=== PATIENT | female | born 1995 | race Caucasian/White ===

== ENCOUNTER 2017-07-06 14:40 | Emergency (ER) | payer MEDICAID, SELFPAY ==
[2017-07-06 14:41] VITALS: BP 144/93; PULSE 108; RESP 18; TEMP 37; O2SAT 97; BMI 33.6
[2017-07-06 15:57] VITALS: PULSE 92; RESP 18
[2017-07-06] MEDS: Ipratropium/Albuterol Sulfate 3 ML AMPUL.NEB INHALATION (15:57)
--- NOTE | 2017-07-06 16:24 | ED.DCSUM_ITS ---
- ER Visit Summary Date of Service: 07/06/17 Chief Complaint: [] Runny nose harsh cough for about a week asthma History of Present Illness: The patient is a 21 F [] those symptoms for about 1 week she has been seen by urgent care she is on prednisone taper she reports the cough is still very harsh generally dry nonproductive her nose is running. She was not tested for the flu but she was tested for strep throat negative. She has her inhalers at home when she reports her asthma is generally stable she is doing fine with it is just the coughing Physical Examination: [] Here her nose is congested her throat is clear her lungs sound clear heart tones are normal abdomen soft nontender upper lower extremities unremarkable she is resting comfortably bed she has no major cough now Test Results: [] Emergency Department Course and Treatment: [] Explained to patient we could do a chest x-ray she declined that her main issue is the cough, I will treat her with Kenalog IM, Tylenol No. 3 as a cough suppressant, Flonase to help with the rhinorrhea she has all of her other asthma meds at home she is would benefit from one day off work and she will follow with her doctors the next few days return for change in symptoms Treatment Plan: [] Disposition: [] Home stable Impression: [] URI with harsh cough exacerbation of asthma This note was generated with [employer] dictation software. It may contain incorrect words, spelling, and punctuation that were not noted in review of the chart prior to signing ED Disposition - Plan for ED Patient: Chief Complaint: Cold Sx Referrals: Rena Gamino MD [Primary Care Provider] -
--- NOTE | 2017-07-06 16:24 | ED.DEP ---
ED Disposition - Plan for ED Patient: Chief Complaint: Cold Sx Instructions: ED Upper Resp Infec No Abx Tx, ED Flu Prescriptions: Acetaminophen/Codeine #3 [Tylenol #3 Tablet] 1 tab PO QHS #10 tab Fluticasone 0.05% [Flonase Nasal [place]] 1 spray NASAL BID #1 nasal.sry Referrals: Rena Gamino MD [Primary Care Provider] -
[2017-07-06] MEDS: Triamcinolone Acetonide 40 MG/ML Vial IM (16:45)
[2017-07-06 17:14] VITALS: BP 126/67; PULSE 103; RESP 16
== END 2017-07-06 17:17 | disposition home or self-care (01) ==
LOC: ED 15:52
PROVIDERS: Emergency Provider Emergency Medicine; Family Provider Family Medicine; PCP Family Medicine
DX: J06.9 Acute upper respiratory infection, unspecified (principal); J45.901 Unspecified asthma with (acute) exacerbation
CPT/HCPCS: 94640; 99282

== ENCOUNTER 2017-07-09 23:06 | Emergency (ER) | payer MEDICAID, SELFPAY ==
[2017-07-09 23:07] VITALS: BP 156/80; PULSE 95; RESP 16; TEMP 36.7; O2SAT 96; BMI 34.1
--- NOTE | 2017-07-09 23:30 | ED.DCSUM_ITS ---
- ER Visit Summary Date of Service: 07/09/17 Chief Complaint: [Sore throat] History of Present Illness: The patient is a 21 F [presents to the emergency department chief complaint of a sore throat for the last 3-4 days. Patient states that about 5 or 6 days ago she developed a cough and body aches and was seen at an urgent care diagnosed with an upper respiratory infection. The following day the patient was seen in the emergency department and diagnosed with upper respiratory infection and possible influenza. Patient states the cough is improved but now the throat is causing her more discomfort. She denies any fevers. Patient denies sick contacts.] Physical Examination: [HEENT-PERRLA, EOMI. Cranial nerves II through XII grossly intact. TMs clear. Mucous membranes moist. Mild anterior cervical lymphadenopathy slightly tender on the left adenopathy. Mild pharyngeal erythema. No exudates noted. Uvula in the midline. No trismus. Cardiovascular-regular rate and rhythm without murmur or ectopy Lungs-clear to auscultation, chest wall stable without crepitus or subcu emphysema Abdomen-normoactive bowel sounds, soft, nontender, no rebound or rigidity, no peritoneal signs. Extremities-intact ?4, normal range of motion, normal pulses, atraumatic] Test Results: [Rapid strep screen performed] was negative Emergency Department Course and Treatment: [] Treatment Plan: [Patient advised to use Motrin or Tylenol for discomfort and try saltwater gargles] Disposition: [Discharged home in stable condition. Patient advised to return if difficulty swallowing own secretions high fevers, or condition should worsen in any way.] Impression: [Viral pharyngitis] This note was generated with [employer] dictation software. It may contain incorrect words, spelling, and punctuation that were not noted in review of the chart prior to signing ED Disposition - Plan for ED Patient: Chief Complaint: Sore Throat Referrals: Rena Gamino MD [Primary Care Provider] -
--- NOTE | 2017-07-09 23:45 | ED.DEP ---
ED Disposition - Plan for ED Patient: Chief Complaint: Sore Throat Instructions: ED Pharyngitis Viral Referrals: Rena Gamino MD [Primary Care Provider] - 5-7 Days
[2017-07-09 23:48] VITALS: BP 137/77; PULSE 95; O2SAT 99
== END 2017-07-09 23:53 | disposition home or self-care (01) ==
LOC: ED 23:42
PROVIDERS: Emergency Provider Emergency Medicine; Family Provider Family Medicine; PCP Family Medicine
DX: J02.9 Acute pharyngitis, unspecified (principal); J45.909 Unspecified asthma, uncomplicated
CPT/HCPCS: 87880; 99282

== ENCOUNTER → 2017-11-18 17:47 | Outpatient (CLI) | payer OTHER, SELFPAY ==
[2017-11-18 18:17] LABS: Absolute Lymphocyte Count 2.28 X10^3/ul (0.83-4.51); Absolute Neutrophil Count 5.9 X10^3/uL (2.0-7.7); Basophil# 0.02 X10^3/uL; Basophil% 0.2 % (0-1); Eosinophil# 0.13 X10^3/uL; Eosinophils% 1.5 % (0-5); Hematocrit 36.5 % (37-47); Hemoglobin 12.4 g/dl (12.0-15.0); Lymphocyte # 2.28 X10^3/ul (4.0); Lymphocyte % 25.6 % (19-41); Mean Corpuscular Hgb 27.7 pg (27.0-32.0); Mean Corpuscular Volume 81.5 fL (81-99); Monocyte# 0.58 X10^3/uL; Monocyte% 6.5 % (0-10); Neutrophil # 5.86 X10^3/uL (2.7-7.7); Neutrophil % 65.9 % (47-70); POSITIVE COUNT NO; POSITIVE DIFFERENTIAL NO; POSITIVE MORPHOLOGY NO; Platelet Count 272 K/mm3 (150-450); RBC Distribution Width CV 12.9 % (11.6-14.6); RBC Distribution Width SD 38.2 fl (35.1-43.9); Red Blood Count 4.48 M/mm3 (4.2-5.4); White Blood Count 8.9 K/mm3 (4.4-11.0)
[2017-11-18 19:58] LABS: Glucose Challenge Gest 1H 50g 107 mg/dL (70-140)
[2017-11-18 21:10] LABS: Chlamydia Trachomatis by PCR Negative (Negative); Neisserai gonorrhoeae by PCR Negative (Negative); Probe Check PASS; Sample Adequacy Control PASS; Specimen Processing Control PASS
[2017-11-19 10:43] LABS: HIV - WCH Non-Reactive (Nonreactive); Rubella IgG 12.8 IU/mL
[2017-11-21 03:47] LABS: Rapid Plasmin Reagin (RPR) NONREACTIVE (NONREACTIVE)
[2017-11-21 07:08] LABS: HEPATITIS B SURFACE AG Negative (Negative)
[2017-11-27 13:06] LABS: HPV APTIMA, High Risk Positive (Negative); HPV Reflexed? YES, CHARGE PATIENT
== END ==
PROVIDERS: Family Provider Family Medicine; PCP Family Medicine; Visit Provider Obstetrics & Gynecology
DX: Z34.90 Encounter for supervision of normal pregnancy, unspecified, unspecified trimester (principal); Z12.4 Encounter for screening for malignant neoplasm of cervix
CPT/HCPCS: 36415; 82950; 85025; 86592; 86703; 86762; 86850; 86900; 87086; 87088; 87340; 87491; 87591; 87624; 88175; G0145

== ENCOUNTER → 2017-11-27 14:47 | Outpatient (CLI) | payer OTHER, SELFPAY ==
--- NOTE | 2017-11-27 14:49 | US_ITS ---
STUDY: FIRST TRIMESTER OBSTETRICAL ULTRASOUND REASON FOR EXAM: Female, 22 years old. Dating. LMP: 09/22/2017 TECHNIQUE: Transabdominal and Transvaginal PRIOR ULTRASOUND: None. FINDINGS: There is visualization of a single gestational sac in a normal intrauterine position. The mean sac diameter (MSD) measures 2.1 cm, indicating an estimated gestational age (EGA) of 7 weeks, 1 days. The gestational sac shape is within normal limits. There is a visualized yolk sac. The yolk sac measures 5 mm. The placenta is non-visualized. There is visualization of a live embryo. The crown-rump length (CRL) measures 1.2 cm, indicating an estimated gestational age (EGA) of 7 weeks, 3 days. There is demonstrated cardiac activity with a heart rate of 141 bpm. The estimated gestation age (EGA) by LMP is 9 weeks, 3 days. The estimated date of delivery (LORETTA) by LMP is 06/29/2018. The estimated gestation age (EGA) by US is 7 weeks, 2 days. The estimated date of delivery (LORETTA) by US is 07/14/2018. The uterus measures 8.9 x 6.7 x 5.0 cm. There is no demonstrated uterine fibroid. The cervix is closed. The right ovary measures 4.4 x 2.2 x 1.8 cm. There is no right ovarian cyst. There is no visualized right adnexal mass or complex lesion. The left ovary measures 3.9 x 2.7 x 2.3 cm. There is a 2 cm cyst. There is no visualized left adnexal mass or complex lesion. There is no fluid in the cul de sac. US/Init OB < 14Wks US IMPRESSION: Single live intrauterine gestation with ultrasound EGA of 7 weeks 2 days. Electronically Signed: Otis Kumar MD at 16:20 EDT , Service support ,
== END ==
LOC: OPUS 14:48
PROVIDERS: Family Provider Family Medicine; PCP Family Medicine; Visit Provider Obstetrics & Gynecology
DX: N92.6 Irregular menstruation, unspecified (principal)
CPT/HCPCS: 76801

== ENCOUNTER → 2018-02-02 12:25 | Outpatient (CLI) | payer OTHER, MEDICAID, SELFPAY | PROVIDERS: Family Provider Family Medicine; PCP Family Medicine; Visit Provider Obstetrics & Gynecology | DX: Z36.9 Encounter for antenatal screening, unspecified (principal) | CPT/HCPCS: 76805 ==

== ENCOUNTER → 2018-02-27 16:01 | Outpatient (CLI) | payer OTHER, SELFPAY ==
--- NOTE | 2018-02-27 16:03 | US_ITS ---
STUDY: SECOND AND THIRD TRIMESTER OBSTETRICAL ULTRASOUND REASON FOR EXAM: Female, 22 years old. For anatomy. Follow-up. LMP: 10/07/2017 TECHNIQUE: Transabdominal PRIOR ULTRASOUND: 02/02/2018 FINDINGS: There is a single intrauterine fetus. The fetus is in a breech presentation. There is demonstrated cardiac activity with a heart rate of 150 bpm. There is a normal amniotic fluid volume. The placenta is anterior in location and is not low lying. The cervix measures 4.4 cm in length. The adnexal regions are not visualized. BIOMETRY: BPD: 5.0 cm: 21 weeks, 2 days HC: 18.8 cm: 21 weeks, 1 days AC: 16.1 cm: 21 weeks, 2 days FL: 3.5 cm: 21 weeks, 1 days FL/BPD: 69% FL/AC: 22% HC/AC: 1.16 age by current US: 21 weeks, 2 days. LORETTA by current US: 07/08/2018. Estimated weight: 401 grams, +/- 59 grams, 82 %. age by prior US: 21 weeks, 3 days. LORETTA by prior US: 07/07/2018. Age by LMP: 20 weeks, 3 days. LORETTA by LMP: 07/14/2018. ANATOMY: Visualized. Gender: Male Face, nose and lips. Diaphragm. Spine: cervical spine. thoracic spine. lumbar spine. sacrum. US/OB Limited (No Biometrics) IMPRESSION: 1. Single alive intrauterine uterine is seen in a breech position. 2. Estimated gestational age by current ultrasound: 21 weeks 2 days and LORETTA: 07/08/2018. Based on LMP gestational age: 20 weeks 3 days and LORETTA: 07/14/2018. Based on prior ultrasound gestational age: 21 weeks 3 days and LORETTA: 07/07/2018. 3. Unremarkable visualized anatomy, as described. Electronically Signed: Alan Lambert MD at 21:16 EDT Tel , Service support ,
== END ==
PROVIDERS: Visit Provider Obstetrics & Gynecology
DX: Z34.90 Encounter for supervision of normal pregnancy, unspecified, unspecified trimester (principal)
CPT/HCPCS: 76815

== ENCOUNTER → 2018-03-09 16:55 | Outpatient (CLI) | payer MEDICAID, SELFPAY | PROVIDERS: Referring Provider Obstetrics & Gynecology; Visit Provider Obstetrics & Gynecology | DX: Z34.90 Encounter for supervision of normal pregnancy, unspecified, unspecified trimester (principal) | CPT/HCPCS: 36415 ==

== ENCOUNTER → 2018-04-16 12:55 | Outpatient (CLI) | payer MEDICAID, SELFPAY ==
[2018-04-16 13:18] LABS: Absolute Lymphocyte Count 1.93 X10^3/ul (0.83-4.51); Absolute Neutrophil Count 7.4 X10^3/uL (2.0-7.7); Basophil# 0.01 X10^3/uL; Basophil% 0.1 % (0-1); Hematocrit 33.1 % (37-47); Hemoglobin 11.1 g/dl (12.0-15.0); Lymphocyte # 1.93 X10^3/ul (4.0); Lymphocyte % 19.1 % (19-41); Mean Corp Hgb Conc 33.5 g/gl (32-36); Mean Corpuscular Hgb 27.7 pg (27.0-32.0); Mean Corpuscular Volume 82.5 fL (81-99); Mean Platelet Vol. 9.7 fl (6.2-12.0); Monocyte# 0.59 X10^3/uL; Monocyte% 5.8 % (0-10); Neutrophil % 73.1 % (47-70); Platelet Count 265 K/mm3 (150-450); RBC Distribution Width CV 13.4 % (11.6-14.6); Red Blood Count 4.01 M/mm3 (4.2-5.4); White Blood Count 10.1 K/mm3 (4.4-11.0)
[2018-04-16 13:19] LABS: POSITIVE COUNT NO; POSITIVE DIFFERENTIAL NO; POSITIVE MORPHOLOGY NO
[2018-04-16 13:35] LABS: Glucose Challenge Gest 1H 50g 112 mg/dL (70-140)
== END ==
PROVIDERS: Referring Provider Obstetrics & Gynecology; Visit Provider Obstetrics & Gynecology
DX: Z34.90 Encounter for supervision of normal pregnancy, unspecified, unspecified trimester (principal)
CPT/HCPCS: 36415; 82950; 85025

== ENCOUNTER 2018-06-22 11:40 | Outpatient (CLI) | payer MEDICAID, SELFPAY ==
[2018-06-22 10:53] VITALS: BMI 37.3
[2018-06-22 11:48] VITALS: BMI 39.2
[2018-06-22 12:31] LABS: Hematocrit 35.2 % (37-47); Hemoglobin 11.7 g/dl (12.0-15.0); Mean Corp Hgb Conc 33.2 g/gl (32-36); Mean Corpuscular Hgb 26.7 pg (27.0-32.0); Mean Corpuscular Volume 80.4 fL (81-99); Mean Platelet Vol. 10.1 fl (6.2-12.0); Platelet Count 242 K/mm3 (150-450); RBC Distribution Width CV 14.6 % (11.6-14.6); RBC Distribution Width SD 41.6 fl (35.1-43.9); Red Blood Count 4.38 M/mm3 (4.2-5.4); White Blood Count 9.3 K/mm3 (4.4-11.0)
[2018-06-22 12:32] LABS: Scan Indicated on CBC? Y/N NO
[2018-06-22 12:40] LABS: Protein:Creat Ratio 143 mg/g CRE (0-200)
[2018-06-22 12:43] LABS: AST(SGOT) 10 U/L (15-37); Alanine Aminotransfer ALT/SGPT 12 U/L (13-56); Creatinine, Serum 0.58 mg/dL (0.55-1.02); EST Glomerular Filtration Rate 139 mL/min (>60); Est Glom Filt Rate - Afr Amer 169 mL/min (>60); Estimated Creatinine Clearance 154.78 ml/min; Uric Acid 3.5 mg/dL (2.6-6.0)
[2018-06-22 12:50] LABS: Prothrombin Time (Protime)PT. 13.5 SECONDS (11.7-14.9)
[2018-06-22 12:51] LABS: Partial Thromboplast Time 24.3 Seconds (24.1-36.2)
--- NOTE | 2018-06-23 02:15 | OB.TRI.NOTE ---
- Problem List (1) Elevated blood pressure affecting in third trimester, antepartum Status: Acute History of Present Illness Date of Service: 06/22/18 Was patient seen by the physician?: Yes Reason For Visit: R/O PRE E History of Present Illness: elevated bp in office Allergies shellfish derived Allergy (Verified 06/22/18 11:58) Anaphylaxis - Pertinent Past Medical History Medical History: Past Medical History (Last Reviewed 06/22/18 @ 10:52 by Jammie Cuenca) Asthma (Chronic) no inhaler needed PCOS (polycystic ovarian syndrome) (Inactive) Laboratory Studies: Laboratory Tests 06/22/18 06/22/18 06/22/18 Range/Units 12:00 12:00 12:00 WBC 9.3 (4.4-11.0) K/mm3 RBC 4.38 (4.2-5.4) M/mm3 Hgb 11.7 L (12.0-15.0) g/dl Hct 35.2 L (37-47) % MCV 80.4 L (81-99) fL MCH 26.7 L (27.0-32.0) pg MCHC 33.2 (32-36) g/gl RDW 14.6 (11.6-14.6) % RDW Differential 41.6 (35.1-43.9) fl Plt Count 242 (150-450) K/mm3 MPV 10.1 (6.2-12.0) fl PT 13.5 (11.7-14.9) SECONDS INR 1.0 APTT 24.3 (24.1-36.2) Seconds Creatinine 0.58 (0.55-1.02) mg/dL Estim Creat Clear Calc 154.78 ml/min Est GFR (MDRD) Af Amer 169 (>60) mL/min Est GFR (MDRD) Non-Af 139 (>60) mL/min Uric Acid 3.5 (2.6-6.0) mg/dL AST 10 L (15-37) U/L ALT 12 L (13-56) U/L U Random Total Protein (<11.9) mg/dL Urine Creatinine (NO RANGE EST.) mg/dL Protein/Creatinin Ratio (0-200) mg/g CRE 06/22/18 Range/Units 11:50 WBC (4.4-11.0) K/mm3 RBC (4.2-5.4) M/mm3 Hgb (12.0-15.0) g/dl Hct (37-47) % MCV (81-99) fL MCH (27.0-32.0) pg MCHC (32-36) g/gl RDW (11.6-14.6) % RDW Differential (35.1-43.9) fl Plt Count (150-450) K/mm3 MPV (6.2-12.0) fl PT (11.7-14.9) SECONDS INR APTT (24.1-36.2) Seconds Creatinine (0.55-1.02) mg/dL Estim Creat Clear Calc ml/min Est GFR (MDRD) Af Amer (>60) mL/min Est GFR (MDRD) Non-Af (>60) mL/min Uric Acid (2.6-6.0) mg/dL AST (15-37) U/L ALT (13-56) U/L U Random Total Protein 13.0 H (<11.9) mg/dL Urine Creatinine 90.80 (NO RANGE EST.) mg/dL Protein/Creatinin Ratio 143 (0-200) mg/g CRE NST - FHR Rate Baby A Baseline: 140 Variability:: Moderate Accelerations:: 15 x 15 Decelerations:: None NST Reactive:: Yes FHR Category:: Category I Uterine Activity:: no regular Impression/Plan elevated bps- in triage all bps WNL and normal labs, reassuring NST and testing, dc home preeclampsia precautions.
== END 2018-06-22 13:10 | disposition home or self-care (01) ==
LOC: WPOUT 11:42 → WP 11:43
PROVIDERS: Referring Provider Obstetrics & Gynecology; Visit Provider Obstetrics & Gynecology
DX: O26.893 Other specified pregnancy related conditions, third trimester (principal); R03.0 Elevated blood-pressure reading, without diagnosis of hypertension; Z3A.00 Weeks of gestation of pregnancy not specified
CPT/HCPCS: 36415; 59025; 59050; 82565; 82570; 84156; 84450; 84460; 84550; 85027; 85610; 85730; 87653; 99218; G0378

== ENCOUNTER → 2018-06-22 13:45 | Outpatient (CLI) | payer MEDICAID, SELFPAY ==
[2018-06-22 11:48] VITALS: BMI 39.2
[2018-06-22 15:50] LABS: Group B Strep DNA By PCR POSITIVE (Negative); Probe Check PASS
== END ==
PROVIDERS: Referring Provider Obstetrics & Gynecology; Visit Provider Obstetrics & Gynecology
DX: Z34.90 Encounter for supervision of normal pregnancy, unspecified, unspecified trimester (principal)
CPT/HCPCS: 87653

== ENCOUNTER 2018-06-26 11:25 | Outpatient (CLI) | payer MEDICAID, SELFPAY ==
[2018-06-26 11:56] VITALS: BMI 39.2
[2018-06-26 12:35] LABS: ROM Internal Control Test YES-OK TO RESULT pt. (Internal QC); ROM Patient Test Negative (Negative)
[2018-06-26 12:53] LABS: Bacteria 0 SEEN /hpf (None Seen); Mucous, Urine 0 SEEN /hpf (<or=2+); Red Blood Cells-Urine 0 SEEN /hpf (0-5); White Blood Cells 0 SEEN /hpf (0-5)
[2018-06-26 12:57] LABS: Color, Urine Straw (Yellow); Glucose, Dipstick Normal (Normal); Ketone-Dipstick Negative (Negative); Leukocyte Esterase-Dipstick 100 /ul (Negative); Nitrite-Dipstick Negative (Negative); Occult Blood-Urine Negative /ul (Negative); Protein-Dipstick Negative (Negative); Urine Bilirubin Dipstick Negative (Negative); Urine Clarity Sl. Cloudy (Clear); Urine Urobilinogen Normal (Normal)
[2018-06-26 13:04] LABS: Squamous Epithelial Cells - UA 10-25 SEEN /hpf (5-10)
--- NOTE | 2018-07-15 00:31 | OB.TRI.HP_ITS ---
- Problem List (1) Elevated blood pressure affecting in third trimester, antepartum Status: Acute History of Present Illness Date of Service: 06/26/18 Reason For Visit: R/O LABOR History of Present Illness: elevated blood pressure Allergies shellfish derived Allergy (Verified 07/13/18 16:19) Anaphylaxis - Pertinent Past Medical History Medical History: Past Medical History (Last Reviewed 07/13/18 @ 16:20 by Jammie Cuenca) Asthma (Chronic) no inhaler needed PCOS (polycystic ovarian syndrome) (Inactive) Laboratory Studies: Laboratory Tests 06/26/18 06/26/18 Range/Units 12:45 12:05 Urine Color Straw (Yellow) Urine Clarity Sl. Cloudy (Clear) Urine pH 7.0 (5.0 - 8.0) Ur Specific [place] 1.010 (1.002-1.030) Urine Protein Negative (Negative) mg/dl Urine Glucose (UA) Normal (Normal) mg/dl Urine Ketones Negative (Negative) mg/dl Urine Occult Blood Negative (Negative) /ul Urine Nitrite Negative (Negative) Urine Bilirubin Negative (Negative) mg/dL Urine Urobilinogen Normal (Normal) mg/dl Ur Leukocyte Esterase 100 H (Negative) /ul Urine RBC 0 SEEN (0-5) /hpf Urine WBC 0 SEEN (0-5) /hpf Ur Squamous Epith Cells 10-25 SEEN (5-10) /hpf Urine Bacteria 0 SEEN (None Seen) /hpf Urine Mucus 0 SEEN (<or=2+) /hpf Vag Amniotic Fld Detect Negative (Negative) NST - FHR Rate Baby A Baseline: 135 Variability:: Moderate Accelerations:: 15 x 15 Decelerations:: None NST Reactive:: Yes FHR Category:: Category I Uterine Activity:: no regular Impression/Plan elevated blood pressures- repeats WNL and normal labs, dc home preeclampsia precautions
--- OUTSIDE RECORDS SUMMARY | 2018-08-30 23:19 | XMS RPT_ITS ---
:1995 Author Organization OHIP Support Name Relationship Address Phone OCTAVIO KOEHLER Unavailable [address] + [place] [address] [facility] Unavailable [address] + [place] [address] OCTAVIO KOEHLER Unavailable [address] + [place] [address] [facility] Unavailable [address] + [place] [address] OCTAVIO KOEHLER Unavailable [address] + [place] [address] [facility] Unavailable [address] + [place] [address] OCTAVIO KOEHLER Unavailable [address] + [place] [address] [facility] Unavailable [address] + [place] [address] OCTAVIO KOEHLER Unavailable [address] + [place] [address] [facility] Unavailable [address] + [place] [address] OCTAVIO KOEHLER Unavailable [address] + [place] [address] [facility] Unavailable [address] + [place] [address] OCTAVIO KOEHLER Unavailable [address] + [place] [address] [facility] Unavailable [address] + [place] [address] OCTAVIO KOEHLER Unavailable [address] + [place] [address] [facility] Unavailable [address] + [place] [address] OCTAVIO KOEHLER Unavailable [address] + [place] [address] [facility] Unavailable [address] + [place] [address] OCTAVIO KOEHLER Unavailable [address] + [place] [address] [facility] Unavailable [address] + [place] [address] OCTAVIO KOEHLER Unavailable [address] + [place] [address] [facility] Unavailable [address] + [place] [address] OCTAVIO KOEHLER Unavailable [address] + [place] [address] [facility] Unavailable [address] + [place] [address] OCTAVIO KOEHLER Unavailable [address] + [place] [address] [facility] Unavailable [address] + [place] [address] OCTAVIO KOEHLER Unavailable [address] + [place] [address] [facility] Unavailable [address] + [place] [address] OCTAVIO KOEHLER Unavailable [address] + [place] [address] [facility] Unavailable [address] + [place] [address] OCTAVIO KOEHLER Unavailable [address] + [place] [address] [facility] Unavailable [address] + [place] [address] OCTAVIO KOEHLER Unavailable [address] + [place] [address] [facility] Unavailable [address] + [place] [address] OCTAVIO KOEHLER Unavailable [address] + [place] [address] [facility] Unavailable [address] + [place] [address] SYDNEYER OCTAVIO Unavailable [address] + [place] [address] [facility] Unavailable [address] + [place] [address] HECRICARDAER OCTAVIO Unavailable [address] + [place] [address] [facility] Unavailable [address] + [place] [address] SYDNEYER OCTAVIO Unavailable [address] + [place] [address] [facility] Unavailable [address] + [place] [address] SYDNEYER, OCTAVIO Unavailable [address] + [place] [address] [facility] Unavailable [address] + [place] [address] RODO OCTAVIO Unavailable [address] + [place] [address] [facility] Unavailable [address] + [place] [address] SYDNEYER OCTAVIO Unavailable [address] + [place] [address] [facility] Unavailable [address] + [place] [address] SYDNEYER OCTAVIO Unavailable [address] + [place] [address] [facility] Unavailable Unavailable Unavailable CURTIS, ALICIA Unavailable [address] + [place] [address] BRIGHT, ALICIA Unavailable [address] + [place] [address] BRIGHT, ALICIA Unavailable [address] + [place] [address] BRIGHT, ALICIA Unavailable [address] + [place] [address] [place] [facility] Un[address] +. [place] [address] CURTIS ALICIA Unavailable [address] + [place] [address] [facility] Unavailable [address] +[place] [address] Care Team Providers Name Role Phone SUSANA WOLFF MD Attending Unavailable HANNY, RENA Primary Care Unavailable Marcanthony, Gricel Attending Unavailable Hanny, Rena Referring Unavailable Marcanthony, Gricel Attending Unavailable Hanny, Rena Referring Unavailable Marcanthony, Gricel Attending Unavailable Hanny, Rena Referring Unavailable Marcanthony, Gricel Attending Unavailable Hanny, Rena Referring Unavailable Marcanthony, Gricel Attending Unavailable Hanny, Rena Referring Unavailable Marcanthony, Gricel Attending Unavailable Marcanthony, Gricel Referring Unavailable Marcanthony, Gricel Attending Unavailable Marcanthony, Gricel Referring Unavailable Marcanthony, Gricel Attending Unavailable Marcanthony, Gricel Referring Unavailable Marcanthony, Gricel Consulting Unavailable Marcanthony, Gricel Attending Unavailable Marcanthony, Gricel Referring Unavailable Marcanthony, Gricel Attending Unavailable Hanny, Rena Referring Unavailable JwayyePenny mancilla Attending Unavailable Hanny, Rena Primary Care Unavailable Hanny, Rena Primary Care Unavailable Last Castillo Attending Unavailable Marcanthony, Gricel Attending Unavailable Marcanthony, Gricel Referring Unavailable Hanny, Rena Primary Care Unavailable Marcanthony, Gricel Attending Unavailable Hanny, Rena Referring Unavailable Hanny, Rena Primary Care Unavailable Marcanthony, Gricel Attending Unavailable Hanny, Rena Primary Care Unavailable Marcanthony, Gricel Attending Unavailable Hanny, Rena Referring Unavailable Hanny, Rena Primary Care Unavailable Marcanthony, Gricel Attending Unavailable Hanny, Rena Referring Unavailable Hanny, Rena Primary Care Unavailable Marcanthony, Gricel Attending Unavailable Hanny, Rena Primary Care Unavailable Marcanthony, Gricel Attending Unavailable Hanny, Rena Referring Unavailable Marcanthony, Gricel Attending Unavailable Hanny, Rena Referring Unavailable Hanny, Rena Primary Care Unavailable Marcanthony, Gricel Attending Unavailable Marcanthony, Gricel Referring Unavailable Primay Care Physicia, No Primary Care Unavailable Marcanthony, Gricel Attending Unavailable Hanny, Rena Referring Unavailable Marcanthony, Gricel Attending Unavailable Marcanthony, Gricel Referring Unavailable Primay Care Physicia, No Primary Care Unavailable Marcanthony, Gricel Attending Unavailable Hanny, Rena Referring Unavailable Marcanthony, Gricel Attending Unavailable Hanny, Rena Referring Unavailable Marcanthony, Gricel Attending Unavailable Marcanthony, Gricel Referring Unavailable Primay Care Physicia, No Primary Care Unavailable Pratima Ulloa Attending Unavailable Hanny, Rena Referring Unavailable PROBLEMS PROBLEMS DATE TYPE CONDITION / CODE ATTENDING STATUS SOURCE 06/30/2018 Unknown R87.610 - Atypical Marcanthony, Active [place] squamous cells of [facility] undetermined Hospital significance on Repository cytologic smear of cervix (ASC-US) / R87.610(ICD-10) 06/30/2018 Unknown Z34.03 - Encounter Marcanthony, Active [place] for supervision of [facility] normal first Hospital , third Repository trimester / Z34.03(ICD-10) 06/30/2018 Unknown J45.20 - Mild Marcanthony, Active [place] intermittent [facility] asthma, Hospital uncomplicated / Repository J45.20(ICD-10) 06/30/2018 Unknown O26.86 - Pruritic Marcanthony, Active [place] urticarial papules [facility] and plaques of Hospital (PUPPP) / Repository O26.86(ICD-10) 06/30/2018 Unknown Z3A.38 - 38 weeks Marcanthony, Active [place] gestation of [facility] / Hospital Z3A.38(ICD-10) Repository 06/30/2018 Unknown A49.1 - Marcanthony, Active [place] Streptococcal [facility] infection, Hospital unspecified site / Repository A49.1(ICD-10) 06/22/2018 Unknown Z34.90 - Encounter Marcanthony, Active [place] for supervision of [facility] normal , Hospital unspecified, Repository unspecified trimester / Z34.90(ICD-10) 06/22/2018 Unknown Z3A.34 - 34 weeks Marcanthony, Active [place] gestation of [facility] / Hospital Z3A.34(ICD-10) Repository 06/22/2018 Unknown O16.3 - Unspecified Marcanthony, Active [place] maternal [facility] hypertension, third Hospital trimester / Repository O16.3(ICD-10) 05/25/2018 Unknown Z3A.33 - 33 weeks Marcanthony, Active [place] gestation of [facility] / Hospital Z3A.33(ICD-10) Repository 05/18/2018 Unknown Z3A.31 - 31 weeks Marcanthony, Active [place] gestation of [facility] / Hospital Z3A.31(ICD-10) Repository 06/12/2018 Unknown Z34.02 - Encounter Marcanthony, Active [place] for supervision of [facility] normal [facility] Hospital , second Repository trimester / Z34.02(ICD-10) 06/12/2018 Unknown Z3A.25 - 25 weeks Marcanthony, Active [place] gestation of [facility] / Hospital Z3A.25(ICD-10) Repository 06/12/2018 Unknown Z23 - Encounter for Marcanthony, Active [place] immunization / [facility] Z23(ICD-10) Hospital Repository 06/12/2018 Unknown Z36.9 - Encounter Marcanthony, Active [place] for [facility] screening, Hospital unspecified / Repository Z36.9(ICD-10) 06/12/2018 Unknown Z34.01 - Encounter Marcanthony, Active [place] for supervision of [facility] normal [facility] Hospital , first Repository trimester / Z34.01(ICD-10) 06/12/2018 Unknown E28.2 - Polycystic Marcanthony, Active [place] ovarian syndrome / [facility] E28.2(ICD-10) Hospital Repository 06/12/2018 Unknown N92.6 - Irregular Marcanthony, Active [place] menstruation, [facility] unspecified / Hospital N92.6(ICD-10) Repository PROCEDURES PROCEDURES No Procedure Records FoundRESULTS RESULTS HISTOLOGIC AIDE OFFICE VISIT Observed: 06/30/2018 Status: F Source: [facility] REPORT 4:30 PM [facility] REPOSITORY [facility] [address] [place] [address]. [address] [place] [address] OFFICE VISIT Date of Service: 06/30/18 MR#: [id number] Acct: [id number] Name: SHAKIRA RAMOS Rosemary Rep #: [id number] : 1995 Provider: Gricel Modi MD Age/Sex: 22/F Location: [facility] Status: Signed Intake Vital Signs06/30/18 Body Mass Index (BMI) 39.2 06/30/18 Height 5 ft 8 in 06/30/18 Weight: 260 lb 06/30/18 Body Mass Index (BMI) 39.5 06/30/18 Blood Pressure 120/82 H Intake Visit Reasons: 38 WK OB Chief Complaint: est ob Utility Pipe Layer Required: No Is patient in pain?: No Allergies shellfish derived Allergy (Verified 06/30/18 15:55) Anaphylaxis Medications NK 06/30/18 [History Confirmed 06/30/18] Last Menstral Period: 09/22/17 Zika: Zika virus screening: Negative : No PFSH PFSH Medical History Asthma (Chronic) PCOS (polycystic ovarian syndrome) (Inactive) Social History Smoking Status: Former smoker alcohol intake: never substance use type: does not use caffeine: Yes what type of physical activity do you participate in: none seatbelt use: always do you feel safe at home: Yes 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: Kctfnjdys-Vdpsgph-Gkjtfmh 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 OB Visit LORETTA Calculator Estimated Delivery Date 07/14/18 Based on Ultrasound Date 11/27/17 Current WG 38w 0d Number 1 Expected Delivery Route/Plan Specific Issue/Plans flu vaccine: given tdap vaccine: given rhogam: NA LARC form signed: perlita labor support person: Octavio pain management: epidural cut cord/dad catch: yes : yes PP control planned: considering IUD special requests: [] Initial Weight: 241 lb Date Weight BP Urine PrFHR FuHt Pres MoCTX DilationFetal StVisit NoProviderComments E ot v te GA G Effac lucose ed Visit Notes Visit Date: 06/30/18 no vb lof good f mn oregular ctx Gricel Modi MD on 06/30/18 Visit Date: 06/22/18 eelvated bp- recommend triage evaluation, nst, and blood work Gricel Modi MD on 06/22/18 no vb lof decr fm irregular ctx. Gricel Modi MD on 06/22/18 Visit Date: 06/08/18 no vb lof good fm n oregular ctx Gricel Modi MD on 06/08/18 Visit Date: 06/04/18 no vb lof good fm no regular ctx Gricel Modi MD on 06/04/18 Visit Date: 05/25/18 no vb lof good fm oregular ctx. has PUPPS rash Gricel Modi MD on 05/25/18 Visit Date: 05/18/18 no vb lof good fm no regualr ctx Gricel Modi MD on 05/18/18 Visit Date: 05/04/18 NO VB, LOF, Doing well LEON Ambrose on 05/04/18 Visit Date: 04/16/18 no vb lof good fm no regular ctx Gricel Modi MD on 04/16/18 Visit Date: 04/06/18 no vb lof good fm no regular ctx. Gricel Modi MD on 04/06/18 Visit Date: 03/09/18 no vb lof some fm. normal anatomy scan Gricel Modi MD on 03/14/18 Visit Date: 02/16/18 no vb cramping reschedule anatomy scan Gricel Modi MD on 02/16/18 Visit Date: 01/12/18 no vb crmaping less nausea doing well Gricel Modi MD on 01/14/18 Visit Date: 12/15/17 no vb cramping. has had decreased appetite.. Gricel Modi MD on 12/15/17 Visit Date: 11/18/17 No visit notes to display ACOG First Trimester First Trimester: Desire for , Alcohol, Tobacco Cessation, Illicit/Recreational Drug/Substance Use, Intimate Partner Violence, Barriers to care, Unstable Housing, Communication Barriers, Environmental/Work Hazards, Anticipated Course of Care, Toxoplasmosis Precations, Use of Any medications, Sexual activity, Exercise, Dental Care, Sauna/Hot tub use, Seat Belt use, Childbirth classes/Hospital facilities, , Travel, Indications for US and Screening for Aneuploidy Diagnostics Diagnostics Labs Hct 35.2 % (37-47) L 06/22/18 Hgb 11.7 g/dl (12.0-15.0) L 06/22/18 Glucose 1 Hr 50 gm 112 mg/dL (70-140) 04/16/18 Group B Strep DNA POSITIVE (Negative) H 06/22/18 Miscellaneous Test 03/09/18 Details: HIV: Urine Culture: Sequential Screen: NIPT Screen: Results [id number] Office Urine Glucose Negative Last Edit by Jammie Cuenca on 06/30/18 16:01 Office Urine Protein Negative Last Edit by Jammie Cuenca on 06/30/18 16:01 Assessment AND Plan Problems 1. Mild intermittent asthma without complication J45.20 no inhaler needed 2. ASCUS of cervix with negative high risk HPV R87.610 pap due 11/2018 3. 38 weeks gestation of Z3A.38 genetic, carrier, screening declined. anatomy scan WNL.Negative AFP screening 4. PUPP (pruritic urticarial papules and plaques of ) O26.86 supportive care 5. Encounter for supervision of normal first in third trimester Z34.03 PRR LORETTA 07/14/18 boy August boyfriend Octavio 6. GBS (group B streptococcus) infection A49.1 PCN in labor Plan movement and labor precautions reviewed. ACOG trimester education reviewed and updated. see problem list details for updated plan management information and see below for orders placed at this visit. GA appropriate handout given. Orders Orders: Coding Level of Care Code Off vis,est,level 3 Diagnoses Mild intermittent asthma without complication J45.20 Asthma severity: mild Asthma persistence: intermittent Asthma complication type: uncomplicated ASCUS of cervix with negative high risk HPV R87.610 38 weeks gestation of Z3A.38 Weeks of gestation: 38 weeks PUPP (pruritic urticarial papules and plaques of ) O26.86 Encounter for supervision of normal first in third trimester Z34.03 Normal : normal first Trimester: third trimester GBS (group B streptococcus) infection A49.1 06/30/18 1630 <Electronically signed by Gricel Modi MD> Date Gricel Modi MD Cosigner Signature: Date (if applicable) CC: PROGRESS Observed: 06/28/2018 Status: COMPLETED Source: [facility] 12:26 PM [facility] HNO ID: [id number] Author: Courtney Santos) Service: (none) Author Type: Nurse Practitioner Type: Progress Notes Filed: 06/28/2018 12:29 PM Note Text: Subjective HPI HPI Shakira Ramos is a 22 year old female who presents today for CC of left eye redness, drainage. This started 2 days ago. Has tried nothing for relief. Symptoms are worsened by nothing. 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 .Patient presents with: Conjunctivitis No past medical history on file. No past surgical history on file. ALLERGIES Patient has no known allergies. MEDICATIONS erythromycin ophthalmic ointment Use 1 application in both eyes three times daily for 7 days. albuterol HFA (PROAIR HFA) 90 mcg/actuation inhaler Inhale 2 Puffs as instructed every 4 hours as needed. Norethindrone Acet-Ethinyl Est (JUNE,) 1.5-30 mg-mcg tab Take by mouth. No family history on file. Social History Substance Use Topics - Smoking status: Never Smoker - Smokeless tobacco: Never Used - Alcohol use Not on file Review of Systems Constitutional: Negative for chills and fever. HENT: Positive for congestion. Negative for ear discharge, ear pain and sore throat. Eyes: Positive for discharge and redness. Negative for blurred vision, double vision, photophobia and pain. Neurological: Negative for headaches. Objective Blood pressure 118/78, pulse 84, temperature 36.7 ?C (98.1 ?F), temperature source Tympanic, resp. rate 14, weight 115.8 kg (255 lb 6.4 oz). Physical Exam Constitutional: She is oriented to person, place, and time and well-developed, well-nourished, and in no distress. Vital signs are normal. Non-toxic appearance. She does not have a sickly appearance. No distress. HENT: Right Ear: Hearing, tympanic membrane and external ear normal. Left Ear: Hearing, tympanic membrane, external ear and ear canal normal. Nose: No mucosal edema or sinus tenderness. Mouth/Throat: Uvula is midline, oropharynx is clear and moist and mucous membranes are normal. Eyes: Right eye exhibits discharge. Left eye exhibits discharge (left > right). Right conjunctiva is injected. Left conjunctiva is injected. Lymphadenopathy: Right cervical: No superficial cervical adenopathy present. Left cervical: No superficial cervical adenopathy present. No cervical lymphadenopathy bilaterally Neurological: She is oriented to person, place, and time. ASSESSMENT/PLAN: 1. Bacterial conjunctivitis - ICD9: 372.39, 041.9, ICD10: H10.9 Bacterial - see medication orders - course and contagiousness issues discussed, including hand washing. - Instructed to call if high fever, development of periorbital redness or swelling, eye pain, visual changes, concerns or if symptoms persist. - ERYTHROMYCIN 5 MG/GRAM (0.5 %) EYE OINTMENT Prescription instructions reviewed with patient as applicable. Patient advised if symptoms do not improve or if symptoms worsen sooner, to contact the office for further evaluation by their primary care physician. Potential red flag symptoms discussed with the patient. Reviewed appropriate action plan to take if red flag symptoms occur. Patient agreeable to treatment plan. Courtney Carvajal APRN.CNP CNOV Observed: 06/28/2018 Status: COMPLETED Source: [place] [place] 12:15 PM [facility] REPOSITORY Office Visit ([facility]) SHAKIRA RAMOS ([id number]) 1995 F Date Time Provider Department 06/28/18 12:15 PM [facility] During your visit today, we recorded the following information about you: Temperature Pulse Respiration Blood pressure 98.1 degrees 84/minute 14/minute 118/78 Weight 115.8 kg Courtney Carvajal APRN.CNP 06/28/2018 12:11 PM Signed [facility] PATIENT INFO CONJUNCTIVITIS OVERVIEW Conjunctivitis, also called pinkeye, is defined as an inflammation of the conjunctiva. The conjunctiva is the thin membrane that lines the inner surface of the eyelids and the whites of the eyes (called the sclera). Conjunctivitis can affect children and adults. The most common symptoms of conjunctivitis include a red eye and discharge. There are many potential causes of conjunctivitis, including bacterial or viral infections, allergies, or a non-specific condition (eg, a foreign body in the eye). All types of conjunctivitis cause a red eye, although not everyone with a red eye has conjunctivitis. TYPES OF CONJUNCTIVITIS There are four main types of conjunctivitis: bacterial, viral, allergic, and non-specific. Most cases of infectious conjunctivitis are viral in adults and children; however, bacterial conjunctivitis is more common in children than in adults. Viral conjunctivitis ? Viral conjunctivitis is typically caused by a virus that can also cause the common cold. A person may have symptoms of conjunctivitis alone, or as part of a general cold syndrome, with swollen lymph nodes (glands), fever, a sore throat, and runny nose. Viral conjunctivitis is highly contagious. It is spread by contact, usually with objects which have come into contact with the infected person's eye secretions. As examples, the virus can be transmitted when an infected person touches their eye and then touches another surface (eg, door handle) or shares an object that has touched their eye (eg, a towel or pillow case). The most common symptoms of viral conjunctivitis include redness, watery or mucus discharge, and a burning, radha, or gritty feeling in one eye. Some people have morning crusting followed by watery discharge, perhaps with some scant mucus discharge throughout the day. The second eye usually becomes infected within 24 to 48 hours. There is no cure for viral conjunctivitis. Recovery can begin within days, although the symptoms frequently get worse for the first three to five days, with gradual improvement over the following one to two weeks for a total course of two to three weeks. Some people experience morning crusting that continues for up to two weeks after the initial symptoms, although the daytime redness, irritation, and tearing should be much improved. Bacterial conjunctivitis ? Bacterial conjunctivitis is highly contagious, often affecting multiple family members or children within a classroom. Bacterial conjunctivitis is spread by contact, usually with objects which have come into contact with the infected person's eye secretions. As examples, the virus can be transmitted when an infected person touches their eye and then touches another surface (eg, door handle) or shares an object that has touched their eye (eg, a towel or pillow case). The most common symptoms of bacterial conjunctivitis include redness and thick discharge from one eye, although both eyes can become infected. The discharge may be yellow, white, or green, and it usually continues to drain throughout the day. The affected eye often is stuck shut in the morning. Most types of bacterial conjunctivitis resolve quickly and cause no permanent damage when treated with antibiotic eye drops or ointment Non-specific conjunctivitis ? It is possible to develop a red eye and discharge that is not caused by an infection or allergy. The most common causes include one of the following. ? People with a dry eye may have chronic or intermittent redness or discharge. A person whose eyes are irrigated after a chemical splash may have redness and discharge. ? A person with a foreign body (eg, dust, eyelash) in the eye may have redness and discharge for 12 to 24 hours after the object is removed. All of these problems generally improve spontaneously within 24 hours. CONJUNCTIVITIS TREATMENT The treatment of conjunctivitis depends upon the cause. For this reason, it is important to have the correct diagnosis before treatment begins. Viral conjunctivitis treatment ? A topical antihistamine/decongestant eye drop may help to relieve the itching and irritation of viral conjunctivitis. These drops are available without a prescription in most pharmacies. However, particular care must be taken to avoid spreading viral infections from one eye to the other ? apply drops only to affected eye and wash hands thoroughly after application. Similar to cold medicines, this treatment may reduce the symptoms but does not shorten the course of the infection. Another option is to use warm or cool compresses, as needed. The irritation and discharge may get worse for three to five days before getting better, and symptoms can persist for two to three weeks. Bacterial conjunctivitis treatment ? Bacterial conjunctivitis is usually treated with an antibiotic eye drop or ointment. When started early, treatment helps to shorten the duration of symptoms, although most cases do resolve spontaneously if no treatment is used. Adults ? Adults are usually treated with an antibiotic eye drop or ointment for five to seven days. Redness, irritation, and eye discharge should begin to improve within 24 to 48 hours. If there is no improvement or if the condition worsens within this time, the person should be evaluated by an farmworker fur. Contact lens wearers ? People who wear contact lenses should be evaluated by a healthcare provider before treatment begins; this is to confirm the diagnosis of conjunctivitis and to be sure that another, more serious condition related to contact lens use (an infection of the cornea), is not present. People who wear contact lenses should avoid wearing the lenses during the first 24 hours of treatment, or until the eye is no longer red. The contact case should be thrown away and the contacts disinfected overnight or replaced (if disposable). Return to work/school ? The safest approach to avoid spreading viral and bacterial conjunctivitis to others is to stay home until there is no longer any discharge from the eye(s). However, this is not practical for most students and for those who work outside the home. Most daycare centers and schools require that students receive 24 hours of eye drops or ointment before returning to school. This treatment helps to prevent the spread of bacterial conjunctivitis, but is not necessary or helpful for children with viral conjunctivitis. Viral conjunctivitis is similar to a cold because it spreads easily between people. Younger children, who may not remember to wash their hands or avoid touching their eyes, should probably not attend school until the discharge has resolved. Older students or adults may choose to attend school/work, although they should limit close contact with others. In addition, adults who have contact with the very old, the very young, and people with a weakened immune system should limit contact with these susceptible individuals. Non-specific conjunctivitis treatment ? The conjunctiva heals quickly after it is injured, and non-specific conjunctivitis usually resolves within a few days without any treatment. However, the eye may feel better faster when it is treated with a lubricant, such as drops or ointments. These products are available without a prescription in most pharmacies. Preservative-free preparations are more expensive and are necessary only for people with a severe case of dry eye and those who are allergic to preservatives. Lubricant drops can be used as often as hourly with no side effects. The ointment provides longer lasting relief but blurs vision temporarily. For this reason, some people use ointment only at bedtime. It may be worthwhile to switch brands if one brand of drop or ointment is irritating, since each preparation contains different active and inactive ingredients and preservatives. Antibiotic or steroid eye drops/ointments are not recommended unless there is a specific reason they are needed (eg, a bacterial infection or inflammatory condition). Using these treatments when they are not needed can lead to serious complications. If the symptoms of conjunctivitis do not improve within two weeks, an examination with an farmworker fur may be recommended. CONJUNCTIVITIS PREVENTION Bacterial and viral conjunctivitis are both highly contagious and spread by direct contact with secretions or contact with contaminated objects. Simple hygiene measures can help minimize transmission to others. ? Adults or children with bacterial or viral conjunctivitis should not share handkerchiefs, tissues, towels, cosmetics, or bed sheets/pillows with uninfected family or friends. ? Hand washing is an essential and highly effective way to prevent the spread of infection. Hands should be wet with water and plain soap, and rubbed together for 15 to 30 seconds. It is not necessary to use antibacterial hand soap. Teach children to wash their hands before and after eating and after touching the eyes, coughing, or sneezing. ? Alcohol-based hand rubs are a good alternative for disinfecting hands if a sink is not available. Hand rubs should be spread over the entire surface of hands, fingers, and wrists until dry, and may be used several times. These rubs can be used repeatedly without skin irritation or loss of effectiveness. Courtney Carvajal APRN.WORT EXTRACTOR 06/28/2018 12:29 PM Signed Subjective HPI HPI Shakira Ramos is a 22 year old female who presents today for CC of left eye redness, drainage. This started 2 days ago. Has tried nothing for relief. Symptoms are worsened by nothing. 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 .Patient presents with: Conjunctivitis No past medical history on file. No past surgical history on file. ALLERGIES Patient has no known allergies. MEDICATIONS erythromycin ophthalmic ointment Use 1 application in both eyes three times daily for 7 days. albuterol HFA (PROAIR HFA) 90 mcg/actuation inhaler Inhale 2 Puffs as instructed every 4 hours as needed. Norethindrone Acet-Ethinyl Est (JUNE,) 1.5-30 mg-mcg tab Take by mouth. No family history on file. Social History Substance Use Topics - Smoking status: Never Smoker - Smokeless tobacco: Never Used - Alcohol use Not on file Review of Systems Constitutional: Negative for chills and fever. HENT: Positive for congestion. Negative for ear discharge, ear pain and sore throat. Eyes: Positive for discharge and redness. Negative for blurred vision, double vision, photophobia and pain. Neurological: Negative for headaches. Objective Blood pressure 118/78, pulse 84, temperature 36.7 ?C (98.1 ?F), temperature source Tympanic, resp. rate 14, weight 115.8 kg (255 lb 6.4 oz). Physical Exam Constitutional: She is oriented to person, place, and time and well-developed, well-nourished, and in no distress. Vital signs are normal. Non-toxic appearance. She does not have a sickly appearance. No distress. HENT: Right Ear: Hearing, tympanic membrane and external ear normal. Left Ear: Hearing, tympanic membrane, external ear and ear canal normal. Nose: No mucosal edema or sinus tenderness. Mouth/Throat: Uvula is midline, oropharynx is clear and moist and mucous membranes are normal. Eyes: Right eye exhibits discharge. Left eye exhibits discharge (left > right). Right conjunctiva is injected. Left conjunctiva is injected. Lymphadenopathy: Right cervical: No superficial cervical adenopathy present. Left cervical: No superficial cervical adenopathy present. No cervical lymphadenopathy bilaterally Neurological: She is oriented to person, place, and time. ASSESSMENT/PLAN: 1. Bacterial conjunctivitis - ICD9: 372.39, 041.9, ICD10: H10.9 Bacterial - see medication orders - course and contagiousness issues discussed, including hand washing. - Instructed to call if high fever, development of periorbital redness or swelling, eye pain, visual changes, concerns or if symptoms persist. - ERYTHROMYCIN 5 MG/GRAM (0.5 %) EYE OINTMENT Prescription instructions reviewed with patient as applicable. Patient advised if symptoms do not improve or if symptoms worsen sooner, to contact the office for further evaluation by their primary care physician. Potential red flag symptoms discussed with the patient. Reviewed appropriate action plan to take if red flag symptoms occur. Patient agreeable to treatment plan. Courtney Carvajal APRN.TAMIKO Referring Provider: SELF [[id number]] Allergies As of Date: 06/28/2018 (No Known Allergies) Date Reviewed: 06/28/2018 Reviewed by: Courtney (Tamiko) - Fully Assessed Reason for Visit: Conjunctivitis [24] Primary Visit Diagnosis:Bacterial conjunctivitis [H10.9] Order(s):erythromycin ophthalmic ointmentUse 1 application in both eyes three times daily for 7 days.Disp: 1 TubeRfl: 0 Prescriptions as of 06/28/2018 Sig: ERYTHROMYCIN 5 MG/GRAM (0.5 %* Use 1 application in both eye* ALBUTEROL SULFATE HFA 90 MCG/* Inhale 2 Puffs as instructed * NORETHINDRONE ACETATE-ETHINYL* Take by mouth. Problem List As Of Date: 06/28/2018 (None) Other instructions from your clinician: [facility] PATIENT INFO CONJUNCTIVITIS OVERVIEW Conjunctivitis, also called pinkeye, is defined as an inflammation of the conjunctiva. The conjunctiva is the thin membrane that lines the inner surface of the eyelids and the whites of the eyes (called the sclera). Conjunctivitis can affect children and adults. The most common symptoms of conjunctivitis include a red eye and discharge. There are many potential causes of conjunctivitis, including bacterial or viral infections, allergies, or a non-specific condition (eg, a foreign body in the eye). All types of conjunctivitis cause a red eye, although not everyone with a red eye has conjunctivitis. TYPES OF CONJUNCTIVITIS There are four main types of conjunctivitis: bacterial, viral, allergic, and non-specific. Most cases of infectious conjunctivitis are viral in adults and children; however, bacterial conjunctivitis is more common in children than in adults. Viral conjunctivitis ? Viral conjunctivitis is typically caused by a virus that can also cause the common cold. A person may have symptoms of conjunctivitis alone, or as part of a general cold syndrome, with swollen lymph nodes (glands), fever, a sore throat, and runny nose. Viral conjunctivitis is highly contagious. It is spread by contact, usually with objects which have come into contact with the infected person's eye secretions. As examples, the virus can be transmitted when an infected person touches their eye and then touches another surface (eg, door handle) or shares an object that has touched their eye (eg, a towel or pillow case). The most common symptoms of viral conjunctivitis include redness, watery or mucus discharge, and a burning, radha, or gritty feeling in one eye. Some people have morning crusting followed by watery discharge, perhaps with some scant mucus discharge throughout the day. The second eye usually becomes infected within 24 to 48 hours. There is no cure for viral conjunctivitis. Recovery can begin within days, although the symptoms frequently get worse for the first three to five days, with gradual improvement over the following one to two weeks for a total course of two to three weeks. Some people experience morning crusting that continues for up to two weeks after the initial symptoms, although the daytime redness, irritation, and tearing should be much improved. Bacterial conjunctivitis ? Bacterial conjunctivitis is highly contagious, often affecting multiple family members or children within a classroom. Bacterial conjunctivitis is spread by contact, usually with objects which have come into contact with the infected person's eye secretions. As examples, the virus can be transmitted when an infected person touches their eye and then touches another surface (eg, door handle) or shares an object that has touched their eye (eg, a towel or pillow case). The most common symptoms of bacterial conjunctivitis include redness and thick discharge from one eye, although both eyes can become infected. The discharge may be yellow, white, or green, and it usually continues to drain throughout the day. The affected eye often is stuck shut in the morning. Most types of bacterial conjunctivitis resolve quickly and cause no permanent damage when treated with antibiotic eye drops or ointment Non-specific conjunctivitis ? It is possible to develop a red eye and discharge that is not caused by an infection or allergy. The most common causes include one of the following. ? People with a dry eye may have chronic or intermittent redness or discharge. A person whose eyes are irrigated after a chemical splash may have redness and discharge. ? A person with a foreign body (eg, dust, eyelash) in the eye may have redness and discharge for 12 to 24 hours after the object is removed. All of these problems generally improve spontaneously within 24 hours. CONJUNCTIVITIS TREATMENT The treatment of conjunctivitis depends upon the cause. For this reason, it is important to have the correct diagnosis before treatment begins. Viral conjunctivitis treatment ? A topical antihistamine/decongestant eye drop may help to relieve the itching and irritation of viral conjunctivitis. These drops are available without a prescription in most pharmacies. However, particular care must be taken to avoid spreading viral infections from one eye to the other ? apply drops only to affected eye and wash hands thoroughly after application. Similar to cold medicines, this treatment may reduce the symptoms but does not shorten the course of the infection. Another option is to use warm or cool compresses, as needed. The irritation and discharge may get worse for three to five days before getting better, and symptoms can persist for two to three weeks. Bacterial conjunctivitis treatment ? Bacterial conjunctivitis is usually treated with an antibiotic eye drop or ointment. When started early, treatment helps to shorten the duration of symptoms, although most cases do resolve spontaneously if no treatment is used. Adults ? Adults are usually treated with an antibiotic eye drop or ointment for five to seven days. Redness, irritation, and eye discharge should begin to improve within 24 to 48 hours. If there is no improvement or if the condition worsens within this time, the person should be evaluated by an farmworker fur. Contact lens wearers ? People who wear contact lenses should be evaluated by a healthcare provider before treatment begins; this is to confirm the diagnosis of conjunctivitis and to be sure that another, more serious condition related to contact lens use (an infection of the cornea), is not present. People who wear contact lenses should avoid wearing the lenses during the first 24 hours of treatment, or until the eye is no longer red. The contact case should be thrown away and the contacts disinfected overnight or replaced (if disposable). Return to work/school ? The safest approach to avoid spreading viral and bacterial conjunctivitis to others is to stay home until there is no longer any discharge from the eye(s). However, this is not practical for most students and for those who work outside the home. Most daycare centers and schools require that students receive 24 hours of eye drops or ointment before returning to school. This treatment helps to prevent the spread of bacterial conjunctivitis, but is not necessary or helpful for children with viral conjunctivitis. Viral conjunctivitis is similar to a cold because it spreads easily between people. Younger children, who may not remember to wash their hands or avoid touching their eyes, should probably not attend school until the discharge has resolved. Older students or adults may choose to attend school/work, although they should limit close contact with others. In addition, adults who have contact with the very old, the very young, and people with a weakened immune system should limit contact with these susceptible individuals. Non-specific conjunctivitis treatment ? The conjunctiva heals quickly after it is injured, and non-specific conjunctivitis usually resolves within a few days without any treatment. However, the eye may feel better faster when it is treated with a lubricant, such as drops or ointments. These products are available without a prescription in most pharmacies. Preservative-free preparations are more expensive and are necessary only for people with a severe case of dry eye and those who are allergic to preservatives. Lubricant drops can be used as often as hourly with no side effects. The ointment provides longer lasting relief but blurs vision temporarily. For this reason, some people use ointment only at bedtime. It may be worthwhile to switch brands if one brand of drop or ointment is irritating, since each preparation contains different active and inactive ingredients and preservatives. Antibiotic or steroid eye drops/ointments are not recommended unless there is a specific reason they are needed (eg, a bacterial infection or inflammatory condition). Using these treatments when they are not needed can lead to serious complications. If the symptoms of conjunctivitis do not improve within two weeks, an examination with an farmworker fur may be recommended. CONJUNCTIVITIS PREVENTION Bacterial and viral conjunctivitis are both highly contagious and spread by direct contact with secretions or contact with contaminated objects. Simple hygiene measures can help minimize transmission to others. ? Adults or children with bacterial or viral conjunctivitis should not share handkerchiefs, tissues, towels, cosmetics, or bed sheets/pillows with uninfected family or friends. ? Hand washing is an essential and highly effective way to prevent the spread of infection. Hands should be wet with water and plain soap, and rubbed together for 15 to 30 seconds. It is not necessary to use antibacterial hand soap. Teach children to wash their hands before and after eating and after touching the eyes, coughing, or sneezing. ? Alcohol-based hand rubs are a good alternative for disinfecting hands if a sink is not available. Hand rubs should be spread over the entire surface of hands, fingers, and wrists until dry, and may be used several times. These rubs can be used repeatedly without skin irritation or loss of effectiveness. Prescriptions ordered this encounter Disp Refills Start End ERYTHROMYCIN 5 MG/GRAM (0.5 %) EYE O* 1 Tu* 0 06/28/2018 06/28/2018 Route: BOTH EYES Sig: Use 1 application in both eyes three times daily for 7 days. ERYTHROMYCIN 5 MG/GRAM (0.5 %) EYE O* 1 Tu* 0 06/28/2018 07/05/2018 Route: BOTH EYES Sig: Use 1 application in both eyes three times daily for 7 days. Medications Discontinued During This Encounter erythromycin ophthalmic ointment 1 Tu* 0 06/28/2018 06/28/2018 Route: BOTH EYES Sig: Use 1 application in both eyes three times daily for 7 days. Disc: Reason for discontinue is not on file. Letter Text [place] [facility] Courtney Carvajal CNP [address], [place] [address] 06/28/2018 Shakira Ramos [facility]# [id number] [facility] [id number] TO WHOM IT MAY CONCERN: This is to confirm that Shakira Ramos had an appointment and was seen at the [facility] in the Department of Urgent Care by Courtney Carvajal CNP on 06/28/2018. May return to work 24 hours after starting medication. Sincerely yours, Courtney Carvajal CNP Encounter Status:Closed by COURTNEY CARVAJAL CNP on 06/28/18 URINALYSIS, COMPLETE Collected: 06/26/2018 Status: F Source: [place]OM 12:45 PM [facility] REPOSITORY Order Comment: How was Urine Obtained? PLASTER WHITTLER TO SPECIFY TYPE CODE TESTS RESULT OUT OF RANGE REFERENCE UNITS LAB L400.3000 Yellow COLOR Normal Straw LAB L400.3050 Clear Normal CLARITY Sl. Cloudy LAB L400.3200 Normal mg/dl Normal GLUCOSE, UR Normal LAB L400.3300 Negative mg/dL Normal BILIRUBIN URINE Negative LAB L400.3400 Negative mg/dl Normal KETONE UR Negative LAB L400.3465 1.002-1.030 Normal SP.GR. DIPSTX 1.010 LAB L400.3550 5.0 - 8.0 pH UR Normal 7.0 LAB L400.3600 Negative mg/dl PROT Normal DIPSTX Negative LAB L400.3700 Normal mg/dl Normal UROBILI Normal LAB L400.3750 Negative Normal NITRITE UR Negative LAB L400.3780 Negative /ul Normal OCCULT BLOOD-UR Negative LAB L400.3800 Negative /ul High LEUK ESTERASE 100 LAB L400.4050 0-5 /hpf WBC 0 Normal SEEN LAB L400.4100 0-5 /hpf 0 Normal RBC-UA SEEN LAB L400.4150 5-10 /hpf SQUAM Normal EPI 10-25 SEEN LAB L400.4300 None Seen /hpf 0 Normal BACTERIA SEEN LAB L400.4350 <or=2+ /hpf 0 Normal MUCUS, URINE SEEN Performed By: #### L400.0001 #### [facility] [address] [place], [place], [address] Observed: 06/26/2018 Status: F Source: DAVID CULTURE, URINE 12:45 PM [facility] REPOSITORY Urine Culture Below infection level. ORGANISM 1: Mixed Gram Positive Organisms Campus Count 1000-10,000 Performed By: #### M100.0650 #### [facility] [address] [facility] [place], [place], [address] (ROM) RUPTURE OF Collected: 06/26/2018 Status: F Source: DAVID MEMBRANES 12:05 PM [facility] REPOSITORY TYPE CODE TESTS RESULT OUT OF RANGE REFERENCE UNITS LAB L205.1310 Negative Normal ROM Negative Result Comment: Amniotic fluid not present indicates No Rupture of Membranes at time of specimen collection. Performed By: #### L205.1000 #### [facility] [facility]. [place], [place], [address] GROUP B STREP DNA Collected: 06/22/2018 Status: F Source: DAVID BY PCR 2:28 PM [facility] REPOSITORY Order Comment: Source: Vaginal-Rectal TYPE CODE TESTS RESULT OUT OF REFERENCE UNITS RANGE LAB L8200.0100 Negative High GBS TEST POSITIVE RESULT Result Comment: Penicillin is the recommended antibiotic for the treatment of Group B Streptococcal disease. In case of penicillin allergy, susceptibility testing for Clindamycin and Erythromycin is suggested by request. Performed By: #### L8200.0000 #### [facility] [address] [facility] [place], [place], [address] CBC-COMPLETE BLOOD CNT Collected: 06/22/2018 Status: F Source: DAVID NO DIFF 12:00 PM [facility] REPOSITORY TYPE CODE TESTS RESULT OUT OF RANGE REFERENCE UNITS LAB L100.1000 4.4-11.0 K/mm3 Normal WBC 9.3 LAB L100.1200 4.2-5.4 M/mm3 Normal RBC 4.38 LAB L100.1300 12.0-15.0 g/dl Low HGB 11.7 LAB L100.1400 37-47 % Low HCT 35.2 LAB L100.1500 81-99 fL Low MCV 80.4 LAB L100.1600 27.0-32.0 pg Low MCH 26.7 LAB L100.1700 32-36 g/gl Normal MCHC 33.2 LAB L100.1810 11.6-14.6 % Normal RDW CV 14.6 LAB L100.1820 35.1-43.9 fl Normal RDW SD 41.6 LAB L100.1900 150-450 K/mm3 Normal PLT 242 LAB L100.2000 6.2-12.0 fl Normal MPV 10.1 Performed By: #### L100.0500 #### [facility] [address] [place], [place], [id number] SERUM CREATININE AND Collected: 06/22/2018 Status: F Source: [place] GFR 12:00 PM [facility] REPOSITORY TYPE CODE TESTS RESULT OUT OF RANGE REFERENCE UNITS LAB L501.1100 0.55-1.02 mg/dL Normal 0.58 CREAT,SERUM Result Comment: The validity of the calculated GFR AND GFRAA in patients over 70 years has not been determined. Clinical correlation is essential. LAB L501.1110 >60 mL/min Normal EST GFR 139 Result Comment: Non- GFR Calc LAB L501.1115 >60 mL/min Normal EST GFR - AA 169 Result Comment: GFR Calc LAB L501.1255 ml/min Normal Estimated CRCL 154.78 Performed By: #### L501.1105, L501.1400, L501.4100, L501.4405, L300.3900, L300.4310 #### [facility] [address] [place], [address] URIC ACID Collected: 06/22/2018 Status: F Source: [place] 12:00 PM [facility] REPOSITORY TYPE CODE TESTS RESULT OUT OF RANGE REFERENCE UNITS LAB L501.1400 2.6-6.0 mg/dL Normal URIC 3.5 Result Comment: The drugs N-Acetylcysteine and Metamizole may falsely depress this assay. Performed By: #### L501.1105, L501.1400, L501.4100, L501.4405, L300.3900, L300.4310 #### [facility] [address] [place], [address] AST(SGOT) Collected: 06/22/2018 Status: F Source: [place] 12:00 PM [facility] REPOSITORY TYPE CODE TESTS RESULT OUT OF RANGE REFERENCE UNITS LAB L501.4100 15-37 U/L Low AST 10 Performed By: #### L501.1105, L501.1400, L501.4100, L501.4405, L300.3900, L300.4310 #### [facility] [address] [facility] [place], [place], [id number] ALANINE AMINOTRANSFERAS Collected: 06/22/2018 Status: F Source: [place] (SGPT) 12:00 PM [facility] REPOSITORY TYPE CODE TESTS RESULT OUT OF RANGE REFERENCE UNITS LAB L501.4405 13-56 U/L Low ALT 12 Performed By: #### L501.1105, L501.1400, L501.4100, L501.4405, L300.3900, L300.4310 #### [facility] [address] [facility] [place], [place], [id number] PROTHROMBIN TIME W/INR Collected: 06/22/2018 Status: F Source: [place] 12:00 PM [facility] REPOSITORY TYPE CODE TESTS RESULT OUT OF RANGE REFERENCE UNITS LAB L300.4150 11.7-14.9 SECONDS Normal PROTIME 13.5 LAB L300.4200 Normal INR 1.0 Performed By: #### L501.1105, L501.1400, L501.4100, L501.4405, L300.3900, L300.4310 #### [facility] [address] [facility] [place], [place], [id number] PARTIAL THROMBOPLAST Collected: 06/22/2018 Status: F Source: [place] TIME 12:00 PM [facility] REPOSITORY TYPE CODE TESTS RESULT OUT OF RANGE REFERENCE UNITS LAB L300.4310 24.1-36.2 Seconds Normal PTT 24.3 Performed By: #### L501.1105, L501.1400, L501.4100, L501.4405, L300.3900, L300.4310 #### [facility] [address] [place], [address] PROTEIN+CREATININE Collected: Status: F Source: DAVID RATIO,URINE 06/22/2018 11:50 AM [facility] REPOSITORY TYPE CODE TESTS RESULT OUT OF RANGE REFERENCE UNITS LAB L501.1200 NO RANGE EST. mg/dL Normal UR CREAT 90.80 LAB L501.1930 <11.9 mg/dL High 13.0 PROTEIN,UR.R AN. LAB L501.1940 0-200 mg/g CRE Normal PROT:CRE 143 RATIO Performed By: #### L501.0900 #### [facility] [address] [place], [address] HISTOLOGIC AIDE OFFICE VISIT Observed: 06/22/2018 Status: F Source: DAVID REPORT 11:33 AM [facility] REPOSITORY [facility] [place] [address] [place] [address] OFFICE VISIT Date of Service: 06/22/18 MR#: [id number] Acct: [id number] Name: SHAKIRA RAMOS Rep #: [id number] : 1995 Provider: Gricel Modi MD Age/Sex: 22/F Location: 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 Required: No Is patient in pain?: No Allergies No Known Allergies Allergy (Verified 06/22/18 10:52) Medications vitamin,calcium,dfelrhha-uijl-tctbh acid tablet 1 tab PO DAILY 02/16/18 [History Confirmed 06/22/18] Last Menstral Period: 09/22/17 Zika: Zika virus screening: Negative : No PFSH PFSH Medical History Asthma (Chronic) PCOS (polycystic ovarian syndrome) (Inactive) Social History Smoking Status: Former smoker alcohol intake: never substance use type: does not use caffeine: Yes what type of physical activity do you participate in: none seatbelt use: always do you feel safe at home: Yes 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: Nqbxkriki-Rapawgy-Neavwba 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 unable to give urine specimen for 2 dip OB Visit LORETTA Calculator Estimated Delivery Date 07/14/18 Based on Ultrasound Date 11/27/17 Current WG 36w 6d Number 1 Expected Delivery Route/Plan Specific Issue/Plans flu vaccine: given tdap vaccine: given rhogam: NA LARC form signed: declines labor support person: Octavio pain management: epidural cut cord/dad catch: yes : yes PP control planned: considering IUD special requests: [] Initial Weight: 241 lb Date Weight BP Urine PrFHR FuHt Pres MoCTX DilationFetal StVisit NoProviderComments E ot v te GA G Effac lucose ed Visit Notes Visit Date: 06/22/18 eelvated bp- recommend triage evaluation, nst, and blood work Gricel Modi MD on 06/22/18 no vb lof decr fm irregular ctx. Gricel Modi MD on 06/22/18 Visit Date: 06/08/18 no vb lof good fm n oregular ctx Gricel Modi MD on 06/08/18 Visit Date: 06/04/18 no vb lof good fm no regular ctx Gricel Modi MD on 06/04/18 Visit Date: 05/25/18 no vb lof good fm oregular ctx. has PUPPS rash Gricel Modi MD on 05/25/18 Visit Date: 05/18/18 no vb lof good fm no regualr ctx Gricel Modi MD on 05/18/18 Visit Date: 05/04/18 NO VB, LOF, Doing well LEON Ambrose on 05/04/18 Visit Date: 04/16/18 no vb lof good fm no regular ctx Gricel Modi MD on 04/16/18 Visit Date: 04/06/18 no vb lof good fm no regular ctx. Gricel Modi MD on 04/06/18 Visit Date: 03/09/18 no vb lof some fm. normal anatomy scan Gricel Modi MD on 03/14/18 Visit Date: 02/16/18 no vb cramping reschedule anatomy scan Gricel Modi MD on 02/16/18 Visit Date: 01/12/18 no vb crmaping less nausea doing well Gricel Modi MD on 01/14/18 Visit Date: 12/15/17 no vb cramping. has had decreased appetite.. Gricel Modi MD on 12/15/17 Visit Date: 11/18/17 No visit notes to display ACOG First Trimester First Trimester: Desire for , Alcohol, Tobacco Cessation, Illicit/Recreational Drug/Substance Use, Intimate Partner Violence, Barriers to care, Unstable Housing, Communication Barriers, Environmental/Work Hazards, Anticipated Course of Care, Toxoplasmosis Precations, Use of Any medications, Sexual activity, Exercise, Dental Care, Sauna/Hot tub use, Seat Belt use, Childbirth classes/Hospital facilities, , Travel, Indications for US and Screening for Aneuploidy Diagnostics Diagnostics Labs Hct 33.1 % (37-47) L 04/16/18 Hgb 11.1 g/dl (12.0-15.0) L 04/16/18 Obstetrics Ultrasound 02/27/18 Glucose 1 Hr 50 gm 112 mg/dL (70-140) 04/16/18 Miscellaneous Test 03/09/18 Details: HIV: Urine Culture: Sequential Screen: NIPT Screen: ROS Const Denies fever(s) GI Denies abdominal pain, Reports as per HPI Denies vaginal discharge, Denies abnormal vaginal bleeding, Reports as per HPI Exam Const General: healthy appearing, comfortable, no acute distress GI Inspection: normal to inspection Palpation: soft, nontender Assessment AND Plan Problems 1. Mild intermittent asthma without complication J45.20 no inhaler needed 2. ASCUS of cervix with negative high risk HPV R87.610 pap due 11/2018 3. 34 weeks gestation of Z3A.34 genetic, carrier, screening declined. anatomy scan WNL.Negative AFP screening 4. PUPP (pruritic urticarial papules and plaques of ) O26.86 supportive care 5. Encounter for supervision of normal first in third trimester Z34.03 PRR LORETTA 07/14/18 boy August boyfriend Octavio 6. Elevated blood pressure affecting in third trimester, antepartum O16.3 Plan movement and labor precautions reviewed. ACOG trimester education reviewed and updated. see problem list details for updated plan management information and see below for orders placed at this visit. [place] appropriate handout given. Orders Orders: Coding Level of Care Code Off vis,est,level 3 Diagnoses Mild intermittent asthma without complication J45.20 Asthma severity: mild Asthma persistence: intermittent Asthma complication type: uncomplicated ASCUS of cervix with negative high risk HPV R87.610 34 weeks gestation of Z3A.34 Weeks of gestation: 34 weeks PUPP (pruritic urticarial papules and plaques of ) O26.86 Encounter for supervision of normal first in third trimester Z34.03 Normal : normal first Trimester: third trimester Elevated blood pressure affecting in third trimester, antepartum O16.3 06/22/18 1133 <Electronically signed by Gricel Modi MD> Date Gricel Modi MD Cosigner Signature: Date (if applicable) CC: HISTOLOGIC AIDE OFFICE VISIT Observed: 06/08/2018 Status: F Source: DAVID REPORT 1:19 PM [facility] REPOSITORY [facility] [address] [place], [place] [address]mar[address]. [address] [place] [address] OFFICE VISIT Date of Service: 06/08/18 MR#: [id number] Acct: [id number] Name: SHAKIRA RAMOS Rosemary Rep #: [id number] : 1995 Provider: Gricel Modi MD Age/Sex: 22/F Location: [facility] Status: Signed Intake Vital Signs06/08/18 Body Mass Index (BMI) 37.3 06/08/18 Height 5 ft 8 in 06/08/18 Weight: 254 lb 8 oz 06/08/18 Body Mass Index (BMI) 38.7 06/08/18 Blood Pressure 112/76 Intake Visit Reasons: 39 WEEK OB Chief Complaint: Est OB Accompanied by: Significant Other Is patient in pain?: No Allergies No Known Allergies Allergy (Verified 06/08/18 12:56) Medications vitamin,calcium,qvuzsfwj-imyr-wwlwb acid tablet 1 tab PO DAILY 02/16/18 [History Confirmed 06/08/18] Last Menstral Period: 09/22/17 Zika: Zika virus screening: Negative : No PFSH PFSH Medical History Asthma (Chronic) PCOS (polycystic ovarian syndrome) (Inactive) Social History Smoking Status: Former smoker alcohol intake: never substance use type: does not use caffeine: Yes what type of physical activity do you participate in: none seatbelt use: always do you feel safe at home: Yes 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: Xppdpuzeb-Akhuftn-Lhrwaeb 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 OB Visit LORETTA Calculator Estimated Delivery Date 07/14/18 Based on Ultrasound Date 11/27/17 Current WG 34w 6d Number 1 Expected Delivery Route/Plan Specific Issue/Plans flu vaccine: given tdap vaccine: given rhogam: NA LARC form signed: declines labor support person: Octavio pain management: epidural cut cord/dad catch: yes : yes PP control planned: considering IUD special requests: [] Initial Weight: 241 lb Date Weight BP Urine PrFHR FuHt Pres MoCTX DilationFetal StVisit NoProviderComments E ot v te GA G Effac lucose ed Visit Notes Visit Date: 06/08/18 no vb lof good fm n oregular ctx Gricel Modi MD on 06/08/18 Visit Date: 06/04/18 no vb lof good fm no regular ctx Gricel Modi MD on 06/04/18 Visit Date: 05/25/18 no vb lof good fm oregular ctx. has PUPPS rash Gricel Modi MD on 05/25/18 Visit Date: 05/18/18 no vb lof good fm no regualr ctx Gricel Modi MD on 05/18/18 Visit Date: 05/04/18 NO VB, LOF, Doing well LEON Ambrose on 05/04/18 Visit Date: 04/16/18 no vb lof good fm no regular ctx Gricel Modi MD on 04/16/18 Visit Date: 04/06/18 no vb lof good fm no regular ctx. Gricel Modi MD on 04/06/18 Visit Date: 03/09/18 no vb lof some fm. normal anatomy scan Gricel Modi MD on 03/14/18 Visit Date: 02/16/18 no vb cramping reschedule anatomy scan Gricel Modi MD on 02/16/18 Visit Date: 01/12/18 no vb crmaping less nausea doing well Gricel Modi MD on 01/14/18 Visit Date: 12/15/17 no vb cramping. has had decreased appetite.. Gricel Modi MD on 12/15/17 Visit Date: 11/18/17 No visit notes to display ACOG First Trimester First Trimester: Desire for , Alcohol, Tobacco Cessation, Illicit/Recreational Drug/Substance Use, Intimate Partner Violence, Barriers to care, Unstable Housing, Communication Barriers, Environmental/Work Hazards, Anticipated Course of Care, Toxoplasmosis Precations, Use of Any medications, Sexual activity, Exercise, Dental Care, Sauna/Hot tub use, Seat Belt use, Childbirth classes/Hospital facilities, , Travel, Indications for US and Screening for Aneuploidy Diagnostics Diagnostics Labs Hct 33.1 % (37-47) L 04/16/18 Hgb 11.1 g/dl (12.0-15.0) L 04/16/18 Obstetrics Ultrasound 02/27/18 Glucose 1 Hr 50 gm 112 mg/dL (70-140) 04/16/18 Miscellaneous Test 03/09/18 Details: HIV: Urine Culture: Sequential Screen: NIPT Screen: ROS Const Denies fever(s) GI Denies abdominal pain, Reports as per HPI Denies vaginal discharge, Denies abnormal vaginal bleeding, Reports as per HPI Exam Const General: healthy appearing, comfortable, no acute distress GI Inspection: normal to inspection Palpation: soft, nontender Results [id number] Office Urine Glucose Negative Last Edit by Valeria Pagan on 06/08/18 13:00 Office Urine Protein Negative Last Edit by Valeria Pagan on 06/08/18 13:00 Assessment AND Plan Problems 1. Mild intermittent asthma without complication J45.20 no inhaler needed 2. ASCUS of cervix with negative high risk HPV R87.610 pap due 11/2018 3. 34 weeks gestation of Z3A.34 genetic, carrier, screening declined. anatomy scan WNL.Negative AFP screening 4. PUPP (pruritic urticarial papules and plaques of ) O26.86 supportive care 5. Encounter for supervision of normal first in third trimester Z34.03 PRR LORETTA 07/14/18 boy August boyfrienlaurent Cunningham Plan movement and labor precautions reviewed. ACOG trimester education reviewed and updated. see problem list details for updated plan management information and see below for orders placed at this visit. [place] appropriate handout given. Orders Orders: Coding Level of Care Code Off vis,est,level 3 Diagnoses Mild intermittent asthma without complication J45.20 Asthma severity: mild Asthma persistence: intermittent Asthma complication type: uncomplicated ASCUS of cervix with negative high risk HPV R87.610 34 weeks gestation of Z3A.34 Weeks of gestation: 34 weeks PUPP (pruritic urticarial papules and plaques of ) O26.86 Encounter for supervision of normal first in third trimester Z34.03 Normal : normal first Trimester: third trimester 06/08/18 1319 <Electronically signed by Gricel Modi MD> Date Gricel Modi MD Cosigner Signature: Date (if applicable) CC: HISTOLOGIC AIDE OFFICE VISIT Observed: 06/04/2018 Status: F Source: DAVID REPORT 4:35 PM [facility] REPOSITORY [facility] [address] [place] [address] OFFICE VISIT Date of Service: 06/04/18 MR#: [id number] Acct: [id number] Name: SHAKIRA RAMOS Rep #: [id number] : 1995 Provider: Gricel Modi MD Age/Sex: 22/F Location: [facility] [place] Status: Signed Intake Vital Signs06/04/18 Body Mass Index (BMI) 37.3 06/04/18 Height 5 ft 8 in 06/04/18 Weight: 253 lb 4 oz 06/04/18 Body Mass Index (BMI) 38.5 06/04/18 Blood Pressure 120/80 Intake Visit Reasons: 38 WEEK OB Utility Pipe Layer Required: No Is patient in pain?: No Allergies No Known Allergies Allergy (Verified 06/04/18 16:17) Medications vitamin,calcium,kiyzrhjj-htgt-jlpbd acid tablet 1 tab PO DAILY 02/16/18 [History Confirmed 06/04/18] Last Menstral Period: 09/22/17 Zika: Zika virus screening: Negative : No PFSH PFSH Medical History Asthma (Chronic) PCOS (polycystic ovarian syndrome) (Inactive) Social History Smoking Status: Former smoker alcohol intake: never substance use type: does not use caffeine: Yes what type of physical activity do you participate in: none seatbelt use: always do you feel safe at home: Yes 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: Fmretcvwd-Bpvshbr-Orzqvla 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 OB Visit LORETTA Calculator Estimated Delivery Date 07/14/18 Based on Ultrasound Date 11/27/17 Current WG 34w 2d Number 1 Expected Delivery Route/Plan Specific Issue/Plans flu vaccine: given tdap vaccine: given rhogam: NA LARC form signed: declines labor support person: Octavio pain management: epidural cut cord/dad catch: yes : yes PP control planned: considering IUD special requests: [] Initial Weight: 241 lb Date Weight BP Urine PFHR FuHt Pres MCTX DilatioFetal SVisit NProvideComment rot ov n t ote r s EGA Ef Gluco faced se 11/18/1240 lb 134/78 8 (+0 oz) 6w 0d Visit Notes Visit Date: 06/04/18 no vb lof good fm no regular ctx Gricel Modi MD on 06/04/18 Visit Date: 05/25/18 no vb lof good fm oregular ctx. has PUPPS rash Gricel Modi MD on 05/25/18 Visit Date: 05/18/18 no vb lof good fm no regualr ctx Gricel Modi MD on 05/18/18 Visit Date: 05/04/18 NO VB, LOF, Doing well Pratima Ulloa NP-Vanesa on 05/04/18 Visit Date: 04/16/18 no vb lof good fm no regular ctx Gricel Modi MD on 04/16/18 Visit Date: 04/06/18 no vb lof good fm no regular ctx. Gricel Modi MD on 04/06/18 Visit Date: 03/09/18 no vb lof some fm. normal anatomy scan Gricel Modi MD on 03/14/18 Visit Date: 02/16/18 no vb cramping reschedule anatomy scan Gricel Modi MD on 02/16/18 Visit Date: 01/12/18 no vb crmaping less nausea doing well Gricel Modi MD on 01/14/18 Visit Date: 12/15/17 no vb cramping. has had decreased appetite.. Gricel Modi MD on 12/15/17 Visit Date: 11/18/17 No visit notes to display ACOG First Trimester First Trimester: Desire for , Alcohol, Tobacco Cessation, Illicit/Recreational Drug/Substance Use, Intimate Partner Violence, Barriers to care, Unstable Housing, Communication Barriers, Environmental/Work Hazards, Anticipated Course of Care, Toxoplasmosis Precations, Use of Any medications, Sexual activity, Exercise, Dental Care, Sauna/Hot tub use, Seat Belt use, Childbirth classes/Hospital facilities, , Travel, Indications for US and Screening for Aneuploidy Diagnostics Diagnostics Labs Hct 33.1 % (37-47) L 04/16/18 Hgb 11.1 g/dl (12.0-15.0) L 04/16/18 Obstetrics Ultrasound 02/27/18 Glucose 1 Hr 50 gm 112 mg/dL (70-140) 04/16/18 Miscellaneous Test 03/09/18 Details: HIV: Urine Culture: Sequential Screen: NIPT Screen: ROS Const Denies fever(s) GI Denies abdominal pain, Reports as per HPI Denies vaginal discharge, Denies abnormal vaginal bleeding, Reports as per HPI Exam Const General: healthy appearing, comfortable, no acute distress GI Inspection: normal to inspection Palpation: soft, nontender Results [id number] Office Urine Glucose Negative Last Edit by Jessica Pettit on 06/04/18 16:13 Office Urine Protein Negative Last Edit by Jessica Pettit on 06/04/18 16:13 Assessment AND Plan Problems 1. PUPP (pruritic urticarial papules and plaques of ) O26.86 supportive care 2. 34 weeks gestation of Z3A.34 genetic, carrier, screening declined. anatomy scan WNL.Negative AFP screening 3. ASCUS of cervix with negative high risk HPV R87.610 pap due 11/2018 4. Encounter for supervision of normal first in third trimester Z34.03 PRR LORETTA 07/14/18 boy August boyfriend Octavio 5. Mild intermittent asthma without complication J45.20 no inhaler needed Plan ACOG trimester education reviewed and updated. see problem list details for updated plan management information and see below for orders placed at this visit. [place] appropriate handout given. Orders Orders: Coding Level of Care Code Off vis,est,level 3 Diagnoses PUPP (pruritic urticarial papules and plaques of ) O26.86 34 weeks gestation of Z3A.34 Weeks of gestation: 34 weeks ASCUS of cervix with negative high risk HPV R87.610 Encounter for supervision of normal first in third trimester Z34.03 Normal : normal first Trimester: third trimester Mild intermittent asthma without complication J45.20 Asthma severity: mild Asthma persistence: intermittent Asthma complication type: uncomplicated 06/04/18 0883 <Electronically signed by Gricel Modi MD> Date Gricel Modi MD Cosign Signature: Date (if applicable) CC: HISTOLOGIC AIDE OFFICE VISIT Observed: 05/25/2018 Status: F Source: [place] [facility]OM REPORT 4:38 PM [facility] REPOSITORY [facility] [address] [place] [address]. [address] [place] [address] OFFICE VISIT Date of Service: 05/25/18 MR#: [id number] Acct: [id number] Name: SHAKIRA RAMOS Rep #: [id number] : 1995 Provider: Gricel Modi MD Age/Sex: 22/F Location: [facility] [place] Status: Signed Intake Vital Signs05/25/18 Body Mass Index (BMI) 37.3 05/25/18 Height 5 ft 8 in 05/25/18 Weight: 255 lb 05/25/18 Body Mass Index (BMI) 38.7 05/25/18 Blood Pressure 126/66 H Intake Visit Reasons: 37 WEEK OB Chief Complaint: est ob Utility Pipe Layer Required: No Is patient in pain?: No Allergies No Known Allergies Allergy (Verified 05/25/18 16:06) Medications vitamin,calcium,fjvoqjam-zatj-vpzcz acid tablet 1 tab PO DAILY 02/16/18 [History Confirmed 05/25/18] Last Menstral Period: 09/22/17 Zika: Zika virus screening: Negative : No PFSH PFSH Medical History Asthma (Chronic) PCOS (polycystic ovarian syndrome) (Inactive) Social History Smoking Status: Former smoker alcohol intake: never substance use type: does not use caffeine: Yes what type of physical activity do you participate in: none seatbelt use: always do you feel safe at home: Yes 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: Jabypetoc-Fupvfhm-Uuqegxl 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 OB Visit LORETTA Calculator Estimated Delivery Date 07/14/18 Based on Ultrasound Date 11/27/17 Current WG 32w 6d Number 1 Expected Delivery Route/Plan Specific Issue/Plans flu vaccine: given tdap vaccine: given rhogam: NA LARC form signed: declines labor support person: Octavio pain management: epidural cut cord/dad catch: yes : yes PP control planned: considering IUD special requests: [] Initial Weight: 241 lb Date Weight BP Urine PrFHR FuHt Pres MoCTX DilationFetal StVisit NoProviderComments E ot v te GA G Effac lucose ed Visit Notes Visit Date: 05/25/18 no vb lof good fm oregular ctx. has PUPPS rash Gricel Modi MD on 05/25/18 Visit Date: 05/18/18 no vb lof good fm no regualr ctx Gricel Modi MD on 05/18/18 Visit Date: 05/04/18 NO VB, LOF, Doing well LEON Ambrose on 05/04/18 Visit Date: 04/16/18 no vb lof good fm no regular ctx Gricel Modi MD on 04/16/18 Visit Date: 04/06/18 no vb lof good fm no regular ctx. Gricel Modi MD on 04/06/18 Visit Date: 03/09/18 no vb lof some fm. normal anatomy scan Gricel Modi MD on 03/14/18 Visit Date: 02/16/18 no vb cramping reschedule anatomy scan Gricel Modi MD on 02/16/18 Visit Date: 01/12/18 no vb crmaping less nausea doing well Gricel Modi MD on 01/14/18 Visit Date: 12/15/17 no vb cramping. has had decreased appetite.. Gricel Modi MD on 12/15/17 Visit Date: 11/18/17 No visit notes to display ACOG First Trimester First Trimester: Desire for , Alcohol, Tobacco Cessation, Illicit/Recreational Drug/Substance Use, Intimate Partner Violence, Barriers to care, Unstable Housing, Communication Barriers, Environmental/Work Hazards, Anticipated Course of Care, Toxoplasmosis Precations, Use of Any medications, Sexual activity, Exercise, Dental Care, Sauna/Hot tub use, Seat Belt use, Childbirth classes/Hospital facilities, , Travel, Indications for US and Screening for Aneuploidy Diagnostics Diagnostics Labs Blood Type A POSITIVE 11/18/17 Antibody Screen NEGATIVE 11/18/17 Hct 33.1 % (37-47) L 04/16/18 Hgb 11.1 g/dl (12.0-15.0) L 04/16/18 Obstetrics Ultrasound 02/27/18 Rubella IgG Antibody 12.8 IU/mL 11/18/17 RPR NONREACTIVE (NONREACTIVE) 11/18/17 Hep Bs Antigen Negative (Negative) 11/18/17 Chlam trachomat DNA PCR Negative (Negative) 11/18/17 N.gonorrhoeae DNA (PCR) Negative (Negative) 11/18/17 Glucose 1 Hr 50 gm 112 mg/dL (70-140) 04/16/18 Miscellaneous Test 03/09/18 Details: HIV: Urine Culture: Sequential Screen: NIPT Screen: ROS Const Denies fever(s) GI Denies abdominal pain, Reports as per HPI Denies vaginal discharge, Denies abnormal vaginal bleeding, Reports as per HPI Exam Const General: healthy appearing, comfortable, no acute distress GI Inspection: normal to inspection Palpation: soft, nontender Results [id number] Office Urine Glucose Negative Last Edit by Jammie Cuenca on 05/25/18 16:09 Office Urine Protein Negative Last Edit by Jammie Cuenca on 05/25/18 16:09 Assessment AND Plan Problems 1. Mild intermittent asthma without complication J45.20 no inhaler needed 2. ASCUS of cervix with negative high risk HPV R87.610 pap due 11/2018 3. 33 weeks gestation of Z3A.33 genetic, carrier, screening declined. anatomy scan WNL.Negative AFP screening 4. Encounter for supervision of normal first in third trimester Z34.03 PRR LORETTA 07/14/18 boy August boyfriend Octavio 5. PUPP (pruritic urticarial papules and plaques of ) O26.86 supportive care Plan movement and labor precautions reviewed. ACOG trimester education reviewed and updated. see problem list details for updated plan management information and see below for orders placed at this visit. [place] appropriate handout given. Orders Orders: Coding Level of Care Code OB Routine Diagnoses Mild intermittent asthma without complication J45.20 Asthma severity: mild Asthma persistence: intermittent Asthma complication type: uncomplicated ASCUS of cervix with negative high risk HPV R87.610 33 weeks gestation of Z3A.33 Weeks of gestation: 33 weeks Encounter for supervision of normal first in third trimester Z34.03 Normal : normal first Trimester: third trimester PUPP (pruritic urticarial papules and plaques of ) O26.86 05/25/18 1638 <Electronically signed by Gricel Modi MD> Date Gricel Modi MD Cosigner Signature: Date (if applicable) CC: HISTOLOGIC AIDE OFFICE VISIT Observed: 05/18/2018 Status: F Source: [facility] [facility]OM REPORT 4:40 PM [facility] REPOSITORY [facility] [address] [place] [address] OFFICE VISIT Date of Service: 05/18/18 MR#: [id number] Acct: [id number] Name: SHAKIRA RAMOS Rep #: [id number] : 1995 Provider: Gricel Modi MD Age/Sex: 22/F Location: [facility] Status: Signed Intake Vital Signs05/18/18 Body Mass Index (BMI) 37.3 05/18/18 Height 5 ft 8 in 05/18/18 Weight: 253 lb 4 oz 05/18/18 Body Mass Index (BMI) 38.5 05/18/18 Blood Pressure 118/78 Intake Visit Reasons: ob routine 36 weeks Utility Pipe Layer Required: No Is patient in pain?: No Allergies No Known Allergies Allergy (Verified 05/18/18 16:22) Medications vitamin,calcium,qsmzvkvz-qgwo-zlmdk acid tablet 1 tab PO DAILY 02/16/18 [History Confirmed 05/18/18] Last Menstral Period: 09/22/17 Zika: Zika virus screening: Negative : No PFSH PFSH Medical History Asthma (Chronic) PCOS (polycystic ovarian syndrome) (Inactive) Social History Smoking Status: Former smoker alcohol intake: never substance use type: does not use caffeine: Yes what type of physical activity do you participate in: none seatbelt use: always do you feel safe at home: Yes 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: Iyhailoot-Shqokzg-Imseupr 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 OB Visit LORETTA Calculator Estimated Delivery Date 07/14/18 Based on Ultrasound Date 11/27/17 Current WG 31w 6d Number 1 Expected Delivery Route/Plan Specific Issue/Plans flu vaccine: given tdap vaccine: given rhogam: NA LARC form signed: declines labor support person: Octavio pain management: epidural cut cord/dad catch: yes : yes PP control planned: considering IUD special requests: [] Initial Weight: 241 lb Date Weight BP Urine PrFHR FuHt Pres MoCTX DilationFetal StVisit NoProviderComments E ot v te GA G Effac lucose ed Visit Notes Visit Date: 05/18/18 no vb lof good fm no regualr ctx Gricel Modi MD on 05/18/18 Visit Date: 05/04/18 NO VB, LOF, Doing well LEON Ambrose on 05/04/18 Visit Date: 04/16/18 no vb lof good fm no regular ctx Gricel Modi MD on 04/16/18 Visit Date: 04/06/18 no vb lof good fm no regular ctx. Gricel Modi MD on 04/06/18 Visit Date: 03/09/18 no vb lof some fm. normal anatomy scan Gricel Modi MD on 03/14/18 Visit Date: 02/16/18 no vb cramping reschedule anatomy scan Gricel Modi MD on 02/16/18 Visit Date: 01/12/18 no vb crmaping less nausea doing well Gricel Modi MD on 01/14/18 Visit Date: 12/15/17 no vb cramping. has had decreased appetite.. Gricel Modi MD on 12/15/17 Visit Date: 11/18/17 No visit notes to display ACOG First Trimester First Trimester: Desire for , Alcohol, Tobacco Cessation, Illicit/Recreational Drug/Substance Use, Intimate Partner Violence, Barriers to care, Unstable Housing, Communication Barriers, Environmental/Work Hazards, Anticipated Course of Care, Toxoplasmosis Precations, Use of Any medications, Sexual activity, Exercise, Dental Care, Sauna/Hot tub use, Seat Belt use, Childbirth classes/Hospital facilities, , Travel, Indications for US and Screening for Aneuploidy Diagnostics Diagnostics Labs Blood Type A POSITIVE 11/18/17 Antibody Screen NEGATIVE 11/18/17 Hct 33.1 % (37-47) L 04/16/18 Hgb 11.1 g/dl (12.0-15.0) L 04/16/18 Obstetrics Ultrasound 02/27/18 Rubella IgG Antibody 12.8 IU/mL 11/18/17 RPR NONREACTIVE (NONREACTIVE) 11/18/17 Hep Bs Antigen Negative (Negative) 11/18/17 Chlam trachomat DNA PCR Negative (Negative) 11/18/17 N.gonorrhoeae DNA (PCR) Negative (Negative) 11/18/17 Glucose 1 Hr 50 gm 112 mg/dL (70-140) 04/16/18 Miscellaneous Test 03/09/18 Details: HIV: Urine Culture: Sequential Screen: NIPT Screen: ROS Const Denies fever(s) GI Denies abdominal pain, Reports as per HPI Denies vaginal discharge, Denies abnormal vaginal bleeding, Reports as per HPI Exam Const General: healthy appearing, comfortable, no acute distress GI Inspection: normal to inspection Palpation: soft, nontender Assessment AND Plan Problems 1. 31 weeks gestation of Z3A.31 genetic, carrier, screening declined. anatomy scan WNL.Negative AFP screening 2. ASCUS of cervix with negative high risk HPV R87.610 pap due 11/2018 3. Encounter for supervision of normal first in third trimester Z34.03 PRR LORETTA 07/14/18 boy August boyfriend Octavio 4. Mild intermittent asthma without complication J45.20 no inhaler needed Plan movement and labor precautions reviewed. ACOG trimester education reviewed and updated. see problem list details for updated plan management information and see below for orders placed at this visit. GA appropriate handout given. Orders Orders: Coding Level of Care Code Off vis,est,level 3 Diagnoses 31 weeks gestation of Z3A.31 Weeks of gestation: 31 weeks ASCUS of cervix with negative high risk HPV R87.610 Encounter for supervision of normal first in third trimester Z34.03 Normal : normal first Trimester: third trimester Mild intermittent asthma without complication J45.20 Asthma severity: mild Asthma persistence: intermittent Asthma complication type: uncomplicated 05/18/18 1640 <Electronically signed by Gricel Modi MD> Date Gricel Modi MD Cosigner Signature: Date (if applicable) CC: HISTOLOGIC AIDE OFFICE VISIT Observed: 05/04/2018 Status: F Source: [place] REPORT 4:[address] [facility] [address] [place] [address] OFFICE VISIT Date of Service: 05/04/18 MR#: [id number] Acct: [id number] Name: SHAKIRA RAMOS Rep #: [id number] : 1995 Provider: JUNIOR Ulloa Age/Sex: 22/F Location: [facility] Status: Signed Intake Vital Signs05/04/18 Body Mass Index (BMI) 37.3 05/04/18 Height 5 ft 8 in 05/04/18 Weight: 247 lb 05/04/18 Body Mass Index (BMI) 37.5 05/04/18 Blood Pressure 124/80 H Intake Visit Reasons: ob routine 34 weeks Utility Pipe Layer Required: No Is patient in pain?: No Allergies No Known Allergies Allergy (Verified 05/04/18 16:06) Medications vitamin,calcium,bxsysxlr-jpmc-ouijv acid tablet 1 tab PO DAILY 02/16/18 [History Confirmed 05/04/18] Last Menstral Period: 09/22/17 Zika: Zika virus screening: Negative : No PFSH PFSH Medical History Asthma (Chronic) PCOS (polycystic ovarian syndrome) (Inactive) Social History Smoking Status: Former smoker alcohol intake: never substance use type: does not use caffeine: Yes what type of physical activity do you participate in: none seatbelt use: always do you feel safe at home: Yes 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: Vlbnebjre-Lskmyce-Ylsjywb 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 OB Visit LORETTA Calculator Estimated Delivery Date 07/14/18 Based on Ultrasound Date 11/27/17 Current WG 29w 6d Number 1 Expected Delivery Route/Plan Specific Issue/Plans flu vaccine: given tdap vaccine: given rhogam: NA LARC form signed: declines labor support person: Octavio pain management: epidural cut cord/dad catch: yes : yes PP control planned: considering IUD special requests: [] Initial Weight: 241 lb Date Weight BP Urine PrFHR FuHt Pres MoCTX DilationFetal StVisit NoProviderComments E ot v te GA G Effac lucose ed Visit Notes Visit Date: 05/04/18 NO VB, LOF, Doing well LEON Ambrose on 05/04/18 Visit Date: 04/16/18 no vb lof good fm no regular ctx Gricel Modi MD on 04/16/18 Visit Date: 04/06/18 no vb lof good fm no regular ctx. Gricel Modi MD on 04/06/18 Visit Date: 03/09/18 no vb lof some fm. normal anatomy scan Gricel Modi MD on 03/14/18 Visit Date: 02/16/18 no vb cramping reschedule anatomy scan Gricel Modi MD on 02/16/18 Visit Date: 01/12/18 no vb crmaping less nausea doing well Gricel Modi MD on 01/14/18 Visit Date: 12/15/17 no vb cramping. has had decreased appetite.. Gricel Modi MD on 12/15/17 Visit Date: 11/18/17 No visit notes to display ACOG First Trimester First Trimester: Desire for , Alcohol, Tobacco Cessation, Illicit/Recreational Drug/Substance Use, Intimate Partner Violence, Barriers to care, Unstable Housing, Communication Barriers, Environmental/Work Hazards, Anticipated Course of Care, Toxoplasmosis Precations, Use of Any medications, Sexual activity, Exercise, Dental Care, Sauna/Hot tub use, Seat Belt use, Childbirth classes/Hospital facilities, , Travel, Indications for US and Screening for Aneuploidy Diagnostics Diagnostics Labs Blood Type A POSITIVE 11/18/17 Antibody Screen NEGATIVE 11/18/17 Hct 33.1 % (37-47) L 04/16/18 Hgb 11.1 g/dl (12.0-15.0) L 04/16/18 Obstetrics Ultrasound 02/27/18 Rubella IgG Antibody 12.8 IU/mL 11/18/17 RPR NONREACTIVE (NONREACTIVE) 11/18/17 Hep Bs Antigen Negative (Negative) 11/18/17 Chlam trachomat DNA PCR Negative (Negative) 11/18/17 N.gonorrhoeae DNA (PCR) Negative (Negative) 11/18/17 Glucose 1 Hr 50 gm 112 mg/dL (70-140) 04/16/18 Miscellaneous Test 03/09/18 Details: HIV: Urine Culture: Sequential Screen: NIPT Screen: ROS Const Reports system reviewed and no additional complaints, except as docu GI Denies nausea, Denies vomiting, Denies abdominal pain Exam Const General: cooperative Nutritional Appearance: well nourished GI Palpation: soft, nontender, other (gravid) Results [id number] Office Urine Glucose Negative Last Edit by Jessica Pettit on 05/04/18 16:04 Office Urine Protein Negative Last Edit by Jessica Pettit on 05/04/18 16:04 Assessment AND Plan Problems 1. Encounter for supervision of normal first in second trimester Z34.02 PRR LORETTA 07/14/18 boy August boyfriend Octavio 2. 29 weeks gestation of Z3A.29 genetic, carrier, screening declined. anatomy scan WNL.Negative AFP screening Plan Orders placed: none Reviewed of labor precautions, movement/kick counts ACOG trimester education reviewed and updated See problem list details for updated plan of care Gestational age appropriate handout given RTO: 2 weeks Orders Orders: Coding Level of Care Code Off vis,est,level 3 Diagnoses Encounter for supervision of normal first in second trimester Z34.02 Normal : normal first Trimester: second trimester 29 weeks gestation of Z3A.29 Weeks of gestation: 29 weeks 05/04/18 1623 <Electronically signed by Pratima QUINTERO> Date Pratima QUINTERO Cosigner Signature: Date (if applicable) CC: PROGRESS Observed: 04/23/2018 Status: COMPLETED Source: [place] 10:56 AM [facility] [place] REPOSITORY HNO ID: [id number] Author: Sina Pineda (Silvano Aponte Service: (none) Author Type: Nurse Practitioner Type: Progress Notes Filed: 04/23/2018 11:18 AM Note Text: Subjective HPI Patient presents with: Cough: x1 wk Nasal Congestion: x1 wk 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 Claritin otc with minimal relief. Review of Systems Constitutional: Negative for chills, fever and malaise/fatigue. HENT: Positive for congestion. Negative for ear pain and sore throat. Eyes: Negative for discharge and redness. Respiratory: Positive for cough (worse at night and am). Negative for hemoptysis, sputum production, shortness of breath and wheezing. Gastrointestinal: Negative for abdominal pain, diarrhea, nausea and vomiting. Skin: Negative for rash. Neurological: Negative for headaches. No past medical history on file. No past surgical history on file. ALLERGIES Patient has no known allergies. MEDICATIONS Hiqbwdhcmovivao-Uhjwlivuc-RY (BROMFED DM) 2-30-10 mg/5 mL syrup Take 10 mL by mouth four times daily as needed. Norethindrone Acet-Ethinyl Est (, ,) 1.5-30 mg-mcg tab Take by mouth. No family history on file. Social History Substance Use Topics - Smoking status: Never Smoker - Smokeless tobacco: Never Used - Alcohol use Not on file Objective Physical Exam Constitutional: She is well-developed, well-nourished, and in no distress. HENT: Head: Normocephalic. Right Ear: Tympanic membrane, external ear and ear canal normal. Left Ear: Tympanic membrane, external ear and ear canal normal. Nose: Rhinorrhea present. Right sinus exhibits no maxillary sinus tenderness and no frontal sinus tenderness. Left sinus exhibits no maxillary sinus tenderness and no frontal sinus tenderness. Mouth/Throat: Posterior oropharyngeal erythema (PND) present. Eyes: Conjunctivae are normal. Neck: Normal range of motion. Neck supple. Cardiovascular: Normal rate, regular rhythm and normal heart sounds. Pulmonary/Chest: Effort normal and breath sounds normal. No respiratory distress. She has no wheezes. Abdominal: Soft. She exhibits no distension. There is no tenderness. Lymphadenopathy: She has no cervical adenopathy. Skin: Skin is warm and dry. No rash noted. Nursing note and vitals reviewed. ASSESSMENT/PLAN: 1. Sinobronchitis - ICD9: 473.9, 490, ICD10: J32.9, J40 - Amoxil given, but with instructions to wait til >10 days and worsening symptoms. - Pt verbalized understanding. - The patient should also be given OTC decongestants prn, OTC cough and cold meds as needed, warm salt water gargles, throat lozenges and/or OTC throat spray as needed and nasal saline gtts and suction prn for the first 5-7 days of treatment. - Supportive care with plenty of fluids, rest, and analgesia prn. - Follow up in 3-5 days if symptoms persist or worsen. Prescription instructions reviewed with patient as applicable. Patient advised if symptoms do not improve or if symptoms worsen sooner, to contact their primary care physician. Potential red flag symptoms discussed with the patient. Reviewed appropriate action plan to take if red flag symptoms occur. Patient agreeable to treatment plan. Sina Aponte APRN.WORT EXTRACTOR CNOV Observed: 04/23/2018 Status: COMPLETED Source: [place] 10:45 AM [facility] RE[facility] SHAKIRA RAMOS ([id number]) 1995 F Date Time Provider Department 04/23/18 10:45 AM SINA APONTE (TELEVISION NEWS PRODUCER) 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 Review of Systems Constitutional: Negative for chills, fever and malaise/fatigue. HENT: Positive for congestion. Negative for ear pain and sore throat. Eyes: Negative for discharge and redness. Respiratory: Positive for cough (worse at night and am). Negative for hemoptysis, sputum production, shortness of breath and wheezing. Gastrointestinal: Negative for abdominal pain, diarrhea, nausea and vomiting. Skin: Negative for rash. Neurological: Negative for headaches. No past medical history on file. No past surgical history on file. ALLERGIES Patient has no known allergies. MEDICATIONS Biebpoupbuegura-Ouckfgnfr-VI (BROMFED DM) 2-30-10 mg/5 mL syrup Take 10 mL by mouth four times daily as needed. Norethindrone Acet-Ethinyl Est (,) 1.5-30 mg-mcg tab Take by mouth. No family history on file. Social History Substance Use Topics - Smoking status: Never Smoker - Smokeless tobacco: Never Used - Alcohol use Not on file Objective Physical Exam Constitutional: She is well-developed, well-nourished, and in no distress. HENT: Head: Normocephalic. Right Ear: Tympanic membrane, external ear and ear canal normal. Left Ear: Tympanic membrane, external ear and ear canal normal. Nose: Rhinorrhea present. Right sinus exhibits no maxillary sinus tenderness and no frontal sinus tenderness. Left sinus exhibits no maxillary sinus tenderness and no frontal sinus tenderness. Mouth/Throat: Posterior oropharyngeal erythema (PND) present. Eyes: Conjunctivae are normal. Neck: Normal range of motion. Neck supple. Cardiovascular: Normal rate, regular rhythm and normal heart sounds. Pulmonary/Chest: Effort normal and breath sounds normal. No respiratory distress. She has no wheezes. Abdominal: Soft. She exhibits no distension. There is no tenderness. Lymphadenopathy: She has no cervical adenopathy. Skin: Skin is warm and dry. No rash noted. Nursing note and vitals reviewed. ASSESSMENT/PLAN: 1. Sinobronchitis - ICD9: 473.9, 490, ICD10: J32.9, J40 - Amoxil given, but with instructions to wait til >10 days and worsening symptoms. - Pt verbalized understanding. - The patient should also be given OTC decongestants prn, OTC cough and cold meds as needed, warm salt water gargles, throat lozenges and/or OTC throat spray as needed and nasal saline gtts and suction prn for the first 5-7 days of treatment. - Supportive care with plenty of fluids, rest, and analgesia prn. - Follow up in 3-5 days if symptoms persist or worsen. Prescription instructions reviewed with patient as applicable. Patient advised if symptoms do not improve or if symptoms worsen sooner, to contact their primary care physician. Potential red flag symptoms discussed with the patient. Reviewed appropriate action plan to take if red flag symptoms occur. Patient agreeable to treatment plan. Sina Aponte APRN.WORT EXTRACTOR Referring Provider: SELF [200] Allergies As of Date: 04/23/2018 (No Known Allergies) Date Reviewed: 04/23/2018 Reviewed by: Margaret Jack Ma - Fully Assessed Reason for Visit: Cough [28] Cmt: x1 wk Nasal Congestion [235] Cmt: x1 wk Primary Visit Diagnosis:Sinobronchitis [J32.9, J40] Order(s):Sthvnccwgqmntrz-Wgyslintm-UV (BROMFED DM) 2-30-10 mg/5 mL syrupTake 10 mL by mouth four times daily as needed for up to 7 days.Disp: 240 mLRfl: 0 albuterol HFA (PROAIR HFA) 90 mcg/actuation inhalerInhale 2 Puffs as instructed every 4 hours as needed.Disp: 1 InhalerRfl: 0 amoxicillin (AMOXIL) 875 mg tabletTake 1 tablet by mouth twice daily for 10 days.Disp: 20 tabletRfl: 0 Prescriptions as of 04/23/2018 Sig: BROMPHENIRAMINE-PSEUDOEPHEDRI* Take 10 mL by mouth four time* ALBUTEROL SULFATE HFA 90 MCG/* Inhale 2 Puffs as instructed * AMOXICILLIN 875 MG TABLET Take 1 tablet by mouth twice * NORETHINDRONE ACETATE-ETHINYL* Take by mouth. Problem List As Of Date: 04/23/2018 (None) Prescriptions ordered this encounter Disp Refills Start End XVRZTDPANUUDTTY-DNYOLRHDLNJTFTG-PL 2* 240 * 0 04/23/2018 04/30/2018 Route: ORAL Sig: Take 10 mL by mouth four times daily as needed for up to 7 days. ALBUTEROL SULFATE HFA 90 MCG/ACTUATI* 1 In* 0 04/23/2018 Route: INHALATION Sig: Inhale 2 Puffs as instructed every 4 hours as needed. AMOXICILLIN 875 MG TABLET 20 t* 0 04/23/2018 05/03/2018 Route: ORAL Sig: Take 1 tablet by mouth twice daily for 10 days. Medications Discontinued During This Encounter Gvodnfsfeyxpqrj-Ppaylobpx-QB (BROMFE* 120 * 0 07/04/2017 04/23/2018 Route: ORAL Sig: Take 10 mL by mouth four times daily as needed. Patient not taking: Reported on 04/14/2018 Disc: Reason for discontinue is not on file. Disposition: Return if symptoms worsen or fail to improve. Follow-up and Disposition History Recorded Letter Text Sina Aponte APRN.CNP Urgent Care [address] [facility] [address] Dept: [phone] 04/23/2018 Shakira Ramos [address] [facility] [address] To Whom it May Concern: This is to certify that Shakira Ramos was seen at our office for medical care. Shakira may return to school on 04/24/2018. If you have any questions please feel free to call. Sincerely: Sina Aponte APRN.CNP Encounter Status:Closed by SINA APONTE on 04/23/18 CBC W/DIFF, AUTOMATED Collected: 04/16/2018 Status: F Source: [place] 1:02 PM [facility] REPOSITORY TYPE CODE TESTS RESULT OUT OF RANGE REFERENCE UNITS LAB L100.1000 4.4-11.0 K/mm3 Normal WBC 10.1 LAB L100.1200 4.2-5.4 M/mm3 Low RBC 4.01 LAB L100.1300 12.0-15.0 g/dl Low HGB 11.1 LAB L100.1400 37-47 % Low HCT 33.1 LAB L100.1500 81-99 fL Normal MCV 82.5 LAB L100.1600 27.0-32.0 pg Normal MCH 27.7 LAB L100.1700 32-36 g/gl Normal MCHC 33.5 LAB L100.1810 11.6-14.6 % Normal RDW CV 13.4 LAB L100.1820 35.1-43.9 fl Normal RDW SD 39.0 LAB L100.1900 150-450 K/mm3 Normal PLT 265 LAB L100.2000 6.2-12.0 fl Normal MPV 9.7 LAB L100.2100 47-70 % High NEUT% 73.1 LAB L100.2200 19-41 % Normal LY% 19.1 LAB L100.2300 0-10 % Normal MONO% 5.8 LAB L100.2400 0-5 % Normal EO% 1.0 LAB L100.2500 0-1 % Normal BASO% 0.1 LAB L100.2550 0.0-0.9 % Normal IM GRAN % 0.900 Result Comment: IG% - Immature Granulocytes (promyelocytes, myelocytes and metamyelocytes) > 1% indicates that a LEFT SHIFT is Present. LAB L100.2620 2.0-7.7 X10 3/uL Normal Absolute Neut 7.4 LAB L100.2720 0.83-4.51 X10 3/ul Normal Absolute Lymph 1.93 Performed By: #### L100.0100 #### [facility] [address] [place], [address] GLUCOSE CHALLENGE GEST Collected: 04/16/2018 Status: F Source: [place] 1H 50G 1:02 PM [facility] REPOSITORY TYPE CODE TESTS RESULT OUT OF RANGE REFERENCE UNITS LAB L501.0250 70-140 mg/dL Normal GLU GEST 112 50g 1H Performed By: #### L501.0250 #### [facility] [address] [place], [address] HISTOLOGIC AIDE OFFICE VISIT Observed: 04/16/2018 Status: F Source: [place] REPORT 12:31 PM [facility] REPOSITORY [facility] [address] [place] [address] OFFICE VISIT Date of Service: 04/16/18 MR#: [id number] Acct: [id number] Name: SHAKIRA RAMOS Rep #: [id number] : 1995 Provider: Gricel Modi MD Age/Sex: 22/F Location: [facility] Status: Signed Intake Vital Signs04/16/18 Height 5 ft 8 in 04/16/18 Weight: 245 lb 4 oz 04/16/18 Body Mass Index (BMI) 37.3 04/16/18 Blood Pressure 124/84 H Intake Visit Reasons: OB - 32 WEEKS Utility Pipe Layer Required: No Is patient in pain?: No Allergies No Known Allergies Allergy (Verified 04/16/18 12:01) Medications vitamin,calcium,wddezxmd-wnnw-vaoeb acid tablet 1 tab PO DAILY 02/16/18 [History Confirmed 04/16/18] Last Menstral Period: 09/22/17 Zika: Zika virus screening: Negative : No PFSH PFSH Medical History Asthma (Chronic) PCOS (polycystic ovarian syndrome) (Inactive) Social History Smoking Status: Former smoker alcohol intake: never substance use type: does not use caffeine: Yes what type of physical activity do you participate in: none seatbelt use: always do you feel safe at home: Yes 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: Gzhsjezkk-Dpchgpo-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 OB Visit LORETTA Calculator Estimated Delivery Date 07/14/18 Based on Ultrasound Date 11/27/17 Current WG 27w 2d Number 1 Expected Delivery Route/Plan Specific Issue/Plans flu vaccine: plan to give at next visit tdap vaccine: [] rhogam: [] LARC form signed: [] labor support person: [] pain management: [] cut cord/dad catch: [] : [] PP control planned: [] special requests: [] Initial Weight: 241 lb Date Weight BP Urine PrFHR FuHt Pres MoCTX DilationFetal StVisit NoProviderComments E ot v te GA G Effac lucose ed Visit Notes Visit Date: 04/16/18 no vb lof good fm no regular ctx Gricel Modi MD on 04/16/18 Visit Date: 04/06/18 no vb lof good fm no regular ctx. Gricel Modi MD on 04/06/18 Visit Date: 03/09/18 no vb lof some fm. normal anatomy scan Gricel Modi MD on 03/14/18 Visit Date: 02/16/18 no vb cramping reschedule anatomy scan Gricel Modi MD on 02/16/18 Visit Date: 01/12/18 no vb crmaping less nausea doing well Gricel Modi MD on 01/14/18 Visit Date: 12/15/17 no vb cramping. has had decreased appetite.. Gricel Modi MD on 12/15/17 Visit Date: 11/18/17 No visit notes to display ACOG First Trimester First Trimester: Desire for , Alcohol, Tobacco Cessation, Illicit/Recreational Drug/Substance Use, Intimate Partner Violence, Barriers to care, Unstable Housing, Communication Barriers, Environmental/Work Hazards, Anticipated Course of Care, Toxoplasmosis Precations, Use of Any medications, Sexual activity, Exercise, Dental Care, Sauna/Hot tub use, Seat Belt use, Childbirth classes/Hospital facilities, , Travel, Indications for US and Screening for Aneuploidy Diagnostics Diagnostics Labs Blood Type A POSITIVE 11/18/17 Antibody Screen NEGATIVE 11/18/17 Hct 36.5 % (37-47) L 11/18/17 Hgb 12.4 g/dl (12.0-15.0) 11/18/17 Obstetrics Ultrasound 02/27/18 Rubella IgG Antibody 12.8 IU/mL 11/18/17 RPR NONREACTIVE (NONREACTIVE) 11/18/17 Hep Bs Antigen Negative (Negative) 11/18/17 Chlam trachomat DNA PCR Negative (Negative) 11/18/17 N.gonorrhoeae DNA (PCR) Negative (Negative) 11/18/17 Glucose 1 Hr 50 gm 107 mg/dL (70-140) 11/18/17 Miscellaneous Test 03/09/18 Details: HIV: Urine Culture: Sequential Screen: NIPT Screen: ROS Const Denies fever(s) GI Denies abdominal pain, Reports as per HPI Denies vaginal discharge, Denies abnormal vaginal bleeding, Reports as per HPI Exam Const General: healthy appearing, comfortable, no acute distress GI Inspection: normal to inspection Palpation: soft, nontender Office Meds Flucelvax Quad [id number] (PF) Performing Provider: Gricel Modi MD Administered by: Jessica Pettit on 04/16/18 12:14 Dose Route Admin Location Lot Number Expiration Date [facility] Director Of Pharmacy [address] [facility] [id number] 12/06/18 16305-648-50 SEQIRUS Results [id number] Office Urine Glucose Negative Last Edit by Jessica Pettit on 04/16/18 12:08 Office Urine Protein Negative Last Edit by Jessica Pettit on 04/16/18 12:08 Immunizations Boostrix Tdap Performing Provider: Gricel Modi MD Administered by: Jessica Pettit on 04/16/18 12:09 Dose Route Admin Location Lot Number Expiration Date [place] Director Of Pharmacy 0.5 mL IM Left Arm (SQ) [id number] 05/02/19 81491-198-96 [employer] VIS Given Date VIS Publication Date 04/16/18 08/02/14 Eligibility Eligibility Date Assessment AND Plan Problems 1. Mild intermittent asthma without complication J45.20 no inhaler needed 2. ASCUS of cervix with negative high risk HPV R87.610 pap due 11/2018 3. 25 weeks gestation of Z3A.25 genetic, carrier, screening declined. anatomy scan WNL.Negative AFP screening 4. Encounter for supervision of normal first in second trimester Z34.02 PRR [place] 07/14/18 boy August boyfriend Octavio Plan movement and labor precautions reviewed. ACOG trimester education reviewed and updated. see problem list details for updated plan management information and see below for orders placed at this visit. [place] appropriate handout given. Orders Orders: Medications Discontinued: Boostrix Tdap (diphth,pertus(acell),tetanus) Disco0.5 mL IM ONCE #1 0RF NS Z23, Z34.90 ntinued Reason: Office Medication has been Documente d as given Coding Level of Care Code Off vis,est,level 3 Diagnoses Mild intermittent asthma without complication J45.20 Asthma severity: mild Asthma persistence: intermittent Asthma complication type: uncomplicated ASCUS of cervix with negative high risk HPV R87.610 25 weeks gestation of Z3A.25 Weeks of gestation: 25 weeks Encounter for supervision of normal first in second trimester Z34.02 Normal : normal first Trimester: second trimester 04/16/18 1231 <Electronically signed by Gricel Modi MD> Date Gricel Modi MD Cosigner Signature: Date (if applicable) CC: PROGRESS Observed: 04/14/2018 Status: COMPLETED Source: [place] 10:11 AM [facility] RE[facility] HNO ID: [id number] Author: Aviva Carter Service: (none) Author Type: Nurse Practitioner Type: Progress Notes Filed: 04/14/2018 10:14 AM Note Text: Subjective HPI HPI Shakira Ramos is a 22 year old female who presents today for CC of itchy watery eyes, 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 No family history on file. Social History Marital status: Single Spouse name: Years of education: Number of children: Social History Main Topics Smoking status: Never Smoker Smokeless tobacco: Never Used No past medical history on file. Review of Systems Constitutional: Negative for chills, fever, malaise/fatigue and weight loss. HENT: Negative for congestion, ear discharge, ear pain and sore throat. Eyes: Positive for discharge and redness (itching). Respiratory: Negative for cough. Gastrointestinal: Negative for abdominal pain, diarrhea, nausea and vomiting. Musculoskeletal: Negative for myalgias. Neurological: Negative for headaches. Objective Physical Exam Constitutional: She is oriented to person, place, and time and well-developed, well-nourished, and in no distress. HENT: Head: Normocephalic and atraumatic. Right Ear: Tympanic membrane, external ear and ear canal normal. Tympanic membrane is not injected, not erythematous, not retracted and not bulging. No middle ear effusion. Left Ear: Tympanic membrane and ear canal normal. There is drainage (cerumen impaction). Tympanic membrane is not injected, not erythematous, not retracted and not bulging. No middle ear effusion. Nose: Nose normal. Right sinus exhibits no maxillary sinus tenderness and no frontal sinus tenderness. Left sinus exhibits no maxillary sinus tenderness and no frontal sinus tenderness. Mouth/Throat: Uvula is midline, oropharynx is clear and moist and mucous membranes are normal. No oropharyngeal exudate, posterior oropharyngeal edema, posterior oropharyngeal erythema or tonsillar abscesses. Aviva Carter APRN.WORT EXTRACTOR removed impacted cerumen using a plastic curette using standard procedure without complication. Lavage done of left ear by Rubio Tubbs MA, patient tolerated well, able to see TM - see exam Eyes: Pupils are equal, round, and reactive to light. Conjunctivae and EOM are normal. Right eye exhibits no discharge. Left eye exhibits no discharge. Right conjunctiva is not injected. Left conjunctiva is not injected. Fundoscopic exam: The right eye shows red reflex. The left eye shows red reflex. Neck: Normal range of motion. Neck supple. Pulmonary/Chest: Effort normal. Lymphadenopathy: Head (right side): No submental, no submandibular, no tonsillar, no preauricular and no posterior auricular adenopathy present. Head (left side): No submental, no submandibular, no tonsillar, no preauricular and no posterior auricular adenopathy present. She has no cervical adenopathy. Right: No supraclavicular adenopathy present. Left: No supraclavicular adenopathy present. Neurological: She is alert and oriented to person, place, and time. Skin: Skin is warm and dry. Psychiatric: Affect normal. Nursing note and vitals reviewed. ASSESSMENT/PLAN: 1. Acute conjunctivitis of both eyes, unspecified acute conjunctivitis type - ICD9: 372.00, ICD10: H10.33 - Appears to be allergic - OTC - Zaditor as directed on the package - Instructed to call if high fever, development of periorbital redness or swelling, eye pain, visual changes, concerns or if symptoms persist. Cool compresses as needed for comfort 2. Impacted cerumen of left ear - ICD9: 380.4, ICD10: H61.22 Use may use OTC Debrox or Cerumenex once a month for maintenance. Avoid inserting Q-tips into your ears. Follow up with your PCP as needed. Diagnosis and treatment plan were discussed and questions were answered to the patient's satisfaction. Pt acknowledged understanding of concepts and follow up plan. Specific signs and symptoms that would indicate the need for higher level of care were discussed in detail warranting prompt ER evaluation. Aviva Carter APRN.CNP CNOV Observed: 04/14/2018 Status: COMPLETED Source: [place] 9:15 AM [facility] REPOSITORY Office Visit ([facility]) SHAKIRA RAMOS ([id number]) 1995 F Date Time Provider Department 04/14/18 9:15 AM [facility] During your visit today, we recorded the following information about you: Temperature Pulse Respiration Blood pressure 97.8 degrees 92/minute 16/minute 124/72 Weight 109.8 kg Aviva Carter APRN.CNP 04/14/2018 10:06 AM Addendum ASSESSMENT/PLAN: 1. Acute conjunctivitis of both eyes, unspecified acute conjunctivitis type - ICD9: 372.00, ICD10: H10.33 - Appears to be allergic - OTC - Zaditor as directed on the package - Instructed to call if high fever, development of periorbital redness or swelling, eye pain, visual changes, concerns or if symptoms persist. Cool compresses as needed for comfort 2. Impacted cerumen of left ear - ICD9: 380.4, ICD10: H61.22 Use may use OTC Debrox or Cerumenex once a month for maintenance. Avoid inserting Q-tips into your ears. Follow up with your PCP as needed. 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 No family history on file. Social History Marital status: Single Spouse name: Years of education: Number of children: Social History Main Topics Smoking status: Never Smoker Smokeless tobacco: Never Used No past medical history on file. Review of Systems Constitutional: Negative for chills, fever, malaise/fatigue and weight loss. HENT: Negative for congestion, ear discharge, ear pain and sore throat. Eyes: Positive for discharge and redness (itching). Respiratory: Negative for cough. Gastrointestinal: Negative for abdominal pain, diarrhea, nausea and vomiting. Musculoskeletal: Negative for myalgias. Neurological: Negative for headaches. Objective Physical Exam Constitutional: She is oriented to person, place, and time and well-developed, well-nourished, and in no distress. HENT: Head: Normocephalic and atraumatic. Right Ear: Tympanic membrane, external ear and ear canal normal. Tympanic membrane is not injected, not erythematous, not retracted and not bulging. No middle ear effusion. Left Ear: Tympanic membrane and ear canal normal. There is drainage (cerumen impaction). Tympanic membrane is not injected, not erythematous, not retracted and not bulging. No middle ear effusion. Nose: Nose normal. Right sinus exhibits no maxillary sinus tenderness and no frontal sinus tenderness. Left sinus exhibits no maxillary sinus tenderness and no frontal sinus tenderness. Mouth/Throat: Uvula is midline, oropharynx is clear and moist and mucous membranes are normal. No oropharyngeal exudate, posterior oropharyngeal edema, posterior oropharyngeal erythema or tonsillar abscesses. Aviva Carter APRN.WORT EXTRACTOR removed impacted cerumen using a plastic curette using standard procedure without complication. Lavage done of left ear by Rubio Tubbs MA, patient tolerated well, able to see TM - see exam Eyes: Pupils are equal, round, and reactive to light. Conjunctivae and EOM are normal. Right eye exhibits no discharge. Left eye exhibits no discharge. Right conjunctiva is not injected. Left conjunctiva is not injected. Fundoscopic exam: The right eye shows red reflex. The left eye shows red reflex. Neck: Normal range of motion. Neck supple. Pulmonary/Chest: Effort normal. Lymphadenopathy: Head (right side): No submental, no submandibular, no tonsillar, no preauricular and no posterior auricular adenopathy present. Head (left side): No submental, no submandibular, no tonsillar, no preauricular and no posterior auricular adenopathy present. She has no cervical adenopathy. Right: No supraclavicular adenopathy present. Left: No supraclavicular adenopathy present. Neurological: She is alert and oriented to person, place, and time. Skin: Skin is warm and dry. Psychiatric: Affect normal. Nursing note and vitals reviewed. ASSESSMENT/PLAN: 1. Acute conjunctivitis of both eyes, unspecified acute conjunctivitis type - ICD9: 372.00, ICD10: H10.33 - Appears to be allergic - OTC - Zaditor as directed on the package - Instructed to call if high fever, development of periorbital redness or swelling, eye pain, visual changes, concerns or if symptoms persist. Cool compresses as needed for comfort 2. Impacted cerumen of left ear - ICD9: 380.4, ICD10: H61.22 Use may use OTC Debrox or Cerumenex once a month for maintenance. Avoid inserting Q-tips into your ears. Follow up with your PCP as needed. Diagnosis and treatment plan were discussed and questions were answered to the patient's satisfaction. Pt acknowledged understanding of concepts and follow up plan. Specific signs and symptoms that would indicate the need for higher level of care were discussed in detail warranting prompt ER evaluation. Aviva Carter APRN.TAMIKO Referring Provider: SELF [[id number]] Allergies As of Date: 04/14/2018 (No Known Allergies) Date Reviewed: 04/14/2018 Reviewed by: Aviva (Tamiko) Emma - Fully Assessed Reason for Visit: bilateral red eyes [Other] Cmt: 2-3 days Primary Visit Diagnosis:Acute conjunctivitis of both eyes, unspecified acute conjunctivitis type [H10.33] Other Visit Diagnosis:Impacted cerumen of left ear [H61.22] Prescriptions as of 04/14/2018 Sig: BROMPHENIRAMINE-PSEUDOEPHEDRI* Take 10 mL by mouth four time* Patient not taking: Reported on 04/14/2018 NORETHINDRONE ACETATE-ETHINYL* Take by mouth. Problem List As Of Date: 04/14/2018 (None) Other instructions from your clinician: ASSESSMENT/PLAN: 1. Acute conjunctivitis of both eyes, unspecified acute conjunctivitis type - ICD9: 372.00, ICD10: H10.33 - Appears to be allergic - OTC - Zaditor as directed on the package - Instructed to call if high fever, development of periorbital redness or swelling, eye pain, visual changes, concerns or if symptoms persist. Cool compresses as needed for comfort 2. Impacted cerumen of left ear - ICD9: 380.4, ICD10: H61.22 Use may use OTC Debrox or Cerumenex once a month for maintenance. Avoid inserting Q-tips into your ears. Follow up with your PCP as needed. Letter Text Aviva Carter APRN.WORT EXTRACTOR [facility] [address] [facility] [address] Dept: [phone] 04/14/2018 Shakira Ramos [address] [facility] [address] To Whom it May Concern: This is to certify that Shakira Ramos was seen at our office for medical care. Shakira may return to work on 04.15.2018. If you have any questions please feel free to call. Sincerely: Aviva Carter APRN.CNP Encounter Status:Closed by AVIVA CARTER CNP on 04/14/18 HISTOLOGIC AIDE OFFICE VISIT Observed: 04/06/2018 Status: F Source: [place] REPORT 4:[address] [facility] [address] [place] [address] OFFICE VISIT Date of Service: 04/06/18 MR#: [id number] Acct: [id number] Name: SHAKIRA RAMOS Rep #: [id number] : 1995 Provider: Gricel Modi MD Age/Sex: 22/F Location: [facility] Status: Signed Intake Vital Signs04/06/18 Height 5 ft 8 in 04/06/18 Weight: 244 lb 04/06/18 Body Mass Index (BMI) 37.0 04/06/18 Blood Pressure 116/74 Intake Visit Reasons: est ob 30 weeks Chief Complaint: est ob Utility Pipe Layer Required: No Is patient in pain?: No Allergies No Known Allergies Allergy (Verified 04/06/18 16:04) Medications vitamin,calcium,uexdlsfm-gzds-kwtqj acid tablet 1 tab PO DAILY 02/16/18 [History Confirmed 04/06/18] Last Menstral Period: 09/22/17 Zika: Zika virus screening: Negative : No PFSH PFSH Medical History Asthma (Chronic) PCOS (polycystic ovarian syndrome) (Inactive) Social History Smoking Status: Former smoker alcohol intake: never substance use type: does not use caffeine: Yes what type of physical activity do you participate in: none seatbelt use: always do you feel safe at home: Yes 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: Ofpyciyqv-Iewzvyd-Odkjuvz 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 OB Visit [place] Calculator Estimated Delivery Date 07/14/18 Based on Ultrasound Date 11/27/17 Current WG 25w 6d Number 1 Expected Delivery Route/Plan Specific Issue/Plans flu vaccine: plan to give at next visit tdap vaccine: [] rhogam: [] LARC form signed: [] labor support person: [] pain management: [] cut cord/dad catch: [] : [] PP control planned: [] special requests: [] Initial Weight: 241 lb Date Weight BP Urine PFHR FuHt Pres MCTX DilatioFetal SVisit NProvideComment rot ov n t ote r s EGA Ef Gluco faced se 11/18/1240 lb 134/78 8 (+0 oz) 6w 0d Visit Notes Visit Date: 04/06/18 no vb lof good fm no regular ctx. Gricel Modi MD on 04/06/18 Visit Date: 03/09/18 no vb lof some fm. normal anatomy scan Gricel Modi MD on 03/14/18 Visit Date: 02/16/18 no vb cramping reschedule anatomy scan Gricel Modi MD on 02/16/18 Visit Date: 01/12/18 no vb crmaping less nausea doing well Gricel Modi MD on 01/14/18 Visit Date: 12/15/17 no vb cramping. has had decreased appetite.. Gricel Modi MD on 12/15/17 Visit Date: 11/18/17 No visit notes to display ACOG First Trimester First Trimester: Desire for , Alcohol, Tobacco Cessation, Illicit/Recreational Drug/Substance Use, Intimate Partner Violence, Barriers to care, Unstable Housing, Communication Barriers, Environmental/Work Hazards, Anticipated Course of Care, Toxoplasmosis Precations, Use of Any medications, Sexual activity, Exercise, Dental Care, Sauna/Hot tub use, Seat Belt use, Childbirth classes/Hospital facilities, , Travel, Indications for US and Screening for Aneuploidy Diagnostics Diagnostics Labs Blood Type A POSITIVE 11/18/17 Antibody Screen NEGATIVE 11/18/17 Hct 36.5 % (37-47) L 11/18/17 Hgb 12.4 g/dl (12.0-15.0) 11/18/17 Obstetrics Ultrasound 02/27/18 Rubella IgG Antibody 12.8 IU/mL 11/18/17 RPR NONREACTIVE (NONREACTIVE) 11/18/17 Hep Bs Antigen Negative (Negative) 11/18/17 Chlam trachomat DNA PCR Negative (Negative) 11/18/17 N.gonorrhoeae DNA (PCR) Negative (Negative) 11/18/17 Glucose 1 Hr 50 gm 107 mg/dL (70-140) 11/18/17 Miscellaneous Test 03/09/18 Details: HIV: Urine Culture: Sequential Screen: NIPT Screen: ROS Const Denies fever(s) GI Denies abdominal pain, Reports as per HPI Denies vaginal discharge, Denies abnormal vaginal bleeding, Reports as per HPI Exam Const General: healthy appearing, comfortable, no acute distress GI Inspection: normal to inspection Palpation: soft, nontender Results [id number] Office Urine Glucose Negative Last Edit by Jammie Cuenca on 04/06/18 16:08 Office Urine Protein Negative Last Edit by Jammie Cuenca on 04/06/18 16:08 Assessment AND Plan Problems 1. Mild intermittent asthma without complication J45.20 no inhaler needed 2. ASCUS of cervix with negative high risk HPV R87.610 pap due 11/2018 3. 25 weeks gestation of Z3A.25 genetic, carrier, and ntd screening declined. anatomy scan WNL.Negative AFP screening 4. Encounter for supervision of normal first in second trimester Z34.02 PRR [place] 07/14/18 boy August boyfriend Octavio Plan ACOG trimester education reviewed and updated. see problem list details for updated plan management information and see below for orders placed at this visit. [place] appropriate handout given. Orders Orders: Coding Level of Care Code Off vis,est,level 3 Diagnoses Mild intermittent asthma without complication J45.20 Asthma severity: mild Asthma persistence: intermittent Asthma complication type: uncomplicated ASCUS of cervix with negative high risk HPV R87.610 25 weeks gestation of Z3A.25 Weeks of gestation: 25 weeks Encounter for supervision of normal first in second trimester Z34.02 Normal : normal first Trimester: second trimester 04/06/18 1627 <Electronically signed by Gricel Modi MD> Date Gricel Modi MD Cosigner Signature: Date (if applicable) CC: HISTOLOGIC AIDE OFFICE VISIT Observed: 03/14/2018 Status: F Source: [place] REPORT 6:02 AM [facility] REPOSITORY [facility] [address] [place] [address] OFFICE VISIT Date of Service: 03/09/18 MR#: [id number] Acct: [id number] Name: SHAKIRA RAMOS Rep #: [id number] : 1995 Provider: Gricel Modi MD Age/Sex: 22/F Location: [facility] Status: Signed Intake Vital Signs03/09/18 Height 5 ft 8 in 03/09/18 Weight: 237 lb 03/09/18 Body Mass Index (BMI) 36.0 03/09/18 Blood Pressure 124/78 H Intake Visit Reasons: est ob 26 weeks Utility Pipe Layer Required: No Is patient in pain?: No Allergies No Known Allergies Allergy (Verified 03/09/18 16:41) Medications vitamin,calcium,rgoslhuz-ahai-grgff acid tablet 1 tab PO DAILY 02/16/18 [History Confirmed 03/09/18] Last Menstral Period: 09/22/17 Zika: Zika virus screening: Negative : No PFSH PFSH Medical History Asthma (Chronic) PCOS (polycystic ovarian syndrome) (Inactive) Social History Smoking Status: Former smoker alcohol intake: never substance use type: does not use caffeine: Yes what type of physical activity do you participate in: none seatbelt use: always do you feel safe at home: Yes 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: Fbyhybnpi-Jwcqhcl-Bsgquqm 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 OB Visit [place] Calculator Estimated Delivery Date 07/14/18 Based on Ultrasound Date 11/27/17 Current WG 22w 4d Number 1 Expected Delivery Route/Plan Specific Issue/Plans flu vaccine: [] minichart given: [] tdap vaccine: [] rhogam: [] LARC form signed: [] labor support person: [] pain management: [] cut cord/dad catch: [] : [] PP control planned: [] special requests: [] Initial Weight: 241 lb Date Weight BP Urine PrFHR FuHt Pres MoCTX DilationFetal StVisit NoProviderComments E ot v te GA G Effac lucose ed Visit Notes Visit Date: 03/09/18 no vb lof some fm. normal anatomy scan Gricel Modi MD on 03/14/18 Visit Date: 02/16/18 no vb cramping reschedule anatomy scan Gricel Modi MD on 02/16/18 Visit Date: 01/12/18 no vb crmaping less nausea doing well Gricel Modi MD on 01/14/18 Visit Date: 12/15/17 no vb cramping. has had decreased appetite.. Gricel Modi MD on 12/15/17 Visit Date: 11/18/17 No visit notes to display ACOG First Trimester First Trimester: Desire for , Alcohol, Tobacco Cessation, Illicit/Recreational Drug/Substance Use, Intimate Partner Violence, Barriers to care, Unstable Housing, Communication Barriers, Environmental/Work Hazards, Anticipated Course of Care, Toxoplasmosis Precations, Use of Any medications, Sexual activity, Exercise, Dental Care, Sauna/Hot tub use, Seat Belt use, Childbirth classes/Hospital facilities, , Travel, Indications for US and Screening for Aneuploidy Diagnostics Diagnostics Labs Blood Type A POSITIVE 11/18/17 Antibody Screen NEGATIVE 11/18/17 Hct 36.5 % (37-47) L 11/18/17 Hgb 12.4 g/dl (12.0-15.0) 11/18/17 Obstetrics Ultrasound 02/27/18 Rubella IgG Antibody 12.8 IU/mL 11/18/17 RPR NONREACTIVE (NONREACTIVE) 11/18/17 Hep Bs Antigen Negative (Negative) 11/18/17 Chlam trachomat DNA PCR Negative (Negative) 11/18/17 N.gonorrhoeae DNA (PCR) Negative (Negative) 11/18/17 Glucose 1 Hr 50 gm 107 mg/dL (70-140) 11/18/17 Miscellaneous Test Pending 03/09/18 Details: HIV: Urine Culture: Sequential Screen: NIPT Screen: Assessment AND Plan Problems 1. 21 weeks gestation of Z3A.21 genetic, carrier, and ntd screening declined. anatomy scan WNL. 2. ASCUS of cervix with negative high risk HPV R87.610 pap due 11/2018 3. Encounter for supervision of normal first in second trimester Z34.02 PRR [place] 07/14/18 boy boyfriend Octavio 4. Mild intermittent asthma without complication J45.20 no inhaler needed Plan ACOG trimester education reviewed and updated. see problem list details for updated plan management information and see below for orders placed at this visit. [place] appropriate handout given. Coding Level of Care Code OB Routine Diagnoses 21 weeks gestation of Z3A.21 Weeks of gestation: 21 weeks ASCUS of cervix with negative high risk HPV R87.610 Encounter for supervision of normal first in second trimester Z34.02 Normal : normal first Trimester: second trimester Mild intermittent asthma without complication J45.20 Asthma severity: mild Asthma persistence: intermittent Asthma complication type: uncomplicated 03/14/18 0602 <Electronically signed by Gricel Modi MD> Date Gricel Modi MD Cosigner Signature: Date (if applicable) CC: MISCELLANEOUS LAB Collected: 03/09/2018 Status: F Source: [place] PROCEDURE 4:57 PM [facility] REPOSITORY Order Comment: Test(s) Ordered: [id number] MSAFP SER RT TYPE CODE TESTS RESULT OUT OF RANGE REFERENCE UNITS LAB L801.1541 Normal [facility] TEST Result Comment: TEST RESULT LIMITS AFP, Serum, Open Spina Bifida Results Report Test Results: *Screen Negative* Gest. Age on Collection Date 21.9 weeks Gestat. Age Based On Ultrasound 21.9 on 03/09/2018 Recalculations are not recommended when gestational dating by LMP and ultrasound are within 10 days. M[age] [place] [age] yr Race Weight 237 lbs Insulin Dep Diabetes No Multiple Gestation No AFP Value 44.2 ng/mL AFP MoM 0.80 OSBR Risk 1 [place] [id number] Interpretation Interpretation: Screen Negative This result is screen negative for OSB. The AFP MoM calculated is based on the gestational age provided. MS-AFP can identify up to 80% of open neural tube defects. Closed neural tube defects and some open defects may not be detected by this test. This test does not screen for Down Syndrome or Trisomy 18. If screening for Down Syndrome or Trisomy 18 is desired, contact Genetic Customer Services to discuss available options. The [employer] recommends amniocentesis be offered to women age 35 and older. Comment: 01 Nasreen No, Ph.D., [facility] Principal Genetics Director Of Leadership Development References: Available Upon Request. Multiples Of Median Cutoffs For AFP Elevations Chavez 2.5 Black 2.8 IDD 2.0 Twins 4.5 Abbreviation Definitions IDD - Insulin Dep Diabetes OSBR - Open Spina Bifida Risk For further inquiries contact [facility] Services at [phone]. TESTING PERFORMED AT [facility]. ORIGINAL REPORT ON FILE IN LAB CONTAINS ADDITIONAL TEST SITE INFORMATION. Performed By: #### [id number] #### [facility] [address] [place], [address] OB LIMITED (NO Observed: 02/27/2018 Status: F Source: [facility] [employer]) 4:03 PM [facility] REPOSITORY [facility] Imaging Services [address] [place] [address] OB Limited (No Biometrics) MR#: [id number] Acct: [id number] Name: SHAKIRA RAMOS Rosemary Rep #: [id number] : 1995 F 22 From: Roger Bhandarian PCP: Care Physician, No Primary Status: REG CLI Study: OB Limited (No Biometrics) Date of Exam: 02/27/18 Exam# [id number] Ordering Dr: Gricel Modi MD STUDY: SECOND AND THIRD TRIMESTER OBSTETRICAL ULTRASOUND REASON FOR EXAM: Female, 22 years old. For anatomy. Follow-up. LMP: 10/07/2017 TECHNIQUE: Transabdominal PRIOR ULTRASOUND: 02/02/2018 FINDINGS: There is a single intrauterine fetus. The fetus is in a breech presentation. There is demonstrated cardiac activity with a heart rate of 150 bpm. There is a normal amniotic fluid volume. The placenta is anterior in location and is not low lying. The cervix measures 4.4 cm in length. The adnexal regions are not visualized. BIOMETRY: BPD: 5.0 cm: 21 weeks, 2 days HC: 18.8 cm: 21 weeks, 1 days AC: 16.1 cm: 21 weeks, 2 days FL: 3.5 cm: 21 weeks, 1 days FL/BPD: 69% FL/AC: 22% HC/AC: 1.16 age by current US: 21 weeks, 2 days. LORETTA by current US: 07/08/2018. Estimated weight: 401 grams, +/- 59 grams, 82 %. age by prior US: 21 weeks, 3 days. LORETTA by prior US: 07/07/2018. Age by LMP: 20 weeks, 3 days. LORETTA by LMP: 07/14/2018. ANATOMY: Visualized. Gender: Male Face, nose and lips. Diaphragm. Spine: cervical spine. thoracic spine. lumbar spine. sacrum. US/OB Limited (No Biometrics) IMPRESSION: 1. Single alive intrauterine uterine is seen in a breech position. 2. Estimated gestational age by current ultrasound: 21 weeks 2 days and LORETTA: 07/08/2018. Based on LMP gestational age: 20 weeks 3 days and LORETTA: 07/14/2018. Based on prior ultrasound gestational age: 21 weeks 3 days and LORETTA: 07/07/2018. 3. Unremarkable visualized anatomy, as described. Electronically Signed: Alan Lambert MD at 21:16 EDT Tel , Service support , CC: No Primary Care Physician; Gricel Modi MD Marketing Ambassador: Signed HISTOLOGIC AIDE OFFICE VISIT Observed: 02/16/2018 Status: F Source: [facility] REPORT 3:50 PM [facility]'s [address] [place] [address] OFFICE VISIT Date of Service: 02/16/18 MR#: [id number] Acct: [id number] Name: SHAKIRA RAMOS Rep #: [id number] : 1995 Provider: Gricel Modi MD Age/Sex: 22/F Location: [facility] Status: Signed Intake Vital Signs02/16/18 Height 5 ft 8 in 02/16/18 Weight: 234 lb 8 oz 02/16/18 Body Mass Index (BMI) 35.6 02/16/18 Blood Pressure 112/62 Intake Visit Reasons: est ob 18 weeks Chief Complaint: est ob Utility Pipe Layer Required: No Is patient in pain?: No Allergies No Known Allergies Allergy (Verified 02/16/18 15:24) Medications vitamin,calcium,ywinseaa-kyvf-hkstg acid tablet 1 tab PO DAILY 02/16/18 [History Confirmed 02/16/18] Last Menstral Period: 09/22/17 Zika: Zika virus screening: Negative : No PFSH PFSH Medical History Asthma (Chronic) PCOS (polycystic ovarian syndrome) (Inactive) Social History Smoking Status: Former smoker alcohol intake: never substance use type: does not use caffeine: Yes what type of physical activity do you participate in: none seatbelt use: always do you feel safe at home: Yes 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: Ktkmsjpdu-Mtwzzqv-Jyrojdn 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 OB Visit LORETTA Calculator Estimated Delivery Date 07/14/18 Based on Ultrasound Date 11/27/17 Current WG 18w 6d Number 1 Expected Delivery Route/Plan Specific Issue/Plans flu vaccine: [] minichart given: [] tdap vaccine: [] rhogam: [] LARC form signed: [] labor support person: [] pain management: [] cut cord/dad catch: [] : [] PP control planned: [] special requests: [] Initial Weight: 241 lb Date Weight BP Urine PrFHR FuHt Pres MoCTX DilationFetal StVisit NoProviderComments E ot v te GA G Effac lucose ed Visit Notes Visit Date: 02/16/18 no vb cramping reschedule anatomy scan Gricel Modi MD on 02/16/18 Visit Date: 01/12/18 no vb crmaping less nausea doing well Gricel Modi MD on 01/14/18 Visit Date: 12/15/17 no vb cramping. has had decreased appetite.. Gricel Modi MD on 12/15/17 Visit Date: 11/18/17 No visit notes to display ACOG First Trimester First Trimester: Desire for , Alcohol, Tobacco Cessation, Illicit/Recreational Drug/Substance Use, Intimate Partner Violence, Barriers to care, Unstable Housing, Communication Barriers, Environmental/Work Hazards, Anticipated Course of Care, Toxoplasmosis Precations, Use of Any medications, Sexual activity, Exercise, Dental Care, Sauna/Hot tub use, Seat Belt use, Childbirth classes/Hospital facilities, , Travel, Indications for US and Screening for Aneuploidy Diagnostics Diagnostics Labs Blood Type A POSITIVE 11/18/17 Antibody Screen NEGATIVE 11/18/17 Hct 36.5 % (37-47) L 11/18/17 Hgb 12.4 g/dl (12.0-15.0) 11/18/17 Obstetrics Ultrasound 02/02/18 Rubella IgG Antibody 12.8 IU/mL 11/18/17 RPR NONREACTIVE (NONREACTIVE) 11/18/17 Hep Bs Antigen Negative (Negative) 11/18/17 Chlam trachomat DNA PCR Negative (Negative) 11/18/17 N.gonorrhoeae DNA (PCR) Negative (Negative) 11/18/17 Glucose 1 Hr 50 gm 107 mg/dL (70-140) 11/18/17 Details: HIV: Urine Culture: Sequential Screen: NIPT Screen: Results [id number] Office Urine Glucose Negative Last Edit by Jammie Cuenca on 02/16/18 15:25 Office Urine Protein Negative Last Edit by Jammie Cuenca on 02/16/18 15:25 Assessment AND Plan Problems 1. Encounter for supervision of normal first in second trimester Z34.02 PRR LORETTA 07/14/18 boyfriend Octavio 2. ASCUS of cervix with negative high risk HPV R87.610 pap due 11/2018 Plan ACOG trimester education reviewed and updated. see problem list details for updated plan management information and see below for orders placed at this visit. [place] appropriate handout given. Orders Orders: Coding Level of Care Code Off vis,est,level 3 Diagnoses Encounter for supervision of normal first in second trimester Z34.02 Normal : normal first Trimester: second trimester ASCUS of cervix with negative high risk HPV R87.610 02/16/18 1550 <Electronically signed by Gricel Modi MD> Date Gricel Modi MD Cosigner Signature: Date (if applicable) CC: OB ANATOMY SCAN Observed: 02/02/2018 Status: F Source: [facility] 12:26 PM [facility] REPOSITORY [facility] Imaging Services [place] [place] [address] OB Anatomy Scan MR#: [id number] Acct: [id number] Name: SHAKIRA RAMOS Rep #: [id number] : 1995 F 22 From: Vasquez Garcia MD PCP: Rena Gamino MD Status: REG CLI Study: OB Anatomy Scan Date of Exam: 02/02/18 Exam# [id number] Ordering Dr: Gricel Modi MD STUDY: SECOND AND THIRD TRIMESTER OBSTETRICAL ULTRASOUND REASON FOR EXAM: Female, 22 years old. Anatomy survey. Complete 2nd trimester OB ultrasound. LMP: 09/22/2017 TECHNIQUE: Transabdominal complete OB ultrasound with complete anatomy survey and biometrics. PRIOR ULTRASOUND: 11/27/2017. FINDINGS: There is a single live intrauterine gestation, cardiac rate 150 bpm, cephalic presentation. The cervical os is closed. The cervix measures 3.2 cm in length. The placental tip lies approximately 4.4 cm from the cervical os. The placenta lies anterior, not low-lying, grade 0. The right ovary is not clearly seen. There is no acute abnormality in the right adnexa. Left ovary appears normal. BIOMETRY: Measurement in centimeters. BPD: 4.0 to: 18 weeks, 2 days HC: 14.72: 18 weeks, 0 days AC: 11.97: 17 weeks, 5 days FL: 2.34: 17 weeks, 1 days CI: 83% FL/BPD: 50% FL/AC: 20% HC/AC: 1.23 age by current US: 17 weeks, 6 days. LORETTA by current US: 07/07/2018. Estimated weight: 195 grams, +/- 29 grams, 2nd %. age by prior US: 16 weeks, 6 days. LORETTA by prior US: 07/14/2018. Age by LMP: 19 weeks, 0 days. LORETTA by LMP: 06/29/2018. ANATOMY: The anatomy scan is partially limited by gestational age less than 18 weeks. Gender: Male Cranium: Normal lateral ventricles. Normal choroid plexus. Normal cerebellum. Normal cisterna magna. Facial features are incompletely characterized. Sagittal midline phase demonstrates normal appearance of the nasal bone, hard palate and mandible. Frontal orbits appear normal. Views of the nose and lips are limited. Chest: Normal 4-chamber heart. Abdomen/Pelvis: The entirety of the diaphragm is not clearly visualized. Normal stomach. Normal abdominal wall. Normal cord insertion. Normal 3 vessel cord. Normal kidneys. Normal bladder. Spine: Incomplete imaging of the spine. Extremities: Grossly normal appearance of 2 upper and 2 lower extremities. US/OB Anatomy Scan IMPRESSION: Single live intrauterine gestation with measurements on today's study are concordant with 17 weeks 6 day gestation with LORETTA 07/07/2017. Complete 2nd trimester OB ultrasound should typically be completed between 18 and 22 weeks gestation. The study is partially limited as noted above and callback is necessary for completion of the views of the face and spine. No acute or maternal abnormality is otherwise evident. Electronically Signed: Vasquez Garcia, at 15:37 EDT Tel , Service support , CC: Rena Gamino MD; Gricel Modi MD Marketing Ambassador: Signed HISTOLOGIC AIDE OFFICE VISIT Observed: 01/14/2018 Status: F Source: [facility] REPORT 3:[address] [facility] [address] [place] [address] OFFICE VISIT Date of Service: 01/12/18 MR#: [id number] Acct: [id number] Name: SHAKIRA RAMOS Rep #: [id number] : 1995 Provider: Gricel Modi MD Age/Sex: 22/F Location: [facility] Status: Signed Intake Vital Signs01/12/18 Height 5 ft 7 in 01/12/18 Weight: 235 lb 2 oz 01/12/18 Body Mass Index (BMI) 36.8 01/12/18 Blood Pressure 127/75 Intake Visit Reasons: est ob 14 weeks Utility Pipe Layer Required: No Accompanied by: mother Is patient in pain?: No Allergies No Known Allergies Allergy (Verified 01/12/18 15:57) Medications NK [NK] 11/18/17 [History Confirmed 01/12/18] Last Menstral Period: 09/22/17 Zika: Zika virus screening: Negative : No PFSH PFSH Medical History PCOS (polycystic ovarian syndrome) (Chronic) Asthma (Chronic) Social History Smoking Status: Former smoker alcohol intake: never substance use type: does not use caffeine: Yes what type of physical activity do you participate in: none seatbelt use: always do you feel safe at home: Yes 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: Izkfjipyd-Pujgolg-Zjylvcp 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 OB Visit LORETTA Calculator Estimated Delivery Date 06/29/18 Based on LMP (certain) 09/22/17 Current WG 16w 2d Number 1 Expected Delivery Route/Plan Specific Issue/Plans flu vaccine: [] minichart given: [] tdap vaccine: [] rhogam: [] LARC form signed: [] labor support person: [] pain management: [] cut cord/dad catch: [] : [] PP control planned: [] special requests: [] Initial Weight: 241 lb Date Weight BP Urine PrFHR FuHt Pres MoCTX DilationFetal StVisit NoProviderComments E ot v te GA G Effac lucose ed Visit Notes Visit Date: 01/12/18 no vb crmaping less nausea doing well Gricel Modi MD on 01/14/18 Visit Date: 12/15/17 no vb cramping. has had decreased appetite.. Gricel Modi MD on 12/15/17 Visit Date: 11/18/17 No visit notes to display ACOG First Trimester First Trimester: Desire for , Alcohol, Tobacco Cessation, Illicit/Recreational Drug/Substance Use, Intimate Partner Violence, Barriers to care, Unstable Housing, Communication Barriers, Environmental/Work Hazards, Anticipated Course of Care, Toxoplasmosis Precations, Use of Any medications, Sexual activity, Exercise, Dental Care, Sauna/Hot tub use, Seat Belt use, Childbirth classes/Hospital facilities, , Travel, Indications for US and Screening for Aneuploidy Diagnostics Diagnostics Labs Blood Type A POSITIVE 11/18/17 Antibody Screen NEGATIVE 11/18/17 Hct 36.5 % (37-47) L 11/18/17 Hgb 12.4 g/dl (12.0-15.0) 11/18/17 Obstetrics Ultrasound 11/27/17 Rubella IgG Antibody 12.8 IU/mL 11/18/17 RPR NONREACTIVE (NONREACTIVE) 11/18/17 Hep Bs Antigen Negative (Negative) 11/18/17 Chlam trachomat DNA PCR Negative (Negative) 11/18/17 N.gonorrhoeae DNA (PCR) Negative (Negative) 11/18/17 Glucose 1 Hr 50 gm 107 mg/dL (70-140) 11/18/17 Details: HIV: Urine Culture: Sequential Screen: NIPT Screen: Results [id number] Office Urine Glucose Negative Last Edit by Marnie Dyer on 01/12/18 16:02 Office Urine Protein Negative Last Edit by Marnie Dyer on 01/12/18 16:02 Assessment AND Plan Problems 1. ASCUS of cervix with negative high risk HPV R87.610 pap due 11/2018 2. Encounter for supervision of normal first in second trimester Z34.02 PRR LORETTA 07/14/18 boyfriend Octavio 3. Mild intermittent asthma without complication J45.20 Plan ACOG trimester education reviewed and updated. see problem list details for updated plan management information and see below for orders placed at this visit. [place] appropriate handout given. Orders Orders: Coding Level of Care Code OB Routine Diagnoses ASCUS of cervix with negative high risk HPV R87.610 Encounter for supervision of normal first in second trimester Z34.02 Normal : normal first Trimester: second trimester Mild intermittent asthma without complication J45.20 Asthma severity: mild Asthma persistence: intermittent Asthma complication type: uncomplicated 01/14/18 0302 <Electronically signed by Gricel Modi MD> Date Gricel Modi MD Cosigner Signature: Date (if applicable) CC: HISTOLOGIC AIDE OFFICE VISIT Observed: 12/15/2017 Status: F Source: [facility] REPORT 4:08 PM [facility] [address] [place] [address] OFFICE VISIT Date of Service: 12/15/17 MR#: [id number] Acct: [id number] Name: SHAKIRA RAMOS Rep #: [id number] : 1995 Provider: Gricel Modi MD Age/Sex: 22/F Location[facility] Status: Signed Intake Vital Signs12/15/17 Height 5 ft 7 in 12/15/17 Weight: 236 lb 12/15/17 Body Mass Index (BMI) 36.9 12/15/17 Blood Pressure 126/71 Intake Visit Reasons: est ob 10 weeks Chief Complaint: est ob Utility Pipe Layer Required: No Is patient in pain?: No Allergies No Known Allergies Allergy (Verified 12/15/17 15:49) Medications NK [NK] 11/18/17 [History Confirmed 12/15/17] Last Menstral Period: 09/22/17 Zika: Zika virus screening: Negative : No PFSH PFSH Medical History PCOS (polycystic ovarian syndrome) (Chronic) Asthma (Chronic) Social History Smoking Status: Former smoker alcohol intake: never substance use type: does not use caffeine: Yes what type of physical activity do you participate in: none seatbelt use: always do you feel safe at home: Yes 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: Bromqbjtt-Icjfseb-Sjjlvij 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 OB Visit LORETTA Calculator Estimated Delivery Date 06/29/18 Based on LMP (certain) 09/22/17 Current WG 12w 0d Number 1 Expected Delivery Route/Plan Specific Issue/Plans flu vaccine: [] minichart given: [] tdap vaccine: [] rhogam: [] LARC form signed: [] labor support person: [] pain management: [] cut cord/dad catch: [] : [] PP control planned: [] special requests: [] Initial Weight: 241 lb Date Weight BP Urine PFHR FuHt Pres MCTX DilatioFetal SVisit NProvideComment rot ov n t ote r s EGA Ef Gluco faced se 11/18/1240 lb 134/78 8 (+0 oz) 8w 1d Visit Notes Visit Date: 12/15/17 no vb cramping. has had decreased appetite.. Gricel Modi MD on 12/15/17 Visit Date: 11/18/17 No visit notes to display ACOG First Trimester First Trimester: Desire for , Alcohol, Tobacco Cessation, Illicit/Recreational Drug/Substance Use, Intimate Partner Violence, Barriers to care, Unstable Housing, Communication Barriers, Environmental/Work Hazards, Anticipated Course of Care, Toxoplasmosis Precations, Use of Any medications, Sexual activity, Exercise, Dental Care, Sauna/Hot tub use, Seat Belt use, Childbirth classes/Hospital facilities, , Travel, Indications for US and Screening for Aneuploidy Diagnostics Diagnostics Labs Blood Type A POSITIVE 11/18/17 Antibody Screen NEGATIVE 11/18/17 Hct 36.5 % (37-47) L 11/18/17 Hgb 12.4 g/dl (12.0-15.0) 11/18/17 Obstetrics Ultrasound 11/27/17 Rubella IgG Antibody 12.8 IU/mL 11/18/17 RPR NONREACTIVE (NONREACTIVE) 11/18/17 Hep Bs Antigen Negative (Negative) 11/18/17 Chlam trachomat DNA PCR Negative (Negative) 11/18/17 N.gonorrhoeae DNA (PCR) Negative (Negative) 11/18/17 Glucose 1 Hr 50 gm 107 mg/dL (70-140) 11/18/17 Details: HIV: Urine Culture: Sequential Screen: NIPT Screen: ROS Const Denies fever(s) GI Denies abdominal pain, Reports as per HPI Denies vaginal discharge, Denies abnormal vaginal bleeding, Reports as per HPI Exam Const General: healthy appearing, comfortable, no acute distress GI Inspection: normal to inspection Palpation: soft, nontender Assessment AND Plan Problems 1. Encounter for supervision of normal first in first trimester Z34.01 PRR LORETTA 07/14/18 boyfriend Octavio 2. PCOS (polycystic ovarian syndrome) E28.2 3. Mild intermittent asthma without complication J45.20 4. Irregular menses N92.6 dating us ordered- likely due first week of july 5. ASCUS of cervix with negative high risk HPV R87.610 pap due 11/2018 Plan Orders placed: mfm consult nt screening ACOG trimester education reviewed and updated. see problem list details for updated plan management information. [place] appropriate handout given. Orders Orders: Coding Level of Care Code Off vis,est,level 3 Diagnoses Encounter for supervision of normal first in first trimester Z34.01 Normal : normal first Trimester: first trimester PCOS (polycystic ovarian syndrome) E28.2 Mild intermittent asthma without complication J45.20 Asthma severity: mild Asthma persistence: intermittent Asthma complication type: uncomplicated Irregular menses N92.6 ASCUS of cervix with negative high risk HPV R87.610 12/15/17 1608 <Electronically signed by Gricel Modi MD> Date Gricel Modi MD Cosigner Signature: Date (if applicable) CC: INIT OB < 14WKS US Observed: 11/27/2017 Status: F Source: [facility] 2:49 PM [facility] REPOSITORY [facility] Imaging Services [address] [place] [address] Init OB < 14Wks US MR#: [id number] Acct: [id number] Name: SHAKIRA RAMOS Rep #: [id number] : 1995 F 22 From: Otis Kumar MD PCP: Rena Gamino MD Status: REG CLI Study: Init OB < 14Wks US Date of Exam: 11/27/17 Exam# [id number] Ordering Dr: Gricel Modi MD STUDY: FIRST TRIMESTER OBSTETRICAL ULTRASOUND REASON FOR EXAM: Female, 22 years old. Dating. LMP: 09/22/2017 TECHNIQUE: Transabdominal and Transvaginal PRIOR ULTRASOUND: None. FINDINGS: There is visualization of a single gestational sac in a normal intrauterine position. The mean sac diameter (MSD) measures 2.1 cm, indicating an estimated gestational age (EGA) of 7 weeks, 1 days. The gestational sac shape is within normal limits. There is a visualized yolk sac. The yolk sac measures 5 mm. The placenta is non-visualized. There is visualization of a live embryo. The crown-rump length (CRL) measures 1.2 cm, indicating an estimated gestational age (EGA) of 7 weeks, 3 days. There is demonstrated cardiac activity with a heart rate of 141 bpm. The estimated gestation age (EGA) by LMP is 9 weeks, 3 days. The estimated date of delivery (LORETTA) by LMP is 06/29/2018. The estimated gestation age (EGA) by US is 7 weeks, 2 days. The estimated date of delivery (LORETTA) by US is 07/14/2018. The uterus measures 8.9 x 6.7 x 5.0 cm. There is no demonstrated uterine fibroid. The cervix is closed. The right ovary measures 4.4 x 2.2 x 1.8 cm. There is no right ovarian cyst. There is no visualized right adnexal mass or complex lesion. The left ovary measures 3.9 x 2.7 x 2.3 cm. There is a 2 cm cyst. There is no visualized left adnexal mass or complex lesion. There is no fluid in the cul de sac. US/Init OB < 14Wks US IMPRESSION: Single live intrauterine gestation with ultrasound EGA of 7 weeks 2 days. Electronically Signed: Otis Kumar MD at 16:20 EDT , Service support , CC: Rena Gamino MD; Gricel Modi MD Marketing Ambassador: Signed HISTOLOGIC AIDE OFFICE VISIT Observed: 11/22/2017 Status: F Source: DAVID REPORT 3:[address] [facility] [address] [place] [address] OFFICE VISIT Date of Service: 11/18/17 MR#: [id number] Acct: [id number] Name: SHAKIRA RAMOS Rep #: [id number] : 1995 Provider: Gricel Modi MD Age/Sex: 22/F Location[place] [facility] Status: Signed Intake Vital Signs11/18/17 Height 5 ft 7 in 11/18/17 Weight: 241 lb 11/18/17 Body Mass Index (BMI) 37.7 11/18/17 Blood Pressure 134/78 Intake Visit Reasons: NOB - LMP 09/22 Utility Pipe Layer Required: No Accompanied by: boyfriend Is patient in pain?: No Allergies No Known Allergies Allergy (Verified 11/18/17 16:50) Medications NK [NK] 11/18/17 [History Confirmed 11/18/17] Last Menstral Period: 09/22/17 Zika: Zika virus screening: Negative : No PFSH PFSH Medical History PCOS (polycystic ovarian syndrome) (Chronic) Asthma (Chronic) Social History Smoking Status: Former smoker alcohol intake: never substance use type: does not use caffeine: Yes what type of physical activity do you participate in: none seatbelt use: always do you feel safe at home: Yes 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: Xzgcompsz-Xckpyoq-Rxclesp 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 OB Visit LORETTA Calculator Estimated Delivery Date 06/29/18 Based on LMP (certain) 09/22/17 Current WG 8w 5d Number 1 Comments: unable to measure- recommend viability us in 7-10 days Expected Delivery Route/Plan Specific Issue/Plans flu vaccine: [] minichart given: [] tdap vaccine: [] rhogam: [] LARC form signed: [] labor support person: [] pain management: [] cut cord/dad catch: [] : [] PP control planned: [] special requests: [] Initial Weight: 241 lb Date Weight BP Urine PrFHR FuHt Pres MoCTX DilationFetal StVisit NoProviderComments E ot v te GA G Effac lucose ed Menstrual History Last Menstral Period: 09/22/17 Reported LMP: definite Normal amount/duration: Yes On hormonal BC at conception: No Antepartum Record Genetic Screening: Congenital Heart Defect: Other, Neural Tube Defect: Other, Hemoglobinopathy Or Carrier: Other, Cystic Fibrosis: Other, Chromosome Abnormality: Other, Elkin-Sachs: Other, Hemophilia: Other, Intellectual Disability/Autism: Other, Recurrent Loss/Stillbirth: Other, Other Structural Defect: Other, Other Genetic Disease: Other, Maternal Metabolic Disorder: Other Infection History: Live with someone with TB or Exposed to TB: No, Patient or Partner has history of Genital Herpes: No, Rash or Viral illness since last mentrual period: No, Prior GBS-Infected child: No, History of STD: No, HIV Infection: No, History of Hepatitis: No, Recent travel outside of [place]: No, Concern for Hep exposure: No, Varicella immune: Yes Medical History Medical History: Positive: Pulmonary (e.g.,TB,Asthma), Negative: Diabetes, Hypertension, Heart disease, Auto-immune disorder, Kidney disease/UTI, Neurologic/epilepsy, Psychiatric, Depression/ depression, Hepatitis/liver disease, Varicosities/phlebitis, Thyroid dysfunction, Trauma/domestic violence, History of blood transfusions, D (Rh) Sensitized, Seasonal allergies, Drug/latex allergies/reactions, Breast, [employer] surgery, Operations/hospitalizations, Anesthetic complications, History of abnormal pap, Uterine anomaly/yonny, Infertility, Anti-retroviral treatment, Relevant family history, Other ACOG First Trimester First Trimester: Desire for , Alcohol, Tobacco Cessation, Illicit/Recreational Drug/Substance Use, Intimate Partner Violence, Barriers to care, Unstable Housing, Communication Barriers, Environmental/Work Hazards, Anticipated Course of Care, Nurtrition and weight gain, Toxoplasmosis Precations, Use of Any medications, Sexual activity, Exercise, Dental Care, Sauna/Hot tub use, Seat Belt use, Childbirth classes/Hospital facilities, , Travel, Indications for [place] and Screening for Aneuploidy ROS Const Denies fever(s), Reports system reviewed and no additional complaints, except as docu, Reports fatigue Eyes Reports system reviewed and no additional complaints, except as docu ENT Reports system reviewed and no additional complaints, except as docu Card Denies chest pain, Denies shortness of breath Resp Reports system reviewed and no additional complaints, except as docu, Denies shortness of breath, Denies cough GI Reports nausea, Denies abdominal pain Reports system reviewed and no additional complaints, except as docu Musc Reports system reviewed and no additional complaints, except as docu Skin/Breast Reports system reviewed and no additional complaints, except as docu Neuro Yes system reviewed and no additional complaints, except as docu Psych Reports system reviewed and no additional complaints, except as docu Endo Reports fatigue, Reports system reviewed and no additional complaints, except as docu Exam Const General: healthy appearing, comfortable, no acute distress Orientation: alert [facility] Head: normal to inspection, atraumatic, normocephalic Ears: external ears normal, hearing grossly normal bilaterally Nose: nares normal, external nose normal Mouth: oral mucosae normal Teeth and gingiva: dentition normal Eyes General: appearance normal, both eyes and all related structures Neck Neck: no lymphadenopathy, supple, normal visual inspection Thyroid: thyroid normal Chest Chest palpation AND inspection: normal inspection of the chest Breast inspection: normal inspection of the breasts, normal inspection of the axillae Breast palpation: normal palpation of the breasts, normal palpation of the axillae Resp Effort AND Inspection: normal respiratory effort GI Inspection: normal to inspection Palpation: soft, no hepatosplenomegaly General: bladder normal to palpation External Female Exam: normal external appearance, normal appearance of the urethra Urethra: normal appearance of the urethra Speculum Exam - Vagina: normal appearance of the vagina, normal vaginal discharge Speculum Exam - Cervix: normal appearance of the cervix Bimanual Exam- Vagina AND Uterus: bladder normal to palpation, normal bimanual exam, uterus non-tender, other Bimanual Exam- Adnexa, other: adnexae non-tender Skin General: no rashes or lesions noted Neuro Motor: muscle tone normal throughout, no movement abnormalities noted Extrem General: normal to inspection, full ROM Assessment AND Plan Problems 1. PCOS (polycystic ovarian syndrome) E28.2 2. Irregular menses N92.6 dating us ordered- likely due first week of july 3. Encounter for supervision of normal first in first trimester Z34.01 LORETTA boyfriend Octavio 4. Mild intermittent asthma without complication J45.20 Plan Patient oriented to practice and discussed care expectations and screenings. ACOG book offered to patient. labs and 19-20 week anatomy ultrasound ordered. see problem list details for plan information. Genetic screening offered to patient and patient chose: deciding recommend viability dating us next week Orders Orders: Supplemental Info ACOG book given and patient encouraged to read about nutrition, exercise, weight gain, and food avoidance in . Coding Level of Care Code Off vis,new,level 4 Diagnoses PCOS (polycystic ovarian syndrome) E28.2 Irregular menses N92.6 Encounter for supervision of normal first in first trimester Z34.01 Normal : normal first Trimester: first trimester Mild intermittent asthma without complication J45.20 Asthma severity: mild Asthma persistence: intermittent Asthma complication type: uncomplicated 11/22/17 0358 <Electronically signed by Gricel Modi MD> Date Gricel Modi MD Cosigner Signature: Date (if applicable) CC: CBC W/DIFF, AUTOMATED Collected: 11/18/2017 Status: F Source: DAVID 6:01 PM [facility] REPOSITORY TYPE CODE TESTS RESULT OUT OF RANGE REFERENCE UNITS LAB L100.1000 4.4-11.0 K/mm3 Normal WBC 8.9 LAB L100.1200 4.2-5.4 M/mm3 Normal RBC 4.48 LAB L100.1300 12.0-15.0 g/dl Normal HGB 12.4 LAB L100.1400 37-47 % Low HCT 36.5 LAB L100.1500 81-99 fL Normal MCV 81.5 LAB L100.1600 27.0-32.0 pg Normal MCH 27.7 LAB L100.1700 32-36 g/gl Normal MCHC 34.0 LAB L100.1810 11.6-14.6 % Normal RDW CV 12.9 LAB L100.1820 35.1-43.9 fl Normal RDW SD 38.2 LAB L100.1900 150-450 K/mm3 Normal PLT 272 LAB L100.2000 6.2-12.0 fl Normal MPV 9.0 LAB L100.2100 47-70 % Normal NEUT% 65.9 LAB L100.2200 19-41 % Normal LY% 25.6 LAB L100.2300 0-10 % Normal MONO% 6.5 LAB L100.2400 0-5 % Normal EO% 1.5 LAB L100.2500 0-1 % Normal BASO% 0.2 LAB L100.2550 0.0-0.9 % Normal IM GRAN % 0.300 Result Comment: IG% - Immature Granulocytes (promyelocytes, myelocytes and metamyelocytes) > 1% indicates that a LEFT SHIFT is Present. LAB L100.2620 2.0-7.7 X10 3/uL Normal Absolute Neut 5.9 LAB L100.2720 0.83-4.51 X10 3/ul Normal Absolute Lymph 2.28 Performed By: #### L100.0100, B101.7450 #### [facility] [address] [place], [address] #### L3100.0390 #### [facility] (refer to report for specific site) refer to report for address and phone number TYPE AND SCREEN Collected: 11/18/2017 Status: F Source: [place] 6:01 PM [facility] REPOSITORY Order Comment: Reason for Type AND Screen/Red Cells: TYPE CODE TESTS RESULT OUT OF RANGE REFERENCE UNITS LAB B10.0800 A Normal BLOOD TYPE GEL POSITIVE LAB B100.4000 Normal Antibody NEGATIVE Screen Performed By: #### L100.0100, B101.7450 #### [facility] [address] [facility] [place], [address] #### L3100.0390 #### [facility] (refer to report for specific site) refer to report for address and phone number HEPATITIS B SURFACE Collected: 11/18/2017 Status: F Source: [place] AG 6:01 PM [facility] REPOSITORY TYPE CODE TESTS RESULT OUT OF RANGE REFERENCE UNITS LAB L3100.0400 Negative Normal HB Negative SURF AG Result Comment: Performed at: - [facility] [address] [place] [id number] Wastewater Supervisor: Froilan Collier PhD, Phone: [phone] Performed By: #### L100.0100, B101.7450 #### [facility] [address] [place], [address] #### L3100.0390 #### [facility] (refer to report for specific site) refer to report for address and phone number GLUCOSE CHALLENGE GEST Collected: 11/18/2017 Status: F Source: [place] 1H 50G 6:01 PM [facility] REPOSITORY TYPE CODE TESTS RESULT OUT OF RANGE REFERENCE UNITS LAB L501.0250 70-140 mg/dL Normal GLU GEST 107 50g 1H Performed By: #### L501.0250, L8200.1999 #### [facility] [address] [place], [place], [id number] CT/NG WCH BY PCR Collected: 11/18/2017 Status: F Source: [place] 6:01 [facility] REPOSITORY TYPE CODE TESTS RESULT OUT OF RANGE REFERENCE UNITS LAB L8200.2100 Negative Normal Chlam Negative Trac PCR LAB L8200.2200 Negative Normal NG by Negative PCR Performed By: #### L501.0250, L8200.1999 #### [facility] [address] [place], [address] RUBELLA IGG Collected: 11/18/2017 Status: F Source: [place] 6:01 PM [facility] REPOSITORY TYPE CODE TESTS RESULT OUT OF RANGE REFERENCE UNITS LAB L509.4000 IU/mL Normal Rubella IgG 12.8 Result Comment: Antibody results Interpretation of Immune Status < 5 IU/ml Presumed Non-immune 5 - < 10 IU/ml Equivocal > or = 10 IU/ml Presumed Immune Performed By: #### L509.4000, L3890.6005, M100.0650, L700.5000 #### [facility] [address] [place], [place], [id number] HIV - W[facility] Collected: 11/18/2017 Status: F Source: [place] 6:01 PM [facility] REPOSITORY TYPE CODE TESTS RESULT OUT OF RANGE REFERENCE UNITS LAB L3890.6005 Nonreactive Normal HIV - [facility] Non-Reactive Performed By: #### L509.4000, L3890.6005, M100.0650, L700.5000 #### [facility] [address] [place], [address] Observed: 11/18/2017 Status: F Source: DAVID CULTURE, URINE 6:01 PM [facility] REPOSITORY Urine Culture ORGANISM 1: Mixed Gram Positive Organisms Campus Count >100,000 MIX CULTURE Mixed contaminants. Submit a new specimen if indicated. Performed By: #### L509.4000, L3890.6005, M100.0650, L700.5000 #### [facility] [address] [place], [address] RAPID PLASMIN REAGIN Collected: 11/18/2017 Status: F Source: DAVID (RPR) 6:01 PM [facility] REPOSITORY TYPE CODE TESTS RESULT OUT OF REFERENCE UNITS RANGE LAB L700.5000 NONREACTIVE NONREACTIVE Normal RPR Performed By: #### L509.4000, L3890.6005, M100.0650, L700.5000 #### [facility] [address] [place], [address] PAP I-G W/RFX Collected: 11/18/2017 Status: F Source: DAVID HRHPV-APTIMA 6:01 PM [facility] REPOSITORY Order Comment: CYTOLOGY INFORMATION: - CLINICAL INFORMATION: HYSTERECTOMY - DATE LMP/MENOPAUSE: LMP - COLLECTION VIAL: Thin Prep Vial - JOCKEY ROOM CUSTODIAN SOURCE: CERVICAL - COLLECTION TECHNIQUE: CX BROOM ONLY Specimen Comment: [id number] Specimen Comment: No. of containers..01 ThinPrep Vial TYPE CODE TESTS RESULT OUT OF REFERENCE UNITS RANGE LAB L7400.0800 . High DIAGN Comment Result Comment: EPITHELIAL CELL ABNORMALITY. ATYPICAL SQUAMOUS CELLS OF UNDETERMINED SIGNIFICANCE. LAB L7400.0900 . Normal ADEQ Comment Result Comment: Satisfactory for evaluation. Endocervical and/or squamous metaplastic cells (endocervical component) are present. LAB L7400.1300 . High RECOMM Comment Result Comment: Suggest follow up as clinically appropriate. LAB L7400.1400 . Normal PERFORM Comment Result Comment: Anamika [employer] (ASCP) LAB L7400.1700 . Normal SIGN Comment Result Comment: Suzanne Mota MD, Pathologist LAB L7400.1720 . Normal Path prov. Comment ICD9 Result Comment: R87.610 LAB L7400.2575 . Normal TEST METHOD Comment Result Comment: This liquid based ThinPrep(R) pap test was screened with the use of an image guided system. LAB L7400.2600 . Normal . COMM LAB L7400.2700 . Normal PAPSMR Comment Result Comment: The Pap smear is a screening test designed to aid in the detection of premalignant and malignant conditions of the uterine cervix. It is not a diagnostic procedure and should not be used as the sole means of detecting cervical cancer. Both false-positive and false-negative reports do occur. LAB L7400.2760 Negative High HPV APTIMA, HR Positive Result Comment: This test detects fourteen high-risk HPV types (16/18/31/33/35/39/45/ 51/52/56/58/59/66/68) without differentiation. Performed at: - [facility] [id number] Wastewater Supervisor: Nai Bui MD, Phone: [phone] Performed at: =G - [facility] [address] [id number] Wastewater Supervisor: Nai Bui MD, Phone: [phone] LAB L7400.0458 . Normal HPV RFLX Comment Result Comment: See below for HPV testing results. Performed By: #### L7400.0353 #### [facility] (refer to report for specific site) refer to report for address and phone number EMERGENCY DEPARTMENT Observed: 07/09/2017 Status: F Source: [place] SUMMARY 11:47 PM [facility] REPOSITORY [facility] Medical Records Department [address] [place] [address] Emergency Department Summary 07/09/17 2329 MR#: [id number] Acct: [id number] Name: SHAKIRA RAMOS Rep #: [id number] : 1995 21 From: Last Castillo DO PCP: Hanny GRANT,Rena Status: REG ER - ER Visit Summary Date of Service: 07/09/17 Chief Complaint: [Sore throat] History of Present Illness: The patient is a 21 F [presents to the emergency department chief complaint of a sore throat for the last 3-4 days. Patient states that about 5 or 6 days ago she developed a cough and body aches and was seen at an urgent care diagnosed with an upper respiratory infection. The following day the patient was seen in the emergency department and diagnosed with upper respiratory infection and possible influenza. Patient states the cough is improved but now the throat is causing her more discomfort. She denies any fevers. Patient denies sick contacts.] Physical Examination: [HEENT-PERRLA, EOMI. Cranial nerves II through XII grossly intact. TMs clear. Mucous membranes moist. Mild anterior cervical lymphadenopathy slightly tender on the left adenopathy. Mild pharyngeal erythema. No exudates noted. Uvula in the midline. No trismus. Cardiovascular-regular rate and rhythm without murmur or ectopy Lungs-clear to auscultation, chest wall stable without crepitus or subcu emphysema Abdomen-normoactive bowel sounds, soft, nontender, no rebound or rigidity, no peritoneal signs. Extremities-intact 4, normal range of motion, normal pulses, atraumatic] Test Results: [Rapid strep screen performed] was negative Emergency Department Course and Treatment: [] Treatment Plan: [Patient advised to use Motrin or Tylenol for discomfort and try saltwater gargles] Disposition: [Discharged home in stable condition. Patient advised to return if difficulty swallowing own secretions high fevers, or condition should worsen in any way.] Impression: [Viral pharyngitis] This note was generated with [employer] dictation software. It may contain incorrect words, spelling, and punctuation that were not noted in review of the chart prior to signing ED Disposition - Plan for ED Patient: Chief Complaint: Sore Throat Referrals: Rena Gamino MD [Primary Care Provider] - What to do if you have Problems For any increased pain, shortness of breath, bleeding, nausea or vomiting, chest pain, or any unexpected problems, contact your Primary Care Provider. Call [facility] ([phone]) or report to the closest Emergency Room. Call 911 if necessary. 07/09/17 4343 <Electronically signed by Last Castillo DO> Date Last Castillo DO Cosigner Signature (If Indicated): Date CC: Rena Gamino MD DISCHARGE INSTRUCTION Observed: 07/09/2017 Status: F Source: DAVID 11:46 PM [facility] REPOSITORY [facility] Medical Records Department [address] [place] [address] Discharge Instruction 07/09/172344 MR#: [id number] Acct: [id number] Name: SHAKIRA RAMOS Rep #: [id number] : 1995 21 From: Last Castillo DO PCP: Rena Gamino MD Status: REG ER ED Disposition - Plan for ED Patient: Chief Complaint: Sore Throat Instructions: ED Pharyngitis Viral Referrals: Rena Gamino MD [Primary Care Provider] - 5-7 Days What to do if you have Problems For any increased pain, shortness of breath, bleeding, nausea or vomiting, chest pain, or any unexpected problems, contact your Primary Care Provider. Call [facility] ([phone]) or report to the closest Emergency Room. Call 911 if necessary. 07/09/172345 <Electronically signed by Last Castillo DO> Date Last Castillo DO Cosigner Signature (If Indicated): Date CC: Rena Gamino MD Observed: 07/09/2017 Status: F Source: DAVID STREP A (THROAT 11:16 PM [facility] RAPID JAVED) REPOSITORY Order Date: 07/09/17 Has pt arrived? Y Strep A Rapid Rapid Strep A Screen NEGATIVE A Disk (Conf. Cult) Negative for Strep Group A : All NEGATIVE screens will be confirmed with a culture. Performed By: #### M100.676 #### [facility] [address] [place], [address] EMERGENCY DEPARTMENT Observed: 07/06/2017 Status: F Source: [place] SUMMARY 5:04 PM [facility] REPOSITORY [facility] Medical Records Department [address] [place] [address] Emergency Department Summary 07/06/17 1622 MR#: [id number] Acct: [id number] Name: SHAKIRA RAMOS Rep #: [id number] : 1995 21 From: Penny Rodriguez MD PCP: Rena Gamino MD Status: REG ER - ER Visit Summary Date of Service: 07/06/17 Chief Complaint: [] Runny nose harsh cough for about a week asthma History of Present Illness: The patient is a 21 F [] those symptoms for about 1 week she has been seen by urgent care she is on prednisone taper she reports the cough is still very harsh generally dry nonproductive her nose is running. She was not tested for the flu but she was tested for strep throat negative. She has her inhalers at home when she reports her asthma is generally stable she is doing fine with it is just the coughing Physical Examination: [] Here her nose is congested her throat is clear her lungs sound clear heart tones are normal abdomen soft nontender upper lower extremities unremarkable she is resting comfortably bed she has no major cough now Test Results: [] Emergency Department Course and Treatment: [] Explained to patient we could do a chest x-ray she declined that her main issue is the cough, I will treat her with Kenalog IM, Tylenol No. 3 as a cough suppressant, Flonase to help with the rhinorrhea she has all of her other asthma meds at home she is would benefit from one day off work and she will follow with her doctors the next few days return for change in symptoms Treatment Plan: [] Disposition: [] Home stable Impression: [] URI with harsh cough exacerbation of asthma This note was generated with [employer] software. It may contain incorrect words, spelling, and punctuation that were not noted in review of the chart prior to signing ED Disposition - Plan for ED Patient: Chief Complaint: Cold Sx Referrals: Rena Gamino MD [Primary Care Provider] - What to do if you have Problems For any increased pain, shortness of breath, bleeding, nausea or vomiting, chest pain, or any unexpected problems, contact your Primary Care Provider. Call [facility] ([phone]) or report to the closest Emergency Room. Call 911 if necessary. 07/06/17 1704 <Electronically signed by Penny Rodriguez MD> Date Penny Rodriguez MD Cosigner Signature (If Indicated): Date CC: Rena Gamino MD DISCHARGE INSTRUCTION Observed: 07/06/2017 Status: F Source: [place] 4:27 PM [facility] REPOSITORY [facility] Medical Records Department [address] [place] [address] Discharge Instruction 07/06/17 1624 MR#: [id number] Acct: [id number] Name: SHAKIRA RAMOS Rep #: [id number] : 1995 21 From: Penny Rodriguez MD PCP: Rena Gamino MD Status: REG ER ED Disposition - Plan for ED Patient: Chief Complaint: Cold Sx Instructions: ED Upper Resp Infec No Abx Tx, ED Flu Prescriptions: Acetaminophen/Codeine #3 [Tylenol #3 Tablet] 1 tab PO QHS #10 tab Fluticasone 0.05% [Flonase Nasal [place]] 1 spray NASAL BID #1 nasal.sry Referrals: Rena Gamino MD [Primary Care Provider] - What to do if you have Problems For any increased pain, shortness of breath, bleeding, nausea or vomiting, chest pain, or any unexpected problems, contact your Primary Care Provider. Call [facility] ([phone]) or report to the closest Emergency Room. Call 911 if necessary. 07/06/17 1627 <Electronically signed by Penny Rodriguez MD> Date Penny Rodriguez MD Cosigner Signature (If Indicated): Date CC: Rena Gamino MD ALLERGIES ALLERGIES DATE TYPE / CODE NAME / CODE REACTION SEVERITY SOURCE 06/30/2018 Drug shellfish Anaphylaxis Unknown [place] Allergy/416 derived/[id number] [facility] 810445[facility] Repository 06/22/2018 Drug No Known Unknown [place] Allergy/416 Allergies/J75438 [facility] 910815(SN 0388([facility] Repository Drug NO KNOWN [facility] Class/02850 ALLERGIES [facility] [place] 1003(SNOMED Repository CT) ENCOUNTERS ENCOUNTERS ADMIT/DISCHARGE ACCOUNT NUMBER ADMITTING ENCOUNTER LOCATION SOURCE CLASS 06/30/2018/06/30/19 [id number] Ambulatory BMSBuilding: [place] 19 BMS[facility] Repository 06/28/2018/06/29/19 [id number] Ambulatory [address] [place] Repository 06/26/2018/06/26/19 [id number] Ambulatory [address] ding:WPOUTRo Repository om: [id number] 06/23/2018 [id number] Ambulatory BMSBuilding: [place] BMS.[facility] Repository 06/22/2018 [id number] Ambulatory [facility] ding:LABSPEC Repository 06/22/2018/06/22/19 [id number] Ambulatory [address] ding:WPOUTRo Repository om: [id number] 06/22/2018/06/22/19 [id number] Ambulatory BMSBuilding: [place] 19 BMS[facility] Repository 06/08/2018/06/08/20 [id number] Ambulatory BMSBuilding: [place] 18 BMS[facility] Repository 06/04/2018/06/04/20 [id number] Ambulatory BMSBuilding: [place] 18 BMS[facility] Repository 05/25/2018/05/25/20 [id number] Ambulatory BMSBuilding: [place] 18 BMS[facility] Repository 05/18/2018/05/18/20 [id number] Ambulatory BMSBuilding: [place] 18 BMS[facility] Repository 05/04/2018/05/04/20 [id number] Ambulatory BMSBuilding: [place] 18 BMS[facility] Repository 04/23/2018/04/23/20 [id number] Ambulatory [address] Repository 04/16/2018 [id number] Ambulatory [facility] ding:LAB Repository 04/16/2018/04/16/20 [id number] Ambulatory BMSBuilding: [place] 18 BMS[facility] Repository 04/16/2018 [id number] Ambulatory BMSBuilding: [place] BMS[facility] Repository 04/14/2018/04/15/20 [id number] Ambulatory [address] Repository 04/06/2018/04/06/20 [id number] Ambulatory BMSBuilding: [place] 18 BMS[facility] Repository 03/09/2018 [id number] Ambulatory [facility] ding:LAB Repository 03/09/2018/03/09/20 [id number] Ambulatory BMSBuilding: [place] 18 BMS[facility] Repository 02/27/2018 [id number] Ambulatory [facility] ding:US Repository 02/16/2018/02/17/20 [id number] Ambulatory BMSBuilding: [place] 18 BMS[facility] Repository 02/02/2018 [id number] Ambulatory [facility] ding:OPUS Repository 01/12/2018/01/13/20 [id number] Ambulatory BMSBuilding: [place] 18 BMS[facility] Repository 12/15/2017/12/16/19 [id number] Ambulatory BMSBuilding: [place] 18 BMS[facility] Repository 11/27/2017 [id number] Ambulatory [facility] ding:OPUS Repository 11/18/2017 [id number] Ambulatory [facility] ding:LAB Repository 11/18/2017/11/19/19 [id number] Ambulatory BMSBuilding: David [facility] Repository 07/14/2017/07/14/19 [id number] Emergency BBuilding:ER [address] Repository 07/09/2017/07/09/19 [id number] Emergency [address] ding:ED Repository 07/06/2017/07/06/19 [id number] Emergency [address] ding:ED Repository PAYERS PAYERS ENCOUNTER GUARANTOR PAYER SUBSCRIBER SOURCE 06/30/2018 SHAKIRA N Primary SHAKIRA N David [id number] E Insurance:[facility]: [facility] [id number] [address]Pff: PLANPolicy Number: Repository [id number] () Date:9207-24-67WK [address] [address]CR: 06/30/2018 Secondary NOT GIVENUNK David Insurance:SELF PAY [facility] Number: Effective Repository Date:2018-06-30 06/26/2018 SHAKIRA N Primary SHAKIRA N [place] [id number] E Insurance:[facility]: [facility] [id number] Hospital [address]Iyl: PLANPolicy Number: Repository [id number] (HP) Date:7497-68-61WZ [address] [place] [address] 73273FM: 06/26/2018 Secondary NOT GIVENUNK [place] Insurance:SELF PAY [facility] Number: Effective Repository Date:2018-06-26 06/23/2018 SHAKIRA N Primary NOT GIVENUNK David [id number] E Insurance:SELF PAY [facility] [address]Ydi: Number: Effective Repository Date:2018-06-23 () 06/22/2018 SHAKIRA N Primary SHAKIRA N David [id number] E Insurance:BUCKEYE BRIGHTB: [facility] [id number] [place] [address]Dfa: PLANPolicy Number: Repository [id number] (HP) Date:0810-80-67OL [address] [place] [address] 16663NL: 06/22/2018 Secondary NOT GIVENUNK David Insurance:SELF PAY [facility] Number: Effective Repository Date:2018-06-22 06/22/2018 SHAKIRA N Primary SHAKIRA N [place] [id number] E Insurance:[facility]: [facility] [id number] [place] [address]Zzo: PLANPolicy Number: Repository [id number] (HP) Date:5208-83-90ZI [address] [place] [address] 07563ST: 06/22/2018 Secondary NOT GIVENUNK David Insurance:SELF PAY [facility] Number: Effective Repository Date:2018-06-22 06/22/2018 SHAKIRA N Primary SHAKIRA N David [id number] E Insurance:[facility]: [facility] [id number] [place] [address]Tyl: PLANPolicy Number: Repository [id number] (HP) Date:2017-26-34YP [address] [place] [address] 69392XC: 06/22/2018 Secondary NOT GIVENUNK David Insurance:SELF PAY [facility] Number: Effective Repository Date:2018-06-22 06/08/2018 SHAKIRA N Primary SHAKIRA N [place] [id number] E Insurance:[facility]IGHT[facility]: [facility] [id number] [place] [address]Qom: PLANPolicy Number: Repository [id number] (HP) Date:5654-62-34TE [address] [place] [address] 02342AI: 06/08/2018 Secondary NOT GIVENUNK David Insurance:SELF PAY [facility] Number: Effective Repository Date:2018-06-08 06/04/2018 SHAKIRA N Primary SHAKIRA N David [id number] E Insurance:BUCKEYE CURTISDOB: [facility] [id number] [place] [address]Isb: PLANPolicy Number: Repository [id number] (HP) Date:3341-94-21MT [address] [place] [address] 94388KX: 06/04/2018 Secondary NOT GIVENUNK [place] Insurance:SELF PAY [facility] Number: Effective Repository Date:2018-06-04 05/25/2018 SHAKIRA N Primary SHAKIRA N David [id number] E Insurance:BUCKEYE CURTISDOB: [facility] [id number] [place] [address]Ido: PLANPolicy Number: Repository [id number] (HP) Date:1016-40-35DF [address] [place] [address] 35817EX: 05/25/2018 Secondary NOT GIVENUNK David Insurance:SELF PAY [facility] Number: Effective Repository Date:2018-05-25 05/18/2018 SHAKIRA N Primary SHAKIRA N David [id number] E Insurance:BUCKEYE CURTISDOB: [facility] [id number] [place] [address]Oek: PLANPolicy Number: Repository [id number] (HP) Date:2589-35-44TT [address] [place] [address] 09602EF: 05/18/2018 Secondary NOT GIVENUNK David Insurance:SELF PAY [facility] Number: Effective Repository Date:2018-05-14 05/04/2018 SHAKIRA N Primary SHAKIRA N [place] [id number] E Insurance:DAMASOEYE CURTISDOB: [facility] [id number] Hospital [address]Lpz: PLANPolicy Number: Repository [id number] (HP) Date:7396-39-13UY [address] [place] [address] 20196VA: 05/04/2018 Secondary NOT GIVENUNK David Insurance:SELF PAY [facility] Number: Effective Repository Date:2018-05-01 04/16/2018 SHAKIRA N Primary SHAKIRA N David [id number] E Insurance:WALLACEE MATTHIASB: [facility] [id number] Hospital [address]Wvt: PLANPolicy Number: Repository [id number] (HP) Date:2378-75-28XO [address] [place] [address] 80177GN: 04/16/2018 Secondary NOT GIVENUNK [place] Insurance:SELF PAY [facility] Number: Effective Repository Date:2018-04-16 04/16/2018 SHAKIRA N Primary SHAKIRA N [place] [id number] E Insurance:CARESOURCE AMTTHIASB: [facility] [id number] [place] [address]Oyd: Number: Repository [id number] (HP) Date:1071-47-78DM [address] [place] [address]ZU: 04/16/2018 Secondary SHAKIRA N [place] Insurance:DAMASOEYE [facility]: [facility] [id number] Hospital PLANPolicy Number: Repository [id number] Date:4364-97-71GU [address] [place] [address] 41006CQ: 04/16/2018 Tertiary NOT GIVENUNK David Insurance:SELF PAY [facility] Number: Effective Repository Date:2018-04-16 04/16/2018 SHAKIRA N Primary SHAKIRA N David [id number] E Insurance:CARESOURCE MATTHIASB: [facility] [id number] Hospital [address]Kfr: Number: Repository [id number] (HP) Date:1254-10-45WU [facility] [address] [place] [address]JN: 04/16/2018 Secondary NOT GIVENUNK [place] Insurance:SELF PAY [facility] Number: Effective Repository Date:2017-11-18 04/06/2018 SHAKIRA N Primary SHAKIRA N [place] [id number] E Insurance:[facility]E [facility]ISMA[facility]: [facility] [id number] [place] [address]Xjq: PLANPolicy Number: Repository [id number] (HP) Date:1445-07-39DR [address] [address]RW: 04/06/2018 Secondary NOT GIVENUNK David Insurance:SELF PAY [facility] Number: Effective Repository Date:2018-03-18 03/09/2018 SHAKIRA N Primary SHAKIRA N David [id number] E Insurance:[facility]E CUR[facility]ISMA[facility]: [facility] [id number] [place] [address]Shx: PLANPolicy Number: Repository [id number] (HP) Date:0380-96-72AV [address] [address]VS: 03/09/2018 Secondary NOT GIVENUNK David Insurance:SELF PAY [facility] Number: Effective Repository Date:2018-03-09 03/09/2018 SHAKIRA N Primary SHAKIRA N [place] [id number] E Insurance:BUCKEYE BRIGHTDO: [facility] [id number] [place] [address]Yfz: PLANPolicy Number: Repository [id number] (HP) Date:5770-47-80ZR [address] [address]JK: 03/09/2018 Secondary NOT GIVENUNK [place] Insurance:SELF PAY [facility] Number: Effective Repository Date:2018-02-23 02/27/2018 SHAKIRA N Primary SHAKIRA N David [id number] E Insurance:CARESOURCE BRIGHTDOB: [facility] [id number] [place] [address]Qya: Number: Repository [id number] (HP) Date:2082-73-50PG [address] [address]CF: 02/27/2018 Secondary NOT GIVENUNK [place] Insurance:SELF PAY [facility] Number: Effective Repository Date:2018-02-16 02/16/2018 SHAKIRA N Primary SHAKIRA N David [id number] E Insurance:CARESOURCE BRIGHTDOB: [facility] [id number] [place] [address]Zck: Number: Repository [id number] (HP) Date:4729-26-64RG [address] [address]LL: 02/16/2018 Secondary SHAKIRA N David Insurance:[place] BRIGHTDOB: [facility] [id number] [facility] Number: Repository [id number] Date:0439-98-06RV [address] [address]MF: 02/16/2018 Tertiary NOT GIVENUNK [place] Insurance:SELF PAY [facility] Number: Effective Repository Date:2018-02-10 02/02/2018 SHAKIRA N Primary SHAKIRA N David [id number] E Insurance:CARESOURCE BRIGHTDOB: [facility] [id number] Hospital [address]Opr: Number: Repository [id number] (HP) Date:8705-30-62CX [address] [place] [address]QK: 02/02/2018 Secondary SHAKIRA N David Insurance:ASH RIZZOB: [facility] [id number] Hospital [facility]Pol[facility] Number: Repository [id number] Date:0503-26-22MH [address] [place] [address] 715[address]TT: 02/02/2018 Tertiary NOT GIVENUNK [place] Insurance:SELF PAY [facility] Number: Effective Repository Date:2018-01-12 01/12/2018 SHAKIRA N Primary SHAKIRA N David [id number] E Insurance:CARESOURCE BRIGHTDOB: [facility] [id number] [place] [address]Jge: Number: Repository [id number] (HP) Date:3281-29-32UU [address] [address]XO: 01/12/2018 Secondary SHAKIRA N [place] Insurance:ASH RIZZOB: [facility] [id number] [facility] Number: Repository [id number] Date:3728-85-43WB [address] [place] [address]UO: 01/12/2018 Tertiary NOT GIVENUNK [place] Insurance:SELF PAY [facility] Number: Effective Repository Date:2018-01-12 12/15/2017 SHAKIRA N Primary SHAKIRA N David [id number] E Insurance:CARESOURCE BRIGHTDOB: [facility] [id number] [place] [address]Rnc: Number: Repository [id number] (HP) Date:5854-63-54DS [facility] [address] [place] [address]XA: 12/15/2017 Secondary SHAKIRA N [place] Insurance:BUCKEYE BRIGHTDOB: [facility] [id number] [facility] Number: Repository [id number] Date:9669-24-85QZ [address] [place] [address] 46754JO: 12/15/2017 Tertiary NOT GIVENUNK David Insurance:SELF PAY [facility] Number: Effective Repository Date:2017-12-15 11/27/2017 SHAKIRA N Primary SHAKIRA N [place] [id number] E Insurance:CARESOURCE BRIGHTDOB: [facility] [id number] Hospital [address]Vop: Number: Repository [id number] (HP) Date:1464-32-79TP [address] [address]JS: 11/27/2017 Secondary NOT GIVENUNK [place] Insurance:SELF PAY [facility] Number: Effective Repository Date:2017-11-19 11/18/2017 SHAKIRA N Primary SHAKIRA N David [id number] E Insurance:CARESOURCE BRIGHTDOB: [facility] [id number] Hospital [address]Fvl: Number: Repository [id number] (HP) Date:5182-22-56RB [address] [address]IL: 11/18/2017 Secondary NOT GIVENUNK [place] Insurance:SELF PAY [facility] Number: Effective Repository Date:2017-11-18 11/18/2017 SHAKIRA [id number] Primary SHAKIRA [place] Insurance:CARESOURCE BRIGHTDOB: [facility] [id number] Hospital [address]Psp: (330) Number: Repository [phone] () [id number] Date:1962-13-58OP [address] [address]WO: 11/18/2017 Secondary NOT GIVENUNK [place] Insurance:SELF PAY [facility] Number: Effective Repository Date:2017-11-18 07/14/2017 SHAKIRA N Primary SHAKIRA N [facility] BRIGHTDOB: Insurance:ASH RAMOSDOB: [facility] HEALTH PLANPolic [id number] Repository GAVIN Number: [place], [place] [id number] [address]~AUBREE@ZO Date:2017-07-14 705[address]Qhu: (330) OMINTERNET.Brian 4327-03-41Orat [phone] l: (330) Name:X[address] Box (HP) [address] [place] [address] [place] 000-0000 (WP) (HP)Tel: [phone]) [phone]: (wp) [phone] 07/09/2017 SHAKIRA [id number] Primary SHAKIRA [place] GAVIN Insurance[facility] RAMOSDOB: [facility] [id number] Hospital [address]Caw: (330) PLANPolicy Number: Repository [phone] () [id number] Date:9478-65-28VO [address] [place] [address]YX: 07/09/2017 Secondary NOT GIVENUNK David Insurance:SELF PAY [facility] Number: Effective Repository Date:2017-07-09 07/06/2017 SHAKIRA [id number] Primary SHAKIRA David GAVIN Insurance:ASH RAMOSDOB: [facility] [id number] Hospital [address]Znx: (330) PLANPolicy Number: Repository [phone] () [id number] Date:8589-76-43EY [address] [place] [address] 533[address]IP: 07/06/2017 Secondary NOT GIVENUNK [place] Insurance:SELF PAY [facility] Number: Effective Repository Date:2017-07-06
== END 2018-06-26 14:00 | disposition home or self-care (01) ==
LOC: WPOUT 11:34 → WP 11:35
PROVIDERS: Referring Provider Obstetrics & Gynecology; Visit Provider Obstetrics & Gynecology
DX: O26.893 Other specified pregnancy related conditions, third trimester (principal); R03.0 Elevated blood-pressure reading, without diagnosis of hypertension; Z3A.00 Weeks of gestation of pregnancy not specified
CPT/HCPCS: 59025; 59050; 81001; 84112; 87086; 87088; 99218; G0378

== ENCOUNTER 2018-07-13 17:30 | Outpatient (CLI) | payer MEDICAID, SELFPAY ==
[2018-07-13 17:02] VITALS: BMI 39.2
[2018-07-13 17:49] VITALS: BMI 39.6
[2018-07-13 18:43] LABS: Protein, Urine (Random) 21.7 mg/dL (<11.9); Protein:Creat Ratio 108 mg/g CRE (0-200)
[2018-07-13 18:47] LABS: Hematocrit 35.7 % (37-47); Hemoglobin 11.6 g/dl (12.0-15.0); Mean Corp Hgb Conc 32.5 g/gl (32-36); Mean Corpuscular Hgb 26.2 pg (27.0-32.0); Mean Corpuscular Volume 80.8 fL (81-99); Mean Platelet Vol. 10.3 fl (6.2-12.0); Platelet Count 237 K/mm3 (150-450); RBC Distribution Width CV 14.8 % (11.6-14.6); RBC Distribution Width SD 43.2 fl (35.1-43.9); Red Blood Count 4.42 M/mm3 (4.2-5.4); White Blood Count 8.9 K/mm3 (4.4-11.0)
[2018-07-13 18:48] LABS: Scan Indicated on CBC? Y/N NO
[2018-07-13 18:55] LABS: Prothrombin Time (Protime)PT. 12.7 SECONDS (11.7-14.9)
[2018-07-13 18:56] LABS: Partial Thromboplast Time 24.7 Seconds (24.1-36.2)
[2018-07-13 18:59] LABS: AST(SGOT) 12 U/L (15-37); Alanine Aminotransfer ALT/SGPT 12 U/L (13-56); Creatinine, Serum 0.69 mg/dL (0.55-1.02); EST Glomerular Filtration Rate 113 mL/min (>60); Est Glom Filt Rate - Afr Amer 137 mL/min (>60); Estimated Creatinine Clearance 129.01 ml/min; Uric Acid 4.3 mg/dL (2.6-6.0)
--- NOTE | 2018-07-15 00:50 | OB.TRI.NOTE ---
- Problem List (1) Elevated blood pressure affecting in third trimester, antepartum Status: Acute History of Present Illness Date of Service: 07/13/18 Was patient seen by the physician?: Yes Reason For Visit: R/O PIH History of Present Illness: elevated blood pressures Allergies shellfish derived Allergy (Verified 07/13/18 16:19) Anaphylaxis - Pertinent Past Medical History Medical History: Past Medical History (Last Reviewed 07/13/18 @ 16:20 by Jammie Cuenca) Asthma (Chronic) no inhaler needed PCOS (polycystic ovarian syndrome) (Inactive) Laboratory Studies: Laboratory Tests 07/13/18 07/13/18 07/13/18 Range/Units 18:10 18:10 18:10 WBC (4.4-11.0) K/mm3 RBC (4.2-5.4) M/mm3 Hgb (12.0-15.0) g/dl Hct (37-47) % MCV (81-99) fL MCH (27.0-32.0) pg MCHC (32-36) g/gl RDW (11.6-14.6) % RDW Differential (35.1-43.9) fl Plt Count (150-450) K/mm3 MPV (6.2-12.0) fl PT 12.7 (11.7-14.9) SECONDS INR 1.0 APTT 24.7 (24.1-36.2) Seconds Creatinine 0.69 (0.55-1.02) mg/dL Estim Creat Clear Calc 129.01 ml/min Est GFR (MDRD) Af Amer 137 (>60) mL/min Est GFR (MDRD) Non-Af 113 (>60) mL/min Uric Acid 4.3 (2.6-6.0) mg/dL AST 12 L (15-37) U/L ALT 12 L (13-56) U/L U Random Total Protein 21.7 H (<11.9) mg/dL Urine Creatinine 201.00 (NO RANGE EST.) mg/dL Protein/Creatinin Ratio 108 (0-200) mg/g CRE 07/13/18 Range/Units 18:10 WBC 8.9 (4.4-11.0) K/mm3 RBC 4.42 (4.2-5.4) M/mm3 Hgb 11.6 L (12.0-15.0) g/dl Hct 35.7 L (37-47) % MCV 80.8 L (81-99) fL MCH 26.2 L (27.0-32.0) pg MCHC 32.5 (32-36) g/gl RDW 14.8 H (11.6-14.6) % RDW Differential 43.2 (35.1-43.9) fl Plt Count 237 (150-450) K/mm3 MPV 10.3 (6.2-12.0) fl PT (11.7-14.9) SECONDS INR APTT (24.1-36.2) Seconds Creatinine (0.55-1.02) mg/dL Estim Creat Clear Calc ml/min Est GFR (MDRD) Af Amer (>60) mL/min Est GFR (MDRD) Non-Af (>60) mL/min Uric Acid (2.6-6.0) mg/dL AST (15-37) U/L ALT (13-56) U/L U Random Total Protein (<11.9) mg/dL Urine Creatinine (NO RANGE EST.) mg/dL Protein/Creatinin Ratio (0-200) mg/g CRE NST - FHR Rate Baby A Baseline: 135 Variability:: Moderate Accelerations:: 15 x 15 Decelerations:: None NST Reactive:: Yes FHR Category:: Category I Uterine Activity:: no regular Impression/Plan elevated blood pressures- repeat WNL and labs normal, reassuring dc home preeclampsia precautions
== END 2018-07-13 19:20 | disposition home or self-care (01) ==
LOC: WPOUT 17:42 → WP 17:43
PROVIDERS: Family Provider Family Medicine; PCP Family Medicine; Visit Provider Obstetrics & Gynecology
DX: O26.893 Other specified pregnancy related conditions, third trimester (principal); R03.0 Elevated blood-pressure reading, without diagnosis of hypertension; Z3A.00 Weeks of gestation of pregnancy not specified
CPT/HCPCS: 36415; 59025; 59050; 82565; 82570; 84156; 84450; 84460; 84550; 85027; 85610; 85730; 99218; G0378

== ENCOUNTER 2018-07-19 16:55 | Outpatient (CLI) | payer MEDICAID, SELFPAY ==
[2018-07-16 14:57] VITALS: BMI 39.9
[2018-07-19 18:35] VITALS: BMI 39.9
--- NOTE | 2018-07-20 18:27 | OB.TRI.NOTE ---
- Problem List (1) GBS (group B streptococcus) infection Status: Acute Comment: PCN in labor (2) PUPP (pruritic urticarial papules and plaques of ) Status: Acute Comment: supportive care (3) Status: Acute Qualifiers: Comment: genetic, carrier, screening declined. anatomy scan WNL.Negative AFP screening (4) ASCUS of cervix with negative high risk HPV Status: Acute Comment: pap due 11/2018 (5) Supervision of normal Status: Acute Qualifiers: Comment: PRR LORETTA 07/14/18 boy August boyfriend Octavio (6) Asthma Status: Chronic Qualifiers: Comment: no inhaler needed History of Present Illness Date of Service: 07/19/18 Was patient seen by the physician?: No Reason For Visit: R.O LABOR History of Present Illness: co ctx Allergies shellfish derived Allergy (Verified 07/20/18 09:40) Anaphylaxis - Pertinent Past Medical History Medical History: Past Medical History (Last Reviewed 07/20/18 @ 09:40 by Jammie Cuenca) Asthma (Chronic) no inhaler needed PCOS (polycystic ovarian syndrome) (Inactive) NST - FHR Rate Baby A Baseline: 120 Variability:: Moderate Accelerations:: 15 x 15 Decelerations:: None NST Reactive:: Yes FHR Category:: Category I Uterine Activity:: irregular Impression/Plan false labor reactive nst dc home reassuring fu in office tomorrow
== END 2018-07-19 20:50 | disposition home or self-care (01) ==
LOC: WPOUT 17:12 → WP 07-20 14:21
PROVIDERS: Family Provider Family Medicine; PCP Family Medicine; Visit Provider Obstetrics & Gynecology
DX: O47.9 False labor, unspecified (principal); O26.86 Pruritic urticarial papules and plaques of pregnancy (PUPPP); Z3A.00 Weeks of gestation of pregnancy not specified
CPT/HCPCS: 59025; 59050; 99218; G0378

== ENCOUNTER 2018-07-21 04:53 | Inpatient (IN) | payer MEDICAID, SELFPAY ==
[2018-07-20 09:40] VITALS: BMI 40.1
[2018-07-21] MEDS: Lactated Ringers 1,000 ML 50 ML IV ×4 (05:15→16:30)
[2018-07-21 05:45] LABS: Hematocrit 36.7 % (37-47); Hemoglobin 12.1 g/dl (12.0-15.0); Mean Corpuscular Hgb 26.5 pg (27.0-32.0); Mean Corpuscular Volume 80.5 fL (81-99); Mean Platelet Vol. 10.6 fl (6.2-12.0); Platelet Count 254 K/mm3 (150-450); RBC Distribution Width CV 14.9 % (11.6-14.6); Red Blood Count 4.56 M/mm3 (4.2-5.4)
[2018-07-21 05:50] LABS: Scan Indicated on CBC? Y/N NO
[2018-07-21 06:01] VITALS: BMI 40.2
[2018-07-21] MEDS: fentaNYL-bupivacaine (epidural) 100 ML BAG EPIDURAL ×3 (06:43→16:17)
--- NOTE | 2018-07-21 08:30 | PCM.HP.OB ---
- Problem List (1) GBS (group B streptococcus) infection Status: Acute Comment: PCN in labor (2) PUPP (pruritic urticarial papules and plaques of ) Status: Acute Comment: supportive care (3) Status: Acute Qualifiers: Weeks of gestation: 40 weeks Qualified Code(s): Z3A.40 - 40 weeks gestation of Comment: genetic, carrier, screening declined. anatomy scan WNL.Negative AFP screening (4) ASCUS of cervix with negative high risk HPV Status: Acute Comment: pap due 11/2018 (5) Supervision of normal Status: Acute Qualifiers: Normal : normal first Trimester: third trimester Qualified Code(s): Z34.03 - Encounter for supervision of normal first , third trimester Comment: PRR LORETTA 07/14/18 boy August boyfrienlaurent Cunningham (6) Asthma Status: Chronic Qualifiers: Asthma severity: mild Asthma persistence: intermittent Asthma complication type: uncomplicated Qualified Code(s): J45.20 - Mild intermittent asthma, uncomplicated Comment: no inhaler needed History Date of Admission: 07/21/18 Final LORETTA: 07/14/18 Gestational age: 41 Weeks and 1 Days History of this : This is a 23 year-old, , at 41 weeks gestational age presents IAL 4 cm dilated. she denies any vb admits good fm and has been having regular ctx. Medical History: Medical History (Last Reviewed 07/20/18 @ 09:40 by Jammie Cuenca) Asthma (Chronic) J45.909 no inhaler needed PCOS (polycystic ovarian syndrome) (Inactive) E28.2 Allergies shellfish derived Allergy (Verified 07/21/18 06:02) Anaphylaxis Home Medications: Home Medications Pnv No.95/Ferrous Fum/Folic AC [ Caplet] 1 ea PO DAILY 07/13/18 Smoking Status: Former smoker Alcohol: None Number of Fetus(es): 1 Heart Tracin moderate variability reactive no decelerations category I tracing Cantu Addition: regular History Past Pregnancies: Past Pregnancies Delivery Date Name GA/Weeks Outcome Route Weight Infant Gender Labor Length Anesthesia Delivery Location Provider FOB Labs: Mom's Labs & Results 07/21/18 07/21/18 05:15 05:15 WBC 10.0 RBC 4.56 Hgb 12.1 Hct 36.7 L MCV 80.5 L MCH 26.5 L MCHC 33.0 RDW 14.9 H RDW Differential 43.0 Plt Count 254 MPV 10.6 Blood Type A POSITIVE Antibody Screen NEGATIVE Course Did the patient receive Yes care? Labs Blood Type: A RH: POSITIVE RPR/VDRL/Syphilis Nonreactive Rubella status Immune HbSAg Negative Date Done: 11/18/17 Chlamydia Negative Gonorrhea Negative HIV/AIDS Non-Reactive Group B Strep: Positive Current Obstetrical History Gestational Diabetes No Incompetent Cervix No Infertility No IUGR No Macrosomia No Hypertension/Pre-eclampsia Yes: pt declines medications Placenta Previa/Abruption No PTL/PROM No Uterine anomaly No Oligohydramnios No Polyhydramnios No Multiple gestation No Past Medical History Asthma Yes: childhood asthma, no medications Diabetes No Hypertension No Heart disease No Mitral valve prolapse No Neurologic/Seizure disorder/ No Migraines Kidney disease No Liver disease No Varicosities No Clotting disorders/Hx of DVT No Thyroid Dysfunction No Other medical diseases No Psychiatric disorders No Major trauma No Abnormal PAP smear No Sleep apnea No Mammogram in the last 2 years No Social History Marital Status: SINGLE Alleged father Octavio Hx Smoking Yes Smoking Status Former smoker Expected Delivery Method: Spontaneous Vaginal Review of Systems Constitutional: Reports: Chills. Denies: Fever, Malaise Eyes: Denies: Blurred vision, Vision Change HEENT: Denies: Head Aches, Visual Changes Cardiovascular: Denies: Chest Pain, Palpitations Respiratory: Denies: Cough, Shortness of Breath, Wheezing Gastrointestinal: Reports: Abdominal Pain. Denies: Diarrhea, Nausea, Vomiting Genitourinary: Denies: Dysuria, Hematuria Musculoskeletal: Denies: Joint Pain, Muscle pain Skin: Denies: Lesions, Rash Neurological: Denies: Blurred vision, Focal weakness, Headaches Psychiatric: Denies: Anxiety, Depression Endocrine: Denies: Heat/ Cold Intolerance Hematologic/ Lymphatic: Denies: Easy Bruising, Easy Bleeding Physical Exam General: Alert, Cooperative, No apparent distress HEENT: Atraumatic, Normocephalic. Negative for: Thyromegaly, Lymphadenopathy Cardiovascular: Regular rate Lungs: Normal air movement Abdomen: Soft, Non Tender, Gravid Neurological: Deep Tendon Reflexes 2+/4 and Symmetrical, Neuro grossly intact. Negative for: Clonus BUILDING SURVEYOR: Normal external genitalia. Negative for: Vulvar lesions Estimated gestational size: Appropriate for gestational size Presentation: Cephalic Cervix Dilation (cm): 4 Assessment/Plan All Active Problems (Last Reviewed 07/20/18 @ 09:40 by Jammie Cuenca) Elevated blood pressure affecting in third trimester, antepartum (Acute) GBS (group B streptococcus) infection (Acute) PUPP (pruritic urticarial papules and plaques of ) (Acute) (Acute) ASCUS of cervix with negative high risk HPV (Acute) Supervision of normal (Acute) Elevated blood pressure affecting in third trimester, antepartum (Resolved) Irregular menses (Resolved) This is a 23 year-old, at 41 weeks gestational age presents IAL Patient presents IAL, plan expectant management for arom clear fluid, pit prn. Pain management: plans epidural. GBS positive plan IV PCN. Management of any complications: none I have reviewed the [facility] and made any clinically relevant updates.
--- NOTE | 2018-07-21 19:09 | PLAC_PTH ---
PATIENT: SHAKIRA THOMPSON LOC: [facility] U#:[id number] AGE/SX: 23/F ROOM: WP018 RE07/21/[address]: Dr. Gricel Modi MD : 1995 BED: 1 DIS: 07/23/2018 SPEC #: [id number] RECD: 07/21/18 23:31 STATUS: KENYA REHailey #: [id number] AIRAM: 07/21/18 19:[address]: Gricel Modi DEPT: SURGICAL PATHOLOGY RECD BY: Malcolm eGiger ENTERED: 07/22/18 08:13 SP TYPE: PLACENTA OTHR DR: Dr. Rena Gamino MD Tissues: Placenta, NOS Procedures: Surgery Specimen Level V HEADER OPERATION: Vaginal delivery PRE-OP DIAGNOSIS: Maternal fever TISSUE SUBMITTED: Placenta MICROSCOPIC DIAGNOSIS Placenta: Placental disc - third trimester placenta (593 gm). Membranes - mild acute chorioamnionitis. Umbilical cord - three blood vessels and no pathologic diagnosis. GISSELL:paulino 07/24/18 MICROSCOPIC DESCRIPTION Slides are reviewed. GROSS DESCRIPTION SPECIMEN: PLACENTA / CLINICAL INFORMATION: A. Weight: 4.61 kg B. Gestational Age: 41 weeks C. Sex: Male PLACENTAL WEIGHT (POST FIXATION): 593 gm PLACENTAL DIMENSIONS: 19 x 18 x 3 cm PLACENTAL SHAPE: Usual ovoid PLACENTAL WEIGHT FOR GESTATIONAL AGE: Within 10-99th percentile MEMBRANES - Present A. Insertion: Marginal B. Site of rupture from edge: At edge of placental disc C. Color of membrane: [place] D. Abnormalities: None UMBILICAL CORD - Present A. Color: [place] B. Insertion: Paracentral C. Length: 35 cm D. Diameter: 1 to 2 cm E. Number of vessels: Three F. Abnormalities: None PLACENTAL DISC - Present A. Color of surface: [place] B. surface abnormalities: None C. Maternal cotyledons: Intact with minimal tears D. Attached retro placental clot: No clot E. Cut surface: Dark red and spongy F. Lesions: None G. Separate clot: Absent SECTIONS SUBMITTED: 1. Membrane roll 2. Cord, maternal end, most dilated portion of umbilical cord inked black 3. Cord, end 4. Placental disc, and maternal surfaces 5. Placental disc, and maternal surfaces 6. Placental disc, and maternal surfaces SJ:paulino 07/23/18 TC:2 CPT: 07879
[2018-07-21] MEDS: Oxytocin 30 units/NS 500 ml 30 UNITS/500 ML IV.SOLN 334 UNITS IV (19:13)
[2018-07-21] MEDS: Oxytocin 30 units/NS 500 ml 30 UNITS/500 ML IV.SOLN 167 UNITS IV (19:43)
--- NOTE | 2018-07-21 19:48 | PCM.OB.VAG ---
- Problem List (1) GBS (group B streptococcus) infection Status: Acute Comment: PCN in labor (2) PUPP (pruritic urticarial papules and plaques of ) Status: Acute Comment: supportive care (3) Status: Acute Qualifiers: Weeks of gestation: 40 weeks Qualified Code(s): Z3A.40 - 40 weeks gestation of Comment: genetic, carrier, screening declined. anatomy scan WNL.Negative AFP screening (4) ASCUS of cervix with negative high risk HPV Status: Acute Comment: pap due 11/2018 (5) Supervision of normal Status: Acute Qualifiers: Normal : normal first Trimester: third trimester Qualified Code(s): Z34.03 - Encounter for supervision of normal first , third trimester Comment: PRR LORETTA 07/14/18 peggy Koch boyfrienlaurent Cunningham (6) Asthma Status: Chronic Qualifiers: Asthma severity: mild Asthma persistence: intermittent Asthma complication type: uncomplicated Qualified Code(s): J45.20 - Mild intermittent asthma, uncomplicated Comment: no inhaler needed Vaginal Delivery Maternal Presentation: Active Labor 23 yo @ 41 weeks presnts IAL Amniotic Membrane Rupture Type: Artificial Amniotic Fluid Description: Clear Final LORETTA: 07/14/18 Gestational age: 41 Weeks and 1 Days Surgery/ Procedure Performed: Spontaneous Vaginal Delivery Type of Anesthesia: Epidural Description of Procedure: Patient began pushing and delivered the head in the ARI presentation. The head was delivered atraumatically and a loose nuchal cord ?1 was identified and easily reduced over the 's head. The anterior and posterior shoulders delivered without complication followed by the rest of the infant and the was placed on the maternal abdomen. Delayed cord clamping was employed for approximately 60 seconds. Cord was clamped and cut and gentle traction was applied to the cord and the placenta delivered spontaneously immediately following it was noted to be intact with three-vessel cord. The perineum and vagina were inspected and noted to have a third degree laceration. the laceration was repaired in the usual fashion with 2-0 and 3-0 vicryl and 2-0 PDS to reapproximate the sphincter muscles EBL was 400 cc. Patient and tolerated delivery well.
[2018-07-21] MEDS: Lactated Ringers 1,000 ML 15 ML IV (20:43)
[2018-07-21] MEDS: Ketorolac 10 MG Tablet PO (23:06)
[2018-07-21] MEDS: Docusate Sodium 100 MG Capsule PO (23:06)
[2018-07-21 23:45] VITALS: BP 158/74; PULSE 107; RESP 18; TEMP 37.5; O2SAT 98
[2018-07-22 03:50] VITALS: BP 150/82; PULSE 94; RESP 16; TEMP 36.5; O2SAT 98
[2018-07-22 06:00] VITALS: BP 134/78
--- NOTE | 2018-07-22 08:44 | PCM.PN.OB ---
Subjective: Doing well. No CP, SOB - Physical Exam General: Alert, Oriented x3 Abdomen: Soft, Non Tender, - - FF below U Vital Signs Temp Pulse Resp BP Pulse Ox 97.7 F L 94 16 134/78 H 98 07/22/18 03:50 07/22/18 03:50 07/22/18 03:50 07/22/18 06:00 07/22/18 03:50 Oxygen Delivery Method Room Air Weight: 264 lb 8.875 oz Body Mass Index (BMI) 40.2 Intake and Output for Last 24 Hours 07/20/18 07/21/18 07/22/18 23:59 23:59 23:59 Intake Total 2500 / 2500 Output Total 800 / 800 800 / 800 Balance 1700 / 1700 -800 / -800 Medical Necessity - Tobacco Use Smoking Status: Former smoker Assessment/Plan All Active Problems (Last Reviewed 07/20/18 @ 09:40 by Jammie Cuenca) Elevated blood pressure affecting in third trimester, antepartum (Acute) GBS (group B streptococcus) infection (Acute) PUPP (pruritic urticarial papules and plaques of ) (Acute) (Acute) ASCUS of cervix with negative high risk HPV (Acute) Supervision of normal (Acute) Elevated blood pressure affecting in third trimester, antepartum (Resolved) Irregular menses (Resolved) POD #1: Routine care. . No concerns.
[2018-07-22 08:55] VITALS: BP 135/71; PULSE 99; RESP 20; TEMP 36.9; O2SAT 98
[2018-07-22] MEDS: Ketorolac 10 MG Tablet PO ×3 (10:00→21:11)
[2018-07-22] MEDS: Docusate Sodium 100 MG Capsule PO ×2 (10:00→21:12)
[2018-07-22 12:00] VITALS: BP 133/66; PULSE 105; RESP 18; TEMP 36.2; O2SAT 98
[2018-07-22 15:56] VITALS: BP 142/70; PULSE 99; RESP 18; TEMP 36.8; O2SAT 99
[2018-07-22 20:00] VITALS: BP 135/79; PULSE 106; RESP 18; TEMP 36.6
[2018-07-23 02:00] VITALS: BP 138/78; PULSE 90; RESP 17; TEMP 36.4
[2018-07-23] MEDS: Ketorolac 10 MG Tablet PO ×2 (03:12→09:42)
[2018-07-23 07:55] VITALS: BP 134/83; PULSE 80; RESP 16; TEMP 36.3
--- NOTE | 2018-07-23 08:01 | PCM.PN.OB ---
Subjective: Doing well NO CP, SOB. Plans home today. - Physical Exam General: Alert, Oriented x3 Abdomen: Soft, Non Tender, - - FF below U Vital Signs Temp Pulse Resp BP Pulse Ox 97.5 F L 90 17 138/78 H 99 07/23/18 02:00 07/23/18 02:00 07/23/18 02:00 07/23/18 02:00 07/22/18 15:56 Oxygen Delivery Method Room Air Weight: 264 lb 8.875 oz Body Mass Index (BMI) 40.2 Intake and Output for Last 24 Hours 07/21/18 07/22/18 07/23/18 23:59 23:59 23:59 Intake Total 2500 / 2500 Output Total 800 / 800 800 / 800 Balance 1700 / 1700 -800 / -800 Medical Necessity - Tobacco Use Smoking Status: Former smoker Assessment/Plan All Active Problems (Last Reviewed 07/20/18 @ 09:40 by Jammie Cuenca) Elevated blood pressure affecting in third trimester, antepartum (Acute) GBS (group B streptococcus) infection (Acute) PUPP (pruritic urticarial papules and plaques of ) (Acute) (Acute) ASCUS of cervix with negative high risk HPV (Acute) Supervision of normal (Acute) Elevated blood pressure affecting in third trimester, antepartum (Resolved) Irregular menses (Resolved) PPD#2: Routine care. . Home today
--- NOTE | 2018-07-23 08:02 | PCM.DCVAG ---
Additional Instructions: If you experience any of the following, contact your healthcare provider. Bleeding that soaks a pad every hour for 2 hours Fever 100.4 or higher Unrelieved incision or abdominal pain Swelling, redness, discharge or bleeding from your incision or episiotomy site Your incision begins to separate Problems urinating (including inability to urinate or burning while urinating). Visual changes Severe headache Flu-like symptoms Pain or redness in one of both of your breasts Pain, warmth, tenderness or swelling in your legs, especially the calf area Frequent nausea and vomiting Symptoms of depression or anxiety If you experience any of the following, call 911 or go to the nearest Emergency Room. Chest pain Problems breathing Seizure activity Partial or complete paralysis of a body part, slurred speech, weakness or drooping of the face, or a sudden inability to walk or hold your balance Allergies/Adverse Reactions: Allergies shellfish derived Allergy (Verified 07/21/18 06:02) Anaphylaxis Medications to take at Discharge Pnv No.95/Ferrous Fum/Folic AC [ Caplet] 1 ea PO DAILY 07/13/18 Primary Care Physician: Rena Gamino MD [Primary Care Provider] - Test Results: Test results from this visit will be discussed in further detail at your follow-up appointment, if applicable.
--- NOTE | 2018-07-23 08:03 | DCINST_ITS ---
Additional Instructions: If you experience any of the following, contact your healthcare provider. * Bleeding that soaks a pad every hour for 2 hours * Fever 100.4 or higher * Unrelieved incision or abdominal pain * Swelling, redness, discharge or bleeding from your incision or episiotomy site * Your incision begins to separate * Problems urinating (including inability to urinate or burning while urinating). * Visual changes * Severe headache * Flu-like symptoms * Pain or redness in one of both of your breasts * Pain, warmth, tenderness or swelling in your legs, especially the calf area * Frequent nausea and vomiting * Symptoms of depression or anxiety If you experience any of the following, call 911 or go to the nearest Emergency Room. * Chest pain * Problems breathing * Seizure activity * Partial or complete paralysis of a body part, slurred speech, weakness or drooping of the face, or a sudden inability to walk or hold your balance Allergies/Adverse Reactions: Allergies shellfish derived Allergy (Verified 07/21/18 06:02) Anaphylaxis Medications to take at Discharge Pnv No.95/Ferrous Fum/Folic AC [ Caplet] 1 ea PO DAILY 07/13/18 Primary Care Physician: Rena Gamino MD [Primary Care Provider] - Test Results: Test results from this visit will be discussed in further detail at your follow- up appointment, if applicable.
[2018-07-23] MEDS: Docusate Sodium 100 MG Capsule PO (09:42)
[2018-07-23 14:04] VITALS: BP 135/76; PULSE 97; RESP 14; TEMP 36.6
[2018-07-24 14:07] LABS: Pathology Specimen OB SEE PATHOLOGY REPORT
== END 2018-07-23 14:15 | disposition home or self-care (01) | DRG 542 ==
PROVIDERS: Admitting Provider Obstetrics & Gynecology; Family Provider Family Medicine; PCP Family Medicine; Referring Provider Obstetrics & Gynecology; Visit Provider Obstetrics & Gynecology
DX: O98.82 Other maternal infectious and parasitic diseases complicating childbirth (principal); B95.1 Streptococcus, group B, as the cause of diseases classified elsewhere; O70.20 Third degree perineal laceration during delivery, unspecified; O26.86 Pruritic urticarial papules and plaques of pregnancy (PUPPP); O69.81X0 Labor and delivery complicated by cord around neck, without compression, not applicable or unspecified; J45.20 Mild intermittent asthma, uncomplicated; R03.0 Elevated blood-pressure reading, without diagnosis of hypertension; Z87.891 Personal history of nicotine dependence; Z3A.41 41 weeks gestation of pregnancy; Z37.0 Single live birth
CPT/HCPCS: 59025; 59050; 85027; 86850; 86900; 88307; 99218; J7120; G0378

== ENCOUNTER 2019-05-06 13:04 | Emergency (ER) | payer MEDICAID, SELFPAY ==
[2018-09-02 15:08] VITALS: BMI 40.2
[2019-05-06 13:05] VITALS: BP 133/72; PULSE 83; RESP 16; TEMP 36.6; O2SAT 97; BMI 39.6
--- NOTE | 2019-05-06 13:15 | ED.VIS.GEN ---
History of Present Illness Chief Complaint: Laceration Informant: Patient Onset: Today Context: Gradual Onset Timing: Continuous Current Severity: Moderate Maximum Severity: Moderate Narrative: The patient is an otherwise healthy 23-year-old female that is right-hand dominant presents to the emergency department laceration to her right thumb. Patient states she was using a cheese grater this morning. She suffered a laceration over the IP joint on the dorsum of the thumb. She states she is used bandaged, but it was still bleeding around the area. Her tetanus is up-to-date. She denies other injury. She is otherwise been in her normal state of health. Prior similar symptoms: No Recent Illness/Hospitalization: No Past Medical History - Allergies and Home Meds Allergies/Adverse Reactions: Allergies No Known Allergies Allergy (Verified 05/06/19 13:08) Primary Care Physician: Rena Gamino MD [Primary Care Provider] - Prior records reviewed: Yes Past Medical History: None Surgical History: no surgical history Smoking Status: Former smoker Review of Systems General: Denies: Chills, Fever, Sweats Eyes: Denies: Visual changes - bilaterally, Diplopia ENT: Denies: Rhinorrhea, Sore throat Cardiovascular: Denies: Chest pain, Palpitations Respiratory: Denies: Dyspnea, Cough, Dyspnea on exertion Gastrointestinal: Denies: Abdominal pain, Nausea, Vomiting, Diarrhea, Melena, Hematochezia Genitourinary: Denies: Dysuria, Hematuria, Frequency Musculoskeletal: Denies: Back pain, Extremity Pain Skin: Denies: Rash, Wounds Neurological: Denies: Headache, Weakness, Numbness Physical Exam Vital Signs/Narrative: Vital Signs Temp Pulse Resp BP Pulse Ox 05/06/19 13:05 97.9 F 83 16 133/72 H 97 Inital Vital Signs reviewed: Yes General: Well nourished, Well developed, No Acute Distress Head: Normocephalic, Atraumatic Eyes: Perrl, EOMI ENT: Moist mucous membranes, No rhinorrhea Neck: Supple, Nontender Cardiovascular: Regular rate, Regular rhythm, No murmurs Respiratory: No distress, CTA bilaterally, Chest nontender Abdomen: Soft, Nontender, Nondistended, Normal bowel sounds Back: Nontender, Normal Inspection Extremities: No edema, Tenderness - 0.5 cm L-shaped laceration over the IP joint on the dorsum of the right thumb. No active bleeding. Two-point discrimination preserved. Cap refill less than 2 seconds. Skin: Normal color, No rash Neurological: Alert, Oriented x3, Cranial nerves II-XII grossly intact, Normal Strength, Normal Sensation Psychological: Normal affect, Normal Mood Diagnostic/Tx/Re-eval - Medical Decision Making The patient presents with a 0.5 cm laceration to the thumb. Every time she bends, the laceration does gap. Let was applied topically. The wound was anesthetized with 1 cc of lidocaine without epinephrine. It was irrigated with 200 cc of saline. The wound was explored. It was sutured with 2 simple 6-0 interrupted suture. The patient tolerated this without issue. She was counseled on local wound care. She will be discharged home. Impression 1. 0.5 cm right thumb laceration with repair ED Disposition - Plan for ED Patient: Instructions: LACERATION, Hand Referrals: Rena Gamino MD [Primary Care Provider] - 10 Day for suture removal
[2019-05-06] MEDS: Lidocaine/Epi/Tetracaine 50 ML 1 APPLIC TOPICAL (13:25)
== END 2019-05-06 13:53 | disposition home or self-care (01) ==
LOC: ED 13:19
PROVIDERS: Emergency Provider Emergency Medicine; Family Provider Family Medicine; PCP Family Medicine
DX: S61.011A Laceration without foreign body of right thumb without damage to nail, initial encounter (principal); W27.8XXA Contact with other nonpowered hand tool, initial encounter; Y93.9 Activity, unspecified; Y92.89 Other specified places as the place of occurrence of the external cause; Y99.9 Unspecified external cause status; Z87.891 Personal history of nicotine dependence
CPT/HCPCS: 12001; 99283

== ENCOUNTER → 2019-11-03 11:22 | Outpatient (CLI) | payer MEDICAID, SELFPAY ==
[2019-11-02 08:32] VITALS: BMI 39.6
[2019-11-04 15:30] LABS: HPV Reflexed? NOT INDICATED
== END ==
PROVIDERS: PCP Family Medicine; Referring Provider Nurse Practitioner Women's Health; Visit Provider Nurse Practitioner Women's Health
DX: Z12.4 Encounter for screening for malignant neoplasm of cervix (principal)
CPT/HCPCS: 88175; G0145

== ENCOUNTER 2020-03-20 07:48 | Emergency (ER) | payer MEDICAID, SELFPAY ==
[2019-11-02 08:32] VITALS: BMI 39.6
[2020-03-20 07:49] VITALS: BP 136/91; PULSE 89; RESP 16; TEMP 36.3; O2SAT 100; BMI 35.7
--- NOTE | 2020-03-20 08:03 | ED.VIS.GEN ---
History of Present Illness Chief Complaint: Vag Bleeding Informant: Patient Narrative: 24-year-old female with no significant past medical history presents with concern for vaginal bleeding. States that it began yesterday. States that she had a small amount of spotting yesterday but woke up with a significant amount of vaginal bleeding this morning. States that she has had pelvic cramping intermittently over the past 3 days. Patient did have some concern for . Last menstrual period was approximately 3 weeks ago. Denies any fever or chills. Denies any urinary symptoms. Patient is G1, P0. Is any concern for STDs. Patient also has pain in her left foot. States it is been intermittent over the past 2 weeks. Worse with ambulation. Describes it as aching and on the left top of her foot. Denies any trauma. Denies any numbness or tingling. Past Medical History - Allergies and Home Meds Allergies/Adverse Reactions: Allergies No Known Allergies Allergy (Verified 03/20/20 07:48) Primary Care Physician: Rena Gamino MD [Primary Care Provider] - Past Medical History: None Surgical History: no surgical history Lives: With Family Smoking Status: Former smoker Alcohol: None Drugs: None Review of Systems General: Denies: Chills, Fever, Sweats Eyes: Denies: Visual changes - bilaterally, Diplopia ENT: Denies: Rhinorrhea, Sore throat Cardiovascular: Denies: Chest pain, Palpitations Respiratory: Denies: Dyspnea, Cough, Dyspnea on exertion Gastrointestinal: Denies: Abdominal pain, Nausea, Vomiting, Diarrhea, Melena, Hematochezia Genitourinary: Reports: - - vaginal bleeding. Denies: Dysuria, Hematuria, Frequency Musculoskeletal: Denies: Back pain, Extremity Pain Skin: Denies: Rash, Wounds Neurological: Denies: Headache, Weakness, Numbness Physical Exam Vital Signs/Narrative: Vital Signs Temp Pulse Resp BP Pulse Ox 03/20/20 07:49 97.3 F L 89 16 136/91 H 100 Inital Vital Signs reviewed: Yes General: Well nourished, Well developed, No Acute Distress Head: Normocephalic, Atraumatic Eyes: Perrl, EOMI ENT: Moist mucous membranes, No rhinorrhea Neck: Supple, Nontender Cardiovascular: Regular rate, Regular rhythm, No murmurs Respiratory: No distress, CTA bilaterally, Chest nontender Abdomen: Soft, Nondistended, Normal bowel sounds, - - TTP in the midline pelvis. Bilateral mild lower abdominal tenderness. No rebound or rigidity. Back: Nontender, Normal Inspection Extremities: Nontender, No edema Skin: Normal color, No rash Neurological: Alert, Oriented x3, Cranial nerves II-XII grossly intact, Normal Strength, Normal Sensation Psychological: Normal affect, Normal Mood Diagnostic/Tx/Re-eval Clinical Impression(s) from Imaging Studies Foot X-Ray 03/20/20 08:20 IMPRESSION: Small plantar spur Electronically Signed: Wing Rankin, at 8:36 EDT , Service support , Transvaginal US 03/20/20 10:04 IMPRESSION: Bilateral ovarian cysts. Electronically Signed: Wing Rankin, at 10:58 EDT , Service support , Laboratory Data 03/20/20 03/20/20 03/20/20 08:13 08:13 08:13 WBC RBC Hgb Hct MCV MCH MCHC RDW Std Deviation RDW Coeff of Zandra Plt Count MPV Immature Gran % (Auto) Neut % (Auto) Lymph % (Auto) Vermilion % (Auto) Eos % (Auto) Baso % (Auto) Absolute Neuts (auto) Absolute Lymphs (auto) Nucleated RBC % Urine Color Yellow Urine Clarity Sl. Cloudy Urine pH 6.0 Ur Specific [place] 1.020 Urine Protein 15 H Urine Glucose (UA) Normal Urine Ketones Negative Urine Occult Blood 250 H Urine Nitrite Negative Urine Bilirubin Negative Urine Urobilinogen Normal Ur Leukocyte Esterase 25 H Urine RBC 50-100 SEEN Urine WBC 0-5 SEEN Ur Squamous Epith Cells 10-25 SEEN Urine Bacteria 0 SEEN Urine Mucus 0 SEEN Urine Test Negative Chlam trachomat DNA PCR Cancelled N.gonorrhoeae DNA (PCR) Cancelled 03/20/20 09:13 WBC 5.2 RBC 4.38 Hgb 12.2 Hct 36.8 L MCV 84.0 MCH 27.9 MCHC 33.2 RDW Std Deviation 40.4 RDW Coeff of Zandra 13.2 Plt Count 248 MPV 9.1 Immature Gran % (Auto) 0.200 Neut % (Auto) 55.6 Lymph % (Auto) 34.4 Vermilion % (Auto) 6.7 Eos % (Auto) 2.7 Baso % (Auto) 0.4 Absolute Neuts (auto) 2.9 Absolute Lymphs (auto) 1.79 Nucleated RBC % 0 Urine Color Urine Clarity Urine pH Ur Specific [place] Urine Protein Urine Glucose (UA) Urine Ketones Urine Occult Blood Urine Nitrite Urine Bilirubin Urine Urobilinogen Ur Leukocyte Esterase Urine RBC Urine WBC Ur Squamous Epith Cells Urine Bacteria Urine Mucus Urine Test Chlam trachomat DNA PCR N.gonorrhoeae DNA (PCR) - Medical Decision Making Appears well nontoxic. Vital signs within normal limits. Pelvic exam shows scant amount of blood coming from the office. No cervical motion tenderness. Urine shows no evidence of infection. Hemoglobin stable. Spoke with patient's ARCHIVAL RECORDS CLERK who recommended ultrasound and if negative she can follow-up in the outpatient setting in the next 2 weeks. Ultrasound was negative. Patient will follow-up with her ARCHIVAL RECORDS CLERK. Foot x-ray negative. Advised on rest, ice, compression, elevation. Patient will try Motrin for the next 1 week. Asked return for any new or worsening symptoms. Patient agreeable and discharged home in stable condition. Impression: 1. Vaginal bleeding 2. Left foot pain 3. Bilateral ovarian cysts ED Disposition - Plan for ED Patient: Disposition: Home or Assisted Living Instructions: ED Bleed Irregular Vaginal, Foot and Ankle Exercises: Ankle Circles Referrals: Rena Gamino MD [Primary Care Provider] - 2 Days Gricel Modi MD [STAFF PHYSICIAN] - 1 Week
[2020-03-20 08:20] LABS: Bacteria 0 SEEN /hpf (None Seen); Mucous, Urine 0 SEEN /hpf (<or=2+)
--- NOTE | 2020-03-20 08:20 | RAD_ITS ---
STUDY: X-RAY - LEFT FOOT CLINICAL: Female, 24 years old. PAIN, NKI TECHNIQUE: 3 view(s) of the foot. COMPARISON: None. FINDINGS: There is a plantar calcaneal spur. Normal visualized subtalar, talonavicular, calcaneocuboid, tarsal and tarsometatarsal articulations. Normal metatarsi. Normal metatarsophalangeal joint of the great toe. Normal tibial and fibular sesamoid bones. Normal interphalangeal joint of the great toe. Normal phalanges of the great toe. Normal second through fifth metatarsophalangeal joints. Normal interphalangeal joints and phalanges of the lesser toes. The soft tissue structures are unremarkable. RAD/Foot min 3 Views IMPRESSION: Small plantar spur Electronically Signed: Wing Rankin, at 8:36 EDT , Service support ,
[2020-03-20 08:29] LABS: Internal QC Validated? YES +Cl - CLEAR BKGD; Pregnancy, Urine Negative Negative
[2020-03-20 08:32] LABS: Color, Urine Yellow (Yellow); Glucose, Dipstick Normal (Normal); Ketone-Dipstick Negative (Negative); Leukocyte Esterase-Dipstick 25 /ul (Negative); Nitrite-Dipstick Negative (Negative); Occult Blood-Urine 250 /ul (Negative); Protein-Dipstick 15 mg/dl (Negative); Red Blood Cells-Urine 50-100 SEEN /hpf (0-5); Squamous Epithelial Cells - UA 10-25 SEEN /hpf (5-10); Urine Bilirubin Dipstick Negative (Negative); Urine Clarity Sl. Cloudy (Clear); Urine Urobilinogen Normal (Normal); White Blood Cells 0-5 SEEN /hpf (0-5)
[2020-03-20 09:32] LABS: Absolute Lymphocyte Count 1.79 X10^3/uL (0.83-4.51); Absolute Neutrophil Count 2.9 X10^3/uL (2.0-7.7); Basophil# 0.02 X10^3/uL; Basophil% 0.4 % (0-1); Eosinophil# 0.14 X10^3/uL; Eosinophils% 2.7 % (0-5); Hematocrit 36.8 % (37-47); Hemoglobin 12.2 g/dL (12.0-15.0); Lymphocyte # 1.79 X10^3/ul (4.0); Lymphocyte % 34.4 % (19-41); Mean Corp Hgb Conc 33.2 g/dL (32-36); Mean Corpuscular Hgb 27.9 pg (27.0-32.0); Mean Platelet Vol. 9.1 fl (6.2-12.0); Monocyte# 0.35 X10^3/uL; Monocyte% 6.7 % (0-10); NRBC Flagged by Analyzer 0 % (0-5); Neutrophil % 55.6 % (47-70); Platelet Count 248 K/mm3 (150-450); RBC Distribution Width CV 13.2 % (11.6-14.6); RBC Distribution Width SD 40.4 fl (35.1-43.9); Red Blood Count 4.38 M/mm3 (4.2-5.4); White Blood Count 5.2 K/mm3 (4.4-11.0)
--- NOTE | 2020-03-20 10:04 | US_ITS ---
STUDY: ULTRASOUND OF THE FEMALE PELVIS - COMPLETE REASON FOR EXAM: Female, 24 years old. VAG BLEEDING WITH PAIN LMP: 03/06/2020. TECHNIQUE: Transvaginal TECHNICAL QUALITY: Adequate. COMPARISON: None. FINDINGS: The uterus is anteverted and is in a midline position. The uterus measures 8.3 cm x 5.3 cm x 4.3 cm. There is a Nabothian cyst of the cervix. The endometrium measures 4 mm in thickness, and is hyperechoic. There is no demonstrated endometrial mass. There is no demonstrated myometrial mass. I.U.D. - The patient does not have an I.U.D. The right ovary is visualized. The right ovary measures 3.9 cm x 3.9 cm x 2.7 cm. There is a 3 cm x 2.8 cm x 1.6 cm cyst. There is no visualized right adnexal mass or complex lesion. There is normal arterial and normal venous vascularity. The left ovary is visualized. The left ovary measures 3.9 cm x 3.7 cm x 2.7 cm. There is a 2.9 cm x 2.4 cm x 1.9 cm cyst. There is no visualized left adnexal mass or complex lesion. There is normal arterial and normal venous vascularity. There is no fluid in the cul-de-sac. US/Transvaginal Non- IMPRESSION: Bilateral ovarian cysts. Electronically Signed: Wing Rankin, at 10:58 EDT , Service support ,
[2020-03-20 11:35] VITALS: BP 131/69; PULSE 72; RESP 15; O2SAT 98
== END 2020-03-20 11:36 | disposition home or self-care (01) ==
PROVIDERS: Emergency Provider Emergency Medicine; PCP Family Medicine
DX: N93.9 Abnormal uterine and vaginal bleeding, unspecified (principal); N83.201 Unspecified ovarian cyst, right side; N83.202 Unspecified ovarian cyst, left side; M79.672 Pain in left foot; Z87.891 Personal history of nicotine dependence
CPT/HCPCS: 36415; 73630; 76830; 81001; 81025; 85025; 93976; 99282; 99285

== ENCOUNTER → 2020-05-12 14:26 | Outpatient (CLI) | payer MEDICAID, SELFPAY ==
[2020-04-17 13:42] VITALS: BMI 36.1
--- NOTE | 2020-05-12 14:29 | US_ITS ---
STUDY: FIRST TRIMESTER OBSTETRICAL ULTRASOUND REASON FOR EXAM: Female, 24 years old ovarian cyst with LMP: 03/21/2020 TECHNIQUE: Transvaginal TECHNICAL QUALITY: Adequate. PRIOR ULTRASOUND: None. FINDINGS: There is visualization of a single gestational sac in a normal intrauterine position. The mean sac diameter (MSD) measures 14 mm, indicating an estimated gestational age (EGA) of 6 weeks, 1 days. The gestational sac shape is within normal limits. There is a visualized yolk sac. The yolk sac measures 4 mm. The placenta is non-visualized. There is visualization of a live embryo. The crown-rump length (CRL) measures 6 mm, indicating an estimated gestational age (EGA) of 6 weeks, 3 days. There is demonstrated cardiac activity with a heart rate of 71 bpm. The estimated gestation age (EGA) by LMP is 7 weeks, 3 days. The estimated date of delivery (LORET[place]) by LMP is 12/26/2020. The estimated gestation age (EGA) by US is 6 weeks, 2 days. The estimated date of delivery (LORET[place]) by US is 01/03/2021. The uterus measures 9.7 x 6.9 x 5.0 cm. There is no demonstrated uterine fibroid. The cervix is closed. The right ovary measures 3.3 x 2.6 x 2.6 cm. There is no right ovarian cyst. There is no visualized right adnexal mass or complex lesion. The left ovary measures 5.9 x 3.2 x 3.3 cm. 2 cm theca lutein cyst of the left ovary. There is no visualized left adnexal mass or complex lesion. There is no fluid in the cul de sac. US/Transvaginal w/Preg US IMPRESSION: Living intrauterine of 6 weeks 2 days as described above. Electronically Signed: Vasquez Marroquin MD at 11:52 EST Tel , Service support ,
== END ==
PROVIDERS: Referring Provider Obstetrics & Gynecology; Visit Provider Obstetrics & Gynecology
DX: N83.209 Unspecified ovarian cyst, unspecified side (principal)
CPT/HCPCS: 76817

== ENCOUNTER 2020-05-18 12:06 | Day surgery (SDC) | payer MEDICAID, SELFPAY ==
[2020-05-17 15:25] VITALS: BMI 35.7
[2020-05-18] VITALS (7 sets, daily range): BP systolic 123–145; BP diastolic 64–90; PULSE 85–102; RESP 16; TEMP 36.2–37; O2SAT 97–100; BMI 35.4
--- NOTE | 2020-05-18 11:56 | HP.PCM_ITS ---
- Problem List (1) Missed Status: Acute History and Physical Date of Admission: 05/18/20 Intake Vital Signs 05/17/20 Height 5 ft 8 in 05/17/20 Weight: 235 lb 2 oz 05/17/20 BP 128/72 H Intake Visit Reasons: ? SAB Critical Care Physician Assistant Required: No Is patient in pain?: Yes Allergies No Known Allergies Allergy (Verified 05/17/20 15:25) Medications multivitamin no.47-iron fum 27 mg-folate no.1 1 mg-dha 300 mg capsule cap PO 05/16/20 [History Confirmed 05/17/20] Post menopausal: No Patient : Yes : No [facility] Medical History Asthma (Chronic) PCOS (polycystic ovarian syndrome) (Inactive) Social History (Updated 05/17/20 @ 15:[address] 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 SAB: Details: SHAKIRA ACEVEDO is a 24 year old who presents for bleeding. She is 6 weeks . She was seen yesterday for bleeding and was found to have a live IUP with a HR in the 70s. Reports bleeding has slightly increased and she is now having more cramping. Pregancy History 2 Elective abortions Hx Para 1 Spontaneous abortions Hx # Term Pregnancies Ectopic pregnancies Hx # Pregnancies Multiple births # of living children Past Pregnancies Del. Date Name GA/Weeks Outcome Route Bth Weight Gen Labor Lgth Anesthesia Del Locatn Provider FOB Unknown 2019 August 41 live - full term 10lbs 3oz Male 1 9.5 hours epidural [facility] Octavio BROWN ROS Const Reports system reviewed and no additional complaints, except as documented Card Reports system reviewed and no additional complaints, except as documented Resp Reports system reviewed and no additional complaints, except as documented GI Reports system reviewed and no additional complaints, except as documented, Reports nausea Reports system reviewed and no additional complaints, except as documented, pelvic cramping, vaginal bleeding Musc Reports system reviewed and no additional complaints, except as documented all other systems reviewed and negative Exam Const General: cooperative, healthy appearing, comfortable, well developed, well groomed Orientation: alert, awake, oriented x3 Neck Neck: normal visual inspection, full ROM Resp Effort & Inspection: normal respiratory effort, able to speak in complete sentences, symmetric chest movement Cardio Rate: regular rate Skin General: no rashes or lesions noted, elasticity normal, turgor normal Lesions: no lesions Rashes: no rashes Neuro General: alert, awake, oriented x3 Cranial Nerves: CN's II-XI intact bilaterally, PERRL, EOM intact bilaterally Cognition: normal cognition Speech: speech normal Gait: normal gait Extrem General: normal to inspection, full ROM, no pedal edema Psych Appearance: grossly normal Mental Status: mental status grossly normal Mood: congruent mood Affect: normal affect Speech and Movement: speech and movement normal Attitude: cooperative Thought Process: normal Thought Content: normal Assessment & Plan 1. Missed O02.1 Plan Patient presents for vaginal bleeding and cramping Ultrasound in office yesterday showed HR in 70s - US in office today shows no evidence of cardiac activity. Blood type Rh positive. Reassurance provided that this was not a preventable occurrence and that there is nothing that could have been done to prevent this. Discussed with patient that ultrasound is consistent with miscarriage. Discussed management options including expectant management, medical management, and surgical management. Risks and benefits discussed for each approach. Did review the risks associated with surgery including bleeding, infection, and visceral or vascular injury. All questions answered. Patient decided on suction D&C. UPDATE- I have seen the patient and performed any clinically relevant updates to the history and physical exam. Luann Flower MD
[2020-05-18] MEDS: Doxycycline 100 MG CAPSULE 200 MG PO (12:30)
[2020-05-18] MEDS: Lactated Ringers 1,000 ML 125 ML IV (13:05)
--- NOTE | 2020-05-18 13:11 | PCM.DC.D&C ---
Discharge Diet: No Restrictions Discharge Activity: Return to Normal Activity, May Shower, May Take a Tub Bath - in 2 weeks. May resume sexual activity in: 1-2 weeks Call your doctor if your incision/area has: Continuous Slow Oozing, Sudden Increased Bleeding, Foul Smelling Discharge Call your doctor if you observe: Fever of 101 or Higher, Inability to urinate, Using more than one pad per hour, Shortness of breath, Dizziness, Fainting spells Allergies/Adverse Reactions: Allergies No Known Allergies Allergy (Verified 05/18/20 12:20) Medications to take at Discharge multivitamin no.47-iron fum 27 mg-folate no.1 1 mg-dha 300 mg capsule cap PO DAILY 05/16/20 Ibuprofen [Motrin] 800 mg PO TID PRN PRN #60 tab 05/18/20 The following prescriptions were given: Ibuprofen [Motrin] 800 mg PO TID PRN PRN #60 tab PRN Reason: Pain 1-10 Or Fever Transmission Status: Pending to [facility] Primary Care Physician: Care Physician,No Primary [Primary Care Provider] - Test Results: Test results from this visit will be discussed in further detail at your follow-up appointment, if applicable.
--- NOTE | 2020-05-18 13:12 | PCM.OPRPT ---
Problem List (1) Missed Status: Acute Report of Operation Date of Procedure: 05/18/20 Pre-Operative Diagnosis: Missed Post-Operative Diagnosis: Same Surgery/Procedure Performed:: Suction dilation and curettage Description of Surgical Findings:: Normal appearing cervix. Type of Anesthesia:: MAC Special Medications: Doxycycline pre-op Specimen's removed: Products of conception Estimated Blood Loss (mL): 50 ml Fluids Replaced: 700 ml Description of Procedure: The patient was taken to the operating room where anesthesia was obtained without difficulty. She was prepped and draped in the dorsal lithotomy position with yellofin stirrups. A weighted speculum was placed in the posterior aspect of the vagina and the anterior lip of the cervix was grasped with a ring forcep. The cervix was sequentially dilated to accommodate a #7 curved curette. The suction was activated and the products of conception were removed in an outward rotating movement. A gentle sharp curettage was then performed followed by an additional pass with the suction. The procedure was deemed complete. All instruments were removed from the vagina. The patient was awakened from anesthesia and taken to the recovery room in stable condition. - Complications None - Admit VTE Documentation VTE Present on Admission: No VTE Mechan Device Prophylaxis: SCD's VTE Pharm Prophylaxis ordered?: No Multi Select Codes - Urinary/Genital Urinary/Genital CPT Codes: 33500 Surg Trtmt missed Ab 1TM
[2020-05-18 13:24] LABS: Hematocrit 34.9 % (37-47); Hemoglobin 11.9 g/dL (12.0-15.0); Mean Corp Hgb Conc 34.1 g/dL (32-36); Mean Corpuscular Hgb 28.4 pg (27.0-32.0); Mean Corpuscular Volume 83.3 fL (81-99); Mean Platelet Vol. 9.5 fl (6.2-12.0); Platelet Count 278 K/mm3 (150-450); RBC Distribution Width CV 13.2 % (11.6-14.6); RBC Distribution Width SD 39.6 fl (35.1-43.9); Red Blood Count 4.19 M/mm3 (4.2-5.4); White Blood Count 6.2 K/mm3 (4.4-11.0)
--- NOTE | 2020-05-18 14:15 | POC_PTH ---
PATIENT: SHAKIRA THOMPSON LOC: [facility] [place] U#:[id number] AGE/SX: 24/F ROOM: RE05/18/[address]: Dr. Luann Flower MD : 1995 BED: DIS: 05/18/2020 SPEC #: [id number] RECD: 05/18/20 15:37 STATUS: KENYA REHailey #: [id number] AIRAM: 05/18/20 14:[address]: Luann Flower DEPT: SURGICAL PATHOLOGY RECD BY: Alyce Lee ENTERED: 05/19/20 08:16 SP TYPE: PROD CONC OTHR DR: No Primary Care Phys Tissues: Product of conception, NOS Procedures: Surgery Specimen Level IV HEADER OPERATION: Suction dilation and curettage PRE-OP DIAGNOSIS: Missed AB TISSUE SUBMITTED: Products of conception MICROSCOPIC DIAGNOSIS Products of conception: Decidua, gestational endometrium and a few immature chorionic villi (products of conception). SJ:paulino 05/22/20 MICROSCOPIC DESCRIPTION Slides are reviewed. GROSS DESCRIPTION Received in fixative is one container labeled with the patient's name and designated products of conception. The specimen consists of multiple irregular fragments of light mckeon soft tissue that in aggregate measure 7 x 7 x 1 cm. No tissue is identified. Air Brake Operator sections are submitted in two cassettes. / SJ:paulino 05/19/20 TC:5 CPT: 00330
== END 2020-05-18 17:41 | disposition home or self-care (01) ==
LOC: SDC 12:08 → AC 12:08
PROVIDERS: Referring Provider Obstetrics & Gynecology; Visit Provider Obstetrics & Gynecology
PROC: (CPT 59820; principal; 2020-05-18 14:00)
DX: O03.4 Incomplete spontaneous abortion without complication (principal); Z3A.01 Less than 8 weeks gestation of pregnancy; Z87.891 Personal history of nicotine dependence; J45.909 Unspecified asthma, uncomplicated
CPT/HCPCS: 01965; 59820; 85027; 86850; 86900; 86901; 87426; 88305; J7120

== ENCOUNTER → 2020-08-09 13:48 | Outpatient (CLI) | payer MEDICAID, SELFPAY ==
[2020-08-09 13:33] VITALS: BMI 36.5
[2020-08-09 15:09] LABS: hCG Titer Quant., Serum 169 mIU/mL (1-3)
== END ==
PROVIDERS: Referring Provider Obstetrics & Gynecology; Visit Provider Obstetrics & Gynecology
DX: Z34.90 Encounter for supervision of normal pregnancy, unspecified, unspecified trimester (principal)
CPT/HCPCS: 36415; 84702

== ENCOUNTER → 2020-08-11 15:35 | Outpatient (CLI) | payer MEDICAID, SELFPAY ==
[2020-08-09 13:33] VITALS: BMI 36.5
[2020-08-11 16:59] LABS: hCG Titer Quant., Serum 72 mIU/mL (1-3)
== END ==
PROVIDERS: Referring Provider Obstetrics & Gynecology; Visit Provider Obstetrics & Gynecology
DX: Z34.90 Encounter for supervision of normal pregnancy, unspecified, unspecified trimester (principal)
CPT/HCPCS: 36415; 84702

== ENCOUNTER → 2020-08-18 13:33 | Outpatient (CLI) | payer MEDICAID, SELFPAY ==
[2020-08-09 13:33] VITALS: BMI 36.5
[2020-08-18 16:01] LABS: hCG Titer Quant., Serum < 1 mIU/mL (1-3)
== END ==
PROVIDERS: Visit Provider Obstetrics & Gynecology
DX: O03.9 Complete or unspecified spontaneous abortion without complication (principal)
CPT/HCPCS: 36415; 84702

== ENCOUNTER → 2020-08-22 09:36 | Outpatient (CLI) | payer MEDICAID, SELFPAY ==
[2020-08-22 09:20] VITALS: BMI 36.7
[2020-08-22 10:49] LABS: Thyroid Stim Hormone (TSH) 1.28 uIU/mL (0.358-3.74)
[2020-08-24 03:07] LABS: Dilute Prothrombin Time (dPT) 37.3 sec (0.0-55.0); Dilute Russell Viper Venom 35.2 sec (0.0-47.0); PTT-LA 30.8 sec (0.0-51.9); Thrombin Time 16.9 sec (0.0-23.0); dPT Confirm Ratio 1.02 Ratio (0.00-1.40)
[2020-08-24 07:29] LABS: Anti-Cardiolipin Ab, IgA, Qn < 9 APL U/mL (0-11); Anti-Cardiolipin Ab, IgG, Qn < 9 GPL U/mL (0-14); Anti-Cardiolipin Ab, IgM, Qn 11 MPL U/mL (0-12); Beta-2-Glycoprotein I IgA <9 (0-25); Beta-2-Glycoprotein I IgG <9 (0-20); Beta-2-Glycoprotein I IgM <9 (0-32); Interpretation Comment: (.)
== END ==
PROVIDERS: Visit Provider Obstetrics & Gynecology
DX: N96 Recurrent pregnancy loss (principal)
CPT/HCPCS: 36415; 84443; 86146; 86147

== ENCOUNTER 2020-10-01 18:24 | Emergency (ER) | payer MEDICAID, SELFPAY ==
[2020-10-01 18:25] VITALS: BP 154/79; PULSE 84; RESP 18; TEMP 36.5; O2SAT 100; BMI 38.6
--- NOTE | 2020-10-01 18:31 | ED.DCSUM_ITS ---
History of Present Illness Chief Complaint: Lower Extremity Injury Informant: Patient Narrative: 25-year-old female with past medical history of PCOS presents with concern for left foot pain. States that she twisted her ankle in an inversion injury approximately 6 weeks ago at work. States she has intermittent pain in the outer aspect of her left foot. States it is aching and worse with movement. Denies any numbness or tingling. Past Medical History - Allergies and Home Meds Allergies/Adverse Reactions: Allergies No Known Allergies Allergy (Verified 10/01/20 18:26) Primary Care Physician: Care Physician,No Primary [Primary Care Provider] - Prior records reviewed: Yes Past Medical History: - - PCOS Surgical History: no surgical history Lives: Spouse/ Significant Other Smoking Status: Former smoker Alcohol: None Drugs: None Review of Systems General: Denies: Chills, Fever, Sweats Eyes: Denies: Visual changes - bilaterally, Diplopia ENT: Denies: Rhinorrhea, Sore throat Cardiovascular: Denies: Chest pain, Palpitations Respiratory: Denies: Dyspnea, Cough, Dyspnea on exertion Gastrointestinal: Denies: Abdominal pain, Nausea, Vomiting, Diarrhea, Melena, Hematochezia Genitourinary: Denies: Dysuria, Hematuria, Frequency Musculoskeletal: Reports: Arthralgias. Denies: Back pain, Extremity Pain Skin: Denies: Rash, Wounds Neurological: Denies: Headache, Weakness, Numbness Physical Exam Vital Signs/Narrative: Vital Signs Temp Pulse Resp BP Pulse Ox 10/01/20 18:25 97.7 F L 84 18 154/79 H 100 Inital Vital Signs reviewed: Yes General: Well nourished, Well developed, No Acute Distress Head: Normocephalic, Atraumatic Eyes: Perrl, EOMI ENT: Moist mucous membranes, No rhinorrhea Neck: Supple, Nontender Cardiovascular: Regular rate, Regular rhythm, No murmurs Respiratory: No distress, CTA bilaterally, Chest nontender Abdomen: Soft, Nontender, Nondistended, Normal bowel sounds Back: Nontender, Normal Inspection Extremities: No edema, - - TTP along the lateral aspect of the foot. No overlying skin changes. Skin: Normal color, No rash Neurological: Alert, Oriented x3, Cranial nerves II-XII grossly intact, Normal Strength, Normal Sensation Psychological: Normal affect, Normal Mood Diagnostic/Tx/Re-eval Clinical Impression(s) from Imaging Studies Foot X-Ray 10/01/20 18:40 IMPRESSION: No acute fracture or dislocation in the left foot. Calcaneal plantar spur. No radiopaque foreign body. Electronically Signed: Domingo Obregon MD at 19:15 EDT Tel , Service support , - Medical Decision Making Patient appears well and nontoxic. No evidence of acute fracture on x-ray of the ankle or foot. Interpreted by myself. Radiology concurs. Patient be placed in Fredo wrap. Advised on rice therapy. Patient be given podiatry follow- up. Stable at time of discharge. Impression: 1. Left foot sprain ED Disposition - Plan for ED Patient: Disposition: Home or Assisted Living Instructions: R.I.C.E., Treating?Strains and Sprains Referrals: Ayo Arambula DPM [STAFF PHYSICIAN] - 5-7 Days
--- NOTE | 2020-10-01 18:36 | RAD_ITS ---
STUDY: X-RAY - LEFT ANKLE REASON FOR EXAM: Female, 25 years old. Ankle pain TECHNIQUE: 3 view(s) of the ankle. COMPARISON: None. FINDINGS: Normal visualized distal tibia and fibula. Normal medial and lateral malleoli. Normal tibiotalar articulation and ankle mortise. Normal visualized talus and calcaneus. There is mild plantar fascial attachment ossific enthesopathy. The visualized subtalar, talonavicular, calcaneocuboid and tarsal articulations are normal. The soft tissue structures are unremarkable. RAD/Ankle min 3 Views IMPRESSION: Normal x-ray examination of the ankle. Electronically Signed: Benitez Sanz MD at 19:55 EDT Tel , Service support ,
--- NOTE | 2020-10-01 18:40 | RAD_ITS ---
STUDY: X-RAY - LEFT FOOT CLINICAL: Female, 25 years old. foot pain after injury TECHNIQUE: 3 view(s) of the foot. COMPARISON: None. FINDINGS: Please see the impression. RAD/Foot min 3 Views IMPRESSION: No acute fracture or dislocation in the left foot. Calcaneal plantar spur. No radiopaque foreign body. Electronically Signed: Domingo Obregon MD at 19:15 EDT Tel , Service support ,
== END 2020-10-01 19:41 | disposition home or self-care (01) ==
PROVIDERS: Emergency Provider Emergency Medicine
DX: S93.602A Unspecified sprain of left foot, initial encounter (principal); X50.1XXA Overexertion from prolonged static or awkward postures, initial encounter; Y93.9 Activity, unspecified; Y92.89 Other specified places as the place of occurrence of the external cause; Y99.0 Civilian activity done for income or pay; E28.2 Polycystic ovarian syndrome; Z87.891 Personal history of nicotine dependence
CPT/HCPCS: 73610; 73630; 99282

== ENCOUNTER 2022-06-03 21:32 | Emergency (ER) | payer MEDICAID, SELFPAY ==
[2022-06-03 21:32] VITALS: BP 135/83; PULSE 75; RESP 15; TEMP 36.3; O2SAT 96; BMI 39.1
--- NOTE | 2022-06-03 22:47 | EDS_ITS ---
HPI History of Present Illness Chief Complaint: Dental Detail of Chief Complaint: Left lower jaw dental pain. Informant: patient Onset/Context/Timing Onset: Days Context: Gradual Onset Timing: Continuous Current Severity: Mild Maximum Severity: Mild Relieved by: NSAIDs Associated Symptoms Assocated Symptom - Dental: Negative for fever, jaw swelling, face swelling, cold sensitivity or hot sensitivity Narrative Narrative: 26-year-old female no sniffing past medical or surgical history. States that she has had left lower jaw dental pain. The last 4 days. No falls, injury or trauma. No swelling. No fever. No facial swelling. No recent dental work. Prior similar symptoms: No Recent Illness/Hospitalization: No PFSH PFSH Medical History Asthma Contraceptive management PCOS (polycystic ovarian syndrome) Home Medications escitalopram oxalate 10 mg tablet (Lexapro) 10 mg PO DAILY 04/23/22 [History Last Taken Unknown] Allergy/AdvReac Type Severity Reaction Status Date / Time No Known Allergies Allergy Verified 06/03/22 21:36 Surgical History H/O dilation and curettage (~05/18/20) Social History household members: significant other housing: house number of children: 1 current occupational status: employed pets and animals: No Smoking Status: Never smoker second hand exposure: No alcohol intake: never substance use type: does not use caffeine: Yes what type of physical activity do you participate in: none seatbelt use: always do you feel safe at home: Yes 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 Review of Systems ROS Unobtainable: Denies due to encephalopathy Constitutional Constitutional ED: Denies chills or fever(s) Eyes Eyes: Denies blurry vision ENT ENT ED: Denies ear pain, rhinorrhea or sore throat Cardiovascular Cardiovascular: Denies chest pain or palpitations Respiratory/Chest Respiratory/Chest: Denies cough or dyspnea Gastrointestinal Gastrointestinal: Denies abdominal pain Genitourinary Genitourinary ED: Denies dysuria or hematuria Musculoskeletal Musculoskeletal: Denies arthralgias Integumentary Denies abscess Neurologic Neurologic: Denies headache(s) Psychiatric Psychiatric: Denies anxiety or depression Endocrine Endocrinology: Denies cold intolerance Hematologic/Lymphatic Hematologic/Lymphatic: Denies easy bleeding Allergic/Immunologic Allergic/Immunologic ED: Denies mouth swelling or tongue swelling EXAM Physical Exam Narrative Exam Narrative: 26-year-old female no acute distress vital signs stable afebrile. H EENT exam few small cavities. The left lower molars and premolars are nontender. There is no gingival swelling or abscess. She has no trouble opening closing her mouth. The sublingual region is soft and nontender. Posterior pharynx is normal. The jaw is nontender nonswollen. There is no cervical lymphadenopathy or tenderness. Both TMs are unremarkable. Lungs clear to auscultation. Heart regular rhythm no murmur. Abdomen soft nontender. Otherwise exam unremarkable. Const Vital Signs: 06/03/22 21:32 Temperature 97.3 F L Temperature Source Temporal Pulse Rate 75 Respiratory Rate 15 Blood Pressure 135/83 H Blood Pressure Mean 100 Pulse Ox 96 Oxygen Delivery Method Room Air Positive well nourished and well developed; Negative for cachectic, contractures or unkempt General Appearance ED: well developed and NAD; Negative for unkempt, cachectic, contractures or pallor Nutritional Appearance: Negative for cachectic HEENT Reports TM's clear; Denies other Negative for trauma, tenderness or other Face and Sinus: Negative for sinuses nontender Tympanic Membrane ED: Yes TM's clear Mouth ED: Yes oral and palatal mucosa normal, Yes lips normal, Yes tongue normal, Yes salivary gland normal, No mouth trauma, No oral and palatal mucosa abnormal and No salivary gland abnormal Mouth: oral and palatal mucosa normal, lips normal, tongue normal, salivary gland normal, No mouth trauma, No oral and palatal mucosa abnormal and No salivary gland abnormal Teeth and Gingiva: Negative for abnormal tooth and associated gingiva Throat: posterior oropharynx normal Eyes PERRL and EOMs intact bilaterally General Eye ED: Negative for pale conjunctiva or scleral icterus Neck no lymphadenopathy, supple and no JVD General: normal visual inspection; Negative for anterior neck swelling, tenderness or submandibular swelling Lymph Lymphatic: no lymphadenopathy noted; Negative for lymphadenopathy or other Chest Wall inspection of chest normal and palpation of chest normal Resp normal respiratory effort, no retractions and clear to auscultation bilaterally Cardio regular rate, regular rhythm, S1 normal heart sound, S2 normal heart sound and no murmurs Rate: Negative for bradycardia or tachycardic GI normal to inspection, nondistended, normoactive bowel sounds, non-tender, non- distended and no masses Inspection: Negative for other Palpation: Negative for soft Bladder / Kidney Exam: No other Back/Spine no CVA tenderness General Back: Negative for CVA tenderness Cervical Spine: Negative for other Thoracic Spine / Upper Back: Negative for thoracic spinal tenderness Extremity normal to inspection General Extremety ED: Negative for edema or other findings General Extremity: Negative for edema or other findings Neuro oriented x3, moves all extremities and no focal motor deficits Sensorium / Orientation: alert, oriented to person, oriented to place and oriented to time; Negative for orientation impaired Motor Exam: strength 5/5 throughout Psych mental status grossly normal Appearance: Negative for unkempt Attitude: No agitated Mood & Affect: Negative for depressed, anxious or tearful Skin no rashes or lesions noted and no wounds General Skin Exam: Negative for pallor MDM MDM MDM Narrative Medical decision making narrative: 26-year-old female left lower jaw dental pain. Few cavities on her teeth but none that specific area. No dental fracture. No gingival swelling or abscess. No trismus. No facial swelling or lymphadenopathy. Exam benign. She will be instructed follow-up with a dentist. Ice to the area. Motrin and Tylenol for pain. She does not need any antibiotics at this time. Discharge Plan Triage Chief Complaint: Dental ED Provider: Amador Og Dx/Rx/DC Orders Clinical Impression: Pain, dental Instructions: ED Dental Pain Prescriptions: No Action escitalopram oxalate [Lexapro] 10 mg tablet 10 mg PO DAILY Primary Care Provider: Yusuf Gan Referrals: Yusuf Gan DO [Primary Care Provider] - Activity Restrictions/Additional Instructions: Tylenol Motrin for pain. Ice to your left lower jaw. Call your insurance and follow-up with a dentist as soon as possible. Disposition Disposition: Home, Self Care
== END 2022-06-03 23:03 | disposition home or self-care (01) ==
PROVIDERS: Emergency Provider Emergency Medicine; PCP Family Medicine; Visit Provider Emergency Medicine
DX: K08.89 Other specified disorders of teeth and supporting structures (principal); K02.9 Dental caries, unspecified; R68.84 Jaw pain
CPT/HCPCS: 99282

== ENCOUNTER 2022-06-17 08:37 | Emergency (ER) | payer MEDICAID, SELFPAY ==
[2022-06-17 08:37] VITALS: BP 124/77; PULSE 75; RESP 16; TEMP 36; O2SAT 97; BMI 39.1
--- NOTE | 2022-06-17 08:54 | EX.ED.UPPERE ---
HPI History of Present Illness Chief Complaint: Laceration Detail of Chief Complaint: Laceration volar surface right thumb, fat pad Informant: patient Occured/Mechanism Mechanism/Context: Yes other see comment below Comment: Patient states she was putting the cover back on a knife. She sustained laceration to her right thumb. Onset/Context/Timing Onset: Hours Context: Sudden Onset Timing: Intermittent Quality of Pain: - (Presently has no pain) Location: Fat pad right thumb Current Severity: Gone Maximum Severity: Moderate Worsened by: Initial injury Relieved by: Applicable Associated Symptoms Associated Symptoms: Negative for Parasthesia, Weakness or Loss of Funtion Narrative Narrative: Patient is a 26-year-old [id number] woman who presents with laceration volar surface of the right thumb. The laceration is 2.7 cm in length. She denies paresthesia, anesthesia motors. She states she has not had a tetanus shot since [employer] high. 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 She has no other complaints. Review of prior records indicates that patient does not have history of rheumatic fever, SBE or is on immunosuppressive meds. Tetanus Immunization: >10 years Prior similar symptoms: No Recent Illness/Hospitalization: No PFSH PFSH Medical History Asthma Contraceptive management PCOS (polycystic ovarian syndrome) Home Medications escitalopram oxalate 10 mg tablet (Lexapro) 10 mg PO DAILY 04/23/22 [History Last Taken Unknown] Allergy/AdvReac Type Severity Reaction Status Date / Time No Known Allergies Allergy Verified 06/17/22 08:40 Surgical History H/O dilation and curettage (~05/18/20) Social History household members: significant other housing: house number of children: 1 current occupational status: employed pets and animals: No Smoking Status: Never smoker second hand exposure: No alcohol intake: never substance use type: does not use caffeine: Yes what type of physical activity do you participate in: none seatbelt use: always do you feel safe at home: Yes 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: 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 ROS ED Constitutional Constitutional ED: Denies chills or fever(s) Integumentary Reports other Details: Laceration that is linear fat pad right thumb ; Denies Abrasions or rash Neurologic Neurologic: Denies paresthesias or weakness Hematologic/Lymphatic Hematologic/Lymphatic: Denies easy bleeding, easy bruising or lymphadenopathy EXAM Physical Exam Const Vital Signs: 06/17/22 08:37 Temperature 96.8 F L Temperature Source Temporal Pulse Rate 75 Respiratory Rate 16 Blood Pressure 124/77 H Blood Pressure Mean 92 Pulse Ox 97 Oxygen Delivery Method Room Air Positive well nourished, well developed and obese General Appearance ED: well developed and NAD; Negative for cyanotic or diaphoretic Nutritional Appearance: obese HEENT Reports moist mucous membranes normocephalic and atraumatic Eyes PERRL and EOMs intact bilaterally Neck full ROM Resp normal respiratory effort Cardio regular rate and regular rhythm Extremity Negative for normal to inspection Extremity Narrative: Linear lacerations 2.7 cm in length fat pad of the right thumb. There is no neurovascular findings. Median, radial and ulnar function intact. Neuro oriented x3, CN's II-XII intact bilaterally, moves all extremities, no focal motor deficits and no sensory deficits noted Sensorium / Orientation: alert Psych mental status grossly normal Skin Skin Narrative: Laceration 2.7 cm that is a linear laceration. Lesions: No no lesions Rashes: No no rashes MDM MDM MDM Narrative Medical decision making narrative: Patient has a wound that can be closed with Dermabond. She has no contraindication. Tetanus was updated. Procedures Other Procedures Procedure(s): Patient has a 2.7 cm laceration volar surface right thumb. There is no evidence of infection. Wound was cleansed. The laceration was repaired using Dermabond. Patient tolerated procedure well. Tetanus was updated. Discharge Plan Triage Chief Complaint: Laceration ED Provider: Fam Preciado Dx/Rx/DC Orders Clinical Impression: Laceration of right thumb without complication, PCOS (polycystic ovarian syndrome) Instructions: ED Laceration, Extremity: Skin Glue Prescriptions: No Action escitalopram oxalate [Lexapro] 10 mg tablet 10 mg PO DAILY Primary Care Provider: Yusuf Gan Referrals: Yusuf Gan DO [Primary Care Provider] - As Needed Disposition Disposition: Home, Self Care
[2022-06-17] MEDS: Diphth,Pertuss(Acell),Tet Vac 0.5 ML Vial IM (09:03)
== END 2022-06-17 09:09 | disposition home or self-care (01) ==
PROVIDERS: Emergency Provider Emergency Medicine; PCP Family Medicine; Visit Provider Emergency Medicine
DX: S61.011A Laceration without foreign body of right thumb without damage to nail, initial encounter (principal); W26.0XXA Contact with knife, initial encounter; Z23 Encounter for immunization; E28.2 Polycystic ovarian syndrome; E66.9 Obesity, unspecified; Z79.899 Other long term (current) drug therapy
CPT/HCPCS: 12002; 90715; 99283

== ENCOUNTER 2022-06-18 15:30 | Emergency (ER) | payer MEDICAID, SELFPAY ==
[2022-06-18 15:30] VITALS: BP 120/70; PULSE 100; RESP 16; TEMP 36.6; O2SAT 99; BMI 39.1
--- NOTE | 2022-06-18 16:07 | EX.ED.UPPERE ---
HPI History of Present Illness HPI Narrative: Patient presents with laceration to her right thumb that occurred yesterday. Patient was seen here yesterday and had Dermabond applied. Patient states that the Dermabond has cracked and opened up. Patient states the wound margins are starting to open up. Patient denies any bleeding. Patient denies any paresthesias or weakness. Patient denies any new injuries. Patient states she has some mild dull pain in her right thumb. Patient states it is worse with movement. Patient states her last tetanus was yesterday. Chief Complaint: Laceration Onset/Context/Timing Onset: Yesterday Context: Sudden Onset Timing: Continuous Quality of Pain: Dull Location: Right thumb Associated Symptoms Associated Symptoms: Negative for Parasthesia, Weakness or Loss of Funtion Narrative Tetanus Immunization: <5 years [facility] Medical History Asthma Contraceptive management PCOS (polycystic ovarian syndrome) Home Medications escitalopram oxalate 10 mg tablet (Lexapro) 10 mg PO DAILY 04/23/22 [History Last Taken Unknown] Allergy/AdvReac Type Severity Reaction Status Date / Time No Known Allergies Allergy Verified 06/18/22 15:32 Surgical History H/O dilation and curettage (~05/18/20) Social History household members: significant other housing: house number of children: 1 current occupational status: employed pets and animals: No Smoking Status: Never smoker second hand exposure: No alcohol intake: never substance use type: does not use caffeine: Yes what type of physical activity do you participate in: none seatbelt use: always do you feel safe at home: Yes 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: 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 ROS ED Constitutional Constitutional ED: Denies chills or fever(s) Eyes Eyes: Denies blurry vision or change in vision ENT ENT ED: Denies rhinorrhea or sore throat Cardiovascular Cardiovascular: Denies chest pain or palpitations Respiratory/Chest Respiratory/Chest: Denies cough or dyspnea Gastrointestinal Gastrointestinal: Denies nausea or vomiting Genitourinary Genitourinary ED: Denies dysuria or hematuria Musculoskeletal Musculoskeletal: Denies back pain or neck pain Integumentary Denies abscess or rash Neurologic Neurologic: Denies headache(s) or weakness Allergic/Immunologic Allergic/Immunologic ED: Denies mouth swelling or urticaria EXAM Physical Exam Const Vital Signs: 06/18/22 15:30 Temperature 97.8 F Temperature Source Temporal Pulse Rate 100 Respiratory Rate 16 Blood Pressure 120/70 Blood Pressure Mean 86 Pulse Ox 99 Oxygen Delivery Method Room Air Positive well nourished, well developed and obese General Appearance ED: well developed and NAD Nutritional Appearance: obese HEENT Reports moist mucous membranes Neck full ROM and supple Extremity Extremity Narrative: There is a 2.7 cm superficial linear laceration over the pad of the right thumb. There is no active bleeding. There is minimal gapping of the wound margins. There are no foreign bodies noted. There is Dermabond in place on the skin. Capillary refill was less than 2 seconds in all digits. Sensation was intact to light touch in all digits. Strength is 5/5 in flexion and extension of the IP and MP joints of the right thumb. Neuro oriented x3, CN's II-XII intact bilaterally, moves all extremities, no focal motor deficits and no sensory deficits noted Sensorium / Orientation: alert Motor Exam: strength 5/5 throughout MDM MDM MDM Narrative Medical decision making narrative: The wound was cleaned. Steri-Strips were applied. Patient was instructed to keep the area clean and dry. Patient was instructed to follow-up with her primary care physician in 5 to 7 days. Patient understood and was agreeable with plan. All questions were answered. Discharge Plan Triage Chief Complaint: Laceration ED Provider: Jared Camara Dx/Rx/DC Orders Clinical Impression: Laceration of right thumb without complication, PCOS (polycystic ovarian syndrome) Instructions: ED Laceration Small or ... Prescriptions: No Action escitalopram oxalate [Lexapro] 10 mg tablet 10 mg PO DAILY Primary Care Provider: Yusuf Gan Referrals: Yusuf Gan DO [Primary Care Provider] - 5-7 Days Disposition Disposition: Home, Self Care
== END 2022-06-18 16:29 | disposition home or self-care (01) ==
LOC: ED 16:25
PROVIDERS: Emergency Provider Emergency Medicine; PCP Family Medicine; Visit Provider Emergency Medicine
DX: S61.011D Laceration without foreign body of right thumb without damage to nail, subsequent encounter (principal); E28.2 Polycystic ovarian syndrome; X58.XXXD Exposure to other specified factors, subsequent encounter
CPT/HCPCS: 99283

== ENCOUNTER → 2022-07-01 | Outpatient (CLI) | payer MEDICAID, SELFPAY ==
[2022-07-05 16:13] LABS: HPV Reflexed? NOT INDICATED
== END | disposition home or self-care (01) ==
LOC: LABSPEC 16:05
PROVIDERS: PCP Family Medicine; Referring Provider Nurse Practitioner Women's Health; Visit Provider Nurse Practitioner Women's Health
DX: Z12.4 Encounter for screening for malignant neoplasm of cervix (principal)
CPT/HCPCS: 88175; G0145

== ENCOUNTER 2022-07-23 17:12 | Emergency (ER) | payer MEDICAID, SELFPAY ==
[2022-07-23 17:12] VITALS: BP 134/78; PULSE 78; RESP 16; TEMP 36.6; O2SAT 99; BMI 37.2
--- NOTE | 2022-07-23 19:05 | ED.VIS.GI ---
HPI HPI - GI History of Present Illness Chief Complaint: Abd Pain Informant: patient Abdominal Pain/Flank Pain Onset: Hours (2) Context: Sudden Onset Timing: Continuous Quality: Aching, Cramping and Sharp Location: RUQ Worsened by: - (Nausea) Relieved by: - (Pushing on her right upper abdomen and bending forward) Nausea/Vomiting/Emesis GI Symptom: Positive for Nausea; Negative for Vomiting Diarrhea/Melena/Hematochezia GI Symptom: Negative for Diarrhea, Melena or Hematochezia Associated Symptoms Associated Symptoms: Negative for Dysuria, Frequency or Hematuria LMP: Yesterday Narrative Narrative: Patient presents with right upper quadrant abdominal pain that began approximately 2 hours prior to arrival. Patient states the pain is localized to the right upper quadrant. Patient states she last ate approximately 4 hours prior to arrival. Patient states the pain began rather suddenly. Patient admits to some nausea but denies any vomiting. Patient denies any diarrhea, melena, or hematochezia. Patient states her pain gets worse when her nausea comes on. Patient states it is better whenever she is able to push in the right upper quadrant and bend forward. Patient denies any urinary complaints. Patient denies any abnormal vaginal bleeding or discharge. Patient admits to some subjective chills. [facility] Medical History Asthma PCOS (polycystic ovarian syndrome) Home Medications escitalopram oxalate 10 mg tablet (Lexapro) 10 mg PO DAILY 04/23/22 [History Last Taken Unknown] omeprazole 20 mg capsule,delayed release 20 mg PO DAILY #30 CAPSULES 07/23/22 [Rx Last Taken Unknown] ondansetron 4 mg disintegrating tablet 4 mg PO Q8H PRN PRN Nausea #10 tabs 07/23/22 [Rx Last Taken Unknown] Allergy/AdvReac Type Severity Reaction Status Date / Time No Known Allergies Allergy Verified 07/23/22 17:12 Surgical History H/O dilation and curettage (~05/18/20) Social History household members: significant other housing: house number of children: 1 current occupational status: employed pets and animals: No Smoking Status: Never smoker second hand exposure: No alcohol intake: never substance use type: does not use caffeine: Yes what type of physical activity do you participate in: none seatbelt use: always do you feel safe at home: Yes 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: 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 Constitutional Constitutional ED: Reports chills and subjective; Denies fever(s) Eyes Eyes: Denies blurry vision or change in vision ENT ENT ED: Denies rhinorrhea or sore throat Cardiovascular Cardiovascular: Denies chest pain or palpitations Respiratory/Chest Respiratory/Chest: Reports dyspnea; Denies cough Gastrointestinal Gastrointestinal: Reports abdominal pain and nausea; Denies vomiting Genitourinary Genitourinary ED: Denies dysuria or hematuria Musculoskeletal Musculoskeletal: Denies back pain or neck pain Integumentary Denies abscess or rash Neurologic Neurologic: Denies headache(s) or weakness Allergic/Immunologic Allergic/Immunologic ED: Denies mouth swelling or urticaria EXAM Physical Exam Const Vital Signs: 07/23/22 17:12 Temperature 97.8 F Temperature Source Temporal Pulse Rate 78 Respiratory Rate 16 Blood Pressure 134/78 H Blood Pressure Mean 96 Pulse Ox 99 Oxygen Delivery Method Room Air Positive well nourished, well developed and obese General Appearance ED: well developed and NAD Nutritional Appearance: obese HEENT Reports moist mucous membranes Neck supple and no JVD Resp normal respiratory effort and clear to auscultation bilaterally Cardio regular rate, regular rhythm and no murmurs GI normal to inspection, nondistended, normoactive bowel sounds Palpation: soft and tender epigastric, RLQ, RUQ and Mcmillan's sign; Negative for guarding or rebound tenderness present Extremity normal to inspection General Extremety ED: Negative for edema or tenderness General Extremity: Negative for edema Neuro oriented x3, CN's II-XII intact bilaterally and no sensory deficits noted Sensorium / Orientation: alert Motor Exam: strength 5/5 throughout Psych mental status grossly normal Skin no rashes or lesions noted MDM MDM MDM Narrative Medical decision making narrative: Differential diagnosis includes gastric ulcer, cholelithiasis/cholecystitis, gastritis, pancreatitis, hepatitis, bowel obstruction, and bowel perforation. CBC will be obtained to assess for leukocytosis and anemia. Comprehensive metabolic profile will be obtained to assess for electrolyte abnormality, renal function, and hepatic function. Lipase will be obtained to assess for pancreatitis. Right upper quadrant ultrasound will be obtained to assess for cholecystitis and cholelithiasis. Serum hCG will be obtained to assess for . Lab Data Lab results narrative: CBC was reviewed and was within normal limits. Comprehensive metabolic profile was reviewed and was essentially within normal limits. Lipase was reviewed and was normal. Serum hCG was reviewed and was negative. Labs: Laboratory Results - last 24 hr 07/23/22 07/23/22 07/23/22 19:10 19:10 19:10 WBC 7.1 RBC 4.51 Hgb 12.5 Hct 37.8 MCV 83.8 MCH 27.7 MCHC 33.1 RDW Std Deviation 38.1 RDW Coeff of Zandra 12.6 Plt Count 281 MPV 9.6 Immature Gran % (Auto) 0.400 Neut % (Auto) 50.4 Lymph % (Auto) 38.8 [place] % (Auto) 7.8 Eos % (Auto) 2.3 Baso % (Auto) 0.3 Absolute Neuts (auto) 3.6 Absolute Lymphs (auto) 2.74 Nucleated RBC % 0 Sodium 141 Potassium 3.7 Chloride 108 H Carbon Dioxide 26.0 Anion Gap 7 BUN 12 Creatinine 0.72 Estim Creat Clear Calc 119.44 Est GFR (MDRD) Af Amer 126 Est GFR (MDRD) Non-Af 104 BUN/Creatinine Ratio 16.7 Glucose 96 Calcium 8.5 Total Bilirubin 0.50 AST 11 L ALT 22 Alkaline Phosphatase 53 Total Protein 6.9 Albumin 3.6 Globulin 3.3 Albumin/Globulin Ratio 1.1 Lipase 145 Serum , Qual NEGATIVE Radiography Diagnostic Testing: Clinical Impression(s) from Imaging Studies Gallbladder Ultrasound 07/23/22 19:09 IMPRESSION: Fatty infiltration of the liver. No other abnormalities are identified. Electronically Signed: Uriah Colorado MD at 20:41 EST , Right upper quadrant ultrasound was reviewed. There is fatty infiltration of the liver. There is no evidence of cholelithiasis or cholecystitis. There is negative sonographic Mcmillan sign. This was interpreted by the radiologist and was also independently interpreted by myself. Treatment and Re-Evaluation Narrative: Patient was given IV fluids, morphine, and Zofran. Patient is feeling better on reevaluation. Patient was advised of her findings. Patient was advised this still could be related to gallbladder function. Patient was also advised that this could be gastritis or early peptic ulcer disease. Patient was given prescriptions for Zofran and omeprazole. Patient was instructed to eat a bland diet. Patient was instructed to avoid fried foods, fatty foods, greasy foods. Patient was instructed to follow-up with her primary care physician in 3 to 5 days for reevaluation. Patient understood and was agreeable with the plan. All questions were answered. Discharge Plan Triage Chief Complaint: Abd Pain ED Provider: Jared Camara Dx/Rx/DC Orders Clinical Impression: Right upper quadrant abdominal pain, Obesity (BMI 30-39.9) Instructions: ED Abdominal Pain Unkn Cause Fem Prescriptions: New omeprazole [omeprazole] 20 mg capsule,delayed release(DR/EC) 20 mg PO DAILY Qty: 30 0RF ondansetron [ondansetron] 4 mg tablet,disintegrating 4 mg PO Q8H PRN PRN (Reason: Nausea) Qty: 10 0RF No Action escitalopram oxalate [Lexapro] 10 mg tablet 10 mg PO DAILY Primary Care Provider: Yusuf Gna Referrals: Yusuf Gan DO [Primary Care Provider] - 3-5 Days Disposition Disposition: Home, Self Care
--- NOTE | 2022-07-23 19:09 | US_ITS ---
EXAM: US ABDOMEN LIMITED, RIGHT UPPER QUADRANT CLINICAL INDICATION: PAIN TECHNIQUE: Real-time ultrasound of the right upper quadrant with image documentation. This report was created using [email or web address] report generation technology. COMPARISON: None. FINDINGS: LIVER: The liver measures 17.2 cm in length. Next line the liver is increased in echogenicity. No intrahepatic biliary ductal dilation. GALLBLADDER: Gallbladder wall measures 1 mm. No shadowing gallstone. No pericholecystic fluid. Negative sonographic Mcmillan''s sign. COMMON BILE DUCT: Common bile duct measures 2 mm. The proximal common bile duct is within normal limits for the patient''s age. PANCREAS: Unremarkable as visualized. No focal abnormality is demonstrated in the pancreas. No pancreatic ductal dilatation. RIGHT KIDNEY: The right kidney measures 10.5 x 4.7 x 6.5 cm. There is no hydronephrosis. No shadowing calculus. No focal lesion or perinephric collection is demonstrated. US/Gallbladder IMPRESSION: Fatty infiltration of the liver. No other abnormalities are identified. Electronically Signed: Uriah Colorado MD at 20:41 EST ,
[2022-07-23] MEDS: Ondansetron 4 MG/2 ML Vial IV (19:19)
[2022-07-23] MEDS: Morphine 4 MG/ML Syringe IV (19:19)
[2022-07-23] MEDS: 0.9% Normal Saline 1,000 ML 1000 ML IV (19:20)
[2022-07-23 19:44] LABS: Absolute Lymphocyte Count 2.74 X10^3/uL (0.83-4.51); Absolute Neutrophil Count 3.6 X10^3/uL (2.0-7.7); Basophil# 0.02 X10^3/uL; Basophil% 0.3 % (0-1); Eosinophil# 0.16 X10^3/uL; Eosinophils% 2.3 % (0-5); Hematocrit 37.8 % (37-47); Hemoglobin 12.5 g/dL (12.0-15.0); Lymphocyte # 2.74 X10^3/ul (0.83-4.51); Lymphocyte % 38.8 % (19-41); Mean Corp Hgb Conc 33.1 g/dL (32-36); Mean Corpuscular Hgb 27.7 pg (27.0-32.0); Mean Corpuscular Volume 83.8 fL (81-99); Mean Platelet Vol. 9.6 fl (6.2-12.0); Monocyte# 0.55 X10^3/uL; Monocyte% 7.8 % (0-10); NRBC Flagged by Analyzer 0 % (0-5); Neutrophil # 3.57 X10^3/uL (2.7-7.7); Neutrophil % 50.4 % (47-70); Platelet Count 281 K/mm3 (150-450); RBC Distribution Width CV 12.6 % (11.6-14.6); RBC Distribution Width SD 38.1 fl (35.1-43.9); Red Blood Count 4.51 M/mm3 (4.2-5.4); White Blood Count 7.1 K/mm3 (4.4-11.0)
[2022-07-23 19:56] LABS: Internal QC Validated? YES +Cl - CLEAR BKGD; Pregnancy, Serum, hCG Quali. NEGATIVE Negative
[2022-07-23 20:02] LABS: ALB/GLOB Ratio 1.1 RATIO (0.9-2.4); AST(SGOT) 11 U/L (15-37); Alanine Aminotransfer ALT/SGPT 22 U/L (13-56); Albumin, Serum 3.6 g/dL (3.2-5.0); Alkaline Phosphatase 53 U/L (45-117); Anion Gap 7 (5-15); BUN 12 mg/dL (7-18); BUN/Creat Ratio 16.7 RATIO (10-20); Calcium,Total 8.5 mg/dL (8.5-10.1); Chloride 108 mmol/L (98-107); Creatinine, Serum 0.72 mg/dL (0.55-1.02); EST Glomerular Filtration Rate 104 mL/min (>60); Est Glom Filt Rate - Afr Amer 126 mL/min (>60); Estimated Creatinine Clearance 119.44 ml/min; Globulin 3.3 g/dL (2.2-4.2); Glucose 96 mg/dL (74-106); Lipase 145 U/L (73-393); Potassium 3.7 mmol/L (3.5-5.1); Protein, Total 6.9 g/dL (6.4-8.2); Sodium Level 141 mmol/L (136-145)
[2022-07-23 21:15] VITALS: BP 136/78; PULSE 69; RESP 18; O2SAT 100
== END 2022-07-23 21:17 | disposition home or self-care (01) ==
PROVIDERS: Emergency Provider Emergency Medicine; PCP Family Medicine; Visit Provider Emergency Medicine
DX: R10.11 Right upper quadrant pain (principal); R11.0 Nausea; E66.9 Obesity, unspecified
CPT/HCPCS: 76705; 80053; 83690; 84703; 85025; 96361; 96374; 96375; 99283; J7030; A4216; J2405

== ENCOUNTER 2022-09-01 18:07 | Emergency (ER) | payer MEDICAID, SELFPAY ==
[2022-09-01 18:08] VITALS: BP 146/79; PULSE 85; RESP 18; TEMP 35.9; O2SAT 98; BMI 38.1
[2022-09-01 18:31] LABS: Mucous, Urine 0 SEEN /hpf (<or=2+)
--- NOTE | 2022-09-01 18:32 | EDS_ITS ---
HPI HPI - Female History of Present Illness Chief Complaint: Abd Pain Narrative Narrative: 27-year-old female presenting with lower abdominal cramping. She reports she had diarrhea for the last 3 days. She states she is now feeling a little lightheaded and nauseous. She has been able to eat and drink okay. She not had a fever. No urinary complaints. She does not have a cough or shortness of breath. Patient does also state that she had a IUD placed by her lung splitter. She states that she still has small amount of spotting since this was placed. This is mostly after sexual intercourse. Patient just had her 6 weeks checkup and her lung splitter that this is looking very well. [facility] Medical History Asthma PCOS (polycystic ovarian syndrome) Physical exam, pre-employment Home Medications escitalopram oxalate 10 mg tablet (Lexapro) 10 mg PO DAILY 04/23/22 [History Last Taken Unknown] omeprazole 20 mg capsule,delayed release 20 mg PO DAILY #30 CAPSULES 07/23/22 [Rx Last Taken Unknown] ondansetron 4 mg disintegrating tablet 4 mg PO Q8H PRN PRN Nausea #10 tabs 07/23/22 [Rx Last Taken Unknown] Allergy/AdvReac Type Severity Reaction Status Date / Time No Known Allergies Allergy Verified 09/01/22 18:09 Surgical History H/O dilation and curettage (~05/18/20) Social History household members: significant other housing: house number of children: 1 current occupational status: employed pets and animals: No Smoking Status: Never smoker second hand exposure: No alcohol intake: never substance use type: does not use caffeine: Yes what type of physical activity do you participate in: none seatbelt use: always do you feel safe at home: Yes 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: 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 ED Constitutional Constitutional ED: Denies chills or fever(s) Eyes Eyes: Denies change in vision or diplopia ENT ENT ED: Denies rhinorrhea or sore throat Cardiovascular Cardiovascular: Denies chest pain or palpitations Respiratory/Chest Respiratory/Chest: Denies cough or dyspnea Gastrointestinal Gastrointestinal: Reports abdominal pain, diarrhea and nausea; Denies vomiting Genitourinary Genitourinary ED: Denies dysuria or hematuria Musculoskeletal Musculoskeletal: Denies arthralgias Integumentary Denies abscess Neurologic Neurologic: Denies headache(s) or paresthesias Psychiatric Psychiatric: Denies anxiety or depression EXAM Physical Exam Const Vital Signs: 09/01/22 18:08 Temperature 96.7 F L Temperature Source Temporal Pulse Rate 85 Respiratory Rate 18 Blood Pressure 146/79 H Blood Pressure Mean 101 Pulse Ox 98 Oxygen Delivery Method Room Air Positive well nourished and obese Nutritional Appearance: obese HEENT Reports TM's clear and moist mucous membranes Tympanic Membrane ED: Yes TM's clear Eyes PERRL and EOMs intact bilaterally Resp normal respiratory effort Cardio regular rate and regular rhythm GI soft to palpation, non-distended and no masses Palpation: Negative for guarding, rigid or hepatomegaly Neuro oriented x3 and CN's II-XII intact bilaterally Sensorium / Orientation: alert Psych mental status grossly normal Skin no rashes or lesions noted MDM MDM MDM Narrative Medical decision making narrative: Patient presenting with nausea, diarrhea, lightheadedness. Abdominal exam is benign. She is a history of PCOS but is describing cramping and diarrhea. I think this is most likely something viral. I will check a urinalysis and some basic lab work. Patient was given a liter of normal saline, Zofran. CBC and BMP will be obtained to assess white blood cell count, hemoglobin, platelets, renal function, electrolytes. Urinalysis and hCG will be obtained as well. CBC within normal limits. BMP shows normal renal function electrolytes however there are some prerenal azotemia. Patient was given a liter normal saline. Urinalysis negative for infection. test negative. I do not believe the patient needs any imaging. She is feeling better with Zofran. I recommend she follow-up with her lung splitter for the spotting due to her IUD. Patient minimal to this. She is discharged home in stable condition. Impression: 1. Abdominal cramping 2. Nausea 3. Lightheadedness Lab Data Labs: Laboratory Results - last 24 hr 09/01/22 09/01/22 09/01/22 18:25 18:45 18:45 WBC 10.1 RBC 4.83 Hgb 13.6 Hct 40.1 MCV 83.0 MCH 28.2 MCHC 33.9 RDW Std Deviation 38.0 RDW Coeff of Zandra 12.6 Plt Count 341 MPV 9.2 Immature Gran % (Auto) 0.500 Neut % (Auto) 57.0 Lymph % (Auto) 34.1 [place] % (Auto) 5.7 Eos % (Auto) 2.2 Baso % (Auto) 0.5 Absolute Neuts (auto) 5.8 Absolute Lymphs (auto) 3.44 Nucleated RBC % 0 Sodium 136 Potassium 3.7 Chloride 108 H Carbon Dioxide 21.0 Anion Gap 7 BUN 15 Creatinine 0.70 Estim Creat Clear Calc 122.86 Est GFR (MDRD) Af Amer 129 Est GFR (MDRD) Non-Af 107 BUN/Creatinine Ratio 21.3 H Glucose 95 Calcium 8.8 Urine Color Yellow Urine Clarity Sl Cloudy Urine pH 5.0 Ur Specific [place] 1.025 Urine Protein 15 H Urine Glucose (UA) Normal Urine Ketones Negative Urine Occult Blood 250 H Urine Nitrite Negative Urine Bilirubin Negative Urine Urobilinogen Normal Ur Leukocyte Esterase 100 H Urine RBC 5-10 SEEN Urine WBC 5-10 SEEN Ur Squamous Epith Cells 0-5 SEEN Urine Bacteria 1+ Urine Mucus 0 SEEN Urine Test Negative Discharge Plan Triage Chief Complaint: Abd Pain Other Complaint: Female C/O ED Provider: Matti Benson Dx/Rx/DC Orders Prescriptions: No Action escitalopram oxalate [Lexapro] 10 mg tablet 10 mg PO DAILY omeprazole [omeprazole] 20 mg capsule,delayed release(DR/EC) 20 mg PO DAILY Qty: 30 0RF ondansetron [ondansetron] 4 mg tablet,disintegrating 4 mg PO Q8H PRN PRN (Reason: Nausea) Qty: 10 0RF Primary Care Provider: Yusuf Gan Referrals: Yusuf Gan DO [Primary Care Provider] - Disposition Disposition: Home, Self Care
[2022-09-01 18:53] LABS: Absolute Lymphocyte Count 3.44 X10^3/uL (0.83-4.51); Absolute Neutrophil Count 5.8 X10^3/uL (2.0-7.7); Basophil# 0.05 X10^3/uL; Basophil% 0.5 % (0-1); Eosinophil# 0.22 X10^3/uL; Eosinophils% 2.2 % (0-5); Hematocrit 40.1 % (37-47); Hemoglobin 13.6 g/dL (12.0-15.0); Lymphocyte # 3.44 X10^3/ul (0.83-4.51); Lymphocyte % 34.1 % (19-41); Mean Corp Hgb Conc 33.9 g/dL (32-36); Mean Corpuscular Hgb 28.2 pg (27.0-32.0); Mean Platelet Vol. 9.2 fl (6.2-12.0); Monocyte# 0.57 X10^3/uL; Monocyte% 5.7 % (0-10); NRBC Flagged by Analyzer 0 % (0-5); Neutrophil # 5.75 X10^3/uL (2.7-7.7); Platelet Count 341 K/mm3 (150-450); RBC Distribution Width CV 12.6 % (11.6-14.6); Red Blood Count 4.83 M/mm3 (4.2-5.4); White Blood Count 10.1 K/mm3 (4.4-11.0)
[2022-09-01] MEDS: Ondansetron 4 MG/2 ML Vial IV (18:57)
[2022-09-01] MEDS: 0.9% Normal Saline 1,000 ML 1000 ML IV (18:57)
[2022-09-01 19:02] LABS: Glucose, Dipstick Normal (Normal); Ketone-Dipstick Negative (Negative); Leukocyte Esterase-Dipstick 100 /ul (Negative); Nitrite-Dipstick Negative (Negative); Occult Blood-Urine 250 /ul (Negative); Protein-Dipstick 15 mg/dl (Negative); Specific Gravity, Urine 1.025 (1.002-1.030); Urine Bilirubin Dipstick Negative (Negative); Urine Urobilinogen Normal (Normal)
[2022-09-01 19:04] LABS: Internal QC Validated? YES +Cl - CLEAR BKGD
[2022-09-01 19:05] LABS: Pregnancy, Urine Negative Negative
[2022-09-01 19:12] LABS: Color, Urine Yellow (Yellow); Red Blood Cells-Urine 5-10 SEEN /hpf (0-5); Urine Clarity Sl Cloudy (Clear); White Blood Cells 5-10 SEEN /hpf (0-5)
[2022-09-01 19:13] LABS: Bacteria 1+ /hpf (None Seen); Squamous Epithelial Cells - UA 0-5 SEEN /hpf (5-10)
[2022-09-01 19:16] LABS: Anion Gap 7 (5-15); BUN 15 mg/dL (7-18); BUN/Creat Ratio 21.3 RATIO (10-20); Calcium,Total 8.8 mg/dL (8.5-10.1); Chloride 108 mmol/L (98-107); EST Glomerular Filtration Rate 107 mL/min (>60); Est Glom Filt Rate - Afr Amer 129 mL/min (>60); Estimated Creatinine Clearance 122.86 ml/min; Glucose 95 mg/dL (74-106); Potassium 3.7 mmol/L (3.5-5.1); Sodium Level 136 mmol/L (136-145)
== END 2022-09-01 22:16 | disposition home or self-care (01) ==
PROVIDERS: Emergency Provider Student in an Organized Health Care Education/Training Program; PCP Family Medicine; Visit Provider Student in an Organized Health Care Education/Training Program
DX: R10.9 Unspecified abdominal pain (principal); R42 Dizziness and giddiness; R11.0 Nausea; R19.7 Diarrhea, unspecified; J45.909 Unspecified asthma, uncomplicated; E66.9 Obesity, unspecified
CPT/HCPCS: 80048; 81001; 81025; 85025; 96361; 96374; 96375; 99282; J7030; A4216; J2405

== ENCOUNTER 2022-10-29 21:09 | Emergency (ER) | payer MEDICAID, SELFPAY ==
[2022-10-29 21:10] VITALS: BP 128/77; PULSE 96; RESP 15; TEMP 36.5; O2SAT 98; BMI 40.1
--- NOTE | 2022-10-29 23:03 | EDS_ITS ---
HPI History of Present Illness Chief Complaint: Eye Problem Narrative Narrative: Patient presents with right eye irritation. She is on her second day of some irritation and itching and redness of the right eye. No visual loss or change. She states she put drops in tonight and it burned when she put them in. That is what prompted her to come in. The burning is now gone. Both her child and both have pinkeye and are both being treated. Other than the right eye she feels fine. She has no known allergies. [facility] Medical History Anxiety Asthma PCOS (polycystic ovarian syndrome) Physical exam, pre-employment Home Medications escitalopram oxalate 10 mg tablet (Lexapro) 20 mg PO DAILY 10/17/22 [History Last Taken Unknown] Allergy/AdvReac Type Severity Reaction Status Date / Time No Known Allergies Allergy Verified 10/29/22 21:13 Surgical History H/O dilation and curettage (~05/18/20) Social History household members: significant other housing: house number of children: 1 current occupational status: employed pets and animals: No Smoking Status: Never smoker second hand exposure: No alcohol intake: never substance use type: does not use caffeine: Yes what type of physical activity do you participate in: none seatbelt use: always do you feel safe at home: Yes 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: 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 HEENT shows no facial rash. No erythema. No swelling. No sinus tenderness. Nasal passages are clear. Oropharynx is normal. No tenderness along the tragus. No temporal artery tenderness. Overall normal exam. Eyes: Left eye is normal. Right does show diffuse conjunctival injection. But there is no discharge at this time. Cornea is clear. Pupil is normal. No photophobia. No APD. No lid swelling. No indication of a stye with eversion. Neck shows no lymphadenopathy Lungs are clear bilaterally and saturations normal at 98% on room air. Heart is regular. Extremities show no rashes. Const Vital Signs: 10/29/22 21:10 Temperature 97.7 F L Temperature Source Temporal Pulse Rate 96 Respiratory Rate 15 Blood Pressure 128/77 H Blood Pressure Mean 94 Pulse Ox 98 Oxygen Delivery Method Room Air MDM MDM MDM Narrative Medical decision making narrative: Patient is placed ofloxacin drops in the eye. When she did this it burned. I explained that she likely has a viral pinkeye. The majority of these are viral. She has no significant discharge that would point more toward bacterial. In fact at this time there is no discharge at all. She has pinkeye that started after both her and her child got pinkeye. I do not think she needs an tibiotic drops for this. I think she can use [id number] moisturizing drops. If she has visual loss, pain, headaches, vomiting, swelling of eyelids or any rashes externally she should return. Discharge Plan Triage Chief Complaint: Eye Problem ED Provider: Vinh Story Dx/Rx/DC Orders Clinical Impression: [place] eye disease of right eye Instructions: ED Conjunctivitis, Viral Prescriptions: No Action escitalopram oxalate [Lexapro] 10 mg tablet 20 mg PO DAILY Primary Care Provider: Yusuf Gan Referrals: Yusuf Gan DO [Primary Care Provider] - Rock De La Rosa MD [Med Staff - Active Staff] - 3-5 Days if not improving Disposition Disposition: Home, Self Care
[2022-10-29 23:14] VITALS: BP 122/71; PULSE 78; RESP 16; O2SAT 97
== END 2022-10-29 23:15 | disposition home or self-care (01) ==
PROVIDERS: Emergency Provider Emergency Medicine; PCP Family Medicine; Visit Provider Emergency Medicine
DX: H10.021 Other mucopurulent conjunctivitis, right eye (principal); J45.909 Unspecified asthma, uncomplicated
CPT/HCPCS: 99282

== ENCOUNTER 2022-11-02 06:20 | Emergency (ER) | payer MEDICAID, SELFPAY ==
[2022-11-02 06:20] VITALS: BP 141/72; PULSE 70; RESP 18; TEMP 36.6; O2SAT 99; BMI 40.3
--- NOTE | 2022-11-02 06:36 | EX.ED.VIS.EY ---
HPI History of Present Illness Chief Complaint: Eye Problem Informant: patient Narrative Narrative: Patient is a 27-year-old female with past medical history of PCOS. She was seen in the ER on 523 secondary to right eye irritation and pain and had currently been on ofloxacin eyedrops. At home it was felt that she could possibly have an allergic reaction to the ofloxacin or that this was a viral conjunctivitis and therefore she was instructed on just [id number] symptomatic care. Patient states the right eye has not completely resolved but has improved but now she has redness swelling and discharge to the left eye. She denies any trauma or change in vision and she denies any use of contact lenses. However with concern for an infection she presents for evaluation. [facility] Medical History Anxiety Asthma PCOS (polycystic ovarian syndrome) Physical exam, pre-employment Home Medications escitalopram oxalate 10 mg tablet (Lexapro) 20 mg PO DAILY 10/17/22 [History Last Taken Unknown] [id number]-[id number]-[id number] 3.5 mg/mL-10,000 unit/mL-0.1% eye drops (Maxitrol) 2 drp EACH EYE 4X/DAY 7 days #5 mL 11/02/22 [Rx Last Taken Unknown] Allergy/AdvReac Type Severity Reaction Status Date / Time No Known Allergies Allergy Verified 10/29/22 21:13 Surgical History H/O dilation and curettage (~05/18/20) Social History household members: significant other housing: house number of children: 1 current occupational status: employed pets and animals: No Smoking Status: Never smoker second hand exposure: No alcohol intake: never substance use type: does not use caffeine: Yes what type of physical activity do you participate in: none seatbelt use: always do you feel safe at home: Yes 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: 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 Constitutional Constitutional ED: Denies chills or fever(s) Eyes Eyes: Reports other Details: Positive left eye redness discharge and itching ; Denies blurry vision or change in vision ENT ENT ED: Denies sore throat Cardiovascular Cardiovascular: Denies chest pain Respiratory/Chest Respiratory/Chest: Denies cough or dyspnea Gastrointestinal Gastrointestinal: Denies abdominal pain, diarrhea, nausea or vomiting Genitourinary Genitourinary ED: Denies dysuria Musculoskeletal Musculoskeletal: Denies myalgias or neck pain Integumentary Denies rash Neurologic Neurologic: Denies headache(s) Hematologic/Lymphatic Hematologic/Lymphatic: Denies easy bleeding or easy bruising EXAM Physical Exam Const Vital Signs: 11/02/22 06:20 Temperature 97.8 F Temperature Source Oral Pulse Rate 70 Respiratory Rate 18 Blood Pressure 141/72 H Blood Pressure Mean 95 Pulse Ox 99 Oxygen Delivery Method Room Air Positive well nourished, well developed and obese General Appearance ED: well developed Nutritional Appearance: obese HEENT Reports moist mucous membranes Eyes PERRL and EOMs intact bilaterally Eyes Narrative: Left eye has positive scleral injection with purulent discharge and a beefy red and inflamed conjunctiva. The right eye has mild scleral injection with inflamed conjunctiva but no active discharge. Pupils are equal and reactive to light and accommodation. Extraocular muscles are intact. Upper lid was everted there is no foreign body. No obvious abrasion noted Neck supple Neck Narrative: No nuchal rigidity or meningeal signs Resp normal respiratory effort and clear to auscultation bilaterally Cardio regular rate and regular rhythm Extremity normal to inspection Neuro oriented x3 and CN's II-XII intact bilaterally Sensorium / Orientation: alert Psych mental status grossly normal Skin no rashes or lesions noted MDM MDM MDM Narrative Medical decision making narrative: Patient arrived to the ER with stable vitals. Exam shows scleral injection with purulent discharge in the thickened conjunctiva consistent with acute conjunctivitis. The patient denies any recent trauma or contact lens use. There is no change in vision. Differential diagnosis includes viral versus bacterial enteritis versus corneal abrasion versus corneal ulcer or UV keratitis. As patient does not have light sensitivity pain or change in vision this history and exam is most consistent with viral versus bacterial conjunctivitis. At this time with the purulent discharge I do have concern that patient has a bacterial infection and therefore to be placed on Maxitrol ophthalmic eyedrops to prevent infection and reduce inflammation but as she has no signs of systemic infection or globe injury is otherwise safe for discharge. History & Record Review Discussion w/independent historian: Patient Discharge Plan Triage Chief Complaint: Eye Problem ED Provider: Chapo Arroyo Dx/Rx/DC Orders Clinical Impression: Conjunctivitis, PCOS (polycystic ovarian syndrome) Instructions: ED Conjunctivitis, Nonspecific Prescriptions: New neomycin-polymyxin B-dexameth [Maxitrol] 3.5mg/mL-10,000 unit/mL-0.1 % drops,suspension 2 drp EACH EYE 4X/DAY 7 Days Qty: 5 1RF No Action escitalopram oxalate [Lexapro] 10 mg tablet 20 mg PO DAILY Primary Care Provider: Yusuf Gan Referrals: Yusuf Gan DO [Primary Care Provider] - Activity Restrictions/Additional Instructions: Your exam indicate you have a infection of the eye causing redness swelling and discharge. Use the eyedrop as directed to resolve infection and inflammation and it will typically take 2 to 3 days for this to improve. If you do not have any improvement of your symptoms or you have any further concerns please return for repeat evaluation Disposition Disposition: Home, Self Care Discharge Date/Time: 11/02/22 06:50
== END 2022-11-02 06:50 | disposition home or self-care (01) ==
LOC: ED 06:45
PROVIDERS: Emergency Provider Emergency Medicine; PCP Family Medicine; Visit Provider Emergency Medicine
DX: H10.9 Unspecified conjunctivitis (principal); E28.2 Polycystic ovarian syndrome; J45.909 Unspecified asthma, uncomplicated; F41.9 Anxiety disorder, unspecified; E66.9 Obesity, unspecified
CPT/HCPCS: 99282

== ENCOUNTER 2022-11-08 18:48 | Emergency (ER) | payer MEDICAID, SELFPAY ==
[2022-11-08 18:50] VITALS: BP 127/84; PULSE 103; RESP 19; TEMP 36.8; O2SAT 100; BMI 39.9
--- NOTE | 2022-11-08 18:55 | RAD_ITS ---
STUDY: X-RAY - LEFT FOOT CLINICAL: Female, 27 years old. SHELF fell on to left foot while playing with her children. Pain and bruising in the region of the first metatarsophalangeal joint. TECHNIQUE: 3 view(s) of the foot. COMPARISON: None. FINDINGS: There is a plantar calcaneal spur. Normal talus and tarsal bones. Normal visualized subtalar, talonavicular, calcaneocuboid, tarsal and tarsometatarsal articulations. Normal metatarsi. Normal metatarsophalangeal joint of the great toe. Normal tibial and fibular sesamoid bones. Normal interphalangeal joint of the great toe. Normal phalanges of the great toe. Normal second through fifth metatarsophalangeal joints. Normal interphalangeal joints and phalanges of the lesser toes. The soft tissue structures are unremarkable. RAD/Foot min 3 Views IMPRESSION: Plantar spur. There is no acute fracture or dislocation of the left foot. Electronically Signed: Marcin Arnold DO at 19:13 EDT ,
--- NOTE | 2022-11-08 20:03 | EX.ED.DYSGE1 ---
HPI <KARINA Rider - Last Filed: 11/08/22 20:07> History of Present Illness Chief Complaint: Lower Extremity Injury Narrative Narrative: Patient presenting today with pain to the dorsal aspect of her left foot that she has had since this evening. She reports that she was playing with her kids and a bookshelf was knocked over and fell on top of her left foot. She is able to bear weight and ambulate but does have an area of ecchymosis to the top of her foot and wanted to be sure that she did not have a fracture. She denies any other injury. PFSH <KARINA Rider - Last Filed: 11/08/22 20:07> [facility], [facility] Medical History Anxiety Asthma PCOS (polycystic ovarian syndrome) Physical exam, pre-employment Home Medications escitalopram oxalate 10 mg tablet (Lexapro) 20 mg PO DAILY 10/17/22 [History Last Taken Unknown] [id number]-sqiivoubf-iygtoqki 3.5 mg/mL-10,000 unit/mL-0.1% eye drops (Maxitrol) 2 drp EACH EYE 4X/DAY 7 days #5 mL 11/02/22 [Rx Last Taken Unknown] Allergy/AdvReac Type Severity Reaction Status Date / Time No Known Allergies Allergy Verified 11/08/22 18:51 Surgical History H/O dilation and curettage (~05/18/20) Social History household members: significant other housing: house number of children: 1 current occupational status: employed pets and animals: No Smoking Status: Never smoker second hand exposure: No alcohol intake: never substance use type: does not use caffeine: Yes what type of physical activity do you participate in: none seatbelt use: always do you feel safe at home: Yes 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: 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 <KARINA Rider - Last Filed: 11/08/22 20:07> ROS ED Constitutional Constitutional ED: Denies chills or fever(s) Cardiovascular Cardiovascular: Denies chest pain Respiratory/Chest Respiratory/Chest: Denies cough or dyspnea Gastrointestinal Gastrointestinal: Denies abdominal pain, nausea or vomiting Musculoskeletal Musculoskeletal: Reports arthralgias; Denies back pain, myalgias or neck pain Integumentary Denies abscess or Abrasions Neurologic Neurologic: Denies paresthesias or weakness EXAM <KARINA Rider - Last Filed: 11/08/22 20:07> Physical Exam Const Vital Signs: 11/08/22 18:50 Temperature 98.2 F Temperature Source Temporal Pulse Rate 103 H Respiratory Rate 19 H Blood Pressure 127/84 H Blood Pressure Mean 98 Pulse Ox 100 Oxygen Delivery Method Room Air Positive well nourished, well developed and no apparent distress General Appearance ED: well developed HEENT Reports normocephalic and head/scalp atraumatic Mouth ED: Yes moist mucous membranes normal Eyes PERRL and EOMs intact bilaterally Neck full ROM and supple Chest Wall inspection of chest normal Resp normal respiratory effort and clear to auscultation bilaterally Cardio regular rate and regular rhythm GI soft to palpation, non-tender, non-distended and no masses Back/Spine normal ROM and normal to inspection Extremity normal to inspection and full ROM Extremity Narrative: small area of ecchymosis to the dorsal aspect of the L foot. Pulses 2+ and equal bilaterally, good capillary refill, sensation intact. Neuro oriented x3, CN's II-XII intact bilaterally, moves all extremities, no focal motor deficits and no sensory deficits noted Sensorium / Orientation: awake and alert Psych mental status grossly normal and thought process normal Skin no rashes or lesions noted and no wounds <Dr. Martin Crook DO - Last Filed: 11/08/22 22:44> Physical Exam Const Vital Signs: 11/08/22 18:50 Temperature 98.2 F Temperature Source Temporal Pulse Rate 103 H Respiratory Rate 19 H Blood Pressure 127/84 H Blood Pressure Mean 98 Pulse Ox 100 Oxygen Delivery Method Room Air MDM <KARINA Rider - Last Filed: 11/08/22 20:07> [facility] Narrative Medical decision making narrative: Patient presenting after a bookshelf fell on top of her left foot. She is able to ambulate and bear weight, she does have a small area of ecchymosis to the dorsal aspect of her left foot. X-ray obtained to rule out fracture or dislocation and is negative for any acute findings. She has been given RICE instructions and supportive care measures for her foot contusion. She will be discharged home in stable condition and is comfortable with plan. Radiography Diagnostic Testing: Clinical Impression(s) from Imaging Studies Foot X-Ray 11/08/22 18:55 IMPRESSION: Plantar spur. There is no acute fracture or dislocation of the left foot. Electronically Signed: Marcin Arnold DO at 19:13 EDT Reading Location ID and State: [id number] / [place] Tel [phone], Service support , <Dr. Martin Crook, DO - Last Filed: 11/08/22 22:44> [facility] Radiography Diagnostic Testing: Clinical Impression(s) from Imaging Studies Foot X-Ray 11/08/22 18:55 IMPRESSION: Plantar spur. There is no acute fracture or dislocation of the left foot. Electronically Signed: Marcin Arnold DO at 19:13 EDT Reading Location ID and State: [place] / [place] Tel [phone], Service support , Personally reviewed the patient's x-ray. X-ray left foot shows no evidence of fracture dislocation Treatment and Re-Evaluation :: ED attending note: I evaluated the patient in conjunction with the LISA. I agree with his/her statements and above findings. I have personally performed a face to face assessment of the patient and have reviewed the LISA Note. I performed a substantive portion of the visit including all aspects of the following. I personally saw the patient performed chart review, physical exam, reviewed labs, imaging (if obtained), and formulated a treatment and management plan. Exam: Nursing triage notes reviewed, Vital signs reviewed Constitutional: please see mdm Extremities: No edema, compartments are soft Neuro: Intact sensation L1-S1 dermatomal distributions. Intact 5/5 strength in hip flexion (T12-L3). Knee extension (L2-L4). Ankle dorsiflexion (L4-L5). Ankle plantar flexion (S1). Great toe extension (L5). 2+ patellar and Achilles DTRs. Skin: No rash or lesions noted, no evidence of open fracture MDM/plan: Chief Complaint: Left foot pain External records reviewed: X-ray of the left foot from 2020 shows no acute fracture dislocation I considered the following differential diagnosis: Foot fracture, dislocation, contusion X-ray showed no evidence of fracture dislocation. Patient is likely suffering from a bone contusion. RICE instructions were given. Patient expressed understanding. Factors affecting care: History of PCOS Social determinants of health:Never smoker History obtained from others: None Shared decision making: I will have a discussion with the patient and or visitors regarding risk/benefits of further testing or admission. They will be made aware of of the risk/benefits inherent in this decision they will be given the opportunity to voice understanding. Consults: None Discharge Plan Triage Chief Complaint: Lower Extremity Injury ED Midlevel Provider: Frances Houser ED Provider: Martin Crook Dx/Rx/DC Orders Clinical Impression: Contusion of foot Instructions: ED Contusion, Lower Extremity Prescriptions: No Action escitalopram oxalate [Lexapro] 10 mg tablet 20 mg PO DAILY neomycin-polymyxin B-dexameth [Maxitrol] 3.5mg/mL-10,000 unit/mL-0.1 % drops,suspension 2 drp EACH EYE 4X/DAY 7 Days Qty: 5 1RF Primary Care Provider: Yusuf Gan Referrals: Yusuf Gan DO [Primary Care Provider] - 5-7 Days Activity Restrictions/Additional Instructions: Rest your foot, avoid tight fitting shoes, ice your foot several times a day for the next few days, keep it elevated to help with swelling. Disposition Disposition: Home, Self Care Discharge Date/Time: 11/08/22 20:15
== END 2022-11-08 20:15 | disposition home or self-care (01) ==
PROVIDERS: Emergency Provider Emergency Medicine; PCP Family Medicine; Visit Provider Emergency Medicine
DX: S90.32XA Contusion of left foot, initial encounter (principal); J45.909 Unspecified asthma, uncomplicated; W23.1XXA Caught, crushed, jammed, or pinched between stationary objects, initial encounter
CPT/HCPCS: 99281 ×2; 73630; 99282

== ENCOUNTER → 2022-11-13 | Outpatient (CLI) | payer MEDICAID, SELFPAY ==
[2022-11-13 17:38] LABS: hCG Titer Quant., Serum < 1 mIU/mL (1-3)
== END | disposition home or self-care (01) ==
LOC: LAB 15:48
PROVIDERS: PCP Family Medicine; Referring Provider Obstetrics & Gynecology; Visit Provider Obstetrics & Gynecology
DX: N91.2 Amenorrhea, unspecified (principal)
CPT/HCPCS: 36415; 84702

== ENCOUNTER 2022-11-25 20:08 | Emergency (ER) | payer MEDICAID, SELFPAY ==
[2022-11-25 20:09] VITALS: BP 146/83; PULSE 91; RESP 16; TEMP 36.3; O2SAT 99; BMI 40.8
[2022-11-25 20:38] LABS: Absolute Lymphocyte Count 3.41 X10^3/uL (0.83-4.51); Absolute Neutrophil Count 5.3 X10^3/uL (2.0-7.7); Basophil# 0.04 X10^3/uL; Basophil% 0.4 % (0-1); Eosinophil# 0.15 X10^3/uL; Eosinophils% 1.6 % (0-5); Hematocrit 36.2 % (37-47); Hemoglobin 12.5 g/dL (12.0-15.0); Lymphocyte # 3.41 X10^3/ul (0.83-4.51); Mean Corp Hgb Conc 34.5 g/dL (32-36); Mean Corpuscular Hgb 27.7 pg (27.0-32.0); Mean Corpuscular Volume 80.3 fL (81-99); Mean Platelet Vol. 9.2 fl (6.2-12.0); Monocyte# 0.47 X10^3/uL; NRBC Flagged by Analyzer 0 % (0-5); Neutrophil # 5.32 X10^3/uL (2.7-7.7); Neutrophil % 56.3 % (47-70); Platelet Count 315 K/mm3 (150-450); RBC Distribution Width CV 13.1 % (11.6-14.6); RBC Distribution Width SD 37.2 fl (35.1-43.9); Red Blood Count 4.51 M/mm3 (4.2-5.4); White Blood Count 9.5 K/mm3 (4.4-11.0)
--- NOTE | 2022-11-25 20:40 | RAD_ITS ---
EXAM: XR CHEST, 1 VIEW CLINICAL INDICATION: chest pain TECHNIQUE: Frontal view of the chest. COMPARISON: No relevant prior studies available. FINDINGS: LUNGS AND PLEURAL SPACES: Unremarkable. No consolidation or edema. No pneumothorax. No effusion. HEART: Unremarkable. Cardiac silhouette not enlarged. MEDIASTINUM: Central airways and mediastinal contour are unremarkable. BONES/JOINTS: Unremarkable. SOFT TISSUES: Unremarkable. RAD/Chest 1 View (Portable) IMPRESSION: No radiographic evidence of acute cardiopulmonary disease. Electronically Signed: Sandoval Vann MD at 21:08 EDT ,
[2022-11-25 20:49] LABS: Anion Gap 6 (5-15); BUN 14 mg/dL (7-18); BUN/Creat Ratio 20.8 RATIO (10-20); Calcium,Total 9.2 mg/dL (8.5-10.1); Chloride 107 mmol/L (98-107); Creatinine, Serum 0.67 mg/dL (0.55-1.02); EST Glomerular Filtration Rate 112 mL/min (>60); Est Glom Filt Rate - Afr Amer 136 mL/min (>60); Estimated Creatinine Clearance 123.74 ml/min; Glucose 111 mg/dL (74-106); Potassium 3.7 mmol/L (3.5-5.1); Sodium Level 137 mmol/L (136-145); Troponin-I HS (w/2H Reflex) 3 pg/mL (3.0-54.0)
--- NOTE | 2022-11-25 21:05 | EDS_ITS ---
HPI History of Present Illness Chief Complaint: Chest Pain Informant: patient Onset/Context/Timing Onset: Yesterday Quality: Positive for Sharp Location: Right Parasternal Current Severity: Mild Maximum Severity: Moderate Worsened By: Palpation and Breathing Narrative Narrative: Patient presents with focal along the right border of the sternum. Symptoms started yesterday. She reports tenderness to palpation as well as with deep breathing. She does not really feel short of breath just has increased pain when she takes a deep breath. She is currently 7 weeks . No personal or family history of cardiac disease. No history of DVT or PE. [facility] Medical History Anxiety Asthma PCOS (polycystic ovarian syndrome) Physical exam, pre-employment Home Medications escitalopram oxalate 10 mg tablet (Lexapro) 20 mg PO DAILY 10/17/22 [History Last Taken Unknown] olkcvfmr-[id number]-[id number] 3.5 mg/mL-10,000 unit/mL-0.1% eye drops (Maxitrol) 2 drp EACH EYE 4X/DAY 7 days #5 mL 11/02/22 [Rx Last Taken Unknown] prednisone 20 mg tablet 40 mg PO DAILY #8 tabs 11/25/22 [Rx Last Taken Unknown] Allergy/AdvReac Type Severity Reaction Status Date / Time No Known Allergies Allergy Verified 11/18/22 13:45 Surgical History H/O dilation and curettage (~05/18/20) Social History household members: significant other housing: house number of children: 1 current occupational status: employed pets and animals: No Smoking Status: Never smoker second hand exposure: No alcohol intake: never substance use type: does not use caffeine: Yes what type of physical activity do you participate in: none seatbelt use: always do you feel safe at home: Yes 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: 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 [facility] ED Constitutional Constitutional ED: Denies chills or fever(s) Eyes Eyes: Denies change in vision or discharge from eye(s) ENT ENT ED: Denies discharge from eye(s), rhinorrhea or sore throat Cardiovascular Cardiovascular: Reports chest pain; Denies palpitations Respiratory/Chest Respiratory/Chest: Denies cough or dyspnea Gastrointestinal Gastrointestinal: Denies abdominal pain, nausea or vomiting Genitourinary Genitourinary ED: Denies dysuria Musculoskeletal Musculoskeletal: Denies back pain or extremity pain Integumentary Denies Abrasions or rash Neurologic Neurologic: Denies headache(s) or weakness Psychiatric Psychiatric: Denies anxiety or depression Allergic/Immunologic Allergic/Immunologic ED: Denies lip swelling or urticaria EXAM Physical Exam Const Vital Signs: 11/25/22 20:09 11/25/22 20:28 11/25/22 21:12 Temperature 97.4 F L Temperature Source Temporal Pulse Rate 91 94 Respiratory Rate 16 18 Respiratory Effort Normal Non-Labored Blood Pressure 146/83 H 136/76 H Blood Pressure Mean 104 Pulse Ox 99 98 Positive well nourished and well developed General Appearance ED: well developed HEENT Reports normocephalic and head/scalp atraumatic Eyes PERRL and EOMs intact bilaterally Neck supple Chest Wall inspection of chest normal Chest Narrative: Reproducible chest wall pain along the right sternal border. Resp normal respiratory effort and clear to auscultation bilaterally Cardio regular rate and regular rhythm GI normal to inspection, nondistended, normoactive bowel sounds Palpation: soft Extremity normal to inspection Neuro oriented x3 and no sensory deficits noted Sensorium / Orientation: alert Motor Exam: strength 5/5 throughout Psych mental status grossly normal Skin no rashes or lesions noted Heart Score History: Slightly/Non-Suspicious ECG: Normal Age: </= 45 years Risk Factors: No Risk Factors Troponin: </= Normal Limit Score: 0 MDM MDM MDM Narrative Medical decision making narrative: Lab work initiated per nursing protocol. Labwork obtained to evaluate for leukocytosis, anemia, and electrolyte derangement. EKG obtained to evaluate for cardiac arrhythmia/ischemia. Chest x-ray obtained to evaluate for acute lung pathology, cardiac size, or mediastinal abnormality. Lab Data Attestation: I reviewed the patient's lab results. Labs: Laboratory Results - last 24 hr 11/25/22 11/25/22 20:23 20:23 WBC 9.5 RBC 4.51 Hgb 12.5 Hct 36.2 L MCV 80.3 L MCH 27.7 MCHC 34.5 RDW Std Deviation 37.2 RDW Coeff of Zandra 13.1 Plt Count 315 MPV 9.2 Immature Gran % (Auto) 0.700 Neut % (Auto) 56.3 Lymph % (Auto) 36.0 [place] % (Auto) 5.0 Eos % (Auto) 1.6 Baso % (Auto) 0.4 Absolute Neuts (auto) 5.3 Absolute Lymphs (auto) 3.41 Nucleated RBC % 0 Sodium 137 Potassium 3.7 Chloride 107 Carbon Dioxide 24.0 Anion Gap 6 BUN 14 Creatinine 0.67 Estim Creat Clear Calc 123.74 Est GFR (MDRD) Af Amer 136 Est GFR (MDRD) Non-Af 112 BUN/Creatinine Ratio 20.8 H Glucose 111 H Calcium 9.2 Troponin I High Sens 3 Radiography Chest X-Ray - ED: 1 View, Read by ED Physician, Normal, Heart, Lungs and Mediastinum Diagnostic Testing: Clinical Impression(s) from Imaging Studies Chest X-Ray 11/25/22 20:40 IMPRESSION: No radiographic evidence of acute cardiopulmonary disease. Electronically Signed: Sandoval Vann MD at 21:08 EDT Reading Location ID and State: [facility] / [place] , Service support , EKG Initial EKG: Attestation: I personally reviewed and interpreted this EKG as follows: Interpretation: Sinus Rhythm (Sinus 80 with no acute ischemia.) Differential Diagnosis Chest pain/SOB: pulmonary embolism Reason(s) PE less likely: Positive for not tachycardic and not hypoxic and ACS ACS: Positive for no evidence of ACS based on cardiac biomarkers and EKG without ischemia Treatment and Re-Evaluation :: CBC and chemistry studies are unremarkable. Troponin is normal at 3. EKG is sinus rhythm with no acute ischemia. Patient does have reproducible chest wall pain. We discussed the possibility of obtaining a D-dimer to rule out PE, however we discussed that her D-dimer may well be elevated given the fact that she is and has reproducible chest wall pain/costochondritis. She is not tachycardic or hypoxic. I do not believe she has a pulmonary embolism and I do not feel that obtaining a D-dimer and potential CTA of her chest when she is in early would be in her best interest. She will be given prednisone for her costochondritis. She was given strict return instructions. She voices understanding and agreement with the plan. Discharge Plan Triage Chief Complaint: Chest Pain ED Provider: Bernice Kelly Dx/Rx/DC Orders Clinical Impression: Costochondritis Instructions: ED Chest Wall Pain, Costochondritis Prescriptions: New prednisone 20 mg tablet 40 mg PO DAILY Qty: 8 0RF No Action escitalopram oxalate [Lexapro] 10 mg tablet 20 mg PO DAILY neomycin-polymyxin B-dexameth [Maxitrol] 3.5mg/mL-10,000 unit/mL-0.1 % drops,suspension 2 drp EACH EYE 4X/DAY 7 Days Qty: 5 1RF Primary Care Provider: Yusuf Gan Referrals: Yusuf Gan DO [Primary Care Provider] - 1 Week if not improving Disposition Disposition: Home, Self Care Discharge Date/Time: 11/25/22 21:18
[2022-11-25 21:12] VITALS: BP 136/76; PULSE 94; RESP 18; O2SAT 98
[2022-11-25] MEDS: predniSONE 20 MG Tablet 40 MG PO (21:15)
[2022-11-25 22:27] LABS: Reflex Troponin-HS? (from REC) Y
== END 2022-11-25 21:18 | disposition home or self-care (01) ==
PROVIDERS: Emergency Provider Emergency Medicine; PCP Family Medicine; Visit Provider Emergency Medicine
DX: O99.891 Other specified diseases and conditions complicating pregnancy (principal); M94.0 Chondrocostal junction syndrome [Tietze]; Z3A.01 Less than 8 weeks gestation of pregnancy
CPT/HCPCS: 71045; 80048; 84484; 85025; 93005; 99284

== ENCOUNTER 2022-12-01 11:57 | Emergency (ER) | payer MEDICAID, SELFPAY ==
[2022-12-01 11:59] VITALS: BP 117/69; PULSE 118; RESP 17; TEMP 36.2; O2SAT 100; BMI 41.4
--- NOTE | 2022-12-01 12:09 | EX.ED.DYSGE1 ---
HPI <KARINA Ruiz - Last Filed: 12/01/22 15:00> History of Present Illness Chief Complaint: Shortness of Breath Narrative Narrative: 27-year-old female is approximately 8 weeks presents with lightheadedness and shortness of breath with activity. The symptoms started a week ago along with pain on the right side of her sternum. She was evaluated in our ED and prescribed steroids for costochondritis. After taking the steroids for 3 days the chest pain resolved but she still feeling short of breath with walking and lightheaded all the time. Denies syncope. Denies fever, chills, nausea, vomiting, or bladder or bowel changes. She has no abdominal pain or bleeding. She is scheduled to see OBGYN Dr. Rupert Power in 1 month. The only medication she takes is a vitamin. PFSH <KARINA Ruiz - Last Filed: 12/01/22 15:00> PFSH Medical History Anxiety Asthma PCOS (polycystic ovarian syndrome) Physical exam, pre-employment Home Medications cephalexin 500 mg capsule 500 mg PO Q6 #28 CAPSULES 12/01/22 [Rx Last Taken Unknown] Allergy/AdvReac Type Severity Reaction Status Date / Time No Known Allergies Allergy Verified 12/01/22 12:00 Surgical History H/O dilation and curettage (~05/18/20) Social History household members: significant other housing: house number of children: 1 current occupational status: employed pets and animals: No Smoking Status: Never smoker second hand exposure: No alcohol intake: never substance use type: does not use caffeine: Yes what type of physical activity do you participate in: none seatbelt use: always do you feel safe at home: Yes 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: 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 CVS: Negative for palpitations, chest pain, syncope. Respiratory: Positive for shortness of breath on exertion. Negative for cough, orthopnea. GI: Negative for abdominal pain, nausea, vomiting, diarrhea, constipation, melena, hematochezia. : Negative for dysuria, hematuria or frequency. Neuro: Negative for headache, motor/sensory dysfunction. EXAM <KARINA Ruiz - Last Filed: 12/01/22 15:00> Physical Exam Narrative Exam Narrative: CONST: Patient sitting in no acute distress. EYES: Normal inspection. ENT: Normal inspection, moist mucous membranes. NECK: Normal inspection. RESP: No respiratory distress, CTAB. CVS: Regular rate and rhythm, no murmur, no gallop. ABD: Soft and nontender, no guarding or rebound, nondistended. SKIN: Color normal, no rash, warm, dry, intact. EXTREMITIES: Normal appearance, no pedal edema. NEURO: Oriented x4. PSYCH: Normal affect. Const Vital Signs: 12/01/22 11:59 12/01/22 12:19 12/01/22 12:21 Temperature 97.2 F L Temperature Source Temporal Pulse Rate 118 H Respiratory Rate 17 Respiratory Effort Normal Non-Labored Short of Breath Normal Non-Labored Short of Breath Respiratory Depth Normal Respiratory Pattern Normal Normal Blood Pressure 117/69 Blood Pressure Mean 85 Pulse Ox 100 Oxygen Delivery Method Room Air Room Air 12/01/22 14:05 12/01/22 15:10 Temperature Temperature Source Pulse Rate 109 H 119 H Respiratory Rate 25 H 25 H Respiratory Effort Respiratory Depth Respiratory Pattern Blood Pressure 121/65 H 126/61 H Blood Pressure Mean 83 Pulse Ox 98 97 Oxygen Delivery Method Room Air <Dr. Matti Benson DO - Last Filed: 12/01/22 15:39> Physical Exam Const Vital Signs: 12/01/22 11:59 12/01/22 12:19 12/01/22 12:21 Temperature 97.2 F L Temperature Source Temporal Pulse Rate 118 H Respiratory Rate 17 Respiratory Effort Normal Non-Labored Short of Breath Normal Non-Labored Short of Breath Respiratory Depth Normal Respiratory Pattern Normal Normal Blood Pressure 117/69 Blood Pressure Mean 85 Pulse Ox 100 Oxygen Delivery Method Room Air Room Air 12/01/22 14:05 12/01/22 15:10 Temperature Temperature Source Pulse Rate 109 H 119 H Respiratory Rate 25 H 25 H Respiratory Effort Respiratory Depth Respiratory Pattern Blood Pressure 121/65 H 126/61 H Blood Pressure Mean 83 Pulse Ox 98 97 Oxygen Delivery Method Room Air [facility] <KARINA Ruiz - Last Filed: 12/01/22 15:00> [facility] Narrative Medical decision making narrative: Patient is 8 weeks was evaluated for exertional shortness of breath and lightheadedness. She appears well and nontoxic. Heart rate is 118 with otherwise normal vital signs. Other than tachycardia her exam is benign. Lungs clear. No lower extremity edema. EKG is sinus rhythm with no ectopy or ischemic changes and troponin is negative. CBC shows leukocytosis of 17.8 with normal procalcitonin and lactate. D-dimer negative and CXR shows no acute process. UA shows possible UTI and with a leukocytosis I will treat with Keflex. Her heart rate has improved and the entire time she is maintained 98 to 100% sats on room air so I feel she can follow-up with her AUTHOR'S AGENT regarding shortness of breath. It may just be secondary to and diaphragmatic pressure. She was agreeable with this plan and discharged in stable condition. Lab Data Attestation: I reviewed the patient's lab results. Labs: Laboratory Results - last 24 hr 12/01/22 12/01/22 12/01/22 12:12 12:12 12:12 WBC 17.8 H RBC 4.75 Hgb 13.1 Hct 39.6 MCV 83.4 MCH 27.6 MCHC 33.1 RDW Std Deviation 39.6 RDW Coeff of Zandra 13.2 Plt Count 280 MPV 9.1 Immature Gran % (Auto) 0.800 Neut % (Auto) 85.0 H Lymph % (Auto) 8.2 L [place] % (Auto) 5.3 Eos % (Auto) 0.4 Baso % (Auto) 0.3 Absolute Neuts (auto) 15.1 H Absolute Lymphs (auto) 1.47 Nucleated RBC % 0 D-Dimer Quant (PE/DVT) Cancelled Sodium 134 L Potassium 4.0 Chloride 102 Carbon Dioxide 25.0 Anion Gap 7 BUN 9 Creatinine 0.71 Estim Creat Clear Calc 116.77 Est GFR (MDRD) Af Amer 128 Est GFR (MDRD) Non-Af 106 BUN/Creatinine Ratio 12.7 Glucose 106 Lactic Acid Calcium 9.0 Troponin I High Sens < 3 L Procalcitonin Urine Color Urine Clarity Urine pH Ur Specific [place] Urine Protein Urine Glucose (UA) Urine Ketones Urine Occult Blood Urine Nitrite Urine Bilirubin Urine Urobilinogen Ur Leukocyte Esterase Urine RBC Urine WBC Ur Squamous Epith Cells Urine Bacteria Urine Mucus 12/01/22 12/01/22 12/01/22 12:12 12:35 12:49 WBC RBC Hgb Hct MCV MCH MCHC RDW Std Deviation RDW Coeff of Zandra Plt Count MPV Immature Gran % (Auto) Neut % (Auto) Lymph % (Auto) [place] % (Auto) Eos % (Auto) Baso % (Auto) Absolute Neuts (auto) Absolute Lymphs (auto) Nucleated RBC % D-Dimer Quant (PE/DVT) Sodium Potassium Chloride Carbon Dioxide Anion Gap BUN Creatinine Estim Creat Clear Calc Est GFR (MDRD) Af Amer Est GFR (MDRD) Non-Af BUN/Creatinine Ratio Glucose Lactic Acid 0.6 Calcium Troponin I High Sens Procalcitonin 0.05 Urine Color Yellow Urine Clarity Sl. Cloudy Urine pH 6.5 Ur Specific [place] 1.010 Urine Protein Negative Urine Glucose (UA) Normal Urine Ketones Negative Urine Occult Blood 10 H Urine Nitrite Negative Urine Bilirubin Negative Urine Urobilinogen Normal Ur Leukocyte Esterase 500 H Urine RBC 0-5 SEEN Urine WBC 50-100 SEEN Ur Squamous Epith Cells 5-10 SEEN Urine Bacteria 2+ Urine Mucus 0 SEEN 12/01/22 13:13 WBC RBC Hgb Hct MCV MCH MCHC RDW Std Deviation RDW Coeff of Zandra Plt Count MPV Immature Gran % (Auto) Neut % (Auto) Lymph % (Auto) [place] % (Auto) Eos % (Auto) Baso % (Auto) Absolute Neuts (auto) Absolute Lymphs (auto) Nucleated RBC % D-Dimer Quant (PE/DVT) 0.31 Sodium Potassium Chloride Carbon Dioxide Anion Gap BUN Creatinine Estim Creat Clear Calc Est GFR (MDRD) Af Amer Est GFR (MDRD) Non-Af BUN/Creatinine Ratio Glucose Lactic Acid Calcium Troponin I High Sens Procalcitonin Urine Color Urine Clarity Urine pH Ur Specific [place] Urine Protein Urine Glucose (UA) Urine Ketones Urine Occult Blood Urine Nitrite Urine Bilirubin Urine Urobilinogen Ur Leukocyte Esterase Urine RBC Urine WBC Ur Squamous Epith Cells Urine Bacteria Urine Mucus Radiography Diagnostic Testing: Clinical Impression(s) from Imaging Studies Chest X-Ray 12/01/22 13:35 IMPRESSION: No radiographic evidence of acute cardiopulmonary disease. Electronically Signed: Sandoval Vann MD at 14:19 EDT Reading Location ID and State: [facility] / [place] , Service support , ED attending interpretation of 2 view chest x-ray shows normal heart size, no acute infiltrate, edema, or effusion. EKG Initial EKG: Attestation: I personally reviewed and interpreted this EKG as follows: Comments: Sinus tachycardia at 114 bpm, no ectopy or ischemic changes <Dr. Matti Benson, DO - Last Filed: 12/01/22 15:39> MDM MDM Narrative Medical decision making narrative: Patient is 8 weeks was evaluated for exertional shortness of breath and lightheadedness. She appears well and nontoxic. Heart rate is 118 with otherwise normal vital signs. Other than tachycardia her exam is benign. Lungs clear. No lower extremity edema. EKG is sinus rhythm with no ectopy or ischemic changes and troponin is negative. CBC shows leukocytosis of 17.8 with normal procalcitonin and lactate. D-dimer negative and CXR shows no acute process. UA shows possible UTI and with a leukocytosis I will treat with Keflex. Her heart rate has improved and the entire time she is maintained 98 to 100% sats on room air so I feel she can follow-up with her AUTHOR'S AGENT regarding shortness of breath. It may just be secondary to and diaphragmatic pressure. She was agreeable with this plan and discharged in stable condition. This patient was seen with a PA/RECORDS MANAGEMENT ASSISTANT Individually assessed they patient including history and physical. I have reviewed everything on the chart that is available and agree with the documentation provided by the PA/RECORDS MANAGEMENT ASSISTANT including discussion about the assessment, treatment plan, discussion, and return precautions. patient with dyspnea but a normal work-up including negative D-dimer and chest x-ray. Lab work indicates leukocytosis. Urine suspicious for infection. This will be treated. Cardiac work-up negative. Septic work-up negative as well. Lab Data Labs: Laboratory Results - last 24 hr 12/01/22 12/01/22 12/01/22 12:12 12:12 12:12 WBC 17.8 H RBC 4.75 Hgb 13.1 Hct 39.6 MCV 83.4 MCH 27.6 MCHC 33.1 RDW Std Deviation 39.6 RDW Coeff of Zandra 13.2 Plt Count 280 MPV 9.1 Immature Gran % (Auto) 0.800 Neut % (Auto) 85.0 H Lymph % (Auto) 8.2 L [place] % (Auto) 5.3 Eos % (Auto) 0.4 Baso % (Auto) 0.3 Absolute Neuts (auto) 15.1 H Absolute Lymphs (auto) 1.47 Nucleated RBC % 0 D-Dimer Quant (PE/DVT) Cancelled Sodium 134 L Potassium 4.0 Chloride 102 Carbon Dioxide 25.0 Anion Gap 7 BUN 9 Creatinine 0.71 Estim Creat Clear Calc 116.77 Est GFR (MDRD) Af Amer 128 Est GFR (MDRD) Non-Af 106 BUN/Creatinine Ratio 12.7 Glucose 106 Lactic Acid Calcium 9.0 Troponin I High Sens < 3 L Procalcitonin Urine Color Urine Clarity Urine pH Ur Specific [place] Urine Protein Urine Glucose (UA) Urine Ketones Urine Occult Blood Urine Nitrite Urine Bilirubin Urine Urobilinogen Ur Leukocyte Esterase Urine RBC Urine WBC Ur Squamous Epith Cells Urine Bacteria Urine Mucus 12/01/22 12/01/22 12/01/22 12:12 12:35 12:49 WBC RBC Hgb Hct MCV MCH MCHC RDW Std Deviation RDW Coeff of Zandra Plt Count MPV Immature Gran % (Auto) Neut % (Auto) Lymph % (Auto) [place] % (Auto) Eos % (Auto) Baso % (Auto) Absolute Neuts (auto) Absolute Lymphs (auto) Nucleated RBC % D-Dimer Quant (PE/DVT) Sodium Potassium Chloride Carbon Dioxide Anion Gap BUN Creatinine Estim Creat Clear Calc Est GFR (MDRD) Af Amer Est GFR (MDRD) Non-Af BUN/Creatinine Ratio Glucose Lactic Acid 0.6 Calcium Troponin I High Sens Procalcitonin 0.05 Urine Color Yellow Urine Clarity Sl. Cloudy Urine pH 6.5 Ur Specific [place] 1.010 Urine Protein Negative Urine Glucose (UA) Normal Urine Ketones Negative Urine Occult Blood 10 H Urine Nitrite Negative Urine Bilirubin Negative Urine Urobilinogen Normal Ur Leukocyte Esterase 500 H Urine RBC 0-5 SEEN Urine WBC 50-100 SEEN Ur Squamous Epith Cells 5-10 SEEN Urine Bacteria 2+ Urine Mucus 0 SEEN 12/01/22 13:13 WBC RBC Hgb Hct MCV MCH MCHC RDW Std Deviation RDW Coeff of Zandra Plt Count MPV Immature Gran % (Auto) Neut % (Auto) Lymph % (Auto) [place] % (Auto) Eos % (Auto) Baso % (Auto) Absolute Neuts (auto) Absolute Lymphs (auto) Nucleated RBC % D-Dimer Quant (PE/DVT) 0.31 Sodium Potassium Chloride Carbon Dioxide Anion Gap BUN Creatinine Estim Creat Clear Calc Est GFR (MDRD) Af Amer Est GFR (MDRD) Non-Af BUN/Creatinine Ratio Glucose Lactic Acid Calcium Troponin I High Sens Procalcitonin Urine Color Urine Clarity Urine pH Ur Specific [place] Urine Protein Urine Glucose (UA) Urine Ketones Urine Occult Blood Urine Nitrite Urine Bilirubin Urine Urobilinogen Ur Leukocyte Esterase Urine RBC Urine WBC Ur Squamous Epith Cells Urine Bacteria Urine Mucus Radiography Diagnostic Testing: Clinical Impression(s) from Imaging Studies Chest X-Ray 12/01/22 13:35 IMPRESSION: No radiographic evidence of acute cardiopulmonary disease. Electronically Signed: Sandoval Vann MD at 14:19 EDT Reading Location ID and State: [facility] / [place] , Service support , Discharge Plan Triage Chief Complaint: Shortness of Breath ED Midlevel Provider: Jayla Banks ED Provider: Matti Benson Dx/Rx/DC Orders Clinical Impression: Exertional shortness of breath, UTI (urinary tract infection) Instructions: Urinary Tract Infections in Women Prescriptions: New cephalexin 500 mg capsule 500 mg PO Q6 Qty: 28 0RF Primary Care Provider: Yusuf Gan Referrals: Yusuf Gan DO [Primary Care Provider] - Activity Restrictions/Additional Instructions: Today your testing was normal other than a urinary tract infection so I prescribed antibiotics for this. Please follow-up with your AUTHOR'S AGENT regarding your shortness of breath. Disposition Disposition: Home, Self Care Discharge Date/Time: 12/01/22 15:11
--- NOTE | 2022-12-01 12:12 | EKG12_ITS ---
Test Reason : SOB Blood Pressure : / mmHG Vent. Rate : 114 BPM Atrial Rate : 114 BPM P-R Int : 150 ms QRS Dur : 078 ms QT Int : 314 ms P-R-T Axes : 037 028 027 degrees QTc Int : 432 ms Sinus tachycardia Otherwise normal ECG Confirmed by SHYANN GRANT, AL ([id number]), graphic editor SRINIVASAN ODELL ([id number]) on 12/03/2022 9:10:10 AM Referred By: Confirmed By:AL BOOTHE MD
[2022-12-01 12:21] VITALS: O2SAT 98
[2022-12-01 12:22] LABS: Absolute Lymphocyte Count 1.47 X10^3/uL (0.83-4.51); Absolute Neutrophil Count 15.1 X10^3/uL (2.0-7.7); Basophil# 0.05 X10^3/uL; Basophil% 0.3 % (0-1); Eosinophil# 0.08 X10^3/uL; Eosinophils% 0.4 % (0-5); Hematocrit 39.6 % (37-47); Hemoglobin 13.1 g/dL (12.0-15.0); Lymphocyte # 1.47 X10^3/ul (0.83-4.51); Lymphocyte % 8.2 % (19-41); Mean Corp Hgb Conc 33.1 g/dL (32-36); Mean Corpuscular Hgb 27.6 pg (27.0-32.0); Mean Corpuscular Volume 83.4 fL (81-99); Mean Platelet Vol. 9.1 fl (6.2-12.0); Monocyte# 0.95 X10^3/uL; Monocyte% 5.3 % (0-10); NRBC Flagged by Analyzer 0 % (0-5); Neutrophil # 15.14 X10^3/uL (2.7-7.7); Platelet Count 280 K/mm3 (150-450); RBC Distribution Width CV 13.2 % (11.6-14.6); RBC Distribution Width SD 39.6 fl (35.1-43.9); Red Blood Count 4.75 M/mm3 (4.2-5.4); White Blood Count 17.8 K/mm3 (4.4-11.0)
[2022-12-01 12:37] LABS: Anion Gap 7 (5-15); BUN 9 mg/dL (7-18); BUN/Creat Ratio 12.7 RATIO (10-20); Chloride 102 mmol/L (98-107); Creatinine, Serum 0.71 mg/dL (0.55-1.02); EST Glomerular Filtration Rate 106 mL/min (>60); Est Glom Filt Rate - Afr Amer 128 mL/min (>60); Estimated Creatinine Clearance 116.77 ml/min; Glucose 106 mg/dL (74-106); Sodium Level 134 mmol/L (136-145); Troponin-I HS < 3 pg/mL (3.0-54.0)
[2022-12-01 12:58] LABS: Mucous, Urine 0 SEEN /hpf (<or=2+)
[2022-12-01 13:01] LABS: Procalcitonin 0.05 ng/mL (0.00-0.09)
[2022-12-01 13:07] LABS: Color, Urine Yellow (Yellow); Glucose, Dipstick Normal (Normal); Ketone-Dipstick Negative (Negative); Leukocyte Esterase-Dipstick 500 /ul (Negative); Nitrite-Dipstick Negative (Negative); Occult Blood-Urine 10 /ul (Negative); Protein-Dipstick Negative (Negative); Urine Bilirubin Dipstick Negative (Negative); Urine Clarity Sl. Cloudy (Clear); Urine Urobilinogen Normal (Normal); Urine pH 6.5 (5.0 - 8.0)
[2022-12-01 13:10] LABS: Lactic Acid 0.6 mmol/L (0.4-1.9)
[2022-12-01 13:29] LABS: D-Dimer Quantitative (DVT/PE) 0.31 FEU/ug/m (0.27-0.49)
[2022-12-01 13:33] LABS: Bacteria 2+ /hpf (None Seen); Red Blood Cells-Urine 0-5 SEEN /hpf (0-5); Squamous Epithelial Cells - UA 5-10 SEEN /hpf (5-10); White Blood Cells 50-100 SEEN /hpf (0-5)
--- NOTE | 2022-12-01 13:35 | RAD_ITS ---
EXAM: XR CHEST, 2 VIEWS CLINICAL INDICATION: dyspnea TECHNIQUE: Frontal and lateral views of the chest. COMPARISON: 11.25.22 FINDINGS: LUNGS AND PLEURAL SPACES: Unremarkable. No consolidation or edema. No pneumothorax. No effusion. HEART: Unremarkable. Cardiac silhouette not enlarged. MEDIASTINUM: Central airways and mediastinal contour are unremarkable. BONES/JOINTS: Unremarkable. SOFT TISSUES: Unremarkable. RAD/Chest PA and Lateral IMPRESSION: No radiographic evidence of acute cardiopulmonary disease. Electronically Signed: Sandoval Vann MD at 14:19 EDT ,
[2022-12-01 14:05] VITALS: BP 121/65; PULSE 109; RESP 25; O2SAT 98
[2022-12-01] MEDS: Cephalexin 250 MG Capsule 500 MG PO (15:03)
[2022-12-01 15:10] VITALS: BP 126/61; PULSE 119; RESP 25; O2SAT 97
== END 2022-12-01 15:11 | disposition home or self-care (01) ==
PROVIDERS: Physician Assistant; Emergency Provider Student in an Organized Health Care Education/Training Program; PCP Family Medicine; Visit Provider Student in an Organized Health Care Education/Training Program
DX: O99.511 Diseases of the respiratory system complicating pregnancy, first trimester (principal); R06.02 Shortness of breath; O23.41 Unspecified infection of urinary tract in pregnancy, first trimester; Z3A.08 8 weeks gestation of pregnancy; R42 Dizziness and giddiness; J45.909 Unspecified asthma, uncomplicated
CPT/HCPCS: 36415; 71046; 80048; 81001; 83605; 84145; 84484; 85025; 85379; 87040; 87086; 87088; 93005; 99283; A4216

== ENCOUNTER → 2022-12-23 | Outpatient (CLI) | payer MEDICAID, SELFPAY ==
[2022-12-26 05:07] LABS: Chlamydia By Nucleic Acid AMP Negative (Negative); Gonococcus By Nucleic Acid AMP Negative (Negative)
== END | disposition home or self-care (01) ==
LOC: LABSPEC 13:58
PROVIDERS: PCP Family Medicine; Referring Provider Registered Nurse; Visit Provider Registered Nurse
DX: O09.91 Supervision of high risk pregnancy, unspecified, first trimester (principal); Z3A.00 Weeks of gestation of pregnancy not specified
CPT/HCPCS: 87491; 87591

== ENCOUNTER → 2022-12-25 | Outpatient (CLI) | payer MEDICAID, SELFPAY ==
--- NOTE | 2022-12-25 12:13 | US_ITS ---
INDICATION: dating- unsure of lmp EXAMINATION: Ultrasound US OB Less Than 14 Weeks TECHNIQUE: Transvaginal (for optimal evaluation of the adnexa) pelvic ultrasound was performed. Grayscale, spectral waveform, and color flow Doppler evaluation of the adnexa. COMPARISON: No relevant prior comparison study available FINDINGS: UTERUS: 11.4 x 8.1 x 7.3 cm. RIGHT OVARY: 3.3 x 2.7 x 3.2 cm. Normal. LEFT OVARY: 3.8 x 2.9 x 3.1 cm. Normal. FREE FLUID: None. INTRAUTERINE GESTATIONAL SAC: Single. YOLK SAC: Identified POLE: Identified CRL 2.59 cm. ESTIMATED GESTATION AGE: 9 weeks and 1 day. ESTIMATED DUE DATE: July 29, 2023 HEART MOTION: 164 bpm. PLACENTA: Not visualized due to age. SUBCHORIONIC HEMORRHAGE: None. AMNIOTIC FLUID: Qualitatively normal. US/Init OB < 14Wks US IMPRESSION: Single live intrauterine . Estimated gestational age is 9 weeks and 1 day. Electronically Signed: Lillian Coelho MD at 13:15 EDT ,
== END | disposition home or self-care (01) ==
LOC: OPUS 12:13
PROVIDERS: PCP Family Medicine; Referring Provider Registered Nurse; Visit Provider Registered Nurse
DX: Z34.90 Encounter for supervision of normal pregnancy, unspecified, unspecified trimester (principal); Z36.87 Encounter for antenatal screening for uncertain dates
CPT/HCPCS: 76801

== ENCOUNTER → 2023-01-10 | Outpatient (CLI) | payer MEDICAID, SELFPAY ==
[2023-01-10 11:19] LABS: Absolute Lymphocyte Count 1.96 X10^3/uL (0.83-4.51); Absolute Neutrophil Count 5.4 X10^3/uL (2.0-7.7); Basophil# 0.01 X10^3/uL; Basophil% 0.1 % (0-1); Eosinophil# 0.08 X10^3/uL; Hematocrit 34.7 % (37-47); Lymphocyte # 1.96 X10^3/ul (0.83-4.51); Mean Corp Hgb Conc 34.6 g/dL (32-36); Mean Corpuscular Hgb 28.1 pg (27.0-32.0); Mean Corpuscular Volume 81.3 fL (81-99); Mean Platelet Vol. 9.1 fl (6.2-12.0); Monocyte# 0.35 X10^3/uL; Monocyte% 4.5 % (0-10); NRBC Flagged by Analyzer 0 % (0-5); Neutrophil # 5.41 X10^3/uL (2.7-7.7); Platelet Count 255 K/mm3 (150-450); RBC Distribution Width CV 13.3 % (11.6-14.6); Red Blood Count 4.27 M/mm3 (4.2-5.4); White Blood Count 7.8 K/mm3 (4.4-11.0)
[2023-01-10 11:49] LABS: Glucose Challenge Gest 1H 50g 115 mg/dL (70-140)
[2023-01-10 12:10] LABS: NATERA MAILED SPECIMEN
[2023-01-10 12:51] LABS: HIV - WCH Non-Reactive (Nonreactive); Hepatitis B Surface Antigen Non-Reactive (Nonreactive); Hepatitis C Antibody Non-Reactive (Nonreactive); Rubella IgG Equiv (Nonreactive); Syphilis Antibodies Non-reactive
== END | disposition home or self-care (01) ==
PROVIDERS: PCP Family Medicine; Referring Provider Registered Nurse; Visit Provider Registered Nurse
DX: O09.91 Supervision of high risk pregnancy, unspecified, first trimester (principal); Z3A.00 Weeks of gestation of pregnancy not specified; O99.210 Obesity complicating pregnancy, unspecified trimester
CPT/HCPCS: 36415; 82950; 85025; 86703; 86762; 86780; 86803; 86850; 86900; 86901; 87340

== ENCOUNTER 2023-02-25 18:24 | Emergency (ER) | payer MEDICAID, SELFPAY ==
[2023-02-25 18:27] VITALS: BP 126/75; PULSE 86; RESP 18; TEMP 36.2; O2SAT 100; BMI 39.7
[2023-02-25 19:05] VITALS: O2SAT 98
[2023-02-25 19:10] VITALS: BP 135/79; RESP 22; O2SAT 98
--- NOTE | 2023-02-25 19:11 | ED.VIS.DYS ---
HPI History of Present Illness Chief Complaint: Shortness of Breath Narrative Narrative: 27-year-old female at approximately 18 weeks gestation, past medical history of asthma, complains of increasing shortness of breath over the last few weeks. She has been using her albuterol inhaler without relief. She denies any fevers but states she feels chilled at times. Occasional cough with sputum production. She denies any problems with the , but states that she is feeling increasingly more short of breath, worse today. PFSH PFS Medical History Anxiety Asthma Encounter for IUD removal PCOS (polycystic ovarian syndrome) Home Medications albuterol sulfate 90 mcg/actuation aerosol inhaler 1 puff inhalation ONCE #8.5 grams 02/20/23 [Rx Last Taken Unknown] vitamins no.163-iron bis-gly 20 mg-folate no.10 1 mg tablet (PNV Tabs 20-1) tab PO 02/20/23 [History Last Taken Unknown] magnesium 250 mg tablet 250 mg PO DAILY 02/25/23 [History Last Taken Unknown] prednisone 20 mg tablet 40 mg (2 x 20 mg) PO DAILY #14 tabs 02/25/23 [Rx Last Taken Unknown] Allergy/AdvReac Type Severity Reaction Status Date / Time No Known Allergies Allergy Verified 02/25/23 18:27 Social History household members: spouse and children housing: house number of children: 2 pets and animals: No Smoking Status: Never smoker second hand exposure: No alcohol intake: never substance use type: does not use caffeine: Yes what type of physical activity do you participate in: none seatbelt use: always do you feel safe at home: Yes 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 HEENT: No sore throat. No neck pain. No loss of vision. No rhinorrhea. Cardiovascular: No chest pain. No palpitations. No pedal edema. Respiratory: Positive cough, positive shortness of breath, worsening over the last few weeks, bad today. Abdominal: No abdominal pain. No nausea. No vomiting. Genitourinary: No dysuria. No hematuria. No vaginal bleeding. Musculoskeletal: No myalgias. No arthralgias. Neurologic: No headaches. No dizziness. No lightheadedness. Skin: No rash. No change in color. Psychiatric: No depression. No anxiety. EXAM Physical Exam Narrative Exam Narrative: Afebrile. Vital signs noted. HEENT: Normocephalic. Atraumatic. PERRL, EOMI. Neck soft and supple. No point tenderness or step off. Cardiovascular: Regular rate and rhythm. No murmurs, rubs, or gallops appreciated. Respiratory: No tachypnea. Lungs clear to auscultation bilaterally. Moving a good amount of air. Gastrointestinal: Abdomen soft, nontender, with normoactive bowel sounds. No rebound or guarding. Neurological: Awake. Alert. Nonfocal, nonlateralizing. Skin: No rash. Normal color. No pallor. Musculoskeletal: No pedal edema. Full range of motion extremities. Const Vital Signs: 02/25/23 18:27 02/25/23 19:05 02/25/23 19:08 Temperature 97.2 F L Temperature Source Temporal Pulse Rate 86 Respiratory Rate 18 Respiratory Effort Short of Breath Respiratory Depth Normal Respiratory Pattern Tachypnea Normal Blood Pressure 126/75 H Blood Pressure Mean 92 Pulse Ox 100 Oxygen Delivery Method Room Air Room Air 02/25/23 19:10 02/25/23 19:14 Temperature Temperature Source Pulse Rate 89 Respiratory Rate 22 H 16 Respiratory Effort Respiratory Depth Respiratory Pattern Blood Pressure 135/79 H Blood Pressure Mean 97 Pulse Ox 98 Oxygen Delivery Method Room Air MDM MDM MDM Narrative Medical decision making narrative: Concern is for asthma exacerbation, I have low concern for pulmonary embolism as she is not tachycardic and her pulse ox is 100% on room air. I do not feel laboratory work is indicated. Additionally, I do not really feel that a chest x-ray is indicated as she has a normal pulse ox and is afebrile here. I discussed radiation risk to the patient and her fetus. Hence, radiological imaging was deferred. I do feel she would benefit from an albuterol aerosolized treatment and prednisone 40 mg here in the emergency department with a prescription written for a burst for the next week. Examination at approximately 1950 shows her to be moving a good amount of air and she feels improved. She states that her inhaler is new. She will continue to use this every 4-6 hours as needed for shortness of breath. I do feel she would benefit from a steroid burst as stated above. I do not feel she requires observation or admission at this time. Return instructions to the emergency department were reviewed. Disposition is discharged home in stable condition. History & Record Review Discussion w/independent historian: Patient Additional record(s) reviewed:: Prior ED visit Discharge Plan Triage Chief Complaint: Shortness of Breath ED Provider: Anurag Oneil Dx/Rx/DC Orders Clinical Impression: Asthma exacerbation, Instructions: Asthma and , ED Asthma, Acute (Adult) Prescriptions: New prednisone 20 mg tablet 40 mg PO DAILY Qty: 14 0RF No Action PNV Tabs 20-1 20 mg iron- 1 mg tablet PO albuterol sulfate 90 mcg/actuation HFA aerosol inhaler 1 puff inhalation ONCE Qty: 8.5 0RF magnesium 250 mg tablet 250 mg PO DAILY Primary Care Provider: Yusuf Gan Referrals: Yusuf Gan, [Primary Care Provider] - 3-5 Days if not improving Disposition Disposition: Home, Self Care
[2023-02-25] MEDS: Albuterol 2.5 MG/3 ML VIAL.NEB. INHALATION (19:13)
[2023-02-25 19:14] VITALS: PULSE 89; RESP 16
[2023-02-25] MEDS: predniSONE 20 MG Tablet 40 MG PO (19:16)
== END 2023-02-25 20:01 | disposition home or self-care (01) ==
PROVIDERS: Emergency Provider Emergency Medicine; PCP Family Medicine; Visit Provider Emergency Medicine
DX: O99.512 Diseases of the respiratory system complicating pregnancy, second trimester (principal); J45.901 Unspecified asthma with (acute) exacerbation; Z3A.18 18 weeks gestation of pregnancy
CPT/HCPCS: 94640; 99285

== ENCOUNTER 2023-04-11 18:23 | Outpatient (CLI) | payer MEDICAID, SELFPAY ==
[2023-04-11 18:33] VITALS: BMI 39.5
[2023-04-11 18:43] VITALS: BP 129/70; PULSE 85; TEMP 37.1; O2SAT 99
--- NOTE | 2023-04-11 19:11 | US_ITS ---
STUDY: RENAL ULTRASOUND - COMPLETE REASON FOR EXAM: Female, 27 years old. flank pain -- bilateral ultrasound TECHNIQUE: Ultrasound evaluation of the kidneys was performed with real-time and static romo-scale imaging. COMPARISON: None. FINDINGS: RIGHT KIDNEY: Normal location of the right kidney, which is normal in size. The right kidney measures 11.6 cm. There is a normal cortex of the right kidney. The renal cortex measures 1.2 cm. There is no right renal mass or cyst. There are no right renal calculi. There is no right hydronephrosis. DISTAL RIGHT URETER: There is non-visualization of the distal right ureter. There is no demonstrated right ureterovesical junction calculus. There is a visualized right ureteral jet. LEFT KIDNEY: Normal location of the left kidney, which is normal in size. The left kidney measures 13.0 cm. There is a normal cortex of the left kidney. The renal cortex measures 1.3 cm. There is no left renal mass or cyst. There are no left renal calculi. There is no left hydronephrosis. DISTAL LEFT URETER: There is non-visualization of the distal left ureter. There is no demonstrated left ureterovesical junction calculus. There is a visualized left ureteral jet. BLADDER: The distended urinary bladder has a volume of 90 ml. The empty urinary bladder has a volume of ml. There is a normal wall thickness of the distended urinary bladder. There is no demonstrated mass within the urinary bladder. There are no demonstrated bladder calculi. US/Kidney and Bladder IMPRESSION: Normal ultrasound of the kidneys and urinary bladder. Electronically Signed: Vasquez Marroquin MD at 21:05 EDT ,
[2023-04-11 20:03] LABS: Mucous, Urine 0 SEEN /hpf (<or=2+); Red Blood Cells-Urine 0 SEEN /hpf (0-5)
[2023-04-11 20:04] LABS: Color, Urine Yellow (Yellow); Glucose, Dipstick Normal (Normal); Ketone-Dipstick Negative (Negative); Leukocyte Esterase-Dipstick 500 /ul (Negative); Nitrite-Dipstick Negative (Negative); Occult Blood-Urine Negative /ul (Negative); Protein-Dipstick Negative (Negative); Urine Bilirubin Dipstick Negative (Negative); Urine Clarity Cloudy (Clear); Urine Urobilinogen Normal (Normal)
[2023-04-11 20:28] LABS: Bacteria RARE /hpf (None Seen); Squamous Epithelial Cells - UA 5-10 SEEN /hpf (5-10); White Blood Cells 5-10 SEEN /hpf (0-5)
--- NOTE | 2023-04-11 20:32 | OB.TRI.PN ---
Progress Notes Date of Service: 04/11/23 Progress Note: Patient presents for triage evaluation secondary to right sided flank pain and decreased movement FHT: 135 Appropriate for gestational age [place]: no Contractions Assessment and plan: appropriate NST, atb for UTI, reassuring maternal and status patient discharged to home to follow-up at next appt. See problem list details for additional plan information. Laboratory Studies: Laboratory Tests 04/11/23 Range/Units 17:15 Urine Color Yellow (Yellow) Urine Clarity Cloudy (Clear) Urine pH 6.0 (5.0 - 8.0) Ur Specific [place] 1.010 (1.002-1.030) Urine Protein Negative (Negative) mg/dl Urine Glucose (UA) Normal (Normal) mg/dl Urine Ketones Negative (Negative) mg/dl Urine Occult Blood Negative (Negative) /ul Urine Nitrite Negative (Negative) Urine Bilirubin Negative (Negative) mg/dL Urine Urobilinogen Normal (Normal) mg/dl Ur Leukocyte Esterase 500 H (Negative) /ul Urine RBC 0 SEEN (0-5) /hpf Urine WBC 5-10 SEEN (0-5) /hpf Ur Squamous Epith Cells 5-10 SEEN (5-10) /hpf Urine Bacteria RARE (None Seen) /hpf Urine Mucus 0 SEEN (<or=2+) /hpf Charges/Coding Multi Select Codes Urinary/Genital Urinary/Genital CPT Codes: 69179-17 non-stress test Interp Assessment & Plan (1) UTI (urinary tract infection) during : PLAN: keflex renal US for flank pain d/c home
== END 2023-04-11 21:10 | disposition home or self-care (01) ==
LOC: WPOUT 18:31 → WP 18:32
PROVIDERS: PCP Family Medicine; Visit Provider Advanced Practice Midwife
DX: O36.8190 Decreased fetal movements, unspecified trimester, not applicable or unspecified (principal); O23.40 Unspecified infection of urinary tract in pregnancy, unspecified trimester; Z3A.00 Weeks of gestation of pregnancy not specified
CPT/HCPCS: 59025; 59050; 76770; 81001; 87086; 87088; 99221; G0378

== ENCOUNTER → 2023-05-07 | Outpatient (CLI) | payer MEDICAID, SELFPAY ==
[2023-05-07 10:09] LABS: Absolute Lymphocyte Count 1.76 X10^3/uL (0.83-4.51); Absolute Neutrophil Count 5.6 X10^3/uL (2.0-7.7); Basophil# 0.02 X10^3/uL; Basophil% 0.3 % (0-1); Eosinophils% 1.3 % (0-5); Hemoglobin 10.7 g/dL (12.0-15.0); Lymphocyte # 1.76 X10^3/ul (0.83-4.51); Lymphocyte % 22.1 % (19-41); Mean Corp Hgb Conc 31.5 g/dL (32-36); Mean Corpuscular Hgb 25.8 pg (27.0-32.0); Mean Corpuscular Volume 82.1 fL (81-99); Mean Platelet Vol. 9.7 fl (6.2-12.0); Monocyte# 0.42 X10^3/uL; Monocyte% 5.3 % (0-10); NRBC Flagged by Analyzer 0 % (0-5); Neutrophil # 5.61 X10^3/uL (2.7-7.7); Neutrophil % 70.2 % (47-70); Platelet Count 239 K/mm3 (150-450); RBC Distribution Width CV 14.6 % (11.6-14.6); RBC Distribution Width SD 42.6 fl (35.1-43.9); Red Blood Count 4.14 M/mm3 (4.2-5.4)
[2023-05-07 10:25] LABS: Glucose Challenge Gest 1H 50g 131 mg/dL (70-140)
[2023-05-07 11:00] LABS: HIV - WCH Non-Reactive (Nonreactive); Syphilis Antibodies Non-reactive
== END | disposition home or self-care (01) ==
PROVIDERS: PCP Family Medicine; Referring Provider Registered Nurse; Visit Provider Registered Nurse
DX: O09.91 Supervision of high risk pregnancy, unspecified, first trimester (principal); Z3A.00 Weeks of gestation of pregnancy not specified
CPT/HCPCS: 36415; 82950; 85025; 86703; 86780

== ENCOUNTER → 2023-05-20 | Outpatient (CLI) | payer MEDICAID, SELFPAY ==
--- NOTE | 2023-05-20 12:31 | US_ITS ---
STUDY: SECOND AND THIRD TRIMESTER OBSTETRICAL ULTRASOUND - LIMITED REASON FOR EXAM: Female, 27 years old, evaluate growth LMP: 10/06/2022 PRIOR ULTRASOUND: Prior study dated: 12/25/2022 TECHNIQUE: Transabdominal TECHNICAL QUALITY: Adequate. FINDINGS: There is a single intrauterine fetus. The fetus is in a cephalic presentation. There is demonstrated cardiac activity with a heart rate of 140 bpm. There is a normal amniotic fluid volume. The largest amniotic fluid pocket measures 6.7 cm. The amniotic fluid index (YUNIOR) is 15.9 cm. The placenta is fundal in location. There are Grade 1 placental changes. The cervix measures 3.3 cm in length. BIOMETRY: BPD: 8.2 cm: 33 weeks, 1 days HC: 29.8 cm: 33 weeks, 0 days AC: 28.7 cm: 32 weeks, 5 days FL: 6.1 cm: 31 weeks, 4 days Age by LMP: 32 weeks, 3 days. [place]ORET[place] by LMP: 07/14/2023. age by prior US: 9 weeks, 1 days. [place]ET[place] by prior US: 07/29/2023. age by current US: 32 weeks, 3 days. [place] by current US: 07/12/2023. Estimated weight: 1997 grams, +/- 299 grams, 98 percentile. US/OB Limited With Biometrics IMPRESSION: Single live intrauterine fetus in cephalic presentation with an estimated gestational age of 32 weeks and 3 days. The LORETTA is to 07/12/2023 Electronically Signed: Juventino Ojeda MD at 15:49 EST ,
== END | disposition home or self-care (01) ==
LOC: OPUS 12:30
PROVIDERS: PCP Family Medicine; Referring Provider Nurse Practitioner Women's Health; Visit Provider Nurse Practitioner Women's Health
DX: O09.299 Supervision of pregnancy with other poor reproductive or obstetric history, unspecified trimester (principal); Z3A.00 Weeks of gestation of pregnancy not specified
CPT/HCPCS: 76816

== ENCOUNTER 2023-05-23 13:10 | Outpatient (CLI) | payer MEDICAID, SELFPAY ==
[2023-05-23 13:33] VITALS: BP 129/66; PULSE 90
[2023-05-23 13:59] LABS: Color, Urine Yellow (Yellow); Glucose, Dipstick Normal (Normal); Ketone-Dipstick Negative (Negative); Leukocyte Esterase-Dipstick 500 /ul (Negative); Nitrite-Dipstick Negative (Negative); Occult Blood-Urine Negative /ul (Negative); Protein-Dipstick Negative (Negative); Urine Bilirubin Dipstick Negative (Negative); Urine Clarity Sl. Cloudy (Clear); Urine Urobilinogen Normal (Normal)
[2023-05-23 14:03] VITALS: TEMP 36.8
[2023-05-23 14:10] VITALS: BP 131/58; PULSE 91
[2023-05-23 14:23] VITALS: BMI 41.5
[2023-05-23] MEDS: Acetaminophen 500 MG Tablet 1000 MG PO (15:47)
--- NOTE | 2023-05-23 16:48 | OB.TRI.PN_ITS ---
Progress Notes Date of Service: 05/23/23 Progress Note: Patient presents for triage evaluation secondary to left lower pelvic pain readiating into low back FHT: 140 Moderate variability reactive no decelerations category I tracing [place]: no regular Contractions Assessment and plan: UTI on UA, culture sent. tylenol given, reveiwed possible kidney stone precautions recommend keflex Reactive NST, reassuring maternal and status patient discharged to home to follow-up as scheduled. See problem list details for additional plan information. Laboratory Studies: Laboratory Tests 05/23/23 Range/Units 13:49 Urine Color Yellow (Yellow) Urine Clarity Sl. Cloudy (Clear) Urine pH 7.0 (5.0 - 8.0) Ur Specific [place] 1.010 (1.002-1.030) Urine Protein Negative (Negative) mg/dl Urine Glucose (UA) Normal (Normal) mg/dl Urine Ketones Negative (Negative) mg/dl Urine Occult Blood Negative (Negative) /ul Urine Nitrite Negative (Negative) Urine Bilirubin Negative (Negative) mg/dL Urine Urobilinogen Normal (Normal) mg/dl Ur Leukocyte Esterase 500 H (Negative) /ul Charges/Coding Procedures Urinary/Genital [id number]: 23025-14 non-stress test Interp Assessment & Plan (1) UTI (urinary tract infection) during : COMMENT: has had multiple infections, recommend daily keflex for remainder of .
== END 2023-05-23 17:00 | disposition home or self-care (01) ==
LOC: WPOUT 13:12 → WP 13:12
PROVIDERS: PCP Family Medicine; Referring Provider Obstetrics & Gynecology; Visit Provider Obstetrics & Gynecology
DX: O23.40 Unspecified infection of urinary tract in pregnancy, unspecified trimester (principal)
CPT/HCPCS: 59025; 59050; 81002; 87086; 87088; 99221; G0378

== ENCOUNTER → 2023-06-16 | Outpatient (CLI) | payer MEDICAID, SELFPAY ==
--- OUTSIDE RECORDS SUMMARY | 2023-06-16 09:53 | XMS RPT_ITS | CCD ---
Author Name Unknown Address [address] [place] [address] Organization [facility] Care Team Providers Care Puppy Trainer Name Role Phone ULI ALVAREZ MD Primary Care Physician [phone] MEI Attending Unavaila ULI Douglas Primary Care Unavailable Yusuf Gan Primary Care Provider [phone] YUSUF GAN Primary Care Unavailable Yusuf Gan DO Primary Care Provider YUSUF GAN Attending Unavailable YUSUF GAN Primary Care Unavailable RISA PRIMARY CAREMD Primary Care Unavailable YOAN BASILIO Referring UnavailTEZ Delgado Attending Unavailable Medications Current Medications Medication Drug Class(es) Dates Sig (Normalized) Sig (Original) amoxicillin 500 mg oral capsule (1 source) Penicillin-class Antibacterial Start: 10-07-2022 End: 10-17-2022 take 1 capsule by mouth three times daily amoxicillin (Amoxil) 500 MG capsule Take 1 capsule (500 mg) by mouth 3 times daily for 10 days. 30 capsule 0 10/07/2022 10/17/2022 Active escitalopram 20 mg oral tablet (3 sources) Serotonin Reuptake Inhibitor Start: 10-07-2022 End: 11-06-2022 take 1 tablet by mouth once daily escitalopram (Lexapro) 20 MG tablet Take 1 tablet (20 mg) by mouth daily for 30 doses. 30 tablet 5 10/07/2022 11/06/2022 Active Completed/Discontinued Medications Medication Drug Class(es) Dates Sig (Normalized) Sig (Original) [id number] 200 actuat albuterol 0.09 mg/actuat metered dose inhaler (3 sources) beta2-Adrenergic Agonist Start: 05-03-2020 take 2 puff(s) by inhalation every six hours as needed albuterol HFA (PROAIR HFA) 90 mcg/actuation inhaler Inhale 2 Puffs as instructed every 6 hours as needed. 8 g 0 05/03/2020 Active Problems Active Problems Problem Classification Problem Date Documented Da te Episodic/Chronic Asthma (2 sources) Asthma; Translations: [Mild intermittent asthma] Onset: 12-22-2020 08-28-2014 Chronic Mood disorders (4 sources) Recurrent major depressive episodes, mild ; Translations: [Major depressive disorder, recurrent, mild] Onset: 08-17-2021 Chronic Other upper respiratory infections (5 sources) Sore throat symptom; Translations: [Acute pharyngitis, unspecified] Onset: 10-07-2022 Episodic Spondylosis; intervertebral disc disorders; other back problems (1 source) Backache; Translations: [Dorsalgia, unspecified] Onset: 04-02-2022 Episodic Past or Other Problems Problem Classification Problem Date Documented Date Episodic/Chronic Contraceptive and procreative management (1 source) Oral contraception; Translations: [Encounter for surveillance of contraceptive pills] Onset: 12-22-2020 03-21-2022 Episodic Results Test Name Value Interpretation Reference Range Facil ity Vital Signs Date Time Vital Sign Value Performing Clinician Facility 10-07-2022 16:06-0400 Body height 170.2 cm Yusuf Gan [facility] Work Phone: [email or web address] 10-07-2022 16:06-0400 Body mass index (BMI) [Ratio] 40.1 kg/m2 Yusuf Bettencourtezequielyunier [employer] Work Phone: [email or web address] 10-07-2022 16:06-0400 Body temperature 97.11 [degF] Yusuf Bettencourtezequielyunier [employer] Work Phone: [email or web address] 10-07-2022 16:06-0400 Body weight 116.12 kg Yusuf Bettencourtremberto [employer] Work Phone: [email or web address] 10-07-2022 16:06-0400 Diastolic blood pressure 69 mm[Hg] Yusuf Bettencourtremberto [employer] Work Phone: [email or web address] 10-07-2022 16:06-0400 Heart rate 72 /min Yusuf Gan DO Work Phone: [facility] 10-07-2022 16:06-0400 SaO2% (BldA) [Mass fraction] 99 % Yusuf Gan DO Work Phone: [facility] 10-07-2022 16:06-0400 Systolic blood pressure 108 mm[Hg] Yusuf Gan DO Work Phone: [facility] 08-16-2022 07:41-0500 Body temperature 98.1 [degF] Krislyn Aberegg PA Work Phone: [facility] 08-16-2022 07:41-0500 Body weight 112.58 kg Krislyn Aberegg PA Work Phone: [facility] 08-16-2022 07:41-0500 Diastolic blood pressure 76 mm[Hg] Krislyn Aberegg PA Work Phone: [facility] 08-16-2022 07:41-0500 Heart rate 111 /min Krislyn Aberegg PA Work Phone: [facility] 08-16-2022 07:41-0500 Respiratory rate 18 /min Krislyn Aberegg PA Work Phone: [facility] 08-16-2022 07:41-0500 SaO2% (BldA) [Mass fraction] 99 % Krislyn Aberegg PA Work Phone: [facility] 08-16-2022 07:41-0500 Systolic blood pressure 132 mm[Hg] Krislyn Aberegg PA Work Phone: [facility] 04-02-2022 21:02-0400 Body height 170.[address] HAMIDA GASTON MD [facility] 04-02-2022 21:02-0400 Body temperature 98.78 [degF] DR HAMIDA GASTON MD [facility] 04-02-2022 21:02-0400 Body weight 113.[address] HAMIDA GASTON MD [facility] 04-02-2022 21:02-0400 Diastolic blood pressure 84 mm[Hg] DR HAMIDA GASTON MD [facility] 04-02-2022 21:02-0400 Heart rate 82 /min DR HAMIDA GASTON MD [facility] 04-02-2022 21:02-0400 Respiratory rate 18 /min DR HAMIDA GASTON MD [facility] 04-02-2022 21:02-0400 Systolic blood pressure 131 mm[Hg] DR HAMIDA GASTON MD [facility] Encounters Encounter Date Encounter Type Care Provider Facility Start: 03-10-2023 End: 03-10-2023 ambulatory PRIMARY CARE [facility] Start: 10-07-2022 End: 10-07-2022 ambulatory YUSUF GAN [facility] Start: 10-07-2022 End: 10-07-2022 Office outpatient visit 15 minutes Yusuf Gan DO Work Phone: [facility] Medical [facility] Family Medicine Procedures Date Procedure Procedure Detail Performing Clinician Start: 08-16-2022 STREP A MOLECULAR (POC) Estevan Medina PA Work Phone: None (qualifier value) DR ROSALIO GASTON MD Plan of Treatment Date Care Activity Detail Author Start: 2046 Zoster Vaccines (1 of 2) Zoste r Vaccines (1 of 2) [facility] Start: 06-17-2032 DTaP/Tdap/Td Vaccine s (9 - Td or Tdap) DTaP/Tdap/Td Vaccines (9 - Td or Tdap) [facility] Start: 04-09-2023 End: 04-09-2023 Patient encounter procedure 04/09/2023 Office Visit Family Medicine Yusuf Gan DO [address] [place] [id number] [facility] Start: 02-07-2023 Influenza vaccination Influenz a Vaccine (Season Ended) [facility] Start: 06-09-2022 DEPRESSION ASSESSMENT DEPRESSION ASS ESSMENT [facility] Start: 02-07-2022 Influenza vaccination INFLUENZA (#1) [facility] Start: 2017 PAP TESTING PAP TESTING [facility] Start: 2017 Screening for malign ant neoplasm of cervix Pap Smear [facility] Start: 2015 Urine microalbumin profile DTAP,TDAP,TD (1 - Tdap) [facility] Start: 2014 HEPATITIS C SCREENING HEPATITIS C [facility] Start: 2014 Hepatitis C screening Hepatitis C [facility] Start: 2014 HIV SCREENING [facility] Start: 2010 PEDS TO ADULT TRANSI TION ANNUAL ASSESSMENT PEDS TO ADULT TRANSITION ANNUAL ASSESSMENT [facility] Start: 2008 PEDS TO ADULT TRANSI TION INITIAL DISCUSSION PEDS TO ADULT TRANSITION INITIAL DISCUSSION [facility] Start: 2007 HPV VACCINE (1 - 2-d ose series) HPV VACCINE (1 - 2-dose series) [facility] Start: 02-16-2002 Varicella vaccination Varicell a Vaccines (1 of 2 - 2-dose childhood series) [facility] Start: 01-10-1997 COVID-19 VACCINE (#1) COVID-19 VACCI NE (#1) [facility] Start: 1996 HEPATITIS B (1 of 3 - 3-dose series) HEPATITIS B (1 of 3 - 3-dose series) [facility] Start: 1996 HIV screening HIV Screening [facility] Immunizations Immunization Date Immunization Notes Care Provider Fa cility 06-17-2022 tetanus toxoid, redu tiffanie diphtheria toxoid, and acellular pertussis vaccine, adsorbed Yusuf Gan DO Work Phone: [facility] 04-16-2018 tetanus toxoid, redu tiffanie diphtheria toxoid, and acellular pertussis vaccine, adsorbed Yusuf Gan DO Work Phone: [facility] 07-30-2013 human papilloma viru s vaccine, quadrivalent Yusuf Gan DO Work Phone: [facility] 03-29-2013 human papilloma viru s vaccine, quadrivalent Yusuf Gan DO Work Phone: [facility] 01-20-2013 HPV, unspecified formulation Yusuf Gan DO Work Phone: [facility] 01-20-2013 meningococcal polysaccharide (groups A, C, Y and W-135) diphtheria toxoid conjugate vaccine (MCV4P) Yusuf Gan DO Work Phone: [facility] 01-20-2013 tetanus toxoid, redu tiffanie diphtheria toxoid, and acellular pertussis vaccine, adsorbed Yusuf Gan DO Work Phone: [facility] 01-19-2002 diphtheria, tetanus toxoids and acellular pertussis vaccine, unspecified formulation Yusuf Gan DO Work Phone: [facility] 01-19-2002 measles, mumps and r ubella virus vaccine Yusuf Gan DO Work Phone: [facility] 01-19-2002 poliovirus vaccine, inactivated Yusuf Gan DO Work Phone: [facility] 11-08-1997 diphtheria, tetanus toxoids and acellular pertussis vaccine, unspecified formulation Yusuf Gan DO Work Phone: [facility] 11-08-1997 haemophilus influenz ae type b vaccine, PRP-T conjugate Yusuf Gan DO Work Phone: [facility] 11-08-1997 measles, mumps and r ubella virus vaccine Yusuf Gan DO Work Phone: [facility] 04-04-1997 hepatitis B vaccine, pediatric or pediatric/adolescent dosage Yusuf Gan DO Work Phone: [facility] 04-04-1997 trivalent poliovirus vaccine, live, oral Yusuf Gan DO Work Phone: [facility] 01-10-1997 diphtheria, tetanus toxoids and pertussis vaccine Yusuf Gan DO Work Phone: [facility] 01-10-1997 haemophilus influenz ae type b vaccine, PRP-T conjugate Yusuf Gan DO Work Phone: [facility] 1996 diphtheria, tetanus toxoids and pertussis vaccine Yusuf Rutlla DO Work Phone: [facility] 1996 haemophilus influenz ae type b vaccine, PRP-T conjugate Yusuf Gan DO Work Phone: [facility] 1996 trivalent poliovirus vaccine, live, oral Yusuf Jimeneza DO Work Phone: [facility] 1996 diphtheria, tetanus toxoids and pertussis vaccine Yusuf Bettencourtlla DO Work Phone: [facility] 1996 haemophilus influenz ae type b vaccine, PRP-T conjugate Yusuf Gan DO Work Phone: [facility] 1996 hepatitis B vaccine, pediatric or pediatric/adolescent dosage Yusuf Gan DO Work Phone: [facility] 1996 trivalent poliovirus vaccine, live, oral Yusuf Gan DO Work Phone: [facility] 1996 hepatitis B vaccine, pediatric or pediatric/adolescent dosage Yusuf Bettencourtlla DO Work Phone: [facility] Payers Date Payer Category Payer Medicaid [id number] 2022 Unknown [id number] 1996 Unknown [id number] 1996 Unknown [id number] Social History Date Type Detail Facility Start: 08-16-2022 Tobacco smoking status Never s moked tobacco (finding) [facility] Start: 1996 Sex Assigned At Female [facility] Start: 08-16-2022 Tobacco use and exposure Smokeless tobacco non-user [facility] Start: 1996 Sex Assigned At Not on file [facility] Tobacco smoking stat us SDIS Ex-smoker [facility] End: 06-13-2020 History of tobacco use Current smoker [facility] End: 06-13-2020 History of tobacco use Cigarette Smoker [facility] Start: 10-07-2022 Alcohol intake Current drinke r of alcohol (finding) [facility] Start: 09-27-2022 End: 10-07-2022 Exposure to SARS-CoV-2 (event) Not sure [facility] Functional Status Date Assessment Result Facility 04-02-2022 Functional Status Independent [facility] Mental Status Date Assessment Result Facility 04-02-2022 Mental Status Orientation Oriented x 4 [facility] Clinical Notes 04-02-2022 to 10-07-2022 Yusuf Gan DO - 10/07/2022 4:00 PM EDTPatient KARINA Flores - 08/16/2022 7:49 AM EST Note Date & Type Note Facility 10-07-2022 History of Present illness Narrative Images from the original note were not included. [facility] [address] [place] [id number] Visit type: Established Patient Reason for Visit: Follow-up (Med check) and Sinus Problem Assessment / Plan: Shakira was seen today for follow-up and sinus problem. Diagnoses and all orders for this visit: Mild episode of recurrent major depressive disorder (HCC) (Primary) Comments: Improved, continue Lexapro Acute non-recurrent frontal sinusitis Comments: New onset, amoxicillin Other orders - escitalopram (Lexapro) 20 MG tablet; Take 1 tablet (20 mg) by mouth daily for 30 doses. - amoxicillin (Amoxil) 500 MG capsule; Take 1 capsule (500 mg) by mouth 3 times daily for 10 days. Subjective: Patient ID: Shakira Izquierdo is a 27 y.o. female. HPI patient presents for refill on Lexapro. She feels it helps a lot. Has helped generalized anxiety and her depression. She does note she got last February. Her is very supportive. She has a 4-year-old son Kenneth who is healthy but does have nonverbal autism. Her is very supportive. Of note they also have custody of a1-year-old infant boy who was the son of her 's cousin who is in incarcerated for substance abuse. It might be adopting that child. Review of Systems she feels well overall except for recent sinus infection . Heavy nasal drainage with some color. Some facial pain. No fever or headache. No cough or wheezing or shortness of breath. No vomiting or diarrhea. She does feel the Lexapro is helpful. 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 ondansetron ODT (Zofran-ODT) 4 MG disintegrating tablet dissolve 1 tablet ON TONGUE every 8 hours if needed for nausea [DISCONTINUED] escitalopram (Lexapro) 10 MG tablet Take 1 tablet (10 mg) by mouth daily. 30 tablet 0 [DISCONTINUED] levonorgestrel-ethinyl estradiol (Aviane, Alesse, Lessina) 0.1-20 MG-MCG tablet [DISCONTINUED] norethindrone ac-eth estradio (Loestrin) 1.5-30 MG-MCG tablet tablet Take by mouth. No current facility-administered medications on file prior to visit. Patient Active Problem List Diagnosis Uses oral contraception Mild intermittent asthma without complication Episode of recurrent major depressive disorder (HCC) Social History Tobacco Use Smoking status: Former Packs/day: 0.25 Types: Cigarettes Quit date: 06/13/2020 Years since quittin.3 Smokeless tobacco: Never Substance Use Topics Alcohol use: Yes Past Surgical History: Procedure Laterality Date DILATION AND CURETTAGE OF UTERUS 05/2020 Family History Problem Relation Name Age of Onset Stroke Mother Fracisco Jimenez No Known Problems Father Riky Bipolar disorder Sister 1/2 sis No Known Problems Brother 5 06/10 bro Objective: BP 108/69 Pulse 72 Temp 36.2 C (97.1 F) (Temporal) Ht 5' 7 (1.702 m) Wt 256 lb (116 kg) SpO2 99% BMI 40.10 kg/m Physical Exam doe postnasal drip. Normal eardrums and adenopathy. No neck masses or thyroid lesions. Heart is regular. Lungs are clear. Abdomen obese nontender without pain hepatosplenomegaly or masses. She is well-groomed has good insight and eye contact. She is jovial and upbeat today. documented in this encounter [facility] 08-16-2022 Note HNO ID: [id number] Author: KARINA Lim Service: ? Author Type: Physician House Worker General Type: Progress Notes Filed: 08/16/2022 8:10 AM Note Text: This note was created using [employer]. Subjective Shakira Izquierdo is a 27 year old female. HPI 27-year-old female presents for sore throat and congestion. Patient has had a sore throat for the past 2 to 3 days. She has had congestion and postnasal drainage. 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 She has no vomiting or diarrhea. No fevers. No chest pain or shortness of breath. No cough No past medical history on file. No past surgical history on file. ALLERGIES Patient has no known allergies. MEDICATIONS levonorgestrel (MIRENA INTRAUTERINE) by INTRAUTERINE route. escitalopram oxalate (LEXAPRO) 10 mg tablet Take 10 mg by mouth once daily. albuterol HFA (PROAIR HFA) 90 mcg/actuation inhaler Inhale 2 Puffs as instructed every 6 hours as needed. albuterol HFA (PROAIR HFA) 90 mcg/actuation inhaler Inhale 2 Puffs as instructed every 4 hours as needed. (Patient not taking: Reported on 07/29/2019 ) Norethindrone Acet-Ethinyl Est 1.5-30 mg-mcg Take by mouth. (Patient not taking: Reported on 08/16/2022) No family history on file. Social History Tobacco Use Smoking status: Never Smokeless tobacco: Never Vaping Use Vaping Use: Never used Review of Systems Constitutional: Negative for chills and fever. HENT: Positive for congestion and sore throat. Negative for ear pain. Respiratory: Negative for cough and shortness of breath. Cardiovascular: Negative for chest pain. Gastrointestinal: Negative for diarrhea and vomiting. Objective BP 132/76 Pulse 111 Temp 36.7 ?C (98.1 ?F) (Tympanic) Resp 18 Wt 112.6 kg (248 lb 3.2 oz) LMP 07/01/2019 (Exact Date) SpO2 99% Physical Exam Vitals and nursing note reviewed. Constitutional: General: She is not in acute distress. Appearance: Normal appearance. She is not toxic-appearing. HENT: Right Ear: Tympanic membrane and ear canal normal. Left Ear: Tympanic membrane and ear canal normal. Nose: Nose normal. Mouth/Throat: Mouth: Mucous membranes are moist. Pharynx: Uvula midline. Posterior oropharyngeal erythema present. No oropharyngeal exudate. Tonsils: No tonsillar exudate or tonsillar abscesses. 1+ on the right. 1+ on the left. Eyes: Conjunctiva/sclera: Conjunctivae normal. Cardiovascular: Rate and Rhythm: Normal rate and regular rhythm. Pulmonary: Effort: Pulmonary effort is normal. Breath sounds: Normal breath sounds. Neurological: Mental Status: She is alert. Assessment and Plan ASSESSMENT/PLAN: 1. Sore throat - ICD9: 462, ICD10: J02.9 (primary diagnosis) - suspect viral - Alere Strep Test negative, no culture pending - Discussed supportive care treatment with fluids, rest and analgesia. - STREP A MOLECULAR (POC) 2. URI, acute - ICD9: 465.9, ICD10: J06.9 - Discussed viral etiology and rationale for treatment. - Symptomatic treatment with prn analgesia - Supportive care with fluids and rest -Declines COVID/flu swab Diagnosis and treatment plan were discussed and questions were answered to the patient's satisfaction. Pt acknowledged understanding of concepts and follow up plan. Specific signs and symptoms that would indicate the need for higher level of care were discussed in detail warranting prompt ER evaluation. KARINA Lim [facility] 08-16-2022 Instructions KARINA Lim - 08/16/2022 8:04 AM EST PHARYNGITIS PATIENT INSTRUCTIONS DESCRIPTION: Inflammation and infection of the pharynx that can be caused by a variety of germs. SIGNS AND SYMPTOMS: -Sore throat. -Swallowing difficulty. -Tickle or lump in the throat. -Fever. -Swollen glands in the neck (sometimes). -Throat may be red or covered with a grayish membrane (sometimes). -Generalized aching. CAUSES: Infection from bacteria, viruses or fungi. PREVENTIVE MEASURES: -Avoid close contact with anyone with a sore throat. -Keep immunizations, including diphtheria, up to date. TREATMENT: -Laboratory throat culture and blood count may be done to determine type of infection. -Home care is usually sufficient. -Use gargles to relieve throat pain. Prepare double strength tea, hot or cold, or a salt-water solution (1 teaspoon salt in 8 oz. warm water). Use to gargle as often as you wish. -Use a cool-mist ultrasonic humidifier to increase air moisture. This will relieve the dry, tight feeling in the throat. Clean humidifier daily. -If the glands are large and tender, apply moist, warm soaks at least 4 times a day for 30 to 60 minutes. The compresses will be more effective if they are kept warm. Be careful not to burn the skin. -Replace your toothbrush. It may be harboring germs. -Until infection is gone, don't share washcloths; or food. MEDICATIONS: -For minor discomfort you may use non-prescription drugs such as acetaminophen. Don't give aspirin to a child for any viral illness. -Non-prescription throat lozenges may help ease discomfort. -Antibiotics or antifungal agents to fight bacterial or fungal infections. Be sure to finish entire course of prescribed antibiotics to avoid complications. ACTIVITY: Limited activity is necessary until symptoms disappear. DIET: Extra fluids are necessary. Drink at least 8 glasses of fluid daily, more for high fevers. If swallowing solid food is painful, try a liquid or soft diet for a few days. NOTIFY OFFICE: -The following occur during treatment: Breathing or swallowing difficulty. Fever; severe headache. Thick mucus drainage from the nose. Productive cough that is discolored. Skin rash. Dark urine. Chest pain. documented in this encounter [facility] 08-16-2022 History of Present illness Narrative This note was created using [employer]. Subjective Shakira Izquierdo is a 27 year old female. HPI 27-year-old female presents for sore throat and congestion. Patient has had a sore throat for the past 2 to 3 days. She has had congestion and postnasal drainage. 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 She has no vomiting or diarrhea. No fevers. No chest pain or shortness of breath. No cough No past medical history on file. No past surgical history on file. ALLERGIES Patient has no known allergies. MEDICATIONS levonorgestrel (MIRENA INTRAUTERINE) by INTRAUTERINE route. escitalopram oxalate (LEXAPRO) 10 mg tablet Take 10 mg by mouth once daily. albuterol HFA (PROAIR HFA) 90 mcg/actuation inhaler Inhale 2 Puffs as instructed every 6 hours as needed. albuterol HFA (PROAIR HFA) 90 mcg/actuation inhaler Inhale 2 Puffs as instructed every 4 hours as needed. (Patient not taking: Reported on 07/29/2019 ) Norethindrone Acet-Ethinyl Est 1.5-30 mg-mcg Take by mouth. (Patient not taking: Reported on 08/16/2022) No family history on file. Social History Tobacco Use Smoking status: Never Smokeless tobacco: Never Vaping Use Vaping Use: Never used Review of Systems Constitutional: Negative for chills and fever. HENT: Positive for congestion and sore throat. Negative for ear pain. Respiratory: Negative for cough and shortness of breath. Cardiovascular: Negative for chest pain. Gastrointestinal: Negative for diarrhea and vomiting. Objective BP 132/76 Pulse 111 Temp 36.7 C (98.1 F) (Tympanic) Resp 18 Wt 112.6 kg (248 lb 3.2 oz) LMP 07/01/2019 (Exact Date) SpO2 99% Physical Exam Vitals and nursing note reviewed. Constitutional: General: She is not in acute distress. Appearance: Normal appearance. She is not toxic-appearing. HENT: Right Ear: Tympanic membrane and ear canal normal. Left Ear: Tympanic membrane and ear canal normal. Nose: Nose normal. Mouth/Throat: Mouth: Mucous membranes are moist. Pharynx: Uvula midline. Posterior oropharyngeal erythema present. No oropharyngeal exudate. Tonsils: No tonsillar exudate or tonsillar abscesses. 1+ on the right. 1+ on the left. Eyes: Conjunctiva/sclera: Conjunctivae normal. Cardiovascular: Rate and Rhythm: Normal rate and regular rhythm. Pulmonary: Effort: Pulmonary effort is normal. Breath sounds: Normal breath sounds. Neurological: Mental Status: She is alert. Assessment and Plan ASSESSMENT/PLAN: 1. Sore throat - ICD9: 462, ICD10: J02.9 (primary diagnosis) - suspect viral - Alere Strep Test negative, no culture pending - Discussed supportive care treatment with fluids, rest and analgesia. - STREP A MOLECULAR (POC) 2. URI, acute - ICD9: 465.9, ICD10: J06.9 - Discussed viral etiology and rationale for treatment. - Symptomatic treatment with prn analgesia - Supportive care with fluids and rest -Declines COVID/flu swab Diagnosis and treatment plan were discussed and questions were answered to the patient's satisfaction. Pt acknowledged understanding of concepts and follow up plan. Specific signs and symptoms that would indicate the need for higher level of care were discussed in detail warranting prompt ER evaluation. KARINA Lim documented in this encounter [facility] 04-04-2022 Note . MICRO - Microbiology PROCEDURE: Urine Culture [*1] SOURCE: Urine BODY SITE: COLLECTED DATE/TIME: 04/02/2022 21:01 EDT RECEIVED DATE/TIME: 04/03/2022 14:26 EDT START DATE/TIME: 04/03/2022 14:26 EDT FREE TEXT SOURCE: FINAL REPORTS Final Report [] Verified Date/Time/Personnel: 04/04/2022 14:22 EDT 10,000 - 50,000 cfu/ml Mixed growth consistent with normal urogenital cherie. Performing Locations *1: This test was performed at: [facility], [address] [place] [address], [id number] , [facility] ([place]) 04-02-2022 Hospital Discharge instructions Patient Education 04/02/2022 21:38:00 Back Exercises, Lumbar Exercises to Strengthen Your Lower Back Strong lower back and abdominal muscles work together to support your spine. The exercises below will help strengthen the lower back. It is important that you begin exercising slowly and increase levels gradually. Always begin any exercise program with stretching. If you feel pain while doing any of these exercises, stop and talk to your doctor about a more specific exercise program that better suits your condition. Low back stretch The point of stretching is to make you more flexible and increase your range of motion. Stretch only as much as you are able. Stretch slowly. Do not push your stretch to the limit. If at any point you feel pain while stretching, this is your (temporary) limit. Lie on your back with your knees bent and both feet on the ground. Slowly raise your left knee to your chest as you flatten your lower back against the floor. Hold for 5 seconds. Relax and repeat the exercise with your right knee. Do 10 of these exercises for each leg. Repeat hugging both knees to your chest at the same time. Building lower back strength Start your exercise routine with 10 to 30 minutes a day, 1 to 3 times a day. Initial exercises Lying on your back: 1. Ankle pumps: Move your foot up and down, towards your head, and then away. Repeat 10 times with each foot. 2. Heel slides: Slowly bend your knee, drawing the heel of your foot towards you. Then slide your heel/foot from you, straightening your knee. Do not lift your foot off the floor (this is not a leg lift). 3. Abdominal contraction: Bend your knees and put your hands on your stomach. Tighten your stomach muscles. Hold for 5 seconds, then relax. Repeat 10 times. 4. Straight leg raise: Bend one leg at the knee and keep the other leg straight. Tighten your stomach muscles. Slowly lift your straight leg 6 to 12 inches off the floor and hold for up to 5 seconds. Repeat 10 times on each side. Standin. Wall squats: Stand with your back against the wall. Move your feet about 12 inches away from the wall. Tighten your stomach muscles, and slowly bend your knees until they are at about a 45 degree angle. Do not go down too far. Hold about 5 seconds. Then slowly return to your starting position. Repeat 10 times. 2. Heel raises: Stand facing the wall. Slowly raise the heels of your feet up and down, while keeping your toes on the floor. If you have trouble balancing, you can touch the wall with your hands. Repeat 10 times. More advanced exercises When you feel comfortable enough, try these exercises. 1. Kneeling lumbar extension: Begin on your hands and knees. At the same time, raise and straighten your right arm and left leg until they are parallel to the ground. Hold for 2 seconds and come back slowly to a starting position. Repeat with left arm and right leg, alternating 10 times. 2. Prone lumbar extension: Lie face down, arms extended overhead, palms on the floor. At the same time, raise your right arm and left leg as high as comfortably possible. Hold for 10 seconds and slowly return to start. Repeat with left arm and right leg, alternating 10 times. Gradually build up to 20 times. (Advanced: Repeat this exercise raising both arms and both legs a few inches off the floor at the same time. Hold for 5 seconds and release.) 3. Pelvic tilt: Lie on the floor on your back with your knees bent at 90 degrees. Your feet should be flat on the floor. Inhale, exhale, then slowly contract your abdominal muscles bringing your navel toward your spine. Let your pelvis rock back until your lower back is flat on the floor. Hold for 10 seconds while breathing smoothly. 4. Abdominal crunch: Perform a pelvic tilt (above) flattening your lower back against the floor. Holding the tension in your abdominal muscles, take another breath and raise your shoulder blades off the ground (this is not a full sit-up). Keep your head in line with your body (don t bend your neck forward). Hold for 2 seconds, then slowly lower. [id number] [employer]. [address] [place] [address]. All rights reserved. This information is not intended as a substitute for professional medical care. Always follow your healthcare professional's instructions. 04/02/2022 21:37:59 Back Spasm, No Trauma Back Spasm (No Trauma) Spasm of the back muscles can occur after a sudden forceful twisting or bending such as in a car accident. A spasm can also happen after a simple awkward movement, or after lifting something heavy with poor body positioning. In any case, muscle spasm adds to the pain. Sleeping in an awkward position or on a poor quality mattress can also cause this. Some people respond to emotional stress by tensing the muscles of their back. Pain that continues may need further assessment or other types of treatment such as physical therapy. You don't always need X-rays for the first assessment of back pain, unless you had a physical injury such as from a car accident or fall. If your pain continues and doesn't respond to medical treatment, X-rays and other tests may then be done. Home care As soon as possible, start sitting or walking again. This will help prevent problems from a long bed rest. These problems include muscle weakness, worsening back stiffness and pain, and blood clots in the legs. When in bed, try to find a position of comfort. A firm mattress is best. Try lying flat on your back with pillows under your knees. You can also try lying on your side with your knees bent up toward your chest and a pillow between your knees. Don't sit for long periods. Also limit car rides and travel. This puts more stress on the lower back than standing or walking. During the first 24 to 72 hours after an injury or flare-up, put an ice pack on the painful area for 20 minutes, then remove it for 20 minutes. Do this over a period of 60 to 90 minutes, or several times a day. This will reduce swelling and pain. Always wrap ice packs in a thin towel. You can start with ice, then switch to heat. Heat from a hot shower, hot bath, or heating pad reduces pain and works well for muscle spasms. Put heat on the painful area for 20 minutes, then remove it for 20 minutes. Do this over a period of 60 to 90 minutes, or several times a day. Don't sleep on a heating pad. It can burn or damage skin. Alternate using ice and heat. Be aware of safe lifting methods. don't lift anything over 15 pounds until all the pain is gone. Gentle stretching will help your back heal faster. Do this simple routine 2 to 3 times a day until your back is feeling better. Lie on your back with your knees bent and both feet on the ground. Slowly raise your left knee to your chest as you flatten your lower back against the floor. Hold for 20 to 30 seconds. Relax and repeat the exercise with your right knee. Do 2 to 3 of these exercises for each leg. Repeat, hugging both knees to your chest at the same time. Don't bounce, but use a gentle pull. Medicines Talk with your doctor before using medicine, especially if you have other medical problems or are taking other medicines. You may use oema-fbt-dlxscvn medicines such as acetaminophen, ibuprofen, or naprosyn to control pain, unless your healthcare provider prescribed another pain medicine. Talk with your healthcare provider if you have a chronic condition such as diabetes, liver or kidney disease, stomach ulcer, or digestive bleeding, or are taking blood thinners. Be careful if you are given prescription pain medicine, opioids, or medicine for muscle spasm. They can cause drowsiness, and affect your coordination, reflexes, and judgment. Don't drive or operate heavy machinery when taking these medicines. Take pain medicine only as prescribed by your healthcare provider. Follow-up care Follow up with your doctor, or as advised. You may need physical therapy or more tests. If X-rays were taken, they may be reviewed by a radiologist. You will be told of any new findings that may affect your care. Call Call if any of these occur: Trouble breathing Confusion Drowsiness or trouble awakening Fainting or loss of consciousness Rapid or very slow heart rate Loss of bowel or bladder control When to seek medical advice Call your healthcare provider right away if any of these occur: Pain becomes worse or spreads to your legs Weakness or numbness in one or both legs Numbness in the groin or genital area Fever of 100.4 F (38 C) or higher , or as directed by your healthcare provider Chills Burning or pain when passing urine [id number] [employer] [address] [place] [address]. All rights reserved. This information is not intended as a substitute for professional medical care. Always follow your healthcare professional's instructions. Follow Up Care 04/02/2022 20:49:18 With:ULI ALVAREZ MD Address: [facility] [address] [place] [id number]- When:2-4 days Comments:If no improvement [facility] 04-02-2022 Note Discharge Instructions Thank you for allowing [facility] to assist you with your healthcare needs. The following is important discharge information regarding your hospital visit. Diagnosis from Today's Visit Back pain Flank pain What to Do Next Instructions from Your Care Team Hi Shakira, you likely have strain of your back muscles. You were given a dose of Toradol while here and will be given script for muscle relaxant and ibuprofen. Continue to do streching exercises, heat or ice. If there is no improvement or worsening of your symptoms please seek evaluation. No qualifying data available. Post Acute Orders No qualifying data available. You Need to Schedule the Following Appointments Follow Up with ULI ALVAREZ MD When Within 2-4 days Why: If no improvement Where: [facility] [id number] [place] [address]- Allergies NKA Medications Please ask your primary doctor or pharmacist before taking any other medication not listed, including over the counter drugs, herbal medications, vitamins and or supplements as they may interact with your home medications. What How Much When Instructions Last Dose New tiZANidine (tiZANidine 2 mg oral capsule) 1 cap by mouth Every 8 hours as needed for as needed for muscle spasm Duration: 7 Days Printed Prescription Changed ibuprofen (ibuprofen 600 mg oral tablet) 1 tab(s) by mouth Every 6 hours as needed for for pain Duration: 7 Days Take with food or milk. Printed Prescription Changed ibuprofen (Motrin) by mouth Please take this list to your next doctor s visit. Bring all medications you take, including over the counter medications, herbals and other supplements with you to your doctor s visit. Patients and families are reminded to discard old lists and to update any records with all medication providers or retail pharmacies. Medication Leaflets tizanidine (glenn carr) Gris What is the most important information I should know about tizanidine? You should not take tizanidine if you are also taking fluvoxamine or ciprofloxacin. Do not use tizanidine at a time when you need muscle tone for safe balance and movement during certain activities. What is tizanidine? Tizanidine is a muscle relaxer that is used to treat spasticity by temporarily relaxing muscle tone. Tizanidine may also be used for purposes not listed in this medication guide. What should I discuss with my healthcare provider before taking tizanidine? You should not use tizanidine if you are allergic to it, or if: you also take the antidepressant fluvoxamine (Luvox); or you also take the antibiotic ciprofloxacin (Cipro). Tell your doctor if you have ever had: liver disease; kidney disease; or low blood pressure. It is not known whether this medicine will harm an unborn baby. Tell your doctor if you are or plan to become . It may not be safe to breastfeed while using this medicine. Ask your doctor about any risk. How should I take tizanidine? Follow all directions on your prescription label and read all medication guides or instruction sheets. Your doctor may occasionally change your dose. Use the medicine exactly as directed. Tizanidine is usually taken up to 3 times in one day. Allow 6 to 8 hours to pass between doses. Do not take more than three doses (36 mg) in a 24-hour period. Too much of this medicine can damage your liver. You may take tizanidine with or without food, but take it the same way each time. Switching between taking tizanidine with food and taking it without food can make the medicine less effective or cause increased side effects. Switching between tizanidine tablets and capsules may cause changes in side effects or how well the medicine works. Taking the tablets with food can increase your blood levels of tizanidine. Taking the capsules with food can decrease your blood levels of tizanidine. If you make any changes in how you take tizanidine, tell your doctor if you notice any change in side effects or in how well the medicine works. Tizanidine is a short-acting medication, and its effects will be most noticeable between 1 and 3 hours after you take it. You should take tizanidine only for daily activities that require relief from muscle spasms. You will need frequent medical tests. If you stop using tizanidine suddenly after long-term use, you may have withdrawal symptoms such as dizziness, fast heartbeats, tremors, and anxiety. Ask your doctor how to safely stop using this medicine. Store at room temperature away from moisture and heat. What happens if I miss a dose? Take the medicine as soon as you can, but skip the missed dose if it is almost time for your next dose. Do not take two doses at one time. What happens if I overdose? Seek emergency medical attention or call the Poison Help line at . Overdose symptoms may include weakness, drowsiness, confusion, slow heart rate, shallow breathing, feeling light-headed, or fainting. What should I avoid while taking tizanidine? Do not use tizanidine at a time when you need muscle tone for safe balance and movement during certain activities. In some situations, it may be dangerous for you to have reduced muscle tone. Drinking alcohol with this medicine can cause side effects. Avoid driving or hazardous activity until you know how this medicine will affect you. Your reactions could be impaired. Avoid getting up too fast from a sitting or lying position, or you may feel dizzy. What are the possible side effects of tizanidine? Get emergency medical help if you have signs of an allergic reaction: hives; difficult breathing; swelling of your face, lips, tongue, or throat. Call your doctor at once if you have: a light-headed feeling, like you might pass out; weak or shallow breathing; confusion, hallucinations; or pain or burning when you urinate. Common side effects may include: drowsiness, dizziness, weakness; feeling nervous; blurred vision; flu-like symptoms; dry mouth, trouble speaking; abnormal liver function tests; runny nose, sore throat; urination problems, painful urination; vomiting, constipation; or uncontrolled muscle movements. This is not a complete list of side effects and others may occur. Call your doctor for medical advice about side effects. You may report side effects to FDA at 1-685-RQN-0344. What other drugs will affect tizanidine? Taking tizanidine with other drugs that make you sleepy or slow your breathing can cause dangerous side effects or . Ask your doctor before using opioid medication, a sleeping pill, a muscle relaxer, or medicine for anxiety or seizures. Tell your doctor about all your other medicines, especially: acyclovir; ticlopidine; zileuton; control pills; an antibiotic--ciprofloxacin, levofloxacin, moxifloxacin, or ofloxacin; blood pressure medicine--clonidine, guanfacine, methyldopa; heart rhythm medicine--amiodarone, mexiletine, propafenone, verapamil; or stomach acid medicine--cimetidine, famotidine. This list is not complete. Other drugs may affect tizanidine, including prescription and gnow-lcz-jynsejo medicines, vitamins, and herbal products. Not all possible drug interactions are listed here. Where can I get more information? Your pharmacist can provide more information about tizanidine. Remember, keep this and all other medicines out of the reach of children, never share your medicines with others, and use this medication only for the indication prescribed. Every effort has been made to ensure that the information provided by [employer]') is accurate, up-to-date, and complete, but no guarantee is made to that effect. Drug information contained herein may be time sensitive. [employer] information has been compiled for use by healthcare practitioners and consumers in the [place] and therefore [employer] does not warrant that uses outside of the [place] are appropriate, unless specifically indicated otherwise. [employer] drug information does not endorse drugs, diagnose patients or recommend therapy. [employer] drug information is an informational resource designed to assist licensed healthcare practitioners in caring for their patients and/or to serve consumers viewing this service as a supplement to, and not a substitute for, the expertise, skill, knowledge and judgment of healthcare practitioners. The absence of a warning for a given drug or drug combination in no way should be construed to indicate that the drug or drug combination is safe, effective or appropriate for any given patient. [employer] does not assume any responsibility for any aspect of healthcare administered with the aid of information [employer] provides. The information contained herein is not intended to cover all possible uses, directions, precautions, warnings, drug interactions, allergic reactions, or adverse effects. If you have questions about the drugs you are taking, check with your doctor, nurse or pharmacist. Copyright 7962-7644 [employer] Version: 4.01. Revision Date: 08/14/2020. ibuprofen (EYE bue PROE fen) Advil, Genpril, IBU, Midol IB, Motrin IB, Proprinal, Smart Sense Children's Ibuprofen What is the most important information I should know about ibuprofen? Ibuprofen can increase your risk of fatal heart attack or stroke. Do not use this medicine just before or after heart bypass surgery (coronary artery bypass graft, or CABG). Ibuprofen may also cause stomach or intestinal bleeding, which can be fatal. What is ibuprofen? Ibuprofen is a nonsteroidal anti-inflammatory drug (NSAID). Ibuprofen is used to reduce fever and treat pain or inflammation caused by many conditions such as headache, toothache, back pain, arthritis, menstrual cramps, or minor injury. This medicine is used in adults and children who are at least 6 months old. Ibuprofen may also be used for purposes not listed in this medication guide. What should I discuss with my healthcare provider before taking ibuprofen? Ibuprofen can increase your risk of fatal heart attack or stroke, even if you don't have any risk factors. Do not use this medicine just before or after heart bypass surgery (coronary artery bypass graft, or CABG). Ibuprofen may also cause stomach or intestinal bleeding, which can be fatal. These conditions can occur without warning while you are using ibuprofen, especially in older adults. You should not use ibuprofen if you are allergic to it, or if you have ever had an asthma attack or severe allergic reaction after taking aspirin or an NSAID. Ask a doctor or pharmacist if this medicine is safe to use if you have ever had: heart disease, high blood pressure, high cholesterol, diabetes, or if you smoke; a heart attack, stroke, or blood clot; stomach ulcers or bleeding; liver or kidney disease; asthma; or if you take aspirin to prevent heart attack or stroke. Ask a doctor before using this medicine if you are or . If you are , you should not take ibuprofen unless your doctor tells you to. Taking an NSAID during the last 20 weeks of can cause serious heart or kidney problems in the unborn baby and possible complications with your . Do not give ibuprofen to a child younger than 6 months old without the advice of a doctor. How should I take ibuprofen? Use exactly as directed on the label, or as prescribed by your doctor. Use the lowest dose that is effective in treating your condition. An ibuprofen overdose can damage your stomach or intestines. The maximum amount of ibuprofen for adults is 800 milligrams per dose or 3200 mg per day (4 maximum doses). A child's dose of ibuprofen is based on the age and weight of the child. Carefully follow the dosing instructions provided with children's ibuprofen for the age and weight of your child. Ask a doctor or pharmacist if you have questions. Take ibuprofen with food or milk to lessen stomach upset. Shake the oral suspension (liquid) before you measure a dose. Use the dosing syringe provided, or use a medicine dose-measuring device (not a kitchen spoon). You must chew the chewable tablet before you swallow it. Store at room temperature away from moisture and heat. Do not allow the liquid medicine to freeze. What happens if I miss a dose? Since ibuprofen is used when needed, you may not be on a dosing schedule. Skip any missed dose if it's almost time for your next dose. Do not use two doses at one time. What happens if I overdose? Seek emergency medical attention or call the Poison Help line at . Overdose symptoms may include nausea, vomiting, stomach pain, drowsiness, black or bloody stools, coughing up blood, shallow breathing, fainting, or coma. What should I avoid while taking ibuprofen? Ask a doctor or pharmacist before using other medicines for pain, fever, swelling, or cold/flu symptoms. They may contain ingredients similar to ibuprofen (such as aspirin, ibuprofen, ketoprofen, or naproxen). Avoid taking aspirin unless your doctor tells you to. If you also take aspirin to prevent stroke or heart attack, taking ibuprofen can make aspirin less effective in protecting your heart and blood vessels. If you take both medicines, take ibuprofen at least 8 hours before or 30 minutes after you take aspirin (non-enteric coated form). Avoid drinking alcohol. It may increase your risk of stomach bleeding. What are the possible side effects of ibuprofen? Get emergency medical help if you have signs of an allergic reaction (hives, difficult breathing, swelling in your face or throat) or a severe skin reaction (fever, sore throat, burning eyes, skin pain, red or purple skin rash with blistering and peeling). Get emergency medical help if you have signs of a heart attack or stroke: chest pain spreading to your jaw or shoulder, sudden numbness or weakness on one side of the body, slurred speech, leg swelling, feeling short of breath. Stop using ibuprofen and call your doctor at once if you have: changes in your vision; shortness of breath (even with mild exertion); swelling or rapid weight gain; a skin rash, no matter how mild; signs of stomach bleeding--bloody or tarry stools, coughing up blood or vomit that looks like coffee grounds; liver problems--nausea, upper stomach pain, itching, tired feeling, flu-like symptoms, loss of appetite, dark urine, yoly-colored stools, jaundice (yellowing of the skin or eyes); low red blood cells (anemia)--pale skin, feeling light-headed or short of breath, rapid heart rate, trouble concentrating; or kidney problems--little or no urinating, painful or difficult urination, swelling in your feet or ankles, feeling tired or short of breath. Common side effects may include: nausea, vomiting, gas; bleeding; or dizziness, headache. This is not a complete list of side effects and others may occur. Call your doctor for medical advice about side effects. You may report side effects to FDA at 8-915-IKL-6385. What other drugs will affect ibuprofen? Ask your doctor before using ibuprofen if you take an antidepressant. Taking certain antidepressants with an NSAID may cause you to bruise or bleed easily. Ask a doctor or pharmacist before using ibuprofen with any other medications, especially: cyclosporine; lithium; methotrexate; a blood thinner (warfarin, Coumadin, Jantoven); heart or blood pressure medication, including a diuretic or 'water pill'; or steroid medicine (such as prednisone). This list is not complete. Other drugs may affect ibuprofen, including prescription and qsyz-lqk-jqdvxwt medicines, vitamins, and herbal products. Not all possible drug interactions are listed here. Where can I get more information? Your pharmacist can provide more information about ibuprofen. Remember, keep this and all other medicines out of the reach of children, never share your medicines with others, and use this medication only for the indication prescribed. Every effort has been made to ensure that the information provided by [employer]. ('[employer]') is accurate, up-to-date, and complete, but no guarantee is made to that effect. Drug information contained herein may be time sensitive. [employer] information has been compiled for use by healthcare practitioners and consumers in the [place] and therefore [employer] does not warrant that uses outside of the [place] are appropriate, unless specifically indicated otherwise. ProMeds drug information does not endorse drugs, diagnose patients or recommend therapy. ProMeds drug information is an informational resource designed to assist licensed healthcare practitioners in caring for their patients and/or to serve consumers viewing this service as a supplement to, and not a substitute for, the expertise, skill, knowledge and judgment of healthcare practitioners. The absence of a warning for a given drug or drug combination in no way should be construed to indicate that the drug or drug combination is safe, effective or appropriate for any given patient. [employer] does not assume any responsibility for any aspect of healthcare administered with the aid of information [employer] provides. The information contained herein is not intended to cover all possible uses, directions, precautions, warnings, drug interactions, allergic reactions, or adverse effects. If you have questions about the drugs you are taking, check with your doctor, nurse or pharmacist. Copyright 9816-8948 [employer]. Version: 22.01. Revision Date: 05/03/2020. Education Materials Exercises to Strengthen Your Lower Back Strong lower back and abdominal muscles work together to support your spine. The exercises below will help strengthen the lower back. It is important that you begin exercising slowly and increase levels gradually. Always begin any exercise program with stretching. If you feel pain while doing any of these exercises, stop and talk to your doctor about a more specific exercise program that better suits your condition. Low back stretch The point of stretching is to make you more flexible and increase your range of motion. Stretch only as much as you are able. Stretch slowly. Do not push your stretch to the limit. If at any point you feel pain while stretching, this is your (temporary) limit. Lie on your back with your knees bent and both feet on the ground. Slowly raise your left knee to your chest as you flatten your lower back against the floor. Hold for 5 seconds. Relax and repeat the exercise with your right knee. Do 10 of these exercises for each leg. Repeat hugging both knees to your chest at the same time. Building lower back strength Start your exercise routine with 10 to 30 minutes a day, 1 to 3 times a day. Initial exercises Lying on your back: 1. Ankle pumps: Move your foot up and down, towards your head, and then away. Repeat 10 times with each foot. 2. Heel slides: Slowly bend your knee, drawing the heel of your foot towards you. Then slide your heel/foot from you, straightening your knee. Do not lift your foot off the floor (this is not a leg lift). 3. Abdominal contraction: Bend your knees and put your hands on your stomach. Tighten your stomach muscles. Hold for 5 seconds, then relax. Repeat 10 times. 4. Straight leg raise: Bend one leg at the knee and keep the other leg straight. Tighten your stomach muscles. Slowly lift your straight leg 6 to 12 inches off the floor and hold for up to 5 seconds. Repeat 10 times on each side. Standin. Wall squats: Stand with your back against the wall. Move your feet about 12 inches away from the wall. Tighten your stomach muscles, and slowly bend your knees until they are at about a 45 degree angle. Do not go down too far. Hold about 5 seconds. Then slowly return to your starting position. Repeat 10 times. 2. Heel raises: Stand facing the wall. Slowly raise the heels of your feet up and down, while keeping your toes on the floor. If you have trouble balancing, you can touch the wall with your hands. Repeat 10 times. More advanced exercises When you feel comfortable enough, try these exercises. 1. Kneeling lumbar extension: Begin on your hands and knees. At the same time, raise and straighten your right arm and left leg until they are parallel to the ground. Hold for 2 seconds and come back slowly to a starting position. Repeat with left arm and right leg, alternating 10 times. 2. Prone lumbar extension: Lie face down, arms extended overhead, palms on the floor. At the same time, raise your right arm and left leg as high as comfortably possible. Hold for 10 seconds and slowly return to start. Repeat with left arm and right leg, alternating 10 times. Gradually build up to 20 times. (Advanced: Repeat this exercise raising both arms and both legs a few inches off the floor at the same time. Hold for 5 seconds and release.) 3. Pelvic tilt: Lie on the floor on your back with your knees bent at 90 degrees. Your feet should be flat on the floor. Inhale, exhale, then slowly contract your abdominal muscles bringing your navel toward your spine. Let your pelvis rock back until your lower back is flat on the floor. Hold for 10 seconds while breathing smoothly. 4. Abdominal crunch: Perform a pelvic tilt (above) flattening your lower back against the floor. Holding the tension in your abdominal muscles, take another breath and raise your shoulder blades off the ground (this is not a full sit-up). Keep your head in line with your body (don t bend your neck forward). Hold for 2 seconds, then slowly lower. 3627-7739 [employer]. [address] [place] [address], [place] [address]. All rights reserved. This information is not intended as a substitute for professional medical care. Always follow your healthcare professional's instructions. Back Spasm (No Trauma) Spasm of the back muscles can occur after a sudden forceful twisting or bending such as in a car accident. A spasm can also happen after a simple awkward movement, or after lifting something heavy with poor body positioning. In any case, muscle spasm adds to the pain. Sleeping in an awkward position or on a poor quality mattress can also cause this. Some people respond to emotional stress by tensing the muscles of their back. Pain that continues may need further assessment or other types of treatment such as physical therapy. You don't always need X-rays for the first assessment of back pain, unless you had a physical injury such as from a car accident or fall. If your pain continues and doesn't respond to medical treatment, X-rays and other tests may then be done. Home care As soon as possible, start sitting or walking again. This will help prevent problems from a long bed rest. These problems include muscle weakness, worsening back stiffness and pain, and blood clots in the legs. When in bed, try to find a position of comfort. A firm mattress is best. Try lying flat on your back with pillows under your knees. You can also try lying on your side with your knees bent up toward your chest and a pillow between your knees. Don't sit for long periods. Also limit car rides and travel. This puts more stress on the lower back than standing or walking. During the first 24 to 72 hours after an injury or flare-up, put an ice pack on the painful area for 20 minutes, then remove it for 20 minutes. Do this over a period of 60 to 90 minutes, or several times a day. This will reduce swelling and pain. Always wrap ice packs in a thin towel. You can start with ice, then switch to heat. Heat from a hot shower, hot bath, or heating pad reduces pain and works well for muscle spasms. Put heat on the painful area for 20 minutes, then remove it for 20 minutes. Do this over a period of 60 to 90 minutes, or several times a day. Don't sleep on a heating pad. It can burn or damage skin. Alternate using ice and heat. Be aware of safe lifting methods. don't lift anything over 15 pounds until all the pain is gone. Gentle stretching will help your back heal faster. Do this simple routine 2 to 3 times a day until your back is feeling better. Lie on your back with your knees bent and both feet on the ground. Slowly raise your left knee to your chest as you flatten your lower back against the floor. Hold for 20 to 30 seconds. Relax and repeat the exercise with your right knee. Do 2 to 3 of these exercises for each leg. Repeat, hugging both knees to your chest at the same time. Don't bounce, but use a gentle pull. Medicines Talk with your doctor before using medicine, especially if you have other medical problems or are taking other medicines. You may use acvf-fja-iaweakp medicines such as acetaminophen, ibuprofen, or naprosyn to control pain, unless your healthcare provider prescribed another pain medicine. Talk with your healthcare provider if you have a chronic condition such as diabetes, liver or kidney disease, stomach ulcer, or digestive bleeding, or are taking blood thinners. Be careful if you are given prescription pain medicine, opioids, or medicine for muscle spasm. They can cause drowsiness, and affect your coordination, reflexes, and judgment. Don't drive or operate heavy machinery when taking these medicines. Take pain medicine only as prescribed by your healthcare provider. Follow-up care Follow up with your doctor, or as advised. You may need physical therapy or more tests. If X-rays were taken, they may be reviewed by a radiologist. You will be told of any new findings that may affect your care. Call Call if any of these occur: Trouble breathing Confusion Drowsiness or trouble awakening Fainting or loss of consciousness Rapid or very slow heart rate Loss of bowel or bladder control When to seek medical advice Call your healthcare provider right away if any of these occur: Pain becomes worse or spreads to your legs Weakness or numbness in one or both legs Numbness in the groin or genital area Fever of 100.4 F (38 C) or higher , or as directed by your healthcare provider Chills Burning or pain when passing urine [id number] [employer]. [address] [place] [address]. All rights reserved. This information is not intended as a substitute for professional medical care. Always follow your healthcare professional's instructions. Additional Information VACCINATE! IT SAVES LIVES! Members of the community who have not yet received the COVID-19 vaccine and would like to receive it can visit one of [facility] vaccine clinics. There are many vaccine clinic locations within the [facility]. For locations and available times, please visit [email or web address]. It is important to note that some COVID mobile vaccine clinics are held outdoors and may be canceled in rainy or stormy conditions. To learn more about pediatric vaccinations (ages 5-11), we invite you to visit the [facility] webpage. [email or web address] To learn more about the COVID-19 vaccine, we invite you to visit the [facility] website for a list of frequently asked questions. [email or web address] [facility] Patient Portal Access Instructions: Stay connected with your healthcare team and access your personal medical information anytime with the [facility] Patient Portal. If you would like a full copy of your medical records please contact the [facility] Medical Records Department Friday through Friday between 8a.m. and 4:30p.m. Please follow the directions below to access the portal: 1.Access the email account you provided upon registration to the [facility].2.Look for an invitation email from [facility].3.Open the email and access the invitation link: Accept Invitation to [facility]4.Fill in the required cantrell to create your account. Sign into [email or web address] with your username and password that you created in the above steps to stay up to date. You can then view a summary of results, a summary of your visits, and the ability to download your summaries to your computer or send the information securely to a physician. Remember that your healthcare information is confidential, so carefully consider who you will allow to register on the [facility] Patient Portal for access to your information. You can also access the [facility] Patient Portal on the [employer] stefano. Simply click on Health Records under Health Data and then click on the [employer] logo. HOW TO SAFELY DISPOSE OF PRESCRIPTION MEDICATIONS Please use one of the following methods to safely dispose of your unused medications. 1.Use a drug disposal kit: the drug disposal pouch allows you to safely discard your old and unused drugs. Ask your nurse to give you one when you are discharged.2.Visit a local take-back location: Many local pharmacies and police departments have programs that collect old and unwanted prescription drugs. Call your local pharmacy or go to http://Magiq.[employer]/5L4Ft4c to find one close to you.3.Make use of household items: Use cat litter or old coffee grounds to dispose medications if other options are not available. Mix your drugs with these household products, seal them in an airtight container and throw it into the garbage. Call [facility]: [phone] to be sure your drugs can be disposed of in this way. Some medicines may require a different approach.4.Never flush your medications down the toilet. IF YOU HAVE BEEN PRESCRIBED AN OPIOIDS FOR PAIN If you have been prescribed an opioid (such as hydrocodone, oxycodone or morphine), it is critical to understand the possible side effects and risks of opioid pain medications. Even when taken as directed, opioids can have several side effects including: Tolerance, meaning you might need to take more of a medication for the same pain relief. Nausea, vomiting and/or constipation. Sleepiness, dizziness, dry mouth, confusion, depression or itching. Physical dependence, meaning you have withdrawal symptoms when a medication is stopped ? this can develop within a few days. KNOW YOUR RESPONSIBILITIES It is important to know exactly how much and how often to take the opioid pain medications you are prescribed. Never take opioids in higher amounts or more often than prescribed. Do not combine opioids with alcohol or other drugs that cause drowsiness, such as benzodiazepines, also known as benzos, including diazepam and alprazolam, muscle relaxants or sleep aids. Never sell or share prescription opioids. This is illegal. Store opioids in a secure place and out of reach of others (including children, family, friends and visitors). The last page(s) of this document has been signed and retained as a CHART COPY Signatures Patient Education Materials Back Exercises, Lumbar Back Spasm, No Trauma Medication Leaflets tizanidine, ibuprofen My discharge plan and instructions have been reviewed and explained to me and I,SHAKIRA IZQUIERDO understand my current condition and have read and understand these discharge instructions. I have received a written copy of the plan/instructions. If I have questions, I am aware that I should contact my doctor. 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: Date/Time: Relationship to Patient: ____ Witness Name/Signature: Date/Time: [facility] 04-02-2022 Evaluation + Plan note Diagnostic Tests PendingUrine Culture 04/02/22 [facility] Mild episode of recurrent major depressive disorder (HCC)- Primary Acute non-recurrent frontal sinusitis [facility] Narrative No data available for this section [facility] Summary Purpose Family History No Family History Records FoundNo Family History Records FoundNo Family History Records FoundNo Family History Records Found Advance Directives No Advanced Directives Records FoundNo Advanced Directives Records FoundNo Advanced Directives Records FoundNo Advanced Directives Records Found Additional Source Comments Care Team (unrecognized sect ion and content) Care Team Personnel Name: ULI ALVAREZ MD Member Role: Primary Care Physician Address: Address: [facility] [address] [place] [address]- Name: HAMIDA GASTON MD Position: ED Physician Member Role: ED Physician Address: Address: [address] [place] [address] Name: Kerrie Gaston RN Position: AO RN Member Role: RN Care Team Related Persons Name: ALICIA ACEVEDO Address: [address] [place] [address] [place] Name: ALICIA ACEVEDO Address: [address] [place] [address] [place] Name: ALICIA ACEVEDO Address: [address] [place] [address] [place] Name: ALICIA ACEVEDO Address: [address] [place] [address] [place] Name: ALICIA ACEVEDO Address: [address] [place] [address] [place] Name: ALICIA ACEVEDO Address: Home [address] [place], [place] [address] [address] Name: ALICIA ACEVEDO Address: Home [address] [place], [place] [address] [address] [place] Name: ALICIA ACEVEDO Address: Home [address] [place], [place] [address] [address] [place] Name: ALICIA ACEVEDO Address: Home [address] [place], [place] [address] [place] [id number] [place] Name: ALICIA ACEVEDO Address: Home [address] [place], [place] [address] [place] [id number] Name: ALICIA ACEVEDO Address: Home [address] [place] [phone] [place] Address: Temporary [address] [place], [place] [id number] Name: ALICIA ACEVEDO Address: Home [address] [place] [phone] [place] Address: Temporary [address] [place], [place] [id number] Name: KENNETH KOEHLER Address: Home [address] [place] [id number] INFORMATION SOURCE (unrecogn ized section and content) DATE CREATED AUTHOR AUTHOR'S ORGANIZ ATION 08/17/2022 [facility] DATE CREATED AUTHOR AUTHOR'S ORGANIZ ATION 10/09/2022 [facility] DATE CREATED AUTHOR AUTHOR'S ORGANIZ ATION 03/15/2023 [facility] Source Comments (unrecognize d section and content) In the event this informatio n is protected by the Federal Confidentiality of Alcohol and Drug Abuse Patient Records regulations: The Federal rules restrict any use of the information to criminally investigate or prosecute any alcohol or drug abuse patient.[facility] Reason for Visit (unrecogniz ed section and content) Reason Comments Follow-up Med check Sinus Problem Care Teams (unrecognized sec tion and content) 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 This clinical summary was aggregated from multiple sources. Caution should be exercised in using it in the provision of clinical care. This summary normalizes information from multiple sources, and as a consequence, information in this document may materially change the coding, format and clinical context of patient data. In addition, data may be omitted in some cases. CLINICAL DECISIONS SHOULD BE BASED ON THE PRIMARY CLINICAL RECORDS. [facility]. provides no warranty or guarantee of the accuracy or completeness of information in this document.
[2023-06-16 10:01] LABS: Absolute Lymphocyte Count 1.87 X10^3/uL (0.83-4.51); Absolute Neutrophil Count 6.1 X10^3/uL (2.0-7.7); Basophil# 0.03 X10^3/uL; Basophil% 0.3 % (0-1); Eosinophil# 0.07 X10^3/uL; Eosinophils% 0.8 % (0-5); Hematocrit 35.8 % (37-47); Hemoglobin 11.4 g/dL (12.0-15.0); Lymphocyte # 1.87 X10^3/ul (0.83-4.51); Lymphocyte % 21.7 % (19-41); Mean Corp Hgb Conc 31.8 g/dL (32-36); Mean Corpuscular Hgb 26.3 pg (27.0-32.0); Mean Corpuscular Volume 82.5 fL (81-99); Mean Platelet Vol. 9.3 fl (6.2-12.0); Monocyte# 0.51 X10^3/uL; Monocyte% 5.9 % (0-10); NRBC Flagged by Analyzer 0 % (0-5); Neutrophil # 6.05 X10^3/uL (2.7-7.7); Neutrophil % 70.5 % (47-70); Platelet Count 200 K/mm3 (150-450); RBC Distribution Width CV 15.3 % (11.6-14.6); RBC Distribution Width SD 46.1 fl (35.1-43.9); Red Blood Count 4.34 M/mm3 (4.2-5.4); White Blood Count 8.6 K/mm3 (4.4-11.0)
== END | disposition home or self-care (01) ==
LOC: PAVLAB 09:23
PROVIDERS: PCP Family Medicine; Referring Provider Obstetrics & Gynecology; Visit Provider Obstetrics & Gynecology
DX: O99.019 Anemia complicating pregnancy, unspecified trimester (principal); Z3A.00 Weeks of gestation of pregnancy not specified
CPT/HCPCS: 36415; 85025

== ENCOUNTER → 2023-06-18 | Outpatient (CLI) | payer MEDICAID, SELFPAY ==
--- OUTSIDE RECORDS SUMMARY | 2023-06-18 11:46 | XMS RPT_ITS | CCD ---
Author Name Unknown Address [address] [place] [address] Organization [facility] Care Team Providers Care Nitro Man Name Role Phone ULI ALVAREZ MD Primary Care Physician [phone] MEI Attending Unavaila ULI Douglas Primary Care Unavailable Yusuf Gan Primary Care Provider YUSUF GAN Primary Care Unavailable Yusuf Gan DO Primary Care Provider [phone] YUSUF GAN Attending Unavailable YUSUF GAN Primary [...] Drug Class(es) Dates Sig (Normalized) Sig (Original) [id number] 200 actuat albuterol 0.09 mg/actuat metered dose [...] 16:06-0400 Body height 170.2 cm Yusuf Gan [employer] Work Phone: [facility] 10-07-2022 16:06-0400 Body mass index (BMI) [Ratio] 40.1 kg/m2 Yusuf Bettencourtezequielyunier [employer] Work Phone: [facility] 10-07-2022 16:06-0400 Body temperature 97.11 [degF] Yusuf Bettencourtezequielyunier [employer] Work Phone: [facility] 10-07-2022 16:06-0400 Body weight 116.12 kg Yusuf Bettencourtremberto [employer] Work Phone: [facility] 10-07-2022 16:06-0400 Diastolic blood pressure 69 mm[Hg] Yusuf Bettencourtremberto [employer] Work Phone: [facility] 10-07-2022 16:06-0400 Heart rate 72 /min Yusuf Gan DO Work Phone: [facility] 10-07-2022 16:06-0400 SaO2% (BldA) [Mass fraction] 99 % Yusuf Gan DO Work Phone: [facility] 10-07-2022 16:06-0400 Systolic blood pressure 108 mm[Hg] Yusuf Gan DO Work Phone: [facility] 08-16-2022 07:41-0500 Body temperature 98.1 [degF] Krislyn Aberegg PA Work Phone: [facility] 08-16-2022 07:41-0500 Body weight 112.58 kg Krislyn Aberegg PA Work Phone: [facility] 08-16-2022 07:41-0500 Diastolic blood pressure 76 mm[Hg] Krislyn Aberegg PA Work Phone: [facility] 08-16-2022 07:41-0500 Heart rate 111 /min Krislyn Aberegg PA Work Phone: [facility] 08-16-2022 07:41-0500 Respiratory rate 18 /min Krislyn Aberegg PA Work Phone: [facility] 08-16-2022 07:41-0500 SaO2% (BldA) [Mass fraction] 99 % Krislyn Aberegg PA Work Phone: [facility] 08-16-2022 07:41-0500 Systolic blood pressure 132 mm[Hg] Krislyn Aberegg PA Work Phone: [facility] 04-02-2022 21:02-0400 Body height 170.[address] HAMIDA [facility]ASTON [facility] 04-02-2022 21:02-0400 Body temperature 98.78 [degF] DR HAMIDA GASTON MD [facility] 04-02-2022 21:02-0400 Body weight 113.[address] HAMIDA GASTON [facility] 04-02-2022 21:02-0400 Diastolic blood pressure 84 mm[Hg] DR HAMIDA GASTON [facility] 04-02-2022 21:02-0400 Heart rate 82 /min DR HAMIDA GASTON MD [facility] 04-02-2022 21:02-0400 Respiratory rate 18 /min DR HAMIDA GASTON MD [facility] 04-02-2022 21:02-0400 Systolic blood pressure 131 mm[Hg] DR HAMIDA GASTON [facility] Encounters Encounter Date Encounter Type Care Provider Facility Start: 03-10-2023 End: 03-10-2023 ambulatory PRIMARY CARE [facility] Start: 10-07-2022 End: 10-07-2022 ambulatory YUSUF GAN [facility] Start: 10-07-2022 End: 10-07-2022 Office outpatient visit 15 minutes Yusuf Gan DO Work Phone: [facility] Procedures Date Procedure Procedure Detail Performing Clinician Start: 08-16-2022 STREP A MOLECULAR (POC) Estevan Medina PA Work Phone: None (qualifier value) DR ROSALIO GASTON MD Plan of Treatment Date Care Activity Detail Author Start: 2046 Zoster Vaccines (1 of 2) Zoste r Vaccines (1 of 2) [facility] Start: 06-17-2032 DTaP/Tdap/Td Vaccine s (9 - Td or Tdap) DTaP/Tdap/Td Vaccines (9 - Td or Tdap) [facility] Start: 04-09-2023 End: 04-09-2023 Patient encounter procedure 04/09/2023 Office Visit Family Medicine Yusuf Gan DO [address] [place] [id number] [facility] Start: 02-07-2023 Influenza vaccination Influenz a Vaccine (Season Ended) [facility] Start: 06-09-2022 DEPRESSION ASSESSMENT DEPRESSION ASS ESSMENT [facility] Start: 02-07-2022 Influenza vaccination INFLUENZA (#1) [facility] Start: 2017 PAP TESTING PAP TESTING [facility] Start: 2017 Screening for malign ant neoplasm of cervix Pap Smear [facility] Start: 2015 Urine microalbumin profile DTAP,TDAP,TD (1 - Tdap) [facility] Start: 2014 HEPATITIS C SCREENING HEPATITIS C [facility] Start: 2014 Hepatitis C screening Hepatitis C [facility] Start: 2014 HIV SCREENING HIV SCREENING [facility] Start: 2010 PEDS TO ADULT TRANSI TION ANNUAL ASSESSMENT PEDS TO ADULT TRANSITION ANNUAL ASSESSMENT [facility] Start: 2008 PEDS TO ADULT TRANSI TION INITIAL DISCUSSION PEDS TO ADULT TRANSITION INITIAL DISCUSSION [facility] Start: 2007 HPV VACCINE (1 - 2-d ose series) HPV VACCINE (1 - 2-dose series) [facility] Start: 02-16-2002 Varicella vaccination Varicell a Vaccines (1 of 2 - 2-dose childhood series) [facility] Start: 01-10-1997 COVID-19 VACCINE (#1) COVID-19 VACCI NE (#1) [facility] Start: 1996 HEPATITIS B (1 of 3 - 3-dose series) HEPATITIS B (1 of 3 - 3-dose series) [facility] Start: 1996 HIV screening HIV Screening [facility] Immunizations Immunization Date Immunization Notes Care Provider Fa cility 06-17-2022 tetanus toxoid, redu tiffanie diphtheria toxoid, and acellular pertussis vaccine, adsorbed Yusuf Gan DO Work Phone: [facility] 04-16-2018 tetanus toxoid, redu tiffanie diphtheria toxoid, and acellular pertussis vaccine, adsorbed Yusuf Gan DO Work Phone: [facility] 07-30-2013 human papilloma viru s vaccine, quadrivalent Yusuf Gan DO Work Phone: [facility] 03-29-2013 human papilloma viru s vaccine, quadrivalent Yusuf Gan DO Work Phone: [facility] 01-20-2013 HPV, unspecified formulation Yusuf Gan DO Work Phone: [facility] 01-20-2013 meningococcal polysaccharide (groups A, C, Y and W-135) diphtheria toxoid conjugate vaccine (MCV4P) Yusuf Gan DO Work Phone: [facility] 01-20-2013 tetanus toxoid, redu tiffanie diphtheria toxoid, and acellular pertussis vaccine, adsorbed Yusuf Gan DO Work Phone: [facility] 01-19-2002 diphtheria, tetanus toxoids and acellular pertussis vaccine, unspecified formulation Yusuf Gan DO Work Phone: [facility] 01-19-2002 measles, mumps and r ubella virus vaccine Yusuf Gan DO Work Phone: [facility] 01-19-2002 poliovirus vaccine, inactivated Yusuf Gan DO Work Phone: [facility] 11-08-1997 diphtheria, tetanus toxoids and acellular pertussis vaccine, unspecified formulation Yusuf Gan DO Work Phone: [facility] 11-08-1997 haemophilus influenz ae type b vaccine, PRP-T conjugate Yusuf Gan DO Work Phone: [facility] 11-08-1997 measles, mumps and r ubella virus vaccine Yusuf Gan DO Work Phone: [facility] 04-04-1997 hepatitis B vaccine, pediatric or pediatric/adolescent dosage Yusuf Gan DO Work Phone: [facility] 04-04-1997 trivalent poliovirus vaccine, live, oral Yusuf Gan DO Work Phone: [facility] 01-10-1997 diphtheria, tetanus toxoids and pertussis vaccine Yusuf Gan DO Work Phone: [facility] 01-10-1997 haemophilus influenz ae type b vaccine, PRP-T conjugate Yusuf Gan DO Work Phone: [facility] 1996 diphtheria, tetanus toxoids and pertussis vaccine Yusuf Rutlla DO Work Phone: [facility] 1996 haemophilus influenz ae type b vaccine, PRP-T conjugate Yusuf Gan DO Work Phone: [facility] 1996 trivalent poliovirus vaccine, live, oral Yusuf Jimeneza DO Work Phone: [facility] 1996 diphtheria, tetanus toxoids and pertussis vaccine Yusuf Bettencourtlla DO Work Phone: [facility] 1996 haemophilus influenz ae type b vaccine, PRP-T conjugate Yusuf Gan DO Work Phone: [facility] 1996 hepatitis B vaccine, pediatric or pediatric/adolescent dosage Yusuf Gan DO Work Phone: [facility] 1996 trivalent poliovirus vaccine, live, oral Yusuf Gan DO Work Phone: [facility] 1996 hepatitis B vaccine, pediatric or pediatric/adolescent dosage Yusuf Bettencourtlla DO Work Phone: [facility] Payers Date Payer Category Payer Medicaid [id number] 2022 Unknown [id number] 1996 Unknown [id number] 1996 Unknown [id number] Social History Date Type Detail Facility Start: 08-16-2022 Tobacco smoking status Never s moked tobacco (finding) [facility] Start: 1996 Sex Assigned At Female [facility] Start: 08-16-2022 Tobacco use and exposure Smokeless tobacco non-user [facility] Start: 1996 Sex Assigned At Not on file [facility] Tobacco smoking stat us [place]IS Ex-smoker [facility] End: 06-13-2020 History of tobacco use Current smoker [facility] End: 06-13-2020 History of tobacco use Cigarette Smoker [facility] Start: 10-07-2022 Alcohol intake Current drinke r of alcohol (finding) [facility] Start: 09-27-2022 End: 10-07-2022 Exposure to SARS-CoV-2 (event) Not sure [facility] Functional Status Date Assessment Result Facility 04-02-2022 Functional Status Independent [facility] Mental Status Date Assessment Result Facility 04-02-2022 Mental Status Orientation Oriented x 4 [facility] Clinical Notes 04-02-2022 to 10-07-2022 Yusuf Gan DO - 10/07/2022 4:00 PM EDTPatient KARINA Flores - 08/16/2022 7:49 AM EST Note Date & Type Note Facility 10-07-2022 History of Present illness Narrative Images from the original note were not included. [facility] [address] [place] [id number] Visit type: Established Patient Reason for Visit: [...] note they also have custody of a1-year-old boy who was the son of her [...] She does feel the Lexapro is helpful. 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 documented in this encounter [facility] 08-16-2022 Note HNO ID: [id number] Author: KARINA Lim Service: ? 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 Subjective Shakira Izquierdo is a 27 year old female. HPI 27-year-old female presents for sore throat and congestion. Patient has had a sore throat for the past 2 to 3 days. She has had congestion and postnasal drainage. 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 KARINA Lim [facility] 08-16-2022 Instructions KARINA Lim - 08/16/2022 [...] urine. Chest pain. documented in this encounter [facility] 08-16-2022 History of Present illness Narrative This note was created using Asset [employer] Services[employer]. Subjective Shakira Izquierdo is a 27 year old female. HPI 27-year-old female presents for sore throat and congestion. Patient has had a sore throat for the past 2 to 3 days. She has had congestion and postnasal drainage. 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 KARINA Lim documented in this encounter [facility] 04-04-2022 Note . MICRO - Microbiology PROCEDURE: Urine Culture [*1] SOURCE: Urine BODY SITE: COLLECTED DATE/TIME: 04/02/2022 21:01 EDT RECEIVED DATE/TIME: 04/03/2022 14:26 EDT START DATE/TIME: 04/03/2022 14:26 EDT FREE TEXT SOURCE: FINAL REPORTS Final Report [] Verified Date/Time/Personnel: 04/04/2022 14:22 EDT 10,000 - 50,000 cfu/ml Mixed growth consistent with normal urogenital cherie. Performing Locations *1: This test was performed at: [facility], [address] [place] [address], [address] , [facility] ([place]) 04-02-2022 Hospital Discharge instructions Patient Education 04/02/2022 [...] Hold for 2 seconds, then slowly lower. 1014-[address] [employer] [place] [address]. All rights reserved. This information is not [...] are taking other medicines. You may use ghor-eea-jlofdpc medicines such as acetaminophen, ibuprofen, or naprosyn [...] Chills Burning or pain when passing urine 9583-[address] [employer] [place] [address]. All rights reserved. This information is not intended as a substitute for professional medical care. Always follow your healthcare professional's instructions. Follow Up Care 04/02/2022 20:49:18 With:ULI ALVAREZ MD Address: [facility] [address] [place] [address]- When:2-4 days Comments:If no improvement [facility] 04-02-2022 Note Discharge Instructions Thank you for allowing [facility] to assist you with your healthcare needs. [...] 2-4 days Why: If no improvement Where: [id number] [place] [address]- Allergies NKA Medications Please ask your primary [...] may report side effects to FDA at 6-805-UEU-2766. What other drugs will affect tizanidine? Taking [...] drugs may affect tizanidine, including prescription and iwmx-cll-bgryzip medicines, vitamins, and herbal products. Not all [...] to ensure that the information provided by [employer]. ('Mult[employer]') is accurate, up-to-date, and complete, but no guarantee is made to that effect. Drug information contained herein may be time sensitive. [employer] information has been compiled for use by healthcare practitioners and consumers in the [place] and therefore [employer] does not warrant that uses outside of the [place] are appropriate, unless specifically indicated otherwise. [employer] drug information does not endorse drugs, diagnose patients or recommend therapy. [employer] drug information is an informational resource designed [...] effective or appropriate for any given patient. [employer] does not assume any responsibility for any aspect of healthcare administered with the aid of information [employer] provides. The information contained herein is not intended to cover all possible uses, directions, precautions, warnings, drug interactions, allergic reactions, or adverse effects. If you have questions about the drugs you are taking, check with your doctor, nurse or pharmacist. Copyright 9634-3229 [employer]. Version: 4.01. Revision Date: 08/14/2020. ibuprofen (EYE [...] may report side effects to FDA at 4-950-LOX-2615. What other drugs will affect ibuprofen? Ask [...] drugs may affect ibuprofen, including prescription and ajbu-vtj-vjozihk medicines, vitamins, and herbal products. Not all [...] to ensure that the information provided by [employer]. ('Multum') is accurate, up-to-date, and complete, but no guarantee is made to that effect. Drug information contained herein may be time sensitive. [employer] information has been compiled for use by healthcare practitioners and consumers in the [place] and therefore [employer] does not warrant that uses outside of the [place] are appropriate, unless specifically indicated otherwise. [employer] drug information does not endorse drugs, diagnose patients or recommend therapy. [employer] drug information is an informational resource designed [...] effective or appropriate for any given patient. [employer] does not assume any responsibility for any aspect of healthcare administered with the aid of information [employer] provides. The information contained herein is not intended to cover all possible uses, directions, precautions, warnings, drug interactions, allergic reactions, or adverse effects. If you have questions about the drugs you are taking, check with your doctor, nurse or pharmacist. Copyright 6562-8563 [employer]. Version: 22.01. Revision Date: 05/03/2020. Education Materials [...] Hold for 2 seconds, then slowly lower. 7680-[address] The everbill[address] [place] [address], [place] [address]. All rights reserved. This information is not [...] are taking other medicines. You may use sagf-jbe-cgdgiap medicines such as acetaminophen, ibuprofen, or naprosyn [...] Chills Burning or pain when passing urine 8600-6494 The ever[employer]. [address] [place] [address]. All rights reserved. This information is not intended as a substitute for professional medical care. Always follow your healthcare professional's instructions. Additional Information VACCINATE! IT SAVES LIVES! Members of the community who have not yet received the COVID-19 vaccine and would like to receive it can visit one of [facility] vaccine clinics. There are many vaccine clinic locations within the [facility]. For locations and available times, please visit [email or web address]. It is important to note that some COVID mobile vaccine clinics are held outdoors and may be canceled in rainy or stormy conditions. To learn more about pediatric vaccinations (ages 5-11), we invite you to visit the [facility] webpage. [email or web address] To learn more about the COVID-19 vaccine, we invite you to visit the [facility] website for a list of frequently asked questions. [email or web address] quently_[email or web address].pdf [facility] Patient Portal Access Instructions: Stay connected with your healthcare team and access your personal medical information anytime with the [employer] Patient Portal. If you would like a full copy of your medical records please contact the [facility] Medical Records Department Friday through Friday between 8a.m. and 4:30p.m. Please follow the directions below to access the portal: 1.Access the email account you provided upon registration to the [facility].2.Look for an invitation email from [facility].3.Open the email and access the invitation link: Accept Invitation to [employer]4.Fill in the required cantrell to create your account. Sign into www.[employer] with your username and password that you [...] you will allow to register on the [employer] Patient Portal for access to your information. You can also access the [employer] Patient Portal on the [employer] stefano. Simply click on Health Records under [...] Call your local pharmacy or go to [email or web address] and [email or web address] to find one close to you.3.Make use of household items: Use cat litter or old coffee grounds to dispose medications if other options are not available. Mix your drugs with these household products, seal them in an airtight container and throw it into the garbage. Call [facility]: [phone] to be sure your drugs can be [...] aware that I should contact my doctor. 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 Narrative No data available for this section [facility] Summary Purpose Family History No Family [...] Member Role: Primary Care Physician Address: Address: [facility] [address] [place] [address]- Name: HAMIDA GASTON MD Position: ED Physician Member Role: ED Physician Address: Address: [address] [place] [address] Name: Kerrie Gaston RN Position: AO RN Member Role: RN Care Team Related Persons Name: ALICIA ACEVEDO Address: Home [address] [place] [address] [place] Name: ALICIA ACEVEDO Address: Home [address] [place] [address] [place] Name: ALICIA ACEVEDO Address: Home [address] [place] [address] [place] Name: ALICIA ACEVEDO Address: Home [address] [place] [address] [place] Name: ALICIA ACEVEDO Address: Home [address] [place] [address] [place] Name: ALICIA ACEVEDO Address: Home [address] [place], [place] [address] [place] [address] Name: ALICIA ACEVEDO Address: Home [address] [place], [place] [address] [place] [address] [place] Name: ALICIA ACEVEDO Address: Home [address] [place], [place] [address] [address] [place] Name: ALICIA ACEVEDO Address: Home [address] [place], [place] [address] [place] [address] [place] Name: ALICIA ACEVEDO Address: Home [address] [place], [place] [address] [place] [id number] Name: ALICIA ACEVEDO Address: Home [address] [place] [phone] [place] Address: Temporary [address] [place], [place] [id number] Name: ALICIA ACEVEDO Address: Home [address] [place] [phone] [place] Address: Temporary [address] [place], [place] [id number] Name: KENNETH KOEHLER Address: Home [address] [id number] INFORMATION SOURCE (unrecogn ized section and content) DATE CREATED AUTHOR AUTHOR'S ORGANIZ ATION 08/17/2022 [facility] DATE CREATED AUTHOR AUTHOR'S ORGANIZ ATION 10/09/2022 [facility] DATE CREATED AUTHOR AUTHOR'S ORGANIZ ATION 03/15/2023 [facility] Source Comments (unrecognize d section and content) In the event this informatio n is protected by the Federal Confidentiality of Alcohol and Drug Abuse Patient Records regulations: The Federal rules restrict any use of the information to criminally investigate or prosecute any alcohol or drug abuse patient.[facility] Reason for Visit (unrecogniz ed section and content) Reason Comments Follow-up Med check Sinus Problem Care Teams (unrecognized sec tion and content) Nitro Man Relationship Specialty Start Date End Date Yusuf Gan Kadie, DO [address] [place] [address] PCP - General 12/22/20 FOR RECORDS PERTAINING [...] BE BASED ON THE PRIMARY CLINICAL RECORDS. [facility]. provides no warranty or guarantee of the accuracy or completeness of information in this document.
== END | disposition home or self-care (01) ==
LOC: LABSPEC 11:20
PROVIDERS: PCP Family Medicine; Referring Provider Registered Nurse; Visit Provider Registered Nurse
DX: O26.899 Other specified pregnancy related conditions, unspecified trimester (principal); N89.8 Other specified noninflammatory disorders of vagina; O99.891 Other specified diseases and conditions complicating pregnancy; Z3A.00 Weeks of gestation of pregnancy not specified
CPT/HCPCS: 87070; 87205

== ENCOUNTER 2023-06-27 17:45 | Outpatient (CLI) | payer MEDICAID, SELFPAY ==
--- OUTSIDE RECORDS SUMMARY | 2023-06-27 17:54 | XMS RPT_ITS | CCD ---
Author Name Unknown Address [address] [place] [address] Organization [facility] Care Team Providers Care Clinical Safety Specialist Name Role Phone ULI ALVAREZ MD Primary Care Physician [phone] MEI Attending Unavaila ULI Douglas Primary Care Unavailable Yusuf Gan Primary Care Provider [phone] YUSUF GAN Primary Care Unavailable Yusuf Gan [...] Drug Class(es) Dates Sig (Normalized) Sig (Original) [id number] 200 actuat albuterol 0.09 mg/actuat metered dose [...] 16:06-0400 Body height 170.2 cm Yusuf Gan [employer] Work Phone: [facility] 10-07-2022 16:06-0400 Body mass index (BMI) [Ratio] 40.1 kg/m2 Yusuf Bettencourtezequielyunier [employer] Work Phone: [facility] 10-07-2022 16:06-0400 Body temperature 97.11 [degF] Yusuf Bettencourtezequielyunier [employer] Work Phone: [facility] 10-07-2022 16:06-0400 Body weight 116.12 kg Yusuf Bettencourtremberto [employer] Work Phone: [facility] 10-07-2022 16:06-0400 Diastolic blood pressure 69 mm[Hg] Yusuf Bettencourtremberto [employer] Work Phone: [facility] 10-07-2022 16:06-0400 Heart rate 72 /min Yusuf Gan DO Work Phone: [facility] 10-07-2022 16:06-0400 SaO2% (BldA) [Mass fraction] 99 % Yusuf Gan DO Work Phone: [facility] 10-07-2022 16:06-0400 Systolic blood pressure 108 mm[Hg] Yusuf Gan DO Work Phone: [facility] 08-16-2022 07:41-0500 Body temperature 98.1 [degF] Krislyn Aberegg PA Work Phone: [facility] 08-16-2022 07:41-0500 Body weight 112.58 kg Krislyn Aberegg PA Work Phone: [facility] 08-16-2022 07:41-0500 Diastolic blood pressure 76 mm[Hg] Krislyn Aberegg PA Work Phone: [facility] 08-16-2022 07:41-0500 Heart rate 111 /min Krislyn Aberegg PA Work Phone: [facility] 08-16-2022 07:41-0500 Respiratory rate 18 /min Krislyn Aberegg PA Work Phone: [facility] 08-16-2022 07:41-0500 SaO2% (BldA) [Mass fraction] 99 % Krislyn Aberegg PA Work Phone: [facility] 08-16-2022 07:41-0500 Systolic blood pressure 132 mm[Hg] Krislyn Aberegg PA Work Phone: [facility] 04-02-2022 21:02-0400 Body height 170.[address] HAMIDA GASTON MD [facility] 04-02-2022 21:02-0400 Body temperature 98.78 [degF] DR HAMIDA GASTON MD [facility] 04-02-2022 21:02-0400 Body weight 113.[address] HAMIDA GASTON MD [facility] 04-02-2022 21:02-0400 Diastolic blood pressure 84 mm[Hg] DR HAMIDA GASTON MD [facility] 04-02-2022 21:02-0400 Heart rate 82 /min DR HAMIDA GASTON MD [facility] 04-02-2022 21:02-0400 Respiratory rate 18 /min DR HAMIDA GASTON MD [facility] 04-02-2022 21:02-0400 Systolic blood pressure 131 mm[Hg] DR HAMIDA GASTON MD [facility] Encounters Encounter Date Encounter Type Care Provider Facility Start: 03-10-2023 End: 03-10-2023 ambulatory PRIMARY CARE [facility] Start: 10-07-2022 End: 10-07-2022 ambulatory YUSUF GAN [facility] Start: 10-07-2022 End: 10-07-2022 Office outpatient visit 15 minutes Yusuf Gan DO Work Phone: [facility] Family Medicine Procedures Date Procedure Procedure Detail Performing Clinician Start: 08-16-2022 STREP A MOLECULAR (POC) Estevan Medina PA Work Phone: None (qualifier value) DR ROSALIO GASTON MD Plan of Treatment Date Care Activity Detail Author Start: 2046 Zoster Vaccines (1 of 2) Zoste r Vaccines (1 of 2) [facility] Start: 06-17-2032 DTaP/Tdap/Td Vaccine s (9 - Td or Tdap) DTaP/Tdap/Td Vaccines (9 - Td or Tdap) [facility] Start: 04-09-2023 End: 04-09-2023 Patient encounter procedure 04/09/2023 Office Visit Family Medicine Yusuf Gan DO [address] [place] [id number] [facility] Start: 02-07-2023 Influenza vaccination Influenz a Vaccine (Season Ended) [facility] Start: 06-09-2022 DEPRESSION ASSESSMENT DEPRESSION ASS ESSMENT [facility] Start: 02-07-2022 Influenza vaccination INFLUENZA (#1) [facility] Start: 2017 PAP TESTING PAP TESTING [facility] Start: 2017 Screening for malign ant neoplasm of cervix Pap Smear [facility] Start: 2015 Urine microalbumin profile DTAP,TDAP,TD (1 - Tdap) [facility] Start: 2014 HEPATITIS C SCREENING HEPATITIS C [facility] Start: 2014 Hepatitis C screening Hepatitis C [facility] Start: 2014 HIV SCREENING HIV SCREENING [facility] Start: 2010 PEDS TO ADULT TRANSI TION ANNUAL ASSESSMENT PEDS TO ADULT TRANSITION ANNUAL ASSESSMENT [facility] Start: 2008 PEDS TO ADULT TRANSI TION INITIAL DISCUSSION PEDS TO ADULT TRANSITION INITIAL DISCUSSION [facility] Start: 2007 HPV VACCINE (1 - 2-d ose series) HPV VACCINE (1 - 2-dose series) [facility] Start: 02-16-2002 Varicella vaccination Varicell a Vaccines (1 of 2 - 2-dose childhood series) [facility] Start: 01-10-1997 COVID-19 VACCINE (#1) COVID-19 VACCI NE (#1) [facility] Start: 1996 HEPATITIS B (1 of 3 - 3-dose series) HEPATITIS B (1 of 3 - 3-dose series) [facility] Start: 1996 HIV screening HIV Screening [facility] Immunizations Immunization Date Immunization Notes Care Provider Fa cility 06-17-2022 tetanus toxoid, redu tiffanie diphtheria toxoid, and acellular pertussis vaccine, adsorbed Yusuf Gan DO Work Phone: [facility] 04-16-2018 tetanus toxoid, redu tiffanie diphtheria toxoid, and acellular pertussis vaccine, adsorbed Yusuf Gan DO Work Phone: [facility] 07-30-2013 human papilloma viru s vaccine, quadrivalent Yusuf Gan DO Work Phone: [facility] 03-29-2013 human papilloma viru s vaccine, quadrivalent Yusuf Gan DO Work Phone: [facility] 01-20-2013 HPV, unspecified formulation Yusuf Gan DO Work Phone: [facility] 01-20-2013 meningococcal polysaccharide (groups A, C, Y and W-135) diphtheria toxoid conjugate vaccine (MCV4P) Yusuf Gan DO Work Phone: [facility] 01-20-2013 tetanus toxoid, redu tiffanie diphtheria toxoid, and acellular pertussis vaccine, adsorbed Yusuf Gan DO Work Phone: [facility] 01-19-2002 diphtheria, tetanus toxoids and acellular pertussis vaccine, unspecified formulation Yusuf Gan DO Work Phone: [facility] 01-19-2002 measles, mumps and r ubella virus vaccine Yusuf Gan DO Work Phone: [facility] 01-19-2002 poliovirus vaccine, inactivated Yusuf Gan DO Work Phone: [facility] 11-08-1997 diphtheria, tetanus toxoids and acellular pertussis vaccine, unspecified formulation Yusuf Gan DO Work Phone: [facility] 11-08-1997 haemophilus influenz ae type b vaccine, PRP-T conjugate Yusuf Gan DO Work Phone: [facility] 11-08-1997 measles, mumps and r ubella virus vaccine Yusuf Gan DO Work Phone: [facility] 04-04-1997 hepatitis B vaccine, pediatric or pediatric/adolescent dosage Yusuf Gan DO Work Phone: [facility] 04-04-1997 trivalent poliovirus vaccine, live, oral Yusuf Gan DO Work Phone: [facility] 01-10-1997 diphtheria, tetanus toxoids and pertussis vaccine Yusuf Gan DO Work Phone: [facility] 01-10-1997 haemophilus influenz ae type b vaccine, PRP-T conjugate Yusuf Gan DO Work Phone: [facility] 1996 diphtheria, tetanus toxoids and pertussis vaccine Yusuf Rutlla DO Work Phone: [facility] 1996 haemophilus influenz ae type b vaccine, PRP-T conjugate Yusuf Gan DO Work Phone: [facility] 1996 trivalent poliovirus vaccine, live, oral Yusuf Jimeneza DO Work Phone: [facility] 1996 diphtheria, tetanus toxoids and pertussis vaccine Yusuf Bettencourtlla DO Work Phone: [facility] 1996 haemophilus influenz ae type b vaccine, PRP-T conjugate Yusuf Gan DO Work Phone: [facility] 1996 hepatitis B vaccine, pediatric or pediatric/adolescent dosage Yusuf Gan DO Work Phone: [facility] 1996 trivalent poliovirus vaccine, live, oral Yusuf Gan DO Work Phone: [facility] 1996 hepatitis B vaccine, pediatric or pediatric/adolescent dosage Yusuf Bettencourtlla DO Work Phone: [facility] Payers Date Payer Category Payer Medicaid [id number] 2022 Unknown [id number] 1996 Unknown [id number] 1996 Unknown [id number] Social History Date Type Detail Facility Start: 08-16-2022 Tobacco smoking status Never s moked tobacco (finding) [facility] Start: 1996 Sex Assigned At Female A [facility] Start: 08-16-2022 Tobacco use and exposure Smokeless tobacco non-user [facility] Start: 1996 Sex Assigned At Not on file C [facility] Tobacco smoking stat us WVIS Ex-smoker [facility] End: 06-13-2020 History of tobacco use Current smoker [facility] End: 06-13-2020 History of tobacco use Cigarette Smoker [facility] Start: 10-07-2022 Alcohol intake Current drinke r of alcohol (finding) [facility] Start: 09-27-2022 End: 10-07-2022 Exposure to SARS-CoV-2 (event) Not sure [facility] Functional Status Date Assessment Result Facility 04-02-2022 Functional Status Independent [facility] Mental Status Date Assessment Result Facility 04-02-2022 Mental Status Orientation Oriented x 4 [facility] Clinical Notes 04-02-2022 to 10-07-2022 Yusuf Gan DO - 10/07/2022 4:00 PM EDTPatient KARINA Flores - 08/16/2022 7:49 AM EST Note Date & Type Note Facility 10-07-2022 History of Present illness Narrative Images from the original note were not included. [facility] [address] [place] [id number] Visit type: Established Patient Reason for Visit: [...] She does feel the Lexapro is helpful. [employer] exams up-to-date No Known Allergies Current Outpatient [...] and upbeat today. documented in this encounter [facility] 08-16-2022 Note HNO ID: [id number] Author: KARINA Lim Service: ? Author Type: Physician Housing Coordinator Type: Progress Notes Filed: 08/16/2022 8:10 AM Note Text: This note was created using [employer]. Subjective Shakira Izquierdo is a 27 year old female. HPI 27-year-old female presents for sore throat and congestion. Patient has had a sore throat for the past 2 to 3 days. She has had congestion and postnasal drainage. 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 KARINA Lim [facility] 08-16-2022 Instructions KARINA Lim - 08/16/2022 [...] urine. Chest pain. documented in this encounter [facility] 08-16-2022 History of Present illness Narrative This note was created using [employer]. Subjective Shakira Izquierdo is a 27 year old female. HPI 27-year-old female presents for sore throat and congestion. Patient has had a sore throat for the past 2 to 3 days. She has had congestion and postnasal drainage. 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 KARINA Lim documented in this encounter [facility] 04-04-2022 Note . MICRO - Microbiology PROCEDURE: Urine Culture [*1] SOURCE: Urine BODY SITE: COLLECTED DATE/TIME: 04/02/2022 21:01 EDT RECEIVED DATE/TIME: 04/03/2022 14:26 EDT START DATE/TIME: 04/03/2022 14:26 EDT FREE TEXT SOURCE: FINAL REPORTS Final Report [] Verified Date/Time/Personnel: 04/04/2022 14:22 EDT 10,000 - 50,000 cfu/ml Mixed growth consistent with normal urogenital cherie. Performing Locations *1: This test was performed at: [facility], [address] [place] [address], [phone]- , [facility] ([place]) 04-02-2022 Hospital Discharge instructions Patient Education 04/02/2022 [...] Hold for 2 seconds, then slowly lower. 5392-99[address] [employer] [place] [address]. All rights reserved. This information is not [...] are taking other medicines. You may use ahkc-tqi-augzokl medicines such as acetaminophen, ibuprofen, or naprosyn [...] Chills Burning or pain when passing urine 6794-[address] [employer] [address] [place] [address]. All rights reserved. This information is not intended as a substitute for professional medical care. Always follow your healthcare professional's instructions. Follow Up Care 04/02/2022 20:49:18 With:ULI ALVAREZ MD Address: [facility] [address] [place] [address]- When:2-4 days Comments:If no improvement [facility] 04-02-2022 Note Discharge Instructions Thank you for allowing [facility] to assist you with your healthcare needs. [...] 2-4 days Why: If no improvement Where: [id number] [place] [address]- Allergies NKA Medications Please ask your primary [...] may report side effects to FDA at 5-788-PIT-4504. What other drugs will affect tizanidine? Taking [...] drugs may affect tizanidine, including prescription and yayr-elm-oznkggj medicines, vitamins, and herbal products. Not all [...] to ensure that the information provided by [employer]. ('Mult[employer]') is accurate, up-to-date, and complete, but no guarantee is made to that effect. Drug information contained herein may be time sensitive. Ret[employer] information has been compiled for use by healthcare practitioners and consumers in the [place] and therefore [employer] does not warrant that uses outside of the [place] are appropriate, unless specifically indicated otherwise. Flat.tos drug information does not endorse drugs, diagnose patients or recommend therapy. SavingStar drug information is an informational resource designed [...] effective or appropriate for any given patient. [employer] does not assume any responsibility for any aspect of healthcare administered with the aid of information [employer] provides. The information contained herein is not intended to cover all possible uses, directions, precautions, warnings, drug interactions, allergic reactions, or adverse effects. If you have questions about the drugs you are taking, check with your doctor, nurse or pharmacist. Copyright 6498-8097 [employer]. Version: 4.01. Revision Date: 08/14/2020. ibuprofen (EYE [...] may report side effects to FDA at 9-259-LKN-4836. What other drugs will affect ibuprofen? Ask [...] drugs may affect ibuprofen, including prescription and uycs-poz-sntjqgb medicines, vitamins, and herbal products. Not all [...] to ensure that the information provided by [employer]. ('[employer]') is accurate, up-to-date, and complete, but no guarantee is made to that effect. Drug information contained herein may be time sensitive. [employer] information has been compiled for use by healthcare practitioners and consumers in the [place] and therefore [employer] does not warrant that uses outside of the [place] are appropriate, unless specifically indicated otherwise. [employer]os drug information does not endorse drugs, diagnose patients or recommend therapy. [employer]os drug information is an informational resource designed [...] effective or appropriate for any given patient. [employer] does not assume any responsibility for any aspect of healthcare administered with the aid of information [employer] provides. The information contained herein is not intended to cover all possible uses, directions, precautions, warnings, drug interactions, allergic reactions, or adverse effects. If you have questions about the drugs you are taking, check with your doctor, nurse or pharmacist. Copyright 0734-5889 [employer]. Version: 22.01. Revision Date: 05/03/2020. Education Materials [...] Hold for 2 seconds, then slowly lower. 3319-9221 [employer]. [address] [place] [address], [place] [address]. All rights reserved. This information is not [...] are taking other medicines. You may use homp-evn-dwmkpwu medicines such as acetaminophen, ibuprofen, or naprosyn [...] Chills Burning or pain when passing urine 8960-[address] [employer] [address] [place] [address]. All rights reserved. This information is not intended as a substitute for professional medical care. Always follow your healthcare professional's instructions. Additional Information VACCINATE! IT SAVES LIVES! Members of the community who have not yet received the COVID-19 vaccine and would like to receive it can visit one of [facility] vaccine clinics. There are many vaccine clinic locations within the [facility]. For locations and available times, please visit [email or web address]. It is important to note that some COVID mobile vaccine clinics are held outdoors and may be canceled in rainy or stormy conditions. To learn more about pediatric vaccinations (ages 5-11), we invite you to visit the [facility] webpage. [email or web address] To learn more about the COVID-19 vaccine, we invite you to visit the [facility] website for a list of frequently asked questions. [email or web address] [email or web address].pdf [facility] [employer] Patient Portal Access Instructions: Stay connected with your healthcare team and access your personal medical information anytime with the [facility] Patient Portal. If you would like a full copy of your medical records please contact the [facility] Medical Records Department Friday through Friday between 8a.m. and 4:30p.m. Please follow the directions below to access the portal: 1.Access the email account you provided upon registration to the [facility].2.Look for an invitation email from [facility].3.Open the email and access the invitation link: Accept Invitation to [facility]4.Fill in the required cantrell to create your account. Sign into www.[email or web address] with your username and password that you [...] you will allow to register on the [facility] Patient Portal for access to your information. You can also access the [facility] Patient Portal on the [employer] stefano. Simply click on Health Records under [...] Call your local pharmacy or go to [email or web address] to find one close to you.3.Make use of household items: Use cat litter or old coffee grounds to dispose medications if other options are not available. Mix your drugs with these household products, seal them in an airtight container and throw it into the garbage. Call [facility]: [phone] to be sure your drugs can be [...] aware that I should contact my doctor. 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 Signature: Date/Time: Relationship to Patient: ____ Witness Name/Signature: Date/Time: [facility] 04-02-2022 Evaluation + Plan note Diagnostic Tests PendingUrine Culture 04/02/22 [facility] Mild episode of recurrent major depressive disorder (HCC)- Primary Acute non-recurrent frontal sinusitis [facility] Narrative No data available for this section [facility] Summary Purpose Family History No Family History [...] Member Role: Primary Care Physician Address: Address: [facility] [address] [place] [address]- Name: HAMIDA GASTON MD Position: ED Physician Member Role: ED Physician Address: Address: [address] [place] [address] Name: Kerrie Gaston RN Position: AO RN Member Role: RN Care Team Related Persons Name: ALICIA ACEVEDO Address: [address] [place] [address] [place] Name: ALICIA ACEVEDO Address: [address] [place] [address] [place] Name: ALICIA ACEVEDO Address: [address] [place] [address] [place] Name: ALICIA ACEVEDO Address: [address] [place] [address] [place] Name: ALICIA ACEVEDO Address: [address] [place] [address] [place] Name: ALICIA ACEVEDO Address: Home [address] [place], [place] [address] [place] [address] Name: ALICIA ACEVEDO Address: Home [address] [place], [place] [address] [place] [address] [place] Name: ALICIA ACEVEDO Address: Home [address] [place], [place] [address] [place] [address] [place] Name: ALICIA ACEVEDO Address: Home [address] [place], [place] [address] [place] [id number] [place] Name: ALICIA ACEVEDO Address: Home [address] [place], [place] [address] [place] [id number] Name: ALICIA ACEVEDO Address: Home [address] [place] [phone] [place] Address: Temporary [address] [place], [place] [id number] Name: ALICIA ACEVEDO Address: Home [address] [place] [phone] [place] Address: Temporary [address] [place], [place] [id number] Name: KENNETH KOEHLER Address: Home [address] [id number] INFORMATION SOURCE (unrecogn ized section and content) DATE CREATED AUTHOR AUTHOR'S ORGANIZ ATION 08/17/2022 [facility] DATE CREATED AUTHOR AUTHOR'S ORGANIZ ATION 10/09/2022 [facility] DATE CREATED AUTHOR AUTHOR'S ORGANIZ ATION 03/15/2023 [facility] Source Comments (unrecognize d section and content) In the event this informatio n is protected by the Federal Confidentiality of Alcohol and Drug Abuse Patient Records regulations: The Federal rules restrict any use of the information to criminally investigate or prosecute any alcohol or drug abuse patient.[facility] Reason for Visit (unrecogniz ed section and content) Reason Comments Follow-up Med check Sinus Problem Care Teams (unrecognized sec tion and content) Clinical Safety Specialist Relationship Specialty Start Date End Date Yusuf Gan Kadie, DO [address] [place] [address] PCP - General 12/22/20 FOR RECORDS PERTAINING [...] ON THE PRIMARY CLINICAL RECORDS. [facility]. provides no warranty or guarantee of the accuracy or completeness of information in this document.
[2023-06-27 18:14] VITALS: PULSE 100; O2SAT 98
[2023-06-27 18:16] VITALS: BMI 42.6
[2023-06-27 18:19] VITALS: BP 125/65; PULSE 98; TEMP 36.9
[2023-06-27 20:10] LABS: Mucous, Urine 0 SEEN /hpf (<or=2+); Red Blood Cells-Urine 0 SEEN /hpf (0-5)
[2023-06-27 20:12] LABS: Color, Urine Yellow (Yellow); Glucose, Dipstick Normal (Normal); Ketone-Dipstick Negative (Negative); Leukocyte Esterase-Dipstick 500 /ul (Negative); Nitrite-Dipstick Negative (Negative); Occult Blood-Urine Negative /ul (Negative); Protein-Dipstick 30 mg/dl (Negative); Specific Gravity, Urine 1.015 (1.002-1.030); Urine Bilirubin Dipstick Negative (Negative); Urine Clarity Sl. Cloudy (Clear); Urine Urobilinogen Normal (Normal); Urine pH 6.5 (5.0 - 8.0)
[2023-06-27 20:18] LABS: Squamous Epithelial Cells - UA 5-10 SEEN /hpf (5-10); White Blood Cells 5-10 SEEN /hpf (0-5)
[2023-06-27 20:19] LABS: Bacteria 1+ /hpf (None Seen)
--- NOTE | 2023-06-28 07:35 | OB.TRI.PN_ITS ---
Progress Notes Date of Service: 06/27/23 Progress Note: Patient presents for triage evaluation secondary to labor FHT: 130 Moderate variability reactive no decelerations category I tracing [place]: irregular Contractions Assessment and plan: threatened labor no cervical change Reactive NST, reassuring maternal and status patient discharged to home to follow-up as scheduled. See problem list details for additional plan information. Laboratory Studies: Laboratory Tests 06/27/23 Range/Units 18:15 Urine Color Yellow (Yellow) Urine Clarity Sl. Cloudy (Clear) Urine pH 6.5 (5.0 - 8.0) Ur Specific [place] 1.015 (1.002-1.030) Urine Protein 30 H (Negative) mg/dl Urine Glucose (UA) Normal (Normal) mg/dl Urine Ketones Negative (Negative) mg/dl Urine Occult Blood Negative (Negative) /ul Urine Nitrite Negative (Negative) Urine Bilirubin Negative (Negative) mg/dL Urine Urobilinogen Normal (Normal) mg/dl Ur Leukocyte Esterase 500 H (Negative) /ul Urine RBC 0 SEEN (0-5) /hpf Urine WBC 5-10 SEEN (0-5) /hpf Ur Squamous Epith Cells 5-10 SEEN (5-10) /hpf Urine Bacteria 1+ (None Seen) /hpf Urine Mucus 0 SEEN (<or=2+) /hpf Charges/Coding Procedures Urinary/Genital 52xxx-59xxx: [id number] non-stress test Interp Assessment & Plan (1) Threatened labor: COMMENT: 06/27 seen in triage 3 cm no cervical change UA and culture sent
== END 2023-06-27 19:00 | disposition home or self-care (01) ==
LOC: WPOUT 17:52 → WP 17:53
PROVIDERS: PCP Family Medicine; Referring Provider Obstetrics & Gynecology; Visit Provider Obstetrics & Gynecology
DX: O47.9 False labor, unspecified (principal); Z3A.00 Weeks of gestation of pregnancy not specified
CPT/HCPCS: 59025; 59050; 81001; 87086

== ENCOUNTER → 2023-07-01 | Outpatient (CLI) | payer MEDICAID, SELFPAY ==
--- OUTSIDE RECORDS SUMMARY | 2023-07-01 16:41 | XMS RPT_ITS | CCD ---
Author Name Unknown Address [address] [place] [address] Organization [facility] Care Team Providers Care Manager Acquisition Name Role Phone ULI ALVAREZ MD Primary Care Physician [phone] MEI Attending Unavaila ULI Douglas Primary Care Unavailable Yusuf Gan Primary Care Provider YUSUF GAN Primary Care Unavailable Yusuf Gan DO Primary Care Provider [phone] YUSUF GAN Attending Unavailable YUSUF GAN Primary [...] Drug Class(es) Dates Sig (Normalized) Sig (Original) [id number] 200 actuat albuterol 0.09 mg/actuat metered dose [...] 16:06-0400 Body height 170.2 cm Yusuf Gan [employer] Work Phone: [employer] 10-07-2022 16:06-0400 Body mass index (BMI) [Ratio] 40.1 kg/m2 Yusuf Bettencourtezequielyunier [employer] Work Phone: [employer] 10-07-2022 16:06-0400 Body temperature 97.11 [degF] Yusuf Bettencourtezequielyunier [employer] Work Phone: [employer] 10-07-2022 16:06-0400 Body weight 116.12 kg Yusuf Bettencourtremberto [employer] Work Phone: [employer] 10-07-2022 16:06-0400 Diastolic blood pressure 69 mm[Hg] Yusuf Bettencourtremberto [employer] Work Phone: [employer] 10-07-2022 16:06-0400 Heart rate 72 /min Yusuf Gan DO Work Phone: [facility] 10-07-2022 16:06-0400 SaO2% (BldA) [Mass fraction] 99 % Yusuf Gan DO Work Phone: [facility] 10-07-2022 16:06-0400 Systolic blood pressure 108 mm[Hg] Yusuf Gan DO Work Phone: [facility] 08-16-2022 07:41-0500 Body temperature 98.1 [degF] Krislyn Aberegg PA Work Phone: [facility] 08-16-2022 07:41-0500 Body weight 112.58 kg Krislyn Aberegg PA Work Phone: [facility] 08-16-2022 07:41-0500 Diastolic blood pressure 76 mm[Hg] Krislyn Aberegg PA Work Phone: [facility] 08-16-2022 07:41-0500 Heart rate 111 /min Krislyn Aberegg PA Work Phone: [facility] 08-16-2022 07:41-0500 Respiratory rate 18 /min Krislyn Aberegg PA Work Phone: [facility] 08-16-2022 07:41-0500 SaO2% (BldA) [Mass fraction] 99 % Krislyn Aberegg PA Work Phone: [facility] 08-16-2022 07:41-0500 Systolic blood pressure 132 mm[Hg] Krislyn Aberegg PA Work Phone: [facility] 04-02-2022 21:02-0400 Body height 170.[address] HAMIDA GASTON MD [facility] 04-02-2022 21:02-0400 Body temperature 98.78 [degF] DR HAMIDA GASTON MD [facility] 04-02-2022 21:02-0400 Body weight 113.[address] HAMIDA GASTON MD [facility] 04-02-2022 21:02-0400 Diastolic blood pressure 84 mm[Hg] DR HAMIDA GASTON MD [facility] 04-02-2022 21:02-0400 Heart rate 82 /min DR HAMIDA GASTON MD [facility] 04-02-2022 21:02-0400 Respiratory rate 18 /min DR HAMIDA GASTON MD [facility] 04-02-2022 21:02-0400 Systolic blood pressure 131 mm[Hg] DR HAMIDA GASTON MD [facility] Encounters Encounter Date Encounter Type Care Provider Facility Start: 03-10-2023 End: 03-10-2023 ambulatory PRIMARY CARE [facility] Start: 10-07-2022 End: 10-07-2022 ambulatory Y[facility]UF G[facility] Start: 10-07-2022 End: 10-07-2022 Office outpatient visit 15 minutes Yusuf Gan DO Work Phone: [facility] Family [facility] Procedures Date Procedure Procedure Detail Performing Clinician Start: 08-16-2022 STREP A MOLECULAR (POC) Estevan Medina PA Work Phone: None (qualifier value) DR RSOALIO GASTON MD Plan of Treatment Date Care Activity Detail Author Start: 2046 Zoster Vaccines (1 of 2) Zoste r Vaccines (1 of 2) [facility] Start: 06-17-2032 DTaP/Tdap/Td Vaccine s (9 - Td or Tdap) DTaP/Tdap/Td Vaccines (9 - Td or Tdap) [facility] Start: 04-09-2023 End: 04-09-2023 Patient encounter procedure 04/09/2023 Office Visit Family Medicine Yusuf Gan DO [address] [place] [id number] [facility] Start: 02-07-2023 Influenza vaccination Influenz a Vaccine (Season Ended) [facility] Start: 06-09-2022 DEPRESSION ASSESSMENT DEPRESSION ASS ESSMENT [facility] Start: 02-07-2022 Influenza vaccination INFLUENZA (#1) [facility] Start: 2017 PAP TESTING PAP TESTING [facility] Start: 2017 Screening for malign ant neoplasm of cervix Pap Smear [facility] Start: 2015 Urine microalbumin profile DTAP,TDAP,TD (1 - Tdap) [facility] Start: 2014 HEPATITIS C SCREENING HEPATITIS C [facility] Start: 2014 Hepatitis C screening Hepatitis C [facility] Start: 2014 HIV SCREENING HIV SCREENING [facility] Start: 2010 PEDS TO ADULT TRANSI TION ANNUAL ASSESSMENT PEDS TO ADULT TRANSITION ANNUAL ASSESSMENT [facility] Start: 2008 PEDS TO ADULT TRANSI TION INITIAL DISCUSSION PEDS TO ADULT TRANSITION INITIAL DISCUSSION [facility] Start: 2007 HPV VACCINE (1 - 2-d ose series) HPV VACCINE (1 - 2-dose series) [facility] Start: 02-16-2002 Varicella vaccination Varicell a Vaccines (1 of 2 - 2-dose childhood series) [facility] Start: 01-10-1997 COVID-19 VACCINE (#1) COVID-19 VACCI NE (#1) [facility] Start: 1996 HEPATITIS B (1 of 3 - 3-dose series) HEPATITIS B (1 of 3 - 3-dose series) [facility] Start: 1996 HIV screening HIV Screening [facility] Immunizations Immunization Date Immunization Notes Care Provider Fa cility 06-17-2022 tetanus toxoid, redu tiffanie diphtheria toxoid, and acellular pertussis vaccine, adsorbed Yusuf Gan DO Work Phone: [facility] 04-16-2018 tetanus toxoid, redu tiffanie diphtheria toxoid, and acellular pertussis vaccine, adsorbed Yusuf Gan DO Work Phone: [facility] 07-30-2013 human papilloma viru s vaccine, quadrivalent Yusuf Gan DO Work Phone: [facility] 03-29-2013 human papilloma viru s vaccine, quadrivalent Yusuf Gan DO Work Phone: [facility] 01-20-2013 HPV, unspecified formulation Yusuf Gan DO Work Phone: [facility] 01-20-2013 meningococcal polysaccharide (groups A, C, Y and W-135) diphtheria toxoid conjugate vaccine (MCV4P) Yusuf Gan DO Work Phone: [facility] 01-20-2013 tetanus toxoid, redu tiffanie diphtheria toxoid, and acellular pertussis vaccine, adsorbed Yusuf Gan DO Work Phone: [facility] 01-19-2002 diphtheria, tetanus toxoids and acellular pertussis vaccine, unspecified formulation Yusuf Gan DO Work Phone: [facility] 01-19-2002 measles, mumps and r ubella virus vaccine Yusuf Gan DO Work Phone: [facility] 01-19-2002 poliovirus vaccine, inactivated Yusuf Gan DO Work Phone: [facility] 11-08-1997 diphtheria, tetanus toxoids and acellular pertussis vaccine, unspecified formulation Yusuf Gan DO Work Phone: [facility] 11-08-1997 haemophilus influenz ae type b vaccine, PRP-T conjugate Yusuf Gan DO Work Phone: [facility] 11-08-1997 measles, mumps and r ubella virus vaccine Yusuf Gan DO Work Phone: [facility] 04-04-1997 hepatitis B vaccine, pediatric or pediatric/adolescent dosage Yusuf Gan DO Work Phone: [facility] 04-04-1997 trivalent poliovirus vaccine, live, oral Yusuf Gan DO Work Phone: [facility] 01-10-1997 diphtheria, tetanus toxoids and pertussis vaccine Yusuf Gan DO Work Phone: [facility] 01-10-1997 haemophilus influenz ae type b vaccine, PRP-T conjugate Yusuf Gan DO Work Phone: [facility] 1996 diphtheria, tetanus toxoids and pertussis vaccine Yusuf Rutlla DO Work Phone: [facility] 1996 haemophilus influenz ae type b vaccine, PRP-T conjugate Yusuf Gan DO Work Phone: [facility] 1996 trivalent poliovirus vaccine, live, oral Yusuf Jimeneza DO Work Phone: [facility] 1996 diphtheria, tetanus toxoids and pertussis vaccine Yusuf Bettencourtlla DO Work Phone: [facility] 1996 haemophilus influenz ae type b vaccine, PRP-T conjugate Yusuf Gan DO Work Phone: [facility] 1996 hepatitis B vaccine, pediatric or pediatric/adolescent dosage Yusuf Gan DO Work Phone: [facility] 1996 trivalent poliovirus vaccine, live, oral Yusuf Gan DO Work Phone: [facility] 1996 hepatitis B vaccine, pediatric or pediatric/adolescent dosage Yusuf Bettencourtlla DO Work Phone: [facility] Payers Date Payer Category Payer Medicaid [id number] 2022 Unknown [id number] 1996 Unknown [id number] 1996 Unknown [id number] Social History Date Type Detail Facility Start: 08-16-2022 Tobacco smoking status Never s moked tobacco (finding) [facility] Start: 1995 Sex Assigned At Female A [facility] Start: 08-16-2022 Tobacco use and exposure Smokeless tobacco non-user [facility] Start: 1996 Sex Assigned At Not on file [facility] Tobacco smoking stat us MOIS Ex-smoker [facility] End: 06-13-2020 History of tobacco use Current smoker [facility] End: 06-13-2020 History of tobacco use Cigarette Smoker [facility] Start: 10-07-2022 Alcohol intake Current drinke r of alcohol (finding) [facility] Start: 09-27-2022 End: 10-07-2022 Exposure to SARS-CoV-2 (event) Not sure [facility] Functional Status Date Assessment Result Facility 04-02-2022 Functional Status Independent [facility] Mental Status Date Assessment Result Facility 04-02-2022 Mental Status Orientation Oriented x 4 [facility] Clinical Notes 04-02-2022 to 10-07-2022 Yusuf Gan DO - 10/07/2022 4:00 PM EDTPatient KARINA Flores - 08/16/2022 7:49 AM EST Note Date & Type Note Facility 10-07-2022 History of Present illness Narrative Images from the original note were not included. [facility] [address] [place] [id number] Visit type: Established Patient Reason for Visit: [...] She does feel the Lexapro is helpful. 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 documented in this encounter [facility] 08-16-2022 Note HNO ID: [id number] Author: KARINA Lim Service: ? Author Type: Physician Independent Agent Music Education Type: Progress Notes Filed: 08/16/2022 8:10 AM Note Text: This note was created using [facility]. Subjective Shakira Izquierdo is a 27 year old female. HPI 27-year-old female presents for sore throat and congestion. Patient has had a sore throat for the past 2 to 3 days. She has had congestion and postnasal drainage. 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 KARINA Lim [facility] 08-16-2022 Instructions KARINA Lim - 08/16/2022 8:04 [...] urine. Chest pain. documented in this encounter [facility] 08-16-2022 History of Present illness Narrative This note was created using [employer]. Subjective Shakira Izquierdo is a 27 year old female. HPI 27-year-old female presents for sore throat and congestion. Patient has had a sore throat for the past 2 to 3 days. She has had congestion and postnasal drainage. 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 KARINA Lim documented in this encounter [facility] 04-04-2022 Note . MICRO - [...] performed at: [facility], [address] [place] [address], [id number]- , [facility] ([place]) 04-02-2022 Hospital Discharge instructions Patient Education 04/02/2022 [...] Hold for 2 seconds, then slowly lower. 9008-8037 [employer]. [address] [place] [address]. All rights reserved. This information is not [...] are taking other medicines. You may use suhn-bmb-gkfspos medicines such as acetaminophen, ibuprofen, or naprosyn [...] Chills Burning or pain when passing urine 9972-2538 [employer]. [address] [place] [address]. All rights reserved. This information is not intended as a substitute for professional medical care. Always follow your healthcare professional's instructions. Follow Up Care 04/02/2022 20:49:18 With:ULI ALVAREZ MD Address: [facility] [address] [place] [address]- When:2-4 days Comments:If no improvement [facility] 04-02-2022 Note Discharge Instructions Thank you for allowing [facility] to assist you with your healthcare needs. [...] 2-4 days Why: If no improvement Where: [id number] [place] [address]- Allergies NKA Medications Please ask your primary [...] may report side effects to FDA at 7-804-CUD-4750. What other drugs will affect tizanidine? Taking [...] drugs may affect tizanidine, including prescription and obpm-jan-pvbouiu medicines, vitamins, and herbal products. Not all [...] to ensure that the information provided by [employer]. ('[employer]') is accurate, up-to-date, and complete, but no guarantee is made to that effect. Drug information contained herein may be time sensitive. [employer] information has been compiled for use by healthcare practitioners and consumers in the [place] and therefore [employer] does not warrant that uses outside of the [place] are appropriate, unless specifically indicated otherwise. [employer] drug information does not endorse drugs, diagnose patients or recommend therapy. [employer] drug information is an informational resource designed [...] effective or appropriate for any given patient. [employer] does not assume any responsibility for any aspect of healthcare administered with the aid of information [employer] provides. The information contained herein is not intended to cover all possible uses, directions, precautions, warnings, drug interactions, allergic reactions, or adverse effects. If you have questions about the drugs you are taking, check with your doctor, nurse or pharmacist. Copyright 6692-7062 [employer]. Version: 4.01. Revision Date: 08/14/2020. ibuprofen (EYE [...] may report side effects to FDA at 8-768-FVM-1450. What other drugs will affect ibuprofen? Ask [...] drugs may affect ibuprofen, including prescription and dkgx-eqb-uaszkfy medicines, vitamins, and herbal products. Not all [...] to ensure that the information provided by [employer]. ('[employer]') is accurate, up-to-date, and complete, but no guarantee is made to that effect. Drug information contained herein may be time sensitive. [employer] information has been compiled for use by healthcare practitioners and consumers in the [place] and therefore [employer] does not warrant that uses outside of the [place] are appropriate, unless specifically indicated otherwise. [employer] drug information does not endorse drugs, diagnose patients or recommend therapy. [employer] drug information is an informational resource designed [...] effective or appropriate for any given patient. [employer] does not assume any responsibility for any aspect of healthcare administered with the aid of information [employer] provides. The information contained herein is not intended to cover all possible uses, directions, precautions, warnings, drug interactions, allergic reactions, or adverse effects. If you have questions about the drugs you are taking, check with your doctor, nurse or pharmacist. Copyright 7538-3954 [employer]. Version: 22.01. Revision Date: 05/03/2020. Education Materials [...] Hold for 2 seconds, then slowly lower. 9337-2558 [employer]. [address] [place] [address], [place] [address]. All rights reserved. This information is not [...] are taking other medicines. You may use zjfb-knf-njsttbd medicines such as acetaminophen, ibuprofen, or naprosyn [...] Chills Burning or pain when passing urine 0166-3743 [employer]. [address] [place] [address]. All rights reserved. This information is not intended as a substitute for professional medical care. Always follow your healthcare professional's instructions. Additional Information VACCINATE! IT SAVES LIVES! Members of the community who have not yet received the COVID-19 vaccine and would like to receive it can visit one of [facility] vaccine clinics. There are many vaccine clinic locations within the [facility]. For locations and available times, please visit [email or web address]. It is important to note that some COVID mobile vaccine clinics are held outdoors and may be canceled in rainy or stormy conditions. To learn more about pediatric vaccinations (ages 5-11), we invite you to visit the [facility] webpage. [email or web address] To learn more about the COVID-19 vaccine, we invite you to visit the [facility] website for a list of frequently asked questions. [email or web address] [email or web address].pdf [facility] Patient Portal Access Instructions: Stay connected with your healthcare team and access your personal medical information anytime with the [email or web address] Patient Portal. If you would like a full copy of your medical records please contact the [facility] Medical Records Department Friday through Friday between 8a.m. and 4:30p.m. Please follow the directions below to access the portal: 1.Access the email account you provided upon registration to the [facility].2.Look for an invitation email from [facility].3.Open the email and access the invitation link: Accept Invitation to [email or web address].Fill in the required cantrell to create your account. Sign into [email or web address] with your username and password that you [...] you will allow to register on the [email or web address] Patient Portal for access to your information. You can also access the [email or web address] Patient Portal on the [employer] stefano. Simply click on Health Records under [...] Call your local pharmacy or go to [email or web address] to find one close to you.3.Make use of household items: Use cat litter or old coffee grounds to dispose medications if other options are not available. Mix your drugs with these household products, seal them in an airtight container and throw it into the garbage. Call [facility]: [phone] to be sure your drugs can be [...] aware that I should contact my doctor. 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: Date/Time: Relationship to Patient: ____ Witness Name/Signature: Date/Time: [facility] 04-02-2022 Evaluation + Plan note Diagnostic Tests PendingUrine Culture 04/02/22 [facility] encounter [facility] Diagnosis Mild episode of recurrent major depressive disorder (HCC)- Primary Acute non-recurrent frontal sinusitis documented in this encounter [facility] Narrative No data available for this section [facility] Summary Purpose Family History No Family [...] Member Role: Primary Care Physician Address: Address: [facility] [address] [place] [address]- Name: HAMIDA GASTON MD Position: ED Physician Member Role: ED Physician Address: Address: [address] [place] [address] Name: Kerrie Gaston RN Position: AO RN Member Role: RN Care Team Related Persons Name: ALICIA ACEVEDO Address: [address] [place] [address] [place] Name: ALICIA ACEVEDO Address: [address] [place] [address] [place] Name: ALICIA ACEVEDO Address: [address] [place] [address] [place] Name: ALICIA ACEVEDO Address: [address] [place] [address] [place] Name: ALICIA ACEVEDO Address: [address] [place] [address] [place] Name: ALICIA ACEVEOD Address: Home [address] [place], [place] [address] [place] [address] Name: ALICIA ACEVEDO Address: Home [address] [place], [place] [address] [address] [place] Name: ALICIA ACEVEDO Address: Home [address] [place], [place] [address] [address] [place] Name: ALICIA ACEVEDO Address: Home [address] [place], [place] [address] [place] [id number] [place] Name: ALICIA ACEVEDO Address: Home [address] [place], [place] [address] [place] [id number] Name: ALICIA ACEVEDO Address: Home [address] [place] [id number] [place] Address: Temporary [address] [place], [place] [id number] Name: ALICIA ACEVEDO Address: Home [address] [place] [id number] [place] Address: Temporary [address] [place], [place] [id number] Name: KENNETH KOEHLER Address: Home [address] [id number] INFORMATION SOURCE (unrecogn ized section and content) DATE CREATED AUTHOR AUTHOR'S ORGANIZ ATION 08/17/2022 [facility] DATE CREATED AUTHOR AUTHOR'S ORGANIZ ATION 10/09/2022 [facility] DATE CREATED AUTHOR AUTHOR'S ORGANIZ ATION 03/15/2023 [facility] Source Comments (unrecognize d section and content) In the event this informatio n is protected by the Federal Confidentiality of Alcohol and Drug Abuse Patient Records regulations: The Federal rules restrict any use of the information to criminally investigate or prosecute any alcohol or drug abuse patient.[facility] Reason for Visit (unrecogniz ed section and content) Reason Comments Follow-up Med check Sinus Problem Care Teams (unrecognized sec tion and content) Manager Acquisition Relationship Specialty Start Date End Date Yusuf Gan Kadie, DO [address] [place] [address] PCP - General 12/22/20 FOR RECORDS PERTAINING [...] BE BASED ON THE PRIMARY CLINICAL RECORDS. [facility] [employer] [facility]. provides no warranty or guarantee of the accuracy or completeness of information in this document.
== END | disposition home or self-care (01) ==
LOC: LABSPEC 16:32
PROVIDERS: PCP Family Medicine; Referring Provider Advanced Practice Midwife; Visit Provider Advanced Practice Midwife
DX: Z34.90 Encounter for supervision of normal pregnancy, unspecified, unspecified trimester (principal); Z3A.00 Weeks of gestation of pregnancy not specified
CPT/HCPCS: 87081

== ENCOUNTER → 2023-07-02 | Outpatient (CLI) | payer MEDICAID, SELFPAY ==
--- NOTE | 2023-07-02 09:29 | US_ITS ---
STUDY: SECOND AND THIRD TRIMESTER OBSTETRICAL ULTRASOUND - LIMITED REASON FOR EXAM: Female, 27 years old History of macrosomia LMP: October 22, 2022. PRIOR ULTRASOUND: Comparison is made with prior ultrasound dated May 20, 2023. TECHNIQUE: Transabdominal TECHNICAL QUALITY: Adequate. FINDINGS: There is a single intrauterine fetus. The fetus is in a cephalic presentation. There is demonstrated cardiac activity with a heart rate of 138 bpm. There is a normal amniotic fluid volume. The largest amniotic fluid pocket measures 6.3 cm. The amniotic fluid index (YUNIOR) is 14.8 cm. The placenta is fundal in location. There are Grade 2 placental changes. The cervical length was not measured due to the head positioning. BIOMETRY: BPD: 9.61 cm: 39 weeks, 2 days HC: 36.21 cm: Out of range. AC: 38.22 cm: Out of range. FL: 7.15 cm: 36 weeks, 4 days Age by LMP: 36 weeks, 1 days. [place] by LMP: July 29, 2023. age by prior US: 38 weeks, 4 days. [place] by prior US: July 12, 2023. age by current US: 39 weeks, 1 days. [place]ET[place] by current US: July 08, 2023. Estimated weight: 4138 grams, +/- 621 grams, 99 percentile. US/OB Limited With Biometrics IMPRESSION: Single live uterine gestation with a mean gestational age of 38 weeks and 4 days. The measurements obtained today fall within the normal expected range. Electronically Signed: Wing Rankin MD at 13:16 EST ,
--- OUTSIDE RECORDS SUMMARY | 2023-07-02 09:50 | XMS RPT_ITS | CCD ---
Author Name Unknown Address [address] [place] [address] Organization [facility] Care Team Providers [employer] Salesperson Name Role Phone ULI ALVAREZ MD Primary Care Physician [phone] MEI Attending Unavaila ULI Douglas Primary Care Unavailable Yusuf Gan Primary Care Provider YUSUF GAN Primary Care Unavailable Yusuf Gan DO Primary Care Provider YUSUF GAN Attending Unavailable YUSUF GAN Primary Care Unavailable RISA PRIMARY CAREMD Primary Care Unavailable YOAN BASILOI Referring UnavailTEZ Delgado Attending Unavailable Medications Current [...] Drug Class(es) Dates Sig (Normalized) Sig (Original) [id number] 200 actuat albuterol 0.09 mg/actuat metered dose [...] 16:06-0400 Body height 170.2 cm Yusuf Gan [employer] Work Phone: [employer] 10-07-2022 16:06-0400 Body mass index (BMI) [Ratio] 40.1 kg/m2 Yusuf Bettencourtezequielyunier [employer] Work Phone: [employer] 10-07-2022 16:06-0400 Body temperature 97.11 [degF] Yusuf Bettencourtezequielyunier [employer] Work Phone: [employer] 10-07-2022 16:06-0400 Body weight 116.12 kg Yusuf Bettencourtremberto [employer] Work Phone: [employer] 10-07-2022 16:06-0400 Diastolic blood pressure 69 mm[Hg] Yusuf Bettencourtremberto [employer] Work Phone: [employer] 10-07-2022 16:06-0400 Heart rate 72 /min Yusuf Gan DO Work Phone: [facility] 10-07-2022 16:06-0400 SaO2% (BldA) [Mass fraction] 99 % Yusuf Gan DO Work Phone: [facility] 10-07-2022 16:06-0400 Systolic blood pressure 108 mm[Hg] Yusuf Gan DO Work Phone: [facility] 08-16-2022 07:41-0500 Body temperature 98.1 [degF] Krislyn Aberegg PA Work Phone: [facility] 08-16-2022 07:41-0500 Body weight 112.58 kg Krislyn Aberegg PA Work Phone: [facility] 08-16-2022 07:41-0500 Diastolic blood pressure 76 mm[Hg] Krislyn Aberegg PA Work Phone: [facility] 08-16-2022 07:41-0500 Heart rate 111 /min Krislyn Aberegg PA Work Phone: [facility] 08-16-2022 07:41-0500 Respiratory rate 18 /min Krislyn Aberegg PA Work Phone: [facility] 08-16-2022 07:41-0500 SaO2% (BldA) [Mass fraction] 99 % Krislyn Aberegg PA Work Phone: [facility] 08-16-2022 07:41-0500 Systolic blood pressure 132 mm[Hg] Krislyn Aberegg PA Work Phone: [facility] 04-02-2022 21:02-0400 Body height 170.[address] HAMIDA GASTON MD [facility] 04-02-2022 21:02-0400 Body temperature 98.78 [degF] DR HAMIDA GASTON MD [facility] 04-02-2022 21:02-0400 Body weight 113.[address] HAMIDA GASTON MD [facility] 04-02-2022 21:02-0400 Diastolic blood pressure 84 mm[Hg] DR HAMIDA GASTON MD [facility] 04-02-2022 21:02-0400 Heart rate 82 /min DR HAMIDA GASTON MD [facility] 04-02-2022 21:02-0400 Respiratory rate 18 /min DR HAMIDA GASTON MD [facility] 04-02-2022 21:02-0400 Systolic blood pressure 131 mm[Hg] DR HAMIDA GASTON MD [facility] Encounters Encounter Date Encounter Type Care Provider Facility Start: 03-10-2023 End: 03-10-2023 ambulatory PRIMARY CARE [facility] Start: 10-07-2022 End: 10-07-2022 ambulatory YUSUF GAN [facility] Start: 10-07-2022 End: 10-07-2022 Office outpatient visit 15 minutes Yusuf Gan DO Work Phone: [facility] Family Medicine Procedures Date Procedure Procedure Detail Performing Clinician Start: 08-16-2022 STREP A MOLECULAR (POC) Estevan Medina PA Work Phone: None (qualifier value) DR ROSALIO GASTON MD Plan of Treatment Date Care Activity Detail Author Start: 2046 Zoster Vaccines (1 of 2) Zoste r Vaccines (1 of 2) [facility] Start: 06-17-2032 DTaP/Tdap/Td Vaccine s (9 - Td or Tdap) DTaP/Tdap/Td Vaccines (9 - Td or Tdap) [facility] Start: 04-09-2023 End: 04-09-2023 Patient encounter procedure 04/09/2023 Office Visit Family Medicine Yusuf Gan DO [address] [place] [id number] [facility] Start: 02-07-2023 Influenza vaccination Influenz a Vaccine (Season Ended) [facility] Start: 06-09-2022 DEPRESSION ASSESSMENT DEPRESSION ASS ESSMENT [facility] Start: 02-07-2022 Influenza vaccination INFLUENZA (#1) [facility] Start: 2017 PAP TESTING PAP TESTING [facility] Start: 2017 Screening for malign ant neoplasm of cervix Pap Smear [facility] Start: 2015 Urine microalbumin profile DTAP,TDAP,TD (1 - Tdap) [facility] Start: 2014 HEPATITIS C SCREENING HEPATITIS C [facility] Start: 2014 Hepatitis C screening Hepatitis C [facility] Start: 2014 HIV SCREENING HIV SCREENING [facility] Start: 2010 PEDS TO ADULT TRANSI TION ANNUAL ASSESSMENT PEDS TO ADULT TRANSITION ANNUAL ASSESSMENT [facility] Start: 2008 PEDS TO ADULT TRANSI TION INITIAL DISCUSSION PEDS TO ADULT TRANSITION INITIAL DISCUSSION [facility] Start: 2007 HPV VACCINE (1 - 2-d ose series) HPV VACCINE (1 - 2-dose series) [facility] Start: 02-16-2002 Varicella vaccination Varicell a Vaccines (1 of 2 - 2-dose childhood series) [facility] Start: 01-10-1997 COVID-19 VACCINE (#1) COVID-19 VACCI NE (#1) [facility] Start: 1996 HEPATITIS B (1 of 3 - 3-dose series) HEPATITIS B (1 of 3 - 3-dose series) [facility] Start: 1996 HIV screening HIV Screening [facility] Immunizations Immunization Date Immunization Notes Care Provider Fa cility 06-17-2022 tetanus toxoid, redu tiffanie diphtheria toxoid, and acellular pertussis vaccine, adsorbed Yusuf Gan DO Work Phone: [facility] 04-16-2018 tetanus toxoid, redu tiffanie diphtheria toxoid, and acellular pertussis vaccine, adsorbed Yusuf Gan DO Work Phone: [facility] 07-30-2013 human papilloma viru s vaccine, quadrivalent Yusuf Gan DO Work Phone: [facility] 03-29-2013 human papilloma viru s vaccine, quadrivalent Yusuf Gan DO Work Phone: [facility] 01-20-2013 HPV, unspecified formulation Yusuf Gan DO Work Phone: [facility] 01-20-2013 meningococcal polysaccharide (groups A, C, Y and W-135) diphtheria toxoid conjugate vaccine (MCV4P) Yusuf Gan DO Work Phone: [facility] 01-20-2013 tetanus toxoid, redu tiffanie diphtheria toxoid, and acellular pertussis vaccine, adsorbed Yusuf Gna DO Work Phone: [facility] 01-19-2002 diphtheria, tetanus toxoids and acellular pertussis vaccine, unspecified formulation Yusuf Gan DO Work Phone: [facility] 01-19-2002 measles, mumps and r ubella virus vaccine Yusuf Gan DO Work Phone: [facility] 01-19-2002 poliovirus vaccine, inactivated Yusuf Gan DO Work Phone: [facility] 11-08-1997 diphtheria, tetanus toxoids and acellular pertussis vaccine, unspecified formulation Yusuf Gan DO Work Phone: [facility] 11-08-1997 haemophilus influenz ae type b vaccine, PRP-T conjugate Yusuf Gan DO Work Phone: [facility] 11-08-1997 measles, mumps and r ubella virus vaccine Yusuf Gan DO Work Phone: [facility] 04-04-1997 hepatitis B vaccine, pediatric or pediatric/adolescent dosage Yusuf Gan DO Work Phone: [facility] 04-04-1997 trivalent poliovirus vaccine, live, oral Yusuf Gan DO Work Phone: [facility] 01-10-1997 diphtheria, tetanus toxoids and pertussis vaccine Yusuf Gan DO Work Phone: [facility] 01-10-1997 haemophilus influenz ae type b vaccine, PRP-T conjugate Yusuf Gan DO Work Phone: [facility] 1996 diphtheria, tetanus toxoids and pertussis vaccine Yusuf Rutlla DO Work Phone: [facility] 1996 haemophilus influenz ae type b vaccine, PRP-T conjugate Yusuf Gan DO Work Phone: [facility] 1996 trivalent poliovirus vaccine, live, oral Yusuf Jimeneza DO Work Phone: [facility] 1996 diphtheria, tetanus toxoids and pertussis vaccine Yusuf Bettencourtlla DO Work Phone: [facility] 1996 haemophilus influenz ae type b vaccine, PRP-T conjugate Yusuf Gan DO Work Phone: [facility] 1996 hepatitis B vaccine, pediatric or pediatric/adolescent dosage Yusuf Gan DO Work Phone: [facility] 1996 trivalent poliovirus vaccine, live, oral Yusuf Gan DO Work Phone: [facility] 1996 hepatitis B vaccine, pediatric or pediatric/adolescent dosage Yusuf Bettencourtlla DO Work Phone: [facility] Payers Date Payer Category Payer Medicaid [id number] 2022 Unknown [id number] 1996 Unknown [id number] 1996 Unknown [id number] Social History Date Type Detail Facility Start: 08-16-2022 Tobacco smoking status Never s moked tobacco (finding) [facility] Start: 1996 Sex Assigned At Female [facility] Start: 08-16-2022 Tobacco use and exposure Smokeless tobacco non-user [facility] Start: 1996 Sex Assigned At Not on file [facility] Tobacco smoking stat us NJIS Ex-smoker [facility] End: 06-13-2020 History of tobacco use Current smoker [facility] End: 06-13-2020 History of tobacco use Cigarette Smoker [facility] Start: 10-07-2022 Alcohol intake Current drinke r of alcohol (finding) [facility] Start: 09-27-2022 End: 10-07-2022 Exposure to SARS-CoV-2 (event) Not sure [facility] Functional Status Date Assessment Result Facility 04-02-2022 Functional Status Independent [facility] Mental Status Date Assessment Result Facility 04-02-2022 Mental Status Orientation Oriented x 4 [facility] Clinical Notes 04-02-2022 to 10-07-2022 Yusuf Gan DO - 10/07/2022 4:00 PM EDTPatient KARINA Flores - 08/16/2022 7:49 AM EST Note Date & Type Note Facility 10-07-2022 History of Present illness Narrative Images from the original note were not included. [facility] [address] [place] [id number] Visit type: Established Patient Reason for Visit: [...] She does feel the Lexapro is helpful. [employer] exams up-to-date No Known Allergies Current Outpatient [...] upbeat today. documented in this encounter [facility] 08-16-2022 Note HNO ID: [id number] Author: KARINA Lim Service: ? Author Type: Physician Coal Handler Type: Progress Notes Filed: 08/16/2022 8:10 AM Note Text: This note was created using [employer]. Subjective Shakira Izquierdo is a 27 year old female. HPI 27-year-old female presents for sore throat and congestion. Patient has had a sore throat for the past 2 to 3 days. She has had congestion and postnasal drainage. 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 KARINA Lim [facility] 08-16-2022 Instructions KARINA Lim - 08/16/2022 [...] urine. Chest pain. documented in this encounter [facility] 08-16-2022 History of Present illness Narrative This note was created using [employer]. Subjective Shakira Izquierdo is a 27 year old female. HPI 27-year-old female presents for sore throat and congestion. Patient has had a sore throat for the past 2 to 3 days. She has had congestion and postnasal drainage. 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 KARINA Lim documented in this encounter [facility] 04-04-2022 Note . MICRO - Microbiology PROCEDURE: Urine Culture [*1] SOURCE: Urine BODY SITE: COLLECTED DATE/TIME: 04/02/2022 21:01 EDT RECEIVED DATE/TIME: 04/03/2022 14:26 EDT START DATE/TIME: 04/03/2022 14:26 EDT FREE TEXT SOURCE: FINAL REPORTS Final Report [] Verified Date/Time/Personnel: 04/04/2022 14:22 EDT 10,000 - 50,000 cfu/ml Mixed growth consistent with normal urogenital cherie. Performing Locations *1: This test was performed at: [facility], [address] [place] [address], [id number] , [facility] 04-02-2022 Hospital Discharge instructions Patient Education 04/02/2022 [...] Hold for 2 seconds, then slowly lower. 3937-6[address] [employer] [place] [address]. All rights reserved. This information is not [...] are taking other medicines. You may use mycg-xao-xeqdmqe medicines such as acetaminophen, ibuprofen, or naprosyn [...] Chills Burning or pain when passing urine 4513-0291 [employer]. [address] [place] [address]. All rights reserved. This information is not intended as a substitute for professional medical care. Always follow your healthcare professional's instructions. Follow Up Care 04/02/2022 20:49:18 With:ULI ALVAREZ MD Address: [facility] [address] [place] [address]- When:2-4 days Comments:If no improvement [facility] 04-02-2022 Note Discharge Instructions Thank you for allowing [facility] to assist you with your healthcare needs. [...] 2-4 days Why: If no improvement Where: [address] [id number] [place] [address]- Allergies NKA Medications Please ask your primary [...] may report side effects to FDA at 0-918-VEH-7435. What other drugs will affect tizanidine? Taking [...] drugs may affect tizanidine, including prescription and gych-jna-pkpyadx medicines, vitamins, and herbal products. Not all [...] to ensure that the information provided by [employer]. ('Mult[employer]') is accurate, up-to-date, and complete, but no guarantee is made to that effect. Drug information contained herein may be time sensitive. [employer] information has been compiled for use by healthcare practitioners and consumers in the [place] and therefore [employer] does not warrant that uses outside of the [place] are appropriate, unless specifically indicated otherwise. [employer] drug information does not endorse drugs, diagnose patients or recommend therapy. [employer] drug information is an informational resource designed [...] effective or appropriate for any given patient. [employer] does not assume any responsibility for any aspect of healthcare administered with the aid of information [employer] provides. The information contained herein is not intended to cover all possible uses, directions, precautions, warnings, drug interactions, allergic reactions, or adverse effects. If you have questions about the drugs you are taking, check with your doctor, nurse or pharmacist. Copyright 6421-9633 [employer]. Version: 4.01. Revision Date: 08/14/2020. ibuprofen (EYE [...] may report side effects to FDA at 9-552-UHY-7311. What other drugs will affect ibuprofen? Ask [...] drugs may affect ibuprofen, including prescription and rypx-ntn-dlqjihf medicines, vitamins, and herbal products. Not all [...] to ensure that the information provided by [employer]. ('[employer]') is accurate, up-to-date, and complete, but no guarantee is made to that effect. Drug information contained herein may be time sensitive. [employer] information has been compiled for use by healthcare practitioners and consumers in the [place] and therefore [employer] does not warrant that uses outside of the [place] are appropriate, unless specifically indicated otherwise. [employer] drug information does not endorse drugs, diagnose patients or recommend therapy. [employer] drug information is an informational resource designed [...] effective or appropriate for any given patient. [employer] does not assume any responsibility for any aspect of healthcare administered with the aid of information [employer] provides. The information contained herein is not intended to cover all possible uses, directions, precautions, warnings, drug interactions, allergic reactions, or adverse effects. If you have questions about the drugs you are taking, check with your doctor, nurse or pharmacist. Copyright 4217-5423 [employer]. Version: 22.01. Revision Date: 05/03/2020. Education Materials [...] Hold for 2 seconds, then slowly lower. 0199-1911 [employer]. [address] [place] [address], [place] [address]. All rights reserved. This information is not [...] are taking other medicines. You may use qdwz-ytt-kcfbmdj medicines such as acetaminophen, ibuprofen, or naprosyn [...] Chills Burning or pain when passing urine 1672-[address] [employer] [place] [address]. All rights reserved. This information is not intended as a substitute for professional medical care. Always follow your healthcare professional's instructions. Additional Information VACCINATE! IT SAVES LIVES! Members of the community who have not yet received the COVID-19 vaccine and would like to receive it can visit one of [facility] vaccine clinics. There are many vaccine clinic locations within the [facility]. For locations and available times, please visit [email or web address]. It is important to note that some COVID mobile vaccine clinics are held outdoors and may be canceled in rainy or stormy conditions. To learn more about pediatric vaccinations (ages 5-11), we invite you to visit the [facility] webpage. [email or web address] [email or web address]-[email or web address] [email or web address] To learn more about the COVID-19 vaccine, we invite you to visit the [facility] website for a list of frequently asked questions. [email or web address]/assets/Itz sc-lmq-Hwwanavl/zbhyo-Cmplaxh-Twe quently_Asked-Questions.pdf [facility] Patient Portal Access Instructions: Stay connected with your healthcare team and access your personal medical information anytime with the [facility] Patient Portal. If you would like a full copy of your medical records please contact the [facility] Medical Records Department Friday through Friday between 8a.m. and 4:30p.m. Please follow the directions below to access the portal: 1.Access the email account you provided upon registration to the [facility].2.Look for an invitation email from [facility].3.Open the email and access the invitation link: Accept Invitation to [facility]4.Fill in the required cantrell to create your account. Sign into www.[employer] with your username and password that you [...] you will allow to register on the [facility] [employer] Patient Portal for access to your information. You can also access the [facility] Patient Portal on the Frontier pte stefano. Simply click on Health Records under [...] Call your local pharmacy or go to [email or web address]/8S8Jx8q to find one close to you.3.Make use of household items: Use cat litter or old coffee grounds to dispose medications if other options are not available. Mix your drugs with these household products, seal them in an airtight container and throw it into the garbage. Call [facility]: [phone] to be sure your drugs can be [...] aware that I should contact my doctor. 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 Signature: Date/Time: Relationship to Patient: ____ Witness Name/Signature: Date/Time: [facility] 04-02-2022 Evaluation + Plan note Diagnostic Tests PendingUrine Culture 04/02/22 [facility] Mild episode of recurrent major depressive disorder (HCC)- Primary Acute non-recurrent frontal sinusitis [facility] Narrative No data available for this section [facility] Summary Purpose Family History No Family History [...] Member Role: Primary Care Physician Address: Address: [facility] [address] [place] [address]- Name: HAMIDA GASTON MD Position: ED Physician Member Role: ED Physician Address: Address: [address] [place] [address] Name: Kerrie Gaston RN Position: AO RN Member Role: RN Care Team Related Persons Name: ALICIA ACEVEDO Address: Home [address] [place] [address] [place] Name: ALICIA ACEVEDO Address: [address] [place] [address] [place] Name: ALICIA ACEVEDO Address: [address] [place] [address] [place] Name: ALICIA ACEVEDO Address: Home [address] [place] [address] [place] Name: ALICIA ACEVEDO Address: Home [address] [place] [address] [place] Name: ALICIA ACEVEDO Address: Home [address] [place], [place] [address] [place] [address] Name: ALICIA ACEVEDO Address: Home [address] [place], [place] [address] [place] [address] [place] Name: ALICIA ACEVEDO Address: Home [address] [place], [place] [address] [place] [address] [place] Name: ALICIA ACEVEDO Address: Home [address] [place], [place] [address] [place] [id number] [place] Name: ALICIA ACEVEDO Address: Home [address] [place], [place] [address] [place] [id number] Name: ALICIA ACEVEDO Address: Home [address] [place] [phone] [place] Address: Temporary [address] [place], [place] [id number] Name: ALICIA ACEVEDO Address: Home [address] [place] [id number] [place] Address: Temporary [address] [place], [place] [id number] Name: KENNETH KOEHLER Address: Home [address] [id number] INFORMATION SOURCE (unrecogn ized section and content) DATE CREATED AUTHOR AUTHOR'S ORGANIZ ATION 08/17/[address] [facility] DATE CREATED AUTHOR AUTHOR'S ORGANIZ ATION 10/09/2022 [facility] DATE CREATED AUTHOR AUTHOR'S ORGANIZ ATION 03/15/2023 [facility] Source Comments (unrecognize d section and content) In the event this informatio n is protected by the Federal Confidentiality of Alcohol and Drug Abuse Patient Records regulations: The Federal rules restrict any use of the information to criminally investigate or prosecute any alcohol or drug abuse patient.[facility] Reason for Visit (unrecogniz ed section and content) Reason Comments Follow-up Med check Sinus Problem Care Teams (unrecognized sec tion and content) [employer] Salesperson Relationship Specialty Start Date End Date Yusuf Gan Kadie, DO [address] [place] [address] PCP - General 12/22/20 FOR RECORDS PERTAINING [...] BE BASED ON THE PRIMARY CLINICAL RECORDS. [facility] [employer] [facility]. provides no warranty or guarantee of the accuracy or completeness of information in this document.
== END | disposition home or self-care (01) ==
PROVIDERS: PCP Family Medicine; Referring Provider Obstetrics & Gynecology; Visit Provider Obstetrics & Gynecology
DX: O09.299 Supervision of pregnancy with other poor reproductive or obstetric history, unspecified trimester (principal); Z3A.00 Weeks of gestation of pregnancy not specified
CPT/HCPCS: 76816

== ENCOUNTER 2023-07-04 19:27 | Outpatient (CLI) | payer MEDICAID, SELFPAY ==
[2023-07-04] VITALS (7 sets, daily range): BP systolic 131–139; BP diastolic 71–80; PULSE 88–101; TEMP 37.2; O2SAT 98; BMI 42.1
--- OUTSIDE RECORDS SUMMARY | 2023-07-04 19:31 | XMS RPT_ITS | CCD ---
Author Name Unknown Address [address] [place] [address] Organization [facility] Care Team Providers Care Hotel Controller Name Role Phone ULI ALVAREZ MD Primary Care Physician [phone] MEI Attending Unavaila ULI Douglas Primary Care Unavailable Yusuf Gan Primary Care Provider [phone] YUSUF GAN Primary Care Unavailable Yusuf Gan DO Primary Care Provider [phone] YUSUF GAN Attending Unavailable YUSUF GAN Primary [...] Drug Class(es) Dates Sig (Normalized) Sig (Original) [id number] 200 actuat albuterol 0.09 mg/actuat metered dose [...] 16:06-0400 Body height 170.2 cm Yusuf Gan [employer] Work Phone: [facility] 10-07-2022 16:06-0400 Body mass index (BMI) [Ratio] 40.1 kg/m2 Yusuf Bettencourtezequielyunier [employer] Work Phone: [facility] 10-07-2022 16:06-0400 Body temperature 97.11 [degF] Yusuf Bettencourtezequielyunier [employer] Work Phone: [facility] 10-07-2022 16:06-0400 Body weight 116.12 kg Yusuf Bettencourtremberto [employer] Work Phone: [facility] 10-07-2022 16:06-0400 Diastolic blood pressure 69 mm[Hg] Yusuf Bettencourtremberto [employer] Work Phone: [facility] 10-07-2022 16:06-0400 Heart rate 72 /min Yusuf Gan DO Work Phone: [facility] 10-07-2022 16:06-0400 SaO2% (BldA) [Mass fraction] 99 % Yusuf Gan DO Work Phone: [facility] 10-07-2022 16:06-0400 Systolic blood pressure 108 mm[Hg] Yusuf Gan DO Work Phone: [facility] 08-16-2022 07:41-0500 Body temperature 98.1 [degF] Krislyn Aberegg PA Work Phone: [facility] 08-16-2022 07:41-0500 Body weight 112.58 kg Krislyn Aberegg PA Work Phone: [facility] 08-16-2022 07:41-0500 Diastolic blood pressure 76 mm[Hg] Krislyn Aberegg PA Work Phone: [facility] 08-16-2022 07:41-0500 Heart rate 111 /min Krislyn Aberegg PA Work Phone: [facility] 08-16-2022 07:41-0500 Respiratory rate 18 /min Krislyn Aberegg PA Work Phone: [facility] 08-16-2022 07:41-0500 SaO2% (BldA) [Mass fraction] 99 % Krislyn Aberegg PA Work Phone: [facility] 08-16-2022 07:41-0500 Systolic blood pressure 132 mm[Hg] Krislyn Aberegg PA Work Phone: [facility] 04-02-2022 21:02-0400 Body height 170.[address] HAMIDA GASTON MD [facility] 04-02-2022 21:02-0400 Body temperature 98.78 [degF] DR HAMIDA GASTON MD [facility] 04-02-2022 21:02-0400 Body weight 113.[address] HAMIDA GASTON MD [facility] 04-02-2022 21:02-0400 Diastolic blood pressure 84 mm[Hg] DR HAMIDA GASTON MD [facility] 04-02-2022 21:02-0400 Heart rate 82 /min DR HAMIDA GASTON MD [facility] 04-02-2022 21:02-0400 Respiratory rate 18 /min DR HAMIDA GASTON MD [facility] 04-02-2022 21:02-0400 Systolic blood pressure 131 mm[Hg] DR HAMIDA GASTON MD [facility] Encounters Encounter Date Encounter Type Care Provider Facility Start: 03-10-2023 End: 03-10-2023 ambulatory PRIMARY CARE [facility] Start: 10-07-2022 End: 10-07-2022 ambulatory YUSUF GAN [facility] Start: 10-07-2022 End: 10-07-2022 Office outpatient visit 15 minutes Yusuf Gan DO Work Phone: [facility] Family Medicine Procedures Date Procedure Procedure Detail Performing Clinician Start: 08-16-2022 STREP A MOLECULAR (POC) Estevan Medina PA Work Phone: None (qualifier value) DR ROSALIO GASTON MD Plan of Treatment Date Care Activity Detail Author Start: 2046 Zoster Vaccines (1 of 2) Zoste r Vaccines (1 of 2) [facility] Start: 06-17-2032 DTaP/Tdap/Td Vaccine s (9 - Td or Tdap) DTaP/Tdap/Td Vaccines (9 - Td or Tdap) [facility] Start: 04-09-2023 End: 04-09-2023 Patient encounter procedure 04/09/2023 Office Visit Family Medicine Yusuf Gan DO [address] [place] [id number] [facility] Start: 02-07-2023 Influenza vaccination Influenz a Vaccine (Season Ended) [facility] Start: 06-09-2022 DEPRESSION ASSESSMENT DEPRESSION ASS ESSMENT [facility] Start: 02-07-2022 Influenza vaccination INFLUENZA (#1) [facility] Start: 2017 PAP TESTING PAP TESTING [facility] Start: 2017 Screening for malign ant neoplasm of cervix Pap Smear [facility] Start: 2015 Urine microalbumin profile DTAP,TDAP,TD (1 - Tdap) [facility] Start: 2014 HEPATITIS C SCREENING HEPATITIS C [facility] Start: 2014 Hepatitis C screening Hepatitis C [facility] Start: 2014 HIV SCREENING HIV SCREENING [facility] Start: 2010 PEDS TO ADULT TRANSI TION ANNUAL ASSESSMENT PEDS TO ADULT TRANSITION ANNUAL ASSESSMENT [facility] Start: 2008 PEDS TO ADULT TRANSI TION INITIAL DISCUSSION PEDS TO ADULT TRANSITION INITIAL DISCUSSION [facility] Start: 2007 HPV VACCINE (1 - 2-d ose series) HPV VACCINE (1 - 2-dose series) [facility] Start: 02-16-2002 Varicella vaccination Varicell a Vaccines (1 of 2 - 2-dose childhood series) [facility] Start: 01-10-1997 COVID-19 VACCINE (#1) COVID-19 VACCI NE (#1) [facility] Start: 1996 HEPATITIS B (1 of 3 - 3-dose series) HEPATITIS B (1 of 3 - 3-dose series) [facility] Start: 1996 HIV screening HIV Screening [facility] Immunizations Immunization Date Immunization Notes Care Provider Fa cility 06-17-2022 tetanus toxoid, redu tiffanie diphtheria toxoid, and acellular pertussis vaccine, adsorbed Yusuf Gan DO Work Phone: [facility] 04-16-2018 tetanus toxoid, redu tiffanie diphtheria toxoid, and acellular pertussis vaccine, adsorbed Yusuf Gan DO Work Phone: [facility] 07-30-2013 human papilloma viru s vaccine, quadrivalent Yusuf Gan DO Work Phone: [facility] 03-29-2013 human papilloma viru s vaccine, quadrivalent Yusuf Gan DO Work Phone: [facility] 01-20-2013 HPV, unspecified formulation Yusuf Gan DO Work Phone: [facility] 01-20-2013 meningococcal polysaccharide (groups A, C, Y and W-135) diphtheria toxoid conjugate vaccine (MCV4P) Yusuf Gan DO Work Phone: [facility] 01-20-2013 tetanus toxoid, redu tiffanie diphtheria toxoid, and acellular pertussis vaccine, adsorbed Yusuf Gan DO Work Phone: [facility] 01-19-2002 diphtheria, tetanus toxoids and acellular pertussis vaccine, unspecified formulation Yusuf Gan DO Work Phone: [facility] 01-19-2002 measles, mumps and r ubella virus vaccine Yusuf Gan DO Work Phone: [facility] 01-19-2002 poliovirus vaccine, inactivated Yusuf Gan DO Work Phone: [facility] 11-08-1997 diphtheria, tetanus toxoids and acellular pertussis vaccine, unspecified formulation Yusuf Gan DO Work Phone: [facility] 11-08-1997 haemophilus influenz ae type b vaccine, PRP-T conjugate Yusuf Gan DO Work Phone: [facility] 11-08-1997 measles, mumps and r ubella virus vaccine Yusuf Gan DO Work Phone: [facility] 04-04-1997 hepatitis B vaccine, pediatric or pediatric/adolescent dosage Yusuf Gan DO Work Phone: [facility] 04-04-1997 trivalent poliovirus vaccine, live, oral Yusuf Gan DO Work Phone: [facility] 01-10-1997 diphtheria, tetanus toxoids and pertussis vaccine Yusuf Gan DO Work Phone: [facility] 01-10-1997 haemophilus influenz ae type b vaccine, PRP-T conjugate Yusuf Gan DO Work Phone: [facility] 1996 diphtheria, tetanus toxoids and pertussis vaccine Yusuf Rutlla DO Work Phone: [facility] 1996 haemophilus influenz ae type b vaccine, PRP-T conjugate Yusuf Gan DO Work Phone: [facility] 1996 trivalent poliovirus vaccine, live, oral Yusuf Jimeneza DO Work Phone: [facility] 1996 diphtheria, tetanus toxoids and pertussis vaccine Yusuf Bettencourtlla DO Work Phone: [facility] 1996 haemophilus influenz ae type b vaccine, PRP-T conjugate Yusuf Gan DO Work Phone: [facility] 1996 hepatitis B vaccine, pediatric or pediatric/adolescent dosage Yusuf Gan DO Work Phone: [facility] 1996 trivalent poliovirus vaccine, live, oral Yusuf Gan DO Work Phone: [facility] 1996 hepatitis B vaccine, pediatric or pediatric/adolescent dosage Yusuf Bettencourtlla DO Work Phone: [facility] Payers Date Payer Category Payer Medicaid [id number] 2022 Unknown [id number] 1996 Unknown [id number] 1996 Unknown [id number] Social History Date Type Detail Facility Start: 08-16-2022 Tobacco smoking status Never s moked tobacco (finding) [facility] Start: 1996 Sex Assigned At Female A [facility] Start: 08-16-2022 Tobacco use and exposure Smokeless tobacco non-user [facility] Start: 1996 Sex Assigned At Not on file C [facility] Tobacco smoking stat us SDIS Ex-smoker [facility] End: 06-13-2020 History of tobacco use Current smoker [facility] End: 06-13-2020 History of tobacco use Cigarette Smoker [facility] Start: 10-07-2022 Alcohol intake Current drinke r of alcohol (finding) [facility] Start: 09-27-2022 End: 10-07-2022 Exposure to SARS-CoV-2 (event) Not sure [facility] Functional Status Date Assessment Result Facility 04-02-2022 Functional Status Independent [facility] Mental Status Date Assessment Result Facility 04-02-2022 Mental Status Orientation Oriented x 4 [facility] Clinical Notes 04-02-2022 to 10-07-2022 Yusuf Gan DO - 10/07/2022 4:00 PM EDTPatient KARINA Flores - 08/16/2022 7:49 AM EST Note Date & Type Note Facility 10-07-2022 History of Present illness Narrative Images from the original note were not included. [facility] [address] [place] [id number] Visit type: Established Patient Reason for Visit: [...] She does feel the Lexapro is helpful. 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 documented in this encounter [facility] 08-16-2022 Note HNO ID: [id number] Author: KARINA Lim Service: ? Author Type: Physician Cut Off Saw Set Up Operator Type: Progress Notes Filed: 08/16/2022 8:10 AM Note Text: This note was created using [employer]. Subjective Shakira Izquierdo is a 27 year old female. HPI 27-year-old female presents for sore throat and congestion. Patient has had a sore throat for the past 2 to 3 days. She has had congestion and postnasal drainage. 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 KARINA Lim [facility] 08-16-2022 Instructions KARINA Lim - 08/16/2022 8:04 [...] urine. Chest pain. documented in this encounter [facility] 08-16-2022 History of Present illness Narrative This note was created using [employer]. Subjective Shakira Izquierdo is a 27 year old female. HPI 27-year-old female presents for sore throat and congestion. Patient has had a sore throat for the past 2 to 3 days. She has had congestion and postnasal drainage. 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 KARINA Lim documented in this encounter [facility] 04-04-2022 Note . MICRO - Microbiology PROCEDURE: Urine Culture [*1] SOURCE: Urine BODY SITE: COLLECTED DATE/TIME: 04/02/2022 21:01 EDT RECEIVED DATE/TIME: 04/03/2022 14:26 EDT START DATE/TIME: 04/03/2022 14:26 EDT FREE TEXT SOURCE: FINAL REPORTS Final Report [] Verified Date/Time/Personnel: 04/04/2022 14:22 EDT 10,000 - 50,000 cfu/ml Mixed growth consistent with normal urogenital cherie. Performing Locations *1: This test was performed at: [facility], [address] [place] [address], [id number] , [facility] [place] 04-02-2022 Hospital Discharge instructions Patient Education 04/02/2022 [...] Hold for 2 seconds, then slowly lower. 6442-06[address] [employer] [place] [address]. All rights reserved. This information is not [...] are taking other medicines. You may use wlpa-mec-vefenrh medicines such as acetaminophen, ibuprofen, or naprosyn [...] Chills Burning or pain when passing urine 1404-[address] [employer] [place] [address]. All rights reserved. This information is not intended as a substitute for professional medical care. Always follow your healthcare professional's instructions. Follow Up Care 04/02/2022 20:49:18 With:ULI ALVAREZ MD Address: [facility] [address] [place] [address]- When:2-4 days Comments:If no improvement [facility] 04-02-2022 Note Discharge Instructions Thank you for allowing [employer] to assist you with your healthcare needs. [...] 2-4 days Why: If no improvement Where: [address] [place] [address]- Allergies NKA Medications Please ask your primary [...] may report side effects to FDA at 8-924-IBH-2797. What other drugs will affect tizanidine? Taking [...] drugs may affect tizanidine, including prescription and rpwl-smx-vxjgzlz medicines, vitamins, and herbal products. Not all [...] to ensure that the information provided by [employer]. ('[employer]') is accurate, up-to-date, and complete, but no guarantee is made to that effect. Drug information contained herein may be time sensitive. [employer] information has been compiled for use by healthcare practitioners and consumers in the [place] and therefore [employer] does not warrant that uses outside of the [place] are appropriate, unless specifically indicated otherwise. Presss drug information does not endorse drugs, diagnose patients or recommend therapy. Flasma drug information is an informational resource designed [...] effective or appropriate for any given patient. [employer] does not assume any responsibility for any aspect of healthcare administered with the aid of information [employer] provides. The information contained herein is not intended to cover all possible uses, directions, precautions, warnings, drug interactions, allergic reactions, or adverse effects. If you have questions about the drugs you are taking, check with your doctor, nurse or pharmacist. Copyright 6769-4428 [employer]. Version: 4.01. Revision Date: 08/14/2020. ibuprofen (EYE [...] may report side effects to FDA at 7-558-ZDE-4797. What other drugs will affect ibuprofen? Ask [...] drugs may affect ibuprofen, including prescription and bdiv-rps-ckjxkry medicines, vitamins, and herbal products. Not all [...] to ensure that the information provided by [employer]. ('[employer]') is accurate, up-to-date, and complete, but no guarantee is made to that effect. Drug information contained herein may be time sensitive. [employer] information has been compiled for use by healthcare practitioners and consumers in the [place] and therefore [employer] does not warrant that uses outside of the [place] are appropriate, unless specifically indicated otherwise. Presss drug information does not endorse drugs, diagnose patients or recommend therapy. [employer] drug information is an informational resource designed [...] effective or appropriate for any given patient. [employer] does not assume any responsibility for any aspect of healthcare administered with the aid of information [employer] provides. The information contained herein is not intended to cover all possible uses, directions, precautions, warnings, drug interactions, allergic reactions, or adverse effects. If you have questions about the drugs you are taking, check with your doctor, nurse or pharmacist. Copyright 6519-1647 [employer]. Version: 22.01. Revision Date: 05/03/2020. Education Materials [...] Hold for 2 seconds, then slowly lower. 6590-[address] [employer]. [address] [place] [address], [place] [address]. All rights reserved. This information is not [...] are taking other medicines. You may use nrug-pig-bwzirjr medicines such as acetaminophen, ibuprofen, or naprosyn [...] Chills Burning or pain when passing urine 3720-5[address] [employer]. [address] [place] [address]. All rights reserved. This information is not intended as a substitute for professional medical care. Always follow your healthcare professional's instructions. Additional Information VACCINATE! IT SAVES LIVES! Members of the community who have not yet received the COVID-19 vaccine and would like to receive it can visit one of [facility] vaccine clinics. There are many vaccine clinic locations within the [facility]. For locations and available times, please visit [email or web address]. It is important to note that some COVID mobile vaccine clinics are held outdoors and may be canceled in rainy or stormy conditions. To learn more about pediatric vaccinations (ages 5-11), we invite you to visit the [facility] webpage. [email or web address] To learn more about the COVID-19 vaccine, we invite you to visit the [employer] website for a list of frequently asked questions. [email or web address] [email or web address] [employer] Patient Portal Access Instructions: Stay connected with your healthcare team and access your personal medical information anytime with the [facility] Patient Portal. If you would like a full copy of your medical records please contact the [facility] Medical Records Department Friday through Friday between 8a.m. and 4:30p.m. Please follow the directions below to access the portal: 1.Access the email account you provided upon registration to the [facility].2.Look for an invitation email from [facility].3.Open the email and access the invitation link: Accept Invitation to [facility]4.Fill in the required cantrell to create your account. Sign into [email or web address] with your username and password that you [...] you will allow to register on the [facility] Patient Portal for access to your information. You can also access the [facility] Patient Portal on the [employer] stefano. Simply click on Health Records under [...] Call your local pharmacy or go to [email or web address] to find one close to you.3.Make use of household items: Use cat litter or old coffee grounds to dispose medications if other options are not available. Mix your drugs with these household products, seal them in an airtight container and throw it into the garbage. Call [facility]: [phone] to be sure your drugs can be [...] aware that I should contact my doctor. 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 Narrative No data available for this section [facility] Summary Purpose Family History No [...] Member Role: Primary Care Physician Address: Address: [facility] [address] [place] [address]- Name: HAMIDA GASTON MD Position: ED Physician Member Role: ED Physician Address: Address: [address] [place] [address] Name: Kerrie Gaston RN Position: AO RN Member Role: RN Care Team Related Persons Name: ALICIA ACEVEDO Address: [address] [place] [address] [place] Name: ALICIA ACEVEDO Address: [address] [place] [address] [place] Name: ALICIA ACEVEDO Address: [address] [place] [address] [place] Name: ALICIA ACEVEDO Address: [address] [place] [address] [place] Name: ALICIA ACEVEDO Address: [address] [place] [address] [place] Name: ALICIA ACEVEDO Address: Home [address] [place], [place] [address] [place] [address] Name: ALICIA ACEVEDO Address: Home [address] [place], [place] [address] [address] [place] Name: ALICIA ACEVEDO Address: Home [address] [place], [place] [address] [address] [place] Name: ALICIA ACEVEDO Address: Home [address] [place], [place] [address] [place] [address] [place] Name: ALICIA ACEVEDO Address: Home [address] [place], [place] [address] [place] [id number] Name: ALICIA ACEVEDO Address: Home [address] [place] [phone] [place] Address: Temporary [address] [place], [place] [id number] Name: ALICIA ACEVEDO Address: Home [address] [place] [phone] [place] Address: Temporary [address] [place], [place] [id number] Name: KENNETH KOEHLER Address: Home [address] [place] [id number] INFORMATION SOURCE (unrecogn ized section and content) DATE CREATED AUTHOR AUTHOR'S ORGANIZ ATION 08/17/2022 [facility] DATE CREATED AUTHOR AUTHOR'S ORGANIZ ATION 10/09/2022 [facility] DATE CREATED AUTHOR AUTHOR'S ORGANIZ ATION 03/15/2023 [facility] Source Comments (unrecognize d section and content) In the event this informatio n is protected by the Federal Confidentiality of Alcohol and Drug Abuse Patient Records regulations: The Federal rules restrict any use of the information to criminally investigate or prosecute any alcohol or drug abuse patient.[facility] Reason for Visit (unrecogniz ed section and content) Reason Comments Follow-up Med check Sinus Problem Care Teams (unrecognized sec tion and content) Hotel Controller Relationship Specialty Start Date End Date Yusuf Gan Kaide, DO [address] [place] [address] PCP - General 12/22/20 FOR RECORDS PERTAINING [...] BE BASED ON THE PRIMARY CLINICAL RECORDS. [facility]. provides no warranty or guarantee of the accuracy or completeness of information in this document.
--- OUTSIDE RECORDS SUMMARY | 2023-07-04 19:32 | XMS RPT_ITS | CCD ---
Author Name Unknown Address [address] [place] [address] Organization [facility] Care Team Providers Care Chemical Production Engineer Name Role Phone ULI ALVAREZ MD Primary [...] Drug Class(es) Dates Sig (Normalized) Sig (Original) [id number] 200 actuat albuterol 0.09 mg/actuat metered dose [...] 16:06-0400 Body height 170.2 cm Yusuf Gan [employer] Work Phone: [employer] 10-07-2022 16:06-0400 Body mass index (BMI) [Ratio] 40.1 kg/m2 Yusuf Bettencourtezequielyunier [employer] Work Phone: [employer] 10-07-2022 16:06-0400 Body temperature 97.11 [degF] Yusuf Bettencourtezequielyunier [employer] Work Phone: [employer] 10-07-2022 16:06-0400 Body weight 116.12 kg Yusuf Bettencourtremberto [employer] Work Phone: [employer] 10-07-2022 16:06-0400 Diastolic blood pressure 69 mm[Hg] Yusuf Bettencourtremberto [employer] Work Phone: [employer] 10-07-2022 16:06-0400 Heart rate 72 /min Yusuf Gan DO Work Phone: [facility] 10-07-2022 16:06-0400 SaO2% (BldA) [Mass fraction] 99 % Yusuf Gan DO Work Phone: [facility] 10-07-2022 16:06-0400 Systolic blood pressure 108 mm[Hg] Yusuf Gan DO Work Phone: [facility] 08-16-2022 07:41-0500 Body temperature 98.1 [degF] Krislyn Aberegg PA Work Phone: [facility] 08-16-2022 07:41-0500 Body weight 112.58 kg Krislyn Aberegg PA Work Phone: [facility] 08-16-2022 07:41-0500 Diastolic blood pressure 76 mm[Hg] Krislyn Aberegg PA Work Phone: [facility] 08-16-2022 07:41-0500 Heart rate 111 /min Krislyn Aberegg PA Work Phone: [facility] 08-16-2022 07:41-0500 Respiratory rate 18 /min Krislyn Aberegg PA Work Phone: [facility] 08-16-2022 07:41-0500 SaO2% (BldA) [Mass fraction] 99 % Krislyn Aberegg PA Work Phone: [facility] 08-16-2022 07:41-0500 Systolic blood pressure 132 mm[Hg] Krislyn Aberegg PA Work Phone: [facility] 04-02-2022 21:02-0400 Body height 170.[address] HAMIDA GASTON MD [facility] 04-02-2022 21:02-0400 Body temperature 98.78 [degF] DR HAMIDA GASTON MD [facility] 04-02-2022 21:02-0400 Body weight 113.[address] HAMIDA GASTON MD [facility] 04-02-2022 21:02-0400 Diastolic blood pressure 84 mm[Hg] DR HAMIDA GASTON MD [facility] 04-02-2022 21:02-0400 Heart rate 82 /min DR HAMIDA GASTON MD [facility] 04-02-2022 21:02-0400 Respiratory rate 18 /min DR HAMIDA GASTON MD [facility] 04-02-2022 21:02-0400 Systolic blood pressure 131 mm[Hg] DR HAMIDA GASTON MD [facility] Encounters Encounter Date Encounter Type Care Provider Facility Start: 03-10-2023 End: 03-10-2023 ambulatory PRIMARY CARE [facility] Start: 10-07-2022 End: 10-07-2022 ambulatory YUSUF GAN [facility] Start: 10-07-2022 End: 10-07-2022 Office outpatient visit 15 minutes Yusuf Gan DO Work Phone: [facility] Family [facility] Procedures Date Procedure Procedure Detail Performing Clinician Start: 08-16-2022 STREP A MOLECULAR (POC) Estevan Medina PA Work Phone: None (qualifier value) DR ROSALIO GASTON MD Plan of Treatment Date Care Activity Detail Author Start: 2046 Zoster Vaccines (1 of 2) Zoste r Vaccines (1 of 2) [facility] Start: 06-17-2032 DTaP/Tdap/Td Vaccine s (9 - Td or Tdap) DTaP/Tdap/Td Vaccines (9 - Td or Tdap) [facility] Start: 04-09-2023 End: 04-09-2023 Patient encounter procedure 04/09/2023 Office Visit Family Medicine Yusuf Gan DO [address] [place] [id number] [facility] Start: 02-07-2023 Influenza vaccination Influenz a Vaccine (Season Ended) [facility] Start: 06-09-2022 DEPRESSION ASSESSMENT DEPRESSION ASS ESSMENT [facility] Start: 02-07-2022 Influenza vaccination INFLUENZA (#1) [facility] Start: 2017 PAP TESTING PAP TESTING [facility] Start: 2017 Screening for malign ant neoplasm of cervix Pap Smear [facility] Start: 2015 Urine microalbumin profile DTAP,TDAP,TD (1 - Tdap) [facility] Start: 2014 HEPATITIS C SCREENING HEPATITIS C [facility] Start: 2014 Hepatitis C screening Hepatitis C [facility] Start: 2014 HIV SCREENING HIV SCREENING [facility] Start: 2010 PEDS TO ADULT TRANSI TION ANNUAL ASSESSMENT PEDS TO ADULT TRANSITION ANNUAL ASSESSMENT [facility] Start: 2008 PEDS TO ADULT TRANSI TION INITIAL DISCUSSION PEDS TO ADULT TRANSITION INITIAL DISCUSSION [facility] Start: 2007 HPV VACCINE (1 - 2-d ose series) HPV VACCINE (1 - 2-dose series) [facility] Start: 02-16-2002 Varicella vaccination Varicell a Vaccines (1 of 2 - 2-dose childhood series) [facility] Start: 01-10-1997 COVID-19 VACCINE (#1) COVID-19 VACCI NE (#1) [facility] Start: 1996 HEPATITIS B (1 of 3 - 3-dose series) HEPATITIS B (1 of 3 - 3-dose series) [facility] Start: 1996 HIV screening HIV Screening [facility] Immunizations Immunization Date Immunization Notes Care Provider Fa cility 06-17-2022 tetanus toxoid, redu tiffanie diphtheria toxoid, and acellular pertussis vaccine, adsorbed Yusuf Gan DO Work Phone: [facility] 04-16-2018 tetanus toxoid, redu tiffanie diphtheria toxoid, and acellular pertussis vaccine, adsorbed Yusuf Gan DO Work Phone: [facility] 07-30-2013 human papilloma viru s vaccine, quadrivalent Yusuf Gan DO Work Phone: [facility] 03-29-2013 human papilloma viru s vaccine, quadrivalent Yusuf Gan DO Work Phone: [facility] 01-20-2013 HPV, unspecified formulation Yusuf Gan DO Work Phone: [facility] 01-20-2013 meningococcal polysaccharide (groups A, C, Y and W-135) diphtheria toxoid conjugate vaccine (MCV4P) Yusuf Gan DO Work Phone: [facility] 01-20-2013 tetanus toxoid, redu tiffanie diphtheria toxoid, and acellular pertussis vaccine, adsorbed Yusuf Gan DO Work Phone: [facility] 01-19-2002 diphtheria, tetanus toxoids and acellular pertussis vaccine, unspecified formulation Yusuf Gan DO Work Phone: [facility] 01-19-2002 measles, mumps and r ubella virus vaccine Yusuf Gan DO Work Phone: [facility] 01-19-2002 poliovirus vaccine, inactivated Yusuf Gan DO Work Phone: [facility] 11-08-1997 diphtheria, tetanus toxoids and acellular pertussis vaccine, unspecified formulation Yusuf Gan DO Work Phone: [facility] 11-08-1997 haemophilus influenz ae type b vaccine, PRP-T conjugate Yusuf Gan DO Work Phone: [facility] 11-08-1997 measles, mumps and r ubella virus vaccine Yusuf Gan DO Work Phone: [facility] 04-04-1997 hepatitis B vaccine, pediatric or pediatric/adolescent dosage Yusuf Gan DO Work Phone: [facility] 04-04-1997 trivalent poliovirus vaccine, live, oral Yusuf Gan DO Work Phone: [facility] 01-10-1997 diphtheria, tetanus toxoids and pertussis vaccine Yusuf Gan DO Work Phone: [facility] 01-10-1997 haemophilus influenz ae type b vaccine, PRP-T conjugate Yusuf Gan DO Work Phone: [facility] 1996 diphtheria, tetanus toxoids and pertussis vaccine Yusuf Rutlla DO Work Phone: [facility] 1996 haemophilus influenz ae type b vaccine, PRP-T conjugate Yusuf Gan DO Work Phone: [facility] 1996 trivalent poliovirus vaccine, live, oral Yusuf Jimeneza DO Work Phone: [facility] 1996 diphtheria, tetanus toxoids and pertussis vaccine Yusuf Bettencourtlla DO Work Phone: [facility] 1996 haemophilus influenz ae type b vaccine, PRP-T conjugate Yusuf Gan DO Work Phone: [facility] 1996 hepatitis B vaccine, pediatric or pediatric/adolescent dosage Yusuf Gan DO Work Phone: [facility] 1996 trivalent poliovirus vaccine, live, oral Yusuf Gan DO Work Phone: [facility] 1996 hepatitis B vaccine, pediatric or pediatric/adolescent dosage Yusuf Bettencourtlla DO Work Phone: [facility] Payers Date Payer Category Payer Medicaid [id number] 2022 Unknown [id number] 1996 Unknown [id number] 1996 Unknown [id number] Social History Date Type Detail Facility Start: 08-16-2022 Tobacco smoking status Never s moked tobacco (finding) [facility] Start: 1996 Sex Assigned At Female A [facility] Start: 08-16-2022 Tobacco use and exposure Smokeless tobacco non-user [facility] Start: 1996 Sex Assigned At Not on file [facility] Tobacco smoking stat us [facility] Ex-smoker [facility] End: 06-13-2020 History of tobacco use Current smoker [facility] End: 06-13-2020 History of tobacco use Cigarette Smoker [facility] Start: 10-07-2022 Alcohol intake Current drinke r of alcohol (finding) [facility] Start: 09-27-2022 End: 10-07-2022 Exposure to SARS-CoV-2 (event) Not sure [facility] Functional Status Date Assessment Result Facility 04-02-2022 Functional Status Independent [facility] Mental Status Date Assessment Result Facility 04-02-2022 Mental Status Orientation Oriented x 4 [facility] Clinical Notes 04-02-2022 to 10-07-2022 Yusuf Gan DO - 10/07/2022 4:00 PM EDTPatient KARINA Flores - 08/16/2022 7:49 AM EST Note Date & Type Note Facility 10-07-2022 History of Present illness Narrative Images from the original note were not included. [facility] [address] [place] [id number] Visit type: Established Patient Reason for Visit: [...] She does feel the Lexapro is helpful. 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 documented in this encounter [facility] 08-16-2022 Note HNO ID: [id number] Author: KARINA Lim Service: ? Author Type: Physician Python Web Developer Type: Progress Notes Filed: 08/16/2022 8:10 AM Note Text: This note was created using woohoo mobile marketing. Subjective Shakira Izquierdo is a 27 year old female. HPI 27-year-old female presents for sore throat and congestion. Patient has had a sore throat for the past 2 to 3 days. She has had congestion and postnasal drainage. 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 KARINA Lim [facility] 08-16-2022 Instructions KARINA Lim - 08/16/2022 [...] urine. Chest pain. documented in this encounter [facility] 08-16-2022 History of Present illness Narrative This note was created using Mixgarriter. Subjective Shakira Izquierdo is a 27 year old female. HPI 27-year-old female presents for sore throat and congestion. Patient has had a sore throat for the past 2 to 3 days. She has had congestion and postnasal drainage. 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 KARINA Lim documented in this encounter [facility] 04-04-2022 Note . MICRO - Microbiology PROCEDURE: Urine Culture [*1] SOURCE: Urine BODY SITE: COLLECTED DATE/TIME: 04/02/2022 21:01 EDT RECEIVED DATE/TIME: 04/03/2022 14:26 EDT START DATE/TIME: 04/03/2022 14:26 EDT FREE TEXT SOURCE: FINAL REPORTS Final Report [] Verified Date/Time/Personnel: 04/04/2022 14:22 EDT 10,000 - 50,000 cfu/ml Mixed growth consistent with normal urogenital cherie. Performing Locations *1: This test was performed at: [facility], [address] [place] [address], [id number]- , [facility] ([place]) 04-02-2022 Hospital Discharge instructions Patient Education 04/02/2022 [...] Hold for 2 seconds, then slowly lower. 8053-0222 [employer]. [address] [place] [address]. All rights reserved. This information is not [...] are taking other medicines. You may use vbhp-yog-ctkpsws medicines such as acetaminophen, ibuprofen, or naprosyn [...] Chills Burning or pain when passing urine 8635-8584 [employer]. [address] [place] [address]. All rights reserved. This information is not intended as a substitute for professional medical care. Always follow your healthcare professional's instructions. Follow Up Care 04/02/2022 20:49:18 With:ULI ALVAREZ MD Address: [facility] [address] [place] [address]- When:2-4 days Comments:If no improvement [facility] 04-02-2022 Note Discharge Instructions Thank you for allowing [facility] to assist you with your healthcare needs. [...] 2-4 days Why: If no improvement Where: [place] [place] [address]- Allergies NKA Medications Please ask your primary [...] may report side effects to FDA at [phone]-ZIX-0356. What other drugs will affect tizanidine? Taking [...] drugs may affect tizanidine, including prescription and qrxk-wsr-trzofme medicines, vitamins, and herbal products. Not all [...] to ensure that the information provided by [employer]. ('Multum') is accurate, up-to-date, and complete, but no guarantee is made to that effect. Drug information contained herein may be time sensitive. [employer]Flash information has been compiled for use by healthcare practitioners and consumers in the [place] and therefore [employer] does not warrant that uses outside of the [place] are appropriate, unless specifically indicated otherwise. [employer] drug information does not endorse drugs, diagnose patients or recommend therapy. [employer] drug information is an informational resource designed [...] effective or appropriate for any given patient. [employer] does not assume any responsibility for any aspect of healthcare administered with the aid of information [employer] provides. The information contained herein is not intended to cover all possible uses, directions, precautions, warnings, drug interactions, allergic reactions, or adverse effects. If you have questions about the drugs you are taking, check with your doctor, nurse or pharmacist. Copyright 4656-5750 [employer]. Version: 4.01. Revision Date: 08/14/2020. ibuprofen (EYE [...] may report side effects to FDA at 5-194-JFV-5190. What other drugs will affect ibuprofen? Ask [...] drugs may affect ibuprofen, including prescription and mrkx-eas-rzkyjtc medicines, vitamins, and herbal products. Not all [...] to ensure that the information provided by [employer]. ('[employer]') is accurate, up-to-date, and complete, but no guarantee is made to that effect. Drug information contained herein may be time sensitive. [employer]Flash information has been compiled for use by healthcare practitioners and consumers in the [place] and therefore [employer] does not warrant that uses outside of the [place] are appropriate, unless specifically indicated otherwise. [employer] drug information does not endorse drugs, diagnose patients or recommend therapy. [employer] drug information is an informational resource designed [...] effective or appropriate for any given patient. [employer] does not assume any responsibility for any aspect of healthcare administered with the aid of information [employer] provides. The information contained herein is not intended to cover all possible uses, directions, precautions, warnings, drug interactions, allergic reactions, or adverse effects. If you have questions about the drugs you are taking, check with your doctor, nurse or pharmacist. Copyright 3167-3043 [employer]. Version: 22.01. Revision Date: 05/03/2020. Education Materials [...] Hold for 2 seconds, then slowly lower. 0420-9339 [employer]. [address] [place] [address], [place] [address]. All rights reserved. This information is not [...] are taking other medicines. You may use pujq-oik-mciryty medicines such as acetaminophen, ibuprofen, or naprosyn [...] Chills Burning or pain when passing urine 9453-3756 [employer]. [address] [place] [address]. All rights reserved. This information is not intended as a substitute for professional medical care. Always follow your healthcare professional's instructions. Additional Information VACCINATE! IT SAVES LIVES! Members of the community who have not yet received the COVID-19 vaccine and would like to receive it can visit one of [facility] vaccine clinics. There are many vaccine clinic locations within the [facility]. For locations and available times, please visit [email or web address]. It is important to note that some COVID mobile vaccine clinics are held outdoors and may be canceled in rainy or stormy conditions. To learn more about pediatric vaccinations (ages 5-11), we invite you to visit the [facility] webpage. [email or web address] To learn more about the COVID-19 vaccine, we invite you to visit the [facility] website for a list of frequently asked questions. [email or web address] quently_[email or web address].pdf [facility] Patient Portal Access Instructions: Stay connected with your healthcare team and access your personal medical information anytime with the [facility] Patient Portal. If you would like a full copy of your medical records please contact the [facility] Medical Records Department Friday through Friday between 8a.m. and 4:30p.m. Please follow the directions below to access the portal: 1.Access the email account you provided upon registration to the [facility].2.Look for an invitation email from [facility].3.Open the email and access the invitation link: Accept Invitation to [facility]4.Fill in the required cantrell to create your account. Sign into [email or web address] with your username and password that you [...] you will allow to register on the [facility] Patient Portal for access to your information. You can also access the [facility] Patient Portal on the [employer] stefano. Simply click on Health Records under [...] Call your local pharmacy or go to [email or web address] to find one close to you.3.Make use of household items: Use cat litter or old coffee grounds to dispose medications if other options are not available. Mix your drugs with these household products, seal them in an airtight container and throw it into the garbage. Call [facility]: [phone] to be sure your drugs can be [...] aware that I should contact my doctor. 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: Date/Time: Relationship to Patient: ____ Witness Name/Signature: Date/Time: [facility] 04-02-2022 Evaluation + Plan note Diagnostic Tests PendingUrine Culture 04/02/22 [facility] Mild episode of recurrent major depressive disorder (HCC)- Primary Acute non-recurrent frontal sinusitis [facility] Narrative No data available for this section [facility] Summary Purpose Family History No Family [...] Member Role: Primary Care Physician Address: Address: [facility] [address] [place] [address]- Name: HAMIDA GASTON MD Position: ED Physician Member Role: ED Physician Address: Address: [address] [place] [address] Name: Kerrie Gaston RN Position: AO RN Member Role: RN Care Team Related Persons Name: ALICIA ACEVEDO Address: [address] [place] [address] [place] Name: ALICIA ACEVEDO Address: [address] [place] [address] [place] Name: ALICIA ACEVEDO Address: [address] [place] [address] [place] Name: ALICIA ACEVEDO Address: [address] [place] [address] [place] Name: ALICIA ACEVEDO Address: [address] [place] [address] [place] Name: ALICIA ACEVEDO Address: Home [address] [place], [place] [address] [place] [address] Name: ALICIA ACEVEDO Address: Home [address] [place], [place] [address] [place] [address] [place] Name: ALICIA ACEVEDO Address: Home [address] [place], [place] [address] [place] [address] [place] Name: ALICIA ACEVEDO Address: Home [address] [place], [place] [address] [place] [id number] [place] Name: ALICIA ACEVEDO Address: Home [address] [place], [place] [address] [place] [id number] Name: ALICIA ACEVEDO Address: Home [address] [place] [phone] [place] Address: Temporary [address] [place], [place] [id number] Name: ALICIA ACEVEDO Address: Home [address] [place] [id number] [place] Address: Temporary [address] [place], [place] [id number] Name: KENNETH KOEHLER Address: Home [address] [place] [id number] INFORMATION SOURCE (unrecogn ized section and content) DATE CREATED AUTHOR AUTHOR'S ORGANIZ ATION 08/17/2022 [facility] DATE CREATED AUTHOR AUTHOR'S ORGANIZ ATION 10/09/[address] [facility] DATE CREATED AUTHOR AUTHOR'S ORGANIZ ATION 03/15/2023 [facility] Source Comments (unrecognize d section and content) In the event this informatio n is protected by the Federal Confidentiality of Alcohol and Drug Abuse Patient Records regulations: The Federal rules restrict any use of the information to criminally investigate or prosecute any alcohol or drug abuse patient.[facility] Reason for Visit (unrecogniz ed section and content) Reason Comments Follow-up Med check Sinus Problem Care Teams (unrecognized sec tion and content) Chemical Production Engineer Relationship Specialty Start Date End Date Yusuf Gan Kadie, DO [address] [place] [address] PCP - General 12/22/20 FOR RECORDS PERTAINING [...] BE BASED ON THE PRIMARY CLINICAL RECORDS. [facility] [facility]. provides no warranty or guarantee of the accuracy or completeness of information in this document.
--- NOTE | 2023-07-05 11:16 | OB.TRI.HP_ITS ---
HPI - General General Date of Service: 07/04/23 HPI Narrative SHAKIRA THOMPSON, is a 27 F who presents at 36.3 with contractions. no lof/vb good fm. Maternal Data Information LORETTA Calculator Estimated Delivery Date Method Current WG Current Estimate 07/29/23 Ultrasound #1 36w 4d Other Estimates 07/13/23 LMP (Certain) 38w 6d PFSH PFSH Medical History Anxiety Asthma Encounter for IUD removal PCOS (polycystic ovarian syndrome) Home Medications albuterol sulfate 90 mcg/actuation aerosol inhaler 1 puff inhalation ONCE #8.5 grams 02/20/23 [Rx Last Taken 06/18/23 08:00 1 puff] vitamins no.163-iron bis-gly 20 mg-folate no.10 1 mg tablet (PNV Tabs 20-1) 1 tab PO DAILY 02/20/23 [History Last Taken 07/03/23] magnesium 250 mg tablet 250 mg PO DAILY 02/25/23 [History Last Taken 07/03/23] cephalexin 500 mg capsule 500 mg PO Q6 #28 caps 05/23/23 [Rx Last Taken 07/03/23] ferrous sulfate 325 mg (65 mg iron) tablet (Feosol) 325 mg PO DAILY 07/04/23 [History Last Taken 07/03/23] Allergy/AdvReac Type Severity Reaction Status Date / Time No Known Allergies Allergy Verified 07/04/23 19:58 Surgical History H/O dilation and curettage Social History household members: spouse and children housing: house number of children: 2 pets and animals: No Smoking Status: Never smoker second hand exposure: No alcohol intake: never substance use type: does not use caffeine: Yes what type of physical activity do you participate in: none seatbelt use: always do you feel safe at home: Yes 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 Date Name GA/Weeks Outcome Route Bth Weight Infant Gen Labor Lgth Anesthesia Del Locatn Provider FOB Unknown 2019 August 41 live - full term 10lbs 3oz Mal e 19.5 hours epidural [facility] Octavio Unknown AJ (custody of) Delivery Date: Last Updated by: Marnie Dyer 's cousin Visit Details Expected Delivery Route/Plan Labor Preferences- CB/BF classes: no labor support person: Wes labor intervention preferences: [] pain management options preferred: epidural cut cord/dad catch: yes : yes PP control planned: desires tubal ligation discussed possible routes of delivery and associated risks: [] special requests: [] Plans Covid status: discussed Flu vaccine: given Tdap vaccine: given Rhogam: na LARC form signed: yes Problem list reviewed and updated with the most current plan of care details and appropriate orders placed. Relevant counseling for the gestational age provided. Continue routine care and follow up unless otherwise noted in visit notes/problem list details OB Flowsheet Initial Weight: Not Recorded Date -?-?-?-?-?-?-?-?-?-?-?-?- EGA Weight BP Urine Prot -?-?-?-?-?-?-?-?-?-?-?-?- Glucose FHR FuHt Pres Dilation -?-?-?-?-?-?-?-?-?-?-?-?- Effaced St Visit Note 12/23/22 -?-?-?-?-?-?-?-?-?-?-?-?- 8w 6d 253 lb 6 oz 121/79 -?-?-?-?-?-?-?-?-?-?-?-?- 165 -?-?-?-?-?-?-?-?-?-?-?-?- LC- no vb/crampi ng.CRL 19.3 on handheld. will obtain formal us this week for hx of PCOS. 01/24/23 -?-?-?-?-?-?-?--?-?-?-?-?- 13w 3d 251 lb 6 oz 122/76 Nega tive -?-?-?-?-?-?-?-?-?-?-?-?- Negative 155 -?-?-?-?-?-?-?-?-?-?-?-?- SM- no vb crampi ng 02/20/23 -?-?-?-?-?-?-?-?-?-?-?-?- 17w 2d 252 lb 4 oz 127/80 Nega tive -?-?-?-?-?-?-?-?-?-?-?-?- Negative 150 -?-?-?-?-?-?-?-?-?-?-?-?- KW-no vb/crampin g. + flutters. US scheduled for 03/09. recommended magnesium and tylenol for headaches. Starting a cold, requesting albuterol inhaler. 03/19/23 -?-?-?-?-?-?-?-?-?-?-?-?- 21w 1d 257 lb 4 oz 123/77 Nega tive -?-?-?-?-?-?-?-?-?-?-?-?- Negative 137 21 -?-?-?-?-?-?-?-?-?-?-?-?- LC- no vb/crampi ng. +flutters. vocalizing desires for c/s due to macrosomia and 3rd degree laceration with tubal ligation. LC- no vb/cramping. +flutter s. vocalizing desires for c/s due to macrosomia and 3rd degree laceration with tubal ligation. 04/16/23 -?-?-?-?-?-?-?-?-?-?-?-?- 25w 1d 258 lb 8 oz 138/74 Nega tive -?-?-?-?-?-?-?-?-?-?-?-?- Negative 125 25 -?--?-?-?-?-?-?-?-?-?-?-?- LC- no vb/ctx/lo f. great fm. desires PP tubal and discussed obtaining 36 weeks growth with iol at 39 weeks, desires this instead of c/s for 3rd degree lac hx. 28 week labs ordered. 05/07/23 -?-?-?-?-?-?-?-?-?-?-?-?- 28w 1d 262 lb 4 oz 126/84 Nega tive -?-?-?-?-?-?-?-?-?-?-?-?- Negative 134 28 -?-?-?-?-?-?--?-?-?-?-?-?- MH-No Vb, LOF. G ood FM. 28 wk labs. Tdap, flu, larc. 05/21/23 -?-?-?-?-?-?-?-?-?-?-?-?- 30w 1d 266 lb 115/76 -?-?-?-?-?-?-?-?-?-?-?-?- 135 31 -?-?-?-?-?-?-?-?-?-?-?-?- JV- no complaint s. last growth scan was 98th%. has h/o 10 pound baby delivery at 41 weeks with 3rd degree tear. rpt growth at 36 weeks 06/04/23 -?-?-?-?-?-?-?-?-?-?-?-?- 32w 1d 268 lb 6 oz 123/73 Nega tive -?-?-?-?-?-?-?-?-?-?-?-?- Negative 156 33 -?-?-?-?-?-?-?-?-?-?-?-?- JV- pt wishes to have a remote from delivery bilateral salpingectomy. title 19 signed today. No other complaints. 06/18/23 -?-?-?-?-?-?-?-?-?-?-?-?- 34w 1d 270 lb 124/78 Negative -?-?-?-?-?-?-?-?-?-?-?-?- Negative 135 34 -?-?-?-?-?-?-?-?-?-?-?-?- LC- no vb/ctx/lo f. good fm. increased yellow discharge- genital cx obtained. LC- no vb/ctx/lof. good fm. increased yellow discharge- genital cx obtained. rapid bv neg. 07/01/23 -?-?-?-?-?-?-?-?-?-?-?-?- 36w 0d 276 lb 6 oz 137/82 Nega tive -?-?-?-?-?-?-?-?-?-?-?-?- Negative 142 38 Cephalic 3 -?-?-?-?-?-?-?-?-?-?-?-?- 80 -2 -1 KW- no vb/lof/c tx. good fm. GBS today. Growth US-tomorrow. increased pelvic pressure. NST FHR Rate Baby A Baseline: 140 Variability:: Moderate Accelerations:: 15 x 15 Decelerations:: None NST Reactive:: Yes FHR Category:: Category I Uterine Activity:: irregular.
--- NOTE | 2023-07-05 11:16 | OB.TRI.NOTE ---
HPI - General General Date of Service: 07/04/23 HPI Narrative SHAKIRA THOMPSON, is a 27 F who presents at 36.3 with contractions. no lof/vb good fm. Maternal Data Information LORETTA Calculator Estimated Delivery Date Method Current WG Current Estimate 07/29/23 Ultrasound #1 36w 4d Other Estimates 07/13/23 LMP (Certain) 38w 6d PFSH PFSH Medical History Anxiety Asthma Encounter for IUD removal PCOS (polycystic ovarian syndrome) Home Medications albuterol sulfate 90 mcg/actuation aerosol inhaler 1 puff inhalation ONCE #8.5 grams 02/20/23 [Rx Last Taken 06/18/23 08:00 1 puff] vitamins no.163-iron bis-gly 20 mg-folate no.10 1 mg tablet (PNV Tabs 20-1) 1 tab PO DAILY 02/20/23 [History Last Taken 07/03/23] magnesium 250 mg tablet 250 mg PO DAILY 02/25/23 [History Last Taken 07/03/23] cephalexin 500 mg capsule 500 mg PO Q6 #28 caps 05/23/23 [Rx Last Taken 07/03/23] ferrous sulfate 325 mg (65 mg iron) tablet (Feosol) 325 mg PO DAILY 07/04/23 [History Last Taken 07/03/23] Allergy/AdvReac Type Severity Reaction Status Date / Time No Known Allergies Allergy Verified 07/04/23 19:58 Surgical History H/O dilation and curettage Social History household members: spouse and children housing: house number of children: 2 pets and animals: No Smoking Status: Never smoker second hand exposure: No alcohol intake: never substance use type: does not use caffeine: Yes what type of physical activity do you participate in: none seatbelt use: always do you feel safe at home: Yes 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 Date Name GA/Weeks Outcome Route Bth Weight Infant Gen Labor Lgth Anesthesia Del Locatn Provider FOB Unknown 2018 August 41 live - full term 10lbs 3oz Male 19.5 hours epidural [facility] Octavio Unknown AJ (custody of) Delivery Date: Last Updated by: Marnie Dyer 's cousin Visit Details Expected Delivery Route/Plan Labor Preferences- CB/BF classes: no labor support person: Wes labor intervention preferences: [] pain management options preferred: epidural cut cord/dad catch: yes : yes PP control planned: desires tubal ligation discussed possible routes of delivery and associated risks: [] special requests: [] Plans Covid status: discussed Flu vaccine: given Tdap vaccine: given Rhogam: na LARC form signed: yes Problem list reviewed and updated with the most current plan of care details and appropriate orders placed. Relevant counseling for the gestational age provided. Continue routine care and follow up unless otherwise noted in visit notes/problem list details OB Flowsheet Initial Weight: Not Recorded Date <del>?</del> EGA Weight BP Urine Prot <del>?</del> Glucose FHR FuHt Pres Dilation <del>?</del> Effaced St Visit Note 12/23/22 <del>?</del> 8w 6d 253 lb 6 oz 121/79 <del>?</del> 165 <del>?</del> LC- no vb/cramping.CRL 19.3 on handheld. will obtain formal us this week for hx of PCOS. 01/24/23 <del>?</del> 13w 3d 251 lb 6 oz 122/76 Negative <del>?</del> Negative 155 <del>?</del> SM- no vb cramping 02/20/23 <del>?</del> 17w 2d 252 lb 4 oz 127/80 Negative <del>?</del> Negative 150 <del>?</del> KW-no vb/cramping. + flutters. US scheduled for 03/09. recommended magnesium and tylenol for headaches. Starting a cold, requesting albuterol inhaler. 03/19/23 <del>?</del> 21w 1d 257 lb 4 oz 123/77 Negative <del>?</del> Negative 137 21 <del>?</del> LC- no vb/cramping. +flutters. vocalizing desires for c/s due to macrosomia and 3rd degree laceration with tubal ligation. LC- no vb/cramping. +flutters. vocalizing desires for c/s due to macrosomia and 3rd degree laceration with tubal ligation. 04/16/23 <del>?</del> 25w 1d 258 lb 8 oz 138/74 Negative <del>?</del> Negative 125 25 <del>?</del> LC- no vb/ctx/lof. great fm. desires PP tubal and discussed obtaining 36 weeks growth with iol at 39 weeks, desires this instead of c/s for 3rd degree lac hx. 28 week labs ordered. 05/07/23 <del>?</del> 28w 1d 262 lb 4 oz 126/84 Negative <del>?</del> Negative 134 28 <del>?</del> MH-No Vb, LOF. Good FM. 28 wk labs. Tdap, flu, larc. 05/21/23 <del>?</del> 30w 1d 266 lb 115/76 <del>?</del> 135 31 <del>?</del> JV- no complaints. last growth scan was 98th%. has h/o 10 pound baby delivery at 41 weeks with 3rd degree tear. rpt growth at 36 weeks 06/04/23 <del>?</del> 32w 1d 268 lb 6 oz 123/73 Negative <del>?</del> Negative 156 33 <del>?</del> JV- pt wishes to have a remote from delivery bilateral salpingectomy. title 19 signed today. No other complaints. 06/18/23 <del>?</del> 34w 1d 270 lb 124/78 Negative <del>?</del> Negative 135 34 <del>?</del> LC- no vb/ctx/lof. good fm. increased yellow discharge- genital cx obtained. LC- no vb/ctx/lof. good fm. increased yellow discharge- genital cx obtained. rapid bv neg. 07/01/23 <del>?</del> 36w 0d 276 lb 6 oz 137/82 Negative <del>?</del> Negative 142 38 Cephalic 3 <del>?</del> 80 -2 -1 KW- no vb/lof/ctx. good fm. GBS today. Growth US-tomorrow. increased pelvic pressure. NST FHR Rate Baby A Baseline: 140 Variability:: Moderate Accelerations:: 15 x 15 Decelerations:: None NST Reactive:: Yes FHR Category:: Category I Uterine Activity:: irregular. Assessment & Plan (1) False labor: COMMENT: no change in cervical dilation with spacing out contractions and less painful. safe for d/c home PLAN: Patient presents for triage evaluation secondary to contractions. FHT: Moderate variability reactive no decelerations category I tracing Corn: irregular Contractions Assessment and plan: Reactive NST, reassuring maternal and status patient discharged to home to follow-up in friday. See problem list details for additional plan information. Charges/Coding Procedures Urinary/Genital [id number]: [id number] non-stress test Interp
== END 2023-07-04 21:15 | disposition home or self-care (01) ==
LOC: WPOUT 19:30 → WP 19:30
PROVIDERS: PCP Family Medicine; Referring Provider Registered Nurse; Visit Provider Registered Nurse
DX: O47.03 False labor before 37 completed weeks of gestation, third trimester (principal); Z3A.36 36 weeks gestation of pregnancy; J45.909 Unspecified asthma, uncomplicated; O99.513 Diseases of the respiratory system complicating pregnancy, third trimester
CPT/HCPCS: 59025; 59050; 99221; G0378

== ENCOUNTER 2023-07-06 08:50 | Outpatient (CLI) | payer MEDICAID, SELFPAY ==
[2023-07-06] VITALS (9 sets, daily range): BP systolic 132–150; BP diastolic 75–81; PULSE 93–115; TEMP 36.2; O2SAT 98; BMI 43.4
--- OUTSIDE RECORDS SUMMARY | 2023-07-06 08:58 | XMS RPT_ITS | CCD ---
Author Name Unknown Address [address] [place] [address] Organization [facility] Care Team Providers Care Greenhouse Manager Name Role Phone ULI ALVAREZ MD Primary [...] Drug Class(es) Dates Sig (Normalized) Sig (Original) [id number] 200 actuat albuterol 0.09 mg/actuat metered dose [...] 16:06-0400 Body height 170.2 cm Yusuf Gan [employer] Work Phone: [employer] 10-07-2022 16:06-0400 Body mass index (BMI) [Ratio] 40.1 kg/m2 Yusuf Bettencourtezequielyunier [employer] Work Phone: [employer] 10-07-2022 16:06-0400 Body temperature 97.11 [degF] Yusuf Bettencourtezequielyunier [employer] Work Phone: [employer] 10-07-2022 16:06-0400 Body weight 116.12 kg Yusuf Bettencourtremberto [employer] Work Phone: [employer] 10-07-2022 16:06-0400 Diastolic blood pressure 69 mm[Hg] Yusuf Bettencourtremberto [employer] Work Phone: [employer] 10-07-2022 16:06-0400 Heart rate 72 /min Yusuf Gan DO Work Phone: [facility] 10-07-2022 16:06-0400 SaO2% (BldA) [Mass fraction] 99 % Yusuf Gan DO Work Phone: [facility] 10-07-2022 16:06-0400 Systolic blood pressure 108 mm[Hg] Yusuf Gan DO Work Phone: [facility] 08-16-2022 07:41-0500 Body temperature 98.1 [degF] [...] height 170.[address] HAMIDA GASTON MD [facility] 04-02-2022 21:02-0400 Body temperature 98.78 [degF] DR HAMIDA GASTON MD [facility] 04-02-2022 21:02-0400 Body weight 113.[address] HAMIDA GASTON MD [facility] 04-02-2022 21:02-0400 Diastolic blood pressure 84 mm[Hg] DR HAMIDA GASTON MD [facility] 04-02-2022 21:02-0400 Heart rate 82 /min DR HAMIDA GASTON MD [facility] 04-02-2022 21:02-0400 Respiratory rate 18 /min DR HAMIDA GASTON MD [facility] 04-02-2022 21:02-0400 Systolic blood pressure 131 mm[Hg] DR HAMIDA GASTON MD [facility] Encounters Encounter Date Encounter Type Care Provider Facility Start: 03-10-2023 End: 03-10-[address] [facility] Start: 10-07-2022 End: 10-07-2022 ambulatory YUSUF GAN [facility] Start: 10-07-2022 End: 10-07-2022 Office outpatient visit 15 minutes Yusuf Gan DO Work Phone: [facility] Family Medicine Procedures Date Procedure Procedure Detail Performing Clinician Start: 08-16-2022 STREP A MOLECULAR (POC) Estevan Medina PA Work Phone: None (qualifier value) DR ROSALIO GASTON MD Plan of Treatment Date Care Activity Detail Author Start: 2046 Zoster Vaccines (1 of 2) Zoste r Vaccines (1 of 2) [facility] Start: 06-17-2032 DTaP/Tdap/Td Vaccine s (9 - Td or Tdap) DTaP/Tdap/Td Vaccines (9 - Td or Tdap) [facility] Start: 04-09-2023 End: 04-09-2023 Patient encounter procedure 04/09/2023 Office Visit Family Medicine Yusuf Gan DO [address] [place] [address] [facility] Start: 02-07-2023 Influenza vaccination Influenz a Vaccine (Season Ended) [facility] Start: 06-09-2022 DEPRESSION ASSESSMENT DEPRESSION ASS ESSMENT [facility] Start: 02-07-2022 Influenza vaccination INFLUENZA (#1) [facility] Start: 2017 PAP TESTING PAP TESTING [facility] Start: 2017 Screening for malign ant neoplasm of cervix Pap Smear [facility] Start: 2015 Urine microalbumin profile DTAP,TDAP,TD (1 - Tdap) [facility] Start: 2014 HEPATITIS C SCREENING HEPATITIS C [facility] Start: 2014 Hepatitis C screening Hepatitis C [facility] Start: 2014 HIV SCREENING HIV SCREENING [facility] Start: 2010 PEDS TO ADULT [...] (1 of 2 - 2-dose childhood series) [facility] Start: 01-10-1997 COVID-19 VACCINE (#1) COVID-19 VACCI NE (#1) [facility] Start: 1996 HEPATITIS B (1 of 3 - 3-dose series) HEPATITIS B (1 of 3 - 3-dose series) [facility] Start: 1996 HIV screening HIV Screening [facility] Immunizations Immunization Date Immunization Notes Care Provider Fa cility 06-17-2022 tetanus toxoid, redu tiffanie diphtheria toxoid, and acellular pertussis vaccine, adsorbed Yusuf Gan DO Work Phone: [facility] 04-16-2018 tetanus toxoid, redu tiffanie diphtheria toxoid, and acellular pertussis vaccine, adsorbed Yusuf Gan DO Work Phone: [facility] 07-30-2013 human papilloma viru s vaccine, quadrivalent Yusuf Gan DO Work Phone: [facility] 03-29-2013 human papilloma viru s vaccine, quadrivalent Yusuf aGn DO Work Phone: [facility] 01-20-2013 HPV, unspecified formulation Yusuf Gan DO Work Phone: [facility] 01-20-2013 meningococcal polysaccharide (groups A, C, Y and W-135) diphtheria toxoid conjugate vaccine (MCV4P) Yusuf Gan DO Work Phone: [facility] 01-20-2013 tetanus toxoid, redu tiffanie diphtheria toxoid, and acellular pertussis vaccine, adsorbed Yusuf Gan DO Work Phone: [facility] 01-19-2002 diphtheria, tetanus toxoids and acellular pertussis vaccine, unspecified formulation Yusuf Gan DO Work Phone: [facility] 01-19-2002 measles, mumps and r ubella virus vaccine Yusuf Gan DO Work Phone: [facility] 01-19-2002 poliovirus vaccine, inactivated Yusuf Gan DO Work Phone: [facility] 11-08-1997 diphtheria, tetanus toxoids and acellular pertussis vaccine, unspecified formulation Yusuf Gan DO Work Phone: [facility] 11-08-1997 haemophilus influenz ae type b vaccine, PRP-T conjugate Yusuf Gan DO Work Phone: [facility] 11-08-1997 measles, mumps and r ubella virus vaccine Yusuf Gan DO Work Phone: [facility] 04-04-1997 hepatitis B vaccine, pediatric or pediatric/adolescent dosage Yusuf Gan DO Work Phone: [facility] 04-04-1997 trivalent poliovirus vaccine, live, oral Yusuf Gan DO Work Phone: [facility] 01-10-1997 diphtheria, tetanus toxoids and pertussis vaccine Yusuf Gan DO Work Phone: [facility] 01-10-1997 haemophilus influenz ae type b vaccine, PRP-T conjugate Yusuf Gan DO Work Phone: [facility] 1996 diphtheria, tetanus toxoids and pertussis vaccine Yusuf Rutlla DO Work Phone: [facility] 1996 haemophilus influenz ae type b vaccine, PRP-T conjugate Yusuf Gan DO Work Phone: [facility] 1996 trivalent poliovirus vaccine, live, oral Yusuf Jimeneza DO Work Phone: [facility] 1996 diphtheria, tetanus toxoids and pertussis vaccine Yusuf Bettencourtlla DO Work Phone: [facility] 1996 haemophilus influenz ae type b vaccine, PRP-T conjugate Yusuf Gan DO Work Phone: [facility] 1996 hepatitis B vaccine, pediatric or pediatric/adolescent dosage Yusuf Gan DO Work Phone: [facility] 1996 trivalent poliovirus vaccine, live, oral Yusuf Gan DO Work Phone: [facility] 1996 hepatitis B vaccine, pediatric or pediatric/adolescent dosage Yusuf Bettencourtlla DO Work Phone: [facility] Payers Date Payer Category Payer Medicaid [id number] 2022 Unknown [id number] 1996 Unknown [id number] 1996 Unknown [id number] Social History Date Type Detail Facility Start: 08-16-2022 Tobacco smoking status Never s moked tobacco (finding) [facility] Start: 1996 Sex Assigned At Female A [facility] Start: 08-16-2022 Tobacco use and exposure Smokeless tobacco non-user [facility] Start: 1996 Sex Assigned At Not on file [facility] Tobacco smoking stat us ARIS Ex-smoker [facility] End: 06-13-2020 History of tobacco use Current smoker [facility] End: 06-13-2020 History of tobacco use Cigarette Smoker [facility] Start: 10-07-2022 Alcohol intake Current drinke r of alcohol (finding) [facility] Start: 09-27-2022 End: 10-07-2022 Exposure to SARS-CoV-2 (event) Not sure [facility] Functional Status Date Assessment Result Facility 04-02-2022 Functional Status Independent [facility] Mental Status Date Assessment Result Facility 04-02-2022 Mental Status Orientation Oriented x 4 [facility] Clinical Notes 04-02-2022 to 10-07-2022 Yusuf Gan DO - 10/07/2022 4:00 PM EDTPatient KARINA Flores - 08/16/2022 7:49 AM EST Note Date & Type Note Facility 10-07-2022 History of Present illness Narrative Images from the original note were not included. [facility] [address] [place] [id number] Visit type: Established Patient Reason for Visit: [...] She does feel the Lexapro is helpful. 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 documented in this encounter [facility] 08-16-2022 Note HNO ID: [id number] Author: KARINA Lim Service: ? Author Type: Physician Office Sweeper Type: Progress Notes Filed: 08/16/2022 8:10 AM Note Text: This note was created using [employer]. Subjective Shakira Izquierdo is a 27 year old female. HPI 27-year-old female presents for sore throat and congestion. Patient has had a sore throat for the past 2 to 3 days. She has had congestion and postnasal drainage. 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 KARINA Lim [facility] 08-16-2022 Instructions AKRINA Lim - 08/16/2022 8:04 AM EST PHARYNGITIS [...] illness Narrative This note was created using [employer]. Subjective Shakira Izquierdo is a 27 year old female. HPI 27-year-old female presents for sore throat and congestion. Patient has had a sore throat for the past 2 to 3 days. She has had congestion and postnasal drainage. 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, [address] [place] [address], [address] , [facility] ([place]) 04-02-2022 Hospital Discharge instructions Patient Education 04/02/2022 [...] Hold for 2 seconds, then slowly lower. 9510-6579 [employer]. [address] [place] [address]. All rights reserved. This information is not [...] are taking other medicines. You may use idtv-zoh-wnuzxuy medicines such as acetaminophen, ibuprofen, or naprosyn [...] Chills Burning or pain when passing urine 2847-1535 [employer]. [address] [place] [address]. All rights reserved. This information is not intended as a substitute for professional medical care. Always follow your healthcare professional's instructions. Follow Up Care 04/02/2022 20:49:18 With:ULI ALVAREZ MD Address: [facility] [address] [place] [address]- When:2-4 days Comments:If no improvement [facility] 04-02-2022 Note Discharge Instructions Thank you for allowing [facility] to assist you with your healthcare needs. [...] 2-4 days Why: If no improvement Where: [id number] [place] [address]- Allergies NKA Medications Please ask your primary [...] may report side effects to FDA at 2-348-XLJ-1412. What other drugs will affect tizanidine? Taking [...] drugs may affect tizanidine, including prescription and uksc-ozt-afjaqpc medicines, vitamins, and herbal products. Not all [...] to ensure that the information provided by [employer]. ('[employer]') is accurate, up-to-date, and complete, but no guarantee is made to that effect. Drug information contained herein may be time sensitive. [employer] information has been compiled for use by healthcare practitioners and consumers in the [place] and therefore [employer] does not warrant that uses outside of the [place] are appropriate, unless specifically indicated otherwise. [employer] drug information does not endorse drugs, diagnose patients or recommend therapy. [employer] drug information is an informational resource designed [...] effective or appropriate for any given patient. [employer] does not assume any responsibility for any aspect of healthcare administered with the aid of information Side[employer] provides. The information contained herein is not intended to cover all possible uses, directions, precautions, warnings, drug interactions, allergic reactions, or adverse effects. If you have questions about the drugs you are taking, check with your doctor, nurse or pharmacist. Copyright 4729-2577 [employer]. Version: 4.01. Revision Date: 08/14/2020. ibuprofen (EYE [...] may report side effects to FDA at 5-021-IXM-8260. What other drugs will affect ibuprofen? Ask [...] drugs may affect ibuprofen, including prescription and bjet-zkl-sqnneyo medicines, vitamins, and herbal products. Not all [...] to ensure that the information provided by [employer]. ('[employer]') is accurate, up-to-date, and complete, but no guarantee is made to that effect. Drug information contained herein may be time sensitive. Sidecar information has been compiled for use by healthcare practitioners and consumers in the [place] and therefore [employer] does not warrant that uses outside of the [place] are appropriate, unless specifically indicated otherwise. [employer] drug information does not endorse drugs, diagnose patients or recommend therapy. [employer] drug information is an informational resource designed [...] effective or appropriate for any given patient. [employer] does not assume any responsibility for any aspect of healthcare administered with the aid of information Side[employer] provides. The information contained herein is not intended to cover all possible uses, directions, precautions, warnings, drug interactions, allergic reactions, or adverse effects. If you have questions about the drugs you are taking, check with your doctor, nurse or pharmacist. Copyright 8171-9021 [employer]. Version: 22.01. Revision Date: 05/03/2020. Education Materials [...] Hold for 2 seconds, then slowly lower. 1399-24[address] [employer]. [address] [place] [address], [place] [address]. All rights reserved. This information is not [...] are taking other medicines. You may use tafc-gzp-ckgnjpc medicines such as acetaminophen, ibuprofen, or naprosyn [...] Chills Burning or pain when passing urine 3972-0221 [employer]. [address] [place] [address]. All rights reserved. This information is not intended as a substitute for professional medical care. Always follow your healthcare professional's instructions. Additional Information VACCINATE! IT SAVES LIVES! Members of the community who have not yet received the COVID-19 vaccine and would like to receive it can visit one of [facility] vaccine clinics. There are many vaccine clinic locations within the [facility]. For locations and available times, please visit [email or web address]. It is important to note that some COVID mobile vaccine clinics are held outdoors and may be canceled in rainy or stormy conditions. To learn more about pediatric vaccinations (ages 5-11), we invite you to visit the [facility] webpage. [email or web address] To learn more about the COVID-19 vaccine, we invite you to visit the [facility] website for a list of frequently asked questions. [email or web address] [email or web address] [facility] Patient Portal Access Instructions: Stay connected with your healthcare team and access your personal medical information anytime with the [facility] Patient Portal. If you would like a full copy of your medical records please contact the [facility] Medical Records Department Friday through Friday between 8a.m. and 4:30p.m. Please follow the directions below to access the portal: 1.Access the email account you provided upon registration to the [facility].2.Look for an invitation email from [facility].3.Open the email and access the invitation link: Accept Invitation to [facility]4.Fill in the required cantrell to create your account. Sign into www.[employer] with your username and password that you [...] you will allow to register on the [facility] Patient Portal for access to your information. You can also access the [facility] Patient Portal on the [employer] stefano. Simply click on Health Records under [...] Call your local pharmacy or go to [email or web address] to find one close to you.3.Make use of household items: Use cat litter or old coffee grounds to dispose medications if other options are not available. Mix your drugs with these household products, seal them in an airtight container and throw it into the garbage. Call [facility]: [phone] to be sure your drugs can be [...] aware that I should contact my doctor. 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 Tender Signature: Date/Time: Relationship to Patient: ____ Witness Name/Signature: Date/Time: [facility] 04-02-2022 Evaluation + Plan note Diagnostic Tests PendingUrine Culture 04/02/22 [facility] Mild episode of recurrent major depressive disorder (HCC)- Primary Acute non-recurrent frontal sinusitis documented in [facility] Narrative No data available for this section [facility] Summary Purpose Family History No [...] Member Role: Primary Care Physician Address: Address: [facility] [address] [place] [address]- Name: HAMIDA GASTON MD Position: ED Physician Member Role: ED Physician Address: Address: [address] [place] [address] Name: Kerrie Gaston RN Position: AO RN Member Role: RN Care Team Related Persons Name: ALICIA ACEVEDO Address: [address] [place] [address] [place] Name: ALICIA ACEVEDO Address: [address] [place] [address] [place] Name: ALICIA ACEVEDO Address: [address] [place] [address] [place] Name: ALICIA ACEVEDO Address: [address] [place] [address] [place] Name: ALICIA ACEVEDO Address: [address] [place] [address] [place] Name: ALICIA ACEVEDO Address: Home [address] [place], [place] [address] [address] Name: ALICIA ACEVEDO Address: Home [address] [place], [place] [address] [address] [place] Name: ALICIA ACEVEDO Address: Home [address] [place], [place] [address] [address] [place] Name: ALICIA ACEVEDO Address: Home [address] [place], [place] [address] [place] [id number] [place] Name: ALICIA ACEVEDO Address: Home [address] [place], [place] [address] [place] [id number] Name: ALICIA ACEVEDO Address: Home [address] [place] [phone] [place] Address: Temporary [address] [place], [place] [id number] Name: ALICIA ACEVEDO Address: Home [address] [place] [phone] [place] Address: Temporary [address] [place], [place] [id number] Name: KENNETH KOEHLER Address: Home [address] [place] [id number] INFORMATION SOURCE (unrecogn ized section and content) DATE CREATED AUTHOR AUTHOR'S ORGANIZ ATION 08/17/2022 [facility] DATE CREATED AUTHOR AUTHOR'S ORGANIZ ATION 10/09/2022 [facility] DATE CREATED AUTHOR AUTHOR'S ORGANIZ ATION 03/15/2023 [facility] Source Comments (unrecognize d section and [...] Care Teams (unrecognized sec tion and content) Greenhouse Manager Relationship Specialty Start Date End Date Yusuf Gan Kadie, DO [address] [place] [address] PCP - General 12/22/20 FOR RECORDS PERTAINING [...] BE BASED ON THE PRIMARY CLINICAL RECORDS. [facility] [employer] [facility]. provides no warranty or guarantee of the accuracy or completeness of information in this document.
--- OUTSIDE RECORDS SUMMARY | 2023-07-06 08:59 | XMS RPT_ITS | CCD ---
Author Name Unknown Address [address] [place] [address] Organization [facility] Care Team Providers Care Yarn Preparation Supervisor Name Role Phone ULI ALVAREZ MD Primary Care Physician [phone] MEI Attending Unavaila ULI Douglas Primary Care Unavailable Yusuf Gan Primary Care Provider YUSUF GAN Primary Care Unavailable Yusuf Gan DO Primary Care Provider [phone] YUSUF GAN Attending Unavailable YUSUF GAN Primary [...] Drug Class(es) Dates Sig (Normalized) Sig (Original) [id number] 200 actuat albuterol 0.09 mg/actuat metered dose [...] 16:06-0400 Body height 170.2 cm Yusuf Gan 51wan Work Phone: [facility] 10-07-2022 16:06-0400 Body mass index (BMI) [Ratio] 40.1 kg/m2 Yusuf Bettencourtezequielyunier 51wan Work Phone: [facility] 10-07-2022 16:06-0400 Body temperature 97.11 [degF] Yusuf Bettencourtezequielyunier 51wan Work Phone: [facility] 10-07-2022 16:06-0400 Body weight 116.12 kg Yusuf Bettencourtremberto 51wan Work Phone: [facility] 10-07-2022 16:06-0400 Diastolic blood pressure 69 mm[Hg] Yusuf Bettencourtremberto 51wan Work Phone: [facility] 10-07-2022 16:06-0400 Heart rate 72 /min Yusuf Gan DO Work Phone: [facility] 10-07-2022 16:06-0400 SaO2% (BldA) [Mass fraction] 99 % Yusuf Gan DO Work Phone: [facility] 10-07-2022 16:06-0400 Systolic blood pressure 108 mm[Hg] Yusuf Gan DO Work Phone: [facility] 08-16-2022 07:41-0500 Body temperature 98.1 [degF] Krislyn Aberegg PA Work Phone: [facility] 08-16-2022 07:41-0500 Body weight 112.58 kg Krislyn Aberegg PA Work Phone: [facility] 08-16-2022 07:41-0500 Diastolic blood pressure 76 mm[Hg] Krislyn Aberegg PA Work Phone: [facility] 08-16-2022 07:41-0500 Heart rate 111 /min Krislyn Aberegg PA Work Phone: [facility] 08-16-2022 07:41-0500 Respiratory rate 18 /min Krislyn Aberegg PA Work Phone: [facility] 08-16-2022 07:41-0500 SaO2% (BldA) [Mass fraction] 99 % Krislyn Aberegg PA Work Phone: [facility] 08-16-2022 07:41-0500 Systolic blood pressure 132 mm[Hg] Krislyn Aberegg PA Work Phone: [facility] 04-02-2022 21:02-0400 Body height 170.[address] HAMIDA GASTON MD [facility] 04-02-2022 21:02-0400 Body temperature 98.78 [degF] DR HAMIDA GASTON MD [facility] 04-02-2022 21:02-0400 Body weight 113.[address] HAMIDA GASTON MD [facility] 04-02-2022 21:02-0400 Diastolic blood pressure 84 mm[Hg] DR HAMIDA GASTON MD [facility] 04-02-2022 21:02-0400 Heart rate 82 /min DR HAMIDA GASTON MD [facility] 04-02-2022 21:02-0400 Respiratory rate 18 /min DR HAMIDA GASTON MD [facility] 04-02-2022 21:02-0400 Systolic blood pressure 131 mm[Hg] DR HAMIDA GASTON MD [facility] Encounters Encounter Date Encounter Type Care Provider Facility Start: 03-10-2023 End: 03-10-2023 ambulatory PRIMARY CARE [facility] Start: 10-07-2022 End: 10-07-2022 ambulatory YUSUF GAN [facility] Start: 10-07-2022 End: 10-07-2022 Office outpatient visit 15 minutes Yusuf Gan DO Work Phone: [facility] Procedures Date Procedure Procedure Detail Performing Clinician Start: 08-16-2022 STREP A MOLECULAR (POC) Estevan Medina PA Work Phone: None (qualifier value) DR ROSALIO GASTON MD Plan of Treatment Date Care Activity Detail Author Start: 2046 Zoster Vaccines (1 of 2) Zoste r Vaccines (1 of 2) [facility] Start: 06-17-2032 DTaP/Tdap/Td Vaccine s (9 - Td or Tdap) DTaP/Tdap/Td Vaccines (9 - Td or Tdap) [facility] Start: 04-09-2023 End: 04-09-2023 Patient encounter procedure 04/09/2023 Office Visit Family Medicine Yusuf Gan DO [address] [place] [id number] [facility] Start: 02-07-2023 Influenza vaccination Influenz a Vaccine (Season Ended) [facility] Start: 06-09-2022 DEPRESSION ASSESSMENT DEPRESSION ASS ESSMENT [facility] Start: 02-07-2022 Influenza vaccination INFLUENZA (#1) [facility] Start: 2017 PAP TESTING PAP TESTING [facility] Start: 2017 Screening for malign ant neoplasm of cervix Pap Smear [facility] Start: 2015 Urine microalbumin profile DTAP,TDAP,TD (1 - Tdap) [facility] Start: 2014 HEPATITIS C SCREENING HEPATITIS C [facility] Start: 2014 Hepatitis C screening Hepatitis C [facility] Start: 2014 HIV SCREENING HIV [facility]CRE[facility] Start: 2010 PEDS TO ADULT TRANSI TION ANNUAL ASSESSMENT PEDS TO ADULT TRANSITION ANNUAL ASSESSMENT [facility] Start: 2008 PEDS TO ADULT TRANSI TION INITIAL DISCUSSION PEDS TO ADULT TRANSITION INITIAL DISCUSSION [facility] Start: 2007 HPV VACCINE (1 - 2-d ose series) HPV VACCINE (1 - 2-dose series) [facility] Start: 02-16-2002 Varicella vaccination Varicell a Vaccines (1 of 2 - 2-dose childhood series) [facility] Start: 01-10-1997 COVID-19 VACCINE (#1) COVID-19 VACCI NE (#1) [facility] Start: 1996 HEPATITIS B (1 of 3 - 3-dose series) HEPATITIS B (1 of 3 - 3-dose series) [facility] Start: 1996 HIV screening HIV Screening [facility] Immunizations Immunization Date Immunization Notes Care Provider Fa cility 06-17-2022 tetanus toxoid, redu tiffanie diphtheria toxoid, and acellular pertussis vaccine, adsorbed Yusuf Gan DO Work Phone: [facility] 04-16-2018 tetanus toxoid, redu tiffanie diphtheria toxoid, and acellular pertussis vaccine, adsorbed Yusuf Gan DO Work Phone: [facility] 07-30-2013 human papilloma viru s vaccine, quadrivalent Yusuf Gan DO Work Phone: [facility] 03-29-2013 human papilloma viru s vaccine, quadrivalent Yusuf Gan DO Work Phone: [facility] 01-20-2013 HPV, unspecified formulation Yusuf Gan DO Work Phone: [facility] 01-20-2013 meningococcal polysaccharide (groups A, C, Y and W-135) diphtheria toxoid conjugate vaccine (MCV4P) Yusuf Gan DO Work Phone: [facility] 01-20-2013 tetanus toxoid, redu tiffanie diphtheria toxoid, and acellular pertussis vaccine, adsorbed Yusuf Gan DO Work Phone: [facility] 01-19-2002 diphtheria, tetanus toxoids and acellular pertussis vaccine, unspecified formulation Yusuf Gan DO Work Phone: [facility] 01-19-2002 measles, mumps and r ubella virus vaccine Yusuf Gan DO Work Phone: [facility] 01-19-2002 poliovirus vaccine, inactivated Yusuf Gan DO Work Phone: [facility] 11-08-1997 diphtheria, tetanus toxoids and acellular pertussis vaccine, unspecified formulation Yusuf Gan DO Work Phone: [facility] 11-08-1997 haemophilus influenz ae type b vaccine, PRP-T conjugate Yusuf Gan DO Work Phone: [facility] 11-08-1997 measles, mumps and r ubella virus vaccine Yusuf Gan DO Work Phone: [facility] 04-04-1997 hepatitis B vaccine, pediatric or pediatric/adolescent dosage Yusuf Gan DO Work Phone: [facility] 04-04-1997 trivalent poliovirus vaccine, live, oral Yusuf Gan DO Work Phone: [facility] 01-10-1997 diphtheria, tetanus toxoids and pertussis vaccine Yusuf Gan DO Work Phone: [facility] 01-10-1997 haemophilus influenz ae type b vaccine, PRP-T conjugate Yusuf Gan DO Work Phone: [facility] 1996 diphtheria, tetanus toxoids and pertussis vaccine Yusuf Rutlla DO Work Phone: [facility] 1996 haemophilus influenz ae type b vaccine, PRP-T conjugate Yusuf Gan DO Work Phone: [facility] 1996 trivalent poliovirus vaccine, live, oral Yusuf Jimeneza DO Work Phone: [facility] 1996 diphtheria, tetanus toxoids and pertussis vaccine Yusuf Bettencourtlla DO Work Phone: [facility] 1996 haemophilus influenz ae type b vaccine, PRP-T conjugate Yusuf Gan DO Work Phone: [facility] 1996 hepatitis B vaccine, pediatric or pediatric/adolescent dosage Yusuf Gan DO Work Phone: [facility] 1996 trivalent poliovirus vaccine, live, oral Yusuf aGn DO Work Phone: [facility] 1996 hepatitis B vaccine, pediatric or pediatric/adolescent dosage Yusuf Bettencourtlla DO Work Phone: [facility] Payers Date Payer Category Payer Medicaid [id number] 2022 Unknown [id number] 1996 Unknown [id number] 1996 Unknown [id number] Social History Date Type Detail Facility Start: 08-16-2022 Tobacco smoking status Never s moked tobacco (finding) [facility] Start: 1996 Sex Assigned At Female A [facility] Start: 08-16-2022 Tobacco use and exposure Smokeless tobacco non-user [facility] Start: 1996 Sex Assigned At Not on file C [facility] Tobacco smoking stat us NJIS Ex-smoker [facility] End: 06-13-2020 History of tobacco use Current smoker [facility] End: 06-13-2020 History of tobacco use Cigarette Smoker [facility] Start: 10-07-2022 Alcohol intake Current drinke r of alcohol (finding) [facility] Start: 09-27-2022 End: 10-07-2022 Exposure to SARS-CoV-2 (event) Not sure [facility] Functional Status Date Assessment Result Facility 04-02-2022 Functional Status Independent [facility] Mental Status Date Assessment Result Facility 04-02-2022 Mental Status Orientation Oriented x 4 [facility] Clinical Notes 04-02-2022 to 10-07-2022 Yusuf Gan DO - 10/07/2022 4:00 PM EDTPatient KARINA Flores - 08/16/2022 7:49 AM EST Note Date & Type Note Facility 10-07-2022 History of Present illness Narrative Images from the original note were not included. [facility] [address] [place] [id number] Visit type: Established Patient Reason for Visit: [...] She does feel the Lexapro is helpful. 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 documented in this encounter [facility] 08-16-2022 Note HNO ID: [id number] Author: KARINA Lim Service: ? Author Type: Physician Line Construction Engineer Type: Progress Notes Filed: 08/16/2022 8:10 AM Note Text: This note was created using Bazari. Subjective Shakira Izquierdo is a 27 year old female. HPI 27-year-old female presents for sore throat and congestion. Patient has had a sore throat for the past 2 to 3 days. She has had congestion and postnasal drainage. 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 KARINA Lim [facility] 08-16-2022 Instructions KARINA Lim - 08/16/2022 [...] urine. Chest pain. documented in this encounter [facility] 08-16-2022 History of Present illness Narrative This note was created using Medical Connectionsriter. Subjective Shakira Izquierdo is a 27 year old female. HPI 27-year-old female presents for sore throat and congestion. Patient has had a sore throat for the past 2 to 3 days. She has had congestion and postnasal drainage. 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 KARINA Lim documented in this encounter [facility] 04-04-2022 Note . MICRO - Microbiology PROCEDURE: Urine Culture [*1] SOURCE: Urine BODY SITE: COLLECTED DATE/TIME: 04/02/2022 21:01 EDT RECEIVED DATE/TIME: 04/03/2022 14:26 EDT START DATE/TIME: 04/03/2022 14:26 EDT FREE TEXT SOURCE: FINAL REPORTS Final Report [] Verified Date/Time/Personnel: 04/04/2022 14:22 EDT 10,000 - 50,000 cfu/ml Mixed growth consistent with normal urogenital cherie. Performing Locations *1: This test was performed at: [facility], [address] [place] [address], [phone]- , [facility] ([place]) 04-02-2022 Hospital Discharge instructions Patient Education 04/02/2022 [...] Hold for 2 seconds, then slowly lower. 2846-[address] [employer] [place] [address]. All rights reserved. This information is not [...] are taking other medicines. You may use gpyb-rur-tbmxmnh medicines such as acetaminophen, ibuprofen, or naprosyn [...] Chills Burning or pain when passing urine 4638-2009 [employer]. [address] [place] [address]. All rights reserved. This information is not intended as a substitute for professional medical care. Always follow your healthcare professional's instructions. Follow Up Care 04/02/2022 20:49:18 With:ULI ALVAREZ MD Address: [facility] [address] [place] [address]- When:2-4 days Comments:If no improvement [facility] 04-02-2022 Note Discharge Instructions Thank you for allowing [facility] to assist you with your healthcare needs. [...] 2-4 days Why: If no improvement Where: [id number] [place] [address]- Allergies NKA Medications Please ask your primary [...] may report side effects to FDA at 2-497-QYV-3077. What other drugs will affect tizanidine? Taking [...] drugs may affect tizanidine, including prescription and yqml-aem-usdqzwl medicines, vitamins, and herbal products. Not all [...] to ensure that the information provided by [employer]. ('[employer]') is accurate, up-to-date, and complete, but no guarantee is made to that effect. Drug information contained herein may be time sensitive. [employer] information has been compiled for use by healthcare practitioners and consumers in the [place] and therefore [employer] / [employer] does not warrant that uses outside of the [place] are appropriate, unless specifically indicated otherwise. [employer] drug information does not endorse drugs, diagnose patients or recommend therapy. [employer] drug information is an informational resource designed [...] effective or appropriate for any given patient. [employer] does not assume any responsibility for any aspect of healthcare administered with the aid of information [employer] / [employer] provides. The information contained herein is not intended to cover all possible uses, directions, precautions, warnings, drug interactions, allergic reactions, or adverse effects. If you have questions about the drugs you are taking, check with your doctor, nurse or pharmacist. Copyright 9449-3798 [employer]. Version: 4.01. Revision Date: 08/14/2020. ibuprofen (EYE [...] may report side effects to FDA at 9-212-RYA-5288. What other drugs will affect ibuprofen? Ask [...] drugs may affect ibuprofen, including prescription and xowi-vrd-mdsbaup medicines, vitamins, and herbal products. Not all [...] to ensure that the information provided by [employer]. ('[employer]') is accurate, up-to-date, and complete, but no guarantee is made to that effect. Drug information contained herein may be time sensitive. [employer] information has been compiled for use by healthcare practitioners and consumers in the [place] and therefore [employer] / [employer] does not warrant that uses outside of the [place] are appropriate, unless specifically indicated otherwise. [employer] drug information does not endorse drugs, diagnose patients or recommend therapy. [employer] drug information is an informational resource designed [...] effective or appropriate for any given patient. [employer] does not assume any responsibility for any aspect of healthcare administered with the aid of information [employer] / [employer] provides. The information contained herein is not intended to cover all possible uses, directions, precautions, warnings, drug interactions, allergic reactions, or adverse effects. If you have questions about the drugs you are taking, check with your doctor, nurse or pharmacist. Copyright 4183-7805 [employer]. Version: 22.01. Revision Date: 05/03/2020. Education Materials [...] Hold for 2 seconds, then slowly lower. 7458-25[address] [employer]. [address] [place] [address], [place] [address]. All rights reserved. This information is not [...] are taking other medicines. You may use acwf-kbq-snncthi medicines such as acetaminophen, ibuprofen, or naprosyn [...] Chills Burning or pain when passing urine 6117-9271 [employer]. [address] [place] [address]. All rights reserved. This information is not intended as a substitute for professional medical care. Always follow your healthcare professional's instructions. Additional Information VACCINATE! IT SAVES LIVES! Members of the community who have not yet received the COVID-19 vaccine and would like to receive it can visit one of [facility] vaccine clinics. There are many vaccine clinic locations within the [facility]. For locations and available times, please visit [email or web address]. It is important to note that some COVID mobile vaccine clinics are held outdoors and may be canceled in rainy or stormy conditions. To learn more about pediatric vaccinations (ages 5-11), we invite you to visit the [facility] webpage. [email or web address] To learn more about the COVID-19 vaccine, we invite you to visit the [facility] website for a list of frequently asked questions. [email or web address] quently_[email or web address].pdf [facility] Patient Portal Access Instructions: Stay connected with your healthcare team and access your personal medical information anytime with the [facility] Patient Portal. If you would like a full copy of your medical records please contact the [facility] Medical Records Department Friday through Friday between 8a.m. and 4:30p.m. Please follow the directions below to access the portal: 1.Access the email account you provided upon registration to the [facility].2.Look for an invitation email from [facility].3.Open the email and access the invitation link: Accept Invitation to [facility]4.Fill in the required cantrell to create your account. Sign into www.[employer] with your username and password that you [...] you will allow to register on the [employer] Patient Portal for access to your information. You can also access the [employer] Patient Portal on the [facility] stefano. Simply click on Health Records under [...] Call your local pharmacy or go to [email or web address] to find one close to you.3.Make use of household items: Use cat litter or old coffee grounds to dispose medications if other options are not available. Mix your drugs with these household products, seal them in an airtight container and throw it into the garbage. Call [facility]: [phone] to be sure your drugs can be [...] aware that I should contact my doctor. 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 Signature: Date/Time: Relationship to Patient: ____ Witness Name/Signature: Date/Time: [facility] 04-02-2022 Evaluation + Plan note Diagnostic Tests PendingUrine Culture 04/02/22 [facility] Mild episode of recurrent major depressive disorder (HCC)- Primary Acute non-recurrent frontal sinusitis documented in this encounter [facility] Narrative No data available for this section [facility] Summary Purpose Family History No Family [...] Member Role: Primary Care Physician Address: Address: [facility] [address] [place] [address]- Name: HAMIDA GASTON MD Position: ED Physician Member Role: ED Physician Address: Address: [address] [place] [address] Name: Kerrie Gaston RN Position: AO RN Member Role: RN Care Team Related Persons Name: ALICIA ACEVEDO Address: [address] [place] [address] [place] Name: ALICIA ACEVEDO Address: [address] [place] [address] [place] Name: ALICIA ACEVEDO Address: [address] [place] [address] [place] Name: ALICIA ACEVEDO Address: [address] [place] [address] [place] Name: ALICIA ACEVEDO Address: [address] [place] [address] [place] Name: ALICIA ACEVEDO Address: Home [address] [place], [place] [address] [address] Name: ALICIA ACEVEDO Address: Home [address] [place], [place] [address] [address] [place] Name: ALICIA ACEVEDO Address: Home [address] [place], [place] [address] [address] [place] Name: ALICIA ACEVEDO Address: Home [address] [place], [place] [address] [place] [id number] [place] Name: ALICIA ACEVEDO Address: Home [address] [place], [place] [address] [place] [id number] Name: ALICIA ACEVEDO Address: Home [address] [place] [id number] [place] Address: Temporary [address] [place], [place] [id number] Name: ALICIA ACEVEDO Address: Home [address] [place] [id number] [place] Address: Temporary [address] [place], [place] [id number] Name: KENNETH KOEHLER Address: [address] [id number] INFORMATION SOURCE (unrecogn ized section and content) DATE CREATED AUTHOR AUTHOR'S ORGANIZ ATION 08/17/2022 [facility] DATE CREATED AUTHOR AUTHOR'S ORGANIZ ATION 10/09/2022 [facility] DATE CREATED AUTHOR AUTHOR'S ORGANIZ ATION 03/15/2023 [facility] Source Comments (unrecognize d section and content) In the event this informatio n is protected by the Federal Confidentiality of Alcohol and Drug Abuse Patient Records regulations: The Federal rules restrict any use of the information to criminally investigate or prosecute any alcohol or drug abuse patient.[facility] Reason for Visit (unrecogniz ed section and content) Reason Comments Follow-up Med check Sinus Problem Care Teams (unrecognized sec tion and content) Yarn Preparation Supervisor Relationship Specialty Start Date End Date Yusuf Gan Kadie, DO [address] [place] [address] PCP - General 12/22/20 FOR RECORDS PERTAINING [...] BE BASED ON THE PRIMARY CLINICAL RECORDS. [facility]. provides no warranty or guarantee of the accuracy or completeness of information in this document.
[2023-07-06] MEDS: Acetaminophen 500 MG Tablet 1000 MG PO (09:32)
[2023-07-06 09:35] LABS: Hematocrit 34.6 % (37-47); Hemoglobin 11.5 g/dL (12.0-15.0); Mean Corp Hgb Conc 33.2 g/dL (32-36); Mean Corpuscular Hgb 26.4 pg (27.0-32.0); Mean Corpuscular Volume 79.5 fL (81-99); Platelet Count 176 K/mm3 (150-450); RBC Distribution Width CV 14.9 % (11.6-14.6); Red Blood Count 4.35 M/mm3 (4.2-5.4)
[2023-07-06 09:49] LABS: Protein, Urine (Random) 12.2 mg/dL (<11.9); Protein:Creat Ratio 135 mg/g CRE (0-200)
[2023-07-06 09:56] LABS: AST(SGOT) 10 U/L (15-37); Alanine Aminotransfer ALT/SGPT 12 U/L (13-56); Creatinine, Serum 0.64 mg/dL (0.55-1.02); EST Glomerular Filtration Rate 119 mL/min (>60); Est Glom Filt Rate - Afr Amer 144 mL/min (>60); Estimated Creatinine Clearance 183.62 ml/min; Uric Acid 4.2 mg/dL (2.6-6.0)
--- NOTE | 2023-07-06 13:17 | OB.TRI.HP_ITS ---
HPI - General General Date of Service: 07/06/23 Chief Complaint: elevated BP HPI Narrative SHAKIRA THOMPSON, is a 27 F who presents at 36.5 with elevated BP 140-150/80-90 at home. mild right sided headache. took motrin at home without effect. Maternal Data Information [facility] Calculator Estimated Delivery Date Method Current WG Current Estimate 07/29/23 Ultrasound #1 36w 5d Other Estimates 07/13/23 LMP (Certain) 39w 0d PFSH PFSH Medical History Anxiety Asthma Encounter for IUD removal PCOS (polycystic ovarian syndrome) Home Medications albuterol sulfate 90 mcg/actuation aerosol inhaler 1 puff inhalation ONCE #8.5 grams 02/20/23 [Rx Last Taken 06/22/23 08:00 2 puff] vitamins no.163-iron bis-gly 20 mg-folate no.10 1 mg tablet (PNV Tabs 20-1) 1 tab PO DAILY 02/20/23 [History Last Taken 07/05/23 20:00 1 TAB] magnesium 250 mg tablet 250 mg PO DAILY 02/25/23 [History Last Taken 07/05/23 20:00 250 mg] cephalexin 500 mg capsule 500 mg PO Q6 #28 caps 05/23/23 [Rx Last Taken 07/05/23 08:00 500 mg] ferrous sulfate 325 mg (65 mg iron) tablet (Feosol) 325 mg PO DAILY 07/04/23 [History Last Taken 07/03/23 08:00 325 mg] Allergy/AdvReac Type Severity Reaction Status Date / Time No Known Allergies Allergy Verified 07/06/23 09:14 Surgical History H/O dilation and curettage Social History household members: spouse and children housing: house number of children: 2 pets and animals: No Smoking Status: Never smoker second hand exposure: No alcohol intake: never substance use type: does not use caffeine: Yes what type of physical activity do you participate in: none seatbelt use: always do you feel safe at home: Yes 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 Date Name GA/Weeks Outcome Route Bth Weight Gen Labor Lgth Anesthesia Del Locatn Provider FOB Unknown 2019 August 41 live - full term 10lbs 3oz Mal e 19.5 hours epidural [facility] Octavio Unknown AJ (custody of) Delivery Date: Last Updated by: Marnie Duncanion 's cousin Visit Details Expected Delivery Route/Plan Labor Preferences- CB/BF classes: no labor support person: Wes labor intervention preferences: [] pain management options preferred: epidural cut cord/dad catch: yes : yes PP control planned: desires tubal ligation discussed possible routes of delivery and associated risks: [] special requests: [] Plans Covid status: discussed Flu vaccine: given Tdap vaccine: given Rhogam: na LARC form signed: yes Problem list reviewed and updated with the most current plan of care details and appropriate orders placed. Relevant counseling for the gestational age provided. Continue routine care and follow up unless otherwise noted in visit notes/problem list details OB Flowsheet Initial Weight: Not Recorded Date -?-?-?-?-?-?-?-?-?-?-?-?- EGA Weight BP Urine Prot -?-?-?-?-?-?-?-?-?-?-?-?- Glucose FHR FuHt Pres Dilation -?-?-?-?-?-?-?-?-?-?-?-?- Effaced St Visit Note 12/23/22 -?-?-?-?-?-?-?-?-?-?-?-?- 8w 6d 253 lb 6 oz 121/79 -?-?-?-?-?-?-?-?-?-?-?-?- 165 -?-?-?-?-?-?-?-?-?-?-?-?- LC- no vb/crampi ng.CRL 19.3 on handheld. will obtain formal us this week for hx of PCOS. 01/24/23 -?-?-?-?-?-?-?-?-?-?-?-?- 13w 3d 251 lb 6 oz 122/76 Nega tive -?-?-?-?-?-?-?-?-?-?-?-?- Negative 155 -?-?-?-?-?-?-?-?-?-?-?-?- SM- no vb crampi ng 02/20/23 -?-?-?-?-?-?-?-?-?--?-?-?- 17w 2d 252 lb 4 oz 127/80 Nega tive -?-?-?-?-?-?-?-?-?-?-?-?- Negative 150 -?-?-?-?-?-?-?-?-?-?-?-?- KW-no vb/crampin g. + flutters. US scheduled for 03/09. recommended magnesium and tylenol for headaches. Starting a cold, requesting albuterol inhaler. 03/19/23 -?-?-?-?-?-?-?-?-?-?-?-?- 21w 1d 257 lb 4 oz 123/77 Nega tive -?-?-?-?-?-?-?-?-?-?-?-?- Negative 137 21 -?-?-?-?-?-?-?-?-?-?-?-?- LC- no vb/crampi ng. +flutters. vocalizing desires for c/s due to macrosomia and 3rd degree laceration with tubal ligation. LC- no vb/cramping. +flutter s. vocalizing desires for c/s due to macrosomia and 3rd degree laceration with tubal ligation. 04/16/23 -?-?-?-?-?-?-?-?-?-?-?-?- 25w 1d 258 lb 8 oz 138/74 Nega tive -?-?-?-?-?-?-?-?-?-?-?-?- Negative 125 25 -?-?-?-?-?-?-?-?-?-?-?-?- LC- no vb/ctx/lo f. great fm. desires PP tubal and discussed obtaining 36 weeks growth with iol at 39 weeks, desires this instead of c/s for 3rd degree lac hx. 28 week labs ordered. 05/07/23 -?-?-?-?-?-?-?-?-?-?-?-?- 28w 1d 262 lb 4 oz 126/84 Nega tive -?-?-?-?-?-?-?-?-?-?-?-?- Negative 134 28 -?-?-?-?-?-?-?-?-?-?-?-?- MH-No Vb, LOF. G ood FM. 28 wk labs. Tdap, flu, larc. 05/21/23 -?-?-?-?-?-?-?-?-?-?-?-?- 30w 1d 266 lb 115/76 -?-?-?-?-?-?-?-?-?-?-?-?- 135 31 -?-?-?-?-?-?-?-?-?-?-?-?- JV- no complaint s. last growth scan was 98th%. has h/o 10 pound baby delivery at 41 weeks with 3rd degree tear. rpt growth at 36 weeks 06/04/23 -?-?-?-?-?-?-?-?-?-?-?-?- 32w 1d 268 lb 6 oz 123/73 Nega tive -?-?-?-?-?-?-?-?-?-?-?-?- Negative 156 33 -?-?-?-?-?-?-?-?-?-?-?-?- JV- pt wishes to have a remote from delivery bilateral salpingectomy. title 19 signed today. No other complaints. 06/18/23 -?-?-?-?-?-?-?-?-?-?-?-?- 34w 1d 270 lb 124/78 Negative -?-?-?-?-?-?-?-?-?-?-?-?- Negative 135 34 -?-?-?-?-?-?-?-?-?-?-?-?- LC- no vb/ctx/lo f. good fm. increased yellow discharge- genital cx obtained. LC- no vb/ctx/lof. good fm. increased yellow discharge- genital cx obtained. rapid bv neg. 07/01/23 -?-?-?-?-?-?-?-?-?-?-?-?- 36w 0d 276 lb 6 oz 137/82 Nega tive -?-?-?-?-?-?-?-?--?-?-?-?- Negative 142 38 Cephalic 3 -?-?-?-?-?-?-?-?-?-?-?-?- 80 -2 -1 KW- no vb/lof/c tx. good fm. GBS today. Growth US-tomorrow. increased pelvic pressure. NST FHR Rate Baby A Baseline: 140 Variability:: Moderate Accelerations:: 15 x 15 Decelerations:: None NST Reactive:: Yes FHR Category:: Category I Assessment & Plan (1) Elevated BP without diagnosis of hypertension: COMMENT: PEC labs negative. headache improved with tylenol. discouraged motrin use in . has bp cuff at home and has appt in office tomorrow for follow up. Charges/Coding Procedures Urinary/Genital [id number]: [id number] non-stress test Interp
== END 2023-07-06 10:45 | disposition home or self-care (01) ==
LOC: WP 08:57 → WPOUT 08:57
PROVIDERS: PCP Family Medicine; Visit Provider Registered Nurse
DX: O99.891 Other specified diseases and conditions complicating pregnancy (principal); R03.0 Elevated blood-pressure reading, without diagnosis of hypertension; R51.9 Headache, unspecified; Z3A.36 36 weeks gestation of pregnancy; J45.909 Unspecified asthma, uncomplicated; O99.513 Diseases of the respiratory system complicating pregnancy, third trimester
CPT/HCPCS: 36415; 59025; 59050 ×2; 82565; 82570; 84156; 84450; 84460; 84550; 85027; G0378 ×2; 99221

== ENCOUNTER 2023-07-08 05:20 | Inpatient (IN) | payer MEDICAID, SELFPAY ==
[2023-07-08] VITALS (26 sets, daily range): BP systolic 111–141; BP diastolic 53–86; PULSE 62–105; RESP 12–19; TEMP 36.2–36.9; O2SAT 14–100; BMI 43.4
--- OUTSIDE RECORDS SUMMARY | 2023-07-08 05:44 | XMS RPT_ITS | CCD ---
Author Name Unknown Address [address] [place] [address] Organization [facility] Care Team Providers Care Napper Fixer Name Role Phone ULI ALVAREZ MD Primary Care Physician [phone] MEI Attending Unavaila ULI Douglas Primary Care Unavailable Yusuf Gan Primary Care Provider [phone] YUSUF GAN Primary Care Unavailable Yusuf Gan [...] Drug Class(es) Dates Sig (Normalized) Sig (Original) [id number] 200 actuat albuterol 0.09 mg/actuat metered dose [...] 16:06-0400 Body height 170.2 cm Yusuf Gan [employer] Work Phone: [employer] 10-07-2022 16:06-0400 Body mass index (BMI) [Ratio] 40.1 kg/m2 Yusuf Bettencourtezequielyunier [employer] Work Phone: [employer] 10-07-2022 16:06-0400 Body temperature 97.11 [degF] Yusuf Bettencourtezequielyunier [employer] Work Phone: [employer] 10-07-2022 16:06-0400 Body weight 116.12 kg Yusuf Bettencourtremberto [employer] Work Phone: [employer] 10-07-2022 16:06-0400 Diastolic blood pressure 69 mm[Hg] Yusuf Bettencourtremberto [employer] Work Phone: [employer] 10-07-2022 16:06-0400 Heart rate 72 /min Yusuf Gan DO Work Phone: [facility] 10-07-2022 16:06-0400 SaO2% (BldA) [Mass fraction] 99 % Yusuf Gan DO Work Phone: [facility] 10-07-2022 16:06-0400 Systolic blood pressure 108 mm[Hg] Yusuf Gan DO Work Phone: [facility] 08-16-2022 07:41-0500 Body temperature 98.1 [degF] Krislyn Aberegg PA Work Phone: [facility] 08-16-2022 07:41-0500 Body weight 112.58 kg Krislyn Aberegg PA Work Phone: [facility] 08-16-2022 07:41-0500 Diastolic blood pressure 76 mm[Hg] Krislyn Aberegg PA Work Phone: [facility] 08-16-2022 07:41-0500 Heart rate 111 /min Krislyn Aberegg PA Work Phone: [facility] 08-16-2022 07:41-0500 Respiratory rate 18 /min Krislyn Aberegg PA Work Phone: [facility] 08-16-2022 07:41-0500 SaO2% (BldA) [Mass fraction] 99 % Krislyn Aberegg PA Work Phone: [facility] 08-16-2022 07:41-0500 Systolic blood pressure 132 mm[Hg] Krislyn Aberegg PA Work Phone: [facility] 04-02-2022 21:02-0400 Body height 170.[address] HAMIDA GASTON MD [facility] 04-02-2022 21:02-0400 Body temperature 98.78 [degF] DR HAMIDA GASTON MD [facility] 04-02-2022 21:02-0400 Body weight 113.[address] HAMIDA GASTON MD [facility] 04-02-2022 21:02-0400 Diastolic blood pressure 84 mm[Hg] DR HAMIDA GASTON MD [facility] 04-02-2022 21:02-0400 Heart rate 82 /min DR HAMIDA GASTON MD [facility] 04-02-2022 21:02-0400 Respiratory rate 18 /min DR HAMIDA GASTON MD [facility] 04-02-2022 21:02-0400 Systolic blood pressure 131 mm[Hg] DR HAMIDA GASTON MD [facility] Encounters Encounter Date Encounter Type Care Provider Facility Start: 03-10-2023 End: 03-10-2023 ambulatory PRIMARY CARE [facility] Start: 10-07-2022 End: 10-07-2022 ambulatory YUSUF GAN [facility] Start: 10-07-2022 End: 10-07-2022 Office outpatient visit 15 minutes Yusuf Gan DO Work Phone: [facility] Procedures Date Procedure Procedure Detail Performing Clinician Start: 08-16-2022 STREP A MOLECULAR (POC) Estevan Medina PA Work Phone: None (qualifier value) DR ROSALIO GASTON MD Plan of Treatment Date Care Activity Detail Author Start: 2046 Zoster Vaccines (1 of 2) Zoste r Vaccines (1 of 2) [facility] Start: 06-17-2032 DTaP/Tdap/Td Vaccine s (9 - Td or Tdap) DTaP/Tdap/Td Vaccines (9 - Td or Tdap) [facility] Start: 04-09-2023 End: 04-09-2023 Patient encounter procedure 04/09/2023 Office Visit Family Medicine Yusuf Gan DO [address] [place] [id number] [facility] Start: 02-07-2023 Influenza vaccination Influenz a Vaccine (Season Ended) [facility] Start: 06-09-2022 DEPRESSION ASSESSMENT DEPRESSION ASS ESSMENT [facility] Start: 02-07-2022 Influenza vaccination INFLUENZA (#1) [facility] Start: 2017 PAP TESTING PAP TESTING [facility] Start: 2017 Screening for malign ant neoplasm of cervix Pap Smear [facility] Start: 2015 Urine microalbumin profile DTAP,TDAP,TD (1 - Tdap) [facility] Start: 2014 HEPATITIS C SCREENING HEPATITIS C [facility] Start: 2014 Hepatitis C screening Hepatitis C [facility] Start: 2014 HIV SCREENING HIV SCREENING [facility] Start: 2010 PEDS TO ADULT TRANSI TION ANNUAL ASSESSMENT PEDS TO ADULT TRANSITION ANNUAL ASSESSMENT [facility] Start: 2008 PEDS TO ADULT TRANSI TION INITIAL DISCUSSION PEDS TO ADULT TRANSITION INITIAL DISCUSSION [facility] Start: 2007 HPV VACCINE (1 - 2-d ose series) HPV VACCINE (1 - 2-dose series) [facility] Start: 02-16-2002 Varicella vaccination Varicell a Vaccines (1 of 2 - 2-dose childhood series) [facility] Start: 01-10-1997 COVID-19 VACCINE (#1) COVID-19 VACCI NE (#1) [facility] Start: 1996 HEPATITIS B (1 of 3 - 3-dose series) HEPATITIS B (1 of 3 - 3-dose series) [facility] Start: 1996 HIV screening HIV Screening [facility] Immunizations Immunization Date Immunization Notes Care Provider Fa cility 06-17-2022 tetanus toxoid, redu tiffanie diphtheria toxoid, and acellular pertussis vaccine, adsorbed Yusuf Gan DO Work Phone: [facility] 04-16-2018 tetanus toxoid, redu tiffanie diphtheria toxoid, and acellular pertussis vaccine, adsorbed Yusuf Gan DO Work Phone: [facility] 07-30-2013 human papilloma viru s vaccine, quadrivalent Yusuf Gan DO Work Phone: [facility] 03-29-2013 human papilloma viru s vaccine, quadrivalent Yusuf Gan DO Work Phone: [facility] 01-20-2013 HPV, unspecified formulation Yusuf Gan DO Work Phone: [facility] 01-20-2013 meningococcal polysaccharide (groups A, C, Y and W-135) diphtheria toxoid conjugate vaccine (MCV4P) Yusuf Gan DO Work Phone: [facility] 01-20-2013 tetanus toxoid, redu tiffanie diphtheria toxoid, and acellular pertussis vaccine, adsorbed Yusuf Gan DO Work Phone: [facility] 01-19-2002 diphtheria, tetanus toxoids and acellular pertussis vaccine, unspecified formulation Yusuf Gan DO Work Phone: [facility] 01-19-2002 measles, mumps and r ubella virus vaccine Yusuf Gan DO Work Phone: [facility] 01-19-2002 poliovirus vaccine, inactivated Yusuf Gan DO Work Phone: [facility] 11-08-1997 diphtheria, tetanus toxoids and acellular pertussis vaccine, unspecified formulation Yusuf Gan DO Work Phone: [facility] 11-08-1997 haemophilus influenz ae type b vaccine, PRP-T conjugate Yusuf Gan DO Work Phone: [facility] 11-08-1997 measles, mumps and r ubella virus vaccine Yusuf Gan DO Work Phone: [facility] 04-04-1997 hepatitis B vaccine, pediatric or pediatric/adolescent dosage Yusuf Gan DO Work Phone: [facility] 04-04-1997 trivalent poliovirus vaccine, live, oral Yusuf Gan DO Work Phone: [facility] 01-10-1997 diphtheria, tetanus toxoids and pertussis vaccine Yusuf Gan DO Work Phone: [facility] 01-10-1997 haemophilus influenz ae type b vaccine, PRP-T conjugate Yusuf Gan DO Work Phone: [facility] 1996 diphtheria, tetanus toxoids and pertussis vaccine Yusuf Rutlla DO Work Phone: [facility] 1996 haemophilus influenz ae type b vaccine, PRP-T conjugate Yusuf Gan DO Work Phone: [facility] 1996 trivalent poliovirus vaccine, live, oral Yuusf Jimeneza DO Work Phone: [facility] 1996 diphtheria, tetanus toxoids and pertussis vaccine Yusuf Bettencourtlla DO Work Phone: [facility] 1996 haemophilus influenz ae type b vaccine, PRP-T conjugate Yusuf Gan DO Work Phone: [facility] 1996 hepatitis B vaccine, pediatric or pediatric/adolescent dosage Yusuf Gan DO Work Phone: [facility] 1996 trivalent poliovirus vaccine, live, oral Yusuf Gan DO Work Phone: [facility] 1996 hepatitis B vaccine, pediatric or pediatric/adolescent dosage Yusuf Bettencourtlla DO Work Phone: [facility] Payers Date Payer Category Payer Medicaid [id number] 2022 Unknown [id number] 1996 Unknown [id number] 1996 Unknown [id number] Social History Date Type Detail Facility Start: 08-16-2022 Tobacco smoking status Never s moked tobacco (finding) [facility] Start: 1996 Sex Assigned At Female A [facility] Start: 08-16-2022 Tobacco use and exposure Smokeless tobacco non-user [facility] Start: 1996 Sex Assigned At Not on file [facility] Tobacco smoking stat us MIIS Ex-smoker [facility] End: 06-13-2020 History of tobacco use Current smoker [facility] End: 06-13-2020 History of tobacco use Cigarette Smoker [facility] Start: 10-07-2022 Alcohol intake Current drinke r of alcohol (finding) [facility] Start: 09-27-2022 End: 10-07-2022 Exposure to SARS-CoV-2 (event) Not sure [facility] Functional Status Date Assessment Result Facility 04-02-2022 Functional Status Independent [facility] Mental Status Date Assessment Result Facility 04-02-2022 Mental Status Orientation Oriented x 4 [facility] Clinical Notes 04-02-2022 to 10-07-2022 Yusuf Gan DO - 10/07/2022 4:00 PM EDTPatient KARINA Flores - 08/16/2022 7:49 AM EST Note Date & Type Note Facility 10-07-2022 History of Present illness Narrative Images from the original note were not included. [facility] [address] [place] [address] Visit type: Established Patient Reason for Visit: [...] She does feel the Lexapro is helpful. 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 documented in this encounter [facility] 08-16-2022 Note HNO ID: [id number] Author: KARINA Lim Service: ? Author Type: Physician Senior Ios Developer Type: Progress Notes Filed: 08/16/2022 8:10 AM Note Text: This note was created using DZZOM. Subjective Shakira Izquierdo is a 27 year old female. HPI 27-year-old female presents for sore throat and congestion. Patient has had a sore throat for the past 2 to 3 days. She has had congestion and postnasal drainage. 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 KARINA Lim [facility] 08-16-2022 Instructions KARINA Lim - [...] urine. Chest pain. documented in this encounter [facility] 08-16-2022 History of Present illness Narrative This note was created using Agilvaxriter. Subjective Shakira Izquierdo is a 27 year old female. HPI 27-year-old female presents for sore throat and congestion. Patient has had a sore throat for the past 2 to 3 days. She has had congestion and postnasal drainage. 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 KARINA Lim documented in this encounter [facility] 04-04-2022 Note . MICRO - Microbiology [...] performed at: [facility], [address] [place] [address], [address]- , [facility] [place] 04-02-2022 Hospital Discharge instructions Patient Education [...] Hold for 2 seconds, then slowly lower. 3412-1443 [employer]. [address] [place] [address]. All rights reserved. This information is not [...] are taking other medicines. You may use nzpm-chn-bkcvvfu medicines such as acetaminophen, ibuprofen, or naprosyn [...] Chills Burning or pain when passing urine 8342-3982 [employer]. [address] [place] [address]. All rights reserved. This information is not intended as a substitute for professional medical care. Always follow your healthcare professional's instructions. Follow Up Care 04/02/2022 20:49:18 With:ULI ALVAREZ MD Address: [facility] [address] [place] [address]- When:2-4 days Comments:If no improvement [facility] 04-02-2022 Note Discharge Instructions Thank you for allowing [facility] to assist you with your healthcare needs. [...] 2-4 days Why: If no improvement Where: [place] [place] [address]- Allergies NKA Medications Please ask your primary [...] may report side effects to FDA at 8-816-HCW-7639. What other drugs will affect tizanidine? Taking [...] drugs may affect tizanidine, including prescription and uzjt-kxj-pjxtqrk medicines, vitamins, and herbal products. Not all [...] to ensure that the information provided by [employer]. ('Multum') is accurate, up-to-date, and complete, but no guarantee is made to that effect. Drug information contained herein may be time sensitive. Edtrips information has been compiled for use by healthcare practitioners and consumers in the [place] and therefore [employer] does not warrant that uses outside of the [place] are appropriate, unless specifically indicated otherwise. [employer] drug information does not endorse drugs, diagnose patients or recommend therapy. Room 21 Media drug information is an informational resource designed [...] effective or appropriate for any given patient. [employer] does not assume any responsibility for any aspect of healthcare administered with the aid of information [employer]trips provides. The information contained herein is not intended to cover all possible uses, directions, precautions, warnings, drug interactions, allergic reactions, or adverse effects. If you have questions about the drugs you are taking, check with your doctor, nurse or pharmacist. Copyright 1727-7673 [employer]. Version: 4.01. Revision Date: 08/14/2020. ibuprofen (EYE [...] may report side effects to FDA at 9-816-ZLR-0202. What other drugs will affect ibuprofen? Ask [...] drugs may affect ibuprofen, including prescription and gmpr-zvv-cafbcqi medicines, vitamins, and herbal products. Not all [...] to ensure that the information provided by [employer]. ('[employer]um') is accurate, up-to-date, and complete, but no guarantee is made to that effect. Drug information contained herein may be time sensitive. [employer]ps information has been compiled for use by healthcare practitioners and consumers in the [place] and therefore [employer] does not warrant that uses outside of the [place] are appropriate, unless specifically indicated otherwise. [employer] drug information does not endorse drugs, diagnose patients or recommend therapy. [employer] drug information is an informational resource designed [...] effective or appropriate for any given patient. [employer] does not assume any responsibility for any aspect of healthcare administered with the aid of information Ed[employer]ps provides. The information contained herein is not intended to cover all possible uses, directions, precautions, warnings, drug interactions, allergic reactions, or adverse effects. If you have questions about the drugs you are taking, check with your doctor, nurse or pharmacist. Copyright 0699-2912 [employer]. Version: 22.01. Revision Date: 05/03/2020. Education Materials [...] Hold for 2 seconds, then slowly lower. 4997-0835 [employer]. [address] [place] [address], [place] [address]. All rights reserved. This information is not [...] are taking other medicines. You may use mkqe-ymk-eggbdnq medicines such as acetaminophen, ibuprofen, or naprosyn [...] Chills Burning or pain when passing urine 3195-5254 [employer]. [address] [place] [address]. All rights reserved. This information is not intended as a substitute for professional medical care. Always follow your healthcare professional's instructions. Additional Information VACCINATE! IT SAVES LIVES! Members of the community who have not yet received the COVID-19 vaccine and would like to receive it can visit one of [facility] vaccine clinics. There are many vaccine clinic locations within the [facility]. For locations and available times, please visit [email or web address]. It is important to note that some COVID mobile vaccine clinics are held outdoors and may be canceled in rainy or stormy conditions. To learn more about pediatric vaccinations (ages 5-11), we invite you to visit the [facility] webpage. [email or web address] To learn more about the COVID-19 vaccine, we invite you to visit the [facility] website for a list of frequently asked questions. [email or web address] [email or web address] [facility] Patient Portal Access Instructions: Stay connected with your healthcare team and access your personal medical information anytime with the [facility] Patient Portal. If you would like a full copy of your medical records please contact the [facility] Medical Records Department Friday through Friday between 8a.m. and 4:30p.m. Please follow the directions below to access the portal: 1.Access the email account you provided upon registration to the [facility].2.Look for an invitation email from [facility].3.Open the email and access the invitation link: Accept Invitation to [facility].Fill in the required cantrell to create your account. Sign into [email or web address] with your username and password that you [...] you will allow to register on the [facility] Patient Portal for access to your information. You can also access the [facility] Patient Portal on the AVdirect stefano. Simply click on Health Records under [...] Call your local pharmacy or go to [email or web address] to find one close to you.3.Make use of household items: Use cat litter or old coffee grounds to dispose medications if other options are not available. Mix your drugs with these household products, seal them in an airtight container and throw it into the garbage. Call [facility]: [phone] to be sure your drugs can be [...] aware that I should contact my doctor. 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 Signature: Date/Time: Relationship to Patient: ____ Witness Name/Signature: Date/Time: [facility] 04-02-2022 Evaluation + Plan note Diagnostic Tests PendingUrine Culture 04/02/22 [facility] Diagnosis Mild episode of recurrent major depressive disorder (HCC)- Primary Acute non-recurrent frontal sinusitis [facility] Narrative No data available for this section [facility] Summary Purpose Family History No Family History [...] Member Role: Primary Care Physician Address: Address: [facility] [address] [place] [address]- Name: HAMIDA GASTON MD Position: ED Physician Member Role: ED Physician Address: Address: [address] [place] [address] Name: Kerrie Gaston RN Position: AO RN Member Role: RN Care Team Related Persons Name: ALICIA ACEVEDO Address: [address] [place] [address] [place] Name: ALICIA ACEVEDO Address: [address] [place] [address] [place] Name: ALICIA ACEVEDO Address: [address] [place] [address] [place] Name: ALICIA ACEVEDO Address: [address] [place] [address] [place] Name: ALICIA ACEVEDO Address: [address] [place] [address] [place] Name: ALICIA ACEVEDO Address: Home [address] [place], [place] [address] [address] Name: ALICIA ACEVEDO Address: Home [address] [place], [place] [address] [place] [address] [place] Name: ALICIA ACEVEDO Address: Home [address] [place], [place] [address] [place] [address] [place] Name: ALICIA ACEVEDO Address: Home [address] [place], [place] [address] [place] [id number] [place] Name: ALICIA ACEVEDO Address: Home [address] [place], [place] [address] [place] [place] [id number] Name: ALICIA ACEVEDO Address: Home [address] [place] [phone] [place] Address: Temporary [address] [place], [place] [id number] Name: ALICIA ACEVEDO Address: Home [address] [place] [id number] [place] Address: Temporary [address] [place], [place] [id number] Name: KENNETH KOEHLER Address: Home [address] [id number] INFORMATION SOURCE (unrecogn ized section and content) DATE CREATED AUTHOR AUTHOR'S ORGANIZ ATION 08/17/2022 [facility] DATE CREATED AUTHOR AUTHOR'S ORGANIZ ATION 10/09/2022 [facility] DATE CREATED AUTHOR AUTHOR'S ORGANIZ ATION 03/15/2023 [facility] Source Comments (unrecognize d section and content) In the event this informatio n is protected by the Federal Confidentiality of Alcohol and Drug Abuse Patient Records regulations: The Federal rules restrict any use of the information to criminally investigate or prosecute any alcohol or drug abuse patient.[facility] Reason for Visit (unrecogniz ed section and content) Reason Comments Follow-up Med check Sinus Problem Care Teams (unrecognized sec tion and content) Napper Fixer Relationship Specialty Start Date End Date Yusuf Gan Kadie, DO [address] [place] [address] PCP - General 12/22/20 FOR RECORDS PERTAINING [...] BE BASED ON THE PRIMARY CLINICAL RECORDS. [facility]. provides no warranty or guarantee of the accuracy or completeness of information in this document.
[2023-07-08] MEDS: Lactated Ringers 1,000 ML 999 ML IV (05:45)
[2023-07-08 05:55] LABS: Absolute Neutrophil Count 6.5 X10^3/uL (2.0-7.7); Basophil# 0.02 X10^3/uL; Basophil% 0.2 % (0-1); Eosinophil# 0.09 X10^3/uL; Hematocrit 35.1 % (37-47); Hemoglobin 11.6 g/dL (12.0-15.0); Lymphocyte % 24.4 % (19-41); Mean Corpuscular Hgb 26.2 pg (27.0-32.0); Mean Corpuscular Volume 79.2 fL (81-99); Mean Platelet Vol. 10.3 fl (6.2-12.0); Monocyte% 5.3 % (0-10); NRBC Flagged by Analyzer 0 % (0-5); Neutrophil # 6.45 X10^3/uL (2.7-7.7); Neutrophil % 68.4 % (47-70); Platelet Count 191 K/mm3 (150-450); RBC Distribution Width CV 15.1 % (11.6-14.6); RBC Distribution Width SD 42.8 fl (35.1-43.9); Red Blood Count 4.43 M/mm3 (4.2-5.4); White Blood Count 9.4 K/mm3 (4.4-11.0)
[2023-07-08] MEDS: Sodium Citrate/Citric Acid 30 ML UDC PO (06:51)
[2023-07-08] MEDS: Acetaminophen 500 MG Tablet 1000 MG PO ×3 (06:51→19:04)
[2023-07-08] MEDS: Lactated Ringers 1,000 ML 150 ML IV (06:51)
--- NOTE | 2023-07-08 07:08 | HP.PCM.OB_ITS ---
HPI - General General Date of Admission: 07/08/23 HPI Narrative SHAKIRA THOMPSON, is a 27 y/o @ 37 weeks who presents to L&D for a primary section due to macrosomia and history of 3rd degree perineal laceration. She is also found to have gestational hypertension and variable decelerations upon admission. Her hypertension was diagnosed yesterday in office and found to be without severe features or proteinuria. The patient was counseled on the risks, benefits, and alternatives to a section and requested to proceed to avoid further pelvic floor injury. The estimated weight is upwards of 10.44 pounds and her last child was 10 pounds at 41 weeks. Maternal Data Information LORETTA Calculator Estimated Delivery Date Method Current WG Current Estimate 07/29/23 Ultrasound #1 37w 0d Other Estimates 07/13/23 LMP (Certain) 39w 2d PFSH PFSH Medical History (Updated 07/08/23 @ 05:51 by Tasha Amaro) Anxiety Asthma Encounter for IUD removal Gestational HTN Infertility PCOS (polycystic ovarian syndrome) Home Medications vitamins no.163-iron bis-gly 20 mg-folate no.10 1 mg tablet (PNV Tabs 20-1) 1 tab PO DAILY pegnancy 02/20/23 [History Last Taken 07/07/23 17:00 1 TAB] magnesium 250 mg tablet 250 mg PO DAILY 02/25/23 [History Last Taken 07/07/23 17:00 250 mg] cephalexin 500 mg capsule 500 mg PO Q6 uti #28 caps 05/23/23 [Rx Last Taken 07/05/23 08:00 500 mg] ferrous sulfate 325 mg (65 mg iron) tablet (Feosol) 325 mg PO DAILY 07/04/23 [History Last Taken 07/06/23] albuterol sulfate 90 mcg/actuation aerosol inhaler 1 puff inhalation ONCE PRN asthma 07/08/23 [History Last Taken Unknown] Allergy/AdvReac Type Severity Reaction Status Date / Time No Known Allergies Allergy Verified 07/08/23 05:44 Surgical History (Updated 07/08/23 @ 05:51 by Tasha Amaro) H/O dilation and curettage History of gynecologic surgery Social History household members: spouse and children housing: house number of children: 2 pets and animals: No Smoking Status: Former smoker second hand exposure: No alcohol intake: never substance use type: does not use caffeine: Yes what type of physical activity do you participate in: none seatbelt use: always do you feel safe at home: Yes 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: -Lizett banegas History 3 Elective abortions Hx Para 0 Spontaneous abortions 2 Hx # Term Pregnancies Ectopic pregnancies Hx # Pregnancies Multiple births # of living children 1 Past Pregnancies Del. Date Name GA/Weeks Outcome Route Bth Weight Infant Gen Labor Lgth Anesthesia Del Locatn Provider FOB Unknown 2018 August 41 live - full term 10lbs 3oz Mal e 19.5 hours epidural [facility] SM Octavio Unknown AJ (custody of) Delivery Date: Last Updated by: Marnie Dyer 's cousin Visit Details Expected Delivery Route/Plan Labor Preferences- CB/BF classes: no labor support person: Wes labor intervention preferences: [] pain management options preferred: epidural cut cord/dad catch: yes : yes PP control planned: desires tubal ligation discussed possible routes of delivery and associated risks: [] special requests: [] Plans Covid status: discussed Flu vaccine: given Tdap vaccine: given Rhogam: na LARC form signed: yes Problem list reviewed and updated with the most current plan of care details and appropriate orders placed. Relevant counseling for the gestational age provided. Continue routine care and follow up unless otherwise noted in visit notes/problem list details OB Flowsheet Initial Weight: Not Recorded Date -?-?-?-?-?-?-?-?-?-?-?-?- EGA Weight BP Urine Prot -?-?-?-?-?-?-?-?-?-?-?-?- Glucose FHR FuHt Pres Dilation -?-?-?-?-?-?-?-?-?-?-?-?- Effaced St Visit Note 12/23/22 -?-?-?-?-?-?-?-?-?-?-?-?- 8w 6d 253 lb 6 oz 121/79 -?-?-?-?-?-?-?-?-?-?-?-?- 165 -?-?-?-?-?-?-?-?-?-?-?-?- LC- no vb/crampi ng.CRL 19.3 on handheld. will obtain formal us this week for hx of PCOS. 01/24/23 -?-?-?-?-?-?-?-?-?-?-?-?- 13w 3d 251 lb 6 oz 122/76 Nega tive -?-?-?-?-?-?-?-?-?-?-?-?- Negative 155 -?-?-?-?-?-?-?-?-?-?-?-?- SM- no vb crampi ng 02/20/23 -?-?-?-?-?-?-?-?-?-?-?-?- 17w 2d 252 lb 4 oz 127/80 Nega tive -?-?-?-?-?-?-?-?-?-?-?-?- Negative 150 -?-?-?-?-?-?-?-?-?-?-?-?- KW-no vb/crampin g. + flutters. US scheduled for 03/09. recommended magnesium and tylenol for headaches. Starting a cold, requesting albuterol inhaler. 03/19/23 -?-?-?-?-?-?-?-?-?-?-?-?- 21w 1d 257 lb 4 oz 123/77 Nega tive -?-?-?-?-?-?-?-?-?-?-?-?- Negative 137 21 -?-?-?-?-?-?-?-?-?-?-?-?- LC- no vb/crampi ng. +flutters. vocalizing desires for c/s due to macrosomia and 3rd degree laceration with tubal ligation. LC- no vb/cramping. +flutter s. vocalizing desires for c/s due to macrosomia and 3rd degree laceration with tubal ligation. 04/16/23 -?-?-?-?-?-?-?-?-?-?-?-?- 25w 1d 258 lb 8 oz 138/74 Nega tive -?-?-?-?-?-?-?-?-?-?-?-?- Negative 125 25 -?-?-?-?-?-?-?-?-?-?-?-?- LC- no vb/ctx/lo f. great fm. desires PP tubal and discussed obtaining 36 weeks growth with iol at 39 weeks, desires this instead of c/s for 3rd degree lac hx. 28 week labs ordered. 05/07/23 -?-?-?-?-?-?-?-?-?-?-?-?- 28w 1d 262 lb 4 oz 126/84 Nega tive -?-?-?-?-?-?-?-?-?-?-?-?- Negative 134 28 -?-?-?-?-?-?-?-?-?-?-?-?- MH-No Vb, LOF. G ood FM. 28 wk labs. Tdap, flu, larc. 05/21/23 -?-?-?-?-?-?-?-?-?-?-?-?- 30w 1d 266 lb 115/76 -?-?-?-?-?-?-?-?-?-?-?-?- 135 31 -?-?-?-?-?-?-?-?-?-?-?-?- JV- no complaint s. last growth scan was 98th%. has h/o 10 pound baby delivery at 41 weeks with 3rd degree tear. rpt growth at 36 weeks 06/04/23 -?-?-?-?-?-?-?-?-?-?-?-?- 32w 1d 268 lb 6 oz 123/73 Nega tive -?-?-?-?-?-?-?-?-?-?-?-?- Negative 156 33 -?-?-?-?-?-?-?-?-?-?-?-?- JV- pt wishes to have a remote from delivery bilateral salpingectomy. title 19 signed today. No other complaints. 06/18/23 -?-?-?-?-?-?-?-?-?-?-?-?- 34w 1d 270 lb 124/78 Negative -?-?-?-?-?-?-?-?-?-?-?-?- Negative 135 34 -?-?-?-?-?-?-?-?-?-?-?-?- LC- no vb/ctx/lo f. good fm. increased yellow discharge- genital cx obtained. LC- no vb/ctx/lof. good fm. increased yellow discharge- genital cx obtained. rapid bv neg. 07/01/23 -?-?-?-?-?-?-?-?-?-?-?-?- 36w 0d 276 lb 6 oz 137/82 Nega tive -?-?-?-?-?-?-?-?-?-?-?-?- Negative 142 38 Cephalic 3 -?-?-?-?-?-?-?-?-?-?-?-?- 80 -2 -1 KW- no vb/lof/c tx. good fm. GBS today. Growth US-tomorrow. increased pelvic pressure. 07/07/23 -?-?-?-?-?-?-?-?-?-?-?-?- 36w 6d 279 lb 4 oz 137/84 -?-?-?-?-?-?-?-?-?-?-?-?- 140 45 Cephalic -?-?-?-?-?-?-?-?-?-?-?-?- JV- growth scan shows baby weight could be up to 10.44 oz. pt wants primary section due to 3rd degree lac with a 10 pound baby. bp today is now 147/91. plan for delivery tomorrow for PIH. NST FHR Rate Baby A Baseline: 120 Variability:: Moderate Accelerations:: 15 x 15 Decelerations:: Variable and Prolonged (6 minutes down to 120) FHR Category:: Category II ROS Constitutional Constitutional: Denies change in weight, fatigue, fever(s), headache(s), poor ap petite or weakness Eyes Eyes: Denies blurry vision, change in vision, seeing flashes or spots in vision ENT HEENT: Denies dizziness, headache(s), loss taste/smell or sore throat Cardiovascular Cardiovascular: Denies chest pain, dizziness, dyspnea, irregular heart rhythm, leg edema, palpitations, rapid heart rate or vomiting Respiratory/Chest Respiratory/Chest: Denies chest tightness, cough, dyspnea or breast pain Gastrointestinal Gastrointestinal: Denies abdominal pain, anorexia, constipation, cramping, diarrhea, hemorrhoids, vomiting or weight changes Genitourinary Genitourinary: Denies dysuria, flank pain, genital lesions, genital pain, urinary frequency or urinary urgency Musculoskeletal Musculoskeletal: Denies back pain, difficulty walking, joint pain, limited range of motion, muscle cramps or numbness Integumentary Integumentary: Denies lesions or unusual bruising Neurologic Neurologic: Denies abnormal movements, abnormal speech, dizziness, numbness, seizure-like activity or syncope Psychiatric Psychiatric: Denies anxiety, behavioral changes, change in appetite, change in libido, cognitive impairment, confusion, depression, difficulty concentrating, hallucinations or suicidal thoughts Endocrine Endocrinology: Denies excessive sweating, polydipsia or polyuria Hematologic/Lymphatic Hematologic/Lymphatic: Denies easy bleeding, easy bruising or lymphadenopathy Allergic/Immunologic Allergic/Immunologic: Denies itchy eyes, lip swelling, seasonal rhinorrhea, rhinitis, throat swelling, tongue swelling, eczemia, wheezing or asthma Vital Signs Vital Signs Vital Signs: 07/08/23 05:55 07/08/23 05:55 07/08/23 05:54 Temperature Temperature Source Pulse Rate 101 H Respiratory Rate Blood Pressure 141/78 H Blood Pressure Mean BP Systolic 141 BP Diastolic 78 Blood Pressure Source Blood Pressure Position Blood Pressure Location Pulse Ox 99 Oxygen Delivery Method 07/08/23 05:59 07/08/23 05:59 07/08/23 05:55 Temperature Temperature Source Temporal Pulse Rate 99 Respiratory Rate Blood Pressure Blood Pressure Mean BP Systolic BP Diastolic Blood Pressure Source Blood Pressure Position Blood Pressure Location Pulse Ox 99 Oxygen Delivery Method 07/08/23 06:04 07/08/23 06:04 07/08/23 05:55 Temperature 98.0 F Temperature Source Pulse Rate 98 Respiratory Rate Blood Pressure Blood Pressure Mean BP Systolic BP Diastolic Blood Pressure Source Blood Pressure Position Blood Pressure Location Pulse Ox 98 Oxygen Delivery Method 07/08/23 06:25 Temperature 98.0 F Temperature Source Temporal Pulse Rate 105 H Respiratory Rate 16 Blood Pressure 141/78 H Blood Pressure Mean 99 BP Systolic BP Diastolic Blood Pressure Source Monitor Blood Pressure Position Semi-Fowlers Blood Pressure Location Left Arm Pulse Ox 98 Oxygen Delivery Method Room Air Weight Weight: 277 lb 12.519 oz Body Mass Index (BMI) 43.4 Physical Exam Const alert, oriented x3, no apparent distress and healthy appearing General Appearance: cooperative; Negative for anxious HEENT normocephalic Face and Sinus: normal facial exam Eyes EOMs intact bilaterally and no scleral icterus General Eye: normal appearance of both eyes Neck full ROM and supple Lymph Lymphatic: no lymphadenopathy noted Chest Chest: abnormal inspection of the chest Resp normal respiratory effort Effort and Inspection: able to speak in complete sentences Cardio regular rate GI soft to palpation and non-tender Inspection: gravid Palpation: soft; Negative for tender Back/Spine no CVA tenderness Extremity normal to inspection, full ROM and no clubbing, cyanosis or edema General Extremity: Negative for calf tenderness or edema Skin Lesions: no lesions Rashes: no rashes Psych mental status grossly normal Labs Labs Labs: Blood Type A POSITIVE Antibody Screen NEGATIVE Hct 35.1 % (37-47) L Hgb 11.6 g/dL (12.0-15.0) L Obstetrics Ultrasound Syphilis Total Ab Non-reactive Rubella IgG Antibody Equiv (Nonreactive) Hep Bs Antigen Non-Reactive (Nonreactive) Hepatitis C Antibody Non-Reactive (Nonreactive) Chlamydia DNA (SHANNON) Negative (Negative) N.gonorrhoeae DNA (SHANNON) Negative (Negative) HIV 1&2 Antibody Non-Reactive (Nonreactive) Glucose 1 Hr 50 gm 131 mg/dL (70-140) Group B Strep DNA POSITIVE (Negative) H Rhogam given: No Miscellaneous Test Assessment & Plan (1) Elevated BP without diagnosis of hypertension: COMMENT: PEC labs negative. headache improved with tylenol. discouraged motrin use in . has bp cuff at home and has appt in office tomorrow for follow up. (2) Vaginal discharge during : COMMENT: genital culture rapid bv in office. (3) Anemia in preg-unspec: COMMENT: staring OTC iron. improved CBC on repeat (4) Anxiety: COMMENT: no meds. Used lexapro in past. Stable (5) Contraception management: QUALIFIERS: Contraceptive encounter type: sterilization Qualified Code(s): Z30.2 - Encounter for sterilization COMMENT: Wants pp BS. Needs title 19 signed (6) UTI (urinary tract infection) during : COMMENT: has had multiple infections, recommend daily keflex for remainder of . (7) History of third degree perineal laceration: COMMENT: consider 39 week IOL, growth at 36 wk (8) History of macrosomia in infant in prior , currently : COMMENT: 30 wk: 98%. Repeat 4 weeks: 34 wk:99% (9) Rubella non-immune status, antepartum: COMMENT: equivocal. offer PP (10) : QUALIFIERS: Weeks of gestation: 36 weeks Qualified Code(s): Z3A.36 - 36 weeks gestation of COMMENT: gbs neg, Desires NIPT, nl anatomy (11) Supervision of high risk in first trimester: COMMENT: PRR LORETTA 07/29/23 PC August ( custody of cousin). - Wes (12) PCOS (polycystic ovarian syndrome): (13) Asthma: QUALIFIERS: Asthma severity: mild Asthma persistence: intermittent Asthma complication type: uncomplicated Qualified Code(s): J45.20 - Mild intermittent asthma, uncomplicated COMMENT: no inhaler needed PLAN: Plan After discussing the patient's diagnosis and treatment plan options, patient wishes to proceed with surgical management. I have discussed with the patient the risks, benefits, and alternatives of the procedure which include but are not limited to risks of anesthesia, bleeding, infection, possible damage to bowel, bladder, or surrounding vasculature which could lead to additional surgery to evaluate any complications. Patient agrees to procedure and wishes to proceed. ACOG/uptodate references given for additional information regarding procedure. plan for primary section and bilteral salpingectomy
[2023-07-08 07:14] LABS: AST(SGOT) 10 U/L (15-37); Alanine Aminotransfer ALT/SGPT 12 U/L (13-56); Creatinine, Serum 0.61 mg/dL (0.55-1.02); EST Glomerular Filtration Rate 125 mL/min (>60); Est Glom Filt Rate - Afr Amer 151 mL/min (>60); Estimated Creatinine Clearance 192.74 ml/min; Uric Acid 4.3 mg/dL (2.6-6.0)
--- NOTE | 2023-07-08 07:16 | DCINST_ITS ---
Discharge Instructions Diet Discharge Diet: No restrictions Activity Discharge Activity: May Not Drive (for 2 weeks or while taking narcotic pain medications.), May Shower and May Take a Tub Bath (in 7 days.) May resume sexual activity in: 4-6 weeks Weight Bearing Status: Full weight bearing Lifting Restrictions: 20 pounds Dressing / Incision Call your doctor if your incision/area has: Continuous Slow Oozing, Sudden Increased Bleeding, Increased Pain/ Swelling, Increased Redness and Foul Smelling Discharge Call your doctor if you observe: Fever of 101 or Higher and Using more than 1 pad per hour Suture Line Care: Avoid Pulling/Pushing and Avoid Pinching/Bending Cleanse incision/area with: Soap & Water and Keep Dressing Clean & Dry Follow Up Care Please Follow Up With: Bernice Gonzales DO When: Call [phone] to make an appointment for an incision check in 1-2 weeks. Test Results: Test results from this visit will be discussed in further detail at your follow- up appointment, if applicable. Discharge Plan Admission Admit Date/Time: 07/08/23 05:20 Primary Reason for Your Visit: section and tubal ligation Attending Provider: Bernice Gonzales Primary Care Provider: Yusuf Gan Discharge Orders/Prescriptions Prescriptions: New ibuprofen 800 mg tablet 800 mg PO Q8H PRN (Reason: pain) Qty: 30 0RF Continued PNV Tabs 20-1 20 mg iron- 1 mg tablet 1 tab PO DAILY magnesium 250 mg tablet 250 mg PO DAILY albuterol sulfate 90 mcg/actuation HFA aerosol inhaler 1 puff inhalation ONCE PRN (Reason: asthma) ferrous sulfate [Feosol] 325 mg (65 mg iron) tablet 325 mg PO DAILY Discontinued cephalexin 500 mg capsule 500 mg PO Q6 Qty: 28 4RF Rx Instructions: take four times daily x 7 days and then once daily for remainder of Referrals / Follow Up: Yusuf Gan DO [Primary Care Provider] - Disposition Disposition (needs filled in before D/C Order can be placed): Home, Self Care
[2023-07-08] MEDS: Cefazolin 3 GM in 0.9% Normal Saline (100mL Bag) 100 ML IV (07:22)
[2023-07-08 07:56] LABS: Protein, Urine (Random) 16.9 mg/dL (<11.9); Protein:Creat Ratio 142 mg/g CRE (0-200)
[2023-07-08] MEDS: Ondansetron 4 MG/2 ML Vial IV (08:03)
--- NOTE | 2023-07-08 08:09 | FALS_PTH ---
PATHOLOGY RESULTS PATIENT: SHAKIRA THOMPSON LOC: [facility] U#:[id number] AGE/SX: 27/F ROOM: WP004 RE07/08/[address]: Dr. Bernice Gonzales DO : 1995 BED: 1 DIS: 07/11/2023 SPEC #: [id number] RECD: 07/08/23 11:58 STATUS: KENYA URMILA #: [id number] AIRAM: 07/08/23 08:[address]: Bernice Gonzales DEPT: SURGICAL PATHOLOGY RECD BY: Alyce Lee ENTERED: 07/08/23 11:58 SP TYPE: FALL TUBES OTHR DR: Dr. Yusuf Gan DO Tissues: Fallopian tube Procedures: Surgery Specimen Level II HEADER OPERATION: Tubal ligation PRE-OP DIAGNOSIS: Sterilization TISSUE SUBMITTED: Fallopian tubes, suture in right tube MICROSCOPIC DIAGNOSIS Right fallopian tube, salpingectomy: Complete cross-section of fallopian tube with no pathologic change. Left fallopian tube, salpingectomy: Complete cross-section of fallopian tube with no pathologic change. AM:paulino 07/09/2023 MICROSCOPIC DESCRIPTION Slides are reviewed. GROSS DESCRIPTION Received in fixative is one container labeled with the patient's name and designated bilateral fallopian tubes, suture right tube. The specimen consists of bilateral fallopian tubes including fimbrial ends. The right fallopian tube measures 7.5 cm in length and 1.0 cm in diameter and left fallopian tube measures 9.0 cm in length and 1.5 cm in diameter. Sections reveal unremarkable cut surfaces. Vacuum System Tester sections are submitted in two cassettes as follows: 1 - right fallopian tube, 2 - left fallopian tube. / GISSELL:paulino 07/08/2023 TC:4 CPT: 33922 x2
[2023-07-08] MEDS: Oxytocin 15 Units/NS 250ml 15 UNITS/250 ML IV.SOLN 83 UNITS IV (08:32)
--- NOTE | 2023-07-08 08:33 | OP.PCM_ITS ---
Assessment & Plan (1) Elevated BP without diagnosis of hypertension: COMMENT: PEC labs negative. headache improved with tylenol. discouraged motrin use in . has bp cuff at home and has appt in office tomorrow for follow up. (2) Vaginal discharge during : COMMENT: genital culture rapid bv in office. (3) Anemia in preg-unspec: COMMENT: staring OTC iron. improved CBC on repeat (4) Anxiety: COMMENT: no meds. Used lexapro in past. Stable (5) Contraception management: QUALIFIERS: Contraceptive encounter type: sterilization Qualified Code(s): Z30.2 - Encounter for sterilization COMMENT: Wants pp BS. Needs title 19 signed (6) UTI (urinary tract infection) during : COMMENT: has had multiple infections, recommend daily keflex for remainder of . (7) History of third degree perineal laceration: COMMENT: consider 39 week IOL, growth at 36 wk (8) History of macrosomia in in prior , currently : COMMENT: 30 wk: 98%. Repeat 4 weeks: 34 wk:99% (9) Rubella non-immune status, antepartum: COMMENT: equivocal. offer PP (10) : QUALIFIERS: Weeks of gestation: 36 weeks Qualified Code(s): Z3A.36 - 36 weeks gestation of COMMENT: gbs neg, Desires NIPT, nl anatomy (11) Supervision of high risk in first trimester: COMMENT: PRR LORETTA 07/29/23 GISELLA Koch (AJ custody of cousin). - Wes (12) PCOS (polycystic ovarian syndrome): (13) Asthma: QUALIFIERS: Asthma severity: mild Asthma persistence: intermittent Asthma complication type: uncomplicated Qualified Code(s): J45.20 - Mild intermittent asthma, uncomplicated COMMENT: no inhaler needed Maternal Data Information LORETTA Calculator Estimated Delivery Date Method Current WG Current Estimate 07/29/23 Ultrasound #1 37w 0d Other Estimates 07/13/23 LMP (Certain) 39w 2d Final LORETTA: 07/29/23 Details Operative Information Date of Procedure: 07/08/23 Pre-Operative Diagnosis: 27 y/o @ 37 weeks, PIH, history of 3rd degree laceration, suspected macrosomia, desires permanent sterilization Post-Operative Diagnosis: 27 y/o @ 37 weeks, PIH, history of 3rd degree laceration, suspected macrosomia, desires permanent sterilization Indications for : Desires elective sterilization Classification: Scheduled Procedure Type: low transverse gate keeper #1: Gayathri Wright Type of Anesthesia: Spinal Anesthesiologist: Fortunato Garcia Antibiotic Given: Ancef 3 grams IV x1 Drain: Diamond to straight drain Estimated Blood Loss: 400cc Procedure Start Time: 07:43 Procedure Stop Time: 08:16 Time of Delivery: 07:46 Findings Description of Procedure: Spinal anesthesia was placed without difficulty. Diamond catheter was placed. The patient was placed in the dorsal supine position with leftward tilt. Patient was prepped and draped in the normal sterile fashion. Pfannenstiel skin incision was made with the scalpel and carried through to the underlying layer of fascia with the scalpel. Fascia was nicked in the midline and the incision extended laterally. The rectus bellies were dissected off superiorly and inferiorly with out complication both sharply and bluntly. The peritoneum was entered digitally. The incision was stretched and a low transverse uterine incision was made with the scalpel. The 's head was delivered atraumatically followed by the anterior and posterior shoulders without complication the rest of the delivered. The cord was clamped and cut and the infant was handed off to awaiting nurse. The placenta was delivered spontaneously immediately following and was noted to be intact and have a three- vessel cord. The uterus was exteriorized cleared of all clots and debris, and the incision was closed in a double layer closure using #1 Vicryl and #1 Monocryl. The ovaries and fallopian tubes were noted to be within normal limits. The right fallopian tube was elevated and the underlying mesosalpinx was cauterized and cut to the level of the uterus and the tube passed off the field. The same was performed on the left side. The uterus was returned to the maternal abdomen and gutters were cleared of all clots and debris. The peritoneum was closed with 3-0 Monocryl in a running fashion. Gloves were changed prior to fascial closure. Fascia was closed with 0 PDS in a running fashion. Subcutaneous tissue was copiously irrigated and the skin was closed with 3-0 Monocryl in a subcuticular fashion. Mepilex dressing was applied without complication. Patient was taken to recovery in stable condition. weight, 9 lbs 6 oz Presentation: Positive for Vertex Amniotic Membrane Rupture Type: Artificial Amniotic Fluid Description: Clear Placental Delivery Description: Manual Removal Placenta Disposition: [facility] Cord Vessel Description: 3 Vessels Cord Entanglement: None Infant A Gender: Male (1 minute): 9 (5 minute): 10 Delayed Cord Clamping: Yes Complications Risks of Surgery Discussed w/Patient: Bleeding, Anesthesia Risks, Infection, Need for Future C-Sections, Permanency, Failure Rate of 1 to 2%, Injury to surrounding structure(s) including bowel and bladder and Availability of other non-permanent control options Multi Select Codes Urinary/Genital Urinary/Genital CPT Codes: 56678 C/S+TL
[2023-07-08 08:36] LABS: Syphilis Antibodies Non-reactive
[2023-07-08 09:29] LABS: Pathology Specimen OB SEE PATHOLOGY REPORT
[2023-07-08] MEDS: Nalbuphine 10 MG/ML Ampul 5 MG IV (10:05)
[2023-07-08] MEDS: Ketorolac 30 MG/ML Syringe IV ×3 (10:20→21:31)
[2023-07-08] MEDS: Lactated Ringers 1,000 ML 100 ML IV (11:46)
[2023-07-08] MEDS: MEASLES,MUMPS,RUBELLA VACC/PF 0.5 ML SC (17:58)
[2023-07-08] MEDS: Enoxaparin 40 MG/0.4 ML Syringe SC (19:04)
[2023-07-08] MEDS: 0.9% Saline Lock 10 ML Syringe IV (21:30)
[2023-07-09] MEDS: Acetaminophen 500 MG Tablet 1000 MG PO ×4 (00:03→19:03)
[2023-07-09 02:00] VITALS: PULSE 81; RESP 18; O2SAT 96
[2023-07-09] MEDS: Ketorolac 30 MG/ML Syringe IV (04:19)
[2023-07-09] MEDS: 0.9% Saline Lock 10 ML Syringe IV (04:21)
[2023-07-09 04:24] VITALS: BP 119/62; PULSE 87; RESP 15; TEMP 36.7; O2SAT 95
[2023-07-09 05:36] LABS: Hematocrit 30.3 % (37-47); Hemoglobin 9.7 g/dL (12.0-15.0); Mean Corpuscular Hgb 26.4 pg (27.0-32.0); Mean Corpuscular Volume 82.3 fL (81-99); Mean Platelet Vol. 9.9 fl (6.2-12.0); Platelet Count 163 K/mm3 (150-450); RBC Distribution Width CV 15.6 % (11.6-14.6); RBC Distribution Width SD 46.3 fl (35.1-43.9); Red Blood Count 3.68 M/mm3 (4.2-5.4); White Blood Count 11.3 K/mm3 (4.4-11.0)
[2023-07-09] MEDS: Enoxaparin 40 MG/0.4 ML Syringe SC ×2 (06:51→19:04)
[2023-07-09 06:53] VITALS: PULSE 86; RESP 18; O2SAT 99
[2023-07-09 07:35] VITALS: BP 140/77; PULSE 87; RESP 16; TEMP 36.6
--- NOTE | 2023-07-09 08:03 | PCM.PN.OB ---
Subjective Subjective Patient doing well without complaints. Tolerating PO. Ambulating and voiding without difficulty. Feeding well/baby SCN for low blood sugar.. Denies chest pain, shortness of breath, calf pain/swelling, fevers, chills, lightheadedness. Objective Data Objective Data Vital Signs: Vital Signs Temp Pulse Resp BP Pulse Ox O2 Del Method 98 F 87 16 140/77 H 99 Room Air 07/09/23 07:35 07/09/23 07:35 07/09/23 07:35 07/09/23 07:35 07/09/23 06:53 07/09/23 07:35 Oxygen Delivery Method Room Air Weight: 277 lb 12.519 oz Body Mass Index (BMI) 43.4 Intake & Output: Intake and Output for Last 24 Hours 07/07/23 07/08/23 07/09/23 23:59 23:59 23:59 Intake Total 3257.5 / 3257.5 Output Total 1350 / 1350 500 / 500 Balance 1907.5 / 1907.5 -500 / -500 Lab / Micro Data 07/09/23 05:23 07/08/23 05:45 Labs: Laboratory Results - last 24 hr 07/08/23 05:45: Syphilis Total Ab Non-reactive 07/09/23 05:23: WBC 11.3 H, RBC 3.68 L, Hgb 9.7 L, Hct 30.3 L, MCV 82.3, MCH 26.4 L, MCHC 32.0, RDW Std Deviation 46.3 H, RDW Coeff of Zandra 15.6 H, Plt Count 163, MPV 9.9 ROS Constitutional Constitutional: Reports systems reviewed and no addt'l complaints, except as documented Cardiovascular Cardiovascular: Reports as per HPI Respiratory/Chest Respiratory/Chest: Reports as per HPI Genitourinary Genitourinary: Reports as per HPI Physical Exam Const alert and oriented x3 HEENT normocephalic Eyes PERRL Neck full ROM Resp normal respiratory effort GI soft to palpation GI Narrative: FF below U. Dressing dry and intact Palpation: tender other (appropriately) Assessment & Plan (1) delivery delivered: COMMENT: 07/08/23 PCS BS JV macrosomia. Octavio (2) Anxiety: COMMENT: no meds. Used lexapro in past. Stable (3) Rubella non-immune status, antepartum: COMMENT: equivocal. offer PP PLAN: Plan s/p LTCS PPD #1 1. routine post care 2. breast feeding- support given 3. rh positive 4. rubella nonimmune
[2023-07-09] MEDS: Ibuprofen 600 MG Tablet PO ×3 (10:08→22:19)
[2023-07-09] MEDS: Senna/Docusate Sodium 1 Tablet PO (10:09)
[2023-07-09 13:27] VITALS: BP 121/73; PULSE 91; RESP 16; TEMP 36.5; O2SAT 99
[2023-07-09 19:48] VITALS: BP 134/62; PULSE 88; RESP 16; TEMP 36.6; O2SAT 98
[2023-07-10] MEDS: Acetaminophen 500 MG Tablet 1000 MG PO ×4 (01:12→22:03)
[2023-07-10 03:16] VITALS: BP 148/84; PULSE 80; RESP 18
[2023-07-10] MEDS: Ibuprofen 600 MG Tablet PO ×3 (05:12→19:37)
[2023-07-10] MEDS: Enoxaparin 40 MG/0.4 ML Syringe SC ×2 (06:44→19:37)
[2023-07-10 07:00] VITALS: BP 148/84; PULSE 89; RESP 16; TEMP 36.3; O2SAT 99
--- NOTE | 2023-07-10 08:01 | PN.OBGYN_ITS ---
Subjective Subjective Patient doing well without complaints. Tolerating PO. Ambulating and voiding without difficulty. feeding well. Denies chest pain, shortness of breath, calf pain/swelling, fevers, chills, lightheadedness. Objective Data Objective Data Vital Signs: Vital Signs Temp Pulse Resp BP Pulse Ox O2 Del Method 97.4 F L 89 16 148/84 H 99 Room Air 07/10/23 07:00 07/10/23 07:00 07/10/23 07:00 07/10/23 07:00 07/10/23 07:00 07/10/23 07:00 Oxygen Delivery Method Room Air Weight: 277 lb 12.519 oz Body Mass Index (BMI) 43.4 Intake & Output: Intake and Output for Last 24 Hours 07/08/23 07/09/23 07/10/23 23:59 23:59 23:59 Intake Total 3257.5 / 3257.5 1.5 / 1.5 Output Total 1350 / 1350 500 / 500 0 / 0 Balance 1907.5 / 1907.5 -500 / -500 1.5 / 1.5 Lab / Micro Data 07/09/23 05:23 07/08/23 05:45 ROS Constitutional Constitutional: Reports systems reviewed and no addt'l complaints, except as documented Cardiovascular Cardiovascular: Reports systems reviewed and no addt'l complaints, except as documented Respiratory/Chest Respiratory/Chest: Reports systems reviewed and no addt'l complaints, except as documented Gastrointestinal Gastrointestinal: Reports systems reviewed and no addt'l complaints, except as documented Physical Exam Const alert, oriented x3 and no apparent distress HEENT Head and Scalp: atraumatic Resp normal respiratory effort Assessment & Plan (1) delivery delivered: COMMENT: 07/08/23 PCS BS JV macrosomia. Octavio (2) Anemia in preg-unspec: COMMENT: staring OTC iron. improved CBC on repeat (3) Anxiety: COMMENT: no meds. Used lexapro in past. Stable (4) Contraception management: QUALIFIERS: Contraceptive encounter type: sterilization Qualified Code(s): Z30.2 - Encounter for sterilization COMMENT: Wants pp BS. Needs title 19 signed (5) History of macrosomia in in prior , currently : COMMENT: 30 wk: 98%. Repeat 4 weeks: 34 wk:99% (6) Rubella non-immune status, antepartum: COMMENT: equivocal. offer PP (7) PCOS (polycystic ovarian syndrome): (8) Asthma: QUALIFIERS: Asthma severity: mild Asthma persistence: inter mittent Asthma complication type: uncomplicated Qualified Code(s): J45.20 - Mild intermittent asthma, uncomplicated COMMENT: no inhaler needed PLAN: Plan s/p LTCS PPD # 2 1. routine post care 2. breast feeding- support given 3. rh positive 4. rubella immune monitor bps start medication if needed
[2023-07-10 09:44] VITALS: BP 150/80; PULSE 86; RESP 16; O2SAT 99
[2023-07-10] MEDS: NIFEdipine 30 MG Tablet PO (10:52)
[2023-07-10 12:34] VITALS: BP 139/83; PULSE 97; RESP 16; TEMP 36.3; O2SAT 96
[2023-07-10 15:42] VITALS: BP 146/78; PULSE 88; RESP 16; TEMP 36.7; O2SAT 98
[2023-07-10 20:05] VITALS: BP 142/82; PULSE 98; RESP 16; TEMP 37.1; O2SAT 98
[2023-07-11] MEDS: Ibuprofen 600 MG Tablet PO ×2 (01:34→08:27)
[2023-07-11 01:35] VITALS: BP 150/85; PULSE 94; TEMP 36.1; O2SAT 99
[2023-07-11] MEDS: Acetaminophen 500 MG Tablet 1000 MG PO (04:14)
[2023-07-11 04:40] VITALS: BP 150/87; PULSE 89; RESP 16; TEMP 36.3; O2SAT 100
--- NOTE | 2023-07-11 07:48 | PCM.PN.OB ---
Subjective Subjective Patient doing well without complaints. Tolerating PO. Ambulating and voiding without difficulty. Feeding well. Denies chest pain, shortness of breath, calf pain/swelling, fevers, chills, lightheadedness. Objective Data Objective Data Vital Signs: Vital Signs Temp Pulse Resp BP Pulse Ox O2 Del Method 97.3 F L 89 16 150/87 H 100 Room Air 07/11/23 04:40 07/11/23 04:40 07/11/23 04:40 07/11/23 04:40 07/11/23 04:40 07/11/23 04:40 Oxygen Delivery Method Room Air Weight: 277 lb 12.519 oz Body Mass Index (BMI) 43.4 Intake & Output: Intake and Output for Last 24 Hours 07/09/23 07/10/23 07/11/23 23:59 23:59 23:59 Intake Total 1.5 / 1.5 Output Total 500 / 500 0 / 0 Balance -500 / -500 1.5 / 1.5 Lab / Micro Data Attestation: I reviewed the patient's lab results. 07/09/23 05:23 07/08/23 05:45 ROS Constitutional Constitutional: Reports systems reviewed and no addt'l complaints, except as documented; Denies anorexia or headache(s) Cardiovascular Cardiovascular: Reports systems reviewed and no addt'l complaints, except as documented; Denies dizziness, dyspnea, nausea or tachypnea Respiratory/Chest Respiratory/Chest: Reports systems reviewed and no addt'l complaints, except as documented; Denies cough, dyspnea, shortness of breath at rest or tachypnea Gastrointestinal Gastrointestinal: Reports systems reviewed and no addt'l complaints, except as documented; Denies abdominal pain, constipation or nausea Genitourinary Genitourinary: Reports systems reviewed and no addt'l complaints, except as documented; Denies burning urination, difficulty urinating, dysuria, urinary frequency or urinary incontinence Musculoskeletal Musculoskeletal: Reports systems reviewed and no addt'l complaints, except as documented Integumentary Integumentary: Reports systems reviewed and no addt'l complaints, except as documented Neurologic Neurologic: Reports systems reviewed and no addt'l complaints, except as documented; Denies abnormal speech, dizziness or headache(s) Psychiatric Psychiatric: Reports systems reviewed and no addt'l complaints, except as documented Endocrine Endocrinology: Reports systems reviewed and no addt'l complaints, except as documented Hematologic/Lymphatic Hematologic/Lymphatic: Reports systems reviewed and no addt'l complaints, except as documented Physical Exam Const alert, oriented x3 and no apparent distress Neck full ROM Resp normal respiratory effort, normal air movement and no retractions Effort and Inspection: able to speak in complete sentences and symmetric chest movement GI soft to palpation Inspection: incision intact Bladder / Kidney Exam: bladder normal to palpation Uterus Palpation: uterus fundus Extremity normal to inspection and full ROM Psych mental status grossly normal, thought process normal and cooperative Assessment & Plan (1) delivery delivered: COMMENT: 07/08/23 PCS BS JV macrosomia. Octavio PLAN: s/p LTCS PPD # 3 1. routine post care 2. breast feeding- support given 3. rh positive 4. rubella immune 5. Discharge HOme (2) hypertension: PLAN: Procardia XL 60mg RTO in 1 week for BP check (3) Anemia in preg-unspec: COMMENT: staring OTC iron. improved CBC on repeat (4) Anxiety: COMMENT: no meds. Used lexapro in past. Stable (5) Contraception management: QUALIFIERS: Contraceptive encounter type: sterilization Qualified Code(s): Z30.2 - Encounter for sterilization COMMENT: Wants pp BS. Needs title 19 signed (6) History of macrosomia in in prior , currently : COMMENT: 30 wk: 98%. Repeat 4 weeks: 34 wk:99% (7) Rubella non-immune status, antepartum: COMMENT: equivocal. offer PP (8) PCOS (polycystic ovarian syndrome): (9) Asthma: QUALIFIERS: Asthma severity: mild Asthma persistence: intermittent Asthma complication type: uncomplicated Qualified Code(s): J45.20 - Mild intermittent asthma, uncomplicated COMMENT: no inhaler needed Charges/Coding Multi Select Codes Urinary/Genital Urinary/Genital CPT Codes: No Charge
--- NOTE | 2023-07-11 07:55 | PCM.DC.SUM ---
Providers Date of Admission: 07/08/23 Date of Discharge: 07/11/23 Primary Care Physician: Dr. Yusuf Gan DO Reason For Visit: PRIMARY /CSECTION DELIVERY Diagnosis Discharge Diagnosis (1) delivery delivered: Status: Acute Code(s): O82 - Encounter for delivery without indication Plan: s/p LTCS PPD # 3 1. routine post care 2. breast feeding- support given 3. rh positive 4. rubella immune 5. Discharge HOme (2) hypertension: Status: Acute Code(s): O16.5 - Unspecified maternal hypertension, complicating the puerperium Plan: Procardia XL 60mg RTO in 1 week for BP check (3) Anemia in preg-unspec: Status: Acute Code(s): O99.019 - Anemia complicating , unspecified trimester (4) Anxiety: Status: Acute Code(s): F41.9 - Anxiety disorder, unspecified (5) Contraception management: Status: Acute Code(s): Z30.9 - Encounter for contraceptive management, unspecified Qualifiers: Contraceptive encounter type: sterilization Qualified Code(s): Z30.2 - Encounter for sterilization (6) History of macrosomia in infant in prior , currently : Status: Acute Code(s): O09.299 - Supervision of with other poor reproductive or obstetric history, unspecified trimester (7) Rubella non-immune status, antepartum: Status: Acute Code(s): O09.899 - Supervision of other high risk pregnancies, unspecified trimester; Z28.39 - Other underimmunization status (8) PCOS (polycystic ovarian syndrome): Status: Chronic Code(s): E28.2 - Polycystic ovarian syndrome (9) Asthma: Status: Chronic Code(s): J45.909 - Unspecified asthma, uncomplicated Qualifiers: Asthma severity: mild Asthma persistence: intermittent Asthma complication type: uncomplicated Qualified Code(s): J45.20 - Mild intermittent asthma, uncomplicated Medications at Discharge Home Medications vitamins no.163-iron bis-gly 20 mg-folate no.10 1 mg tablet (PNV Tabs 20-1) 1 tab PO DAILY pegnancy 02/20/23 magnesium 250 mg tablet 250 mg PO DAILY 02/25/23 ferrous sulfate 325 mg (65 mg iron) tablet (Feosol) 325 mg PO DAILY 07/04/23 albuterol sulfate 90 mcg/actuation aerosol inhaler 1 puff inhalation ONCE PRN asthma 07/08/23 ibuprofen 800 mg tablet 800 mg PO Q8H PRN pain #30 tabs 07/08/23 nifedipine 30 mg tablet,extended release 24 hr (Procardia XL) 30 mg PO DAILY #30 tabs 07/10/23 oxycodone-acetaminophen 5 mg-325 mg tablet (Percocet) 1 tab PO Q6H PRN pain 7 days #10 tabs 07/10/23 nifedipine 30 mg tablet,extended release 24 hr (Procardia XL) 60 mg (2 x 30 mg) PO DAILY ##60 07/11/23 Hospital Course Operations section Procedures None Summary of Care Provided Minutes Spent on Discharge: 30 Hospital Course: Admitted for primary C/S for suspected macrosomia and history of 3rd degree laceration with previous . Course uneventful, started Procardia for elevated BP . Physical Exam Const alert and oriented x3 Neck full ROM Resp normal respiratory effort, no retractions and no use of accessory muscles GI normal to inspection, nondistended, normoactive bowel sounds Inspection: incision intact Extremity normal to inspection, full ROM and no calf tenderness Neuro moves all extremities Psych mental status grossly normal Weight / BMI Weight Weight: 277 lb 12.519 oz Body Mass Index (BMI) 43.4 ABG / Lab / Microbiology Data 07/09/23 05:23 07/08/23 05:45 D/C Instructions Discharge Diet: No restrictions May resume sexual activity in: 4-6 weeks Weight Bearing Status: Full weight bearing Call your doctor if your incision/area has: Continuous Slow Oozing, Sudden Increased Bleeding, Increased Pain/ Swelling, Increased Redness and Foul Smelling Discharge Call your doctor if you observe: Fever of 101 or Higher and Using more than 1 pad per hour Suture Line Care: Avoid Pulling/Pushing and Avoid Pinching/Bending Cleanse incision/area with: Soap & Water and Keep Dressing Clean & Dry Please Follow Up With: Bernice Gonzales DO When: Call [phone] to make an appointment for an incision check in 1-2 weeks. Meaningful Use Info Meaningful Use Diagnoses (Choose all that apply): None applicable Discharge Plan Admission Admit Date/Time: 07/08/23 05:20 Primary Reason for Your Visit: section and tubal ligation Attending Provider: Bernice Gonzales Primary Care Provider: Yusuf Gan Instructions Additional Instructions / Restrictions: follow up in office in 1 week for BP check Discharge Orders/Prescriptions Prescriptions: New ibuprofen 800 mg tablet 800 mg PO Q8H PRN (Reason: pain) Qty: 30 0RF oxycodone-acetaminophen [Percocet] 5-325 mg tablet 1 tab PO Q6H PRN (Reason: pain) 7 Days Qty: 10 0RF nifedipine [Procardia XL] 30 mg tablet extended release 24hr 30 mg PO DAILY Qty: 30 2RF nifedipine [Procardia XL] 30 mg tablet extended release 24hr 60 mg PO DAILY Qty: 60 2RF Continued PNV Tabs 20-1 20 mg iron- 1 mg tablet 1 tab PO DAILY magnesium 250 mg tablet 250 mg PO DAILY albuterol sulfate 90 mcg/actuation HFA aerosol inhaler 1 puff inhalation ONCE PRN (Reason: asthma) ferrous sulfate [Feosol] 325 mg (65 mg iron) tablet 325 mg PO DAILY Discontinued cephalexin 500 mg capsule 500 mg PO Q6 Qty: 28 4RF Rx Instructions: take four times daily x 7 days and then once daily for remainder of Referrals / Follow Up: Yusuf Gan DO [Primary Care Provider] - Disposition Disposition (needs filled in before D/C Order can be placed): Home, Self Care Charges/Coding Multi Select Codes Urinary/Genital Urinary/Genital CPT Codes: No Charge
[2023-07-11 08:14] VITALS: BP 153/93; PULSE 99; RESP 16; TEMP 36.5; O2SAT 98
[2023-07-11] MEDS: NIFEdipine 60 MG Tablet PO (08:27)
[2023-07-11] MEDS: Enoxaparin 40 MG/0.4 ML Syringe SC (08:28)
[2023-07-11 10:00] VITALS: BP 142/81; PULSE 104; RESP 16; O2SAT 99
--- NOTE | 2023-07-11 12:54 | CASEMGMT ---
Social Work Assessment Labor and Delivery Unit Patient Address:[address] [place] [address]. [place] [address] Phone number:[phone] Date of Referral: 07/08/23 Time of Referral:? 1104 Referred By: Bernice oGnzales Date of Intervention: ??07/11/23 Time of Intervention:? 1200 Reason for Referral:? anxiety Sw completed chart review and acknowledges social work consult entered due to maternal history of anxiety. Sw presented to bedside and introduced self to mother of baby (MOB- Kay) and father of baby (FOB- Wes). Sw explained reason for sw consult and explained sw role. Sw completed psychosocial assessment and provided list of resources for parents to review should any needs or concerns present themselves. History obtained from: medical records, MOB and FOB Household composition: Currently residing in the family home is SABRINA BUTTS, their two older children: August- 5 years old, and Jagdeep- 2.5 years old (adopted), and now baby. Parents deny any concerns with their housing at this time, reporting that it is safe and secure and they are not in jeopardy of losing it. Patient's parent/guardian status:? ?Parents state that they grew up together and have known each other since they were little kids. FOB states that they have been in a relationship now for 3 years. No concerns of domestic violence or intimate partner violence reported at this time. Medical History: ?BECKIE is 3, para 1- now 2 following labor and delivery of . BECKIE received routine care during with [place]. BECKIE delivered baby via delivery at 37 weeks gestation on 07/08/23. Baby boy, named Octavio Chen, was born weighing 9lb 6oz and his apgars were 9 and 10 at one and five minutes of life, respectfully. Baby did require admission to [facility] due to macrosomia. MOB and baby have made progress towards identified medical goals and may be eligible for discharge on this date. MOB states that baby will be followed by Dr. Mcclain for pediatrics. Educational Status:? MOB obtained some college. FOB states that he completed the 11th grade. No concerns with reading, learning or comprehension. Financial Status: BECKIE is a stay at home mom. SABRINA works for [employer] and is able to take some time off of work now that baby has been born Infant Supplies:?? Parents have obtained all necessary baby supplies, including: car seat, safe sleep space, clothes, diapers, wipes and a breast pump. Childcare/Caregiver(s):? BECKIE is the primary caregiver to baby along with FOB when he is not working. Transportation:?? Both parents have their drivers license and reliable means of transportation. No barriers at this time. Programs/Agencies Involved: BECKIE is connected to insurance through [employer] ([place]), [employer] and is receptive to getting connected to [employer] once baby is medically ready for discharge from the [facility]. ??? Children Services/Legal Issues:???No history of involvement. No issues or concerns warranting a referral to be made at this time. Behavioral Health Issues: ??Mental Health History:??FOB denies mental health history. BECKIE has been diagnosed with anxiety, is not prescribed medications. BECKIE denies experiencing any baby blues or depression/ anxiety following the delivery of her first baby. ? Substance Use History:?BECKIE denies substance use prior to and during . ? Family History:??BECKIE denies family history of addiction issues, but does state that her sister has been diagnosed with bipolar. ??? Drug Screens: ??No urine screens observed in chart review. Family/Social Stressors:? Parents deny any stressors or issues at this time. Support Systems: BECKIE states that her mom and paternal grandma are both good supports for them. Depression/Shaken Baby/Safe Sleeping:? Sw educated parents on signs and symptoms of baby blues and depression and anxiety to be on the lookout for during BECKIE's period. Sw explained that BECKIE is at higher risk of experiencing symptoms due to her mental health history. Parents express understanding. Sw educated parents on shaken baby prevention and ABCs of safe sleep. Parents express understanding. ASSESSMENT:? MOB and baby admitted following labor and delivery. Baby transferred to [facility] due to macrosomia. Both parents made and maintained eye contact during assessment. MOB and FOB in pleasant and upbeat mood, excited for discharge today. MOB observed provided loving and supportive hands on care to . Parents talkative during assessment and engaged appropriately with sw. Parents receptive to sw involvement and support. PLAN:? MOB and baby to be discharged when medically ready. ?No other services requested or indicated. Veto Triana MSW, LINUX SYSTEMS ANALYST
--- NOTE | 2023-09-16 11:58 | NURSING ---
Updated para section of OB Admission Profile to accurately match record
== END 2023-07-11 13:14 | disposition home or self-care (01) | DRG 539 ==
PROVIDERS: Admitting Provider Obstetrics & Gynecology; PCP Family Medicine; Referring Provider Obstetrics & Gynecology; Visit Provider Obstetrics & Gynecology
PROC: 10D00Z1 Extraction of Products of Conception, Low, Open Approach (ICD-10-PCS; CPT 59514; principal; 2023-07-08 07:00)
DX: O13.4 Gestational [pregnancy-induced] hypertension without significant proteinuria, complicating childbirth (principal); D64.9 Anemia, unspecified; J45.20 Mild intermittent asthma, uncomplicated; O13.5 Gestational [pregnancy-induced] hypertension without significant proteinuria, complicating the puerperium; Z37.0 Single live birth; O99.52 Diseases of the respiratory system complicating childbirth; Z30.2 Encounter for sterilization; O76 Abnormality in fetal heart rate and rhythm complicating labor and delivery; O99.02 Anemia complicating childbirth; Z3A.37 37 weeks gestation of pregnancy; Z87.440 Personal history of urinary (tract) infections; Z87.891 Personal history of nicotine dependence
CPT/HCPCS: 36415; 59025; 59050; 82565; 82570; 84156; 84450; 84460; 84550; 85025; 85027; 86780; 86850; 86900; 86901; 88302; 99221; J7120; A4216; G0378; J2405

== ENCOUNTER 2023-08-08 21:03 | Emergency (ER) | payer MEDICAID, SELFPAY ==
[2023-08-08 21:04] VITALS: BP 120/74; PULSE 112; RESP 18; TEMP 37.4; O2SAT 97; BMI 40.4
--- NOTE | 2023-08-08 21:33 | EDS_ITS ---
HPI History of Present Illness Chief Complaint: Cold Sx Informant: patient Narrative Narrative: Presents congestion myalgias chills and headache today. No sick contacts. 1 month . Vaccinated for influenza. No COVID vaccination has had both COVID and influenza in the past. No dyspnea. Currently nursing. Here with her child for a well check. Had preeclampsia during currently on blood pressure medicines. No previous hypertension. Denies leg swelling dizziness right upper quadrant pain. No blurry vision. PFSH PFSH Medical History Anxiety Asthma Encounter for IUD removal Gestational HTN History of third degree perineal laceration Infertility PCOS (polycystic ovarian syndrome) Home Medications vitamins no.163-iron bis-gly 20 mg-folate no.10 1 mg tablet (PNV Tabs 20-1) 1 tab PO DAILY pegnancy 02/20/23 [History Last Taken 07/07/23 17:00 1 TAB] magnesium 250 mg tablet 250 mg PO DAILY 02/25/23 [History Last Taken 07/07/23 17:00 250 mg] ferrous sulfate 325 mg (65 mg iron) tablet (Feosol) 325 mg PO DAILY 07/04/23 [History Last Taken 07/06/23] albuterol sulfate 90 mcg/actuation aerosol inhaler 1 puff inhalation ONCE PRN asthma 07/08/23 [History Last Taken Unknown] nifedipine 30 mg tablet,extended release 24 hr (Procardia XL) 30 mg PO DAILY #30 tabs 07/10/23 [Rx Last Taken Unknown] nifedipine 30 mg tablet,extended release 24 hr (Procardia XL) 60 mg (2 x 30 mg) PO DAILY ##60 07/11/23 [Rx Last Taken Unknown] labetalol 100 mg tablet 100 mg PO BID #60 tabs 07/15/23 [Rx Last Taken Unknown] Allergy/AdvReac Type Severity Reaction Status Date / Time No Known Allergies Allergy Verified 08/08/23 21:04 Surgical History H/O dilation and curettage History of gynecologic surgery S/P section S/P tubal ligation Social History household members: spouse and children housing: house number of children: 2 pets and animals: No Smoking Status: Former smoker second hand exposure: No alcohol intake: never substance use type: does not use caffeine: Yes what type of physical activity do you participate in: none seatbelt use: always do you feel safe at home: Yes 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 ROS ROS ED Constitutional Constitutional ED: Reports chills; Denies fever(s) or sweats Eyes Eyes: Denies blurry vision or change in vision ENT ENT ED: Denies dysphagia or sore throat Cardiovascular Cardiovascular: Denies chest pain, leg edema, palpitations or racing heartbeat Respiratory/Chest Respiratory/Chest: Denies cough, dyspnea or dyspnea on exertion Gastrointestinal Gastrointestinal: Denies abdominal pain, diarrhea, nausea or vomiting Genitourinary Genitourinary ED: Denies dysuria, hematuria or urinary frequency Musculoskeletal Musculoskeletal: Reports myalgias; Denies back pain, extremity pain or neck pain Integumentary Denies rash or wounds Neurologic Neurologic: Reports headache(s); Denies paresthesias or weakness EXAM Physical Exam Const Vital Signs: 08/08/23 21:04 08/08/23 21:41 08/08/23 22:55 Temperature 99.4 F H 97.2 F L Temperature Source Temporal Pulse Rate 112 H 111 H Respiratory Rate 18 16 Respiratory Effort Normal Respiratory Pattern Normal Blood Pressure 120/74 138/71 H Blood Pressure Mean 89 93 Pulse Ox 97 97 Oxygen Delivery Method Room Air Positive well nourished and well developed Constitutional Narrative: Nontoxic. General Appearance ED: well developed and NAD HEENT Reports TM's clear and moist mucous membranes HEENT Narrative: TMs normal bilaterally. normocephalic and atraumatic Tympanic Membrane ED: Yes TM's clear Eyes PERRL, EOMs intact bilaterally and conjunctivae normal General Eye ED: Yes normal appearance of both eyes Neck no lymphadenopathy and supple Neck Narrative: No meningismus. General: Negative for tenderness Chest Wall Chest: Negative for tenderness Resp normal respiratory effort and normal air movement Effort and Inspection: symmetric chest movement; Negative for respiratory distress Cardio regular rate, regular rhythm and no murmurs Rate: tachycardic Peripheral Pulses: pulses 2+ throughout GI normal to inspection, nondistended, normoactive bowel sounds and non-tender Palpation: Negative for guarding or rebound tenderness present Back/Spine no CVA tenderness and no thoracic nor lumbar tenderness Extremity normal to inspection General Extremety ED: Negative for edema or tenderness General Extremity: Negative for edema Neuro oriented x3, CN's II-XII intact bilaterally and no sensory deficits noted Sensorium / Orientation: awake and alert Skin no rashes or lesions noted and no wounds MDM MDM MDM Narrative Medical decision making narrative: Interventions / MDM: Differential diagnosis: Viral syndrome Diagnosis considered but do not suspect: Preeclampsia however normal blood pressures. No clinical meningitis. My EKG interpretation: N/A Imaging independently reviewed and interpreted by myself: N/A External documents reviewed: N/A Test considered but not ordered:N/A ED course: Temp of 99.4. Viral syndrome with myalgias and chills and headache. No clinical meningitis. Normal blood pressure. Will check COVID flu and RSV. COVID returned positive negative flu, negative RSV. Day 1 of symptoms. Discussed Paxlovid, however discussed recent studies showed no improvement with symptoms. Patient declines treatment. Discussed Tylenol as needed. Discussed 21-year-old female presenting wearing her mask avoid spreading especially having currently over 30 days. Outpatient follow-up. Return precautions. All questions were answered. Re-evaluation: stable Disposition discussed with patient/family/significant other: Patient Case discussed with consulting clinician: N/A This note was generated with [employer] dictation software. It may contain incorrect words, spelling, and punctuation that were not noted in checking the note before signing. Discharge Plan Triage Chief Complaint: Cold Sx ED Provider: Vitaliy Dodd Dx/Rx/DC Orders Clinical Impression: COVID-19 virus infection Instructions: Coronavirus Disease 2019 (COVID-19): Caring for Yourself or Others Prescriptions: No Action PNV Tabs 20-1 20 mg iron- 1 mg tablet 1 tab PO DAILY labetalol 100 mg tablet 100 mg PO BID Qty: 60 0RF magnesium 250 mg tablet 250 mg PO DAILY albuterol sulfate 90 mcg/actuation HFA aerosol inhaler 1 puff inhalation ONCE PRN (Reason: asthma) nifedipine [Procardia XL] 30 mg tablet extended release 24hr 30 mg PO DAILY Qty: 30 2RF nifedipine [Procardia XL] 30 mg tablet extended release 24hr 60 mg PO DAILY Qty: 60 2RF ferrous sulfate [Feosol] 325 mg (65 mg iron) tablet 325 mg PO DAILY Primary Care Provider: Yusuf Gan Referrals: Yusuf Gan DO [Primary Care Provider] - 1 Week Activity Restrictions/Additional Instructions: COVID-19 positive. Negative flu and RSV. Use Tylenol as needed. Facemask to decrease exposure. Monitor for respiratory symptoms to return otherwise follow- up with your doctor. Disposition Disposition: Home, Self Care Discharge Date/Time: 08/08/23 22:56
--- OUTSIDE RECORDS SUMMARY | 2023-08-08 21:42 | XMS RPT_ITS | CCD ---
Author Name Unknown Address [address] [place] [address] Organization [facility] Care Team Providers Care Engraved Roller Inspector Name Role Phone ULI ALVAREZ MD Primary Care Physician [phone] MEI Attending Unavaila ULI Douglas Primary Care Unavailable Yusuf Gan Primary Care Provider YUSUF GAN Primary Care Unavailable Yusuf Gan DO Primary Care Provider YUSUF GNA Attending Unavailable YUSUF GAN Primary Care Unavailable [...] Drug Class(es) Dates Sig (Normalized) Sig (Original) [id number] 200 actuat albuterol 0.09 mg/actuat metered dose [...] 16:06-0400 Body height 170.2 cm Yusuf Gan [employer] Work Phone: [facility] 10-07-2022 16:06-0400 Body mass index (BMI) [Ratio] 40.1 kg/m2 Yusuf Bettencourtezequielyunier [employer] Work Phone: [facility] 10-07-2022 16:06-0400 Body temperature 97.11 [degF] Yusuf Bettencourtezequielyunier [employer] Work Phone: [facility] 10-07-2022 16:06-0400 Body weight 116.12 kg Yusuf Bettencourtremberto [employer] Work Phone: [facility] 10-07-2022 16:06-0400 Diastolic blood pressure 69 mm[Hg] Yusuf Bettencourtremberto [employer] Work Phone: [facility] 10-07-2022 16:06-0400 Heart rate 72 /min Yusuf Gan DO Work Phone: [facility] 10-07-2022 16:06-0400 SaO2% (BldA) [Mass fraction] 99 % Yusuf Gan DO Work Phone: [facility] 10-07-2022 16:06-0400 Systolic blood pressure 108 mm[Hg] Yusuf Gan DO Work Phone: [facility] 08-16-2022 07:41-0500 Body temperature 98.1 [degF] Krislyn Aberegg PA Work Phone: [facility] 08-16-2022 07:41-0500 Body weight 112.58 kg Krislyn Aberegg PA Work Phone: [facility] 08-16-2022 07:41-0500 Diastolic blood pressure 76 mm[Hg] Krislyn Aberegg PA Work Phone: [facility] 08-16-2022 07:41-0500 Heart rate 111 /min Krislyn Aberegg PA Work Phone: [facility] 08-16-2022 07:41-0500 Respiratory rate 18 /min Krislyn Aberegg PA Work Phone: [facility] 08-16-2022 07:41-0500 SaO2% (BldA) [Mass fraction] 99 % Krislyn Aberegg PA Work Phone: [facility] 08-16-2022 07:41-0500 Systolic blood pressure 132 mm[Hg] Krislyn Aberegg PA Work Phone: [facility] 04-02-2022 21:02-0400 Body height 170.[address] HAMIDA GASTON MD [facility] 04-02-2022 21:02-0400 Body temperature 98.78 [degF] DR HAMIDA GASTON MD [facility] 04-02-2022 21:02-0400 Body weight 113.[address]MAIDA GASTON MD [facility] 04-02-2022 21:02-0400 Diastolic blood pressure 84 mm[Hg] DR HAMIDA GASTON MD [facility] 04-02-2022 21:02-0400 Heart rate 82 /min DR HAMIDA GASTON MD [facility] 04-02-2022 21:02-0400 Respiratory rate 18 /min DR HAMIDA GASTON MD [facility] 04-02-2022 21:02-0400 Systolic blood pressure 131 mm[Hg] DR HAMIDA GASTON MD [facility] Encounters Encounter Date Encounter Type Care Provider Facility Start: 03-10-2023 End: 03-10-2023 ambulatory PRIMARY CARE [facility] Start: 10-07-2022 End: 10-07-2022 ambulatory YUSUF GAN [facility] Start: 10-07-2022 End: 10-07-2022 Office outpatient visit 15 minutes Yusuf Gan DO Work Phone: [facility] Family Medicine Procedures Date Procedure Procedure Detail Performing Clinician Start: 08-16-2022 STREP A MOLECULAR (POC) Estevan Medina PA Work Phone: None (qualifier value) DR ROSALIO GASTON MD Plan of Treatment Date Care Activity Detail Author Start: 2046 Zoster Vaccines (1 of 2) Zoste r Vaccines (1 of 2) [facility] Start: 06-17-2032 DTaP/Tdap/Td Vaccine s (9 - Td or Tdap) DTaP/Tdap/Td Vaccines (9 - Td or Tdap) [facility] Start: 04-09-2023 End: 04-09-2023 Patient encounter procedure 04/09/2023 Office Visit Family Medicine Yuusf Gan DO [address] [place] [id number] [facility] Start: 02-07-2023 Influenza vaccination Influenz a Vaccine (Season Ended) [facility] Start: 06-09-2022 DEPRESSION ASSESSMENT DEPRESSION ASS ESSMENT [facility] Start: 02-07-2022 Influenza vaccination INFLUENZA (#1) [facility] Start: 2017 PAP TESTING PAP TESTING [facility] Start: 2017 Screening for malign ant neoplasm of cervix Pap Smear [facility] Start: 2015 Urine microalbumin profile DTAP,TDAP,TD (1 - Tdap) [facility] Start: 2014 HEPATITIS C SCREENING HEPATITIS C [facility] Start: 2014 Hepatitis C screening Hepatitis C [facility] Start: 2014 HIV SCREENING HIV SCREENING [facility] Start: 2010 PEDS TO ADULT TRANSI TION ANNUAL ASSESSMENT PEDS TO ADULT TRANSITION ANNUAL ASSESSMENT [facility] Start: 2008 PEDS TO ADULT TRANSI TION INITIAL DISCUSSION PEDS TO ADULT TRANSITION INITIAL DISCUSSION [facility] Start: 2007 HPV VACCINE (1 - 2-d ose series) HPV VACCINE (1 - 2-dose series) [facility] Start: 02-16-2002 Varicella vaccination Varicell a Vaccines (1 of 2 - 2-dose childhood series) [facility] Start: 01-10-1997 COVID-19 VACCINE (#1) COVID-19 VACCI NE (#1) [facility] Start: 1996 HEPATITIS B (1 of 3 - 3-dose series) HEPATITIS B (1 of 3 - 3-dose series) [facility] Start: 1996 HIV screening HIV Screening [facility] Immunizations Immunization Date Immunization Notes Care Provider Fa cility 06-17-2022 tetanus toxoid, redu tiffanie diphtheria toxoid, and acellular pertussis vaccine, adsorbed Yusuf Gan DO Work Phone: [facility] 04-16-2018 tetanus toxoid, redu tiffanie diphtheria toxoid, and acellular pertussis vaccine, adsorbed Yusuf Gan DO Work Phone: [facility] 07-30-2013 human papilloma viru s vaccine, quadrivalent Yusuf Gan DO Work Phone: [facility] 03-29-2013 human papilloma viru s vaccine, quadrivalent Yusuf Gan DO Work Phone: [facility] 01-20-2013 HPV, unspecified formulation Yusuf Gan DO Work Phone: [facility] 01-20-2013 meningococcal polysaccharide (groups A, C, Y and W-135) diphtheria toxoid conjugate vaccine (MCV4P) Yusuf Gan DO Work Phone: [facility] 01-20-2013 tetanus toxoid, redu tiffanie diphtheria toxoid, and acellular pertussis vaccine, adsorbed Yusuf Gan DO Work Phone: [facility] 01-19-2002 diphtheria, tetanus toxoids and acellular pertussis vaccine, unspecified formulation Yusuf Gan DO Work Phone: [facility] 01-19-2002 measles, mumps and r ubella virus vaccine Yusuf Gan DO Work Phone: [facility] 01-19-2002 poliovirus vaccine, inactivated Yusuf Gan DO Work Phone: [facility] 11-08-1997 diphtheria, tetanus toxoids and acellular pertussis vaccine, unspecified formulation Yusuf Gan DO Work Phone: [facility] 11-08-1997 haemophilus influenz ae type b vaccine, PRP-T conjugate Yusuf Gan DO Work Phone: [facility] 11-08-1997 measles, mumps and r ubella virus vaccine Yusuf Gan DO Work Phone: [facility] 04-04-1997 hepatitis B vaccine, pediatric or pediatric/adolescent dosage Yusuf Gan DO Work Phone: [facility] 04-04-1997 trivalent poliovirus vaccine, live, oral Yusuf Gan DO Work Phone: [facility] 01-10-1997 diphtheria, tetanus toxoids and pertussis vaccine Yusuf Gan DO Work Phone: [facility] 01-10-1997 haemophilus influenz ae type b vaccine, PRP-T conjugate Yusuf Gan DO Work Phone: [facility] 1996 diphtheria, tetanus toxoids and pertussis vaccine Yusuf Rutlla DO Work Phone: [facility] 1996 haemophilus influenz ae type b vaccine, PRP-T conjugate Yusuf Gan DO Work Phone: [facility] 1996 trivalent poliovirus vaccine, live, oral Yusuf Jimeneza DO Work Phone: [facility] 1996 diphtheria, tetanus toxoids and pertussis vaccine Yusuf Bettencourtlla DO Work Phone: [facility] 1996 haemophilus influenz ae type b vaccine, PRP-T conjugate Yusuf Gan DO Work Phone: [facility] 1996 hepatitis B vaccine, pediatric or pediatric/adolescent dosage Yusuf Gan DO Work Phone: [facility] 1996 trivalent poliovirus vaccine, live, oral Yusuf Gan DO Work Phone: [facility] 1996 hepatitis B vaccine, pediatric or pediatric/adolescent dosage Yusuf Bettencourtlla DO Work Phone: [facility] Payers Date Payer Category Payer Medicaid [id number] 2022 Unknown [id number] 1996 Unknown [id number] 1996 Unknown [id number] Social History Date Type Detail Facility Start: 08-16-2022 Tobacco smoking status Never s moked tobacco (finding) [facility] Start: 1996 Sex Assigned At Female A [facility] Start: 08-16-2022 Tobacco use and exposure Smokeless tobacco non-user [facility] Start: 1996 Sex Assigned At Not on file C [facility] Tobacco smoking stat us MDIS Ex-smoker [facility] End: 06-13-2020 History of tobacco use Current smoker [facility] End: 06-13-2020 History of tobacco use Cigarette Smoker [facility] Start: 10-07-2022 Alcohol intake Current drinke r of alcohol (finding) [facility] Start: 09-27-2022 End: 10-07-2022 Exposure to SARS-CoV-2 (event) Not sure [facility] Functional Status Date Assessment Result Facility 04-02-2022 Functional Status Independent [facility] Mental Status Date Assessment Result Facility 04-02-2022 Mental Status Orientation Oriented x 4 [facility] Clinical Notes 04-02-2022 to 10-07-2022 Yusuf Gan DO - 10/07/2022 4:00 PM EDTPatient KARINA Flores - 08/16/2022 7:49 AM EST Note Date & Type Note Facility 10-07-2022 History of Present illness Narrative Images from the original note were not included. [facility] [address] [place] [id number] Visit type: Established Patient Reason for Visit: [...] She does feel the Lexapro is helpful. BISQUE TILE BURNER exams up-to-date No Known Allergies Current Outpatient [...] and upbeat today. documented in this encounter [facility] 08-16-2022 Note HNO ID: [id number] Author: KARINA Lim Service: ? Author Type: Physician Sand Molder Type: Progress Notes Filed: 08/16/2022 8:10 AM Note Text: This note was created using i'mma. Subjective Shakira Izquierdo is a 27 year old female. HPI 27-year-old female presents for sore throat and congestion. Patient has had a sore throat for the past 2 to 3 days. She has had congestion and postnasal drainage. 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 KARINA Lim [facility] 08-16-2022 Instructions KARINA Lim - 08/16/2022 [...] urine. Chest pain. documented in this encounter [facility] 08-16-2022 History of Present illness Narrative This note was created using Tinybeansriter. Subjective Shakira Izquierdo is a 27 year old female. HPI 27-year-old female presents for sore throat and congestion. Patient has had a sore throat for the past 2 to 3 days. She has had congestion and postnasal drainage. 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 KARINA Lim documented in this encounter [facility] 04-04-2022 Note . MICRO - Microbiology PROCEDURE: Urine Culture [*1] SOURCE: Urine BODY SITE: COLLECTED DATE/TIME: 04/02/2022 21:01 EDT RECEIVED DATE/TIME: 04/03/2022 14:26 EDT START DATE/TIME: 04/03/2022 14:26 EDT FREE TEXT SOURCE: FINAL REPORTS Final Report [] Verified Date/Time/Personnel: 04/04/2022 14:22 EDT 10,000 - 50,000 cfu/ml Mixed growth consistent with normal urogenital cherie. Performing Locations *1: This test was performed at: [facility], [address] [place] [address], [id number] , [facility] 04-02-2022 Hospital Discharge instructions Patient Education 04/02/2022 [...] Hold for 2 seconds, then slowly lower. 9275-4399 [employer] [address] [place] [address]. All rights reserved. This information is not [...] are taking other medicines. You may use jmeg-oyb-whkmzvw medicines such as acetaminophen, ibuprofen, or naprosyn [...] Chills Burning or pain when passing urine [id number] [employer] [address] [place] [address]. All rights reserved. This information is not intended as a substitute for professional medical care. Always follow your healthcare professional's instructions. Follow Up Care 04/02/2022 20:49:18 With:ULI ALVAREZ MD Address: [facility] [address] [place] [place] [address]- When:2-4 days Comments:If no improvement [facility] 04-02-2022 Note Discharge Instructions Thank you for allowing [facility] to assist you with your healthcare needs. [...] 2-4 days Why: If no improvement Where: [address] [place] [address]- Allergies NKA Medications Please ask your primary [...] may report side effects to FDA at [phone]-YYK-0632. What other drugs will affect tizanidine? Taking [...] drugs may affect tizanidine, including prescription and arql-qvr-stjgxme medicines, vitamins, and herbal products. Not all [...] to ensure that the information provided by [employer]. ('[employer]') is accurate, up-to-date, and complete, but no guarantee is made to that effect. Drug information contained herein may be time sensitive. [employer] information has been compiled for use by healthcare practitioners and consumers in the [place] and therefore [employer] does not warrant that uses outside of the [place] are appropriate, unless specifically indicated otherwise. [employer] drug information does not endorse drugs, diagnose patients or recommend therapy. [employer]ool drug information is an informational resource designed [...] effective or appropriate for any given patient. [employer] does not assume any responsibility for any aspect of healthcare administered with the aid of information [employer] provides. The information contained herein is not intended to cover all possible uses, directions, precautions, warnings, drug interactions, allergic reactions, or adverse effects. If you have questions about the drugs you are taking, check with your doctor, nurse or pharmacist. Copyright 0098-5723 [employer]. Version: 4.01. Revision Date: 08/14/2020. ibuprofen (EYE [...] may report side effects to FDA at 9-119-CRE-1897. What other drugs will affect ibuprofen? Ask [...] drugs may affect ibuprofen, including prescription and tthd-btx-slvffhz medicines, vitamins, and herbal products. Not all [...] to ensure that the information provided by [employer]. ('[employer]') is accurate, up-to-date, and complete, but no guarantee is made to that effect. Drug information contained herein may be time sensitive. [employer] information has been compiled for use by healthcare practitioners and consumers in the [place] and therefore [employer] does not warrant that uses outside of the [place] are appropriate, unless specifically indicated otherwise. [employer] drug information does not endorse drugs, diagnose patients or recommend therapy. [employer] drug information is an informational resource designed [...] effective or appropriate for any given patient. [employer] does not assume any responsibility for any aspect of healthcare administered with the aid of information [employer] provides. The information contained herein is not intended to cover all possible uses, directions, precautions, warnings, drug interactions, allergic reactions, or adverse effects. If you have questions about the drugs you are taking, check with your doctor, nurse or pharmacist. Copyright 0070-4448 [employer]. Version: 22.01. Revision Date: 05/03/2020. Education Materials [...] Hold for 2 seconds, then slowly lower. [id number] [employer] [address] [place] [address], [place] [address]. All rights reserved. This information is not [...] are taking other medicines. You may use whap-qnd-zaqippz medicines such as acetaminophen, ibuprofen, or naprosyn [...] Chills Burning or pain when passing urine [phone] [employer] [address] [place] [address]. All rights reserved. This information is not intended as a substitute for professional medical care. Always follow your healthcare professional's instructions. Additional Information VACCINATE! IT SAVES LIVES! Members of the community who have not yet received the COVID-19 vaccine and would like to receive it can visit one of [facility] vaccine clinics. There are many vaccine clinic locations within the [facility] [place]. For locations and available times, please visit [email or web address]. It is important to note that some COVID mobile vaccine clinics are held outdoors and may be canceled in rainy or stormy conditions. To learn more about pediatric vaccinations (ages 5-11), we invite you to visit the [facility] webpage. [email or web address] To learn more about the COVID-19 vaccine, we invite you to visit the [facility] website for a list of frequently asked questions. [email or web address]-Whr quently_[email or web address]-Questions.pdf [facility] [employer] Patient Portal Access Instructions: Stay connected with your healthcare team and access your personal medical information anytime with the [facility] Patient Portal. If you would like a full copy of your medical records please contact the [facility] Medical Records Department Friday through Friday between 8a.m. and 4:30p.m. Please follow the directions below to access the portal: 1.Access the email account you provided upon registration to the [facility].2.Look for an invitation email from [facility].3.Open the email and access the invitation link: Accept Invitation to [facility]4.Fill in the required cantrell to create your account. Sign into [email or web address] with your username and password that you [...] you will allow to register on the [facility] Patient Portal for access to your information. You can also access the [facility] Patient Portal on the [employer] stefano. Simply click on Health Records under [...] Call your local pharmacy or go to [email or web address] to find one close to you.3.Make use of household items: Use cat litter or old coffee grounds to dispose medications if other options are not available. Mix your drugs with these household products, seal them in an airtight container and throw it into the garbage. Call [facility]: [phone] to be sure your drugs can be [...] aware that I should contact my doctor. 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 04-02-2022 Evaluation + Plan note Diagnostic Tests PendingUrine Culture 04/02/22 [facility] Diagnosis Mild episode of recurrent major depressive disorder (HCC)- Primary Acute non-recurrent frontal sinusitis [facility] Narrative No data available for this section [facility] Summary Purpose Family History No Family [...] Member Role: Primary Care Physician Address: Address: [facility] [address] [place] [address]- Name: HAMIDA GASTON MD Position: ED Physician Member Role: ED Physician Address: Address: [address] [place] [address] Name: Kerrie Gaston RN Position: AO RN Member Role: RN Care Team Related Persons Name: ALICIA ACEVEDO Address: [address] [place] [address] [place] Name: ALICIA ACEVEDO Address: [address] [place] [address] [place] Name: ALICIA ACEVEDO Address: [address] [place] [address] [place] Name: ALICIA ACEVEDO Address: [address] [place] [address] [place] Name: ALICIA ACEVEDO Address: [address] [place] [address] [place] Name: ALICIA ACEVEDO Address: Home [address] [place], [place] [address] [place] [address] Name: ALICIA ACEVEDO Address: Home [address] [place], [place] [address] [address] [place] Name: ALICIA ACEVEDO Address: Home [address] [place], [place] [address] [place] [address] [place] Name: ALICIA ACEVEDO Address: Home [address] [place], [place] [address] [place] [id number] [place] Name: ALICIA ACEVEDO Address: Home [address] [place], [place] [address] [place] [id number] Name: ALICIA ACEVEDO Address: Home [address] [place] [id number] [place] Address: Temporary [address] [place], [place] [id number] Name: ALICIA ACEVEDO Address: Home [address] [place] [phone] [place] Address: Temporary [address] [place], [place] [id number] Name: KENNETH KOEHLER Address: Home [address] [id number] INFORMATION SOURCE (unrecogn ized section and content) DATE CREATED AUTHOR AUTHOR'S ORGANIZ ATION 08/17/2022 [facility] DATE CREATED AUTHOR AUTHOR'S ORGANIZ ATION 10/09/2022 [facility] DATE CREATED AUTHOR AUTHOR'S ORGANIZ ATION 03/15/2023 [facility] Source Comments (unrecognize d section and content) In the event this informatio n is protected by the Federal Confidentiality of Alcohol and Drug Abuse Patient Records regulations: The Federal rules restrict any use of the information to criminally investigate or prosecute any alcohol or drug abuse patient.[facility] Reason for Visit (unrecogniz ed section and content) Reason Comments Follow-up Med check Sinus Problem Care Teams (unrecognized sec tion and content) Engraved Roller Inspector Relationship Specialty Start Date End Date Yusuf Gan Kadie, DO [address] [place] [address] PCP - General 12/22/20 FOR RECORDS PERTAINING [...] BE BASED ON THE PRIMARY CLINICAL RECORDS. [facility] [employer] [facility]. provides no warranty or guarantee of the accuracy or completeness of information in this document.
[2023-08-08 22:55] VITALS: BP 138/71; PULSE 111; RESP 16; TEMP 36.2; O2SAT 97
== END 2023-08-08 22:56 | disposition home or self-care (01) ==
PROVIDERS: Emergency Provider Emergency Medicine; PCP Family Medicine; Visit Provider Emergency Medicine
DX: O99.53 Diseases of the respiratory system complicating the puerperium (principal); U07.1 COVID-19; Z28.310 Unvaccinated for COVID-19; Z79.899 Other long term (current) drug therapy; Z87.891 Personal history of nicotine dependence
CPT/HCPCS: 87631; 99282

== ENCOUNTER → 2023-09-19 | Outpatient (CLI) | payer MEDICAID, SELFPAY ==
[2023-09-19 10:30] LABS: Absolute Lymphocyte Count 2.92 X10^3/uL (0.83-4.51); Absolute Neutrophil Count 4.2 X10^3/uL (2.0-7.7); Basophil# 0.04 X10^3/uL; Basophil% 0.5 % (0-1); Eosinophil# 0.15 X10^3/uL; Eosinophils% 1.9 % (0-5); Hemoglobin 12.4 g/dL (12.0-15.0); Lymphocyte # 2.92 X10^3/ul (0.83-4.51); Lymphocyte % 36.7 % (19-41); Mean Corp Hgb Conc 32.6 g/dL (32-36); Mean Corpuscular Hgb 25.8 pg (27.0-32.0); Mean Corpuscular Volume 79.2 fL (81-99); Mean Platelet Vol. 9.1 fl (6.2-12.0); Monocyte# 0.63 X10^3/uL; Monocyte% 7.9 % (0-10); NRBC Flagged by Analyzer 0 % (0-5); Neutrophil # 4.19 X10^3/uL (2.7-7.7); Neutrophil % 52.6 % (47-70); Platelet Count 304 K/mm3 (150-450); RBC Distribution Width CV 13.8 % (11.6-14.6); RBC Distribution Width SD 39.3 fl (35.1-43.9)
[2023-09-19 10:47] LABS: Thyroid Stim Hormone (TSH) 1.29 uIU/mL (0.358-3.74); hCG Titer Quant., Serum < 1 mIU/mL (1-3)
== END | disposition home or self-care (01) ==
LOC: PAVLAB 10:04
PROVIDERS: PCP Family Medicine; Referring Provider Obstetrics & Gynecology; Visit Provider Obstetrics & Gynecology
DX: N93.9 Abnormal uterine and vaginal bleeding, unspecified (principal)
CPT/HCPCS: 36415; 84443; 84702; 85025

== ENCOUNTER 2024-03-27 19:53 | Emergency (ER) | payer MEDICAID, SELFPAY ==
[2024-03-27 19:53] VITALS: BP 145/75; PULSE 82; RESP 18; TEMP 36.2; O2SAT 100; BMI 39.2
--- NOTE | 2024-03-27 20:15 | EDS_ITS ---
HPI History of Present Illness Chief Complaint: Eye Problem Detail of Chief Complaint: Foreign body sensation left eye Informant: patient Narrative Narrative: Patient presents to the emergency department with a foreign body sensation to the left eye. Patient states that she fell like she needed to HRI about an hour and a half ago and ever since that time she has this foreign body sensation. Patient states she tried to flush it at home. She denies vision changes. Denies photophobia. She does not wear glasses or contacts. PFSH PFS Medical History (Updated 03/27/24 @ 20:[address] Last Castillo, DO) COVID-19 virus infection Infertility Gestational HTN Anemia in preg-unspec Contraception management History of third degree perineal laceration Rubella non-immune status, antepartum Anxiety Encounter for IUD removal PCOS (polycystic ovarian syndrome) Asthma Home Medications ?Medication ?Instructions ?Recorded ?Last Taken ?Type albuterol sulfate 90 mcg/actuation 1 puff inhalation ONCE PRN asthma 07/08/23 Unknown History aerosol inhaler nifedipine 30 mg tablet,extended 30 mg PO DAILY 09/19/23 Unknown History release 24 hr (Procardia XL) sertraline 50 mg tablet (Zoloft) 50 mg PO QDAY #30 tabs 09/19/23 Unknown Rx Allergy/AdvReac Type Severity Reaction Status Date / Time No Known Allergies Allergy Verified 03/27/24 19:53 Surgical History Status post bilateral salpingectomy S/P tubal ligation S/P section History of gynecologic surgery H/O dilation and curettage Social History household members: spouse and children housing: house number of children: 3 pets and animals: No Smoking Status: Former smoker second hand exposure: No alcohol intake: never substance use type: does not use caffeine: Yes what type of physical activity do you participate in: none seatbelt use: always do you feel safe at home: Yes 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 ROS ROS ED Review of Systems ROS Unobtainable: other Constitutional Constitutional ED: Reports lethargy; Denies chills, fever(s), sweats or weight loss Eyes Eyes: Reports other Details: Left eye foreign body sensation ; Denies blurry vision, change in vision or diplopia ENT ENT ED: Denies rhinorrhea or sore throat Cardiovascular Cardiovascular: Denies chest pain, orthopnea or racing heartbeat Respiratory/Chest Respiratory/Chest: Denies cough, dyspnea, dyspnea on exertion, orthopnea or sputum Gastrointestinal Gastrointestinal: Denies abdominal pain, diarrhea, nausea or vomiting Genitourinary Genitourinary ED: Denies dysuria, hematuria or urinary frequency Musculoskeletal Musculoskeletal: Denies arthralgias, back pain, myalgias or neck pain Integumentary Denies abscess, Abrasions or rash Neurologic Neurologic: Denies headache(s) or weakness Psychiatric Psychiatric: Denies anxiety, depression or suicidal thoughts Endocrine Endocrinology: Denies polydipsia, polyphagia or polyuria Hematologic/Lymphatic Hematologic/Lymphatic: Denies easy bleeding, easy bruising or lymphadenopathy Allergic/Immunologic Allergic/Immunologic ED: Denies mouth swelling, tongue swelling or urticaria EXAM Physical Exam Const Vital Signs: 03/27/24 19:53 Temperature 97.2 F L Temperature Source Temporal Pulse Rate 82 Respiratory Rate 18 Blood Pressure 145/75 H Blood Pressure Mean 98 Pulse Ox 100 Oxygen Delivery Method Room Air Positive well nourished and well developed General Appearance ED: well developed and NAD HEENT Reports TM's clear and moist mucous membranes HEENT Narrative: Left eye-eversion of the lower lid reveals a dark eyelash like foreign body. Using a cotton swab I was able to easily remove it. Patient had immediate relief of her symptoms. Pupils equal react light bilaterally. No obvious corneal abrasions. normocephalic and atraumatic; Negative for trauma or tenderness Tympanic Membrane ED: Yes TM's clear Eyes PERRL and EOMs intact bilaterally General Eye ED: Negative for pale conjunctiva or scleral icterus Neck no lymphadenopathy, supple and no JVD General: Negative for tenderness Chest Wall inspection of chest normal and palpation of chest normal Chest: Negative for tenderness Resp normal respiratory effort and clear to auscultation bilaterally Effort and Inspection: Negative for respiratory distress or pain with movement Auscultation: Negative for rhonchi, wheezes or diminished lung sounds Cardio regular rate, regular rhythm, S1 normal heart sound, S2 normal heart sound and no murmurs Peripheral Pulses: pulses 2+ throughout GI normal to inspection, nondistended, normoactive bowel sounds, soft to palpation, non-tender, non-distended and no masses Back/Spine no CVA tenderness and no thoracic nor lumbar tenderness Extremity normal to inspection General Extremety ED: Negative for edema General Extremity: Negative for edema Neuro oriented x3, CN's II-XII intact bilaterally, no sensory deficits noted and gait normal Sensorium / Orientation: awake, alert, oriented to person, oriented to place and oriented to time Motor Exam: strength 5/5 throughout and strength abnormal Psych mental status grossly normal Skin no rashes or lesions noted and no wounds MDM MDM MDM Narrative Medical decision making narrative: Patient with foreign body sensation to left eye. On exam she did have a foreign body noted underneath the lower lid that was able to easily removed. She had immediate relief of symptoms. Discharge Plan Triage Chief Complaint: Eye Problem ED Provider: Last Castillo Dx/Rx/DC Orders Clinical Impression: Acute foreign body of left eye Instructions: ED Conjunctival Foreign Body, Resolved Prescriptions: No Action nifedipine [Procardia XL] 30 mg tablet extended release 24hr 30 mg PO DAILY sertraline [Zoloft] 50 mg tablet 50 mg PO QDAY Qty: 30 12RF albuterol sulfate 90 mcg/actuation HFA aerosol inhaler 1 puff inhalation ONCE PRN (Reason: asthma) Primary Care Provider: Yusuf Gan Referrals: Yusuf Gan DO [Primary Care Provider] - As Needed Print Language: [place] Disposition Disposition: Home, Self Care
[2024-03-27 20:22] VITALS: BP 118/71; PULSE 78; RESP 16; TEMP 36.8; O2SAT 98
--- OUTSIDE RECORDS SUMMARY | 2024-03-27 20:22 | XMS RPT_ITS | CCD ---
Author Organization [facility] Inform ion Partnership [facility] Care Team Providers Care Panel Lay Up Worker Name Role Phone ULI ALVAREZ MD Primary Care Physician [phone] TONG GRANT., DR. MEI Attending UnavailULI Peres Primary Care Unavailable Yusuf Gan Primary Care Provider [phone] Yusuf Gan DO Primary Care Provider YUSUF GAN Attending Unavailable YUSUF GAN Primary Care Unavailable RISA PRIMARY CAREMD Primary Care Unavailable YOAN BASILIO Referring UnavailTEZ Delgado Attending Unavailable Yusuf Gan DO Primary Care Provider [phone] YUSUF GAN Primary Care Unavailable Medications Current Medications Medication Drug Class(es) Dates Sig (Normalized) Sig (Original) [id number] 200 actuat albuterol 0.09 mg/actuat metered dose inhaler (5 sources) beta2-Adrenergic Agonist Start: 05-03-2020 take 2 puff(s) by inhalation every six hours as needed albuterol HFA (PROAIR HFA) 90 mcg/actuation inhaler Inhale 2 Puffs as instructed every 6 hours as needed. 8 g 0 05/03/2020 Active Start: 04-23-2018 End: 01-19-2024 take 2 puff(s) by inhalation every four hours as needed albuterol HFA (PROAIR HFA) 90 mcg/actuation inhaler Inhale 2 Puffs as instructed every 4 hours as needed. 1 Inhaler 0 04/23/2018 01/19/2024 Discontinued Start: 04-23-2018 take 2 puff(s) by in halation every six hours as needed albuterol 108 (90 Base) MCG/ACT inhaler Inhale 2 puffs every 6 hours as needed. 0 04/23/2018 Active Comment on above: Inhale 2 Puffs as in structed every 4 hours as needed. Inhale 2 Puffs as in structed every 6 hours as needed. amoxicillin 500 mg oral capsule (1 source) Penicillin-class Antibacterial Start: 10-08-19 End: 10-18-19 take 1 capsule by mouth three times daily amoxicillin (Amoxil) 500 MG capsule Take 1 capsule (500 mg) by mouth 3 times daily for 10 days. 30 capsule 0 10/07/2022 10/17/2022 Active escitalopram 20 mg oral tablet (4 sources) Serotonin Reuptake Inhibitor Start: 10-08-19 End: 11-07-19 take 1 tablet by mouth once daily escitalopram (Lexapro) 20 MG tablet Take 1 tablet (20 mg) by mouth daily for 30 doses. 30 tablet 5 10/07/2022 11/06/2022 Active Start: 05-06-2022 End: 01-19-2024 take 1 tablet by mouth once daily escitalopram (Lexapro) 10 MG tablet Take 1 tablet (10 mg) by mouth daily. 30 tablet 0 08/22/2022 10/07/2022 Discontinued (Reorder) Comment on above: Take 10 mg by mouth once daily. ibuprofen 600 mg oral tablet (2 sources) Nonsteroidal Anti-inflammatory Drug Start: 04-02-2022 End: 04-09-2022 ibuprofen 600 mg oral tablet Dose : 600 mg = 1 tab(s), Oral, q6h, PRN for pain, Take with food or milk., X 7 day(s), # 28 tab(s), 0 Refill(s), 04/09/22 21:41:00 EDT Start Date: 04/02/22 Stop Date: 04/09/22 Status: Ordered Start: 07-14-2017 Motrin Oral, 0 Refill(s) Start Date: 07/14/17 Status: Ordered ondansetron 4 mg disintegrating oral tablet (1 source) Serotonin-3 Receptor Antagonist Start: 07-24-2022 ondansetron ODT (Zofran-ODT) 4 MG disintegrating tablet dissolve 1 tablet ON TONGUE every 8 hours if needed for nausea 0 07/24/2022 Active sertraline 50 mg oral tablet (1 source) Serotonin Reuptake Inhibitor Start: 09-19-2023 sertraline (ZOLOFT) 50 mg tablet Take by mouth. 0 09/19/2023 Active tiZANidine 2 mg oral capsule (1 source) Central alpha-2 Adrenergic Agonist Start: 04-02-2022 End: 04-09-2022 tiZANidine 2 mg oral capsule Dose : 2 mg = 1 cap(s), Oral, q8h, PRN as needed for muscle spasm, # 21 cap(s), 0 Refill(s) Start Date: 04/02/22 Stop Date: 04/09/22 Status: Ordered Completed/Discontinued Medications Medication Drug Class(es) Dates Sig (Normalized) Sig (Original) ethinyl estradiol 0.02 mg / levonorgestrel 0.1 mg oral tablet (1 source) Progestin, Estrogen, Progestin-containi ng Intrauterine Device Start: 08-16-2021 End: 10-07-2022 levonorgestrel-ethi nyl estradiol (Aviane, Alesse, Lessina) 0.1-20 MG-MCG tablet Ethinyl Estradiol / Norethindrone (3 sources) Estrogen End: 01-19-2024 Norethindrone Acet-Ethinyl Est 1.5-30 mg-mcg Take by mouth. 0 01/19/2024 Discontinued End: 10-07-2022 norethindrone ac-eth estradi o (Loestrin) 1.5-30 MG-MCG tablet tablet Take by mouth. 0 10/07/2022 Discontinued (Therapy completed) Norethindrone Ac et-Ethinyl Est 1.5-30 mg-mcg Take by mouth. 0 Active Comment on above: Take by mouth. Levonorgestrel (2 sources) Progestin, Progestin-containing Intrauterine Device End: 01-19-2024 levonorgestrel (MIRENA INTRAUTERINE) by INTRAUTERINE route. 0 01/19/2024 Discontinued levonorgestrel ( MIRENA INTRAUTERINE) by INTRAUTERINE route. 0 Active Comment on above: by INTRAUTERINE rout e. Problems Active Problems Problem Classification Problem Date Documented Da te Episodic/Chronic Asthma (2 sources) Asthma; Translations: [Mild intermittent asthma] Onset: 12-22-2020 08-28-2014 Chronic Genitourinary symptoms and ill-defined conditions (1 source) Increased frequency of urination; Translations: [Frequency of micturition] 01-19-2024 Episodic Menstrual disorders (1 source) Amenorrhea; Translations: [Amenorrhea, unspecified] 01-19-2024 Chronic Mood disorders (4 sources) Recurrent major [...] Results Test Name Value Interpretation Reference Range Facility [facility] 01-19-2024 CN Office Visit (UCWSTR ) DONNASHAKIRA Rosemary ([id number]) 1995 F Date Time Provider Department 01/19/24 9:30 AM GUERO VICENTE [facility] During your visit today, we recorded the following information about you: Temperature Pulse Respiration Blood pressure 97.6 degrees 86/minute 16/minute 110/78 Weight 114.2 kg Guero Vicente MD 01/19/2024 9:53 AM Signed Patient presents with: Urinary Frequency: Frequency and burning x 4 days HPI: Symptoms for 4 days. Dysuria: Yes, improved with monistat Frequency: Yes Hematuria: No Pruritus: initially, improved with OTC monistat Discharge: No Nausea: No Fever or chills: No Back pain: right lower Abdominal pain: No Prior UTI: Yes Personal history of kidney stones: Yes Last menstrual cycle was 2 months ago, current symptoms are similar to when she was . PAST MEDICAL HISTORY No date: Anxiety No date: Asthma No date: PCOS (polycystic ovarian syndrome) PAST SURGICAL HISTORY No date: SECTION HX No date: LIGATE FALLOPIAN TUBE No date: SALPINGECTOMY; Bilateral MEDICATIONS: Current Outpatient Medications Medication Sig sertraline (ZOLOFT) 50 mg tablet Take by mouth. albuterol HFA (PROAIR HFA) 90 mcg/actuation inhaler Inhale 2 Puffs as instructed every 6 hours as needed. No current facility-administered medications for this visit. ALLERGIES: ALLERGIES No Known Allergies VITALS: BP 110/78 Pulse 86 Temp 36.4 ?C (97.6 ?F) (Tympanic) Resp 16 Wt 114.2 kg (251 lb 12.3 oz) LMP 07/01/2019 (Exact Date) SpO2 97% PHYSICAL EXAM: GEN: NAD HEENT: EOMI, conjunctiva clear, HEART: regular rate and rhythm, no murmurs LUNGS: clear to auscultation, no wheezes or crackles, no increased WOB ABDOMEN: Soft, nondistended, no masses, no suprapubic tenderness BACK: Right lumbar tenderness ASSESSMENT/PLAN: 1. Urinary frequency - ICD9: 788.41, ICD10: R35.0 (primary diagnosis) - UA DIP, URINE (POC) - negative Declines testing for BV/yeast or other conditions. She will continue supportive care and follow up if not resolving. 2. Amenorrhea - ICD9: 626.0, ICD10: N91.2 - HCG QUAL UR B/O - negative. Guero Vicente MD Allergies As of Date: 01/19/2024 (No Known Allergies) Date Reviewed: 01/19/2024 Reviewed by: Natalie Gonzales LPN - Fully Assessed Reason for Visit: Urinary Frequency [1086] Cmt: Frequency and burning x 4 days Primary Visit Diagnosis:Urinary frequency [R35.0] Other Visit Diagnosis:Amenorrhea [N91.2] Order(s):UA DIP, URINE (POC) [[id number]] Order #: [id number]. #:[id number] HCG QUAL UR B/O [[id number]] Order #: [id number] UA DIP,URINE HCG (POC) [[id number]] Order #: [id number]. #:[id number] Prescriptions as of 01/19/2024 - sertraline (ZOLOFT) 50 mg tablet Take by mouth. - albuterol HFA (PROAIR HFA) 90 mcg/actuation inhaler Inhale 2 Puffs as instructed every 6 hours as needed. Problem List As Of Date: 01/19/2024 (None) Medications Discontinued During This Encounter Prescriptions - albuterol HFA (PROAIR HFA) 90 mcg/actuation inhaler (Discontinued) Reported on 07/29/2019 - escitalopram oxalate (LEXAPRO) 10 mg tablet (Discontinued) Reported on 01/19/2024 - levonorgestrel (MIRENA INTRAUTERINE) (Discontinued) Reported on 01/19/2024 - Norethindrone Acet-Ethinyl Est 1.5-30 mg-mcg (Discontinued) Reported on 08/16/2022 Encounter Status:Closed by GUERO VICENTE on 01/19/24 Normal [facility] UA DIP, URINE (POC)on 2023 BILIRUBIN UA (POCT) Negative Negative [facility] CLARITY UA (POCT) Slightly Cloudy Cl [facility] COLOR UA (POCT) Dark yellow [facility] GLUCOSE UA (POCT) Negative Negative mg/dL [facility] Hemoglobin Ql (U) Negative Negative [facility] KETONE UA (POCT) Negative Negative mg/dL [facility] LEUKOCYTES UA (POCT) Negative Negative [facility] NITRITE UA (POCT) Negative Negative [facility] PH UA (POCT) 5.5 4.5 - 8.0 [facility] Protein Ql (U) Negative Negative mg/dL [facility] SPECIFIC GRAVITY UA (POCT) >=1.030 1.005 - 1.030 [facility] UROBILINOGEN UA (POCT) 0.2 Normal E.U./dL [facility] Location:[address], [place], [place], [id number] [place] [address] [facility] UA DIP,URINE HCG (POC)on Beta HCG ( test) Ql (U) Negative Negative [facility] Comment on above: Location:[facility] [place], [address], [place], [address] [employer] Plug [employer]acer (POCT) Internal QC [place] [facility] Location:[facility] [place], [address], [place], [address] [facility] POINT OF CARE [facility] Office Visiton 10-07-2022 Follow-up visit [id number] Shakira Izquierdo 1995 F Date Provider Department Center 10/07/2022 [id number] GAN [facility] Family History Problem Relation Age of Onset Stroke Mother 42 No Known Problems Father Bipolar disorder Sister No Known Problems Brother Family Status - Relation Status Age at Mother Alive Father Alive Sister Alive Brother Alive Level of Service:21412 CO OFFICE/OUTPATIENT ESTABLISHED LOW MDM 20-29 MIN Reason for Visit and Comments: Follow-up [222478] - Med check Sinus Problem [99] Normal [facility] Progress Noteon 10-07-2022 Progress Note [facility] [address] [facility] [id number] Visit type: Established Patient Reason for Visit: [...] She does feel the Lexapro is helpful. [employer] exams up-to-date No Known Allergies Current Outpatient [...] Relation Name Age of Onset Stroke Mother Farcisco Jimenez No Known Problems Father Riky Bipolar disorder Sister 1/2 sis No Known Problems Brother 5 06/10 bro Objective: BP 108/69 Pulse 72 Temp 36.2 ?C (97.1 ?F) (Temporal) Ht 5' 7 (1.702 m) Wt 256 lb (116 kg) SpO2 99% BMI 40.10 kg/m? Physical Exam doe postnasal drip. Normal eardrums and adenopathy. No neck masses or thyroid lesions. Heart is regular. Lungs are clear. Abdomen obese nontender without pain hepatosplenomegaly or masses. She is well-groomed has good insight and eye contact. She is jovial and upbeat today. Normal [facility] 36on 08-30-2022 36 Patient was left a detailed message and to call the office if any questions., and ti schedule an apt with Dr Gan. [facility] 36 1 month supply was sent in by Dr. Gan last week. Patient is due for follow up anyway, can discuss with Dr. Gan at appt if she feels she needs dose adjustment. Thanks Normal [facility] 36 Rx loaded Normal [facility] 36on 08-22-2022 36 Rx loaded Last ov 02/07/2022 No next ov at this time [facility] STREP A MOLECULAR (POC)on Procedural Control Valid [facility] Strep A (POCT) Negative Negative [facility] .Urinalysis Microscopic (AO) on 04-02-2022 UA Bacteria Trace Abnormal [facility] ([place]) Comment on above: Performed By: #### U AMICAO, UA, PREGU #### [address] [place], [place] [address] UA RBC None Seen Normal None Seen [facility] ([place] Comment on above: Performed By: #### U AMICAO, UA, PREGU #### [address] [place], [place] [address] UA Squam Epithelial 5-10 Abnormal None Seen [facility] ([place]) Comment on above: Performed By: #### U AMICAO, UA, PREGU #### [address] [place], [place] [address] UA WBC 0-5 Abnormal None Seen [facility] ([place] Comment on above: Performed By: #### U AMICAO, UA, PREGU #### [address] [place], [place] [address] LABORATORYOrdered By: Flory Ruiz on 04-02-2022 Appearance (U) Clear (04/02/22 9:01 PM) Invalid Interpretation Code Clear AO Auto Urine SS Bacteria LM.HPF (Urine sed) [#/Area] Trace /HPF Invalid Interpretation Code AO Auto Urine SS Bilirubin Ql (U) Negative (04/02/22 9:01 PM) Invalid Interpretation Code Negative AO Auto Urine SS Color (U) Yellow (04/02/22 9:01 PM) Invalid Interpretation Code AO Auto Urine SS Glucose Test strip (U) [Mass/Vol] Negative Invalid Interpretation Code Negativemg/d L AO Auto Urine SS HCG ( test) Ql Negative (04/02/22 9:01 PM) Invalid Interpretation Code AO Manual Urine SS Hemoglobin Auto test strip (U) [Mass/Vol] Negative (04/02/22 9:01 PM) Invalid Interpretation Code Negative AO Auto Urine SS Ketones Ql (U) Negative Invalid Interpretation Code Negativemg/d L AO Auto Urine SS test (u) int Not detected Invalid Interpretation Code AO Manual Urine SS UA Leuk Est Small *ABN* (04/02/22 9:01 PM) Invalid Interpretation Code Negative AO Auto Urine SS UA Nitrite Negative (04/02/22 9:01 PM) Invalid Interpretation Code Negative AO Auto Urine SS UA pH 7.0 (04/02/22 9:01 PM) Invalid Interpretation Code 5.0 - 8.0 AO Auto Urine SS UA Protein Negative Invalid Interpretation Code Negativemg/d L AO Auto Urine SS UA RBC None Seen /HPF Invalid Interpretation Code None Seen/HPF AO Auto Urine SS UA Spec Grav 1.020 (04/02/22 9:01 PM) Invalid Interpretation Code 1.015-1.025 AO Auto Urine SS UA Specimen Type Clean Catch (04/02/22 9:01 PM) Invalid Interpretation Code AO Auto Urine SS UA Squam Epithelial 5-10 /HPF Invalid Interpretation Code None Seen/HPF AO Auto Urine SS UA Urobilinogen 0.2 E.U./dL Invalid Interpretation Code 0.2-1.0E.U./ dL AO Auto Urine SS WBC LM.HPF (Urine sed) [#/Area] 0-5 /HPF Invalid Interpretation Code None Seen/HPF AO Auto Urine SS PREGUon 04-02-2022 HCG ( test) Ql (U) Negative Normal [facility] ([place] Comment on above: Performed By: #### U AMICAO, UA, PREGU #### [address] [address] test (u) int Not detected Invalid Interpretation Code [facility] [place] Comment on above: Performed By: #### U AMICAO, UA, PREGU #### [address] [address] UAon 04-02-2022 Color (U) Yellow Normal [facility] ([place] Comment on above: Performed By: #### U AMICAO, UA, PREGU #### [place] [address] Glucose (U) [Mass/Vol] Negative Normal Negative [facility] ([place] Comment on above: Performed By: #### U AMICAO, UA, PREGU #### [place] [address] Ketones Ql (U) Negative Normal Negative [facility] ([place] Comment on above: Performed By: #### U AMICAO, UA, PREGU #### [place] [address] UA Appear Clear Normal Clear [facility] ([place] Comment on above: Performed By: #### U AMICAO, UA, PREGU #### [place] [address] UA Blood Negative Normal Negative [facility] ([place] Comment on above: Performed By: #### U AMICAO, UA, PREGU #### [place] [address] UA Leuk Est Small Abnormal Negative [facility] ([place] Comment on above: Performed By: #### U AMICAO, UA, PREGU #### [place] [address] UA Nitrite Negative Normal Negative [facility] ([place] Comment on above: Performed By: #### U AMICAO, UA, PREGU #### [place] [address] UA pH 7.0 Normal 5.0 - 8.0 [facility] ([place] Comment on above: Performed By: #### U AMICAO, UA, PREGU #### [place] [address] UA Protein Negative Normal Negative [facility] ([place] Comment on above: Performed By: #### U AMICAO, UA, PREGU #### [address] [address] UA Spec Grav 1.020 Normal 1.015-1.025 [facility] ([place] Comment on above: Performed By: #### U AMICAO, UA, PREGU #### [address] [place], [place] [address] UA Specimen Type Clean Catch Normal [facility] ([place] Comment on above: Performed By: #### U AMICAO, UA, PREGU #### [address] [address] UA Urobilinogen 0.2 E.U./dL Normal 0.2-1.0 [facility] ([place] Comment on above: Performed By: #### U AMICAO, UA, PREGU #### [address] [address] Urobilinogen (U) [Mass/Vol] Negative Normal Negative [facility] ([place] Comment on above: Performed By: #### U AMICAO, UA, PREGU #### [address] [address] Vital Signs Date Time Vital Sign Value Performing Clinician Facility 01-19-2024 09: Body temperature 97.59 [degF] Guero Vicente MD Work Phone: [facility] 01-19-2024 09: Body weight 114.2 kg Guero Vicente MD Work Phone: [facility] 01-19-2024 09:-040 Diastolic blood pressure 78 mm[Hg] Guero Vicente MD Work Phone: [facility] 01-19-2024 09:040 Heart rate 86 /min Guero Vicente MD Work Phone: [facility] 01-19-2024 09:040 Respiratory rate 16 /min Guero Vicente MD Work Phone: [facility] 01-19-2024 09:040 SaO2% (BldA) [Mass fraction] 97 % Guero Vicente MD Work Phone: [facility] 01-19-2024 09:26-0400 Systolic blood pressure 110 mm[Hg] Guero Vicente MD Work Phone: [facility] 10-07-2022 16:06-0400 Body height 170.2 cm Yusuf Gan DO Work Phone: [facility] 10-07-2022 16:06-0400 Body mass index (BMI) [Ratio] 40.1 kg/m2 Yusuf Gan DO Work Phone: [facility] 10-07-2022 16:06-0400 Body temperature 97.11 [degF] Yusuf Gan DO Work Phone: [facility] 10-07-2022 16:06-0400 Body weight 116.12 kg Yusuf Gan DO Work Phone: [facility] 10-07-2022 16:06-0400 Diastolic blood pressure 69 mm[Hg] Yusuf Gan DO Work Phone: [facility] 10-07-2022 16:06-0400 Heart rate 72 /min Yusuf Gan DO Work Phone: [facility] 10-07-2022 16:06-0400 SaO2% (BldA) [Mass fraction] 99 % Yusuf Gan DO Work Phone: [facility] 10-07-2022 16:06-0400 Systolic blood pressure 108 mm[Hg] Yusuf Gan DO Work Phone: [facility] 08-16-2022 07:41-0500 Body temperature 98.1 [degF] Krislyn Aberegg PA Work Phone: [facility] 08-16-2022 07:41-0500 Body weight 112.58 kg Krislyn Aberegg PA Work Phone: [facility] 08-16-2022 07:41-0500 Diastolic blood pressure 76 mm[Hg] Krislyn Aberegg PA Work Phone: [facility] 08-16-2022 07:41-0500 Heart rate 111 /min Krislyn Aberegg PA Work Phone: [facility] 08-16-2022 07:41-0500 Respiratory rate 18 /min Krislyn Aberegg PA Work Phone: [facility] 08-16-2022 07:41-0500 SaO2% (BldA) [Mass fraction] 99 % Krislyn Aberegg PA Work Phone: [facility] 08-16-2022 07:41-0500 Systolic blood pressure 132 mm[Hg] Krislyn Aberegg PA Work Phone: [facility] 04-02-2022 21:02-0400 Body height 170.[address] HAMIDA GASTON MD [facility] 04-02-2022 21:02-0400 Body temperature 98.78 [degF] DR HAMIDA GASTON MD [facility] 04-02-2022 21:02-0400 Body weight 113.[address] HAMIDA GASTON MD [facility] 04-02-2022 21:02-0400 Diastolic blood pressure 84 mm[Hg] DR HAMIDA GASTON MD [facility] 04-02-2022 21:02-0400 Heart rate 82 /min DR HAMIDA GASTON MD [facility] 04-02-2022 21:02-0400 Respiratory rate 18 /min DR HAMIDA GASTON MD [facility] 04-02-2022 21:02-0400 Systolic blood pressure 131 mm[Hg] DR HAMIDA GASTON MD [facility] Encounters Encounter Date Encounter Type Care Provider Facility Start: 01-19-2024 End: 01-19-2024 ambulatory YUSUF GAN Facility:[facility] Start: 01-19-2024 End: 01-19-2024 Patient encounter procedure Guero Vicente MD Work Phone: [facility] Comment on above: Urinary frequency (P rimary Dx); Amenorrhea Start: 03-10-2023 End: 03-10-2023 ambulatory NO PRIMARY CARE [facility] Start: 10-07-2022 End: 10-07-2022 ambulatory YUSUF [facility] Start: 10-07-2022 End: 10-07-2022 Office outpatient visit 15 minutes Yusuf Gan DO Work Phone: [facility] Comment on above: 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 HAMIDA GASTON MD. Facility: Start: 04-02-2022 End: 04-02-2022 Emergency department patient visit DR HAMIDA GASTON MD [facility] Procedures Date Procedure Procedure Detail Performing Clinician Start: 01-19-2024 UA DIP,URINE HCG (POC) [facility] Provider Start: 01-19-2024 Urnls dip stick/tabl et rgnt auto w/o microscopy Malissa Iniguez APRN.CNP Work Phone: Start: 08-16-2022 STREP A MOLECULAR (POC) Estevan COLLINS Work Phone: None (qualifier value) DR ROSALIO GASTON MD Plan of Treatment Date Care Activity Detail Author Start: 2046 Zoster Vaccines (1 of 2) Zoste r Vaccines (1 of 2) [facility] Start: 05-07-2033 Urine microalbumin profile DTaP,Tdap,Td Vaccine (11 - Td or Tdap) [facility] Start: 06-17-2032 DTaP/Tdap/Td Vaccine s (9 - Td or Tdap) DTaP/Tdap/Td Vaccines (9 - Td or Tdap) [facility] Start: 02-08-2024 Influenza vaccination Influenza Vacc ine (#1) [facility] Start: 04-09-2023 End: 04-09-2023 Patient encounter procedure 04/09/2023 Office Visit Family Medicine Yusuf Gan, [address] [place] [address] [facility] Start: 02-07-2023 Covid-19 Vaccine ( season) Covid-19 Vaccine ( season) [facility] Start: 02-07-2023 Influenza vaccination Influenz a Vaccine (Season Ended) [facility] Start: 06-09-2022 DEPRESSION ASSESSMENT DEPRESSION ASS ESSMENT [facility] Start: 02-07-2022 Influenza vaccination INFLUENZA (#1) [facility] Start: 2017 PAP TESTING PAP TESTING [facility] Start: 2017 Screening for malign ant neoplasm of cervix [facility] Start: 2015 Urine microalbumin profile DTAP,TDAP,TD (1 - Tdap) [facility] Start: 2014 Anxiety Screening Anxiety Screening [facility] Start: 2014 Depression Screening Depression Scre ening [facility] Start: 2014 HEPATITIS C SCREENING HEPATITIS C [facility] Start: 2014 Hepatitis C screening Hepatitis C [facility] Start: 2014 HIV SCREENING HIV SCREENING [facility] Start: 2014 HIV screening HIV Screening [facility] Start: 2010 PEDS TO ADULT TRANSI TION ANNUAL ASSESSMENT PEDS TO ADULT TRANSITION ANNUAL ASSESSMENT [facility] Start: 2008 PEDS TO ADULT TRANSI TION INITIAL DISCUSSION PEDS TO ADULT TRANSITION INITIAL DISCUSSION [facility] Start: 2007 HPV VACCINE (1 - 2-d ose series) HPV VACCINE (1 - 2-dose series) [facility] Start: 02-16-2002 Varicella vaccination Varicell a Vaccines (1 of 2 - 2-dose childhood series) [facility] Start: 01-10-1997 COVID-19 VACCINE (#1) COVID-19 VACCI NE (#1) [facility] Start: 1996 HEPATITIS B (1 of 3 - 3-dose series) HEPATITIS B (1 of 3 - 3-dose series) [facility] Start: 1996 HIV screening HIV Screening [facility] Urine test visual color cmprsn meths HCG QUAL UR B/O Lab Routine Amenorrhea Ordered: 01/19/2024 [facility] Work Phone: Comment on above: Ordered: 01/19/2024 Immunizations Immunization Date Immunization Notes Care Provider Raz kraft 05-07-2023 influenza virus vacc ine, unspecified formulation Guero Vicente MD Work Phone: [facility] 06-17-2022 tetanus toxoid, redu tiffanie diphtheria toxoid, and acellular pertussis vaccine, adsorbed Yusuf Jimeneza DO Work Phone: [facility] 04-16-2018 tetanus toxoid, redu tiffanie diphtheria toxoid, and acellular pertussis vaccine, adsorbed Yusuf Bettencourtlla DO Work Phone: [facility] 07-30-2013 human papilloma viru s vaccine, quadrivalent [facility]usuf [employer] [facility] Work Phone: [facility] 03-29-2013 human papilloma viru s vaccine, quadrivalent Yusuf [employer] [facility] DO Work Phone: [facility] 01-20-2013 HPV, unspecified formulation Yusuf Jimeneza DO Work Phone: [facility] 01-20-2013 meningococcal polysaccharide (groups A, C, Y and W-135) diphtheria toxoid conjugate vaccine (MCV4P) [facility] Work Phone: [facility] 01-20-2013 tetanus toxoid, redu tiffanie diphtheria toxoid, and acellular pertussis vaccine, adsorbed [facility] Work Phone: [facility] 01-19-2002 diphtheria, tetanus toxoids and acellular pertussis vaccine, unspecified formulation Yusuf Gan DO Work Phone: [facility] 01-19-2002 measles, mumps and rubella virus vaccine Yusuf Gan DO Work Phone: [facility] 01-19-2002 poliovirus vaccine, inactivated Yusuf Gan DO Work Phone: [facility] 11-08-1997 diphtheria, tetanus toxoids and acellular pertussis vaccine, unspecified formulation Yusuf Gan DO Work Phone: [facility] 11-08-1997 haemophilus influenz ae type b vaccine, PRP-T conjugate Yusuf Gan DO Work Phone: [facility] 11-08-1997 measles, mumps and rubella virus vaccine Yusuf Gan DO Work Phone: [facility] 04-04-1997 hepatitis B vaccine, pediatric or pediatric/adolescent dosage Yusuf Gan DO Work Phone: [facility] 04-04-1997 trivalent poliovirus vaccine, live, oral Yusuf Gan DO Work Phone: [facility] 01-10-1997 diphtheria, tetanus toxoids and pertussis vaccine Yusuf Gan DO Work Phone: [facility] 01-10-1997 haemophilus influenz ae type b vaccine, PRP-T conjugate Yusuf Gan DO Work Phone: [facility] 1996 diphtheria, tetanus toxoids and pertussis vaccine Yusuf Gan DO Work Phone: [facility] 1996 haemophilus influenz ae type b vaccine, PRP-T conjugate Yusuf Gan DO Work Phone: [facility] 1996 trivalent poliovirus vaccine, live, oral Yusuf Gan DO Work Phone: [facility] 1996 diphtheria, tetanus toxoids and pertussis vaccine Yusuf Gan DO Work Phone: [facility] 1996 haemophilus influenz ae type b vaccine, PRP-T conjugate Yusuf aGn DO Work Phone: [facility] 1996 hepatitis B vaccine, pediatric or pediatric/adolescent dosage Yusuf Gan DO Work Phone: [facility] 1996 trivalent poliovirus vaccine, live, oral Yusuf Gan DO Work Phone: [facility] 1996 hepatitis B vaccine, pediatric or pediatric/adolescent dosage Yusuf Gan DO Work Phone: [facility] Payers Date Payer Category Payer Medicaid [id number] 2022 Unknown [id number] 1996 Unknown [id number] 1996 Unknown [id number] Social History Date Type Detail Facility Start: 08-16-2022 Tobacco smoking status Never s moked tobacco (finding) [facility] Start: 1996 Sex Assigned At Female A [facility] Start: 08-16-2022 Tobacco use and exposure Smokeless tobacco non-user [facility] Start: 1996 Sex Assigned At Not on file [facility] End: 06-13-2020 History of tobacco use Current smoker [facility] End: 06-13-2020 History of tobacco use Cigarette Smoker [facility] Start: 10-07-2022 Alcohol intake Current drinke r of alcohol (finding) [facility] Start: 09-27-2022 End: 10-07-2022 Exposure to SARS-CoV-2 (event) Not sure [facility] Start: 05-18-2020 End: 01-19-2024 History of Social function [facility] Start: 05-18-2020 End: 01-19-[address] [facility] National Score (1-100), lower number is lower risk Not on file [facility] Functional Status Date Assessment Result Facility 04-02-2022 Functional Status Independent [facility] Mental Status Date Assessment Result Facility 04-02-2022 Mental Status Orientation Oriented x 4 [facility] Clinical Notes 04-02-2022 to 01-19-2024 Guero Vicente MD - 01/19/2024 9:30 AM Susana Gan DO - 10/07/2022 4:00 PM EDTPatiKARINA Ordonez - 08/16/2022 7:49 AM EST Note Date & Type Note Facility 01-19-2024 Note HNO ID: [id number] Author: GUERO VICENTE MD Service: ? Author Type: Physician Type: Progress Notes Filed: 01/19/2024 09:53 Note Text: Patient presents with: Urinary Frequency: Frequency and burning x 4 days HPI: Symptoms for 4 days. Dysuria: Yes, improved with monistat Frequency: Yes Hematuria: No Pruritus: initially, improved with OTC monistat Discharge: No Nausea: No Fever or chills: No Back pain: right lower Abdominal pain: No Prior UTI: Yes Personal history of kidney stones: Yes Last menstrual cycle was 2 months ago, current symptoms are similar to when she was . PAST MEDICAL HISTORY No date: Anxiety No date: Asthma No date: PCOS (polycystic ovarian syndrome) PAST SURGICAL HISTORY No date: SECTION HX No date: LIGATE FALLOPIAN TUBE No date: SALPINGECTOMY; Bilateral MEDICATIONS: Current Outpatient Medications Medication Sig sertraline (ZOLOFT) 50 mg tablet Take by mouth. albuterol HFA (PROAIR HFA) 90 mcg/actuation inhaler Inhale 2 Puffs as instructed every 6 hours as needed. No current facility-administered medications for this visit. ALLERGIES: ALLERGIES No Known Allergies VITALS: BP 110/78 Pulse 86 Temp 36.4 ?C (97.6 ?F) (Tympanic) Resp 16 Wt 114.2 kg (251 lb 12.3 oz) LMP 07/01/2019 (Exact Date) SpO2 97% PHYSICAL EXAM: GEN: NAD HEENT: EOMI, conjunctiva clear, HEART: regular rate and rhythm, no murmurs LUNGS: clear to auscultation, no wheezes or crackles, no increased WOB ABDOMEN: Soft, nondistended, no masses, no suprapubic tenderness BACK: Right lumbar tenderness ASSESSMENT/PLAN: 1. Urinary frequency - ICD9: 788.41, ICD10: R35.0 (primary diagnosis) - UA DIP, URINE (POC) - negative Declines testing for BV/yeast or other conditions. She will continue supportive care and follow up if not resolving. 2. Amenorrhea - ICD9: 626.0, ICD10: N91.2 - HCG QUAL UR B/O - negative. Guero Vicente MD [facility] 01-19-2024 History of Present illness Narrative Patient presents with: Urinary Frequency: Frequency and burning x 4 days HPI: Symptoms for 4 days. Dysuria: Yes, improved with monistat Frequency: Yes Hematuria: No Pruritus: initially, improved with OTC monistat Discharge: No Nausea: No Fever or chills: No Back pain: right lower Abdominal pain: No Prior UTI: Yes Personal history of kidney stones: Yes Last menstrual cycle was 2 months ago, current symptoms are similar to when she was . PAST MEDICAL HISTORY No date: Anxiety No date: Asthma No date: PCOS (polycystic ovarian syndrome) PAST SURGICAL HISTORY No date: SECTION HX No date: LIGATE FALLOPIAN TUBE No date: SALPINGECTOMY; Bilateral MEDICATIONS: Current Outpatient Medications Medication Sig sertraline (ZOLOFT) 50 mg tablet Take by mouth. albuterol HFA (PROAIR HFA) 90 mcg/actuation inhaler Inhale 2 Puffs as instructed every 6 hours as needed. No current facility-administered medications for this visit. ALLERGIES: ALLERGIES No Known Allergies VITALS: BP 110/78 Pulse 86 Temp 36.4 C (97.6 F) (Tympanic) Resp 16 Wt 114.2 kg (251 lb 12.3 oz) LMP 07/01/2019 (Exact Date) SpO2 97% PHYSICAL EXAM: GEN: NAD HEENT: EOMI, conjunctiva clear, HEART: regular rate and rhythm, no murmurs LUNGS: clear to auscultation, no wheezes or crackles, no increased WOB ABDOMEN: Soft, nondistended, no masses, no suprapubic tenderness BACK: Right lumbar tenderness ASSESSMENT/PLAN: 1. Urinary frequency - ICD9: 788.41, ICD10: R35.0 (primary diagnosis) - UA DIP, URINE (POC) - negative Declines testing for BV/yeast or other conditions. She will continue supportive care and follow up if not resolving. 2. Amenorrhea - ICD9: 626.0, ICD10: N91.2 - HCG QUAL UR B/O - negative. Guero Vicente MD documented in this encounter [facility] 10-07-2022 History of Present illness Narrative Images from the original note were not included. [facility] [address] [place] [id number] Visit type: Established Patient Reason for Visit: [...] She does feel the Lexapro is helpful. [employer] exams up-to-date No Known Allergies Current Outpatient [...] and upbeat today. documented in this encounter [facility] 08-16-2022 Instructions KARINA Lim - 08/16/2022 [...] urine. Chest pain. documented in this encounter [facility] 08-16-2022 History of Present illness Narrative This note was created using [facility]. Subjective Shakira Izquierdo is a 27 year old female. HPI 27-year-old female presents for sore throat and congestion. Patient has had a sore throat for the past 2 to 3 days. She has had congestion and postnasal drainage. 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 KARINA Lim documented in this encounter [facility] 04-04-2022 Note . MICRO - Microbiology PROCEDURE: Urine Culture [*1] SOURCE: Urine BODY SITE: COLLECTED DATE/TIME: 04/02/2022 21:01 EDT RECEIVED DATE/TIME: 04/03/2022 14:26 EDT START DATE/TIME: 04/03/2022 14:26 EDT FREE TEXT SOURCE: FINAL REPORTS Final Report [] Verified Date/Time/Personnel: 04/04/2022 14:22 EDT 10,000 - 50,000 cfu/ml Mixed growth consistent with normal urogenital cherie. Performing Locations *1: This test was performed at: [facility], [address] [place] [address], [id number] , [facility] ([place]) 04-02-2022 Hospital Discharge instructions Patient Education 04/02/2022 [...] Hold for 2 seconds, then slowly lower. 6107-4282 [employer]. [address] [place] [address], [place] [address]. All rights reserved. This information is not [...] are taking other medicines. You may use dreh-fql-aksbzfk medicines such as acetaminophen, ibuprofen, or naprosyn [...] Chills Burning or pain when passing urine 2782-1826 [employer]. [address] [place] [address]. All rights reserved. This information is not intended as a substitute for professional medical care. Always follow your healthcare professional's instructions. Follow Up Care 04/02/2022 20:49:18 With:ULI ALVAREZ MD Address: [facility] [address] [place] [id number]- When:2-4 days Comments:If no improvement [facility] 10-25-2022 Note Discharge Instructions Thank you for allowing [facility] to assist you with your healthcare needs. The following is important discharge information regarding your hospital visit. Diagnosis from Today's Visit Back pain Flank pain What to Do Next Instructions from Your Care Team Karl Villanueva, you likely have strain of your back [...] 2-4 days Why: If no improvement Where: [facility] [address] [place] [address]- Allergies NKA Medications Please ask your primary [...] retail pharmacies. Medication Leaflets tizanidine (glenn carr) Zanaflex What is the most important information I [...] may report side effects to FDA at 3-099-YPI-1276. What other drugs will affect tizanidine? Taking [...] drugs may affect tizanidine, including prescription and tkvi-zep-gskogqn medicines, vitamins, and herbal products. Not all [...] to ensure that the information provided by [employer]. ('[employer]') is accurate, up-to-date, and complete, but no guarantee is made to that effect. Drug information contained herein may be time sensitive. [employer] information has been compiled for use by healthcare practitioners and consumers in the [place] and therefore [employer] does not warrant that uses outside of the [place] are appropriate, unless specifically indicated otherwise. [employer] drug information does not endorse drugs, diagnose patients or recommend therapy. [employer] drug information is an informational resource designed [...] effective or appropriate for any given patient. [employer] does not assume any responsibility for any aspect of healthcare administered with the aid of information [employer] provides. The information contained herein is not intended to cover all possible uses, directions, precautions, warnings, drug interactions, allergic reactions, or adverse effects. If you have questions about the drugs you are taking, check with your doctor, nurse or pharmacist. Copyright 6851-5062 [employer]. Version: 4.01. Revision Date: 08/14/2020. ibuprofen (EYE [...] may report side effects to FDA at 7-958-ZTD-6151. What other drugs will affect ibuprofen? Ask [...] drugs may affect ibuprofen, including prescription and ouwk-ddj-zyzxyuf medicines, vitamins, and herbal products. Not all [...] to ensure that the information provided by [employer]. ('Peg Band[employer]') is accurate, up-to-date, and complete, but no guarantee is made to that effect. Drug information contained herein may be time sensitive. [employer] information has been compiled for use by healthcare practitioners and consumers in the [place] and therefore [employer] does not warrant that uses outside of the [place] are appropriate, unless specifically indicated otherwise. [employer] drug information does not endorse drugs, diagnose patients or recommend therapy. [employer] drug information is an informational resource designed [...] effective or appropriate for any given patient. [facility] does not assume any responsibility for any aspect of healthcare administered with the aid of information [facility] provides. The information contained herein is not intended to cover all possible uses, directions, precautions, warnings, drug interactions, allergic reactions, or adverse effects. If you have questions about the drugs you are taking, check with your doctor, nurse or pharmacist. Copyright 6429-7536 [facility] [employer]. Version: 22.. Revision Date: 05/03/2020. Education Materials Exercises to [...] Hold for 2 seconds, then slowly lower. 6397-9689 [employer]. [address] [place] [address]. All rights reserved. This information is not [...] are taking other medicines. You may use yqmd-yuy-xoqebwy medicines such as acetaminophen, ibuprofen, or naprosyn [...] Chills Burning or pain when passing urine 3131-7630 [employer]. [address] [place] [address], [place] [address]. All rights reserved. This information is not intended as a substitute for professional medical care. Always follow your healthcare professional's instructions. Additional Information VACCINATE! IT SAVES LIVES! Members of the community who have not yet received the COVID-19 vaccine and would like to receive it can visit one of [facility] vaccine clinics. There are many vaccine clinic locations within the [facility]. For locations and available times, please visit [email or web address]. It is important to note that some COVID mobile vaccine clinics are held outdoors and may be canceled in rainy or stormy conditions. To learn more about pediatric vaccinations (ages 5-11), we invite you to visit the [facility] webpage. [email or web address] [email or web address] [email or web address].html To learn more about the COVID-19 vaccine, we invite you to visit the [facility] website for a list of frequently asked questions. [email or web address] [email or web address].pdf [facility] Patient Portal Access Instructions: Stay connected with your healthcare team and access your personal medical information anytime with the [facility] Patient Portal. If you would like a full copy of your medical records please contact the [facility] Medical Records Department Friday through Friday between 8a.m. and 4:30p.m. Please follow the directions below to access the portal: 1.Access the email account you provided upon registration to the hospital.2.Look for an invitation email from [facility].3.Open the email and access the invitation link: Accept Invitation to [facility]4.Fill in the required cantrell to create your account. Sign into www.[employer] with your username and password that you [...] you will allow to register on the [facility] Patient Portal for access to your information. You can also access the [facility] Patient Portal on the [employer]. Simply click on Health Records under Health Data and then click on the [employer] logo. HOW TO SAFELY DISPOSE OF PRESCRIPTION [...] Call your local pharmacy or go to [email or web address] to find one close to you.3.Make use of household items: Use cat litter or old coffee grounds to dispose medications if other options are not available. Mix your drugs with these household products, seal them in an airtight container and throw it into the garbage. Call [facility]: [phone] to be sure your drugs can be [...] been reviewed and explained to me and I,IZQUIERDO SHAKIRA Rosemary understand my current condition and have read and understand these discharge instructions. I have received a written copy of the plan/instructions. If I have questions, I am aware that I should contact my doctor. 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 Mild episode of recurrent major depressive disorder (HCC)- Primary Acute non-recurrent frontal sinusitis [facility] Urinary frequency- Primary Amenorrhea Absence of menstruation documented in this encounter [facility] course Narrative No data available for this section [facility] Summary Purpose Family History No Family [...] Address: Address: [facility] [address] [place] [address]- Name: HAMIDA GASTON MD Position: ED Physician Member Role: ED Physician Address: Address: [address] [place] [id number] Name: Kerrie Gaston RN Position: AO RN Member Role: RN Care Team Related Persons Name: ALICIA ACEVEDO Address[address] Name: ALICIA ACEVEDO Address: Home [address] [place], [place] [address] [address] [place] Name: ALICIA ACEVEDO Address: [address] [place], [place] [address] Name: ALICIA ACEVEDO Address: Home [address] [place], [place] [address] [address] [place] Name: ELIANA ACEVEDOBETH Address: Home [address] [place], [place] [address] [address] [place] Name: ELIANA ACEVEDOBETH Address: [address] [place] [address] Name: ALICIA ACEVEDO Address: Home [address] [place], [place] [address] [address] [place] Name: ALICIA ACEVEDO Address: Home [address] [place] [address] [place] Name: ALICIA ACEVEDO Address: Home [address] [place], [place] [address] [address] [place] Name: ALICIA ACEVEDO Address: Home [address] [place], [place] [address] Name: ALICIA ACEVEDO Address: Home [address] [place] [phone] [place] Address: Temporary [address] [place] [phone] Name: ELIANA ACEVEDOBETH A Address: Home [address] [place] [phone] [place] Address: Temporary [address] [place] [phone] Name: KENNETH KOEHLER Address: Home [address] [place] [address] [place] INFORMATION SOURCE (unrecogn ized section and content) DATE CREATED AUTHOR 04/08/2022 [facility] ([place]) DATE CREATED AUTHOR AUTHOR'S ORGANIZ ATION 10/09/2022 [facility] DATE CREATED AUTHOR AUTHOR'S ORGANIZ ATION 03/15/2023 [facility] DATE CREATED AUTHOR AUTHOR'S ORGANIZ ATION 01/20/2024 [facility] Source Comments (unrecognize d section and content) In the event this informatio n is protected by the Federal Confidentiality of Alcohol and Drug Abuse Patient Records regulations: The Federal rules restrict any use of the information to criminally investigate or prosecute any alcohol or drug abuse patient.[facility] the event this information is protected by the Federal Confidentiality of Alcohol and Drug Abuse Patient Records regulations: The Federal rules restrict any use of the information to criminally investigate or prosecute any alcohol or drug abuse patient.[facility] Reason for Visit (unrecogniz ed section and content) Reason Comments Pain, Throat Pt reported + strep exposure, congestion x2 days. Reason Comments Follow-up Med check Sinus Problem Reason Comments Urinary Frequency Frequency and burnin g x 4 days Care Teams (unrecognized sec tion and content) Panel Lay Up Worker Relationship Specialty Start Date End Date Yusuf Gan [address] [place], [place] [id number] PCP - General Family Medicine 08/16/22 Panel Lay Up Worker Relationship Specialty Start Date End Date Yusuf Gan DO [address] [place], [place] [id number] PCP - General 12/22/20 Panel Lay Up Worker Relationship Specialty Start Date End Date Yusuf Gan DO [address] [place], [place] [id number] PCP - General Family Medicine 08/16/22 FOR RECORDS PERTAINING TO PATIENTS WHO ARE [...] BE BASED ON THE PRIMARY CLINICAL RECORDS. [facility] [employer] [facility]. provides no warranty or guarantee of the accuracy or completeness of information in this document.
== END 2024-03-27 20:25 | disposition home or self-care (01) ==
LOC: ED 20:19
PROVIDERS: Emergency Provider Emergency Medicine; PCP Family Medicine; Visit Provider Emergency Medicine
DX: T15.12XA Foreign body in conjunctival sac, left eye, initial encounter (principal); W44.8XXA Other foreign body entering into or through a natural orifice, initial encounter; Z87.891 Personal history of nicotine dependence
CPT/HCPCS: 99283

== ENCOUNTER 2024-09-11 10:29 | Emergency (ER) | payer SELFPAY ==
[2024-09-11 10:30] VITALS: BP 156/73; PULSE 85; RESP 14; TEMP 35.7; O2SAT 99
--- NOTE | 2024-09-11 10:36 | EDS_ITS ---
HPI <KARINA Rider - Last Filed: 09/11/24 11:44> History of Present Illness Chief Complaint: Lower Extremity Injury Narrative Narrative: Patient presenting today with pain to her right knee after mechanical fall occurred this morning. She tripped over a baby gate and landed directly on her right knee. She reports pain with bearing weight onto her right lower extremity. She denies any other injury from the fall, she did not hit her head or lose consciousness. She has not yet taken anything for her pain. PFSH <KARINA Rider - Last Filed: 09/11/24 11:44> [facility] Medical History delivery delivered hypertension COVID-19 virus infection Infertility Gestational HTN History of third degree perineal laceration Rubella non-immune status, antepartum Anxiety PCOS (polycystic ovarian syndrome) Asthma Home Medications ?Medication ?Instructions ?Recorded ?Last Taken ?Type albuterol sulfate 90 mcg/actuation 1 puff inhalation O NCE PRN asthma 07/08/23 Unknown History aerosol inhaler nifedipine 30 mg tablet,extended 30 mg PO DAILY Unknown History release 24 hr (Procardia XL) escitalopram oxalate 10 mg tablet 10 mg PO DAILY #30 t abs 08/31/24 Unknown Rx (Lexapro) Allergy/AdvReac Type Severity Reaction Status Date / Time No Known Allergies Allergy Verified 09/11/24 10:30 Surgical History Status post bilateral salpingectomy S/P tubal ligation S/P section History of gynecologic surgery H/O dilation and curettage Social History household members: spouse and children housing: house number of children: 3 pets and animals: No Smoking Status: Former smoker second hand exposure: No alcohol intake: never substance use type: does not use caffeine: Yes what type of physical activity do you participate in: none seatbelt use: always do you feel safe at home: Yes 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 ROS <KARINA Rider - Last Filed: 09/11/24 11:44> ROS ED Constitutional Constitutional ED: Denies chills or fever(s) Cardiovascular Cardiovascular: Denies chest pain Respiratory/Chest Respiratory/Chest: Denies dyspnea Musculoskeletal Musculoskeletal: Reports arthralgias Integumentary Denies Abrasions Neurologic Neurologic: Denies paresthesias EXAM <KARINA Rider - Last Filed: 09/11/24 11:44> Physical Exam Const Vital Signs: 09/11/24 10:30 09/11/24 11:13 Temperature 96.2 F L 96.2 F L Temperature Source Temporal Pulse Rate 85 85 Respiratory Rate 14 14 Blood Pressure 156/73 H 156/73 H Blood Pressure Mean 100 100 Pulse Ox 99 99 Oxygen Delivery Method Room Air Positive well nourished, well developed and no apparent distress General Appearance ED: well developed HEENT Reports normocephalic and head/scalp atraumatic Mouth ED: Yes moist mucous membranes normal Eyes PERRL and EOMs intact bilaterally Neck full ROM and supple Chest Wall inspection of chest normal Resp normal respiratory effort and clear to auscultation bilaterally Cardio regular rate and regular rhythm Back/Spine normal ROM and normal to inspection Extremity normal to inspection Extremity Narrative: Limited range of motion to the right knee due to pain but flexor and extensor mechanisms intact. No joint effusion to the right knee, pain to the superior aspect of the knee, right DP pulse 2+, good cap refill, sensation intact. No proximal fibular tenderness. No joint laxity on exam Neuro oriented x3, CN's II-XII intact bilaterally, moves all extremities, no focal motor deficits and no sensory deficits noted Sensorium / Orientation: awake and alert Psych mental status grossly normal and thought process normal Skin no rashes or lesions noted and no wounds <Dr. Last Castillo DO - Last Filed: 09/11/24 11:08> Physical Exam Const Vital Signs: 09/11/24 10:30 09/11/24 11:13 Temperature 96.2 F L 96.2 F L Temperature Source Temporal Pulse Rate 85 85 Respiratory Rate 14 14 Blood Pressure 156/73 H 156/73 H Blood Pressure Mean 100 100 Pulse Ox 99 99 Oxygen Delivery Method Room Air MDM <KARINA Rider - Last Filed: 09/11/24 11:44> [facility] MDM Narrative Medical decision making narrative: Patient presenting with right knee pain after tripping over a baby gate and landing directly on her right knee. Extensor mechanism intact. X-ray of the knee will be obtained. Patient given ibuprofen and ice for pain. X-ray n egative for any acute findings. Patient given an Fredo wrap and crutches. She can alternate Tylenol and ibuprofen as needed for her pain. RICE instructions were discussed. She is to follow-up with her PCP and will be discharged home in stable condition. I have personally performed a face to face assessment of the patient and have reviewed the LISA Note. I performed a substantive portion of the visit including all aspects of the following. My meade findings include: History is [patient presents to the emergency department with injury to her right knee. Patient states that she tripped over a baby gate and fell directly onto her knee. She does not think she twisted it. Having hard time bearing weight secondary to pain. Denies any other injuries.] Exam is [HEENT-PERRLA, EOMI. Cranial nerves II through XII grossly intact. TMs clear. Mucous membranes moist. No adenopathy. Cardiovascular-regular rate and rhythm without murmur or ectopy Lungs-clear to auscultation, chest wall stable without crepitus or subcu emphysema Abdomen-normoactive bowel sounds, soft, nontender, no rebound or rigidity, no peritoneal signs. Extremities-intact ?4, normal range of motion, normal pulses. Right knee- patient has diffuse tenderness over the medial joint line and anterior aspect of the knee and patella. There is no ecchymosis or bruising noted. No significant soft tissue swelling. Normal anterior and posterior drawer test. Negative Dev's test. No laxity noted with varus and valgus stress. Patient able to lift her leg off the bed without difficulty and her extensor mechanism is intact. She is neurovascular intact distally.] Medical Decison Making [x-rays of the right knee obtained showed no fractures. Patient will be given an Fredo wrap and crutches. She is advised to use ice to the area. She is to use ibuprofen or Tylenol for discomfort. She is to follow- up with her primary care physician within next 5 to 7 days.] Other additions or changes: [None] Radiography Diagnostic Testing: Clinical Impression(s) from Imaging Studies Knee X-Ray 09/11/24 10:40 IMPRESSION: No acute process appreciated. No significant degenerative change. Reading Location: [facility] <Dr. Last Castillo, DO - Last Filed: 09/11/24 11:08> [facility] MDM Narrative Medical decision making narrative: Patient presenting with right knee pain after tripping over a baby gate and landing directly on her right knee. Extensor mechanism intact. X-ray of the knee will be obtained. Patient given ibuprofen and ice for pain. I have personally performed a face to face assessment of the patient and have reviewed the LISA Note. I performed a substantive portion of the visit including all aspects of the following. My meade findings include: History is [patient presents to the emergency department with injury to her right knee. Patient states that she tripped over a baby gate and fell directly onto her knee. She does not think she twisted it. Having hard time bearing weight secondary to pain. Denies any other injuries.] Exam is [HEENT-PERRLA, EOMI. Cranial nerves II through XII grossly intact. TMs clear. Mucous membranes moist. No adenopathy. Cardiovascular-regular rate and rhythm without murmur or ectopy Lungs-clear to auscultation, chest wall stable without crepitus or subcu emphysema Abdomen-normoactive bowel sounds, soft, nontender, no rebound or rigidity, no peritoneal signs. Extremities-intact ?4, normal range of motion, normal pulses. Right knee- patient has diffuse tenderness over the medial joint line and anterior aspect of the knee and patella. There is no ecchymosis or bruising noted. No significant soft tissue swelling. Normal anterior and posterior drawer test. Negative Dev's test. No laxity noted with varus and valgus stress. Patient able to lift her leg off the bed without difficulty and her extensor mechanism is intact. She is neurovascular intact distally.] Medical Decison Making [x-rays of the right knee obtained showed no fractures. Patient will be given an Fredo wrap and crutches. She is advised to use ice to the area. She is to use ibuprofen or Tylenol for discomfort. She is to follow- up with her primary care physician within next 5 to 7 days.] Other additions or changes: [None] Radiography Diagnostic Testing: Clinical Impression(s) from Imaging Studies Knee X-Ray 09/11/24 10:40 IMPRESSION: No acute process appreciated. No significant degenerative change. Reading Location: [facility] Right knee-4 view x-rays of the right knee obtained interpreted by myself as no evidence of fracture or dislocation. Radiology in agreement. Discharge Plan Triage Chief Complaint: Lower Extremity Injury ED Midlevel Provider: Frances Houser ED Provider: Last Castillo Dx/Rx/DC Orders Clinical Impression: Contusion of knee, right Instructions: ED Contusion, Lower Extremity Prescriptions: No Action escitalopram oxalate [Lexapro] 10 mg tablet 10 mg PO DAILY Qty: 30 11RF nifedipine [Procardia XL] 30 mg tablet extended release 24hr 30 mg PO DAILY albuterol sulfate 90 mcg/actuation HFA aerosol inhaler 1 puff inhalation ONCE PRN (Reason: asthma) Primary Care Provider: Yusuf Gan Referrals: Yusuf Gan DO [Primary Care Provider] - Cuauhtemoc Young DO [Med Staff - Active Staff] - 1 Week if not improving Activity Restrictions/Additional Instructions: You can follow-up with orthopedics in a week if no improvement of your pain. Ice the area, alternate Tylenol and ibuprofen as needed for pain. Print Language: Czech Disposition Disposition: Home, Self Care Discharge Date/Time: 09/11/24 11:27
--- NOTE | 2024-09-11 10:40 | RAD_ITS ---
PROCEDURE: KNEE 4 OR MORE VIEWS 09/11/2024 REASON FOR EXAM: FALL, KNEE PAIN Initial encounter TECHNIQUE: 4 view(s) of the right knee COMPARISON: None FINDINGS: Bones: Normal mineralization. No fractures. No dislocation. Joints: Unremarkable. Cartilage height preserved. Effusion: None. Soft tissues: Unremarkable. Other: RAD/Knee 4 or More Views IMPRESSION: No acute process appreciated. No significant degenerative change. Reading Location: [facility]
[2024-09-11] MEDS: Ibuprofen 600 MG Tablet PO (10:48)
[2024-09-11 11:13] VITALS: BP 156/73; PULSE 85; RESP 14; TEMP 35.7; O2SAT 99
== END 2024-09-11 11:27 | disposition home or self-care (01) ==
PROVIDERS: Emergency Provider Emergency Medicine; PCP Family Medicine; Visit Provider Emergency Medicine
DX: S80.01XA Contusion of right knee, initial encounter (principal); W18.09XA Striking against other object with subsequent fall, initial encounter; J45.909 Unspecified asthma, uncomplicated; Z79.899 Other long term (current) drug therapy; Z87.891 Personal history of nicotine dependence
CPT/HCPCS: 73564; 99283